=== PATIENT | female | born 1960 | race Caucasian/White ===

== ENCOUNTER 2017-03-06 12:40 | Emergency (ER) | payer MEDICAID, SELFPAY ==
[2017-03-06 12:40] VITALS: BP 160/103; PULSE 67; RESP 18; TEMP 36.5; O2SAT 98; BMI 20.7
--- NOTE | 2017-03-06 13:23 | RAD_ITS ---
STUDY: X-RAY CHEST REASON FOR EXAM: Female, 56 years old. Shortness of breath. Hypertension. Left arm tightness. TECHNIQUE: Single AP portable view of the chest. COMPARISON: Comparison is made with prior study dated November 07, 2012. FINDINGS: EKG electrodes are seen. Hyperinflation. Scattered calcified granulomas. The lungs are clear. There is no demonstrated pleural abnormality. Normal size heart. Normal mediastinum and katina. Normal visualized pulmonary arteries. Normal visualized aortic arch and descending thoracic aorta. There are degenerative changes of the visualized thoracic spine. Normal visualized ribs, clavicles, and shoulders. There is no demonstrated abnormality of the visualized soft tissue structures of the upper abdomen. RAD/Chest 1 View (Portable) IMPRESSION: Normal x-ray examination of the chest. Electronically Signed: Edis Esparza MD at 14:06 EST Tel [phone], Service support ,
--- NOTE | 2017-03-06 13:23 | EKG12_ITS ---
Test Reason : CP Blood Pressure : / mmHG Vent. Rate : 066 BPM Atrial Rate : 066 BPM P-R Int : 116 ms QRS Dur : 086 ms QT Int : 390 ms P-R-T Axes : 040 025 056 degrees QTc Int : 408 ms Normal sinus rhythm Normal ECG Confirmed by RANJITH RUSSELL ([id number]), publishing editor GELACIO RATLIFF ([id number]) on 03/09/2017 1:24:52 PM Referred By: OFELIA Confirmed By:RANJITH RUSSELL
[2017-03-06 13:25] VITALS: BP 135/77; PULSE 67; RESP 22; O2SAT 96
[2017-03-06] MEDS: Aspirin 81 MG TAB.CHEW 324 MG PO (13:32)
[2017-03-06 13:34] LABS: Absolute Lymphocyte Count 2.29 X10^3/ul (0.83-4.51); Absolute Neutrophil Count 5.4 X10^3/uL (2.0-7.7); Basophil# 0.02 X10^3/uL; Basophil% 0.2 % (0-1); Eosinophil# 0.21 X10^3/uL; Eosinophils% 2.5 % (0-5); Hematocrit 40.3 % (37-47); Hemoglobin 12.8 g/dl (12.0-15.0); Lymphocyte # 2.29 X10^3/ul (4.0); Lymphocyte % 27.3 % (19-41); Mean Corp Hgb Conc 31.8 g/gl (32-36); Mean Corpuscular Hgb 28.1 pg (27.0-32.0); Mean Corpuscular Volume 88.4 fL (81-99); Monocyte# 0.44 X10^3/uL; Monocyte% 5.3 % (0-10); Neutrophil % 64.5 % (47-70); POSITIVE COUNT NO; POSITIVE DIFFERENTIAL NO; POSITIVE MORPHOLOGY NO; Platelet Count 219 K/mm3 (150-450); RBC Distribution Width CV 14.3 % (11.6-14.6); RBC Distribution Width SD 45.7 fl (35.1-43.9); Red Blood Count 4.56 M/mm3 (4.2-5.4); White Blood Count 8.4 K/mm3 (4.4-11.0)
[2017-03-06 13:48] VITALS: O2SAT 97
[2017-03-06 13:50] LABS: Anion Gap 9 (5-15); BUN 11 mg/dL (7-18); BUN/Creat Ratio 11.5 RATIO (10-20); Calcium,Total 9.2 mg/dL (8.5-10.1); Chloride 105 mmol/L (98-107); Creatinine, Serum 0.96 mg/dL (0.55-1.02); D-Dimer Quantitative (DVT/PE) < 0.27 FEU/ug/m (0.27-0.49); EST Glomerular Filtration Rate 64 mL/min (>60); Est Glom Filt Rate - Afr Amer 77 mL/min (>60); Estimated Creatinine Clearance 57.17 ml/min; Glucose 139 mg/dL (70-110); Potassium 3.7 mmol/L (3.5-5.1); Sodium Level 143 mmol/L (136-145)
[2017-03-06] MEDS: 0.9% Normal Saline 1,000 ML 150 ML IV (13:52)
--- NOTE | 2017-03-06 14:24 | ED.DCSUM_ITS ---
- ER Visit Summary Date of Service: 03/06/17 Chief Complaint: Chest pain History of Present Illness: The patient is a [address] Mackey for breast cancer with metastases. She does not have a primary care physician. Reports that she has chest pain again approximately 3 weeks ago. She describes as a constant waxing and waning tightness that is 8 out of 10 at worst and 6 out of 10 currently. Is worsened by nothing including exertion. It is not pleuritic. It is relieved by nothing. Reports that she has had nausea, diaphoresis, and shortness of breath. However, she is related these to an estrogen wanda that she is on. Physical Examination: Vitals: Stable. Afebrile. General: Well-nourished and well-developed. Head: Normocephalic atraumatic. Neck: Supple, no lymphadenopathy. No JVD. Nontender. Cardiovascular: Regular rate and rhythm. No murmurs. Respiratory: No respiratory distress. Clear to auscultation bilaterally. Abdominal: Soft, nontender, nondistended, normal bowel sounds. No guarding, rebound, or peritoneal signs. Back: Nontender. Extremities: Nontender, no edema. Skin: Normal color, no rash. Neurologic: Alert and oriented ?3. Cranial nerves II through XII are intact. Normal strength and sensation. Psych: Normal affect. Test Results: EKG is sinus at 66 with no acute changes. Chest x-ray is normal. CBC is normal. Chem-7 is marked for glucose 139. Troponin is negative. D- dimer is negative. Emergency Department Course and Treatment: Patient was initially treated with aspirin p.o. She was given albuterol aerosol with no relief. Treatment Plan: Patient is resting comfortably would like to go home. She will be discharged instructions to follow-up with Dr. Myers in 3-5 days for another exam. Return to the emergency department for any worsening symptoms. Disposition: To home in improved and stable condition. Impression: 1. Atypical chest pain. This note was generated with [employer] dictation software. It may contain incorrect words, spelling, and punctuation that were not noted in review of the chart prior to signing ED Disposition - Plan for ED Patient: Disposition: Home or Assisted Living Chief Complaint: Hypertension Instructions: ED Chest Pain Atypical Unkn Cause Referrals: George Low MD [STAFF PHYSICIAN] - 5-7 Days
[2017-03-06] MEDS: Albuterol 2.5 MG/3 ML VIAL.NEB. INHALATION (14:43)
[2017-03-06 14:45] VITALS: PULSE 68; RESP 10
[2017-03-06 15:08] VITALS: BP 128/78; PULSE 69; RESP 20; O2SAT 96
== END 2017-03-06 15:10 | disposition home or self-care (01) ==
LOC: ED 14:13
PROVIDERS: Emergency Provider Emergency Medicine
DX: R07.89 Other chest pain (principal); C50.919 Malignant neoplasm of unspecified site of unspecified female breast; R11.0 Nausea; R61 Generalized hyperhidrosis; R06.00 Dyspnea, unspecified; I49.3 Ventricular premature depolarization; Z90.11 Acquired absence of right breast and nipple; Z90.710 Acquired absence of both cervix and uterus; Z72.89 Other problems related to lifestyle; F17.210 Nicotine dependence, cigarettes, uncomplicated; Z79.818 Long term (current) use of other agents affecting estrogen receptors and estrogen levels
CPT/HCPCS: 71045; 80048; 84484; 85025; 85379; 93005; 94640; 96360; 99285; J7050; A4216

== ENCOUNTER 2019-02-25 09:30 | Outpatient (RCR) | payer MEDICAID, SELFPAY ==
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
--- NOTE | 2019-04-19 14:00 | HP.PT.NRP ---
HP - Discharge Summary (1) - Patient Information CELINA FRANKLIN was seen in my office for initial evaluation on 01/15/19. The following Plan of Care was established for this patient: Initial Frequency: 2x /Week Initial Duration: 4-6 Weeks - Anticipated Interventions Patient/Client Instruction: Educate patient on: Condition, Plan of Care, Risk Factors, Benefits of Fitness Program For the Purpose of:: To improve self management Therapeutic Exercise to Include: Strength training, Body mechanics, Postural training, In an aquatic setting, Dynamic Lumbar Stabilization For the Purpose of:: To decrease pain, To decrease swelling/inflammation, To improve muscle performance and motor function, To improve ability of physical actions for home/community/work/leisure, To improve gait and locomotor functions This patient was last seen in our office 02/25/19. Pertinent comments regarding their Physical therapy will appear below: This patient has not returned to Physical Therapy and is appropriate to return to MD for further follow-up as needed. At this point I will be discontinuing this patient from physical therapy. I would be happy to see this patient again in the future if found appropriate by the physician. Thank you! Sarah Seaman, PT, Cert MDT
== END 2019-02-25 19:00 | disposition home or self-care (01) ==
LOC: PT 09:30
DX: S39.012D Strain of muscle, fascia and tendon of lower back, subsequent encounter (principal)
CPT/HCPCS: 97014; 97035; 97110; 97113; 97162; 97530; G0283

== ENCOUNTER → 2019-12-18 14:20 | Outpatient (CLI) | payer MEDICAID, SELFPAY ==
--- NOTE | 2019-12-18 15:59 | NEURO ---
NCS and/or EMG Patient Report Ordering Doctor: Jose Angel Cunningham DATE OF SERVICE: 12/18/19 Shakira Reagan presents for electrodiagnostic testing of the upper limbs. She reports numbness and tingling in both hands. She reports a history of carpal tunnel release. Electrodiagnostic findings: Median motor nerve demonstrates normal distal latency, amplitude and conduction velocity bilaterally. Ulnar motor response within normal limits bilaterally. Normal median ulnar F-wave. Sensory responses are within normal limits. Needle EMG testing was performed in the left upper limb and showed no evidence of denervation with normal motor unit action potentials. Patient refused testing in the right upper limb. Electrodiagnostic assessment: This is a normal electrodiagnostic study of the upper limbs. There is no electrodiagnostic evidence noted for peripheral neuropathy, including carpal tunnel syndrome. If there are any further questions, please do not hesitate to contact me.
== END ==
PROVIDERS: Referring Provider Orthopaedic Surgery; Visit Provider Orthopaedic Surgery
DX: G56.01 Carpal tunnel syndrome, right upper limb (principal)
CPT/HCPCS: 95886; 95913

== ENCOUNTER 2021-07-08 16:09 | Emergency (ER) | payer MEDICAID, SELFPAY ==
[2021-07-08 16:10] VITALS: BP 150/93; PULSE 71; RESP 18; TEMP 36.4; O2SAT 96; BMI 20.9
--- NOTE | 2021-07-08 16:29 | EDS_ITS ---
HPI HPI - GI History of Present Illness Chief Complaint: Nausea/Vomiting/Diarrhea Narrative Narrative: Patient presents with nausea, vomiting, and diarrhea that she has had for the last 2 days. She states it started out as loose stool that turned white, she states she also started passing small blood clots in her stool today. She does not take blood thinners. Today, she vomited twice because she felt sick to her stomach and nauseated. She denies any fevers or chills. No significant prior abdominal surgeries. She feels weak, and exhausted. She denies any recent antibiotic use. No problems with dysuria or hematuria. She complains of abdominal cramping. [facility] Medical History Breast CA Home Medications biotin 2 mg PO QWEEK 03/06/17 [History Last Taken Unknown] mv-min-vit C-Glu-Kym [id number] [Airborne Tablet Chewable] 1 ea PO PRN PRN 03/06/17 [History Last Taken Unknown] ciprofloxacin HCl [Cipro] 500 mg PO DAILY 5 Days #5 tab 07/08/21 [Rx Last Taken Unknown] famotidine [Pepcid] 20 mg PO DAILY 07/08/21 [History Last Taken Unknown] pantoprazole [Protonix] 40 mg PO BID 7 Days #14 tab 07/08/21 [Rx Last Taken Unknown] varenicline [Chantix] 0.5 mg PO BID 07/08/21 [History Last Taken Unknown] Allergy/AdvReac Type Severity Reaction Status Date / Time anastrozole [From Arimidex] Allergy Unknown Verified 07/08/21 16:12 exemestane [From Aromasin] Allergy Unknown Verified 07/08/21 16:12 letrozole Allergy Unknown Verified 07/08/21 16:12 tamoxifen Allergy Unknown Verified 07/08/21 16:12 Social History Smoking Status: Current every day smoker tobacco type: cigarettes ROS ROS ED ROS Narrative Constitutional: No fever, no chills. HEENT: No sore throat. No neck pain. No loss of vision. No rhinorrhea. Cardiovascular: No chest pain. No palpitations. No pedal edema. Respiratory: No cough, no shortness of breath. Abdominal: Diffuse, crampy abdominal pain. Positive nausea. 2 episodes of nonbloody vomiting. Multiple episodes of diarrhea/loose stool. Possibly passing small blood clots. Genitourinary: No dysuria. No hematuria. Musculoskeletal: No myalgias. No arthralgias. Neurologic: No headaches. No dizziness. No lightheadedness. Skin: No rash. No change in color. Psychiatric: No depression. No anxiety. EXAM Physical Exam Narrative Exam Narrative: Afebrile. Vital signs noted. HEENT: Normocephalic. Atraumatic. PERRL, EOMI. Neck soft and supple. No point tenderness or step off. Cardiovascular: Regular rate and rhythm. No murmurs, rubs, or gallops appreciated. Respiratory: No tachypnea. Lungs clear to auscultation bilaterally. Gastrointestinal: Abdomen soft, diffuse tenderness to palpation, with normoactive bowel sounds. No rebound or guarding. Neurological: Awake. Alert. Nonfocal, nonlateralizing. Skin: No rash. Normal color. No pallor. Musculoskeletal: No pedal edema. Full range of motion extremities. Const Vital Signs: 07/08/21 16:10 Temperature 97.5 F L Temperature Source Temporal Pulse Rate 71 Respiratory Rate 18 Blood Pressure 150/93 H Blood Pressure Mean 112 Pulse Ox 96 Oxygen Delivery Method Room Air MDM MDM MDM Narrative Medical decision making narrative: Comprehensive work-up was pursued. I will obtain a CBC, CMP, and lipase. I do feel CT imaging is indicated. She will be bolused normal saline 1 L intravenously and ondansetron for her nausea and vomiting. Patient has a normal white count of 6.8, hemoglobin normal at 12.5, platelet count normal at 230. Electrolyte panel shows chloride slightly elevated at 108 but normal sodium and potassium. Glucose normal at 96. Lipase normal at 171. Urinalysis shows no evidence of infection. I do not feel antibiotics are indicated. Her CT of the abdomen pelvis does show gastritis and colitis. I discussed patient with Dr. Hart. She will be placed on 5 days of Cipro once a day and also on Protonix twice a day for 7 days. She will follow- up with gastroenterology. She would like to go home. I feel she can be discharged safely home with follow-up. Return instructions to the emergency department were reviewed. Disposition is discharged home in stable condition. Lab Data Attestation: I reviewed the patient's lab results. Labs: Laboratory Results - last 24 hr 07/08/21 07/08/21 07/08/21 16:39 16:39 17:00 WBC 6.8 RBC 4.42 Hgb 12.5 Hct 39.1 MCV 88.5 MCH 28.3 MCHC 32.0 RDW Std Deviation 43.1 RDW Coeff of Rylee 13.2 Plt Count 230 MPV 8.9 Immature Gran % (Auto) 0.300 Neut % (Auto) 60.3 Lymph % (Auto) 27.8 Davidson % (Auto) 7.8 Eos % (Auto) 3.5 Baso % (Auto) 0.3 Absolute Neuts (auto) 4.1 Absolute Lymphs (auto) 1.88 Nucleated RBC % 0 Sodium 142 Potassium 3.7 Chloride 108 H Carbon Dioxide 28.0 Anion Gap 6 BUN 14 Creatinine 0.84 Estim Creat Clear Calc 64.64 Est GFR (MDRD) Af Amer 88 Est GFR (MDRD) Non-Af 72 BUN/Creatinine Ratio 16.6 Glucose 96 Calcium 9.2 Total Bilirubin 0.30 AST 44 H ALT 32 Alkaline Phosphatase 77 Total Protein 7.2 Albumin 3.9 Globulin 3.3 Albumin/Globulin Ratio 1.2 Lipase 171 Urine Color Yellow Urine Clarity Clear Urine pH 6.5 Ur Specific [place] 1.010 Urine Protein Negative Urine Glucose (UA) Normal Urine Ketones Negative Urine Occult Blood Negative Urine Nitrite Negative Urine Bilirubin Negative Urine Urobilinogen Normal Ur Leukocyte Esterase Negative Urine RBC 0 SEEN Urine WBC 0 SEEN Ur Squamous Epith Cells 0-5 SEEN Urine Bacteria RARE Urine Mucus 0 SEEN Radiography Diagnostic Testing: Clinical Impression(s) from Imaging Studies Abdomen/Pelvis CT 07/08/21 17:29 IMPRESSION: (NOT LISTED IN ORDER OF SIGNIFICANCE) Gastritis. Distal colitis. Other findings as above. Electronically Signed: Herbie Breaux MD at 18:00 EDT , Discharge Plan Triage Chief Complaint: Nausea/Vomiting/Diarrhea ED Provider: Tanner Sherman Dx/Rx/DC Orders Clinical Impression: Gastritis, Colitis, Nausea vomiting and diarrhea Instructions: ED Understanding Colitis, ED Gastritis (Adult) Prescriptions: New ciprofloxacin HCl [Cipro] 500 mg tablet 500 mg PO DAILY 5 Days Qty: 5 RF: 0 pantoprazole [Protonix] 40 mg tablet,delayed release (DR/EC) 40 mg PO BID 7 Days Qty: 14 RF: 0 No Action mv-min-vit C-Glu-Kym [id number] [Airborne (with lysine acetate)] 1 EACH tablet,chewable 1 ea PO PRN PRN (Reason: Not Specified) RF: 0 biotin 1 MG capsule 2 mg PO QWEEK RF: 0 famotidine [Pepcid] 20 mg Tablet 20 mg PO DAILY RF: 0 varenicline [Chantix] 0.5 mg Tablet 0.5 mg PO BID RF: 0 Primary Care Provider: Christiano Wooten Referrals: Curtis Hart DO [STAFF PHYSICIAN] - As soon as possible Christiano Wooten MD [Primary Care Provider] - Disposition Disposition: Home, Self Care Discharge Date/Time: 07/08/21 19:04
[2021-07-08 16:56] LABS: Absolute Lymphocyte Count 1.88 X10^3/uL (0.83-4.51); Absolute Neutrophil Count 4.1 X10^3/uL (2.0-7.7); Basophil# 0.02 X10^3/uL; Basophil% 0.3 % (0-1); Eosinophil# 0.24 X10^3/uL; Eosinophils% 3.5 % (0-5); Hematocrit 39.1 % (37-47); Hemoglobin 12.5 g/dL (12.0-15.0); Lymphocyte # 1.88 X10^3/ul (0.83-4.51); Lymphocyte % 27.8 % (19-41); Mean Corpuscular Hgb 28.3 pg (27.0-32.0); Mean Corpuscular Volume 88.5 fL (81-99); Mean Platelet Vol. 8.9 fl (6.2-12.0); Monocyte# 0.53 X10^3/uL; Monocyte% 7.8 % (0-10); NRBC Flagged by Analyzer 0 % (0-5); Neutrophil # 4.08 X10^3/uL (2.7-7.7); Neutrophil % 60.3 % (47-70); Platelet Count 230 K/mm3 (150-450); RBC Distribution Width CV 13.2 % (11.6-14.6); RBC Distribution Width SD 43.1 fl (35.1-43.9); Red Blood Count 4.42 M/mm3 (4.2-5.4); White Blood Count 6.8 K/mm3 (4.4-11.0)
[2021-07-08] MEDS: 0.9% Normal Saline 1,000 ML 1000 ML IV (16:57)
[2021-07-08] MEDS: Ondansetron 4 MG/2 ML Vial IV (16:58)
[2021-07-08 17:08] LABS: Mucous, Urine 0 SEEN /hpf (<or=2+); Red Blood Cells-Urine 0 SEEN /hpf (0-5)
[2021-07-08 17:13] LABS: ALB/GLOB Ratio 1.2 RATIO (0.9-2.4); AST(SGOT) 44 U/L (15-37); Alanine Aminotransfer ALT/SGPT 32 U/L (13-56); Albumin, Serum 3.9 g/dL (3.2-5.0); Alkaline Phosphatase 77 U/L (45-117); Anion Gap 6 (5-15); BUN 14 mg/dL (7-18); BUN/Creat Ratio 16.6 RATIO (10-20); Calcium,Total 9.2 mg/dL (8.5-10.1); Chloride 108 mmol/L (98-107); Creatinine, Serum 0.84 mg/dL (0.55-1.02); EST Glomerular Filtration Rate 72 mL/min (>60); Est Glom Filt Rate - Afr Amer 88 mL/min (>60); Estimated Creatinine Clearance 64.64 ml/min; Globulin 3.3 g/dL (2.2-4.2); Glucose 96 mg/dL (74-106); Lipase 171 U/L (73-393); Potassium 3.7 mmol/L (3.5-5.1); Protein, Total 7.2 g/dL (6.4-8.2); Sodium Level 142 mmol/L (136-145)
[2021-07-08 17:27] LABS: Color, Urine Yellow (Yellow); Glucose, Dipstick Normal (Normal); Ketone-Dipstick Negative (Negative); Leukocyte Esterase-Dipstick Negative /ul (Negative); Nitrite-Dipstick Negative (Negative); Occult Blood-Urine Negative /ul (Negative); Protein-Dipstick Negative (Negative); Urine Bilirubin Dipstick Negative (Negative); Urine Clarity Clear (Clear); Urine Urobilinogen Normal (Normal); Urine pH 6.5 (5.0 - 8.0)
--- NOTE | 2021-07-08 17:29 | CT_ITS ---
STUDY: CT Abdomen And Pelvis W/ Contrast Injection 07/08/2021 5:57 PM REASON FOR EXAM: Female, 60 years old. ABDOMINAL PAIN Pain TECHNIQUE: Transaxial images were obtained without oral contrast, and IV 100mL Isovue-300 intravenous contrast. Individualized dose optimization techniques were used for this CT. COMPARISON: None. FINDINGS: The visualized lung bases are unremarkable. The visualized portions of the heart are within normal limits. Unremarkable liver. Unremarkable gallbladder and extrahepatic biliary system. Unremarkable spleen. Unremarkable pancreas. Unremarkable bilateral adrenal glands. No acute findings of the right kidney. No acute findings of the left kidney. Focal wall thickening of the antrum of stomach. This can suggest a gastritis. Unremarkable small intestine. There is wall thickening of the distal colon. There is also questionable inflammation around the colon. This can suggest a colitis. This can also suggest incomplete distension of the colon. The appendix is visualized and appears unremarkable. There are calcifications of the abdominal aorta. This is consistent for atherosclerotic disease. There is no abdominal aortic aneurysm. Unremarkable inferior vena cava. Subcentimeter mesenteric lymph nodes. Unremarkable urinary bladder. There is absence of the uterus consistent with a prior hysterectomy. There is an umbilical hernia containing fat. Unremarkable osseous structures. CT/Abdomen/Pelvis W IV Cont ONLY IMPRESSION: (NOT LISTED IN ORDER OF SIGNIFICANCE) Gastritis. Distal colitis. Other findings as above. Electronically Signed: Herbie Breaux MD at 18:00 EDT ,
[2021-07-08 17:40] LABS: Bacteria RARE /hpf (None Seen); Squamous Epithelial Cells - UA 0-5 SEEN /hpf (5-10)
[2021-07-08] MEDS: Ciprofloxacin 500 MG Tablet PO (19:01)
[2021-07-08] MEDS: Pantoprazole Sodium 40 MG Tablet PO (19:02)
[2021-07-08 20:19] LABS: White Blood Cells 0 SEEN /hpf (0-5)
== END 2021-07-08 19:04 | disposition home or self-care (01) ==
PROVIDERS: Emergency Provider Emergency Medicine; PCP Internal Medicine; Visit Provider Emergency Medicine
DX: K52.9 Noninfective gastroenteritis and colitis, unspecified (principal); F17.210 Nicotine dependence, cigarettes, uncomplicated; K29.70 Gastritis, unspecified, without bleeding; Z85.3 Personal history of malignant neoplasm of breast
CPT/HCPCS: 74177; 80053; 81001; 83690; 85025; 96361; 96374; 99283; J7030; Q9967; A4216; J2405

== ENCOUNTER 2021-07-28 08:07 | Emergency (ER) | payer MEDICAID, SELFPAY ==
[2021-07-28 08:08] VITALS: BP 160/89; PULSE 68; RESP 24; TEMP 36.3; O2SAT 95; BMI 21.0
--- NOTE | 2021-07-28 08:41 | EDS_ITS ---
HPI History of Present Illness Chief Complaint: Shortness of Breath Informant: patient Onset/Context/Timing Onset: Weeks (2) Context: gradual Timing: Continuous and Waxes and wanes Quality: Positive for Dyspnea on exertion and Wheezing Current Severity: Moderate Maximum Severity: Moderate Worsened by: Exertion and Coughing Relieved by: Rest Associated Symptoms cough Chest Pain: Positive for Tightness Narrative Narrative: Patient has been sick for about 2 weeks, coughing, wheezing, now she is hoarse. No fevers or chills. Had a home COVID test that was negative a couple times. She is not getting better. She was diagnosed with COPD but is on no maintenance medications for it and does not have an inhaler and really has never had a major flareup like this before. She has some chest tightness and points to the top of her chest and states it feels like it is up here, not in my lungs. No leg edema orthopnea. [facility] Medical History (Updated 07/28/21 @ 11:[address] Jose Angel Becerra MD) Breast CA COPD (chronic obstructive pulmonary disease) GERD (gastroesophageal reflux disease) Home Medications biotin 1 mg capsule 2 mg PO QWEEK 03/06/17 [History Last Taken Unknown] mv-min-vit [id number] tammy-herb #124 250 mg-12.5 mg chewable tablet (Airborne (with lysine acetate)) 1 ea PO PRN PRN Not Specified 03/06/17 [History Last Taken Unknown] ciprofloxacin HCl 500 mg tablet (Cipro) 500 mg PO DAILY 5 days #5 tabs 07/08/21 [Rx Last Taken Unknown] famotidine 20 mg tablet (Pepcid) 20 mg PO DAILY 07/08/21 [History Last Taken Unknown] pantoprazole 40 mg tablet,delayed release (Protonix) 40 mg PO BID 7 days #14 tabs 07/08/21 [Rx Last Taken Unknown] varenicline 0.5 mg tablet 0.5 mg PO BID 07/08/21 [History Last Taken Unknown] albuterol sulfate 90 mcg/actuation aerosol inhaler (Ventolin HFA) 1 - 2 puff inhalation Q4H PRN PRN Wheezing ##1 07/28/21 [Rx Last Taken Unknown] levofloxacin 750 mg tablet 750 mg PO Q24H #5 tabs 07/28/21 [Rx Last Taken Unknown] prednisone 10 mg tablet 10 mg PO DAILY #34 TABLETS 07/28/21 [Rx Last Taken Unknown] Allergy/AdvReac Type Severity Reaction Status Date / Time anastrozole [From Arimidex] Allergy Unknown Verified 07/28/21 08:44 exemestane [From Aromasin] Allergy Unknown Verified 07/28/21 08:44 letrozole Allergy Unknown Verified 07/28/21 08:44 tamoxifen Allergy Unknown Verified 07/28/21 08:44 Social History Smoking Status: Current every day smoker tobacco type: cigarettes ROS ROS ED Constitutional Constitutional ED: Denies chills or fever(s) Eyes Eyes: Denies change in vision or diplopia ENT ENT ED: Reports hoarseness; Denies rhinorrhea or sore throat Cardiovascular Cardiovascular: Denies chest pain or palpitations Respiratory/Chest Respiratory/Chest: Reports cough, dyspnea, dyspnea on exertion and wheezing Gastrointestinal Gastrointestinal: Denies abdominal pain, diarrhea, nausea or vomiting Genitourinary Genitourinary ED: Denies dysuria or hematuria Musculoskeletal Musculoskeletal: Denies back pain or neck pain Integumentary Denies abscess or rash Neurologic Neurologic: Denies headache(s), paresthesias or weakness Psychiatric Psychiatric: Denies anxiety or suicidal thoughts EXAM Physical Exam Const Vital Signs: 07/28/21 08:08 07/28/21 08:44 07/28/21 08:55 Temperature 97.3 F L Temperature Source Temporal Pulse Rate 68 73 Respiratory Rate 24 H 20 H Respiratory Effort Normal Non-Labored Respiratory Depth Normal Respiratory Pattern Normal Tachypnea Blood Pressure 160/89 H Blood Pressure Mean 112 Pulse Ox 95 Oxygen Delivery Method Room Air Room Air Positive well nourished and well developed General Appearance ED: well developed and NAD HEENT Reports moist mucous membranes HEENT Narrative: Hoarse voice. No stridor. normocephalic and atraumatic Eyes PERRL and EOMs intact bilaterally Neck full ROM, supple, no meningeal signs and no JVD Resp normal respiratory effort Resp Narrative: Diffuse inspiratory and expiratory wheezes Cardio regular rate, regular rhythm and no murmurs Rate: Negative for tachycardic GI non-tender and non-distended Auscultation: normoactive bowel sounds Palpation: soft Back/Spine no CVA tenderness General Back: other FROM Extremity normal to inspection General Extremety ED: Negative for edema, pulses abnormal or tenderness General Extremity: Negative for edema or pulses abnormal Neuro oriented x3, CN's II-XII intact bilaterally and no sensory deficits noted Sensorium / Orientation: awake and alert Motor Exam: strength 5/5 throughout Skin no rashes or lesions noted and no wounds MDM MDM MDM Narrative Medical decision making narrative: Patient feeling better after nebulizer treatments. She was started on prednisone 60 mg here. 2 view chest x-ray on my interpretation shows left lower lobe pneumonia. Radiology in agreement. She is not hypoxic and breathing better. She is not septic. I think she can be treated as an outpatient, states she was diagnosed with COPD but on no maintenance treatments. I want to have her referred to pulmonology at [facility], we will place her on Levaquin, steroids, and prescribe her a rescue inhaler which she also does not have. We discussed reasons to return. She is comfortable with that plan. Radiography Diagnostic Testing: Clinical Impression(s) from Imaging Studies Chest X-Ray 07/28/21 09:20 IMPRESSION: Left lower lobe infiltrate. Hyperinflation. Electronically Signed: Edis Esparza MD at 9:34 EDT , Discharge Plan Triage Chief Complaint: Shortness of Breath ED Provider: Jose Angel Becerra Dx/Rx/DC Orders Clinical Impression: Pneumonia, Acute exacerbation of chronic obstructive pulmonary disease Instructions: COPD Meds, ED COPD Flare, ED Pneumonia (Adult) Prescriptions: New levofloxacin 750 mg tablet 750 mg PO Q24H Qty: 5 0RF albuterol sulfate [Ventolin HFA] 90 mcg/actuation HFA aerosol inhaler 1 - 2 puff inhalation Q4H PRN PRN (Reason: Wheezing) Qty: 1 0RF prednisone 10 mg tablet 10 mg PO DAILY Qty: 34 0RF Rx Instructions: 4 po qd x 4 days, 3 po qd x 3 days, 2 po qd x 3 days, 1 po qd x 3 days No Action mv-min-vit C-Glu-Kym [id number] [Airborne (with lysine acetate)] 1 EACH tablet,chewable 1 ea PO PRN PRN (Reason: Not Specified) biotin 1 MG capsule 2 mg PO QWEEK famotidine [Pepcid] 20 mg Tablet 20 mg PO DAILY varenicline [Chantix] 0.5 mg Tablet 0.5 mg PO BID ciprofloxacin HCl [Cipro] 500 mg tablet 500 mg PO DAILY 5 Days Qty: 5 0RF pantoprazole [Protonix] 40 mg tablet,delayed release (DR/EC) 40 mg PO BID 7 Days Qty: 14 0RF Primary Care Provider: Christiano Wooten Referrals: Khai Doherty MD [NON-STAFF] - (Call for appointment to be seen by any provider) Christiano Wooten MD [Primary Care Provider] - Disposition Disposition: Home, Self Care
[2021-07-28] MEDS: predniSONE 20 MG Tablet 60 MG PO (08:50)
[2021-07-28] MEDS: Ipratropium/Albuterol Sulfate 3 ML AMPUL.NEB INHALATION (08:51)
[2021-07-28] MEDS: Albuterol 2.5 MG/3 ML VIAL.NEB. INHALATION ×2 (08:51)
[2021-07-28 08:55] VITALS: PULSE 73; RESP 20
--- NOTE | 2021-07-28 09:20 | RAD_ITS ---
STUDY: X-RAY CHEST REASON FOR EXAM: Female, 60 years old. Cough sob TECHNIQUE: PA and lateral views of the chest. COMPARISON: Comparison is made with prior study 03/06/2017. FINDINGS: There is hyperinflation of the lungs consistent with chronic obstructive lung disease (COPD). Left lower lobe infiltrate. There is no demonstrated pleural abnormality. Normal size heart. Normal mediastinum and katina. Normal visualized pulmonary arteries. Normal visualized aortic arch and descending thoracic aorta. Normal visualized thoracic spine. Normal visualized ribs, clavicles, and shoulders. There is no demonstrated abnormality of the visualized soft tissue structures of the upper abdomen. RAD/Chest PA and Lateral IMPRESSION: Left lower lobe infiltrate. Hyperinflation. Electronically Signed: Edis Esparza MD at 9:34 EDT ,
[2021-07-28 11:24] VITALS: BP 138/78; PULSE 75; RESP 20; TEMP 37.2; O2SAT 94
== END 2021-07-28 11:26 | disposition home or self-care (01) ==
PROVIDERS: Emergency Provider Emergency Medicine; PCP Internal Medicine; Visit Provider Emergency Medicine
DX: J44.0 Chronic obstructive pulmonary disease with (acute) lower respiratory infection (principal); J44.1 Chronic obstructive pulmonary disease with (acute) exacerbation; J18.9 Pneumonia, unspecified organism; F17.210 Nicotine dependence, cigarettes, uncomplicated; K21.9 Gastro-esophageal reflux disease without esophagitis; Z85.3 Personal history of malignant neoplasm of breast
CPT/HCPCS: 71046; 94640; 99282

== ENCOUNTER 2022-05-30 08:21 | Emergency (ER) | payer OTHER, MEDICAID, SELFPAY ==
[2022-05-30 08:23] VITALS: BP 150/64; PULSE 67; RESP 14; TEMP 36.3; O2SAT 97; BMI 24.2
--- NOTE | 2022-05-30 08:34 | EKG12_ITS ---
Test Reason : CP Blood Pressure : / mmHG Vent. Rate : 063 BPM Atrial Rate : 063 BPM P-R Int : 102 ms QRS Dur : 076 ms QT Int : 404 ms P-R-T Axes : -23 025 065 degrees QTc Int : 413 ms Sinus rhythm with short AR Otherwise normal ECG Confirmed by FRANCINE MTZ ([id number]), video news editor SHANTE KNIGHT ([id number]) on 06/01/2022 1:15:14 PM Referred By: SAMUEL Confirmed By:FRANCINE MTZ
--- NOTE | 2022-05-30 08:35 | RAD_ITS ---
STUDY: X-RAY CHEST REASON FOR EXAM: Female, 61 years old. Chest discomfort and dyspnea TECHNIQUE: PA and lateral views of the chest. COMPARISON: Comparison is made with prior study dated July 28, 2021. FINDINGS: EKG electrodes are seen. Hyperinflation. No acute abnormality is seen. There is no demonstrated pleural abnormality. Normal size heart. Normal mediastinum and katina. Normal visualized pulmonary arteries. Normal visualized aortic arch and descending thoracic aorta. There are degenerative changes of the visualized thoracic spine. Normal visualized ribs, clavicles, and shoulders. There is no demonstrated abnormality of the visualized soft tissue structures of the upper abdomen. RAD/Chest PA and Lateral IMPRESSION: Hyperinflation. The lungs are clear. Electronically Signed: Edis Esparza MD at 9:37 EDT ,
--- NOTE | 2022-05-30 08:49 | EX.ED.DYSGE1 ---
HPI History of Present Illness Chief Complaint: Chest Pain Detail of Chief Complaint: Chest pain, dyspnea, urologic symptoms Informant: patient Onset/Context/Timing Onset: Today (The chest discomfort and shortness of breath started at 0430.) and Weeks (Patient not felt well for approximately 1 week and has noted bubbling of her urine for the past several days) Context: Sudden Onset Timing: Continuous Quality: Sense of unwellness, chest discomfort that is described as dull and pleurit Location: Central chest and generalized Current Severity: Mild Maximum Severity: Moderate Worsened by: Nothing specific Relieved by: Nothing Associated Symptoms Associated Symptoms: Nausea without vomiting or diarrhea Narrative Narrative: Patient is a 61-year-old woman diagnosed with breast cancer in 2012 in a research study. Patient scheduled follow-up with her specialist since there was a abnormality noted left breast. She states she was estrogen and HER2 positive. The chest discomfort started 0430 getting ready for work. Located in the center of her chest. Describes a dull discomfort. There is no radiation or associated symptoms. She does report shortness of breath. Nothing makes the shortness of breath worse. There is a pleuritic component as well to the chest pain. She denies fever, chills night sweats. She denies upper respiratory tract infectious symptoms. She denies dysuria but states that there is bubbling in her urine and its warm . She has not noted any blood. She does complain of some left lower back pain. There is no history of trauma. She denies headache, visual, ocular auditory symptoms. She denies history of renal ureterolithiasis. She denies history of PE or DVT. She does have history of breast cancer and states there is a new abnormality noted left breast which needs further investigation. Prior similar symptoms: No Recent Illness/Hospitalization: No [facility] Medical History Breast CA COPD (chronic obstructive pulmonary disease) GERD (gastroesophageal reflux disease) Home Medications biotin 1 mg capsule 2 mg PO QWEEK 03/06/17 [History Last Taken Unknown] mv-min-vit H-yhau-abquxs tammy-herb #124 250 mg-12.5 mg chewable tablet (Airborne (with lysine acetate)) 1 ea PO PRN PRN Not Specified 03/06/17 [History Last Taken Unknown] varenicline 0.5 mg tablet 0.5 mg PO BID 07/08/21 [History Last Taken Unknown] albuterol sulfate 90 mcg/actuation aerosol inhaler (Ventolin HFA) 1 - 2 puff inhalation Q4H PRN PRN Wheezing ##1 07/28/21 [Rx Last Taken Unknown] Allergy/AdvReac Type Severity Reaction Status Date / Time anastrozole [From Arimidex] Allergy Unknown Verified 05/30/22 08:24 exemestane [From Aromasin] Allergy Unknown Verified 05/30/22 08:24 letrozole Allergy Unknown Verified 05/30/22 08:24 tamoxifen Allergy Unknown Verified 05/30/22 08:24 Family History Sister Colon cancer Anemia Father Anemia Myocardial infarction Father Bowel disease Heart disease Surgical History H/O total hysterectomy Hx of mastectomy Social History (Updated 05/30/22 @ 08:[address] Shelton Hendrickson MD) Smoking Status: Former smoker quit date: 05/14/21 substance use type: does not use ROS ROS ED Constitutional Constitutional ED: Reports other Details: Patient states her normal weight is 117. She now weighs 150. ; Denies chills, fever(s), subjective, sweats or weight loss Eyes Eyes: Denies blurry vision, change in vision or diplopia ENT ENT ED: Denies ear pain, rhinorrhea or sore throat Cardiovascular Cardiovascular: Reports chest pain and palpitations; Denies orthopnea, paroxysmal nocturnal dyspnea or racing heartbeat Respiratory/Chest Respiratory/Chest: Reports dyspnea; Denies cough, dyspnea on exertion, orthopnea or paroxysmal nocturnal dyspnea Gastrointestinal Gastrointestinal: Reports nausea; Denies abdominal pain, diarrhea or vomiting Genitourinary Genitourinary ED: Denies dysuria, hematuria or urinary frequency Musculoskeletal Musculoskeletal: Reports back pain; Denies arthralgias, myalgias or neck pain Integumentary Denies abscess, Abrasions or rash Neurologic Neurologic: Denies headache(s), paresthesias or weakness Endocrine Endocrinology: Denies cold intolerance or heat intolerance Hematologic/Lymphatic Hematologic/Lymphatic: Reports systems reviewed and no addt'l complaints, except as documented EXAM Physical Exam Narrative Exam Narrative: Vital signs are markable for slightly elevated blood pressure. Const Vital Signs: 05/30/22 08:23 05/30/22 08:56 Temperature 97.3 F L Temperature Source Temporal Pulse Rate 67 Respiratory Rate 14 Respiratory Effort Normal Non-Labored Blood Pressure 150/64 H Blood Pressure Mean 92 Pulse Ox 97 Oxygen Delivery Method Room Air Positive well nourished and well developed General Appearance ED: well developed and NAD; Negative for cyanotic, diaphoretic or pallor HEENT Reports moist mucous membranes HEENT Narrative: Head is atraumatic normocephalic. Ears normal. Nares patent. Uvula midline. No abnormality the posterior pharynx. Eyes PERRL Neck no lymphadenopathy, supple and no JVD Chest Wall inspection of chest normal and palpation of chest normal Resp normal respiratory effort and clear to auscultation bilaterally Cardio regular rate, regular rhythm, S1 normal heart sound, S2 normal heart sound and no murmurs GI normal to inspection, nondistended, normoactive bowel sounds, non-tender, non-distended and no masses; Negative for hepatosplenomegaly Back/Spine no CVA tenderness Thoracic Spine / Upper Back: Negative for thoracic spinal tenderness Lumbar Spine / Lower Back: Negative for lumbar spinal tenderness Extremity normal to inspection Extremity Narrative: There is no asymmetry, swelling, discoloration, leg vein distention, palpable cords or tenderness along the distribution of the deep venous system. General Extremety ED: Negative for edema or tenderness General Extremity: Negative for edema Neuro oriented x3, CN's II-XII intact bilaterally and no sensory deficits noted Sensorium / Orientation: alert Psych mental status grossly normal Skin no rashes or lesions noted, no wounds and skin turgor normal General Skin Exam: Negative for jaundice or pallor MDM MDM MDM Narrative Medical decision making narrative: AndWith complaint of chest pain that has a pleuritic component and history of breast cancer with an apparent new left breast lesion shortness of breath we will obtain D-dimer to screen for possible PE as well as chest x-ray. EKG was obtained to assess for cardiac ischemia. Troponin was obtained to evaluate if pain is due to cardiac etiology. Since she complains of urologic symptoms UA was ordered. CBC to assess white count and differential as well as H&H. BMP to assess renal function. History & Record Review Additional record(s) reviewed:: Prior outpatient record (Outside records indicate patient has stage IIIb right breast cancer. Patient is in an experimental trial.) and Prior ED visit (Minimal ER records for minor complaints.) Lab Data Attestation: I reviewed the patient's lab results. Lab results narrative: CBC is unremarkable. UA macro is positive for leukoesterase only and slightly cloudy. Basic metabolic panel is unremarkable. Chloride is slightly evaded 108. D-dimer is less than 0.2's. Troponin is normal with 5 hours of pain. UA reveals pyuria without bacteria. Per recent department meeting and review of the literature blood culture was ordered and no antibiotics were started. Labs: Laboratory Results - last 24 hr 05/30/22 05/30/22 05/30/22 08:40 08:40 08:40 WBC 5.3 RBC 4.45 Hgb 12.4 Hct 39.2 MCV 88.1 MCH 27.9 MCHC 31.6 L RDW Std Deviation 41.1 RDW Coeff of Rylee 12.7 Plt Count 172 MPV 9.0 Immature Gran % (Auto) 0.400 Neut % (Auto) 64.2 Lymph % (Auto) 24.8 [place] % (Auto) 6.4 Eos % (Auto) 3.8 Baso % (Auto) 0.4 Absolute Neuts (auto) 3.4 Absolute Lymphs (auto) 1.31 Nucleated RBC % 0 D-Dimer Quant (PE/DVT) Sodium 139 Potassium 3.7 Chloride 108 H Carbon Dioxide 25.0 Anion Gap 6 BUN 13 Creatinine 0.99 Estim Creat Clear Calc 54.45 Est GFR (MDRD) Af Amer 73 Est GFR (MDRD) Non-Af 60 BUN/Creatinine Ratio 13.2 Glucose 103 Calcium 9.4 Troponin I High Sens 9 Urine Color Yellow Urine Clarity Sl. Cloudy Urine pH 7.0 Ur Specific [place] 1.010 Urine Protein Negative Urine Glucose (UA) Normal Urine Ketones Negative Urine Occult Blood Negative Urine Nitrite Negative Urine Bilirubin Negative Urine Urobilinogen Normal Ur Leukocyte Esterase 100 H Urine RBC 0 SEEN Urine WBC 10-25 SEEN Ur Squamous Epith Cells 0-5 SEEN Urine Bacteria 0 SEEN Urine Mucus 0 SEEN 05/30/22 08:40 WBC RBC Hgb Hct MCV MCH MCHC RDW Std Deviation RDW Coeff of Rylee Plt Count MPV Immature Gran % (Auto) Neut % (Auto) Lymph % (Auto) [place] % (Auto) Eos % (Auto) Baso % (Auto) Absolute Neuts (auto) Absolute Lymphs (auto) Nucleated RBC % D-Dimer Quant (PE/DVT) < 0.27 L Sodium Potassium Chloride Carbon Dioxide Anion Gap BUN Creatinine Estim Creat Clear Calc Est GFR (MDRD) Af Amer Est GFR (MDRD) Non-Af BUN/Creatinine Ratio Glucose Calcium Troponin I High Sens Urine Color Urine Clarity Urine pH Ur Specific [place] Urine Protein Urine Glucose (UA) Urine Ketones Urine Occult Blood Urine Nitrite Urine Bilirubin Urine Urobilinogen Ur Leukocyte Esterase Urine RBC Urine WBC Ur Squamous Epith Cells Urine Bacteria Urine Mucus Radiography Chest X-Ray - ED: 2 View and Read by ED Physician (Cardiac silhouette size unremarkable. Perihilar region unremarkable. Lung parenchyma shows minimal chronic changes consistent with COPD. Osseous structures unremarkable.) EKG Initial EKG: Attestation: I personally reviewed and interpreted this EKG as follows: Interpretation: Sinus Rhythm (There are no ischemic findings with discomfort. Rate is 63. There is a short HI interval. HI interval is under 2 ms. Cures duration 76 ms. QT duration 402 ms. [place] is normal.) Differential Diagnosis Chest pain/SOB: pulmonary embolism Reason(s) PE less likely: Positive for D-Dimer negative, not tachycardic and not hypoxic, ACS ACS: Positive for no evidence of ACS based on cardiac biomarkers, EKG without ischemia and history not suggestive of ischemia pain, pneumothorax Reason(s) pneumothorax less likely: Positive for bilateral breath sounds and PIE BOTTOMER withhout PTX, aortic dissection Reason(s) Aortic dissection less likely:: Positive for normal vascular exam, no history of HTN, normal neurological exam, no significant risk factors for dissection, no widened mediastinum on CXR, pain not sudden onset, no ripping/tearing pain, no pain to back and other (D-dimer normal) and CHF Reason(s) CHF less likely: Positive for no significant peripheral edema, no orthopnea and no evidence of fluid overload on CXR Treatment and Re-Evaluation :: Patient was informed of results and was discharged to home. Discharge Plan Triage Chief Complaint: Chest Pain Other Complaint: Complaint ED Provider: Shelton Hendrickson Dx/Rx/DC Orders Clinical Impression: Central chest pain, Acute dyspnea, History of cancer of right breast, Pyuria Instructions: ED Chest Pain, Noncardiac, ED Dyspnea Prescriptions: No Action mv-min-vit C-Glu-Kym [id number] [Airborne (with lysine acetate)] 1 EACH tablet,chewable 1 ea PO PRN PRN (Reason: Not Specified) biotin 1 MG capsule 2 mg PO QWEEK varenicline [Chantix] 0.5 mg Tablet 0.5 mg PO BID albuterol sulfate [Ventolin HFA] 90 mcg/actuation HFA aerosol inhaler 1 - 2 puff inhalation Q4H PRN PRN (Reason: Wheezing) Qty: 1 0RF Primary Care Provider: Christiano Wooten Referrals: Christiano Wooten MD [Primary Care Provider] - 3-5 Days if not improving Disposition Disposition: Home, Self Care
[2022-05-30 08:55] LABS: Bacteria 0 SEEN /hpf (None Seen); Mucous, Urine 0 SEEN /hpf (<or=2+); Red Blood Cells-Urine 0 SEEN /hpf (0-5)
[2022-05-30 09:03] LABS: Color, Urine Yellow (Yellow); Glucose, Dipstick Normal (Normal); Ketone-Dipstick Negative (Negative); Leukocyte Esterase-Dipstick 100 /ul (Negative); Nitrite-Dipstick Negative (Negative); Occult Blood-Urine Negative /ul (Negative); Protein-Dipstick Negative (Negative); Urine Bilirubin Dipstick Negative (Negative); Urine Clarity Sl. Cloudy (Clear); Urine Urobilinogen Normal (Normal)
[2022-05-30 09:08] LABS: Absolute Lymphocyte Count 1.31 X10^3/uL (0.83-4.51); Absolute Neutrophil Count 3.4 X10^3/uL (2.0-7.7); Basophil# 0.02 X10^3/uL; Basophil% 0.4 % (0-1); Eosinophils% 3.8 % (0-5); Hematocrit 39.2 % (37-47); Hemoglobin 12.4 g/dL (12.0-15.0); Lymphocyte # 1.31 X10^3/ul (0.83-4.51); Lymphocyte % 24.8 % (19-41); Mean Corp Hgb Conc 31.6 g/dL (32-36); Mean Corpuscular Hgb 27.9 pg (27.0-32.0); Mean Corpuscular Volume 88.1 fL (81-99); Monocyte# 0.34 X10^3/uL; Monocyte% 6.4 % (0-10); NRBC Flagged by Analyzer 0 % (0-5); Neutrophil # 3.39 X10^3/uL (2.7-7.7); Neutrophil % 64.2 % (47-70); Platelet Count 172 K/mm3 (150-450); RBC Distribution Width CV 12.7 % (11.6-14.6); RBC Distribution Width SD 41.1 fl (35.1-43.9); Red Blood Count 4.45 M/mm3 (4.2-5.4); White Blood Count 5.3 K/mm3 (4.4-11.0)
[2022-05-30 09:19] LABS: Anion Gap 6 (5-15); BUN 13 mg/dL (7-18); BUN/Creat Ratio 13.2 RATIO (10-20); Calcium,Total 9.4 mg/dL (8.5-10.1); Chloride 108 mmol/L (98-107); Creatinine, Serum 0.99 mg/dL (0.55-1.02); D-Dimer Quantitative (DVT/PE) < 0.27 FEU/ug/m (0.27-0.49); EST Glomerular Filtration Rate 60 mL/min (>60); Est Glom Filt Rate - Afr Amer 73 mL/min (>60); Estimated Creatinine Clearance 54.45 ml/min; Glucose 103 mg/dL (74-106); Potassium 3.7 mmol/L (3.5-5.1); Sodium Level 139 mmol/L (136-145); Troponin-I HS (w/2H Reflex) 9 pg/mL (3.0-54.0)
[2022-05-30 09:20] LABS: Squamous Epithelial Cells - UA 0-5 SEEN /hpf (5-10); White Blood Cells 10-25 SEEN /hpf (0-5)
[2022-05-30 10:53] LABS: Reflex Troponin-HS? (from REC) Y
== END 2022-05-30 09:58 | disposition home or self-care (01) ==
PROVIDERS: Emergency Provider Emergency Medicine; PCP Internal Medicine; Visit Provider Emergency Medicine
DX: R07.89 Other chest pain (principal); J44.9 Chronic obstructive pulmonary disease, unspecified; Z87.891 Personal history of nicotine dependence; R06.00 Dyspnea, unspecified; R82.81 Pyuria; Z85.3 Personal history of malignant neoplasm of breast; Z79.899 Other long term (current) drug therapy; Z90.710 Acquired absence of both cervix and uterus; Z90.11 Acquired absence of right breast and nipple
CPT/HCPCS: 71046; 80048; 81001; 84484; 85025; 85379; 87086; 93005; 99285; A4216

== ENCOUNTER 2024-01-02 17:46 | Observation (INO) | payer OTHER, SELFPAY ==
[2024-01-02 17:47] VITALS: BP 125/71; PULSE 65; RESP 20; TEMP 37.4; O2SAT 96; BMI 24.9
--- NOTE | 2024-01-02 18:41 | CT_ITS ---
We are attempting to reach an attending provider to discuss findings. An addendum with communication details will be sent when the communication is complete. EXAM: CT ABDOMEN AND PELVIS WITH INTRAVENOUS CONTRAST CLINICAL INDICATION: lower abd pain TECHNIQUE: Helically acquired images were obtained of the abdomen and pelvis with intravenous contrast. This CT exam was performed using one or more of the following dose reduction techniques: automated exposure control, adjustment of the mA and/or kV according to patient size, and/or use of iterative reconstruction technique. CONTRAST: IV 100mL [id number] COMPARISON: 07/08/2021 FINDINGS: LOWER THORAX: Coronary artery calcifications. Interstitial thickening in the basilar lungs and mild dependent airspace disease which may be atelectasis or pneumonia. No cardiomegaly. No significant pericardial effusion. ABDOMEN: LIVER: No significant abnormality. Homogeneous. No focal mass. GALLBLADDER AND BILE DUCTS: Variable density within the gallbladder lumen suggesting small stones and/or sludge. No secondary signs of acute cholecystitis. No intra- or extrahepatic biliary ductal dilation. PANCREAS: No significant abnormality. No focal cystic or solid mass. SPLEEN: No significant abnormality. Normal size without focal cystic or solid mass. ADRENALS: No significant abnormality. No nodules. KIDNEYS AND URETERS: No significant abnormality. Normal renal size and position. No hydronephrosis. STOMACH AND BOWEL: Diverticulosis of the colon without evidence of acute diverticulitis. No stomach or bowel distention. PELVIS: APPENDIX: There is typically appendix, there is a focal low-attenuation collection measuring approximately 1.5 cm which may be an early developing periappendiceal abscess. Abnormally distended fluid-filled appendix with possible small appendicoliths and associated periappendiceal inflammation. BLADDER: No significant abnormality. REPRODUCTIVE: Status post hysterectomy. ABDOMEN and PELVIS: INTRAPERITONEAL SPACE: No significant abnormality. No ascites or other fluid collection. No free air. BONES/JOINTS: Degenerative changes in the spine. No suspicious lytic or blastic abnormality. SOFT TISSUES: Bilateral mammoplasty implants are partially visualized. No discrete abdominal or pelvic wall hernia. VASCULATURE: Atherosclerosis of the aorta. No aneurysm.. LYMPH NODES: No significant abnormality. No enlarged lymph nodes. CT/Abdomen/Pelvis W IV Cont ONLY IMPRESSION: 1. Acute appendicitis. This is possibly complicated by a small periappendiceal abscess. No free air to indicate obvious perforation. 2. Interstitial thickening in the basilar lungs and mild dependent airspace disease which may be atelectasis or pneumonia. 3. Variable density within the gallbladder lumen suggesting small stones and/or sludge. No secondary signs of acute cholecystitis. 4. Diverticulosis of the colon without evidence of acute diverticulitis. Electronically Signed: Beto Montalvo DO at 20:16 EST ,
--- NOTE | 2024-01-02 18:46 | EDS_ITS ---
HPI HPI - GI History of Present Illness Chief Complaint: Abd Pain Informant: patient Abdominal Pain/Flank Pain Onset: Today and Hours Context: Gradual Onset Timing: Continuous Location: - (Bilateral lower quadrant abdominal pain primarily suprapubic and left lower quadrant.) Current Severity: Mild Maximum Severity: Moderate Worsened by: Nothing Relieved by: Nothing Nausea/Vomiting/Emesis GI Symptom: Positive for Nausea and Vomiting Onset: Today Severity: Mild Diarrhea/Melena/Hematochezia GI Symptom: Positive for Diarrhea Onset: Today Severity: Mild Associated Symptoms Associated Symptoms: Negative for Dysuria, Frequency, Hematuria or Urgency Narrative Narrative: 63-year-old female history of COPD and prior breast cancer. Prior hysterectomy with her ovaries still in place. Said around 3 AM this morning she developed lower quadrant abdominal pain primarily suprapubic. Associated nausea and vomiting. Loose stools and subjective fever. No dysuria. No trauma. Prior similar symptoms: No Recent Illness/Hospitalization: No PFSH PFSH Medical History GERD (gastroesophageal reflux disease) COPD (chronic obstructive pulmonary disease) Breast CA Home Medications ?Medication ?Instructions ?Recorded ?Last Taken ?Type biotin 1 mg capsule 2 mg PO QWEEK 03/06/17 Unknown History mv-min-vit [id number] tammy-herb 1 ea PO PRN PRN Not Specified 03/06/17 Unknown History #124 250 mg-12.5 mg chewable tablet (Airborne (with lysine acetate)) varenicline 0.5 mg tablet 0.5 mg PO BID 07/08/21 Unknown History albuterol sulfate 90 mcg/actuation 1 - 2 puff inhalation Q4H PRN PRN 07/28/21 Unknown Rx aerosol inhaler (Ventolin HFA) Wheezing ##1 Allergy/AdvReac Type Severity Reaction Status Date / Time anastrozole (From Arimidex) Allergy Unknown Verified 01/02/24 17:46 exemestane (From Aromasin) Allergy Unknown Verified 01/02/24 17:46 letrozole Allergy Unknown Verified 01/02/24 17:46 tamoxifen Allergy Unknown Verified 01/02/24 17:46 Family History Sister Colon cancer Anemia Father Anemia Myocardial infarction Father Bowel disease Heart disease Surgical History H/O total hysterectomy Hx of mastectomy Social History Smoking Status: Former smoker quit date: 05/14/21 substance use type: does not use ROS ROS ED ROS Narrative Lower abdominal pain. Subjective fever. Nausea and vomiting. Loose stools. Constitutional Constitutional ED: Reports fever(s) and subjective ENT ENT ED: Denies ear pain Cardiovascular Cardiovascular: Denies chest pain Respiratory/Chest Respiratory/Chest: Denies cough or dyspnea Gastrointestinal Gastrointestinal: Reports abdominal pain, diarrhea, nausea and vomiting Genitourinary Genitourinary ED: Denies dysuria or hematuria Musculoskeletal Musculoskeletal: Denies arthralgias Integumentary Denies abscess Neurologic Neurologic: Denies headache(s) Psychiatric Psychiatric: Denies anxiety Endocrine Endocrinology: Denies polydipsia or polyphagia Hematologic/Lymphatic Hematologic/Lymphatic: Denies easy bleeding Allergic/Immunologic Allergic/Immunologic ED: Denies mouth swelling or tongue swelling EXAM Physical Exam Narrative Exam Narrative: 63-year-old female vital signs are stable afebrile. H EENT exam unremarkable. Neck nontender. Lungs clear. Heart regular rate and rhythm rate about 65 no murmur. Abdomen soft, nondistended. Normal bowel sounds. Tender primarily suprapubic and left lower quadrant. Mild right lower quadrant. No hernia or mass. No obstruction. No pulsatile mass. Moving all 4 extremities. Nontender no edema. She is awake and alert. No focal motor deficits. Const Vital Signs: 01/02/24 17:47 01/02/24 18:51 01/02/24 19:15 Temperature 99.3 F H 99.3 F H Temperature Source Oral Oral Pulse Rate 65 Respiratory Rate 20 H Blood Pressure 125/71 H Blood Pressure Mean 89 Pulse Ox 96 88 96 Oxygen Delivery Method Room Air Room Air Nasal Cannula Oxygen Flow Rate (L/min) 2 Positive well nourished and well developed; Negative for cachectic, contractures or unkempt General Appearance ED: well developed and NAD; Negative for unkempt, cachectic, contractures or pallor Nutritional Appearance: Negative for cachectic HEENT Reports moist mucous membranes normocephalic and atraumatic Eyes PERRL and EOMs intact bilaterally Neck no lymphadenopathy, supple and no JVD Resp normal respiratory effort and clear to auscultation bilaterally Cardio regular rhythm, S1 normal heart sound, S2 normal heart sound and no murmurs GI non-distended and no masses; Negative for non-tender Auscultation: normoactive bowel sounds Palpation: soft and tender; Negative for guarding Back/Spine no CVA tenderness General Back: Negative for CVA tenderness Cervical Spine: Negative for cervical spine tenderness Thoracic Spine / Upper Back: Negative for thoracic spinal tenderness Lumbar Spine / Lower Back: Negative for lumbar spinal tenderness Coccyx: Negative for other Extremity full ROM General Extremety ED: Negative for edema or tenderness General Extremity: Negative for edema Neuro CN's II-XII intact bilaterally and moves all extremities Sensorium / Orientation: alert, oriented to person, oriented to place and oriented to time; Negative for orientation impaired, confused or lethargic Motor Exam: strength 5/5 throughout Psych mental status grossly normal and thought process normal Appearance: Negative for unkempt Attitude: No agitated Mood & Affect: Negative for depressed, anxious or tearful Skin no wounds General Skin Exam: Negative for jaundice or pallor Lesions: no lesions Rashes: no rashes Trauma: Negative for abrasion Nails: Negative for discolored MDM MDM MDM Narrative Medical decision making narrative: 63-year-old female with 14 hours of suprapubic and lower abdominal pain started today. Differential would include diverticulitis, UTI, appendicitis versus other. CAT scan labs pending. Morphine for pain and Zofran for nausea. Repeat exam at 8:22 PM patient was instructed on her lab results and CAT scan findings. General surgeons on page. Should be started on IV Zosyn antibiotic. History & Record Review Discussion w/independent historian: Patient Additional record(s) reviewed:: Prior inpatient record, Prior outpatient record and Prior ED visit Lab Data Attestation: I reviewed the patient's lab results. Lab results narrative: CBC shows elevated white count of 15.9. H&H 11.5 and 36. Platelets 243. Electrolytes show a gap of 7. Normal BUN and creatinine. Glucose 118. Liver enzymes normal. Lipase normal at 47. CAT scan shows acute appendicitis possibly very early small perforation. Labs: Laboratory Results - last 24 hr 01/02/24 18:00 WBC 15.9 H RBC 4.15 L Hgb 11.5 L Hct 36.3 L MCV 87.5 MCH 27.7 MCHC 31.7 L RDW Std Deviation 43.3 RDW Coeff of Rylee 13.4 Plt Count 243 MPV 9.6 Immature Gran % (Auto) 0.400 Neut % (Auto) 90.5 H Lymph % (Auto) 4.5 L [place] % (Auto) 4.5 Eos % (Auto) 0.0 Baso % (Auto) 0.1 Absolute Neuts (auto) 14.3 H Absolute Lymphs (auto) 0.72 L Nucleated RBC % 0 Sodium 140 Potassium 3.7 Chloride 108 H Carbon Dioxide 25.0 Anion Gap 7 BUN 16 Creatinine 0.80 Estim Creat Clear Calc 65.63 Est GFR (MDRD) Af Amer 93 Est GFR (MDRD) Non-Af 77 BUN/Creatinine Ratio 20.1 H Glucose 118 H Calcium 9.5 Total Bilirubin 0.70 AST 29 ALT 28 Alkaline Phosphatase 65 Total Protein 7.1 Albumin 4.0 Globulin 3.1 Albumin/Globulin Ratio 1.3 Lipase 47 Radiography Diagnostic Testing: Clinical Impression(s) from Imaging Studies Abdomen/Pelvis CT 01/02/24 18:41 IMPRESSION: 1. Acute appendicitis. This is possibly complicated by a small periappendiceal abscess. No free air to indicate obvious perforation. 2. Interstitial thickening in the basilar lungs and mild dependent airspace disease which may be atelectasis or pneumonia. 3. Variable density within the gallbladder lumen suggesting small stones and/or sludge. No secondary signs of acute cholecystitis. 4. Diverticulosis of the colon without evidence of acute diverticulitis. Electronically Signed: Beto Montalvo DO at 20:16 EST , Discharge Plan Triage Chief Complaint: Abd Pain ED Provider: Martell Zhang Dx/Rx/DC Orders Clinical Impression: Abdominal pain, Acute appendicitis, Leukocytosis Prescriptions: No Action mv-min-vit C-[id number] [Airborne (with lysine acetate)] 1 EACH tablet,chewable 1 ea PO PRN PRN (Reason: Not Specified) biotin 1 MG capsule 2 mg PO QWEEK varenicline [Chantix] 0.5 mg Tablet 0.5 mg PO BID albuterol sulfate [Ventolin HFA] 90 mcg/actuation HFA aerosol inhaler 1 - 2 puff inhalation Q4H PRN PRN (Reason: Wheezing) Qty: 1 0RF Primary Care Provider: Christiano Wooten Referrals: Christiano Wooten MD [Primary Care Provider] - Print Language: Tamazight Disposition Disposition: Acute Care Hospital [facility]
[2024-01-02] MEDS: Ondansetron 4 MG/2 ML Vial IV (18:47)
[2024-01-02] MEDS: Morphine 4 MG/ML Syringe IV ×2 (18:47→20:35)
[2024-01-02 18:51] VITALS: TEMP 37.4; O2SAT 88
[2024-01-02 18:51] LABS: Absolute Lymphocyte Count 0.72 X10^3/uL (0.83-4.51); Absolute Neutrophil Count 14.3 X10^3/uL (2.0-7.7); Basophil# 0.02 X10^3/uL; Basophil% 0.1 % (0-1); Hematocrit 36.3 % (37-47); Hemoglobin 11.5 g/dL (12.0-15.0); Lymphocyte # 0.72 X10^3/ul (0.83-4.51); Lymphocyte % 4.5 % (19-41); Mean Corp Hgb Conc 31.7 g/dL (32-36); Mean Corpuscular Hgb 27.7 pg (27.0-32.0); Mean Corpuscular Volume 87.5 fL (81-99); Mean Platelet Vol. 9.6 fl (6.2-12.0); Monocyte# 0.72 X10^3/uL; Monocyte% 4.5 % (0-10); NRBC Flagged by Analyzer 0 % (0-5); Neutrophil # 14.34 X10^3/uL (2.7-7.7); Neutrophil % 90.5 % (47-70); Platelet Count 243 K/mm3 (150-450); RBC Distribution Width CV 13.4 % (11.6-14.6); RBC Distribution Width SD 43.3 fl (35.1-43.9); Red Blood Count 4.15 M/mm3 (4.2-5.4); White Blood Count 15.9 K/mm3 (4.4-11.0)
[2024-01-02 19:10] LABS: ALB/GLOB Ratio 1.3 RATIO (0.9-2.4); AST(SGOT) 29 U/L (15-37); Alanine Aminotransfer ALT/SGPT 28 U/L (13-56); Alkaline Phosphatase 65 U/L (45-117); Anion Gap 7 (5-15); BUN 16 mg/dL (7-18); BUN/Creat Ratio 20.1 RATIO (10-20); Calcium,Total 9.5 mg/dL (8.5-10.1); Chloride 108 mmol/L (98-107); EST Glomerular Filtration Rate 77 mL/min (>60); Est Glom Filt Rate - Afr Amer 93 mL/min (>60); Estimated Creatinine Clearance 65.63 ml/min; Globulin 3.1 g/dL (2.2-4.2); Glucose 118 mg/dL (74-106); Lipase 47 U/L (13-75); Potassium 3.7 mmol/L (3.5-5.1); Protein, Total 7.1 g/dL (6.4-8.2); Sodium Level 140 mmol/L (136-145)
[2024-01-02 19:15] VITALS: O2SAT 96
[2024-01-02 21:01] VITALS: PULSE 68; RESP 18; TEMP 36.9; O2SAT 92; BMI 24.9
[2024-01-02 21:10] LABS: Color, Urine Yellow (Yellow); Glucose, Dipstick Normal (Normal); Leukocyte Esterase-Dipstick 25 /ul (Negative); Nitrite-Dipstick Negative (Negative); Occult Blood-Urine Negative /ul (Negative); Protein-Dipstick 30 mg/dl (Negative); Urine Bilirubin Dipstick Negative (Negative); Urine Clarity Clear (Clear); Urine Urobilinogen Normal (Normal)
[2024-01-02 21:30] LABS: Ketone-Dipstick 150 mg/dl (Negative)
[2024-01-02 21:36] LABS: Squamous Epithelial Cells - UA 10-25 SEEN /hpf (5-10)
[2024-01-02 21:38] LABS: Bacteria RARE /hpf (None Seen); Mucous, Urine 2+ /hpf (<or=2+)
[2024-01-02 21:39] LABS: Red Blood Cells-Urine 0-5 SEEN /hpf (0-5); White Blood Cells 0-5 SEEN /hpf (0-5)
[2024-01-02] MEDS: Piperacil/Tazobactam 4.5 GM in 0.9% Normal Saline (100mL MB+) 100 ML IV (21:40)
--- NOTE | 2024-01-02 21:50 | HP.PCM_ITS ---
HPI - General General Date of Admission: 01/02/24 Date of Service: 01/02/24 Chief Complaint: Progressive acute onset lower abdominal pain HPI Narrative CELINA FRANKLIN, is a 63 F who presents to [facility] with her daughter after acute onset right lower quadrant abdominal pain that woke her out of sleep approximately 3 AM this morning. Patient describes the pain as progressive and associated with nausea and vomiting. She also reports that she has had some normal bowel movements today. Given the nausea and vomiting as well as a general unwell feeling she has remained free of any p.o. intake. She denies any previous experience of similar pain. She does note that she has been dealing with some ongoing left knee and left groin pain but both the character and the laterality for her acute onset pain are distinct from these other issues. Patient's ER workup is notable for CBC with leukocytosis of 15.[address] imaging shows evidence of acute appendicitis and possible periappendiceal abscess. Patient has a past medical history of COPD with remote history of tobacco use but no requirement for home oxygen. Additionally there is a history of breast cancer requiring mastectomy and reconstruction. She had past surgical history of a transvaginal hysterectomy performed remotely for heavy menstrual bleeding. 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 [facility] Medical History GERD (gastroesophageal reflux disease) COPD (chronic obstructive pulmonary disease) Breast CA Home Medications ?Medication ?Instructions ?Recorded ?Last Taken ?Type naproxen 500 mg tablet 500 mg PO BID PRN PRN pain 01/02/24 Unknown History pregabalin 75 mg capsule 75 mg PO BID 01/02/24 Unknown History Allergy/AdvReac Type Severity Reaction Status Date / Time anastrozole (From Arimidex) Allergy Unknown Verified 01/02/24 17:46 exemestane (From Aromasin) Allergy Unknown Verified 01/02/24 17:46 letrozole Allergy Unknown Verified 01/02/24 17:46 tamoxifen Allergy Unknown Verified 01/02/24 17:46 Family History Sister Colon cancer Anemia Father Anemia Myocardial infarction Father Bowel disease Heart disease Surgical History H/O total hysterectomy Hx of mastectomy Social History Smoking Status: Former smoker quit date: 05/14/21 substance use type: does not use Vital Signs Vital Signs Vital Signs: 01/02/24 17:47 01/02/24 18:51 01/02/24 19:15 Temperature 99.3 F H 99.3 F H Temperature Source Oral Oral Pulse Rate 65 Respiratory Rate 20 H Blood Pressure 125/71 H Blood Pressure Mean 89 Pulse Ox 96 88 96 Oxygen Delivery Method Room Air Room Air Nasal Cannula Oxygen Flow Rate (L/min) 2 01/02/24 21:01 Temperature 98.5 F Temperature Source Oral Pulse Rate 68 Respiratory Rate 18 Blood Pressure Blood Pressure Mean Pulse Ox 92 Oxygen Delivery Method Room Air Oxygen Flow Rate (L/min) Weight Weight: 154 lb 5.177 oz Body Mass Index (BMI) 24.9 Physical Exam Const alert and oriented x3 Constitutional Narrative: Mild distress from both abdominal pain as well as a headache General Appearance: cooperative Resp normal respiratory effort GI GI Narrative: Nondistended, no visible scars, soft, tender to palpation over McBurney's point and slightly inferiorly. Negative negative Rovsing and obturator signs. Mildly positive psoas sign. Results Lab / Micro Data 01/02/24 18:00 01/02/24 18:00 Labs: Laboratory Results - last 24 hr 01/02/24 18:00: WBC 15.9 H, RBC 4.15 L, Hgb 11.5 L, Hct 36.3 L, MCV 87.5, MCH 27.7, MCHC 31.7 L, RDW Std Deviation 43.3, RDW Coeff of Rylee 13.4, Plt Count 243, MPV 9.6, Immature Gran % (Auto) 0.400, Neut % (Auto) 90.5 H, Lymph % (Auto) 4.5 L, [place] % (Auto) 4.5, Eos % (Auto) 0.0, Baso % (Auto) 0.1, Absolute Neuts (auto) 14.3 H, Absolute Lymphs (auto) 0.72 L, Nucleated RBC % 0, Sodium 140, Potassium 3.7, Chloride 108 H, Carbon Dioxide 25.0, Anion Gap 7, BUN 16, Creatinine 0.80, Estim Creat Clear Calc 65.63, Est GFR (MDRD) Af Amer 93, Est GFR (MDRD) Non-Af 77, BUN/Creatinine Ratio 20.1 H, Glucose 118 H, Calcium 9.5, Total Bilirubin 0.70, AST 29, ALT 28, Alkaline Phosphatase 65, Total Protein 7.1, Albumin 4.0, Globulin 3.1, Albumin/Globulin Ratio 1.3, Lipase 47 01/02/24 20:55: Urine Color Yellow, Urine Clarity Clear, Urine pH 5.0, Ur Specific [place] 1.020, Urine Protein 30 H, Urine Glucose (UA) Normal, Urine Ketones 150 A*, Urine Occult Blood Negative, Urine Nitrite Negative, Urine Bilirubin Negative, Urine Urobilinogen Normal, Ur Leukocyte Esterase 25 H, Urine RBC 0-5 SEEN, Urine WBC 0-5 SEEN, Ur Squamous Epith Cells 10-25 SEEN, Urine Bacteria RARE, Urine Mucus 2+ Imaging Radiology Impression Abdomen/Pelvis CT 01/02/24 18:41 IMPRESSION: 1. Acute appendicitis. This is possibly complicated by a small periappendiceal abscess. No free air to indicate obvious perforation. 2. Interstitial thickening in the basilar lungs and mild dependent airspace disease which may be atelectasis or pneumonia. 3. Variable density within the gallbladder lumen suggesting small stones and/or sludge. No secondary signs of acute cholecystitis. 4. Diverticulosis of the colon without evidence of acute diverticulitis. Electronically Signed: Beto Montalvo DO at 20:16 EST , ADDENDUM: 01/02/242025 IMPRESSION: 1. Acute appendicitis. This is possibly complicated by a small periappendiceal abscess. No free air to indicate obvious perforation. 2. Interstitial thickening in the basilar lungs and mild dependent airspace disease which may be atelectasis or pneumonia. 3. Variable density within the gallbladder lumen suggesting small stones and/or sludge. No secondary signs of acute cholecystitis. 4. Diverticulosis of the colon without evidence of acute diverticulitis. N.B. : The above Results were Read Back by Beto Montalvo DO to Martell Zhang MD, and understanding confirmed on 01/02/2024 20:19:26 (ET). Electronically Signed: Beto Montalvo DO at 20:16 EST , Assessment & Plan Assessment/Plan (1) Acute appendicitis: QUALIFIERS: Acute appendicitis type: with localized peritonitis PLAN: Patient is 63-year-old female presenting with signs and symptoms of acute appendicitis. Onset of symptoms was approximately 19 hours ago. With this relatively short time since onset of symptoms I would question the likelihood of her even having sufficient time to develop a periappendiceal abscess, however, that does remain on the official read for patient's CT imaging performed earlier during her ER workup. I discussed with patient and her daughters?were present at bedside?the natural history of appendicitis and its treatment options. Specifically, including discussion around antibiotics?only management of acute appendicitis but shared that those patients who present with evidence of an appendicolith do not have the same prognosis as those without. Based on this and the general consensus that surgical appendectomy remains the standard of care in this country I have offered surgical appendectomy to patient. I went on to describe details of a laparoscopic appendectomy including the relevant anatomy. Patient and her daughters had a number of questions related to both the duration of the procedure as well as postoperative recovery expectations. After answering these questions I then notified laborer hide house and anesthesia with our intent to proceed emergently for laparoscopic appendectomy. Empiric antibiotic therapy is pending per emergency medicine. Will plan to proceed to the operating room once operating room team arise for procedure as discussed. Postoperatively patient will be admitted to the hospital for an observational stay given the late hour and pending any operative findings. Ra Ballard MD General Surgery Endocrine Surgery Pager: [facility] [address] [place] [address] [address] [place] [address] Office: [phone]
--- NOTE | 2024-01-02 22:40 | PCM.PRE.AN2 ---
ASA Classification* ASA Classification ASA Classification: 3 and E Assessment & Plan Anesthesia* Anesthesia Assessment Anesthesia Assessment: Discussed sedation and/or anesthesia options, risks, benefits, and alternatives with patient/parents/legal guardian/POA. Questions invited. The patient/parents/legal guardian/POA seems to understand and agrees to proceed with anesthesia plan. Reviewed the physical assessment, medical history, allergy history and patient home medications list prior to surgery/procedure/anesthetic and documented any changes. Performed airway and anesthesia risk assessments. Anesthesia Type Anesthesia Type: General Anesthesia Focused Assessment* Temperature: 98.5 F Pulse Rate: 68 Blood Pressure: 125/71 Respiratory Rate: 18 Pulse Ox: 92 Airway Assessment Mouth opens: >3 cm Mallampati Score: II Focused Labs Anesthesia Preop lab: CBC WBC 15.9 K/mm3 (4.4-11.0) H 01/02/24 18:00 RBC 4.15 M/mm3 (4.2-5.4) L 01/02/24 18:00 Hgb 11.5 g/dL (12.0-15.0) L 01/02/24 18:00 Hct 36.3 % (37-47) L 01/02/24 18:00 Plt Count 243 K/mm3 (150-450) 01/02/24 18:00 CHEMISTRY Potassium 3.7 mmol/L (3.5-5.1) 01/02/24 18:00 Sodium 140 mmol/L (136-145) 01/02/24 18:00 BUN 16 mg/dL (7-18) 01/02/24 18:00 Creatinine 0.80 mg/dL (0.55-1.02) 01/02/24 18:00 Glucose 118 mg/dL (74-106) H 01/02/24 18:00 COAG Pre-Assessment Diagnosis/Proposed Procedure Planned Operative Procedure(s): Laproscopic Appendectomy Anesthesia History 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 When Was Last Pacemaker Check QUESTION #4 FULL TEXT: You/Your Family Experience fever (hyperthermia) with Anesthesia Last Oral Intake Last Oral intake: Last Oral Intake NPO since 00:00 01/02/24 21:01 Meds taken in AM with sips of water? Meds patient instructed to take am of surgery PONV PONV - big data software engineer: PONV - big data software engineer Female HX of Motion Sickness HX of N/V After Surgery Non-Smoker Duration of Surgery greater than 60 minutes Number of Risk Factors PONV Score Height & Weight Height & Weight: Anesthesia: Height & Weight Height 5 ft 6 in 01/02/24 21:01 Weight: 70 kg 01/02/24 21:01 Body Mass Index (BMI) 24.9 01/02/24 21:01 Respiratory Assessment Respiratory Assessment - big data software engineer: Respiratory Tract Infection Hx - big data software engineer Hx Respiratory Tract Infection No 01/02/24 21:01 STOP Sleep Apnea STOP Sleep Apnea - big data software engineer: STOP Sleep Apnea - big data software engineer Hx Hypertension No 01/02/24 21:01 Hx Sleep Apnea No 01/02/24 21:01 CPAP BIPAP Do you snore loudly (louder No 01/02/24 21:01 than talking or can be heard Do you often feel tired/ No 01/02/24 21:01 fatigued/ sleepy during daytime? Has anyone observed you stop No 01/02/24 21:01 breathing during sleep? STOP Results Negative 01/02/24 21:01 QUESTION #5 FULL TEXT : Do you snore loudly (louder than talking or can be heard through closed doors)? 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 Specify any problems Hx of Preganancy in last 3 Months Nurse Filling Out Transfusion & Questions: Date: Time: Patient unable to answer at this time (ie. confused, unrespo /Reproduction History /Reproductive History - big data software engineer: /Reproductive Hx- big data software engineer Hx Now No 01/02/24 21:01 Gestational Age (in weeks): EDC: Hx Hx Para Hx Section SAB No 01/02/24 21:01 [facility] Medical History GERD (gastroesophageal reflux disease) COPD (chronic obstructive pulmonary disease) Breast CA Home Medications ?Medication ?Instructions ?Recorded ?Last Taken ?Type naproxen 500 mg tablet 500 mg PO BID PRN PRN pain 01/02/24 Unknown History pregabalin 75 mg capsule 75 mg PO BID pain 01/02/24 Unknown History Allergy/AdvReac Type Severity Reaction Status Date / Time anastrozole (From Arimidex) Allergy Unknown Verified 01/02/24 17:46 exemestane (From Aromasin) Allergy Unknown Verified 01/02/24 17:46 letrozole Allergy Unknown Verified 01/02/24 17:46 tamoxifen Allergy Unknown Verified 01/02/24 17:46 Family History Sister Colon cancer Anemia Father Anemia Myocardial infarction Father Bowel disease Heart disease Surgical History H/O total hysterectomy Hx of mastectomy Social History Smoking Status: Former smoker quit date: 05/14/21 substance use type: does not use Review of Systems (Anesthesia) ROS Narrative System reviewed and no additional complaints, except as documented.
[2024-01-02] MEDS: Bupiv/Epi 0.25% 30 ML Vial (23:49)
[2024-01-02 23:50] VITALS: BP 125/71; PULSE 68; RESP 18; TEMP 36.9; O2SAT 92
--- NOTE | 2024-01-02 23:50 | APP_PTH ---
PATIENT: CELINA FRANKLIN LOC: [facility]3 U#:[id number] AGE/SX: 63/F ROOM: NJ315 RE01/03/[address]: Dr. Ra Ballard MD : 1960 BED: 1 DIS: 01/03/2024 SPEC #: [id number] RECD: 01/03/24 09:21 STATUS: ALFREDA STERLING #: [id number] PAOLA: 01/02/24 23:[address]: Ra Ballard DEPT: SURGICAL PATHOLOGY RECD BY: Rashad Solis ENTERED: 01/03/24 11:24 SP TYPE: APPENDIX OTHR DR: Dr. Christiano Wooten MD Tissues: Appendix, NOS Procedures: Surgery Specimen Level III HEADER OPERATION: Laparoscopic appendectomy PRE-OP DIAGNOSIS: Acute appendicitis TISSUE SUBMITTED: Appendix MICROSCOPIC DIAGNOSIS Appendix, appendectomy: Acute appendicitis and periappendicitis. 01/04/2024 MICROSCOPIC DESCRIPTION Slides are reviewed. GROSS DESCRIPTION Received in fixative is one container labeled with the patient's name and designated appendix. The specimen consists of letter L shaped appendix measuring 9.0 cm in length and up to 1.0 cm in diameter. The attached periappendiceal adipose tissue measures up to 1.5 cm in width. The serosa is congested. No obvious perforation is identified. The lumen contains hemorrhagic material mixed with fecal material. No fecalith is identified. [employer] sections are submitted in one cassette. / SJ:mr 01/03/2024 TC:2 CPT: 08728
--- NOTE | 2024-01-02 23:52 | PCM.OPRPT ---
Operative Report (Standard) Operative Information Surgery/Procedure Performed: Laparoscopic appendectomy Surgeon: Ra Ballard Date of Procedure: 01/02/24 Procedure Start Time: 23:07 Procedure Stop Time: 23:59 Pre-Operative Diagnosis: Acute appendicitis Post-Operative Diagnosis: Acute uncomplicated appendicitis Select all DRAINS/GRAFTS/IMPLANTS that apply: None Type of Anesthesia: General/Supplemental Estimated Blood Loss: 5 Specimen collected: Yes Description of specimen(s) removed: Appendix Description of surgery: After appropriate identification in the preoperative holding area, the patient was brought to the operating room and placed supine on the operating room table. Antibiotics had been preoperatively administered. Patient was then induced with general endotracheal anesthetic. The abdomen was prepped and draped in usual sterile fashion. Formal timeout was conducted to confirm both the patient and the procedure. A supraumbilical incision was made and carried down to the level of the fascia which was sharply opened. After opening the peritoneum in like fashion a finger sweep was made to confirm position, and a balloon trocar was placed and pneumoperitoneum was established to 15 mmHg. Patient was positioned in Trendelenburg with the left side down. Two additional 5 mm trocars were placed in the left lower quadrant and suprapubic positions. The peritoneum was inspected and there were no signs of inadvertent injury from this [place] entry. The appendix was visualized with a mild to moderate degree of acute inflammation and dilatation. There is some periappendiceal exudate towards the tip but no evidence of perforation. Using blunt laparoscopic dissection, a window was made in the mesoappendix adjacent to the appendiceal base. The mesoappendix was carefully divided with application of a laparoscopic harmonic as I worked to separate it from the adherent small bowel mesentery to the terminal ileum. During this division I kept any transection of tissue adjacent to the body of the appendix to try to minimize the risk of compromising the blood supply to the small bowel. Then the base of the appendix was sealed and amputated with the use of an Endo EL stapler. The appendix was placed in an Endo Catch bag. The staple line was inspected for hemostasis and largely felt to be intact and a Ray-Donis sponge was placed into the peritoneal cavity and manual pressure was applied to the staple line to confirm hemostasis. After hemostasis was confirmed the appendix was removed from the umbilical port site. Pneumoperitoneum was then evacuated and the supraumbilical port site fascia was closed with #1 Vicryl in a [id number] fashion. The port sites were infiltrated with 20 mL local anesthetic. The skin of each port site was closed with 4-0 Monocryl in a subcuticular fashion. Steri-Strips and OpSite dressings were applied. Patient tolerated procedure well without any apparent complications. They were awoken from general anesthetic without issue and transferred to post anesthesia care unit for ongoing recovery. Surgical Findings: ? Acutely inflamed and dilated appendix with some adjacent. Appendiceal exudate but no evidence of perforation or purulence. Appendix base was partially covered by both the sail of the appendix and the small bowel mesentery of the terminal ileum. Architectural Renderer accounting administrative assistant: Yes Concrete Mixing Truck Driver: Radha Elias Tasks completed by assisted sales representative: Opening & closing and Other (Operating laparoscopic camera) Complications Complications: No Admit VTE Documentation VTE Mechan Device Prophylaxis: SCD's Procedures Digestive 40xxx-49xxx: 38276 Laparoscopy appendectomy
[2024-01-03] VITALS (9 sets, daily range): BP systolic 101–145; BP diastolic 54–81; PULSE 53–86; RESP 14–18; TEMP 36.6–37.2; O2SAT 93–100; BMI 24.9
--- NOTE | 2024-01-03 00:19 | PCM.POST.ANE ---
Anesthesia: Postop Eval I Current Vital Signs Temperature: 98.4 F Pulse Rate: 84 Blood Pressure: 119/74 Respiratory Rate: 17 Pulse Ox: 100 Assessment Airway patent: Yes Spontaneous unlabored respirations: Yes nausea: No Vomiting: No Anesthesia Complication: No Fluid Hydration Crystalloid volume administer (ml): 400 Total IV fluid infused: 400 Progress Note Anesthesia document: Postop Eval 1 completed: Yes
--- NOTE | 2024-01-03 00:20 | POSTOPAN2_ITS ---
Anesthesia Postop Eval I Sum Postop Eval Completion status Anesthesia document: Postop Eval 1 completed: Yes Anesthesia Postop Eval I Summary Anesthesia Postop Eval I Summary: Anesthesia Postop Eval I: Assessment Summary Airway patent Yes 01/03/24 00:19 ENTERPRISE PROJECT [email or web address] Spontaneous unlabored Yes 01/03/24 00:19 ENTERPRISE PROJECT [email or web address] respirations Mental status nausea No 01/03/24 00:19 ENTERPRISE PROJECT MANAGER.[email or web address] Vomiting No 01/03/24 00:19 ENTERPRISE PROJECT [email or web address] Anesthesia Postop Eval I: Fluid Summary Crystalloid volume administer 400 01/03/24 00:19 ENTERPRISE PROJECT [email or web address] (ml) Colloids volume administered ( ml) Blood Product volume administered (ml) Total IV fluid infused 400 01/03/24 00:19 ENTERPRISE PROJECT MANAGER.[email or web address] Anesthesia Postop Eval I: Summary Notes Anesthesia Complication No 01/03/24 00:19 ENTERPRISE PROJECT [email or web address] Anesthesia Complication Comment: Post-operative progress note Anesthesia: Postop Eval II Evaluation Mental status: Awake Pain Level: 0 nausea: No Vomiting: No
--- NOTE | 2024-01-03 00:20 | PCM.POSTANE2 ---
Anesthesia Postop Eval I Sum Postop Eval Completion status Anesthesia document: Postop Eval 1 completed: Yes Anesthesia Postop Eval I Summary Anesthesia Postop Eval I Summary: Anesthesia Postop Eval I: Assessment Summary Airway patent Yes 01/03/24 00:19 MARKETING RESEARCH [email or web address] Spontaneous unlabored Yes 01/03/24 00:19 MARKETING RESEARCH [email or web address] respirations Mental status nausea No 01/03/24 00:19 MARKETING RESEARCH [email or web address] Vomiting No 01/03/24 00:19 MARKETING RESEARCH [email or web address] Anesthesia Postop Eval I: Fluid Summary Crystalloid volume administer 400 01/03/24 00:19 MARKETING RESEARCH [email or web address] (ml) Colloids volume administered ( ml) Blood Product volume administered (ml) Total IV fluid infused 400 01/03/24 00:19 MARKETING RESEARCH [email or web address].[email or web address] Anesthesia Postop Eval I: Summary Notes Anesthesia Complication No 01/03/24 00:19 MARKETING RESEARCH [email or web address] Anesthesia Complication Comment: Post-operative progress note Anesthesia: Postop Eval II Evaluation Mental status: Awake Pain Level: 0 nausea: No Vomiting: No
[2024-01-03] MEDS: Ibuprofen 400 MG Tablet PO ×3 (00:58→12:43)
[2024-01-03] MEDS: oxyCODONE 5 MG Tablet PO ×3 (01:14→15:48)
--- NOTE | 2024-01-03 08:01 | PCM.PN.SRG ---
Subjective Subjective Patient evaluated resting comfortably in bed. Patient noting a moderate amount of pain in the right lower quadrant. She denies any nausea, vomiting, fever. She is tolerating clear liquids. Objective Data Objective Data Vital Signs: Vital Signs Temp Pulse Resp BP Pulse Ox O2 Del Method O2 Flow Rate 98.5 F 57 L 14 110/65 98 Nasal Cannula 2 01/03/24 04:43 01/03/24 04:43 01/03/24 04:43 01/03/24 04:43 01/03/24 04:43 01/03/24 04:43 01/03/24 04:43 Oxygen Flow Rate (L/min) 2 Oxygen Delivery Method Nasal Cannula Weight: 154 lb 5.177 oz Body Mass Index (BMI) 24.9 Intake & Output: Intake and Output for Last 24 Hours 01/01/24 01/02/24 01/03/24 23:59 23:59 23:59 Intake Total 100 / 100 300 / 300 Balance 100 / 100 300 / 300 Lab / Micro Data 01/03/24 08:23 01/02/24 18:00 Labs: Laboratory Results - last 24 hr 01/02/24 18:00: WBC 15.9 H, RBC 4.15 L, Hgb 11.5 L, Hct 36.3 L, MCV 87.5, MCH 27.7, MCHC 31.7 L, RDW Std Deviation 43.3, RDW Coeff of Rylee 13.4, Plt Count 243, MPV 9.6, Immature Gran % (Auto) 0.400, Neut % (Auto) 90.5 H, Lymph % (Auto) 4.5 L, [place] % (Auto) 4.5, Eos % (Auto) 0.0, Baso % (Auto) 0.1, Absolute Neuts (auto) 14.3 H, Absolute Lymphs (auto) 0.72 L, Nucleated RBC % 0, Sodium 140, Potassium 3.7, Chloride 108 H, Carbon Dioxide 25.0, Anion Gap 7, BUN 16, Creatinine 0.80, Estim Creat Clear Calc 65.63, Est GFR (MDRD) Af Amer 93, Est GFR (MDRD) Non-Af 77, BUN/Creatinine Ratio 20.1 H, Glucose 118 H, Calcium 9.5, Total Bilirubin 0.70, AST 29, ALT 28, Alkaline Phosphatase 65, Total Protein 7.1, Albumin 4.0, Globulin 3.1, Albumin/Globulin Ratio 1.3, Lipase 47 01/02/24 20:55: Urine Color Yellow, Urine Clarity Clear, Urine pH 5.0, Ur Specific [place] 1.020, Urine Protein 30 H, Urine Glucose (UA) Normal, Urine Ketones 150 A*, Urine Occult Blood Negative, Urine Nitrite Negative, Urine Bilirubin Negative, Urine Urobilinogen Normal, Ur Leukocyte Esterase 25 H, Urine RBC 0-5 SEEN, Urine WBC 0-5 SEEN, Ur Squamous Epith Cells 10-25 SEEN, Urine Bacteria RARE, Urine Mucus 2+ Radiography Diagnostic Testing: Radiology Impression Abdomen/Pelvis CT 01/02/24 18:41 IMPRESSION: 1. Acute appendicitis. This is possibly complicated by a small periappendiceal abscess. No free air to indicate obvious perforation. 2. Interstitial thickening in the basilar lungs and mild dependent airspace disease which may be atelectasis or pneumonia. 3. Variable density within the gallbladder lumen suggesting small stones and/or sludge. No secondary signs of acute cholecystitis. 4. Diverticulosis of the colon without evidence of acute diverticulitis. Electronically Signed: Beto Montalvo DO at 20:16 EST , ADDENDUM: 01/02/242025 IMPRESSION: 1. Acute appendicitis. This is possibly complicated by a small periappendiceal abscess. No free air to indicate obvious perforation. 2. Interstitial thickening in the basilar lungs and mild dependent airspace disease which may be atelectasis or pneumonia. 3. Variable density within the gallbladder lumen suggesting small stones and/or sludge. No secondary signs of acute cholecystitis. 4. Diverticulosis of the colon without evidence of acute diverticulitis. N.B. : The above Results were Read Back by Beto Montalvo DO to Martell Zhang MD, and understanding confirmed on 01/02/2024 20:19:26 (ET). Electronically Signed: Beto Montalvo DO at 20:16 EST , Physical Exam GI GI Narrative: Abdomen- distended, moderate amount of tenderness throughout the abdomen. Hypoactive bowel sounds. Assessment & Plan Assessment/Plan (1) Acute appendicitis: QUALIFIERS: Acute appendicitis type: with localized peritonitis (2) Leukocytosis: PLAN: Plan I am following this patient in conjunction with Dr. Ballard. He has independently evaluated this patient. Labs obtained. CBC reviewed. Plan to increase diet pending chemistry panel Encourage ambulation and sitting in the chair We will continue to monitor this patient Charges/Coding Visit Charges Inpatient E&M: 16102 Subs Hosp L1 (post-op)
[2024-01-03] MEDS: Acetaminophen 500 MG Tablet PO ×2 (08:34→15:47)
[2024-01-03 08:39] LABS: Absolute Lymphocyte Count 1.35 X10^3/uL (0.83-4.51); Absolute Neutrophil Count 11.4 X10^3/uL (2.0-7.7); Basophil# 0.02 X10^3/uL; Basophil% 0.1 % (0-1); Eosinophil# 0.02 X10^3/uL; Eosinophils% 0.1 % (0-5); Hematocrit 32.2 % (37-47); Lymphocyte # 1.35 X10^3/ul (0.83-4.51); Mean Corp Hgb Conc 31.1 g/dL (32-36); Mean Corpuscular Hgb 27.9 pg (27.0-32.0); Mean Corpuscular Volume 89.9 fL (81-99); Mean Platelet Vol. 9.6 fl (6.2-12.0); Monocyte# 0.65 X10^3/uL; Monocyte% 4.8 % (0-10); NRBC Flagged by Analyzer 0 % (0-5); Neutrophil # 11.35 X10^3/uL (2.7-7.7); Neutrophil % 84.6 % (47-70); Platelet Count 168 K/mm3 (150-450); RBC Distribution Width CV 13.8 % (11.6-14.6); RBC Distribution Width SD 45.2 fl (35.1-43.9); Red Blood Count 3.58 M/mm3 (4.2-5.4); White Blood Count 13.5 K/mm3 (4.4-11.0)
[2024-01-03 09:55] LABS: Anion Gap 4 (5-15); BUN 15 mg/dL (7-18); Calcium,Total 8.5 mg/dL (8.5-10.1); Chloride 111 mmol/L (98-107); Creatinine, Serum 0.79 mg/dL (0.55-1.02); EST Glomerular Filtration Rate 78 mL/min (>60); Est Glom Filt Rate - Afr Amer 94 mL/min (>60); Estimated Creatinine Clearance 65.63 ml/min; Glucose 99 mg/dL (74-106); Potassium 3.6 mmol/L (3.5-5.1); Sodium Level 140 mmol/L (136-145)
--- NOTE | 2024-01-03 14:08 | DCINST_ITS ---
Discharge Instructions Diet Discharge Diet: Light diet - advance as tolerated Activity Discharge Activity: May Not Drive (3-5 days or while taking narcotic pain medications) Lifting Restrictions: 10 pounds for 2 weeks. No strenuous activity for 4 weeks Dressing / Incision Call your doctor if your incision/area has: Continuous Slow Oozing, Sudden Increased Bleeding, Increased Pain/ Swelling, Increased Redness, Foul Smelling Discharge and Swelling at the incision site Call your doctor if you observe: Fever of 101 or Higher Suture Line Care: Avoid Pulling/Pushing and Avoid Pinching/Bending Remove Dressing in: 3 days Cleanse incision/area with: Soap & Water Follow Up Care Please Follow Up With: Tash Marina PA-C When: Please call [phone], option #2 to schedule a 2 week follow-up Test Results: Test results from this visit will be discussed in further detail at your follow- up appointment, if applicable. Discharge Plan Admission Admit Date/Time: 01/03/24 00:00 Primary Reason for Your Visit: Acute appendicitis Attending Provider: Ra Ballard Primary Care Provider: Christiano Wooten Instructions Additional Instructions / Restrictions: Appendectomy Diet ? Start light with soups and soft bland foods. You may advance diet as tolerated. Activity ? You may drive in 3-5 days but not while taking narcotic pain medication. ? I encourage walking. You may go up steps, one at a time. ? Do not swim or use hot tubs for 2 weeks. ? For comfort, you may use warm compresses or ice as needed for 15-20 minutes at a time. Lifting ? You may lift up to 10 pounds for the 2 weeks. No strenuous activity for 4 weeks. Dressings/Incision ? You may shower OVER your plastic dressings ? Do NOT tub bathe for 1 week ? Leave plastic dressings on for 3 days. ? When plastic dressings are removed, you will find steri-strips. It is okay to continue showering with them in place, pat them dry. ? You may remove steri-strips after 1 week. We recommend getting them soaking wet for easier removal. Medications ? Anesthesia used during surgery and pain medications may cause constipation. I recommend initiating on the day of surgery a fiber supplement like, Metamucil, Citrucel, FiberCon, Benefiber, or a generic form of these medications. 1 heaping tablespoon in water daily. You may continue to utilize any bowel regimen or oral laxatives that you routinely take. ? As long as you are not intolerant to Tylenol, acetaminophen, ibuprofen, M otrin, Advil, Aleve, or similar medications, I would recommend transitioning to these aupk-yqm-haeygzk medicines as soon as possible instead of continued use of narcotic pain medication. Follow up ? You should call [facility] soon after surgery, at [phone] option 2 to make a follow up appointment for 14 days after your surgery. Discharge Orders/Prescriptions Prescriptions: New oxycodone 5 mg Tablet 5 mg PO Q6H PRN PRN (Reason: Pain Score 6-10) 3 Days Qty: 9 0RF Continued naproxen 500 mg tablet 500 mg PO BID PRN PRN (Reason: pain) pregabalin 75 mg capsule 75 mg PO BID Referrals / Follow Up: Christiano Wooten MD [Primary Care Provider] - Tash Marina PA-C [Med Staff - [facility]] - 01/17/24 (Please call for a 2 week appointment) Disposition Disposition (needs filled in before D/C Order can be placed): Home, Self Care
[2024-01-03] MEDS: Bisacodyl 5 MG Tablet 10 MG PO (15:11)
--- NOTE | 2024-01-03 15:31 | NURSING ---
Pt c/o hesitancy urinating, unsure if emptying bladder. Bladder scan showed 28mL residual. Pt tolerated well.
== END 2024-01-03 17:10 | disposition home or self-care (01) ==
LOC: ED 20:30 → SDC 20:37 → MS3 21:11 → SDC 01-03 04:52 → MS3 01-03 04:52
PROVIDERS: Admitting Provider Surgery; Emergency Provider Emergency Medicine; PCP Internal Medicine; Visit Provider Surgery
PROC: 0DTJ4ZZ Resection of Appendix, Percutaneous Endoscopic Approach (ICD-10-PCS; CPT 44970; principal; 2024-01-02 23:30)
DX: K35.80 Unspecified acute appendicitis (principal); J44.9 Chronic obstructive pulmonary disease, unspecified; K57.20 Diverticulitis of large intestine with perforation and abscess without bleeding; Z87.891 Personal history of nicotine dependence; K21.9 Gastro-esophageal reflux disease without esophagitis; Z79.899 Other long term (current) drug therapy; J98.4 Other disorders of lung
CPT/HCPCS: 44970; 00840; 36415; 74177; 80048; 80053; 81001; 83690; 85025; 87040; 88304; 96374; 96375; 96376; 99221; 99283; J7030; Q9967; A4216; G0378; J2405

== ENCOUNTER → 2024-08-12 | Outpatient (CLI) | payer OTHER, SELFPAY ==
[2024-08-12 15:11] LABS: Absolute Lymphocyte Count 0.94 X10^3/uL (0.83-4.51); Absolute Neutrophil Count 3.1 X10^3/uL (2.0-7.7); Basophil# 0.01 X10^3/uL; Basophil% 0.2 % (0-1); Eosinophil# 0.12 X10^3/uL; Eosinophils% 2.6 % (0-5); Hemoglobin 12.2 g/dL (12.0-15.0); Lymphocyte # 0.94 X10^3/ul (0.83-4.51); Lymphocyte % 20.3 % (19-41); Mean Corp Hgb Conc 32.1 g/dL (32-36); Mean Corpuscular Hgb 27.9 pg (27.0-32.0); Mean Platelet Vol. 8.9 fl (6.2-12.0); Monocyte# 0.44 X10^3/uL; Monocyte% 9.5 % (0-10); NRBC Flagged by Analyzer 0 % (0-5); Neutrophil # 3.09 X10^3/uL (2.7-7.7); Neutrophil % 66.8 % (47-70); Platelet Count 253 K/mm3 (150-450); RBC Distribution Width CV 13.1 % (11.6-14.6); RBC Distribution Width SD 41.2 fl (35.1-43.9); Red Blood Count 4.37 M/mm3 (4.2-5.4); White Blood Count 4.6 K/mm3 (4.4-11.0)
[2024-08-12 15:48] LABS: ALB/GLOB Ratio 1.6 RATIO (0.9-2.4); AST(SGOT) 36 U/L (<=31); Alanine Aminotransfer ALT/SGPT 23 U/L (<=34); Albumin, Serum 4.6 g/dL (3.4-4.8); Alkaline Phosphatase 83 U/L (35-104); Anion Gap 12 (5-15); BUN 14 mg/dL (4-19); CRP 3.95 mg/L (0.0-3.0); Calcium,Total 10.1 mg/dL (7.6-11.0); Carbon Dioxide 25.1 mmol/L (21.0-32.0); Chloride 104 mmol/L (98-108); Creatinine, Serum 0.93 mg/dL (0.70-1.20); EST Glomerular Filtration Rate 68 (>60); Globulin 2.9 g/dL (2.2-4.2); Glucose 84 mg/dL (70-99); Potassium 3.6 mmol/L (3.3-5.1); Protein, Total 7.5 g/dL (5.9-8.4); Sodium Level 142 mmol/L (133-145); Total Bilirubin 0.24 mg/dL (0.00-1.30)
[2024-08-14 10:08] LABS: ANTINUCLEAR ANTIBODIES DIRECT Negative (Negative)
== END | disposition home or self-care (01) ==
LOC: LAB 14:18
PROVIDERS: PCP Internal Medicine
DX: K21.9 Gastro-esophageal reflux disease without esophagitis (principal); R19.7 Diarrhea, unspecified
CPT/HCPCS: 36415; 80053; 82784; 82785; 83516; 85025; 86036; 86037; 86038; 86140; 86225; 86255; 86671

== ENCOUNTER → 2024-08-13 | Outpatient (CLI) | payer OTHER, SELFPAY ==
--- OUTSIDE RECORDS SUMMARY | 2024-08-13 07:06 | XMS RPT_ITS | CCD ---
Author Organization [facility] ion [facility] Care Team Providers Care Plating Stripper Name Role Phone TEA ARANDA Unavailable Unavailable [facility] Unavailable Unavailable Christiano Wooten MD Primary Care Provider MARIAM DO Attending Unavailable MARIAM DO Referring Unavailable KASSIDY, CHRISTIANO Primary Care Unavailable KASSIDY, CHRISTIANO Primary Care Unavailable LEMUEL CHÁVEZ Attending Unava ilable BROOKS, MIROSLAVA Primary Care Unavailable BROOKS, MIROSLAVA Referring Unavailable BROOKS, MIROSLAVA Attending Unavailable BROOKS, MIROSLAVA Primary Care Unavailable BROOKS, MIROSLAVA Primary Care Unavailable BROOKS, MIROSLAVA Primary Care Unavailable BROOKS, MIROSLAVA Attending Unavailable BROOKS, MIROSLAVA Primary Care Unavailable BROOKS, MIROSLAVA Referring Unavailable MARIAM DO Admitting Unavailable SAMMARIAM ROMERO Referring Unavailable CHRISTIANO WOOTEN Primary Care Unavailable Masci DO, Michael A Unavailable Christiano Wooten MD Primary Care Provider Masci DO, Michael A Unavailable Masci DO, Michael A Unavailable Christiano Wooten MD Primary Care Provider Masci DO, Michael A Unavailable Christiano Wooten MD Primary Care Provider Masci DO, Michael A Unavailable Christiano Wooten MD Primary Care Provider CHERYL FISHER Referring Unavailable CHRISTIANO WOOTEN Primary Care Unavailable Reddy ACID TREATER.Cheryl SHAW Unavailable Unavailable Primary Care Provider UnavailChristiano Arreguin Primary Care Provider Gloria Flowers MD, Radha Unavailable [phone] Betty FARMER, Eli Dominique Unavailable Unavailable [facility], Radha Unavailable Aime MENON, Liz Unavailable RADHA TERRY Attending Unavailable KASSIDY, CHRISTIANO Primary Care Unavailable [facility] RADHA Referring Unavailable [facility] Attending Unavailable WOOTEN, CHRISTIANO Primary Care Unavailable [facility], RADHA Referring Unavailable [facility], RADHA Referring Unavailable [facility] Attending Unavailable CHRISTIANO WOOTEN Primary Care Unavailable DIULUS III, JAYA Attending Unavailable CHRISTIANO WOOTEN Primary Care Unavailable [facility] Attending Unavailable GLORIA FLOWERS RADHA Attending Unavailable KASSIDY, CHRISTIANO Primary Care Unavailable ALEA LANGSTON Referring Unavailable DIULUS III, JAYA Admitting Unavailable DIULUS III, JAYA Attending Unavailable CHRISTIANO WOOTEN Referring Unavailable BERNY JOHNSON Attending Unavailable WOOTEN, CHRISTIANO Primary Care Unavailable [facility] Attending Unavailable KASSIDY, CHRISTIANO Primary Care Unavailable [facility] Referring Unavailable [facility] RADHA Attending Unavailable KASSIDY, CHRISTIANO Primary Care Unavailable GLORIA [facility], RADHA Referring Unavailable LIZ SALOMON Attending Unavailable KASSIDY, CHELSEA Primary Care Unavailable LIZ SALOMON Attending Unavailable WOOTEN, CHELSEA Primary Care Unavailable MICHAEL MACKEY Attending Unavailable KASSIDY, CHELSEA Primary Care Unavailable MAINOR AYALA Attending Unavailable MICHAEL MACKEY Referring Unavailable KASSIDY, CHELSEA Primary Care Unavailable JONAS AMBROSIO Attending Unavailable NALDO PEGUERO Referring Unavailable WOOTEN, CHELSEA Primary Care Unavailable JONAS AMBROSIO Attending Unavailable NALDO PEGUERO Referring Unavailable WOOTEN, CHELSEA Primary Care Unavailable NALDO PEGUERO Referring Unavailable WOOTEN, CHELSEA Primary Care Unavailable LIZ SALOMON Attending Unavailable KASSIDY, CHELSEA Primary Care Unavailable LIZ SALOMON Referring Unavailable WOOTEN, CHELSEA Primary Care Unavailable LIZ SALOMON Referring Unavailable WOOTEN, CHELSEA Primary Care Unavailable LIZ SALOMON Attending Unavailable LIZ SALOMON Referring Unavailable WOOTEN, CHELSEA Primary Care Unavailable AIME, DAESUNG Attending Unavailable AIME, DAESUNG Referring Unavailable WOOTEN, CHRISTIANO Dailey Primary Care Unavailable AIME, DAALIDAUNG Attending Unavailable WOOTEN, CHELSEA Primary Care Unavailable AIME, DAESUNG Referring Unavailable WOOTEN, CHELSEA Primary Care Unavailable AIME, DAESUNG Referring Unavailable WOOTEN, CHELSEA Primary Care Unavailable AIME, DAESUNG Referring Unavailable WOOTEN, CHRISTIANO Dailey Primary Care Unavailable AIME, DAESUNG Referring Unavailable WOOTEN, CHELSEA Primary Care Unavailable CHERYL FISHER Attending Unavailable WOOTEN, CHELSEA Primary Care Unavailable CHERYL FISHER Referring Unavailable WOOTEN, CHELSEA Primary Care Unavailable CHERYL FISHER Attending Unavailable KASSIDY, CHELSEA Primary Care Unavailable CHERYL FISHER Referring Unavailable WOOTEN, CHELSEA Primary Care Unavailable CHERYL FISHER Attending Unavailable ALEA LANGSTON Referring Unavailable WOOTEN, CHELSEA Primary Care Unavailable AIME, DAESUNG Referring Unavailable WOOTEN, CHELSEA Primary Care Unavailable AIME, DAESUNG Referring Unavailable WOOTEN, CHELSEA Primary Care Unavailable AIME, DAESUNG Referring Unavailable WOOTEN, CHRISTIANO Dailey Primary Care Unavailable AIME, DAESUNG Referring Unavailable WOOTEN, CHRISTIANO Dailey Primary Care Unavailable AIME, DAESUNG Referring Unavailable WOOTEN, CHELSEA Primary Care Unavailable AIME, DAALIDAUNG Attending Unavailable WOOTEN, CHRISTIANO Dailey Primary Care Unavailable MICHAEL MACKEY Attending Unavailable WOOTEN, CHRISTIANO Dailey Primary Care Unavailable AIME, DAESUNG Referring Unavailable WOOTEN, CHELSEA Primary Care Unavailable AIME, DAESUNG Referring Unavailable WOOTEN, CHELSEA Primary Care Unavailable AIME, DAESUNG Referring Unavailable WOOTEN, CHELSEA Primary Care Unavailable AIME, DAESUNG Referring Unavailable WOOTEN, CHELSEA Primary Care Unavailable NALDO PEGUERO Referring Unavailable WOOTEN, CHELSEA Primary Care Unavailable JONAS AMBROSIO Attending Unavailable NALDO PEGUERO Referring Unavailable WOOTEN, CHELSEA Primary Care Unavailable JONAS AMBROSIO Attending Unavailable NALDO PEGUERO Referring Unavailable WOOTEN, CHELSEA Primary Care Unavailable NALDO PEGUERO Referring Unavailable WOOTEN, CHELSEA Primary Care Unavailable JONAS AMBROSIO Attending Unavailable NALDO PEGUERO Referring Unavailable WOOTEN, CHELSEA Primary Care Unavailable WOOTEN, CHELSEA Primary Care Unavailable AIME, DAALIDAUNG Attending Unavailable KASSIDY, CHELSEA Primary Care Unavailable CHERYL FISHER Attending Unavailable KASSIDY, CHELSEA Primary Care Unavailable CHERYL FISHER Referring Unavailable WOOTEN, CHRISTIANO Dailey Primary Care Unavailable MAINOR AYALA Attending Unavailable CHERYL FISHER Referring Unavailable WOOTEN, CHELSEA Primary Care Unavailable CHERYL FISHER Attending Unavailable WOOTEN, CHELSEA Primary Care Unavailable MICHAEL MACKEY Attending Unavailable KASSIDY, CHRISTIANO Dailey Primary Care Unavailable ALEA LANGSTON Referring Unavailable WOOTEN, CHELSEA Primary Care Unavailable ALEA LANGSTON Referring Unavailable WOOTEN, CHELSEA Primary Care Unavailable AIME, DAESUNG Referring Unavailable WOOTEN, CHELSEA Primary Care Unavailable AIME, DAESUNG Referring Unavailable WOOTEN, CHRISTIAON Dailey Primary Care Unavailable AIME, DAESUNG Referring Unavailable WOOTEN, CHRISTIANO Dailey Primary Care Unavailable CHERYL FISHER Attending Unavailable AIME, DAESUNG Referring Unavailable WOOTEN, CHELSEA Primary Care Unavailable AIME, DAESUNG Referring Unavailable WOOTEN, CHELSEA Primary Care Unavailable WOOTEN, CHELSEA Primary Care Unavailable AIME, DAESUNG Referring Unavailable WOOTEN, CHELSEA Primary Care Unavailable AIME, DAESUNG Referring Unavailable WOOTEN, CHELSEA Primary Care Unavailable AIME, DAESUNG Attending Unavailable MICHAEL MACKEY Referring Unavailable WOOTEN, CHRISTIANO Dailey Primary Care Unavailable WOOTEN, CHELSEA Primary Care Unavailable WOOTEN, CHELSEA Primary Care Unavailable AIME, DAESUNG Referring Unavailable WOOTEN, CHELSEA Primary Care Unavailable AIME, DAESUNG Referring Unavailable WOOTEN, CHELSEA Primary Care Unavailable AIME, DAESUNG Attending Unavailable WOOTEN, CHELSEA Primary Care Unavailable AIME, DAESUNG Referring Unavailable WOOTEN, CHELSEA Primary Care Unavailable AIME, DAESUNG Referring Unavailable WOOTEN, CHELSEA Primary Care Unavailable AIME, DAESUNG Attending Unavailable WOOTEN, CHELSEA Primary Care Unavailable AIME, DAESUNG Referring Unavailable WOOTEN, CHELSEA Primary Care Unavailable AIME, DAESUNG Referring Unavailable WOOTEN, CHELSEA Primary Care Unavailable AIME, DAESUNG Referring Unavailable WOOTEN, CHELSEA Primary Care Unavailable AIME LUIS FERNANDOALIDARENÉE Referring Unavailable CHRISTIANO WOOTEN Primary Care Unavailable Dr. Christiano Wooten MD Primary Care Provider Dr. Christiano Wooten MD Referring Provider Brayan PADGETT-CPina Attending Provider Christiano Wooten Referring Unavailable Kassidy, Christiano Primary Care Unavailable Tash Ames Attending Unavailable Kassidy, Christiano Primary Care Unavailable Pina Schmidt Attending Unavailable Christiano Wooten Referring Unavailable Ra Ballard Consulting Unavailable Ra Ballard Attending Unavailable Kassidy, Christiano Primary Care Unavailable Ra Ballard Admitting Unavailable Ra Ballard Consulting Unavailable Tash Ames Attending Unavailable Kassidy, Christiano Primary Care Unavailable Ra Ballard Admitting Unavailable Ra Ballard Attending Unavailable Kassidy, Christiano Primary Care Unavailable Kassidy, Christiano Primary Care Unavailable Pina Schmidt Attending Unavailable Pina Schmidt Referring Unavailable Kassidy, Christiano Referring Unavailable Tash Ames Attending Unavailable Kassidy, Christiano Primary Care Unavailable Allergies Allergy Classification Reported Allergen(s) Allergy Type Date of Onset Reaction(s) Facility anastrozole (1 source) anastrozole Drug Allergy 6 Rash [facility] exemestane (1 source) exemestane Drug Allergy 4 Diarrhea [facility] letrozole (1 source) letrozole Drug Allergy 8 [facility] Work Phone: Tamoxifen (1 source) Tamoxifen Drug Allergy 6 Rash [facility] (20 sources) anastrozole; Translations: [ANASTROZOLE] Drug Allergy 6 Rash, Unknown [facility] Rep[facility] (20 sources) exemestane; Translations: [EXEMESTANE] Drug Allergy 4 Diarrhea, Unknown [facility] Repository (20 sources) tamoxifen; Translations: [TAMOXIFEN] Drug Allergy 6 Rash, [facility] (20 sources) letrozole; Translations: [LETROZOLE] Drug Allergy 8 [facility] Work Phone: (20 sources) letrozole Drug Allergy 8 Rash, Unknown [facility] (1 source) letrozole Drug Allergy [facility] Repository Medications Current Medications Medication Drug Class(es) Dates Sig (Normalized) Sig (Original) acetaminophen 325 mg / oxyCODONE hydrochloride 5 mg oral tablet (8 sources) Opioid Agonist Start: 04-02-2024 End: 04-07-2024 take 1 tablet by mouth every six hours as needed for pain oxyCODONE-acetamino phen (Percocet) 5-325 MG tablet Indications: 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 15 tablet 04/02/2024 12:15 PM EST 04/02/2024 04/07/2024 Active Start: 10-04-2023 End: 10-11-2023 take 1 tablet by mouth twice daily as needed for pain oxyCODONE-acetaminophen (PERCOCET) 5-325 mg tablet Indications: Acute left-sided low back pain with left-sided sciatica , Acute hip pain, left Take 1 tablet by mouth two times a day as needed for pain for up to 7 days. 14 tablet 10/04/2023 10/11/2023 Active Start: 09-12-2023 End: 10-04-2023 take 1 tablet by mouth every eight hours as needed for pain oxyCODONE-acetaminophen (PERCOCET) 5-325 mg tablet Indications: Acute left-sided low back pain with left-sided sciatica , Acute hip pain, left Take 1 tablet by mouth every 8 hours as needed for pain for up to 7 days. 21 tablet 09/12/2023 10/04/2023 Discontinued atropine sulfate 0.025 mg / diphenoxylate hydrochloride 2.5 mg oral tablet (20 sources) Anticholinergic, Cholinergic Muscarinic Antagonist, Antidiarrheal Start: 03-13-2024 take 1 tablet by mouth every six hours as needed diphenoxylate-atropine (Lomotil) 2.5-0.025 MG tablet Take 1 tablet by mouth every 6 hours as needed. 03/13/2024 Active Start: 03-13-2024 End: 04-16-2024 take 1 tablet by mouth four times daily as needed for diarrhea diphenoxylate-atropine (LOMOTIL) 2.5-0.025 mg per tablet Indications: Chronic diarrhea Take 1 tablet by mouth four times a day as needed for diarrhea for up to 7 days. 28 tablet 03/13/2024 04/16/2024 Discontinued (Course of therapy completed) biotin 5 mg oral capsule (20 sources) Start: 01-31-2024 take 1 capsule by mouth once daily Biotin 5 mg capsule Active 5 mg PO daily January 31, 2024 1:00am Start: 03-06-2017 take 1 capsule by mo uth twice daily biotin 1 mg cap Take 1 capsule by mouth two times a day. 03/06/2017 Active Start: 03-06-2017 take 1 capsule by mo uth once daily biotin 1 mg cap Take 1 capsule by mouth once daily. 03/06/2017 Active Start: 03-06-2017 End: 01-02-2024 take 2 capsules by mouth every week Biotin 1 MG capsule Discontinued 2 mg PO EVERY WEEK March 06, 2017 1:00am January 02, 2024 10:10pm Start: 03-06-2017 take 2 mg by mouth every week Biotin Active 2 MG PO EVERY WEEK March 06, 2017 2:53pm 24 hr budesonide 9 mg extended release oral tablet (13 sources) Corticosteroid Start: 05-08-2024 End: 06-25-2024 take 1 tablet by mouth once daily budesonide 9 mg TaDE Take 1 tablet by mouth once daily. 48 tablet 05/08/2024 06/25/2024 Active cholestyramine resin 4000 mg powder for oral suspension (20 sources) Bile Acid Sequestrant Start: 03-24-2024 End: 04-23-2024 take 4 g by mouth three times daily at mealtime cholestyramine (Questran) 4 g packet Take 4 g by mouth 3 times daily (with meals). 03/24/2024 Active colestipol hydrochloride 5000 mg granules for oral suspension (20 sources) Bile Acid Sequestrant Start: 08-12-2024 take 5 g by mouth once daily Colestipol 5 gram granules Active 5 g PO daily August 12, 2024 12:00am Start: 07-22-2024 take 2 tablets by mo uth once daily at bedtime colestipol (COLESTID) 1 gram tablet Take 2 tablets by mouth daily at bedtime. 60 tablet 5 07/22/2024 Active Start: 07-15-2024 take 5 g by mouth twice daily Colestipol HCl 5 gram granules Take 5 g by mouth two times a day. 180 packet 3 07/15/2024 Active Start: 04-16-2024 End: 06-26-2024 take 2 tablets by mouth once daily at bedtime colestipol (COLESTID) 1 gram tablet Indications: Chronic diarrhea Take 2 tablets by mouth daily at bedtime. 60 tablet 5 04/16/2024 06/26/2024 Discontinued cyclobenzaprine hydrochloride 10 mg oral tablet (20 sources) Muscle Relaxant Start: 10-25-2023 take 1 tablet by mouth every eight hours as needed cyclobenzaprine (Flexeril) 10 MG tablet Take 10 mg by mouth every 8 hours as needed. 10/25/2023 Active Start: 10-25-2023 End: 04-16-2024 take 1 tablet by mouth every eight hours as needed cyclobenzaprine (FLEXERIL) 10 mg tablet Take 1 tablet by mouth three times a day as needed for muscle spasm. 30 tablet 10/25/2023 04/16/2024 Discontinued (Course of therapy completed) Start: 09-01-2023 End: 10-04-2023 take 1 tablet by mouth three times daily as needed for muscle spasms cyclobenzaprine (FLEXERIL) 10 mg tablet Indications: Acute left-sided low back pain with left-sided sciatica Take 1 tablet by mouth three times a day as needed for muscle spasm. 21 tablet 09/08/2023 10/04/2023 Discontinued (Course of therapy completed) exemestane 25 mg oral tablet (6 sources) Aromatase Inhibitor Start: 06-26-2024 take 1 tablet by mouth once daily after mealtime exemestane (AROMASIN) 25 mg tablet Take 1 tablet by mouth once daily. TAKE AFTER A MEAL. 30 tablet 5 06/26/2024 Active fluocinonide 0.5 mg/ml topical cream (20 sources) Corticosteroid Start: 04-26-2023 fluocinonide (LIDEX) 0.05 % cream Apply to affected area two times a day as needed (for areas of rash, limit to not more than 2 weeks use at a time.). 30 g 04/26/2023 Active Start: 09-16-2020 End: 09-29-2022 fluocinonide (LIDEX) 0.05 % cream Apply to affected area twice daily as needed (for areas of rash, limit to not more than 2 weeks use at a time.). 30 g 1 09/16/2020 09/29/2022 Discontinued Comment on above: Apply to affected ar ea twice daily as needed (for areas of rash, limit to not more than 2 weeks use at a time.). Apply to affected ar ea two times a day as needed (for areas of rash, limit to not more than 2 weeks use at a time.). loperamide hydrochloride 2 mg oral capsule (1 source) Opioid Agonist Start: 08-13-19 take 1 capsule by mouth every six hours as needed Loperamide (Imodium A-D) 2 mg capsule Active 2 mg PO EVERY 6 HOURS as needed August 12, 2024 12:00am meloxicam 15 mg oral tablet (20 sources) Nonsteroidal Anti-inflammatory Drug Start: 01-19-20 24 take 1 tablet by mouth once daily Meloxicam 15 mg tablet Active 15 mg PO daily January 31, 2024 1:00am methocarbamol 500 mg oral tablet (20 sources) Muscle Relaxant Start: 08-13-19 Methocarbamol 500 mg tablet Active 750 mg PO THREE TIMES A DAY August 12, 2024 1:35pm Start: 03-31-2024 take 1 tablet by eliezer th every eight hours as needed methocarbamol (ROBAXIN) 750 mg tablet Take 750 mg by mouth three times a day as needed. 03/31/2024 Active Start: 01-31-2024 End: 08-12-2024 take 1 tablet by mouth three times daily as needed for muscle spasms methocarbamol (Robaxin) 500 MG tablet Take 500 mg by mouth 3 times daily as needed for muscle spasms. 02/23/2024 Active Start: 06-09-2020 take 1 tablet by eliezer th three times daily as needed for muscle spasms methocarbamoL (Robaxin) 500 MG tablet Take 1 (one) tablet (500 mg total) by mouth 3 (three) times a day as needed for muscle spasms . 30 tablet 0 06/09/2020 Active Multivitamin tablet (1 source) Start: 01-31-2024 Multivitamin t ablet Active 1 {tbl} PO EVERY MORNING January 31, 2024 1:00am Mv-Min-Vit C-Glu-Kym Ac-Hb12 4 (Airborne Tablet Chewable) 1 EACH tablet,chewable (3 sources) Start: 03-06-2017 Mv-Min-Vit C-G angelica-Kym Ac-Hb124 (Airborne Tablet Chewable) 1 EACH tablet,chewable Active 1 EACH PO NEEDED March 06, 2017 2:53pm Start: 03-06-2017 End: 01-02-2024 Mv-Min-Vit C-Glu-Kym Ac-Hb12 4 (Airborne Tablet Chewable) 1 EACH tablet,chewable Discontinued 1 NMA PO NEEDED as needed for Not Specified March 06, 2017 1:00am January 02, 2024 10:10pm Start: 03-06-2017 Mv-Min-Vit C-G angelica-Kym Ac-Hb124 (Airborne Tablet Chewable) 1 EACH tablet,chewable Active 1 EACH PO NEEDED March 06, 2017 1:00am ondansetron 4 mg oral tablet (20 sources) Serotonin-3 Receptor Antagonist Start: 04-02-2024 End: 04-02-2025 take 1 tablet by mouth every twenty-four hours as needed for nausea and vomiting ondansetron (Zofran) 4 MG tablet Take 1 tablet (4 mg) by mouth Daily as needed for nausea or vomiting. 20 tablet 04/02/2024 12:15 PM EST 04/02/2024 04/02/2025 Active Start: 04-02-2024 End: 04-02-2024 4 mg, IntraVENous, Once PRN, nausea, Starting on Mon04/02/24 at 1019, For 1 dose, Recovery (only), Initial antiemetic therapy. Start: 04-02-2024 End: 04-02-2024 IntraVENous, As needed, Star ting on Mon04/02/24 at 0928, Anesthesia Intraprocedure microencapsulated potassium chloride 20 meq extended release oral tablet (2 sources) Start: 03-13-2024 End: 03-16-2024 take 1 tablet by mouth once daily potassium chloride ER (KLOR-CON M20) 20 mEq tablet Take 1 tablet by mouth once daily for 3 days. 3 tablet 03/13/2024 03/16/2024 Active sulfamethoxazole 800 mg / trimethoprim 160 mg oral tablet (2 sources) Dihydrofolate Reductase Inhibitor Antibacterial, Sulfonamide Antimicrobial Start: 10-06-2023 End: 2023 take 1 tablet by mouth twice daily sulfamethoxazol e-trimethoprim (BACTRIM DS) 800-160 mg per tablet Take 1 tablet by mouth two times a day for 7 days. 14 tablet 10/06/2023 2023 Active Completed/Discontinued Medications Medication Drug Class(es) Dates Sig (Normalized) Sig (Original) acetaminophen 500 mg oral tablet (20 sources) End: 06-11-2024 take 2 tablets by mouth every eight hours as needed acetaminophen (TYLENOL EXTRA STRENGTH) 500 mg tablet Take 1,000 mg by mouth every 8 hours as needed. 06/11/2024 Discontinued (Course of therapy completed) take 2 tablets by mo ut every six hours as needed for pain acetaminophen (Tylenol) 500 MG tablet Ta ke 1,000 mg by mouth every 6 hours as needed for mild pain (1-3). Active [id number] 200 actuat albuterol 0.09 mg/actuat metered dose inhaler (20 sources) beta2-Adrenergic Agonist Start: 08-25-2021 End: 09-29-2022 take 2 puff(s) by inhalation every six hours as needed for wheezing albuterol HFA (PROVENTIL HFA, VENTOLIN HFA) 90 mcg/actuation inhaler Indications: Wheezing Inhale 2 Puffs as instructed every 6 hours as needed for wheezing/shortness of breath. 1 Inhaler 08/25/2021 09/29/2022 Discontinued Start: 07-28-2021 End: 01-02-2024 Albuterol Sulfate (Ventolin Hfa) 90 mcg/actuation HFA aerosol inhaler Discontinued 1 - 2 NMA INHALATION EVERY 4 HOURS NEEDED as needed for Wheezing 1 0 July 28, 2021 12:00am January 02, 2024 10:10pm Start: 07-28-2021 take 1 puff(s) by in halation every four hours as needed Albuterol Sulfate (Ventolin Hfa) 90 mcg/actuation HFA aerosol inhaler Active 1 - 2 PUFF INHALATION EVERY 4 HOURS NEEDED July 28, 2021 12:00am Comment on above: Inhale 2 Puffs as in structed every 6 hours as needed for wheezing/shortness of breath. ALPRAZolam 0.25 mg disintegrating oral tablet (2 sources) Benzodiazepine Start : 04-02 End: 04-02 take 0.25 mg by mouth once as needed for anxiety 0.25 mg, Oral, Once PRN, anxiety, Starting on Mon04/02/24 at 0542, For 1 dose, Preprocedure, Please do not administer prior to obtaining consent and/or history and physical. calcium chloride 0.0014 meq/ml / potassium chloride 0.004 meq/ml / sodium chloride 0.103 meq/ml / sodium lactate 0.028 meq/ml injectable solution (5 sources) Start : 04-02 End: 04-02 take 125 mL intravenously every hour 125 mL/hr, IntraVENous, Continuous, Starting on Mon04/02/24 at 1030, Recovery (only) ceFAZolin 2000 mg injection (1 source) Cephalosporin Antibacterial Start : 04-02 End: 04-02 2,000 mg, IntraVENous, Administer over 30 Minutes, Product Engineer to O.R., On Mon04/02/24 at 0545, For 1 dose, Preprocedure, Administer within 1 hour prior to incision. Recommend to repeat in 3-4 hours after initial dose if still intra-op. premix bag, Suspected Indication (Select all that apply): Surgical Prophylaxis ciprofloxacin 500 mg oral tablet (3 sources) Quinolone Antimicrobial Start : 07-08 End: 08-26 take 1 tablet by mouth once daily Ciprofloxacin Hcl (Cipro) 500 mg tablet Discontinued 500 mg PO DAILY 5 5 0 July 08, 2021 12:00am August 26, 2021 10:04am 1 ml dexamethasone phosphate 10 mg/ml injection (1 source) Corticosteroid Start : 04-02 End: 04-02 IntraVENous, As needed, Starting on Mon04/02/24 at 0736, Anesthesia Intraprocedure dexAMETHasone-bupiva jluis-epinephrine (TAP) syringe (1 source) Start : 04-02 End: 04-02 Injection, Once PRN Procedure, Starting on Mon04/02/24 at 0740, For 1 dose, Anesthesia Intraprocedure dexmedeTOMIDine HCl in NaCl (Precedex) injection (1 source) Start : 04-02 End: 04-02 IntraVENous, As needed, Starting on Mon04/02/24 at 0755, Anesthesia Intraprocedure 1 ml diphenhydrAMINE hydrochloride 50 mg/ml cartridge (2 sources) Histamine-1 Receptor Antagonist Start : 04-02 End: 04-02 12.5 mg, IntraVENous, Once PRN, itching, Starting on Mon04/02/24 at 1019, For 1 dose, Recovery (only) DULoxetine 30 mg delayed release oral capsule (20 sources) Serotonin and Norepinephrine Reuptake Inhibitor Start : 01-30 End: 08-12 take 1 capsule by mouth twice daily Duloxetine 30 mg capsule,delayed release(DR/EC) Discontinued 30 mg PO TWICE A DAY January 31, 2024 1:00am August 12, 2024 1:35pm Start: 01-19-2024 take 1 capsule by [facility] once daily DULoxetine (Cymbalta) [address] capsule TAKE 1 capsule by mouth once a day for 30 days take 30 mg for one week, the may increase to 60 mg a day 01/19/2024 Active 0.4 ml enoxaparin sodium 100 mg/ml prefilled syringe (2 sources) Low Molecular Weight Heparin Start: 04-02-2024 End: 04-02-2024 inject 40 mg by subcutaneous injection once 40 mg, SubCUTAneous, Once, On Mon04/02/24 at 0545, For 1 dose, Preprocedure, Indication of Use: Prophylaxis-DVT/PE 10 ml esmolol hydrochloride 10 mg/ml injection (1 source) beta-Adrenergic Wanda Start: 04-02-2024 End: 04-02-2024 IntraVENous, As needed, Starting on Mon04/02/24 at 0736, Anesthesia Intraprocedure famotidine 20 mg oral tablet (3 sources) Histamine-2 Receptor Antagonist Start: 07-08-2021 End: 08-26-2021 take 1 tablet by mouth once daily Famotidine (Pepcid) 20 mg Tablet Discontinued 20 mg PO DAILY July 08, 2021 12:00am August 26, 2021 10:05am 2 ml fentaNYL 0.05 mg/ml injection (4 sources) Opioid Agonist Start: 04-02-2024 End: 04-02-2024 50 mcg, IntraVENous, Every 5 min PRN, severe pain (7-10), Starting on Mon04/02/24 at 1019, For 3 doses, Recovery (only), Phase I and Phase II- Initial therapy for severe pain (7-10). Restricted to a 90 minute time frame starting when the patient can verbally state their pain score. If after 2 doses the pain score does not decrease by more than one point, then call the provider. If oral meds are utilized, do not return to initial therapy medications. Start: 04-02-2024 End: 04-02-2024 25 mcg, IntraVENous, Every 5 min PRN, moderate pain (4-6), Starting on Mon04/02/24 at 1019, For 3 doses, Recovery (only), Phase I and Phase II- Initial therapy for moderate pain (4-6). Restricted to a 90 minute time frame starting when the patient can verbally state their pain score. If after 2 doses the pain score does not decrease by more than one point, then call the provider. If oral meds are utilized, do not return to initial therapy medications. gabapentin 300 mg oral capsule (18 sources) Anti-epileptic Agent Start: 09-22-2023 End: 04-16-2024 take 1 capsule by mouth once daily gabapentin (NEURONTIN) 300 mg capsule Take 300 mg by mouth once daily. 09/22/2023 04/16/2024 Discontinued (Course of therapy completed) gadopiclenol (Vueway) injection 6.5 mL (2 sources) Start: 04-17-2024 End: 04-17-2024 take 6.5 mL intravenously once as needed 6.5 mL, IntraVENous, IMG once PRN, contrast, Starting on Mon04/17/24 at 0656, For 1 dose 1 ml HYDROmorphone hydrochloride 2 mg/ml cartridge (1 source) Opioid Agonist Start: 04-02-2024 End: 04-02-2024 IntraVENous, As needed, Starting on Mon04/02/24 at 0954, Anesthesia Intraprocedure ibuprofen 200 mg oral tablet (13 sources) Nonsteroidal Anti-inflammatory Drug End: 06-11-2024 take 2 tablets by mouth every eight hours as needed ibuprofen (MOTRIN) 200 mg tablet Take 400 mg by mouth every 8 hours as needed. 06/11/2024 Discontinued (Course of therapy completed) iopamidol (Isovue-370) 76 % injection 75 mL (2 sources) Start: 04-22-2024 End: 04-22-2024 take 75 mL intravenously once as needed 75 mL, IntraVENous, IMG once PRN, contrast, Starting on Mon04/22/24 at 1441, For 1 dose isopropyl alcohol 0.7 ml/ml medicated pad (2 sources) Start: 04-02-2024 End: 04-02-2024 2 Swab (1 Package), Topical, Once, On Mon04/02/24 at 0545, For 1 dose, Preprocedure, Flip ampule around in paper sleeve to expose swab tip. Shake well. With sleeve on ampule, crush at dot to pop. Squeeze to wet swab tip. Swab around nostril rims 8 times in each direction. Squeeze to rewet swab tip and repeat. Repeat for other nostril. Caution : Do not extend in nose beyond swab tip. Appy to skin only. Discard after use. ketamine 10 mg/ml injectable solution (1 source) General Anesthetic Start: 04-02-2024 End: 04-02-2024 IntraVENous, As needed, Starting on Mon04/02/24 at 0736, Anesthesia Intraprocedure 1 ml ketorolac tromethamine 30 mg/ml cartridge (1 source) Nonsteroidal Anti-inflammatory Drug, Cyclooxygenase Inhibitor Start: 04-02-2024 End: 04-02-2024 IntraVENous, As needed, Starting on Mon04/02/24 at 0957, Anesthesia Intraprocedure labetalol (Normodyne,Trandat e) injection 5 mg (2 sources) Start: 04-02-2024 End: 04-02-2024 labetalol (Normodyne,Trandat e) injection 5 mg levoFLOXacin 750 mg oral tablet (2 sources) Quinolone Antimicrobial Start: 07-28-2021 End: 08-26-2021 take 1 tablet by mouth every twenty-four hours Levofloxacin 750 mg tablet Discontinued 750 mg PO Q24H 5 0 July 28, 2021 12:00am August 26, 2021 10:05am 10 ml lidocaine hydrochloride 20 mg/ml injection (1 source) Antiarrhythmic, Amide Local Anesthetic Start: 04-02-2024 End: 04-02-2024 IntraVENous, As needed, Starting on Mon04/02/24 at 0736, Anesthesia Intraprocedure loratadine 10 mg oral tablet (1 source) Start: 05-21-2020 End: 09-16-2020 take 1 tablet by mouth once daily loratadine (CLARITIN) 10 mg tablet Indications: Rash and nonspecific skin eruption Take 1 tablet by mouth once daily. 30 tablet 2 05/21/2020 09/16/2020 Discontinued 50 ml magnesium sulfate 40 mg/ml injection (1 source) Start: 04-02-2024 End: 04-02-2024 IntraVENous, Administer over 2 Hours, As needed, Starting on Mon04/02/24 at 0800, Anesthesia Intraprocedure 2 ml midazolam 1 mg/ml injection (1 source) Benzodiazepine Start: 04-02-2024 End: 04-02-2024 IntraVENous, As needed, Starting on Mon04/02/24 at 0733, Anesthesia Intraprocedure multivit-min/vit C/herb no.124 (AIRBORNE GUMMY ORAL) (20 sources) End: 05-01-2024 multivit-min/vit C/herb no.124 (AIRBORNE GUMMY ORAL) Take by mouth. 05/01/2024 Discontinued multivit-min/vit C/herb no.124 (AIRBORNE GUMMY ORAL) Take by mouth. Active multivit-min/vit C/herb no.124 (AIRBORNE GUMMY ORAL) Take by mouth. 0 Active Comment on above: Take by mouth. naproxen 500 mg oral tablet (20 sources) Nonsteroidal Anti-inflammatory Drug Start: 4 End: 4 take 1 tablet by mouth twice daily as needed for pain Naproxen 500 mg tablet Discontinued 500 mg PO TWICE DAILY NEEDED as needed for pain January 02, 2024 1:00am January 31, 2024 9:16am Start: 10-25-2023 End: 04-16-2024 naproxen (Naprosyn) 500 MG t ablet Take 500 mg by mouth. 10/25/2023 Active omeprazole 20 mg delayed release oral capsule (19 sources) Proton Pump Inhibitor Start: 09-22-2021 End: 09-29-2022 take 1 capsule by mouth once daily before breakfast omeprazole (PRILOSEC) 20 mg capsule Indications: Laryngeal hyperfunction Take 1 capsule by mouth daily before breakfast. 30 capsule 2 09/22/2021 09/29/2022 Discontinued Start: 05-31-2021 End: 08-25-2021 take 2 capsules by mouth once daily omeprazole (PRILOSEC) 20 mg capsule Indications: Globus sensation Take 2 capsules by mouth once daily. 30 capsule 2 05/31/2021 08/25/2021 Discontinued Comment on above: Take 2 capsules by m outh once daily. Take 1 capsule by mo uth daily before breakfast. oxyCODONE hydrochloride 5 mg oral tablet (1 source) Opioid Agonist Start: 4 End: 4 take 1 tablet by mouth every six hours as needed for pain Oxycodone 5 mg Tablet Discontinued 5 mg PO EVERY 6 HOURS NEEDED as needed for Pain Score 6-10 9 3 0 January 03, 2024 January 17, 2024 10:11am Acute appendicitis Unspecified acute appendicitis pantoprazole 40 mg delayed release oral tablet (3 sources) Proton Pump Inhibitor Start: 2 End: 2 take 1 tablet by mouth twice daily Pantoprazole (Protonix) 40 mg tablet,delayed release (DR/EC) Discontinued 40 mg PO TWICE A DAY 14 7 0 July 08, 2021 12:00am August 26, 2021 10:05am perflutren lipid microspheres 1.3 mL in NaCl (PF) 0.9% 10 mL injection (DEFINITY) (4 sources) Start: 1 End: 2 perflutren lipid microspheres 1.3 mL in NaCl (PF) 0.9% 10 mL injection (DEFINITY) Start: 11-23-2020 End: 02-22-2022 perflutren lipid microsphere s 1.3 mL in NaCl (PF) 0.9% 10 mL injection (DEFINITY) Phenylephrine HCl (Pressors) 1 MG/10ML injection (1 source) Start: 04-02-2024 End: 04-02-2024 IntraVENous, Continuous PRN, Starting on Mon04/02/24 at 0825, Anesthesia Intraprocedure predniSONE 10 mg oral tablet (15 sources) Start: 09-08-2023 End: 09-14-2023 predniSONE (DELTASONE) 10 mg tablet Indications: Acute left-sided low back pain with left-sided sciatica Take by mouth 6 pills on day 1, 5 pills on day 2, 4 pills on day 3, 3 pills on day 4, 2 pills on day 5, 1 pill on day 6 21 tablet 09/08/2023 09/14/2023 Start: 09-01-2023 End: 10-04-2023 predniSONE (DELTASONE) 10 mg tablet Indications: Left sided sciatica Take 4 tabs daily for 3 days, then 2 tabs daily for 3 days, then 1 tab daily for 3 days with food. 21 tablet 09/01/2023 10/04/2023 Discontinued (Course of therapy completed) Start: 07-28-2021 End: 08-26-2021 take 4 tablets by mouth once daily, then take 3 tablets by mouth once daily, then take 2 tablets by mouth once daily, then take 1 tablet by mouth once daily Prednisone 10 mg tablet Discontinued 10 mg PO DAILY 34 0 July 28, 2021 12:00am August 26, 2021 10:05am 4 po qd x 4 days, 3 po qd x 3 days, 2 po qd x 3 days, 1 po qd x 3 days pregabalin 75 mg oral capsule (1 source) Start: 01-02-2024 End: 01-31-2024 take 1 capsule by mouth twice daily Pregabalin 75 mg capsule Discontinued 75 mg PO TWICE A DAY January 02, 2024 1:00am January 31, 2024 9:16am pain 100 ml propofol 10 mg/ml injection (2 sources) General Anesthetic Start: 04-02-2024 End: 04-02-2024 IntraVENous, Continuous PRN, Starting on Mon04/02/24 at 0751, Anesthesia Intraprocedure Start: 04-02-2024 End: 04-02-2024 IntraVENous, As needed, Star ting on Mon04/02/24 at 0736, Anesthesia Intraprocedure rocuronium bromide 10 mg/ml injectable solution (1 source) Nondepolarizing Neuromuscular Wanda Start: 04-02-2024 End: 04-02-2024 IntraVENous, As needed, Starting on Mon04/02/24 at 0736, Anesthesia Intraprocedure silver sulfADIAZINE 10 mg/ml topical cream (2 sources) Sulfonamide Antibacterial Start: 06-25-2024 End: 06-26-2024 silver sulfADIAZINE (SILVADENE) 1 % cream Apply 1 application to affected area two times a day. 50 g 06/25/2024 06/26/2024 Discontinued 5 ml sodium chloride 9 mg/ml injection (20 sources) Start: 04-02-2024 End: 04-02-2024 500 mL, IntraVENous, at 1,000 mL/hr, Administer over 0.5 Hours, PRN, Anti-nausea, Starting on Mon04/02/24 at 1019, Recovery (only), Indications: Anti-nausea Start: 04-02-2024 End: 04-02-2024 10 mL, IntraVENous, Every 12 hours scheduled (2 times per day), First dose on Mon04/02/24 at 1030, Recovery (only) Start: 04-02-2024 End: 04-02-2024 take 100 mL intravenously every hour as needed, then take 20 mL intravenously every hour as needed 5-250 mL/hr, IntraVENous, PRN, if patient receiving piggyback infusions and maintenance fluids are not ordered OR KVO fluids to protect IV site / prevent frequent line interruptions/ long duration, Starting on Mon04/02/24 at 1019, Recovery (only), For piggyback infusion, administer at same rate as piggyback for a total of 25 mL. Enter 25 mL into dose field and piggyback rate into rate field of order. If piggyback is infusing at a rate less than 100 mL/hr, enter 25 mL into dose field and 100 mL/hr into rate field of order. For KVO fluids, enter rate of 20 mL/hr or less into rate field of order. Start: 04-02-2024 End: 04-02-2024 take 10 mL intravenously once as needed 10 mL, IntraVENous, PRN, line care, Starting on Mon04/02/24 at 1019, Recovery (only), After every IV line use Start: 04-02-2024 End: 04-02-2024 take 5-40 mL intravenously every twelve hours 5-40 mL, IntraVENous, Every 12 hours, First dose on Mon04/02/24 at 0545, Preprocedure, For Line Patency: Peripheral IV = 5 mL; Midline or Central Line = 10 mL/lumen. If following IV push medication, administer flush at same rate as the IV push. Flush volume is determined by type of infusion therapy being given. For non-viscous solutions use: Peripheral IV = 5 mL Midline or Central Line = 10 mL/lumen For viscous solutions (i.e. blood components, parenteral nutrition, contrast media, or after obtaining blood sample) use: Peripheral IV = 10 mL Midline or Central Line = 20 mL/lumen Start: 11-23-2020 End: 02-22-2022 sodium chloride 0.9 % (flush ) 10 mL (BD POSIFLUSH) 2 ml sugammadex 100 mg/ml injection (1 source) Start: 04-02-2024 End: 04-02-2024 IntraVENous, As needed, Starting on Mon04/02/24 at 1002, Anesthesia Intraprocedure technetium Tc-99m medronate (Tc-MDP) radio-isotope injection 23 millicurie (2 sources) Start: 04-26-2024 End: 04-26-2024 23 millicurie, IntraVENous, Once, On Mon04/26/24 at 0915, For 1 dose varenicline 0.5 mg oral tablet (20 sources) Partial Cholinergic Nicotinic Agonist Start: 07-08-2021 End: 01-02-2024 take 1 tablet by mouth twice daily Varenicline Tartrate (Chantix) 0.5 mg Tablet Discontinued 0.5 mg PO TWICE A DAY July 08, 2021 12:00am January 02, 2024 10:10pm Start: 05-31-2021 End: 09-29-2022 take 1 tablet by mouth once daily varenicline (CHANTIX STARTING MONTH BOX) 0.5 mg (11)- 1 mg (42) tablet Indications: Tobacco use disorder Take 0.5 mg by mouth once daily on Days 1 through 3, THEN 0.5 mg twice daily on Days 4 through 7, THEN 1 mg twice daily on Day 8 and thereafter 53 tablet 05/31/2021 09/29/2022 Discontinued Start: 11-23-2020 End: 09-29-2022 take 1 tablet by mouth twice daily varenicline (CHANTIX CONTINUING MONTH BOX) 1 mg tablet Indications: Tobacco use disorder Take 1 tablet by mouth twice daily. 60 tablet 2 05/31/2021 09/29/2022 Discontinued Start: 05-21-2020 End: 06-22-2020 take 1 tablet by mouth once daily varenicline (CHANTIX STARTING MONTH BOX) 0.5 mg (11)- 1 mg (42) tablet Indications: Tobacco use disorder Take 0.5 mg by mouth once daily on Days 1 through 3, THEN 0.5 mg twice daily on Days 4 through 7, THEN 1 mg twice daily on Day 8 and thereafter 53 tablet 05/21/2020 06/22/2020 Discontinued take 1 tablet by eliezer th twice daily varenicline (CHANTIX) 0.5 MG tablet Take 0.5 mg by mouth 2 (two) times a day . 0 Active Comment on above: Take 0.5 mg by mouth once daily on Days 1 through 3, THEN 0.5 mg twice daily on Days 4 through 7, THEN 1 mg twice daily on Day 8 and thereafter Take 1 tablet by eliezer th twice daily. Vitamin B Complex (20 sources) End: 04-16-2024 take 1 tablet by mouth once daily vitamin B complex (VITAMIN B-100 COMPLEX ORAL) Take 1 tablet by mouth once daily. 04/16/2024 Discontinued (Discontinued by another Health Care Provider) take 1 tablet by mouth once lana y vitamin B complex (VITAMIN B-100 COMPLEX ORAL) Take 1 tablet by mouth once daily. Active take 1 tablet by mouth once lana y vitamin B complex (VITAMIN B-100 COMPLEX ORAL) Take 1 tablet by mouth once daily. 0 Active Problems Active Problems Problem Classification Problem Date Documented Da te Episodic/Chronic Anxiety disorders (2 sources) Anxiety; Translations: [Anxiety disorder, unspecified] Onset: 5 06-11-2024 Chronic Cancer of breast (20 sources) Malignant neoplasm of female breast; Translations: [Malignant neoplasm of unspecified site of right female breast] Onset: 3 Resolved: 1 03-06-2017 Chronic Cancer of breast (12 sources) History of malignant neoplasm of breast; Translations: [Personal history of malignant neoplasm of breast] Onset: 4 Episodic Cardiac dysrhythmias (20 sources) Supraventricular tachycardia; Translations: [Supraventricular tachycardia] Onset: 1 11-23-2020 Chronic Cataract (20 sources) Nuclear senile cataract; Translations: [Age-related nuclear cataract, unspecified eye] Onset: 5 11-19-2014 Chronic Chronic obstructive pulmonary disease and bronchiectasis (3 sources) Acute exacerbation of chronic obstructive airways disease; Translations: [Chronic obstructive pulmonary disease with (acute) exacerbation] 08-05-2021 Chronic Diseases of white blood cells (2 sources) Leukocytosis; Translations: [Elevated white blood cell count, unspecified] Onset: 4 01-17-2024 Chronic Esophageal disorders (4 sources) Gastroesophageal reflux disease; Translations: [Gastro-esophageal reflux disease without esophagitis] Onset: 5 01-17-2024 Chronic Gastritis and duodenitis (4 sources) Gastritis; Translations: [Gastritis, unspecified, without bleeding] Episodic Genitourinary symptoms and ill-defined conditions (20 sources) Pyuria; Translations: [Pyuria] Onset: 3 05-30-2022 Episodic Immunizations and screening for infectious disease (1 source) Vaccination needed; Translations: [Encounter for immunization] Episodic Lymphadenitis (10 sources) Cervical lymphadenopathy; Translations: [Localized enlarged lymph nodes] Onset: 5 04-10-2024 Episodic Nausea and vomiting (4 sources) Nausea, vomiting and diarrhea; Translations: [Nausea with vomiting, unspecified] Episodic Noninfectious gastroenteritis (4 sources) Lymphocytic colitis; Translations: [Other and unspecified noninfectious gastroenteritis and colitis] Onset: 5 05-01-2024 Chronic Noninfectious gastroenteritis (10 sources) Colitis; Translations: [Noninfective gastroenteritis and colitis, unspecified] Onset: 5 Episodic Nonspecific chest pain (2 sources) Central chest pain; Translations: [Chest pain, unspecified] 05-30-2022 Episodic Other and unspecified benign neoplasm (3 sources) 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; Translations: [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, unspecified] Onset: 5 04-02-2024 Episodic Other and unspecified benign neoplasm (1 source) 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, unspecified; Translations: [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, unspecified] Onset: 5 Episodic Other bone disease and musculoskeletal deformities (1 source) Clavicle pain; Translations: [Other specified disorders of bone, shoulder] Episodic Other circulatory disease (1 source) Feeling of lump in throat; Translations: [Other specified symptoms and signs involving the circulatory and respiratory systems] Episodic Other connective tissue disease (1 source) Cramp in lower limb; Translations: [Cramp and spasm] 04-26-2023 Episodic Other connective tissue disease (4 sources) Pain in axilla; Translations: [Pain in right upper arm] 04-27-2023 Episodic Other connective tissue disease (1 source) Pain in lower limb; Translations: [Pain in left leg] 09-12-2023 Episodic Other connective tissue disease (4 sources) Other symptoms and signs involving the musculoskeletal system; Translations: [Other musculoskeletal symptoms referable to limbs] Onset: 4 10-04-2023 Episodic Other connective tissue disease (2 sources) Pain in left lower limb; Translations: [Pain in left leg] 10-25-2023 Episodic Other gastrointestinal disorders (1 source) Irritable bowel syndrome without diarrhea; Translations: [Irritable bowel syndrome, unspecified] Onset: 5 Chronic Other gastrointestinal disorders (1 source) Diarrhea of presumed infectious origin; Translations: [Diarrhea, unspecified] Episodic Other gastrointestinal disorders (2 sources) History of gastritis; Translations: [Personal history of other diseases of the digestive system] 08-26-2021 Episodic Other gastrointestinal disorders (2 sources) H/O: colitis; Translations: [Personal history of other diseases of the digestive system] 08-26-2021 Episodic Other gastrointestinal disorders (20 sources) Diarrhea; Translations: [Diarrhea, unspecified] Resolved: 1 05-21-2020 Episodic Other gastrointestinal disorders (3 sources) Diarrhea, unspecified; Translations: [Diarrhea, unspecified type] Onset: 4 Episodic Other injuries and conditions due to external causes (2 sources) Choking; Translations: [Unspecified foreign body in larynx causing other injury, sequela] Episodic Other lower respiratory disease (4 sources) Wheezing; Translations: [Wheezing] Episodic Other lower respiratory disease (2 sources) Dyspnea; Translations: [Dyspnea, unspecified] 05-30-2022 Episodic Other nervous system disorders (4 sources) Paresthesia of lower extremity; Translations: [Anesthesia of skin] 10-04-2023 Episodic Other nervous system disorders (1 source) Anesthesia of skin; Translations: [Numbness and tingling of left lower extremity] Onset: 4 Episodic Other nervous system disorders (1 source) Paresthesia of skin; Translations: [Numbness and tingling of left lower extremity] Onset: 4 Episodic Other non-traumatic joint disorders (3 sources) Hip pain; Translations: [Pain in left hip] 09-12-2023 Episodic Other nutritional; endocrine; and metabolic disorders (1 source) Unintentional weight loss; Translations: [Abnormal weight loss] 03-12-2024 Episodic Other skin disorders (3 sources) Breast changes; Translations: [Changes in skin texture] 07-11-2023 Episodic Other upper respiratory disease (1 source) Pharyngeal dryness; Translations: [Other diseases of pharynx] Episodic Other upper respiratory disease (1 source) Disorder of the larynx; Translations: [Other diseases of larynx] Episodic Other upper respiratory disease (1 source) Edema of larynx; Translations: [Edema of larynx] Episodic Other upper respiratory disease (1 source) Hoarse; Translations: [Dysphonia] Episodic Other upper respiratory infections (1 source) Viral upper respiratory tract infection; Translations: [Acute upper respiratory infection, unspecified] Episodic Pneumonia (except that caused by tuberculosis or sexually transmitted disease) (4 sources) Infective pneumonia; Translations: [Pneumonia, unspecified organism] Episodic Residual codes; unclassified (1 source) History of right mastectomy; Translations: [Acquired absence of right breast and nipple] 05-03-2024 Episodic Residual codes; unclassified (1 source) Dependent edema; Translations: [Edema, unspecified] 06-11-2024 Episodic Residual codes; unclassified (1 source) Edema, unspecified; Translations: [Dependent edema] Onset: 5 Episodic Retinal detachments; defects; vascular occlusion; and retinopathy (1 source) Round hole of retina of right eye; Translations: [Round hole, right eye] Episodic Secondary malignancies (4 sources) Secondary malignant neoplasm of axillary lymph nodes; Translations: [Secondary and unspecified malignant neoplasm of axilla and upper limb lymph nodes] 05-02-2024 Chronic Secondary malignancies (1 source) Secondary and unspecified malignant neoplasm of axilla and upper limb lymph nodes; Translations: [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)] Onset: 5 Chronic Substance-related disorders (20 sources) Smoker; Translations: [Nicotine dependence, unspecified, uncomplicated] Onset: 1 Chronic Unclassified (1 source) Unknown / UNK(Unknown) Onset: 8 Unclassified (1 source) Lymphocytic colitis 05-01-2024 Unclassified (1 source) Radiotherapy On-treatment Visit Onset: 5 Past or Other Problems Problem Classification Problem Date Documented Da te Episodic/Chronic Abdominal pain (20 sources) Epigastric pain; Translations: [Epigastric pain] Onset: 12-26-2012 Resolved: 08-25-2021 12-26-2012 Episodic Appendicitis and other appendiceal conditions (2 sources) Acute appendicitis; Translations: [Unspecified acute appendicitis] Onset: 02-29-2024 01-17-2024 Episodic Blindness and vision defects (20 sources) Hypermetropia; Translations: [Hypermetropia, unspecified eye] Onset: 11-19-2014 Resolved: 08-25-2021 11-19-2014 Episodic Cardiac dysrhythmias (20 sources) Palpitations; Translations: [Palpitations] Onset: 05-21-2020 Resolved: 08-25-2021 05-21-2020 Episodic Nonmalignant breast conditions (20 sources) Breast lump; Translations: [Unspecified lump in unspecified breast] Onset: 06-04-2012 Resolved: 06-26-2015 06-26-2015 Episodic Other circulatory disease (20 sources) Elevated blood pressure; Translations: [Elevated blood-pressure reading, without diagnosis of hypertension] Onset: 09-29-2022 09-29-2022 Episodic Other circulatory disease (1 source) Elevated blood-pressure reading, without diagnosis of hypertension; Translations: [Elevated blood pressure reading] Onset: 09-29-2022 Episodic Other connective tissue disease (1 source) Pain in right upper arm; Translations: [Axillary pain, right] Onset: 08-02-2023 Episodic Other gastrointestinal disorders (20 sources) Pharyngeal dysphagia; Translations: [Dysphagia, pharyngeal phase] Onset: 05-21-2020 05-21-2020 Episodic Other lower respiratory disease (20 sources) Cough; Translations: [Cough] Onset: 05-21-2020 05-21-2020 Episodic Other non-traumatic joint disorders (1 source) Pain in left hip; Translations: [Acute hip pain, left] Onset: 09-12-2023 Episodic Other screening for suspected conditions (not mental disorders or infectious disease) (18 sources) Patient encounter status; Translations: [Encounter for screening for malignant neoplasm of colon] Onset: 03-21-2024 Episodic Other skin disorders (1 source) Rash and other nonspecific skin eruption Onset: 02-27-2017 Episodic Other skin disorders (20 sources) Eruption; Translations: [Rash and other nonspecific skin eruption] Onset: 05-21-2020 Resolved: 08-25-2021 05-21-2020 Episodic Other skin disorders (1 source) Changes in skin texture; Translations: [Breast skin changes] Onset: 08-02-2023 Episodic Spondylosis; intervertebral disc disorders; other back problems (20 sources) Disorder of left sciatic nerve; Translations: [Sciatica, left side] Onset: 09-12-2023 09-01-2023 Episodic Sprains and strains (20 sources) Lumbar sprain; Translations: [Sprain of ligaments of lumbar spine, initial encounter] Onset: 01-11-2019 Resolved: 05-21-2020 Episodic Unclassified (1 source) Patient encounter status 05-27-2024 Results Test Name Value Interpretation Reference Range Facility LOLA w/ Reflex Mult Confirmon 08-12-2024 LOLA-D See below TNP Normal [facility] Comment on above: Performed By: #### L 3100.5450, L501.6710, L100.0100, L500.4050 #### [facility] [address] [place], [place], [id number] CBC W/Diff, Automatedon 07-16 Absolute Lymph 0.94 X10 3/uL Normal 0.83-4.51 [facility] Comment on above: Performed By: #### L 3100.5450, L501.6710, L100.0100, L500.4050 #### [facility] [address] [place], [place], [id number] Absolute Neut 3.1 X10 3/uL Normal 2.0-7.7 [facility] Comment on above: Performed By: #### L 3100.5450, L501.6710, L100.0100, L500.4050 #### [facility] [address] [place], [address] Basophils/100 WBC (Bld) 0.2 % Normal 0-1 [facility] Comment on above: Performed By: #### L 3100.5450, L501.6710, L100.0100, L500.4050 #### [facility] [address] [place], [address] Eosinophils/100 WBC (Bld) 2.6 % Normal 0-5 [facility] Comment on above: Performed By: #### L 3100.5450, L501.6710, L100.0100, L500.4050 #### [facility] [address] [place], [address] Erythrocyte distribution width (RBC) [Ratio] 13.1 % Normal 11.6-14.6 [facility] Comment on above: Performed By: #### L 3100.5450, L501.6710, L100.0100, L500.4050 #### [facility] [address] [place], [address] Hematocrit (Bld) [Volume fraction] 38.0 % Normal 37-47 [facility] Comment on above: Performed By: #### L 3100.5450, L501.6710, L100.0100, L500.4050 #### [facility] [address] [place], [address] Hemoglobin (Bld) [Mass/Vol] 12.2 g/dL Normal 12.0-15.0 [facility] Comment on above: Performed By: #### L 3100.5450, L501.6710, L100.0100, L500.4050 #### [facility] [address] [place], [address] IG% 0.600 Normal 0.0-0.9 [facility] Comment on above: Result Comment: IG% - Immature Granulocytes (promyelocytes, myelocytes and metamyelocytes) > 1% indicates that a LEFT SHIFT is Present. Performed By: #### L 3100.5450, L501.6710, L100.0100, L500.4050 #### [facility] [address] [place], [address] Lymphocytes/100 WBC (Bld) 20.3 % Normal 19-41 [facility] Comment on above: Performed By: #### L 3100.5450, L501.6710, L100.0100, L500.4050 #### [facility] [address] [place], [address] MCH (RBC) [Entitic mass] 27.9 pg Normal 27.0-32.0 [facility] Comment on above: Performed By: #### L 3100.5450, L501.6710, L100.0100, L500.4050 #### [facility] [address] [place], [address] MCHC (RBC) [Mass/Vol] 32.1 g/dL Normal 32-36 [facility] Comment on above: Performed By: #### L 3100.5450, L501.6710, L100.0100, L500.4050 #### [facility] [address] [place], [address] MCV (RBC) [Entitic vol] 87.0 fL Normal 81-99 [facility] Comment on above: Performed By: #### L 3100.5450, L501.6710, L100.0100, L500.4050 #### [facility] [address] [place], [address] Monocytes/100 WBC (Bld) 9.5 % Normal 0-10 [facility] Comment on above: Performed By: #### L 3100.5450, L501.6710, L100.0100, L500.4050 #### [facility] [address] [place], [address] Neutrophils/100 WBC (Bld) 66.8 % Normal 47-70 [facility] Comment on above: Performed By: #### L 3100.5450, L501.6710, L100.0100, L500.4050 #### [facility] [address] [place], [address] Nucleated RBC (Bld) [#/Vol] 0 10*3/uL Normal 0-5 [facility] Comment on above: Performed By: #### L 3100.5450, L501.6710, L100.0100, L500.4050 #### [facility] [address] [place], [address] Platelet mean volume (Bld) [Entitic vol] 8.9 fL Normal 6.2-12.0 [facility] Comment on above: Performed By: #### L 3100.5450, L501.6710, L100.0100, L500.4050 #### [facility] [address] [place], [address] Platelets (Bld) [#/Vol] 253 10*3/uL Normal 150-450 [facility] Comment on above: Performed By: #### L 3100.5450, L501.6710, L100.0100, L500.4050 #### [facility] [address] [place], [address] RBC (Bld) [#/Vol] 4.37 10*6/uL Normal 4.2-5.[address] [facility] Comment on above: Performed By: #### L 3100.5450, L501.6710, L100.0100, L500.4050 #### [facility] [address] [place], [address] RDW SD 41.2 fl Normal 35.1-43.9 [facility] Comment on above: Performed By: #### L 3100.5450, L501.6710, L100.0100, L500.4050 #### [facility] [address] [place], [address] WBC (Bld) [#/Vol] 4.6 10*3/uL Normal 4.4-11.0 [facility] Comment on above: Performed By: #### L 3100.5450, L501.6710, L100.0100, L500.4050 #### [facility] [address] [place], [address] CRPon 08-12-2024 C-REACTIVE PROT 3.95 mg/L High 0.0-3.0 [facility] Comment on above: Performed By: #### L 500.2500, L100.0100 #### [facility] [address] [place], [address] Comprehensive Metabolic Prof ilon 08-12-2024 Albumin [Mass/Vol] 4.6 g/dL Normal 3.4-4.8 [facility] Comment on above: Performed By: #### L 3100.5450, L501.6710, L100.0100, L500.4050 #### [facility] [address] [place], [address] Albumin/Globulin [Mass ratio] 1.6 {ratio} Normal 0.9-2.4 [facility] Comment on above: Performed By: #### L 3100.5450, L501.6710, L100.0100, L500.4050 #### [facility] [address] [place], [address] ALK PHOS 83 U/L Normal 35-104 [facility] Comment on above: Performed By: #### L 3100.5450, L501.6710, L100.0100, L500.4050 #### [facility] [address] [place], [address] ALT [Catalytic activity/Vol] 23 U/L Normal <=34 [facility] Comment on above: Performed By: #### L 3100.5450, L501.6710, L100.0100, L500.4050 #### [facility] [address] [place], [address] AST [Catalytic activity/Vol] 36 U/L High <=31 [facility] Comment on above: Performed By: #### L 3100.5450, L501.6710, L100.0100, L500.4050 #### [facility] [address] [place], [address] Bilirubin [Mass/Vol] 0.24 mg/dL Normal 0.00-1.30 [facility] Comment on above: Performed By: #### L 3100.5450, L501.6710, L100.0100, L500.4050 #### [facility] [address] [place], [address] BUN/CRE 15.0 RATIO Normal 10-20 [facility] Comment on above: Performed By: #### L 3100.5450, L501.6710, L100.0100, L500.4050 #### [facility] [address] [place], [address] Calcium [Mass/Vol] 10.1 mg/dL Normal 7.6-11.0 [facility] Comment on above: Performed By: #### L 3100.5450, L501.6710, L100.0100, L500.4050 #### [facility] [address] [place], [address] Chloride [Moles/Vol] 104 mmol/L Normal 98-108 [facility] Comment on above: Performed By: #### L 3100.5450, L501.6710, L100.0100, L500.4050 #### [facility] [address] [place], [address] CO2 [Moles/Vol] 25.1 mmol/L Normal 21.0-32.0 [facility] Comment on above: Performed By: #### L 3100.5450, L501.6710, L100.0100, L500.4050 #### [facility] [address] [place], [address] Creatinine [Mass/Vol] 0.93 mg/dL Normal 0.70-1.20 [facility] Comment on above: Performed By: #### L 3100.5450, L501.6710, L100.0100, L500.4050 #### [facility] [address] [place], [address] GAP 12 Normal 5-15 [facility] Comment on above: Performed By: #### L 3100.5450, L501.6710, L100.0100, L500.4050 #### [facility] [address] [place], [address] GFR/1.73 sq M.predicted among non-blacks MDRD (S/P/Bld) [Vol rate/Area] 68 mL/min/{1.73_m2} Normal >60 [facility] Comment on above: Result Comment: mL/m in/1.73m2 CKD-EPI Creatinine Equation (2020) Performed By: #### L 3100.5450, L501.6710, L100.0100, L500.4050 #### [facility] [address] [place], [address] Globulin (S) [Mass/Vol] 2.9 g/dL Normal 2.2-4.2 [facility] Comment on above: Performed By: #### L 3100.5450, L501.6710, L100.0100, L500.4050 #### [facility] [address] [place], [address] Glucose [Mass/Vol] 84 mg/dL Normal 70-99 [facility] Comment on above: Performed By: #### L 3100.5450, L501.6710, L100.0100, L500.4050 #### [facility] [address] [place], [address] Potassium [Moles/Vol] 3.6 mmol/L Normal 3.3-5.1 [facility] Comment on above: Performed By: #### L 3100.5450, L501.6710, L100.0100, L500.4050 #### [facility] [address] [place], [address] Sodium [Moles/Vol] 142 mmol/L Normal 133-145 [facility] Comment on above: Performed By: #### L 3100.5450, L501.6710, L100.0100, L500.4050 #### [facility] [address] [place], [address] T PROT 7.5 g/dL Normal 5.9-8.4 [facility] Comment on above: Performed By: #### L 3100.5450, L501.6710, L100.0100, L500.4050 #### [facility] [address] [place], [address] Urea nitrogen [Mass/Vol] 14 mg/dL Normal 4-19 [facility] Comment on above: Performed By: #### L 3100.5450, L501.6710, L100.0100, L500.4050 #### [facility] [address] [place], [address] Gastroenterology Visit Repor ton 08-12-2024 Gastroenterology Visit Report [facility] [address] [place] [address] OFFICE VISIT Date of Service: 08/12/24 MR#: [id number] Acct: [id number] Name: SHAKIRA FRANKLIN Rep #: [id number] : 1960 Provider: RITA roblero Age/Sex: 63/F Location: [facility] [email or web address] Status: Signed Intake Vital Signs 01/03/24 00:37 Height 5 ft 6 in Intake Visit Reasons: CHRONIC DIARRHEA Allergies exemestane (From Aromasin) Allergy (Intermediate, Verified 08/12/24 13:33) Diarrhea anastrozole (From Arimidex) Allergy (Verified 08/12/24 13:33) Unknown letrozole Allergy (Verified 08/12/24 13:33) Unknown tamoxifen Allergy (Verified 08/12/24 13:33) Unknown Medications ???Medication ???Instructions ???Recorded ???Confirmed ???Type biotin 5 mg capsule 5 mg PO QDAY 01/31/24 08/12/24 His tory meloxicam 15 mg tablet 15 mg PO QDAY 01/31/24 08/12/24 Hi story multivitamin 1 tab PO QAM 01/31/24 08/12/24 His tory colestipol 5 gram oral granules 5 g PO QDAY 08/12/24 08/12/24 Hist ory loperamide 2 mg capsule (Imodium 2 mg PO Q6H PRN 08/12/24 08/12/24 History A-D) methocarbamol 500 mg tablet 750 mg PO TID 08/12/24 08/12/24 Hi story Have you fallen in the past year?: No Nurse's Note: Has had diarrhea and needed to wear diapers. PFSH Medical History Kidney stone Carpal tunnel syndrome Seasonal allergies Hx of gastritis Leukocytosis History of colitis Abdominal pain Acute appendicitis GERD (gastroesophageal reflux disease) COPD (chronic obstructive pulmonary disease) Breast CA Surgical History S/P appendectomy H/O total hysterectomy Hx of mastectomy Family History Sister Colon cancer Anemia Father Anemia Myocardial infarction Father Bowel disease Heart disease Social History Smoking Status: Former smoker quit date: 05/14/21 alcohol intake: current substance use type: does not use HPI HPI Details: SHAKIRA FRANKLIN, is a 63 F who presents to the office today for establishment with [facility] regarding concerns for diarrhea. She reports having recently restarted chemotherapy for breast cancer on 07.25.24 and she states that her watery diarrhea started pouring out of me 5 days later. Maybe it's the chemo, maybe it's something else. That's why sent me here. She reports associated fatigue and feelings of being washed out. Her last colonoscopy was about 12 years ago by , but she has had multiple negative Cologuard testings. She states that her diarrhea keeps her awake most nights and if she does fall asleep, it will wake her up with minimal warning. She has to wear a protective brief just in case. She has been taking colestipol 5gm daily prescribed by her PCP. She still has her gallbladder, but has found that colestipol really slowed her diarrhea down the first round of chemo so they're repeating that in addition to seeking out GI consult. She has well water to cook and shower with, but drinks bottled water. She denies eating unwashed fruit, being exposed to livestock, or known ill persons. She denies difficulty chewing and swallowing, cough, throat clearing, sinus drainage, heartburn, reflux, emesis, abdominal pain, bloating, constipation, hematochezia, and melena. She does admit to occasional episodes of nausea unrelated to eating. ROS Const Constitutional: Positive for fatigue; No chills, fever(s) or weight change Eyes Eyes: No change in vision ENT ENT: No abnormal hearing or difficulty swallowing Resp Respiratory: No cough Cardio Cardiology: No chest pain at rest, chest pain with exertion or leg pain with exertion Gastro GI: Positive for diarrhea; No abdominal pain, belching, bloating, change in bowel habits, change in stool character, coffee ground emesis, constipation, cramping, heartburn, difficulty swallowing, feeling full early, ex cessive flatus, incontinent of stools, Vomiting blood/hematemesis, Blood in stool, loose stools, Black,tarry stools, nausea/dyspepsia, pain with swallowing, vomiting or other Musc Musculoskeletal: No joint pain or leg pain with exertion Skin Skin: No yellowing of the eye or itchy eyes Neuro Neurology: No abnormal hearing Psych Psychiatric: No anxiety and No depression Endo Endocrine: Positive for fatigue; No weight change Aller/Imm Allergy/Immunologic: No itchy eyes Jonathan/Lymp Hematologic/Lymphatic: No easy bleeding or easy bruising Exam Const General: cooperative, healthy appearing, comfortable, no acute distress and well groomed Nutritional Appearance: average body habitus Orientation: alert and oriented x3 HENMT Head: normal to ins (more content not included)... Normal [facility] CNCNPATEDon 07-10-2024 CNCNPATED Normal [facility] CNOVon 07-10-2024 CNOV Normal [facility] CNPNon 07-10-2024 CNPN Normal [facility] CNCOon 07-03-2024 CNCO Letter Text Normal [facility] CNOVon 07-02-2024 CNOV Normal [facility] CNOVSPon 06-26-2024 CNOVSP Normal [facility] CNOVon 06-25-2024 CNOV Normal [facility] CNCOon 06-19-2024 CNCO Letter Text Normal [facility] CNOVon 06-18-2024 CNOV Normal [facility] CNOVon 06-11-2024 CNOV Normal [facility] CNOVon 06-04-2024 CNOV Normal [facility] CNOVon 05-28-2024 CNOV Normal [facility] CNPNon 05-27-2024 CNPN Normal [facility] CNNURSEon 05-20-2024 CNNURSE Normal [facility] CNPNon 05-09-2024 CNPN Normal [facility] CNOVon 05-08-2024 CNOV Normal [facility] Office Visiton 05-03-2024 Follow-up visit [id number] Chelsie Franklin 1960 F Date Provider Department Center 05/03/2024 [id number] [place] [facility] None Family History Problem Relation Age of Onset Colon cancer Father Skin cancer Father Lymphoma Sister Cancer Mother's Sister Throat cancer Mother's Brother Lung cancer Mother's Brother Cancer Father's Sister Leukemia Father's Brother Cancer Father's Brother Cancer Father's Brother Brain cancer Paternal Cousin Cancer Paternal Cousin Stomach cancer Paternal Cousin Family Status - Relation Status Age at Father Sister Mother's Sister Mother's Brother Mother's Brother Father's Sister Alive Father's Brother Father's Brother Father's Brother Paternal Cousin Paternal Cousin Paternal Cousin Alive Level of Service:56851 SC OFFICE/OUTPATIENT ESTABLISHED LOW MDM 20 MIN Reason for Visit and Comments: Follow-up [865650] - Treatment planning Progress Noteon 05-03-2024 Progress Note Chief Complaint Patient presents with Follow-up Treatment planning History of Present Illness: Shkaira Franklin is a 63 y.o. female here for discussion of results- recurrent RIGHT breast cancer ( axillary recurrence) Still has drain in place Results of all testing reviewed and given to patient Cancer Staging Recurrent breast cancer, right (HCC) Staging form: Breast, AJCC 8th Edition - Clinical stage from 04/10/2024: Stage IB (rcT0, cN1, cM0, G2, ER+, SC+, HER2-) - Signed by Radha Terry MD on 04/10/2024 She c/o 7 mos history of right axillary pain and numbness- had nerve studies- negative Pain to better with injection so felt to be neuroma right axilla Also she wanted symmetry procedure so taken to surgery by plastic service for symmetry ( new implant left) and excision neuroma right- Dr. Cazares 04/02/24 5 mos history of left hip pain Pathology from right axilla 04/04/24 with metastatic ductal carcinoma in 1/2 LN ( ITC and right axillary neuroma was invasive ductal carcinoma 1.2 cm and extends to all the margins ER+, SC+, HER2 negative History of right breast cancer in [address] Mackey in [place]- postmastectomy radiation and AI therapy recommended Metastatic workup including CT neck/chest/abdomen/pelvi s and bone scan negative for distant disease Genetic testing done 04/17/24: [facility] NEGATIVE History of Right breast invasive ductal carcinoma diagnosed on 05/30/2012 at [facility] Treatments include: Surgery- Right Skin Sparing Mastectomy with immediate implant replacement and SLNB on 07/26/2012- Dr. Whitaker (1/2 LN + 6 mm with focal extranodal extension ) Axillary LN Dissection- 07/31/2012-Dr. Whitakre (0/4 LN) Chemotherapy- no-Oncotype Recurrence score of 12 Radiation therapy- no Endocrine therapy- yes 1) Exemestane 10/2012-05/2013. Stopped due to diarrhea. 2) Letrozole 08/2013-08/2014. Stopped due to angioedema of the lips. 3) Tamoxifen. 09/2014-01/2015. Stopped due to recurrent angioedema. 4) Anastrozole. 5) Raloxifene started 06/2015. Stopped due to diarrhea. Last mammogram date 07/03/2023-LEFT SCREENING. BIRADS 2, 08/02/2023- RIGHT MAMMOGRAM AND ULTRASOUND-08/02/2023. BIRADS 1 Last DEXA 01/22/2024. Results: Normal. Genetics: negative 2024 Genetics: 04/28/2024-[employer] BRCA 1/2 Analyses with [employer]: NEGATIVE Pathology: Addendum 2 C. RIGHT AXILLARY NEUROMA: - INVASIVE DUCTAL CARCINOMA, GRADE 2 Comment: There is no surrounding lymph node tissue; however, the possibility that this could represent an entirely replaced lymph node cannot be excluded. The tumor is tracking along a nerve. Addendum electronically signed by Ty Garcia MD on 04/10/2024 at 1002 Addendum Additional ancillary study: LAI-3: Positive Addendum electronically signed by Ty Garcia MD on 04/05/2024 at 1026 Final Diagnosis A. LEFT BREAST TISSUE, EXCISION: - BENIGN BREAST TISSUE WITH FOCAL APOCRINE METAPLASIA AND UNREMARKABLE SKIN B. LYMPH NODES, RIGHT AXILLARY, EXCISION: - METASTATIC DUCTAL CARCINOMA (ISOLATED TUMOR CELLS) IN ONE OUT OF TWO LYMPH NODES (1/2) Ancillary studies: Pancytokeratin: Positive for ITCs C. 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 The patient's history of breast cancer is noted. The tumor measures 1.2 cm in greatest dimension and extends to all the peripheral cauterized aspects of the specimen. The clinician was notified of the above diagnosis on 04/04/2024. This part of this case was reviewed by Dr. Gonzalez who concurs with the above interpretation. Ancillary studies: Pancytokeratin: Positive E-cadherin: Positive SOX10: Negative Mart1: Negative D. LEFT BREAST IMPLANT, REMOVAL: - SEE GROSS DESCRIPTION BELOW (GROSS ONLY) at 1506 Synoptic Checklist Breast Biomarker Reporting Template Protocol posted: 3BREAST BIOMARKER REPORTING TEMPLATE - All Specimens Test(s) Performed Estrogen Receptor (ER) Status Positive (greater than 10% of cells demonstrate nuclear positivity) Percentage of Cells with Nuclear Positivity 91-100% Average Intensity of Staining Strong Test Type Food and Drug Administration (FDA) cleared (test / vendor): [employer] Primary Antibody SP1 Test(s) Performed Progesterone Receptor (PgR) Status Positive Percentage of Cells with Nuclear Positivity 71-80% Average Intensity of Staining Strong Test Type Food and Drug Administration (FDA) cleared (test / vendor): [employer] Primary Antibody 1E2 Test(s) Performed HER2 by Immunohistochemistry Negative (Score 1+) Test Type Food and Drug Administration (FDA) cleared (test / vendor): [employer] Primary Antibody 4B5 Cold Ischemia and Fixation Times Cannot be determined: Not fixation time recorded . Clinical Information Benign neoplasm of peripher (more content not included)... Normal [facility] CNOVon 05-01-2024 CNOV [facility] CNOVSPon 05-01-2024 CNOVSP [facility] 36on 04-29-2024 36 Called pt with Resul ts of genetics. Scanned into media and routed to [facility] providers. Normal [facility] 36 Spoke to patient regarding genetic testing results which were negative, meaning there were no mutations or VUS in the 36 genes analyzed. Reminded of follow up appointment on 05/03/2024 Patient agrees with the plan and verbalizes understanding. Copy of report mailed to patient. Sent results via [employer] as well. Scanned into media and routed to [facility] providers. 36on 04-26-2024 36 Called patient with results of bone scan. Per [employer] portal, estimated date results of BRCA panel will be back is 04/28/2024. Patient aware we will call with these results as soon as they are available. She sees Dr. Terry 05/03/2024. She verbalized understanding agrees with plan. Normal [facility] 36 Pt had other testing in the hospital today. She is anxiously awaiting results on her genetic test that she had done on 04/17/24. She stopped at my window to ask if we have received the results. I checked her media and did not find the results. Berny was in a room with another patient. I called Bonnie who looked up the pt on the [employer] website. Pt was notified (by the information that Bonnie found on [employer]) that the results are currently pending and that they expected by Monday. Pt was satisfied by this news but also a bit worried. She stated she sees the oncologist on Monday. Normal [facility] NM Whole body Bone Viewson 0 04-26-2024 Low likelihood ratio for metastatic disease to bone. Statistically benign findings only , fairly typical for degenerative changes with reasonable correlation to cross-sectional imaging. Report Dictated on Electronically Signed By: Jevon Win MD Electronically Signed Date/Time: 04/26/2024 2:17 PM EDT [facility] Patient Name: SHAKIRA FRANKLIN : 1960 Exam Date/Time: 04/26/2024 09:10 Procedure: NM BONE WHOLE BODY Ordering Provider: TERRY VICTORIA Reason For Exam: Breast cancer, invasive, stage IV, pre-therapy or re-staging HISTORY: Breast cancer staging Delayed whole body imaging was performed in multiple projections following the intravenous administration of 23 mCi of technetium-99m MDP. Comparisons available: CT 04/22/2024 FINDINGS: Planar whole body imaging was performed in multiple projections. Mild increased uptake in the spine and joints is visualized, fairly typical for degenerative change. Some degenerative changes are evident on comparison imaging. No suspicious foci of moderate or marked increased uptake identified. [facility] Jevon Win MD - 04/26/2024 Patient Name: SHAKIRA FRANKLIN : 1960 Exam Date/Time: 04/26/2024 09:10 Procedure: NM BONE WHOLE BODY Ordering Provider: TERRY VICTORIA Reason For Exam: Breast cancer, invasive, stage IV, pre-therapy or re-staging HISTORY: Breast cancer staging Delayed whole body imaging was performed in multiple projections following the intravenous administration of 23 mCi of technetium-99m MDP. Comparisons available: CT 04/22/2024 FINDINGS: Planar whole body imaging was performed in multiple projections. Mild increased uptake in the spine and joints is visualized, fairly typical for degenerative change. Some degenerative changes are evident on comparison imaging. No suspicious foci of moderate or marked increased uptake identified. IMPRESSION: Low likelihood ratio for metastatic disease to bone. Statistically benign findings only , fairly typical for degenerative changes with reasonable correlation to cross-sectional imaging. Report Dictated on Electronically Signed By: Jevon Win MD Electronically Signed Date/Time: 04/26/2024 2:17 PM EDT [facility] Radiology Study observation (narrative) [facility] [place] Whole body Bone ViewsOrde red By: Jevon Win on 04-26-2024 [facility] Work Phone: [phone] 04-23-2024 36 Called pt back to le t her know that [facility] will return her call once both test have been read. Pt was understanding and will wait. Normal [facility] 36 Pt left a message requesting the result from her imaging yesterday. The chest abdomen has been read but were waiting on the neck. Should I call pt to let her know that [facility] will call once both tests have been read ? Normal [facility] CT CHEST ABDOMEN PELVIS W CO NTRASTon 04-23-2024 CT CHEST ABDOMEN PELVIS W CONTRAST Patient Name: SHAKIRA FRANKLIN : 1960 Exam Date/Time: 04/22/2024 14:40 Procedure: CT CHEST ABDOMEN PELVIS W CONTRAST Ordering Provider: TERRY VICTORIA Reason For Exam: Breast cancer, invasive, stage IV, pre-therapy or re-staging EXAM: CT Chest, Abdomen and Pelvis With Intravenous Contrast CLINICAL INDICATION: Breast cancer, invasive, stage IV, pre-therapy or re-staging TECHNIQUE: Axial computed tomography images of the chest, abdomen and pelvis with intravenous contrast. This CT exam was performed using one or more of the following dose reduction techniques: automated exposure control, adjustment of the mA and/or kV according to patient size, and/or use of iterative reconstruction technique. COMPARISON: MRI from 04/17/2024. FINDINGS: CHEST: LUNGS: Moderate emphysematous changes in both lungs. Biapical scarring. No mass. No consolidation. PLEURAL SPACE: Unremarkable. No significant effusion. No pneumothorax. HEART: Coronary artery calcifications are present. No cardiomegaly. No significant pericardial effusion. ABDOMEN: LIVER: Mild extrahepatic biliary dilation with the upper common duct measuring up to 9 mm in diameter. No intrahepatic biliary dilation. GALLBLADDER AND BILE DUCTS: See above. PANCREAS: Unremarkable. No ductal dilation. No mass. SPLEEN: Unremarkable. No splenomegaly. ADRENALS: Unremarkable. No mass. KIDNEYS AND URETERS: Unremarkable. No hydronephrosis. No solid mass. STOMACH AND BOWEL: Diverticuli are noted throughout the hepatic flexure and sigmoid colon. No stenotic lesion, mucosal thickening or adjacent fat stranding is noted to suggest diverticulitis. No obstruction. PELVIS: APPENDIX: The appendix is not identified, however there is no pericecal fat stranding. BLADDER: Unremarkable. No mass. REPRODUCTIVE: Status post hysterectomy. CHEST, ABDOMEN and PELVIS: INTRAPERITONEAL SPACE: See below. BONES/JOINTS: Mild degenerative changes are present in the visualized spine. No acute fracture. SOFT TISSUES: Status post bilateral mastectomies and bilateral breast implants. Surgical clips are present in the right axilla. A surgical drain is present in the right axilla. The previously seen right axillary fluid collection has resolved. VASCULATURE: Ectatic ascending thoracic aorta measuring 3.9 cm. Atherosclerotic disease. LYMPH NODES: Unremarkable. No enlarged lymph nodes. IMPRESSION: 1. Postsurgical changes in the breasts and right axilla. Resolution of the previously seen right axillary fluid collection with a drainage catheter present. 2. No evidence of metastatic disease to the chest, abdomen or pelvis. 3. Mild extrahepatic biliary dilation with the upper common duct measuring up to 9 mm in diameter, indeterminate and may be due to senescent change but if there is any clinical evidence of biliary obstruction, MRCP or ERCP could be obtained. 4. Ectatic ascending thoracic aorta measuring 3.9 cm. 5. Colonic diverticulosis. Report Dictated on Electronically Signed By: Lemuel Cason MD Electronically Signed Date/Time: 04/23/2024 10:24 AM EDT Breast cancer, recent Rt sided breast reconstruction, neck mass lympadenopathy Normal [facility] CT SOFT TISSUE NECK W IV CON TRASTon 04-23-2024 CT SOFT TISSUE NECK W IV CONTRAST Patient Name: SHAKIRA FRANKLIN : 1960 [facility]#: [id number] Exam Date/Time: 04/22/2024 14:40 Procedure: CT SOFT TISSUE NECK W IV CONTRAST Ordering Provider: TERRY VICTORIA Reason For Exam: Neck mass, nonpulsatile EXAMINATION: CT SOFT TISSUE NECK W IV CONTRAST CLINICAL HISTORY: History of breast cancer. Neck mass and lymphadenopathy. COMPARISON: None TECHNIQUE: Thin axial images were obtained through the neck with intravenous contrast. 2D sagittal and coronal reconstructions were obtained from the axial data. Dose reduction was employed with automated exposure control. FINDINGS: Aerodigestive tract: The nasal cavities, naso-oropharynx, pharyngeal mucosal space, laryngeal structures and imaged infraglottic trachea are within normal limits. Lymph nodes: No pathologically enlarged, necrotic, or otherwise abnormal lymph nodes. Major salivary glands: Normal. Thyroid gland: Normal. Carotid space: Patent bilateral extracranial carotid and jugular systems. Paranasal sinuses, middle ears, mastoids: Left maxillary sinus opacification most likely due to chronic mucosal thickening. Otherwise clear. Brain and orbits: Probable chronic small vessel ischemic changes in the supratentorial white matter bilaterally. No visualized enhancing lesions. Bones: No fracture or aggressive osseous lesion. Lungs: Emphysematous changes bilaterally. Chest CT is separately reported. IMPRESSION: No neck mass or cervical lymphadenopathy. Report Dictated on Electronically Signed By: Khai Morales MD Electronically Signed Date/Time: 04/23/2024 2:01 PM EDT Breast cancer, recent Rt sided breast reconstruction, neck mass lympadenopathy Normal [facility] MR Breast - bilateral WO and W contrast IVOrdered By: Amparo Castro on 04-17-2024 Interpretation and review of laboratory results Abnormal [facility] Work Phone: [employer] Work Phone: MR Breast - bilateral WO and W contrast Josie 04-17-2024 Large rim-enhancing fluid collection in the right axillary tail most likely related to a postoperative seroma. Residual disease cannot be excluded. No definite lymphadenopathy is seen. Bilateral postsurgical changes. No MRI evidence of malignancy in left breast. ASSESSMENT: Category 6 Known biopsy proven malignancy RECOMMENDATION: Follow Surgical Treatment Plan Right COMMENTS: Report Dictated on Electronically Signed By: Amparo Castro MD Electronically Signed Date/Time: 04/17/2024 1:34 PM [facility] 1960 [id number] Exam Date/Time: 04/17/2024 06:52 Procedure: BI MR BREAST BILATERAL W AND WO CONTRAST W CAD Ordering Provider: TERRY VICTORIA Reason For Exam: recurrent breast cancer left axilla MRI TECHNIQUE: Clinical Indication: Breast MRI Diagnostic. Clinical Indication: Recurrent right breast cancer. Contrast: Vueway 6.5 mL IV. Bilateral breast MRI was performed with a dedicated breast coil. Fat saturated T2 weighted and T1 weighted axial images were obtained of both breasts. Dynamic pre-and post contrast axial image sets were obtained of both breasts after intravenous injection of gadolinium based contrast. Delayed post contrast sagittal images were also obtained. Subtraction images and MIP images were generated. Interpretation was made in conjunction with CAD. The patient's prior imaging was reviewed. FINDINGS: There is mild bilateral background enhancement. Right Breast: There has been a right mastectomy with implant reconstruction. A right breast implant is in place with a small amount scattered areas of yeison-implant fluid. The patient is status post excision of a right axillary mass on 04/04/2024 which was found to represent an invasive carcinoma. There are no obvious enhancing masses or nonmass enhancement in the subcutaneous soft tissue of the right breast. In the axillary tail of the right breast, there is a large fluid collection with rim enhancement measuring approximately 6.7 x 5.7 cm. Findings likely represent a large postoperative seroma. While rim enhancement is likely related to postoperative changes, residual disease cannot be excluded. Postoperative changes are noted within the skin and underlying soft tissue. There is increased signal within the soft tissues along the right lateral chest wall compatible with edema. Left Breast: There is a left breast implant with small amount of periimplant fluid mostly posteriorly and inferiorly. There are postsurgical changes present along the inferior lateral aspect of the left breast There is no suspicious mass or non-mass enhancement in the left breast. Other: No axillary or internal mammary lymphadenopathy is appreciated. [facility] Amparo Castro MD - 04/17/2024 Patient Name: SHAKIRA FRANKLIN : 1960 Exam Date/Time: 04/17/2024 06:52 Procedure: BI MR BREAST BILATERAL W AND WO CONTRAST W CAD Ordering Provider: TERRY VICTORIA Reason For Exam: recurrent breast cancer left axilla MRI TECHNIQUE: Clinical Indication: Breast MRI Diagnostic. Clinical Indication: Recurrent right breast cancer. Contrast: Vueway 6.5 mL IV. Bilateral breast MRI was performed with a dedicated breast coil. Fat saturated T2 weighted and T1 weighted axial images were obtained of both breasts. Dynamic pre-and post contrast axial image sets were obtained of both breasts after intravenous injection of gadolinium based contrast. Delayed post contrast sagittal images were also obtained. Subtraction images and MIP images were generated. Interpretation was made in conjunction with CAD. The patient's prior imaging was reviewed. FINDINGS: There is mild bilateral background enhancement. Right Breast: There has been a right mastectomy with implant reconstruction. A right breast implant is in place with a small amount scattered areas of yeison-implant fluid. The patient is status post excision of a right axillary mass on 04/04/2024 which was found to represent an invasive carcinoma. There are no obvious enhancing masses or nonmass enhancement in the subcutaneous soft tissue of the right breast. In the axillary tail of the right breast, there is a large fluid collection with rim enhancement measuring approximately 6.7 x 5.7 cm. Findings likely represent a large postoperative seroma. While rim enhancement is likely related to postoperative changes, residual disease cannot be excluded. Postoperative changes are noted within the skin and underlying soft tissue. There is increased signal within the soft tissues along the right lateral chest wall compatible with edema. Left Breast: There is a left breast implant with small amount of periimplant fluid mostly posteriorly and inferiorly. There are postsurgical changes present along the inferior lateral aspect of the left breast There is no suspicious mass or non-mass enhancement in the left breast. Other: No axillary or internal mammary lymphadenopathy is appreciated. IMPRESSION: Large rim-enhancing fluid collection in the right axillary tail most likely related to a postoperative seroma. Residual disease cannot be excluded. No definite lymphadenopathy is seen. Bilateral postsurgical changes. No MRI evidence of malignancy in left breast. ASSESSMENT: Category 6 Known biopsy proven malignancy RECOMMENDATION: Follow Surgical Treatment Plan Right COMMENTS: Report Dictated on Electronically Signed By: Amparo Castro MD Electronically Signed Date/Time: 04/17/2024 1:34 PM EST [facility] Radiology Study observation (narrative) [facility] Office Visiton 04-17-2024 Follow-up visit [id number] Chelsie Franklin 1960 F Date Provider Department Center 04/17/2024 [id number] None Family History Problem Relation Age of Onset Colon cancer Father Skin cancer Father Lymphoma Sister Cancer Mother's Sister Throat cancer Mother's Brother Lung cancer Mother's Brother Cancer Father's Sister Leukemia Father's Brother Cancer Father's Brother Cancer Father's Brother Brain cancer Paternal Cousin Cancer Paternal Cousin Stomach cancer Paternal Cousin Family Status - Relation Status Age at Father Sister Mother's Sister Mother's Brother Mother's Brother Father's Sister Alive Father's Brother Father's Brother Father's Brother Paternal Cousin Paternal Cousin Paternal Cousin Alive Level of Service:23256 SC OFFICE/OUTPATIENT ESTABLISHED MOD MDM 30 MIN Reason for Visit and Comments: Follow-up [525807] - Breast pain on both breast. Pain 07/23. Normal [facility] Progress Noteon 04-17-2024 Progress Note Berny Johnson ACID TREATER 04/17/2024 at 9:39 AM Breast Center [facility] [address] [facility] [address] [facility] [address] Dept: [phone] Dept Loc: [phone] Shakira Noemi is a 63 y.o. F here for genetic counseling. HPI Breast History: 1. Patient is here for genetic counseling. 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 Cazares. He investigated her right axillary pain further and removed a neuroma and found a + lymph node for cancer. She now has right breast cancer reoccurrence form 2012. Her daughter is present for her OV today. 2. Family history of breast cancer: Self age 54, age 63. Family history of ovarian, pancreatic, or prostate cancer: none Family history of Babin-syndrome related cancers: Father colon cancer and skin cancer age 86 Prior personal or family history of genetic testing:none She does meet NCCN criteria for genetic testing for hereditary cancer. Risk Factors: Menarche: age 13 Age of first : age 14, Menopause: age 29 with hysterectomy does have both ovaries Weight: BMI 24.69 kg/m2 Smoking: former o.5 ppd cigarette smoker x 20 years quit in 2019 ETOH: 1 drink per week Family History of Cancer and Cancer Risk Assessment : Self breast cancer age 52 and age 65 Father colon cancer age 86 Sister lymphoma Maternal aunt unknown cancer Maternal uncle lung cancer Maternal uncle throat cancer Paternal aunt unknown cancer Paternal uncle unknown cancer Paternal uncle unknown cancer Paternal uncle leukemia Paternal cousin (male) unknown cancer The patient's medical history, reproductive history, breast history and family history have been reviewed. Using [employer] software, the family genogram has been generated and reviewed. A complete risk assessment has been performed using validated statistical models. The estimated risk of a BRCA 1/2 mutation predicted by BRCAPRO is 2.42 %. The estimated risk of a mutation in an HNPCC related gene is 0.42 %. The patient does meet NCCN criteria for genetic testing for hereditary cancer. Medical History includes: has a past medical history of Breast cancer (HCC) (2012), Breast cancer (HCC) (03/2024), MVP (mitral valve prolapse), PVC's (premature ventricular contractions), and Rheumatic fever. Surgical History includes : Past Surgical History: Procedure Laterality Date APPENDECTOMY BREAST BIOPSY Right BREAST SURGERY Right LND BREAST SURGERY Right removal of implant, debridement, skin graft and fat transfer COLONOSCOPY EYE SURGERY Right excision benign tumor HYSTERECTOMY 1989 still have ovaries MASTECTOMY Right 07/2012 with sentinel lymph nose biopsy- Dr. Whitaker ORAL SURGERY, PROCEDURE (HISTORICAL) REVISION OF RECONSTRUCTED BREAST (HISTORICAL) N/A 04/02/2024 REVISION LEFT BREAST RECONSTRUCTION WITH IMPLANT EXCHANGE, ALLODERM, MASTOPEXY, EXPLORATION OF RIGHT AXILLA WITH EXCISION OF NEUROMA AND TARGETED MUSCLE REINNERVATION TONSILLECTOMY TUBAL LIGATION WISDOM TOOTH EXTRACTION Medications include: Current Outpatient Medications Medication Sig Dispense Refill acetaminophen (Tylenol) 500 MG tablet Take 1,000 mg by mouth every 6 hours as needed for mild pain (1-3). cholestyramine (Questran) 4 g packet Take 4 g by mouth 3 times daily (with meals). cyclobenzaprine (Flexeril) 10 MG tablet Take 10 mg by mouth every 8 hours as needed. diphenoxylate-atropine (Lomotil) 2.5-0.025 MG tablet Take 1 tablet by mouth every 6 hours as needed. DULoxetine (Cymbalta) [address] capsule TAKE 1 capsule by mouth once a day for 30 days take 30 mg for one week, the may increase to 60 mg a day meloxicam (Mobic) 15 MG tablet daily with supper. methocarbamol (Robaxin) 500 MG tablet Take 500 mg by mouth 3 times daily as needed for muscle spasms. naproxen (Naprosyn) 500 MG tablet Take 500 mg by mouth. ondansetron (Zofran) 4 MG tablet Take 1 tablet (4 mg) by mouth Daily as needed for nausea or vomiting. 20 tablet 0 No current facility-administered medications for this visit. Allergies include: Allergies as of 04/17/2024 - Reviewed 04/17/2024 Allergen Reaction Noted Anastrozole Rash and Unknown 02/18/2015 Exemestane Diarrhea and Unknown 07/10/2013 Tamoxifen Rash and Unknown 02/18/2015 Letrozole Rash and Unknown 03/06/2017 Review of Systems Constitutional: Negative. Negative for chills, diaphoresis and fever. Respiratory: Negative. Cardiovascular: Negative. Gastrointestinal: Negative. Negative for constipation, diarrhea, nausea and vomiting. Genitourinary: Negative. Musculoskeletal: Negative. Negative for arthralgias and joint swelling. (more content not included)... Normal [facility] Progress Note Genetics paperwork signes. left AC prepped with alcohol after tourniquet applied. #23F butterfly needle used to access vein on first attempt. 2 vials of blood were drawn. Tourniquet removed and needle retracted. Direct pressure applied to venipuncture site until bleeding stopped. Band aid applied to site. Patient tolerated procedure without problems. Normal [facility] Progress Note Pls call pt with res ults MRI showed seroma ( fluid collection right axilla)- needs FU with Dr. Cazares No obvious other masses Waiting for additional studies to return Normal [facility] CNOVon 04-16-2024 CNOV Normal [facility] CNOVSPon 04-16-2024 CNOVSP Normal [facility] Progress Noteon 04-12-2024 Progress Note BREAST TUMOR BOARD RECOMMENDATIONS Consensus Recommendation Summary Privileged Information TUMOR BOARD CLINICAL SUMMARY Basic Demographic Information Shakira Franklin 1960 63 y.o. [id number] Presentation Date and Presenting Physician Date of presentation (mm/dd/yyyy): 04/12/2024 Presenting physician: Dr. Terry Presentation Type [x] Prospective [] Other Brief Clinical Summary 63 y.o. female new here to breast center after excision of mass right axilla by plastic surgery showed recurrent breast cancer ( mass was felt to be a neuroma) She c/o 7 mos history of right axillary pain and numbness- had nerve studies- negative Pain to better with injection so felt to be neuroma right axilla Also she wanted symmetry procedure so taken to surgery by plastic service for symmetry ( new implant left) and excision neuroma right- Dr. Cazares 04/02/24 5 mos history of left hip pain Pathology from right axilla 04/04/24 with metastatic ductal carcinoma in 1/2 LN ( ITC and right axillary neuroma was invasive ductal carcinoma 1.2 cm and extends to all the margins ER+, SC+, HER2 negative History of right breast cancer in [address] Mackey in [place] Sent request to [facility] for prior films 04/09/24- RECEIVED FILMS 04/09/24 History of Right breast invasive ductal carcinoma diagnosed on 05/30/2012 at [facility] Treatments include: Surgery- Right Skin Sparing Mastectomy with immediate implant replacement and SLNB on 07/26/2012- Dr. Whitaker (1/2 LN + 6 mm with focal extranodal extension ) Axillary LN Dissection- 07/31/2012-Dr. Whitaker (0/4 LN) Chemotherapy- no-Oncotype Recurrence score of 12 Radiation therapy- no Endocrine therapy- yes 1) Exemestane 10/2012-05/2013. Stopped due to diarrhea. 2) Letrozole 08/2013-08/2014. Stopped due to angioedema of the lips. 3) Tamoxifen. 09/2014-01/2015. Stopped due to recurrent angioedema. 4) Anastrozole. 5) Raloxifene started 06/2015. Stopped due to diarrhea. Last mammogram date 07/03/2023-LEFT SCREENING. BIRADS 2, 08/02/2023- RIGHT MAMMOGRAM AND ULTRASOUND-08/02/2023. BIRADS 1 Last DEXA 01/22/2024. Results: Normal. Genetics: no PATHOLOGY FROM SURGERY 04/02/2024: Addendum 2 C. RIGHT AXILLARY NEUROMA: - INVASIVE DUCTAL CARCINOMA, GRADE 2 Comment: There is no surrounding lymph node tissue; however, the possibility that this could represent an entirely replaced lymph node cannot be excluded. The tumor is tracking along a nerve. Addendum electronically signed by Ty Garcia MD on 04/10/2024 at 1002 Addendum Additional ancillary study: LAI-3: Positive Addendum electronically signed by Ty Garcia MD on 04/05/2024 at 1026 Final Diagnosis A. LEFT BREAST TISSUE, EXCISION: - BENIGN BREAST TISSUE WITH FOCAL APOCRINE METAPLASIA AND UNREMARKABLE SKIN B. LYMPH NODES, RIGHT AXILLARY, EXCISION: - METASTATIC DUCTAL CARCINOMA (ISOLATED TUMOR CELLS) IN ONE OUT OF TWO LYMPH NODES (1/2) Ancillary studies: Pancytokeratin: Positive for ITCs C. 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 The patient's history of breast cancer is noted. The tumor measures 1.2 cm in greatest dimension and extends to all the peripheral cauterized aspects of the specimen. The clinician was notified of the above diagnosis on 04/04/2024. This part of this case was reviewed by Dr. Gonzalez who concurs with the above interpretation. Ancillary studies: Pancytokeratin: Positive E-cadherin: Positive SOX10: Negative Mart1: Negative D. LEFT BREAST IMPLANT, REMOVAL: - SEE GROSS DESCRIPTION BELOW (GROSS ONLY) at 1506 Synoptic Checklist Breast Biomarker Reporting Template Protocol posted: 01/25/2023REAST BIOMARKER REPORTING TEMPLATE - All Specimens Test(s) Performed Estrogen Receptor (ER) Status Positive (greater than 10% of cells demonstrate nuclear positivity) Percentage of Cells with Nuclear Positivity 91-100% Average Intensity of Staining Strong Test Type Food and Drug Administration (FDA) cleared (test / vendor): [employer] Primary Antibody SP1 Test(s) Performed Progesterone Receptor (PgR) Status Positive Percentage of Cells with Nuclear Positivity 71-80% Average Intensity of Staining Strong Test Type Food and Drug Administration (FDA) cleared (test / vendor): [employer] Primary Antibody 1E2 Test(s) Performed HER2 by Immunohistochemistry Negative (Score 1+) Stage Cancer Staged Staging form: Breast, AJCC 8th Edition, Clinical stage from 04/10/2024: Stage IB (rcT0, cN1, cM0, G2, ER+, SC+, HER2-) - Signed by Radha Terry MD on 04/10/2024 Specific Question or Problem to be Discussed Treatment Planning and Pathology Review TUMOR BOARD RECOMMENDATIONS Guidelines consulted for recommendations [x] NCCN Notes: [] Other Notes: Genetics [x (more content not included)... Normal [facility] XR Chest 2 Viewson Hyperinflation suggesting emphysema. No acute consolidation. Report Dictated on Electronically Signed By: Anthony Jovel DO Electronically Signed Date/Time: 04/11/2024 3:43 AM [facility] Name[facility] 1960 [id number] Exam Date/Time: 04/10/2024 11:19 Procedure: XR CHEST 2 VIEWS Ordering Provider: TERRY VICTORIA Reason For Exam: recurrent breast cancer EXAM: XR Chest, 2 Views CLINICAL INDICATION: recurrent breast cancer TECHNIQUE: Frontal and lateral views of the chest. COMPARISON: None. FINDINGS: LUNGS AND PLEURAL SPACES: Hyperinflation suggesting emphysema. No consolidation. No pneumothorax. HEART: Unremarkable. No cardiomegaly. MEDIASTINUM: Unremarkable. Normal mediastinal contour. BONES/JOINTS: Thoracic degenerative spondylosis. No acute fracture. SOFT TISSUES: Bilateral breast implants. Right axillary surgical clips. [facility] Anthony Jovel DO - 04/11/2024 Patient Name: [facility]AKIR[facility]LIN [facility] 1960 [id number] Exam Date/Time: 04/10/2024 11:19 Procedure: XR CHEST 2 VIEWS Ordering Provider: TERRY VICTORIA Reason For Exam: recurrent breast cancer EXAM: XR Chest, 2 Views CLINICAL INDICATION: recurrent breast cancer TECHNIQUE: Frontal and lateral views of the chest. COMPARISON: None. FINDINGS: LUNGS AND PLEURAL SPACES: Hyperinflation suggesting emphysema. No consolidation. No pneumothorax. HEART: Unremarkable. No cardiomegaly. MEDIASTINUM: Unremarkable. Normal mediastinal contour. BONES/JOINTS: Thoracic degenerative spondylosis. No acute fracture. SOFT TISSUES: Bilateral breast implants. Right axillary surgical clips. IMPRESSION: Hyperinflation suggesting emphysema. No acute consolidation. Report Dictated on Electronically Signed By: Anthony Jovel DO Electronically Signed Date/Time: 04/11/2024 3:43 AM EST [facility] XR Chest 2 ViewsOrdered By: Anthony Jovel on 04-11-2024 [facility] [employer] Work Phone: 29on 04-10-2024 29 Addended by: AMANDA ROJAS on: 04/10/2024 11:05 AM Modules accepted: Orders Normal [facility] CBC (HEMOGRAM)on 04-10-2024 Erythrocyte distribution width (RBC) [Ratio] 13.5 % Normal 11.5-15.0 [facility] Comment on above: Performed By: #### L [id number] #### Certified Medical Aide: MIROSLAVA OLIVAREZ ([id number]) [facility]) [address] [place] [address] Hematocrit (Bld) [Volume fraction] 39.8 % Normal 35.0-47.0 [facility] Comment on above: Performed By: #### L [id number] #### Certified Medical Aide: MIROSLAVA OLIVAREZ ([id number]) [facility] ([facility]) [address] [place] [address] Hemoglobin (Bld) [Mass/Vol] 12.7 g/dL Normal 11.7-16.0 [facility] Comment on above: Performed By: #### L [id number] #### Certified Medical Aide: MIROSLAVA OLIVAREZ ([id number]) [facility]) [address] [place] [address] MCH (RBC) [Entitic mass] 27.5 pg Normal 26.0-34.0 [facility] Comment on above: Performed By: #### L [id number] #### Certified Medical Aide: MIROSLAVA OLIVAREZ ([phone]) [facility]) [address] [place] [address] MCHC 31.9 % Normal 30.5-36.0 [facility] Comment on above: Performed By: #### L [id number] #### Certified Medical Aide: MIROSLAVA OLIVAREZ ([id number]) [facility]) [address] [place] [address] MCV (RBC) [Entitic vol] 86.1 fL Normal 77.0-99.0 [facility] Comment on above: Performed By: #### L [id number] #### Certified Medical Aide: MIROSLAVA OLIVAREZ ([id number]) [facility]) [address] [place] [address] Platelet mean volume (Bld) [Entitic vol] 9.1 fL Normal 9.0-12.7 [facility] Comment on above: Performed By: #### L [id number] #### Certified Medical Aide: MIROSLAVA OLIVAREZ ([id number]) [facility]) [address] [place] [address] Platelets (Bld) [#/Vol] 249 10*3/uL Normal 140-440 [facility] Comment on above: Performed By: #### L [id number] #### Certified Medical Aide: MIROSLAVA OLIVAREZ ([id number]) [facility]) [address] [place] [address] RBC (Bld) [#/Vol] 4.62 10*6/uL Normal 3.80-5.20 [facility] Comment on above: Performed By: #### L [id number] #### Certified Medical Aide: MIROSLAVA OLIVAREZ ([id number]) [facility] [address] [place] [address] WBC (Bld) [#/Vol] 6.9 10*3/uL Normal 3.6-10.7 [facility] Comment on above: Performed By: #### L [id number] #### Certified Medical Aide: MIROSLAVA OLIVAREZ ([id number]) [facility] ([facility]) [address] [place] [address] CBC panel Auto (Bld)on 04-10 Erythrocyte distribution width (RBC) [Ratio] 13.5 % 11.5 - 15.0 % [facility] Hematocrit (Bld) [Volume fraction] 39.8 % 35.0 - 47.0 % [facility] Hemoglobin (Bld) [Mass/Vol] 12.7 g/dL 11.7 - 16.0 g/dL [facility] Interpretation and review of laboratory results Normal [facility] MCH (RBC) [Entitic mass] 27.5 pg 26.0 - 34.0 pg [facility] MCHC (RBC) [Mass/Vol] 31.9 % 30.5 - 36.0 % [facility] MCV (RBC) [Entitic vol] 86.1 fL 77.0 - 99.0 fL [facility] Platelet mean volume (Bld) [Entitic vol] 9.1 fL 9.0 - 12.7 fL [facility] Platelets (Bld) [#/Vol] 249 10*3/uL 140 - 440 10*3/uL [facility] RBC (Bld) [#/Vol] 4.62 10*6/uL 3.80 - 5.2 0 10*6/uL [facility] WBC (Bld) [#/Vol] 6.9 10*3/uL 3.6 - 10.7 10*3/uL [facility] COMPREHENSIVE METABOLIC PANE Herbie 04-10-2024 Albumin [Mass/Vol] 4.1 g/dL Normal 3.4-4.8 [facility] Comment on above: Performed By: #### L [id number] ####Certified Medical Aide: MIROSLAVA OLIVAREZ ([phone])[facility] ([facility])[address] [place] [address] ALP [Catalytic activity/Vol] 71 U/L Normal 40-150 [facility] Comment on above: Performed By: #### L [id number] ####Certified Medical Aide: MIROSLAVA OLIVAREZ ([phone])[facility] ([facility])[address] [place] [address] [place] ALT [Catalytic activity/Vol] 16 U/L Normal <30 [facility] Comment on above: Performed By: #### L AB17 ####Certified Medical Aide: MIROSLAVA OLIVAREZ ([id number])[facility] ([facility])[address] [place] [address] Anion gap [Moles/Vol] 6 mmol/L Normal 3-13 [facility] Comment on above: Performed By: #### L AB17 ####Certified Medical Aide: MIROSLAVA OLIVAREZ ([phone])[facility] ([facility])[address] [place] [address] AST [Catalytic activity/Vol] 29 U/L Normal <34 [facility] Comment on above: Performed By: #### L [id number] ####Certified Medical Aide: MIROSLAVA OLIVAREZ ([phone])[facility] ([facility])[address] [place] [address] Bilirubin [Mass/Vol] 0.4 mg/dL Normal <1.2 [facility] Comment on above: Performed By: #### L AB17 ####Certified Medical Aide: MIROSLAVA OLIVAREZ ([phone])[facility])[address] [place] [address] Calcium [Mass/Vol] 9.6 mg/dL Normal 8.8-10.0 [facility] Comment on above: Performed By: #### L AB17 ####Certified Medical Aide: MIROSLAVA OLIVAREZ ([phone])[facility])[address] [place] [address] Chloride [Moles/Vol] 105 mmol/L Normal 98-107 [facility] Comment on above: Performed By: #### L AB17 ####Certified Medical Aide: MIROSLAVA OLIVAREZ ([phone])[facility])[address] [place] [address] CO2 [Moles/Vol] 28 mmol/L Normal 23-31 [facility] Comment on above: Performed By: #### L AB17 ####Certified Medical Aide: MIROSLAVA OLIVAREZ ([id number])[facility])[address] [place] [address] Creatinine [Mass/Vol] 0.86 mg/dL Normal 0.57-1.11 [facility] Comment on above: Performed By: #### L AB17 ####Certified Medical Aide: MIROSLAVA OLIVAREZ ([phone])[facility])[address] [place] [address] GLOMERULAR FILTRATION RATE ML/MIN/1.73 SQ M.PREDICTED 75.1 mL/min/1.73m*2 Normal >60.0 [facility] Comment on above: Result Comment: Calc ulation based on the Chronic Kidney Disease Epidemiology Collaboration (CKD-EPI) equation refit without adjustment for race Performed By: #### L AB17 ####Certified Medical Aide: MIROSLAVA OLIVAREZ ([phone])[facility])[address] [place] [address] Glucose [Mass/Vol] 90 mg/dL Normal 82-115 [facility] Comment on above: Performed By: #### L AB17 ####Certified Medical Aide: MIROSLAVA OLIVAREZ ([id number])[facility])[address] [place] [address] Potassium [Moles/Vol] 4.1 mmol/L Normal 3.5-5.1 [facility] Comment on above: Result Comment: [facility] potassium values may be up to 0.5 mmol/L lower than serum values. Performed By: #### L AB17 ####Certified Medical Aide: MIROSLAVA OLIVAREZ ([id number])[facility])[address] [place] [address] Protein [Mass/Vol] 7.0 g/dL Normal 6.4-8.3 [facility] Comment on above: Performed By: #### L AB17 ####Certified Medical Aide: MIROSLAVA OLIVAREZ ([phone])[facility])[address] [place] [address] Sodium [Moles/Vol] 139 mmol/L Normal 136-145 [facility] Comment on above: Performed By: #### L AB17 ####Certified Medical Aide: MIROSLAVA OLIVAREZ ([phone])[facility])[address] [place] [address] Urea nitrogen [Mass/Vol] 14 mg/dL Normal 9-23 [facility] Comment on above: Performed By: #### L AB17 ####Certified Medical Aide: MIROSLAVA OLIVAREZ ([id number])[facility])[address] [place] [address] Comprehensive metabolic 1998 panelon 04-10-2024 Albumin [Mass/Vol] 4.1 g/dL 3.4 - 4.8 g/dL [facility] ALP [Catalytic activity/Vol] 71 U/L 40 - 150 U/L [facility] ALT [Catalytic activity/Vol] 16 U/L NINF - 30 U/L [facility] Anion gap [Moles/Vol] 6 mmol/L 3 - 13 mmol/L [facility] AST [Catalytic activity/Vol] 29 U/L [facility] - 34 U/L [facility] Bilirubin [Mass/Vol] 0.4 mg/dL [facility] - 1.2 mg/dL [facility] Calcium [Mass/Vol] 9.6 mg/dL 8.8 - 10. 0 mg/dL [facility] Chloride [Moles/Vol] 105 mmol/L 98 - 10 7 mmol/L [facility] CO2 [Moles/Vol] 28 mmol/L 23 - 31 mmol/L [facility] Creatinine [Mass/Vol] 0.86 mg/dL 0.57 - 1.11 mg/dL [facility] GFR/1.73 sq M.predicted (S/P/Bld) [Vol rate/Area] 75.1 mL/min - PINF [facility] Comment on above: Calculation based on the Chronic Kidney Disease Epidemiology Collaboration (CKD-EPI) equation refit without adjustment for race Glucose [Mass/Vol] 90 mg/dL 82 - 115 mg/dL [facility] Interpretation and review of laboratory results Normal [facility] Potassium [Moles/Vol] 4.1 mmol/L 3.5 - 5.1 mmol/L [facility] Comment on above: Plasma potassium kwesi ues may be up to 0.5 mmol/L lower than serum values. Protein [Mass/Vol] 7 g/dL 6.4 - 8.3 g/dL [facility] Sodium [Moles/Vol] 139 mmol/L 136 - 145 mmol/L [facility] Urea nitrogen [Mass/Vol] 14 mg/dL 9 - 23 mg/dL [facility] Office Visiton 04-10-2024 Follow-up visit [id number] MaragagandeepJeffreyjeff libia 1960 F Date Provider Department Center 04/10/2024 [address]-YXORADHA TERRY [facility] None No family history on file Level of Service:82276 [place] OFFICE/OUTPATIENT NEW MODERATE MDM 45 MINUTES Reason for Visit and Comments: Cancer Treatment Planning [712] - Treatment planning Normal [facility] Progress Noteon 04-10-2024 Progress Note Met with patient and daughter Yumi, for discussion of new breast cancer diagnosis, 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 Introduced myself and role. Reviewed pathology and answered questions. Reviewed contents of breast cancer bag and binder and encouraged to review areas that are marked for specific breast cancer related resources. Provided surgical pillow, exercise ball and contact information. Discussed available supportive services including but not limited to financial navigator, social media content specialist, dietitian, psychologist, renewal nook, massage therapy and wig salon. Discussed support groups available through [facility] and at [facility]. Encouraged patient to explore [facility] website for available options including exercise classes. Education provided on importance of keeping physically active and benefits of activity throughout the journey. At this time patient is scheduled for genetic testing on 04/17 at 9am, breast MRI 04/17 at 7am, bone scan on 04/19 at 9am, CT chest/abd/pelvis 04/22 at 2:45p followed by CT soft tissue neck 04/22 at 3:15pm. She was provided with a print out of all her appointment dates/times and locations. Distress level reviewed at a 1 out of 10, anxiety/worries/fear 3 due to recurrence diagnosis and worries of radiation. States she has had several family members who have had radiation in the past who are no longer alive. She does live alone and expressed desire to perhaps meet with Dr. Hansen, social media content specialist and financial navigator in the future but would like to hold off for now. Encouraged them to reach out to me if they would like referrals or information on these supportive services. Discussed what to expect with surgery and location of same day surgery. Patient aware that prior to surgery they will be evaluated by an lion trainer with a functional assessment to determine if there are any mobility concerns to be aware of prior to surgery. Patient is also aware of pre-admission testing appointment and purpose for visit. Provided emotional support and encouraged to call with any questions or concerns. Patient verbalizes understanding and agrees with the plan. Normal [facility] Progress Note Please call patient: CXR and blood work look good Normal [facility] XR Chest 2 Viewson Radiology Study observation (narrative) [facility] Normal [facility] Airwayon 04-02-2024 JAVAN Holbrook 04/02/2024 7:55 AM Airway Date/Time: 04/02/2024 7:39 AM Urgency: scheduled Airway not difficult General Information and Staff Patient location during procedure: Procedural Resident/KLYSTROM TUBE TESTER: Yarelis Wise CRNA Performed: SRNA Indications and Patient Condition Indications for airway management: anesthesia Sedation level: Asleep Preoxygenated: yes Patient position: sniffing Mask difficulty assessment: 2 - vent by mask + OA or adjuvant +/- NMBA Final Airway Details Final airway type: endotracheal airway Successful airway: ETT Cuffed: yes (MOV) Successful intubation technique: direct laryngoscopy Facilitating devices/methods: intubating stylet Blade: Kaen Blade size: #3 ETT size (mm): 7.0 Cormack-Lehane Classification: grade IIa - partial view of glottis Placement verified by: chest auscultation and capnometry Measured from: lips ETT to lips (cm): 22 Number of attempts at approach: 1 Additional Comments atraumatic [facility] Nursing Noteon 04-02-2024 Nursing Note Patient more awake, drinking coffee. Feels more alert to go home. IV discontinued, catheter intact, site benign. Manual pressure held. Patient dressed, all belongings returned. Daughter with homegoing instructions and prescription medications. Normal [facility] Nursing Note Pt back to sleep, ve ry drowsy. Does not feel like she can go home at this time. Will continue to monitor Normal [facility] Nursing Note Patient up to bathro om with 2 assist Normal [facility] Nursing Note Discharge informatio n given to the patient. Patient and family verbalized understanding of information. Tolerating PO fluids and crackers. Vital signs are stable. Normal [facility] Nursing Note Patients daughter at bedside and udpated Normal [facility] Op Noteon 04-02-2024 Op Note Plastic & Reconstruc tive Surgery Operative Report Pre-operative Diagnosis: 1. Breast asymmetry after reconstruction 2. Right axillary neuroma symptomatic Post-operative Diagnosis: Same Procedure: 1. Revision of left breast reconstruction with removal and replacement of implant, capsulorrhaphy, and mastopexy. NAC pedicle was a superior pedicle. 2. Exploration of right axilla with excision of right axillary neuroma and targeted muscle reinnervation with sensory to motor epineurial anastomosis Surgeon: Jaya Cazares MD Water Control Supervisor(s): Marissa Cruz MD, Savita CUELLO Anesthesia: General Estimated blood loss: 15 cc Specimens: 1. Left breast tissue 2. Right axillary lymph nodes 3. Right axillary neuroma Implants: Implant removed was a 425 cc [place] implant and implant placed was a [place] memory gel smooth round high-profile 400 cc implant reference #[id number] with a base width of 12.2 cm Findings: See operative report Complications: None Condition: Stable Indications: Patient is a 63-year-old female with a history of right breast cancer who had a lumpectomy with implant and postoperative radiation. On her contralateral right side she had a previous periareolar mastopexy and implant placement. Over time she has developed ptosis and breast asymmetry between her cantwell and reconstructed in the breast. We discussed operative options and decided to proceed with a mastopexy and revision of her reconstruction on the left noncancer side. At the same time patient had chronic pain in the right axilla consistent with a neuroma. A preoperative block was placed in this area with resolution of her symptoms making me think surgical intervention would be beneficial for the patient. Description of Procedure: Patient was seen and evaluated in the preoperative area for her procedure. Preoperative markings were performed in the standard fashion. Patient localized the point of discomfort in her right axilla and this was marked on palpation a hard nodule was felt in this area. We also marked her breast for a superior pedicle mastopexy with a modified Esteves pattern. Risks/benefits were reviewed and informed consent was obtained. They were then taken to the OR and placed supine on the operating room table. Cardiopulmonary monitoring was initiated and EPC cuffs were placed on her bilateral lower extremities. General anesthesia was induced by the anesthesia team. Under ultrasound guidance the anesthesia service performed a left pec block. The patient was then prepped and draped in standard sterile fashion. A surgical time out was performed by all members of the surgical staff. We first started on the left breast. Our incisions were anesthetized with local anesthesia and we decreased the size of the NAC to 4 cm with a round template. We then made all of our skin incisions with a scalpel and de-epithelialized the superior pedicle for our NAC. Next using Bovie cauterization along the inferior aspect of our superior pedicle we dissected directly down to the breast capsule, elevated our medial lateral pillars, and then amputated the lower pole of our Esteves pattern. This breast tissue was sent for pathology. Patient had a visible capsule with some thin pectoralis major muscle along the superior edge that was visible. I then excised a large portion of the lower capsule and discarded this. We then examined her submuscular cavity which looked normal. We then opened the junction between her chest wall and the undersurface of the pectoralis major muscle at the superior aspect of the capsule and elevated the pocket cranially to allow for better implant placement. The implant that was removed was 425 cc. I then placed a 400 cc sizer in the pocket and I felt we had nice symmetry. The base width of this was 12.2 cm, I marked this off of the chest wall and plicated an ellipse of the lateral capsule to tighten the implant space. The edges of this capsule were cauterized for closure. This plication was performed with a 2-0 PDS suture. I then replaced the sizer into the pocket and advanced the superior capsule to the inferior capsule of opening in the area where we excised. I felt with partial inferior capsule removal this to help really lift the implant up into our new more superior pocket. With the excellent support from her capsule I felt placing a piece of AlloDerm was not needed. We then inset the NAC advancing our superior flap into the superior position with a few simple 2-0 silk sutures. The lateral aspect of the capsule was then closed with a running 2-0 PDS suture leaving an opening for implant placement. We then copiously irrigate out the operative pocket with antibiotic solution prepping the skin with our antibiotic solution as well. We then changed gloves and using a Gutierrez funnel and a no touch technique placed the new 400 cc implant into our pocket. We then finished closing the capsule to (more content not included)... Peripheral Blockon JAVAN Holbrook 04/02/2024 7:40 AM Peripheral Block Time Out: 04/02/2024 7:40 AM Patient location during procedure: Procedural Start time: 04/02/2024 7:40 AM End time: 04/02/2024 7:43 AM Reason for block: at surgeon's request and post-op pain management Staffing Performed: KLYSTROM TUBE TESTER Resident/KLYSTROM TUBE TESTER: CHAS Briseno CRNA Preanesthetic Checklist Completed: patient identified, IV checked, site marked, risks and benefits discussed, surgical consent, monitors and equipment checked, pre-op evaluation and timeout performed Region: [place] Primary: PEC1 (PEC 1) Secondary: PEC 2 Peripheral Block Patient position: supine Prep: ChloraPrep Patient monitoring: heart rate, information writer, continuous pulse ox and continuous capnometry O2: ETT/LMA Laterality: left Injection technique: single-shot Guidance: ultrasound guided -image retained in chart, tip of the needle identified by ultraound during injection. Needle Needle: 22G X 80 mm Additional Notes Bupivacaine 0.375%/ Epi 1:200,000/ Dex 0.1mg/mL 20ml pec2 Bupivacaine 0.375%/ Epi 1:200,000/ Dex 0.1mg/mL 10ml pec1 04/02/2024 7:40 AM Assessment Injection assessment: negative aspiration for heme and incremental injection Heart rate change: no Slow fractionated injection: yes Required Documentation: Relevant anatomy identified (Nerves, Vessels, Muscles), Negative for blood on aspiration, Local anesthetic injected incrementally with intermittent aspiration every 5 mL, Normal resistance with injection, Local anesthetic spread visualized around nerves or plane., No EKG changes noted, No symptoms of toxicity and Local anesthetic injected without difficultyMedications dexAMETHasone-bupivacain e-epinephrine (TAP) syringe - Injection 30 mL - 04/02/2024 7:40:00 AM [facility] ECG 12-LEADon 03-27-2024 ECG 12-LEAD IMPRESSION: Sinus rhythm Short SC interval Electronically Signed On 03-27-2024 13:28:24 EST by Geovanny [place] [id number] 03-26-2024 [id number] Medication List Accurate as of March 26, 2024 10:38 AM. Always use your most recent med list. cholestyramine 4 g packet Commonly known as: Questran Medication Adjustments for Surgery: Hold morning of surgery DULoxetine [address] capsule Commonly known as: Cymbalta Medication Adjustments for Surgery: Take morning of surgery meloxicam 15 MG tablet Commonly known as: Mobic Notes to patient: Hold 5 days prior to surgery. Take the last dose of meloxicam 03/27/2024. methocarbamol 500 MG tablet Commonly known as: Robaxin Notes to patient: May take the morning of surgery if needed. Additional Instructions: BOAT PILOT AND PARKING IN THE MAIN DECK ARE FREE DAY OF SURGERY. PARKING IN THE DECK-- AFTER PARKING TAKE THE ELEVATOR TO LEVEL ONE AND TAKE THE BRIDGE TO THE HOSPITAL. GO TO THE RIGHT AND GO AROUND THE CORNER TO THE SAME DAY SURGERY DESK AND CHECK IN THERE. IF GOING IN THE MAIN ENTRANCE-- TURN LEFT AND GO DOWN THE OVALLE TO THE H ELEVATORS AND TAKE THEM TO ONE, LEFT OFF THE ELEVATOR AND GO AROUND TO THE SAME DAY DESK AND CHECK IN. You may take your prescription pain medication. You may take Tylenol for pain. NO Motrin, ibuprofen or Advil for 24 hours prior to surgery or longer if instructed by your surgeon. NO Aleve or Naprosyn for 5 days prior to surgery or longer if instructed by your surgeon. IF YOU TAKE BLOOD THINNERS OR ASPIRIN: no aspirin for 5 days prior to surgery. Follow any instructions given to you by Dr. Cazares. Shower with an antibacterial soap such as Dial or Safeguard the morning of surgery before coming to the hospital. Do not shave underarms. No makeup, lotion, powder, deodorant or body spays. No hair products. Remove all jewelry and leave it at home. Wear loose comfortable clothing to go home in. You may brush your teeth morning of surgery. Do not wear contacts day of surgery. No marijuana (THC), smoking or alcohol for 24 hours prior to surgery. Please arrange for a responsible adult to drive you home after your surgery and that there is a responsible adult with you for 24 hours post discharge. If you have specific questions, please call your surgeon. You will receive a call the day before your surgery to verify your arrival time and date. You will be asked to arrive at least two hours prior to your scheduled surgery time. Please bring your [facility] Surgical folder and medication list with you day of surgery. We encourage you to write down any questions you may have for the surgeon, anesthesiologist, or other members of the surgical team and bring it with you the day of surgery. Please bring photo ID and insurance information. Normal [facility] Progress Noteon 03-26-2024 Progress Note [facility] [place] : 1960 Primary Care Physician: No primary care provider on file. The patient and/or family/surrogate voluntarily agreed to participate in ACP services. Patient?s cognitive capacity: Patient is Alert and Omar to person, place and time Code Status: [x] [FULL CODE - Continue all advanced life support: CPR,intubation,invasive procedures] [_] [DNR-CCA - DO NOT do CPR, intubation] [_] [DNR-ESTHETICIAN AND MANAGER MEDICAL SPA - Comfort care only] [_] DNR form [was/was not] signed Summary of discussion: The patient health care POA/ surrogate is the following: Son and daughter, pt advised to bring copy DOS. [Condition that instigated the ACP on this DOS, relevant PMH, functional status, goals of care, and whom this was discussed with including names and relationship to the patient, and any relevant advance care documentation discussion] I answered all the patient/family questions that I could within the range and scope of the current medical situation. We discussed the medical conditions, risks, benefits, outcomes, and goals of care at this time for the patient's medical issues at hand in the face of the patient's chronic issues and current presentation. Total time spent: 2 minutes were spent discussing the patient's resuscitation status, advance care planning, and end of life care, with patient and/or family/surrogate. Sarah Cook APRN - PHARMACEUTICAL OFFICER [employer] 03/26/2024, 11:45 AM Normal [facility] C. difficile toxin genes FELY +probe Ql (Stl)on 03-22-2024 Interpretation and review of laboratory results Normal [facility] CLOSTRIDIUM DIFFICILE TOXIN BY PCRon 03-22-2024 C. difficile toxin genes FELY+probe Ql (Stl) Negative Negative for C. difficile toxin by PCR [facility] CNTHERAPYon 03-22-2024 CNTHERAPY Normal [facility] Gastrointestinal pathogens i dentified FELY+probe Nom (Stl)Ordered By: Rosemarie Lima on 03-22-2024 Campylobacter sp DNA FELY+probe Nom (Unsp spec) Not detected Not Detected [facility] Interpretation and review of laboratory results Normal [facility] Salmonella sp DNA FELY+probe Ql (Unsp spec) Not detected Not Detected [facility] Shiga toxin stx gene FELY+probe Nom (Unsp spec) Not detected Not Detected [facility] Shigella sp DNA FELY+probe Ql (Unsp spec) Not detected Not Detected [facility] C diff Tox gens Stl Ql FELY+p robeon 03-21-2024 C. difficile toxin genes FELY+probe Ql (Stl) Negative Normal Negative for C. difficile toxin by PCR [facility] Comment on above: Order Comment: Speci men Type: STOOL SPECIMENOrdering Facility: [facility] Address: [address] [place] [address] Performed By: #### 5 4067-4 ####[facility] LABCLIA [id number] [place] [address] [place] CNOVon 03-21-2024 CNOV Normal [facility] Gastrointestinal pathogens i dentified FELY+probe Nom (Stl)on 03-21-2024 Campylobacter sp DNA FELY+probe Nom (Unsp spec) Not detected Normal Not Detected [facility] Comment on above: Order Comment: Speci men Type: STOOL SPECIMENOrdering Facility: [facility] Address: [address] [place] [address] Performed By: #### 7 9390-1 ####[facility] LABIA [id number] [place] [address] [place] Salmonella sp DNA FELY+probe Ql (Unsp spec) Not detected Normal Not Detected [facility] Comment on above: Order Comment: Speci men Type: STOOL SPECIMENOrdering Facility: [facility] Address: [address] [place] [address] Performed By: #### 7 9390-1 ####[facility] LABIA [id number] [place] [address] [place] Shiga toxin stx gene FELY+probe Nom (Unsp spec) Not detected Normal Not Detected [facility] Comment on above: Order Comment: Speci men Type: STOOL SPECIMENOrdering Facility: [facility] Address: [address] [place] [address] Performed By: #### 7 9390-1 ####[facility] [id number] [place] [address] [place] Shigella sp DNA FELY+probe Ql (Unsp spec) Not detected Normal Not Detected [facility] Comment on above: Order Comment: Speci men Type: STOOL SPECIMENOrdering Facility: [facility] Address: [address] [place] [address] Performed By: #### 7 9390-1 ####[facility] [id number] [place] [address] [place] CNTHERAPYon 03-15-2024 CNTHERAPY Normal [facility] C diff Tox gens Stl Ql FELY+p robeon 03-12-2024 C. difficile toxin genes FELY+probe Ql (Stl) Negative Normal Negative for C. difficile toxin by PCR [facility] Comment on above: Order Comment: Speci men Type: STOOL SPECIMENOrdering Facility: [facility] Address: [address] [place] [address] Performed By: #### 5 4067-4, 38646-8 ####[facility] LABCLIA [id number] [place] [id number] [place] CBC panel Auto (Bld)on 03-12 Erythrocyte distribution width (RBC) [Ratio] 13.1 % 11.5 - 15.0 % [facility] Hematocrit (Bld) [Volume fraction] 37.0 % 36.0 - 46.0 % [facility] Hemoglobin (Bld) [Mass/Vol] 11.9 g/dL 11.5 - 15.5 g/dL [facility] Interpretation and review of laboratory results Normal [facility] MCH (RBC) [Entitic mass] 27.3 pg 26.0 - 34.0 pg [facility] MCHC (RBC) [Mass/Vol] 32.2 g/dL 30.5 - 36.0 g/dL [facility] MCV (RBC) [Entitic vol] 84.9 fL 80.0 - 100.0 fL [facility] Nucleated RBC (Bld) [#/Vol] NINF [facility] Platelet mean volume (Bld) [Entitic vol] 9.2 fL 9.0 - 12.7 fL [facility] Platelets (Bld) [#/Vol] 203 10*3/uL [facility] RBC (Bld) [#/Vol] 4.36 10*6/uL 3.90 - 5.2 0 m/uL [facility] WBC (Bld) [#/Vol] 6.41 10*3/uL [facility] Erythrocyte distribution width (RBC) [Ratio] 13.1 % Normal 11.5-15.0 [facility] Comment on above: Order Comment: Speci men Type: BLOOD SPECIMENOrdering Facility: [facility] Address: [address] [place] [address] Performed By: #### 5 8410-2 ####[facility] JOSE [facility]IALRUBEN [id number] [place] [id number] [place] [address] [place] Hematocrit (Bld) [Volume fraction] 37.0 % Normal 36.0-46.0 [facility] Comment on above: Order Comment: Speci men Type: BLOOD SPECIMENOrdering Facility: [facility] Address: [address] [place] [address] Performed By: #### 5 8410-2 ####[facility] THOMASLIA [id number] [place] [address] [place] Hemoglobin (Bld) [Mass/Vol] 11.9 g/dL Normal 11.5-15.5 [facility] Comment on above: Order Comment: Speci men Type: BLOOD SPECIMENOrdering Facility: [facility] Address: [address] [place] [address] Performed By: #### 5 8410-2 ####[facility]ITALDEVANTELIA [id number] [place] [address] [place] MCH (RBC) [Entitic mass] 27.3 pg Normal 26.0-34.0 [facility] Comment on above: Order Comment: Speci men Type: BLOOD SPECIMENOrdering Facility: [facility] Address: [address] [place] [address] Performed By: #### 5 8410-2 ####[facility] CENTERLIA [id number] [place] [address] [place] MCHC (RBC) [Mass/Vol] 32.2 g/dL Normal 30.5-36.0 [facility] Comment on above: Order Comment: Speci men Type: BLOOD SPECIMENOrdering Facility: [facility] Address: [address] [place] [address] Performed By: #### 5 8410-2 ####[facility] TIANTULSADEVANTELIA [id number] [place] [address] [place] MCV (RBC) [Entitic vol] 84.9 fL Normal 80.0-100.0 C [facility] Comment on above: Order Comment: Speci men Type: BLOOD SPECIMENOrdering Facility: [facility] Address: [address] [place] [address] Performed By: #### 5 8410-2 ####[facility]ITALDEVANTEA [id number] [place] [address] [place] Nucleated RBC (Bld) [#/Vol] 10*3/uL Normal <0.01 [facility] Comment on above: Order Comment: Speci men Type: BLOOD SPECIMENOrdering Facility: [facility] Address: [address] [place] [address] Performed By: #### 5 8410-2 ####[facility] CENTERLIA [id number] [place] [address] [place] Platelet mean volume (Bld) [Entitic vol] 9.2 fL Normal 9.0-12.7 [facility] Comment on above: Order Comment: Speci men Type: BLOOD SPECIMENOrdering Facility: [facility] Address: [address] [place] [address] Performed By: #### 5 8410-2 ####[facility] HOS[facility]ITALWDCLIA [id number] [place] [address] [place] Platelets (Bld) [#/Vol] 203 10*3/uL Normal 150-400 [facility] Comment on above: Order Comment: Speci men Type: BLOOD SPECIMENOrdering Facility: [facility] Address: [address] [place] [address] Performed By: #### 5 8410-2 ####[facility] CENTERLIA [id number] [place] [address] [place] RBC (Bld) [#/Vol] 4.36 10*6/uL Normal 3.90-5.20 [facility] Comment on above: Order Comment: Speci men Type: BLOOD SPECIMENOrdering Facility: [facility] Address: [address] [place] [address] Performed By: #### 5 8410-2 ####[facility]ITALNCLIA [id number] [place] [address] [place] WBC (Bld) [#/Vol] 6.41 10*3/uL Normal 3.70-11.00 [facility] Comment on above: Order Comment: Anuj philip Type: BLOOD SPECIMENOrdering Facility: [facility] Address: [address] [place] [address] Performed By: #### 5 8410-2 ####[facility] [id number] [place] [id number] [facility] CELIAC SCREENon 03-12-2024 GLIAD DEAMIDATED IGA QUAL Negative Normal Negative, Test not Indicated [facility] Comment on above: Order Comment: Anuj philip Type: BLOOD SPECIMENOrdering Facility: [facility] Address: [address] [place] [address] Result Comment: This is used as an aid in diagnosis of celiac disease. Clinical correlation is required.The following results were obtained with an [employer] QUANTA Lite Gliadin IgA CARSON Gliadin. Gliadin IgA values obtained with different manufacturers' assay methods may not be used interchangeably. The magnitude of the reported IgA levels cannot be correlated to an endpoint titer. Performed By: #### L [id number] ####[facility] LABCLIA [id number] [place] [address] [place] Gliadin peptide IgA Qn (S) 3 Units Normal <20 [facility] Comment on above: Order Comment: Anuj philpi Type: BLOOD SPECIMENOrdering Facility: [facility] Address: [address] [place] [address] Performed By: #### L [id number] ####[facility] LABCLIA [id number] [place] [address] [place] INTERPRETATION No serological evide nce of celiac disease, however, if celiac disease is clinically suspected and patient is not on gluten-free diet, histological diagnosis may be considered. HLA testing may help with risk assessment. Normal [facility] Comment on above: Order Comment: Anuj philip Type: BLOOD SPECIMENOrdering Facility: [facility] Address: [address] [place] [address] Performed By: #### L [id number] ####[facility] LABCLIA [id number] [place] [address] [place] TRANSGLUTAMINASE IGA ABS INTERPRETATION Negative Normal Negative [facility] Comment on above: Order Comment: Speci men Type: BLOOD SPECIMENOrdering Facility: [facility] Address: [address] [place] [address] Result Comment: The following results were obtained with iMERA eduplanet KKe R h-tTG IgA CARSON.???R h-tTG IgA values obtained with different manufacturers' assay methods may not be used interchangeably. The magnitude of the reported IgA levels cannot be corelated to an endpoint???concentration.This is used as an aid in diagnosis of celiac disease. Clinical correlation is required. Performed By: #### L [id number] ####[facility] LABCLIA [id number] [place] [address] [place] tTG IgA Qn (S) <2 Normal <4 [facility] Comment on above: Order Comment: Speci men Type: BLOOD SPECIMENOrdering Facility: [facility] Address: [address] [place] [address] Performed By: #### L [id number] ####[facility] LABCLIA [id number] [place] [address] [place] CNOVon 03-12-2024 CNOV Normal [facility] Calprotectin (Stl) [Mass/Mas s]on 03-12-2024 CALPROTECTIN, FECAL QUANTITATIVE 72.6 ug/g High <50 [facility] Comment on above: Order Comment: Speci men Type: STOOL SPECIMENOrdering Facility: [facility] Address: [address] [place] [address] Performed By: #### 5 4067-4, 17830-5 ####[facility] LABCLIA [id number] [place] [address] [place] Comprehensive metabolic 2000 panelOrdered By: Elena Sapp on 03-12-2024 Albumin [Mass/Vol] 4.5 g/dL 3.9 - 4.9 g/dL [facility] ALP [Catalytic activity/Vol] 74 U/L 34 - 123 U/L [facility] ALT [Catalytic activity/Vol] 15 U/L 7 - 38 U/L [facility] Anion gap [Moles/Vol] 11 mmol/L 8 - 15 mmol/L [facility] AST [Catalytic activity/Vol] 24 U/L 13 - 35 U/L [facility] Bilirubin [Mass/Vol] 0.2 mg/dL 0.2 - 1 .3 mg/dL [facility] Calcium [Mass/Vol] 9.9 mg/dL 8.5 - 10. 2 mg/dL [facility] Chloride [Moles/Vol] 105 mmol/L 98 - 10 7 mmol/L [facility] CO2 [Moles/Vol] 27 mmol/L 22 - 30 mmol/L [facility] Creatinine [Mass/Vol] 0.71 mg/dL 0.58 - 0.96 mg/dL [facility] GFR/1.73 sq M.predicted among non-blacks MDRD (S/P/Bld) [Vol rate/Area] 94 mL/min/{1.73_m2} - PINF [facility] Comment on above: Estimated Glomerular Filtration Rate (eGFR) is calculated using the 2020 CKD-EPI creatinine equation. This equation utilizes serum creatinine, sex, and age as parameters. The creatinine assay has traceable calibration to isotope dilution-mass spectrometry. Refer to KDIGO guidelines for clinical interpretation. In patients with unstable renal function, e.g. those with acute kidney injury, the eGFR may not accurately reflect actual GFR. Glucose [Mass/Vol] 102 mg/dL High 74 - 99 mg/dL [facility] Comment on above: The [place] Diab[employer] [place] Association (ADA) provides guidance for cutoff values for fasting glucose and random glucose. The ADA defines fasting as no caloric intake for at least 8 hours. Fasting plasma glucose results between 100 to 125 mg/dL indicate increased risk for diabetes (prediabetes). Fasting plasma glucose results greater than or equal to 126 mg/dL meet the criteria for diagnosis of diabetes. In the absence of unequivocal hyperglycemia, results should be confirmed by repeat testing. In a patient with classic symptoms of hyperglycemia or hyperglycemic crisis, random plasma glucose results greater than or equal to 200 mg/dL meet the criteria for diagnosis of diabetes. Reference: Standards of Medical Care in Diabetes 2016, [place] [employer]. Diabetes Care. 2016.39(Suppl 1). Interpretation and review of laboratory results Abnormal [facility] Potassium [Moles/Vol] 3.3 mmol/L Low 3.7 - 5.1 mmol/L [facility] Protein [Mass/Vol] 7.2 g/dL 6.3 - 8.0 g/dL [facility] Sodium [Moles/Vol] 143 mmol/L 136 - 144 mmol/L [facility] Urea nitrogen [Mass/Vol] 14 mg/dL 7 - 21 mg/dL [facility] Comprehensive metabolic 2000 panelon 03-12-2024 Albumin [Mass/Vol] 4.5 g/dL Normal 3.9-4.9 [facility] Comment on above: Order Comment: Anuj philip Type: BLOOD SPECIMENOrdering Facility: [facility] Address: [address] [place] [address] Performed By: #### 2 4323-8 ####[facility] CENTERLIA [id number] [place] [address] [place] ALP [Catalytic activity/Vol] 74 U/L Normal 34-123 [facility] Comment on above: Order Comment: Anuj philip Type: BLOOD SPECIMENOrdering Facility: [facility] Address: [address] [place] [address] Performed By: #### 2 4323-8 ####[facility] CENTERLIA [id number] [place] [address] [place] ALT [Catalytic activity/Vol] 15 U/L Normal 7-38 [facility] Comment on above: Order Comment: Kari tamera Type: BLOOD SPECIMENOrdering Facility: [facility] Address: [address] [place] [address] Performed By: #### 2 4323-8 ####[facility]ITALNCLIA [id number] [place] [address] [place] Anion gap [Moles/Vol] 11 mmol/L Normal 8-15 [facility] Comment on above: Order Comment: Speci men Type: BLOOD SPECIMENOrdering Facility: [facility] Address: [address] [place] [address] Performed By: #### 2 4323-8 ####[facility]ITALNCLIA [id number] [place] [address] [place] AST [Catalytic activity/Vol] 24 U/L Normal 13-35 [facility] Comment on above: Order Comment: Speci men Type: BLOOD SPECIMENOrdering Facility: [facility] Address: [address] [place] [address] Performed By: #### 2 4323-8 ####[facility]OSPITALNCLibia [id number] [place] [address] [place] Bilirubin [Mass/Vol] 0.2 mg/dL Normal 0.2-1.3 [facility] Comment on above: Order Comment: Speci men Type: BLOOD SPECIMENOrdering Facility: [facility] Address: [address] [place] [address] Performed By: #### 2 4323-8 ####[facility]ITALNCLIA [id number] [place] [address] [place] Calcium [Mass/Vol] 9.9 mg/dL Normal 8.5-10.2 [facility] Comment on above: Order Comment: Speci men Type: BLOOD SPECIMENOrdering Facility: [facility] Address: [address] [place] [address] Performed By: #### 2 4323-8 ####[facility]ITALNCLIA [id number] [place] [address] [place] Chloride [Moles/Vol] 105 mmol/L Normal 98-107 [facility] Comment on above: Order Comment: Speci men Type: BLOOD SPECIMENOrdering Facility: [facility] Address: [address] [place] [address] Performed By: #### 2 4323-8 ####[facility]ITALNCLIA [id number] [place] [address] [place] CO2 [Moles/Vol] 27 mmol/L Normal 22-30 [facility] Comment on above: Order Comment: Speci men Type: BLOOD SPECIMENOrdering Facility: [facility] Address: [address] [place] [address] Performed By: #### 2 4323-8 ####[facility]ITALNCLIA [id number] [place] [address] [place] Creatinine [Mass/Vol] 0.71 mg/dL Normal 0.58-0.96 [facility] Comment on above: Order Comment: Speci men Type: BLOOD SPECIMENOrdering Facility: [facility] Address: [address] [place] [address] Performed By: #### 2 4323-8 ####[facility] [id number] [place] [address] [place] Creatinine and Glomerular filtration rate.predicted panel (S/P/Bld) 94 mL/min/1.73m??? Normal >=60 [facility] Comment on above: Order Comment: Speci men Type: BLOOD SPECIMENOrdering Facility: [facility] Address: [address] [place] [address] Result Comment: Nikia mated Glomerular Filtration Rate (eGFR) is calculated using the 2020 CKD-EPI creatinine equation. This equation utilizes serum creatinine, sex, and age as parameters. The creatinine assay has traceable calibration to isotope dilution-mass spectrometry. Refer to KDIGO guidelines for clinical interpretation. In patients with unstable renal function, e.g. those with acute kidney injury, the eGFR may not accurately reflect actual GFR. Performed By: #### 2 4323-8 ####[facility] HOS[facility]ITALWNCLIA [id number] [place] [address] [place] Glucose [Mass/Vol] 102 mg/dL High 74-99 [facility] Comment on above: Order Comment: Speci men Type: BLOOD SPECIMENOrdering Facility: [facility] [facility] Address: [address] [place] [address] Result Comment: The [place] [employer] (ADA) provides guidance for cutoff values for fasting glucose and random glucose. The ADA defines fasting as no caloric intake for at least 8 hours. Fasting plasma glucose results between 100 to 125 mg/dL indicate increased risk for diabetes (prediabetes).Fasting plasma glucose results greater than or equal to 126 mg/dL meet the criteria for diagnosis of diabetes. In the absence of unequivocal hyperglycemia, results should be confirmed by repeat testing. In a patient with classic symptoms of hyperglycemia or hyperglycemic crisis, random plasma glucose results greater than or equal to 200 mg/dL meet the criteria for diagnosis of diabetes.Reference: Standards of Medical Care in Diabetes 2016, [place] [employer]. Diabetes Care. 2016.39(Suppl 1). Performed By: #### 2 4323-8 ####[facility]ITALDEVANTELibia [id number] [place] [address] [place] Potassium [Moles/Vol] 3.3 mmol/L Low 3.7-5.1 [facility] Comment on above: Order Comment: Kari men Type: BLOOD SPECIMENOrdering Facility: [facility] Address: [address] [place] [address] Performed By: #### 2 4323-8 ####[facility]ITALRUBEN [id number] [place] [address] [place] Protein [Mass/Vol] 7.2 g/dL Normal 6.3-8.0 [facility] Comment on above: Order Comment: Speci men Type: BLOOD SPECIMENOrdering Facility: [facility] Address: [address] [place] [address] Performed By: #### 2 4323-8 ####[facility]ITALDEVANTELILibia [id number] [place] [address] [place] Sodium [Moles/Vol] 143 mmol/L Normal 136-144 [facility] Comment on above: Order Comment: Speci men Type: BLOOD SPECIMENOrdering Facility: [facility] Address: [address] [place] [address] Performed By: #### 2 4323-8 ####[facility] [id number] [place] [address] [place] Urea nitrogen [Mass/Vol] 14 mg/dL Normal 7-21 [facility] Comment on above: Order Comment: Speci men Type: BLOOD SPECIMENOrdering Facility: [facility] Address: [address] [place] [address] Performed By: #### 2 4323-8 ####[facility]ITALNCLI [id number] [place] [address] [place] G lamblia+Cryptosp Ag Stl Ql IAon 03-12-2024 G. lamblia+Cryptosporidium sp Ag IA Ql (Stl) CRYPTOSPORIDIUM ANTIGEN BY EIA: Negative for Cryptosporidium by EIA. GIARDIA ANTIGEN BY EIA: Negative for Giardia lamblia by EIA. Normal [facility] Comment on above: Performed By: #### 4 8059-0 ####[facility] LABCLIA [id number] [place] [address] [place] Hemoccult Stl Ql IAon 2024 Lower GI hemoglobin IA Ql (Stl) Negative Normal Negative [facility] Comment on above: Order Comment: Speci men Type: STOOL SPECIMENOrdering Facility: [facility] Address: [address] [place] [address] Performed By: #### 2 9771-3 ####[facility] LABCLIA [id number] [place] [address] [place] IgA SerPl-mCncon 03-12-2024 IgA [Mass/Vol] 193 mg/dL Normal 70-400 [facility] Comment on above: Order Comment: Speci men Type: BLOOD SPECIMENOrdering Facility: [facility] Address: [address] [place] [address] Performed By: #### 2 458-8 ####[facility] LABIA [id number] [place] [address] [place] T4 Free SerPl-mCncon 025 Free T4 [Mass/Vol] 1.2 ng/dL Normal 0.9-1.7 [facility] Comment on above: Order Comment: Speci men Type: BLOOD SPECIMENOrdering Facility: [facility] Address: [address] [place] [address] Performed By: #### 3 024-7, 3016-3 ####[facility] LABIA [id number] [place] [address] [place] TSH SerPl-aCncon 03-12-2024 TSH Qn 1.650 m[IU]/L Normal 0.270-4.200 [facility] Comment on above: Order Comment: Speci men Type: BLOOD SPECIMENOrdering Facility: [facility] Address: [address] [place] [address] Performed By: #### 3 024-7, 3016-3 ####[facility] [id number] [place] [address] [place] CNTHERAPYon 03-08-2024 CNTHERAPY Normal [facility] THERAPY NTon 03-08-2024 THERAPY NT Normal [facility] CNTHERAPYon 02-29-2024 CNTHERAPY Normal [facility] CNPNon 02-02-2024 CNPN Normal [facility] Surgery Visit Reporton 01-30 Surgery Visit Report [facility] [address] [place], [place] [address] OFFICE VISIT Date of Service: 01/31/24 MR#: [id number] Acct: [id number] Name: MARASHAKIRA CANTRELL ITALIA Rep #: [id number] : 1960 Provider: JELANI henry Age/Sex: 63/F Location: [facility] [address] Status: Signed Intake Vital Signs 01/03/24 00:37 Height 5 ft 6 in Intake Visit Reasons: APPENDICITIS DOS 01/01 Chief Complaint: f/u appey Quantitative Developer Required: No Is patient in pain?: No Allergies anastrozole (From Arimidex) Allergy (Verified 01/31/24 08:14) Unknown exemestane (From Aromasin) Allergy (Verified 01/31/24 08:14) Unknown letrozole Allergy (Verified 01/31/24 08:14) Unknown tamoxifen Allergy (Verified 01/31/24 08:14) Unknown Medications ???Medication ???Instructions ???Recorded ???Confirmed ???Type biotin 5 mg capsule 5 mg PO QDAY 01/31/24 01/31/24 History duloxetine 30 mg capsule,delayed 30 mg PO BID 01/31/24 01/31/24 History release meloxicam 15 mg tablet 15 mg PO QDAY 01/31/24 01/31/24 History methocarbamol 500 mg tablet 500 mg PO TID 01/31/24 01/31/24 History multivitamin 1 tab PO QAM 01/31/24 01/31/24 History Have you fallen in the past year?: No Subjective Details: Patient returns for a follow-up. She notes feeling much improved. She notes she still has intermittent nausea, however she is still able to eat. She notes her appetite has picked. She notes it's not back to complete normal, however improved since last visit. She notes intermittent constipation, however she recently changed medications for orthopedic/spasm issues, which may contribute to change in bowel habits. Objective Details: Abdomen- incisions c/d/i. No erythema or infection noted. Coding Level of Care Code Global Post Op Diagnoses S/P appendectomy Z90.49 [facility] Medical History Hx of gastritis Leukocytosis History of colitis Abdominal pain Acute appendicitis GERD (gastroesophageal reflux disease) COPD (chronic obstructive pulmonary disease) Breast CA Surgical History (Updated 01/17/24 @ 11:10 by Tash PATEL PA-C) S/P appendectomy H/O total hysterectomy Hx of mastectomy Family History Sister Colon cancer Anemia Father Anemia Myocardial infarction Father Bowel disease Heart disease Social History Smoking Status: Former smoker quit date: 05/14/21 substance use type: does not use Assessment and Plan (No Qualifiers) Assessment and Plan (1) S/P appendectomy: Status: Acute Plan: Patient seems to be progressing well Plan to RTW on 02/08/24 Follow-up as needed 01/31/24 1041 Date Tash Davenport Signature: Date (if applicable) CC: Dr. Christiano Wooten MD [facility] Surgery Visit Reporton 01-16 Surgery Visit Report [facility] [address] [place], [place] [address] OFFICE VISIT Date of Service: 01/17/24 MR#: [id number] Acct: [id number] Name: SHAKIRA FRANKLIN Rep #: [id number] : 1960 Provider: JELANI henry Age/Sex: 63/F Location: [facility] [address] Status: Signed Intake Vital Signs 01/03/24 00:37 Height 5 ft 6 in Intake Visit Reasons: APPENDICITIS DOS 01/01 Chief Complaint: f/u appey Quantitative Developer Required: No Is patient in pain?: No Allergies anastrozole (From Arimidex) Allergy (Verified 01/17/24 09:10) Unknown exemestane (From Aromasin) Allergy (Verified 01/17/24 09:10) Unknown letrozole Allergy (Verified 01/17/24 09:10) Unknown tamoxifen Allergy (Verified 01/17/24 09:10) Unknown Medications ???Medication ???Instructions ???Recorded ???Confirmed ???Type naproxen 500 mg tablet 500 mg PO BID PRN PRN pain 01/02/24 01/17/24 History pregabalin 75 mg capsule 75 mg PO BID pain 01/02/24 01/17/24 History Have you fallen in the past year?: No Subjective Details: Patient is a 63 y/o F I am following s/p laparoscopic appendectomy with Dr. Ballard on 01/02/24. Patient tolerated the procedure well. She notes intermittent abdominal spasms at night time which resolve within seconds. She notes nausea throughout the day. She notes only eating breakfast at this time. She notes her bowel habits have not returned to normal. She notes her stool color has been the color of the food items she is eating. She notes still feeling bloated. She notes energy level has not returned. Objective Details: Abdomen- soft, slightly distended, hypoactive bowel sounds. Incisions c/d/i. No erythema or infection noted. There is a very small pimple-like structure inferior to the umbilical incision completely separate from the incision. Bacitracin was applied to the area followed by a spot band- aid. Coding Level of Care Code Global Post Op Diagnoses S/P appendectomy Z90.49 [facility] Medical History Hx of gastritis Leukocytosis History of colitis Abdominal pain Acute appendicitis GERD (gastroesophageal reflux disease) COPD (chronic obstructive pulmonary disease) Breast CA Surgical History (Updated 01/17/24 @ 11:10 by Tash PATEL, PA-C) S/P appendectomy H/O total hysterectomy Hx of mastectomy Family History Sister Colon cancer Anemia Father Anemia Myocardial infarction Father Bowel disease Heart disease Social History Smoking Status: Former smoker quit date: 05/14/21 substance use type: does not use Assessment and Plan (No Qualifiers) Assessment and Plan (1) S/P appendectomy: Status: Acute Plan: Recommend no lifting greater than 20 pounds for 2 weeks Recommend no return to work for 3 weeks Will send updated [facility] paperwork Discussed adding in a high protein snack multiple times through the day Discussed this may be the cause of her nausea that she is not eating throughout the day. We discussed a better regimen. We discussed her bowel habits are likely due to her diet not being back to normal. I am also recommending applying Bacitracin to the very small pimple-like area and keep covered over the next 3 days changing the bandage daily. Patient will return to the office in 2 weeks to follow-up and be released potentially back to work Patient to contact our office sooner if any changes Patient's daughter was present with her today 01/17/24 1126 Date Tash Davenport Signature: Date (if applicable) CC: Dr. Ra Ballard MD; Dr. Christiano Wooten MD Normal [facility] Culture, Blood (WB)on 2023 CUB Blood cultures x2 fr om two different sites No growth in 5 days. Normal [facility] Comment on above: Performed By: #### L 100.0100, M200.1000, L501.2450, L500.4050 #### [facility] [address] [place], [address] Basic Metabolic Profile (BMP )on 01-03-2024 BUN/CRE 19.0 RATIO Normal 12-02 [facility] Comment on above: Performed By: #### L 500.2500, L100.0100 #### [facility] [address] [place], [address] CA,Total 8.5 mg/dL Normal 8.5-10.1 [facility] Comment on above: Performed By: #### L 500.2500, L100.0100 #### [facility] [address] [place], [address] Chloride [Moles/Vol] 111 mmol/L High 98-107 [facility] Comment on above: Performed By: #### L 500.2500, L100.0100 #### [facility] [address] [place], [address] CO2 [Moles/Vol] 25.0 mmol/L Normal 21.0-32.0 [facility] Comment on above: Performed By: #### L 500.2500, L100.0100 #### [facility] [address] [place], [address] Creatinine [Mass/Vol] 0.79 mg/dL Normal 0.55-1.02 [facility] Comment on above: Result Comment: The validity of the calculated GFR GFRAA in patients over 70 years has not been determined. Clinical correlation is essential. Performed By: #### L 500.2500, L100.0100 #### [facility] [address] [place], [address] ECRCL 65.63 ml/min Normal [facility] Comment on above: Performed By: #### L 500.2500, L100.0100 #### [facility] [address] [place], [address] EST GFR - AA 94 mL/min Normal >60 [facility] Comment on above: Result Comment: Afri can [place] GFR Calc Performed By: #### L 500.2500, L100.0100 #### [facility] [address] [place], [address] GAP 4 Low 5-15 [facility] Comment on above: Performed By: #### L 500.2500, L100.0100 #### [facility] [address] [place], [address] GFR/1.73 sq M.predicted among non-blacks MDRD (S/P/Bld) [Vol rate/Area] 78 mL/min/{1.73_m2} Normal >60 [facility] Comment on above: Result Comment: Non- GFR Calc Performed By: #### L 500.2500, L100.0100 #### [facility] [address] [place], [address] Glucose [Mass/Vol] 99 mg/dL Normal 74-106 [facility] Comment on above: Performed By: #### L 500.2500, L100.0100 #### [facility] [address] [place], [address] Potassium [Moles/Vol] 3.6 mmol/L Normal 3.5-5.1 [facility] Comment on above: Performed By: #### L 500.2500, L100.0100 #### [facility] [address] [place], [address] Sodium [Moles/Vol] 140 mmol/L Normal 136-145 [facility] Comment on above: Performed By: #### L 500.2500, L100.0100 #### [facility] [address] [place], [address] Urea nitrogen [Mass/Vol] 15 mg/dL Normal 7-18 [facility] Comment on above: Performed By: #### L 500.2500, L100.0100 #### [facility] [address] [place], [address] CBC W/Diff, Automatedon 11-2 0-4 Absolute Lymph 1.35 X10 3/uL Normal 0.83-4.51 [facility] Comment on above: Performed By: #### L 500.2500, L100.0100 #### [facility] [address] [place], [address] Absolute Neut 11.4 X10 3/uL High 2.0-7.7 [facility] Comment on above: Performed By: #### L 500.2500, L100.0100 #### [facility] [address] [place], [address] Basophils/100 WBC (Bld) 0.1 % Normal 0-1 [facility] Comment on above: Performed By: #### L 500.2500, L100.0100 #### [facility] [address] [place], [address] Eosinophils/100 WBC (Bld) 0.1 % Normal 0-5 [facility] Comment on above: Performed By: #### L 500.2500, L100.0100 #### [facility] [address] [place], [address] Erythrocyte distribution width (RBC) [Ratio] 13.8 % Normal 11.6-14.6 [facility] Comment on above: Performed By: #### L 500.2500, L100.0100 #### [facility] [address] [place], [address] Hematocrit (Bld) [Volume fraction] 32.2 % Low 37-47 [facility] Comment on above: Performed By: #### L 500.2500, L100.0100 #### [facility] [address] [place], [address] Hemoglobin (Bld) [Mass/Vol] 10.0 g/dL Low 12.0-15.0 [facility] Comment on above: Performed By: #### L 500.2500, L100.0100 #### [facility] [address] [place], [address] IG% 0.400 Normal 0.0-0.9 [facility] Comment on above: Result Comment: IG% - Immature Granulocytes (promyelocytes, myelocytes and metamyelocytes) > 1% indicates that a LEFT SHIFT is Present. Performed By: #### L 500.2500, L100.0100 #### [facility] [address] [place], [address] Lymphocytes/100 WBC (Bld) 10.0 % Low 19-41 [facility] Comment on above: Performed By: #### L 500.2500, L100.0100 #### [facility] [address] [place], [address] MCH (RBC) [Entitic mass] 27.9 pg Normal 27.0-32.0 [facility] Comment on above: Performed By: #### L 500.2500, L100.0100 #### [facility] [address] [place], [address] MCHC (RBC) [Mass/Vol] 31.1 g/dL Low 32-36 [facility] Comment on above: Performed By: #### L 500.2500, L100.0100 #### [facility] [address] [place], [address] MCV (RBC) [Entitic vol] 89.9 fL Normal 81-99 [facility] Comment on above: Performed By: #### L 500.2500, L100.0100 #### [facility] [address] [place], [address] Monocytes/100 WBC (Bld) 4.8 % Normal 0-10 [facility] Comment on above: Performed By: #### L 500.2500, L100.0100 #### [facility] [address] [place], [address] Neutrophils/100 WBC (Bld) 84.6 % High 47-70 [facility] Comment on above: Performed By: #### L 500.2500, L100.0100 #### [facility] [address] [place], [address] Nucleated RBC (Bld) [#/Vol] 0 10*3/uL Normal 0-5 [facility] Comment on above: Performed By: #### L 500.2500, L100.0100 #### [facility] [address] [place], [address] Platelet mean volume (Bld) [Entitic vol] 9.6 fL Normal 6.2-12.0 [facility] Comment on above: Performed By: #### L 500.2500, L100.0100 #### [facility] [address] [place], [address] Platelets (Bld) [#/Vol] 168 10*3/uL Normal 150-450 [facility] Comment on above: Performed By: #### L 500.2500, L100.0100 #### [facility] [address] [place], [address] RBC (Bld) [#/Vol] 3.58 10*6/uL Low 4.2-5.[address] [facility] Comment on above: Performed By: #### L 500.2500, L100.0100 #### [facility] [address] [place], [address] RDW SD 45.2 fl High 35.1-43.9 [facility] Comment on above: Performed By: #### L 500.2500, L100.0100 #### [facility] [address] [place], [address] WBC (Bld) [#/Vol] 13.5 10*3/uL High 4.4-11.[address] [facility] Comment on above: Performed By: #### L 500.2500, L100.0100 #### [facility] [address] [place], [address] Discharge Instructionon 12-15 Discharge Instruction [facility] Medical Records Department [address] [place] [address] Instructions for Home/Discharge Instructions 01/03/24 1408 MR#: [id number] Acct: [id number] Name: SHAKIRA FRANKLIN Rep #: [id number] : 1960 63 From: Tash PATEL PA-C PCP: Dr. Christiano Wooten MD Status:ADM BERNADINE Discharge Instructions Diet Discharge Diet: Light diet - advance as tolerated Activity Discharge Activity: May Not Drive (3-5 days or while taking narcotic pain medications) Lifting Restrictions: 10 pounds for 2 weeks. No strenuous activity for 4 weeks Dressing / Incision Call your doctor if your incision/area has: Continuous Slow Oozing, Sudden Increased Bleeding, Increased Pain/ Swelling, Increased Redness, Foul Smelling Discharge and Swelling at the incision site Call your doctor if you observe: Fever of 101 or Higher Suture Line Care: Avoid Pulling/Pushing and Avoid Pinching/Bending Remove Dressing in: 3 days Cleanse incision/area with: Soap Water Follow Up Care Please Follow Up With: Tash Marina PA-C When: Please call [phone], option #2 to schedule a 2 week follow-up Test Results: Test results from this visit will be discussed in further detail at your follow-up appointment, if applicable. Discharge Plan Admission Admit Date/Time: 01/03/24 00:00 Primary Reason for Your Visit: Acute appendicitis Attending Provider: Ra Ballard Primary Care Provider: Christiano Wooten Instructions Additional Instructions / Restrictions: Appendectomy Diet ??? Start light with soups and soft bland foods. You may advance diet as tolerated. Activity ??? You may drive in 3-5 days but not while taking narcotic pain medication. ??? I encourage walking. You may go up steps, one at a time. ??? Do not swim or use hot tubs for 2 weeks. ??? For comfort, you may use warm compresses or ice as needed for 15-20 minutes at a time. Lifting ??? You may lift up to 10 pounds for the 2 weeks. No strenuous activity for 4 weeks. Dressings/Incision ??? You may shower OVER your plastic dressings ??? Do NOT tub bathe for 1 week ??? Leave plastic dressings on for 3 days. ??? When plastic dressings are removed, you will find steri-strips. It is okay to continue showering with them in place, pat them dry. ??? You may remove steri-strips after 1 week. We recommend getting them soaking wet for easier removal. Medications ??? Anesthesia used during surgery and pain medications may cause constipation. I recommend initiating on the day of surgery a fiber supplement like, Metamucil, Citrucel, FiberCon, Benefiber, or a generic form of these medications. 1 heaping tablespoon in water daily. You may continue to utilize any bowel regimen or oral laxatives that you routinely take. ??? As long as you are not intolerant to Tylenol, acetaminophen, ibuprofen, Motrin, Advil, Aleve, or similar medications, I would recommend transitioning to these spwz-anx-bnxpgnm medicines as soon as possible instead of continued use of narcotic pain medication. Follow up ??? You should call [facility] soon after surgery, at [phone] option 2 to make a follow up appointment for 14 days after your surgery. Discharge Orders/Prescriptions Prescriptions: New oxycodone 5 mg Tablet 5 mg PO Q6H PRN PRN (Reason: Pain Score 6-10) 3 Days Qty: 9 0RF Continued naproxen 500 mg tablet 500 mg PO BID PRN PRN (Reason: pain) pregabalin 75 mg capsule 75 mg PO BID Referrals / Follow Up: Christiano Wooten MD [Primary Care Provider] - Tash Marina PA-C [Med Staff - [facility] Practice Prof] - 01/17/24 (Please call for a 2 week appointment) Disposition Disposition (needs filled in before D/C Order can be placed): Home, Self Care 01/03/24 1417 Tash PATEL PA-C CC: Dr. Christiano Wooten MD Signed [facility] MR/POSTOP.EAN 01-03-2024 MR/POSTOP.[facility] Medical Records Department [address] [place] [address] Anesthesia Postop Eval I 01/03/24 0019 MR#: [id number] Acct: [id number] Name: SHAKIRA FRANKLIN Rep #: [id number] : 1960 63 From: Bryson Sloan PCP: Dr. Christiano Wooten MD Status:REG SDC Y Race: C Location: [place] [address] Anesthesia: Postop Eval I Current Vital Signs Temperature: 98.4 F Pulse Rate: 84 Blood Pressure: 119/74 Respiratory Rate: 17 Pulse Ox: 100 Assessment Airway patent: Yes Spontaneous unlabored respirations: Yes nausea: No Vomiting: No Anesthesia Complication: No Fluid Hydration Crystalloid volume administer (ml): 400 Total IV fluid infused: 400 Progress Note Anesthesia document: Postop Eval 1 completed: Yes 01/03/24 002 Date Bryson Sloan Cosigner Signature: Date CC: Signed Normal [facility] MR/[id number] 01-03-2024 [facility] Medical Records Department [address] [place] [address] Anesthesia Postop Eval II 01/03/2419 MR#: [id number] Acct: [id number] Name: SHAKIRA FRANKLIN Rep #: [id number] : 1960 63 From: Bryson Sloan PCP: Dr. Christiano Wooten MD Status:REG [facility] Y Race: C Location: [place] [id number] Anesthesia Postop Eval I Sum Postop Eval Completion status Anesthesia document: Postop Eval 1 completed: Yes Anesthesia Postop Eval I Summary Anesthesia Postop Eval I Summary: Anesthesia Postop Eval I: Assessment Summary Airway patent Yes 01/03/24 00:19 KLYSTROM TUBE TESTER.JCOTE Spontaneous unlabored Yes 01/03/24 00:19 KLYSTROM TUBE TESTER.JCOTE respirations Mental status nausea No 01/03/24 00:19 KLYSTROM TUBE TESTER.JCOTE Vomiting No 01/03/24 00:19 KLYSTROM TUBE TESTER.JCOTE Anesthesia Postop Eval I: Fluid Summary Crystalloid volume administer 400 01/03/24 00:19 KLYSTROM TUBE TESTER.JCOTE (ml) Colloids volume administered ( ml) Blood Product volume administered (ml) Total IV fluid infused 400 01/03/24 00:19 KLYSTROM TUBE TESTER.JCOTE Anesthesia Postop Eval I: Summary Notes Anesthesia Complication No 01/03/24 00:19 KLYSTROM TUBE TESTER.JCOTE Anesthesia Complication Comment: Post-operative progress note Anesthesia: Postop Eval II Evaluation Mental status: Awake Pain Level: 0 nausea: No Vomiting: No 01/03/24 0020 Date Bryson Sloan Cosigner Signature: Date CC: Signed Normal [facility] Abdomen/Pelvis W IV Cont ONL Yon 01-02-2024 Abdomen/Pelvis W IV Cont ONLY [facility] Imaging Services [address] [place] [address] Abdomen/Pelvis W IV Cont ONLY MR#: [id number] Acct: [id number] Name: SHAKIRA FRANKLIN Rep #: [id number] : 1960 F 63 From: Beto alvarado DO PCP: Dr. Christiano Wooten MD Status: REG ER Study: Abdomen/Pelvis W IV Cont ONLY Date of Exam: Exam# [id number] Ordering Dr: Martell Zhang MD ADDENDUM by Dr. Beto Montalvo DO on 01/02/24 at 2016 [id number] EXAM: CT ABDOMEN AND PELVIS WITH INTRAVENOUS CONTRAST CLINICAL INDICATION: lower abd pain TECHNIQUE: Helically acquired images were obtained of the abdomen and pelvis with intravenous contrast. This CT exam was performed using one or more of the following dose reduction techniques: automated exposure control, adjustment of the mA and/or kV according to patient size, and/or use of iterative reconstruction technique. CONTRAST: IV 100mL Isovue-370 COMPARISON: 07/08/2021 FINDINGS: LOWER THORAX: Coronary artery calcifications. Interstitial thickening in the basilar lungs and mild dependent airspace disease which may be atelectasis or pneumonia. No cardiomegaly. No significant pericardial effusion. ABDOMEN: LIVER: No significant abnormality. Homogeneous. No focal mass. GALLBLADDER AND BILE DUCTS: Variable density within the gallbladder lumen suggesting small stones and/or sludge. No secondary signs of acute cholecystitis. No intra- or extrahepatic biliary ductal dilation. PANCREAS: No significant abnormality. No focal cystic or solid mass. SPLEEN: No significant abnormality. Normal size without focal cystic or solid mass. ADRENALS: No significant abnormality. No nodules. KIDNEYS AND URETERS: No significant abnormality. Normal renal size and position. No hydronephrosis. STOMACH AND BOWEL: Diverticulosis of the colon without evidence of acute diverticulitis. No stomach or bowel distention. PELVIS: APPENDIX: There is typically appendix, there is a focal low-attenuation collection measuring approximately 1.5 cm which may be an early developing periappendiceal abscess. Abnormally distended fluid-filled appendix with possible small appendicoliths and associated periappendiceal inflammation. BLADDER: No significant abnormality. REPRODUCTIVE: Status post hysterectomy. ABDOMEN and PELVIS: INTRAPERITONEAL SPACE: No significant abnormality. No ascites or other fluid collection. No free air. BONES/JOINTS: Degenerative changes in the spine. No suspicious lytic or blastic abnormality. SOFT TISSUES: Bilateral mammoplasty implants are partially visualized. No discrete abdominal or pelvic wall hernia. VASCULATURE: Atherosclerosis of the aorta. No aneurysm.. LYMPH NODES: No significant abnormality. No enlarged lymph nodes. 01/02/242015 Date cc: Dr. Martell Zhang MD; Dr. Christiano Wooten MD * Signed ADDENDUM by Dr. Beto Montalvo DO on 01/02/[address]/Abdomen/Pelvis W IV Cont ONLY IMPRESSION: 1. Acute appendicitis. This is possibly complicated by a small periappendiceal abscess. No free air to indicate obvious perforation. 2. Interstitial thickening in the basilar lungs and mild dependent airspace disease which may be atelectasis or pneumonia. 3. Variable density within the gallbladder lumen suggesting small stones and/or sludge. No secondary signs of acute cholecystitis. 4. Diverticulosis of the colon without evidence of acute diverticulitis. N.B. : The above Results were Read Back by Beto Montalvo DO to Martell Zhang MD, and understanding confirmed on 01/02/2024 20:19:26 (ET). Electronically Signed: Beto Montalvo DO at 20:16 EST , 01/02/242025 Date cc: Dr. Martell Zhang MD; Dr. Christiano Wooten MD * Signed We are attempting to reach an attending provider to discuss findings. An addendum with communication details will be sent when the communication is complete. [id number] EXAM: CT ABDOMEN AND PELVIS WITH INTRAVENOUS CONTRAST CLINICAL INDICATION: lower abd pain TECHNIQUE: Helically acquired images were obtained of the abdomen and pelvis with intravenous contrast. This CT exam was performed using one or more of the following dose reduction techniques: automated exposure control, adjustment of the mA and/or kV according to patient size, and/or use of iterative reconstruction technique. CONTRAST: IV 100mL Isovue-370 COMPARISON: 07/08/2021 FINDINGS: LOWER THORAX: Coronary artery calcifications. Interstitial thickening in the basilar lungs and mild dependent airspace disease which may be atelectasis or pneumonia. No c (more content not included)... Normal [facility] CBC W/Diff, Automatedon 12-14 Absolute Lymph 0.72 X10 3/uL Low 0.83-4.51 [facility] Comment on above: Performed By: #### L 100.0100, M200.1000, L501.2450, L500.4050 #### [facility] [address] [place], [address] Absolute Neut 14.3 X10 3/uL High 2.0-7.7 [facility] Comment on above: Performed By: #### L 100.0100, M200.1000, L501.2450, L500.4050 #### [facility] [address] [place], [address] Basophils/100 WBC (Bld) 0.1 % Normal 0-1 [facility] Comment on above: Performed By: #### L 100.0100, M200.1000, L501.2450, L500.4050 #### [facility] [address] [place], [address] Eosinophils/100 WBC (Bld) 0.0 % Normal 0-5 [facility] Comment on above: Performed By: #### L 100.0100, M200.1000, L501.2450, L500.4050 #### [facility] [address] [place], [address] Erythrocyte distribution width (RBC) [Ratio] 13.4 % Normal 11.6-14.6 [facility] Comment on above: Performed By: #### L 100.0100, M200.1000, L501.2450, L500.4050 #### [facility] [address] [place], [address] Hematocrit (Bld) [Volume fraction] 36.3 % Low 37-47 [facility] Comment on above: Performed By: #### L 100.0100, M200.1000, L501.2450, L500.4050 #### [facility] [address] [place], [address] Hemoglobin (Bld) [Mass/Vol] 11.5 g/dL Low 12.0-15.0 [facility] Comment on above: Performed By: #### L 100.0100, M200.1000, L501.2450, L500.4050 #### [facility] [address] [place], [address] IG% 0.400 Normal 0.0-0.9 [facility] Comment on above: Result Comment: IG% - Immature Granulocytes (promyelocytes, myelocytes and metamyelocytes) > 1% indicates that a LEFT SHIFT is Present. Performed By: #### L 100.0100, M200.1000, L501.2450, L500.4050 #### [facility] [address] [place], [address] Lymphocytes/100 WBC (Bld) 4.5 % Low 19-41 [facility] Comment on above: Performed By: #### L 100.0100, M200.1000, L501.2450, L500.4050 #### [facility] [address] [place], [address] MCH (RBC) [Entitic mass] 27.7 pg Normal 27.0-32.0 [facility] Comment on above: Performed By: #### L 100.0100, M200.1000, L501.2450, L500.4050 #### [facility] [address] [place], [address] MCHC (RBC) [Mass/Vol] 31.7 g/dL Low 32-36 [facility] Comment on above: Performed By: #### L 100.0100, M200.1000, L501.2450, L500.4050 #### [facility] [address] [place], [address] MCV (RBC) [Entitic vol] 87.5 fL Normal 81-99 [facility] Comment on above: Performed By: #### L 100.0100, M200.1000, L501.2450, L500.4050 #### [facility] [address] [place], [address] Monocytes/100 WBC (Bld) 4.5 % Normal 0-10 [facility] Comment on above: Performed By: #### L 100.0100, M200.1000, L501.2450, L500.4050 #### [facility] [address] [place], [address] Neutrophils/100 WBC (Bld) 90.5 % High 47-70 [facility] Comment on above: Performed By: #### L 100.0100, M200.1000, L501.2450, L500.4050 #### [facility] [address] [place], [address] Nucleated RBC (Bld) [#/Vol] 0 10*3/uL Normal 0-5 [facility] Comment on above: Performed By: #### L 100.0100, M200.1000, L501.2450, L500.4050 #### [facility] [address] [place], [address] Platelet mean volume (Bld) [Entitic vol] 9.6 fL Normal 6.2-12.0 [facility] Comment on above: Performed By: #### L 100.0100, M200.1000, L501.2450, L500.4050 #### [facility] [address] [place], [address] Platelets (Bld) [#/Vol] 243 10*3/uL Normal 150-450 [facility] Comment on above: Performed By: #### L 100.0100, M200.1000, L501.2450, L500.4050 #### [facility] [address] [place], [address] RBC (Bld) [#/Vol] 4.15 10*6/uL Low 4.2-5.[address] [facility] Comment on above: Performed By: #### L 100.0100, M200.1000, L501.2450, L500.4050 #### [facility] [address] [place], [address] RDW SD 43.3 fl Normal 35.1-43.9 [facility] Comment on above: Performed By: #### L 100.0100, M200.1000, L501.2450, L500.4050 #### [facility] [address] [place], [address] WBC (Bld) [#/Vol] 15.9 10*3/uL High 4.4-11.[address] [facility] Comment on above: Performed By: #### L 100.0100, M200.1000, L501.2450, L500.4050 #### [facility] [address] [place], [address] Comprehensive Metabolic Prof ilon 01-02-2024 Albumin [Mass/Vol] 4.0 g/dL Normal 3.2-5.0 [facility] Comment on above: Performed By: #### L 100.0100, M200.1000, L501.2450, L500.4050 #### [facility] [address] [place], [address] Albumin/Globulin [Mass ratio] 1.3 {ratio} Normal 0.9-2.4 [facility] Comment on above: Performed By: #### L 100.0100, M200.1000, L501.2450, L500.4050 #### [facility] [address] [place], [address] ALK P 65 U/L Normal 45-117 [facility] Comment on above: Performed By: #### L 100.0100, M200.1000, L501.2450, L500.4050 #### [facility] [address] [place], [address] ALT [Catalytic activity/Vol] 28 U/L Normal 13-56 [facility] Comment on above: Performed By: #### L 100.0100, M200.1000, L501.2450, L500.4050 #### [facility] [address] [place], [address] AST [Catalytic activity/Vol] 29 U/L Normal 15-37 [facility] Comment on above: Performed By: #### L 100.0100, M200.1000, L501.2450, L500.4050 #### [facility] [address] [place], [address] Bilirubin [Mass/Vol] 0.70 mg/dL Normal 0.20-1.00 [facility] Comment on above: Result Comment: For patients on eltrombopag therapy, use of Dimension [place] TBIL is not recommended. Performed By: #### L 100.0100, M200.1000, L501.2450, L500.4050 #### [facility] [address] [place], [address] BUN/CRE 20.1 RATIO High 10-20 [facility] Comment on above: Performed By: #### L 100.0100, M200.1000, L501.2450, L500.4050 #### [facility] [address] [place], [address] CA,Total 9.5 mg/dL Normal 8.5-10.1 [facility] Comment on above: Performed By: #### L 100.0100, M200.1000, L501.2450, L500.4050 #### [facility] [address] [place], [address] Chloride [Moles/Vol] 108 mmol/L High 98-107 [facility] Comment on above: Performed By: #### L 100.0100, M200.1000, L501.2450, L500.4050 #### [facility] [address] [place], [address] CO2 [Moles/Vol] 25.0 mmol/L Normal 21.0-32.0 [facility] Comment on above: Performed By: #### L 100.0100, M200.1000, L501.2450, L500.4050 #### [facility] [address] [place], [address] Creatinine [Mass/Vol] 0.80 mg/dL Normal 0.55-1.02 [facility] Comment on above: Result Comment: The validity of the calculated GFR GFRAA in patients over 70 years has not been determined. Clinical correlation is essential. Performed By: #### L 100.0100, M200.1000, L501.2450, L500.4050 #### [facility] [address] [place], [address] ECRCL 65.63 ml/min Normal [facility] Comment on above: Performed By: #### L 100.0100, M200.1000, L501.2450, L500.4050 #### [facility] [address] [place], [address] EST GFR - AA 93 mL/min Normal >60 [facility] Comment on above: Result Comment: Afri can [place] GFR Calc Performed By: #### L 100.0100, M200.1000, L501.2450, L500.4050 #### [facility] [address] [place], [address] GAP 7 Normal 5-15 [facility] Comment on above: Performed By: #### L 100.0100, M200.1000, L501.2450, L500.4050 #### [facility] [address] [place], [address] GFR/1.73 sq M.predicted among non-blacks MDRD (S/P/Bld) [Vol rate/Area] 77 mL/min/{1.73_m2} Normal >60 [facility] Comment on above: Result Comment: Non- GFR Calc Performed By: #### L 100.0100, M200.1000, L501.2450, L500.4050 #### [facility] [address] [place], [address] Globulin (S) [Mass/Vol] 3.1 g/dL Normal 2.2-4.2 [facility] Comment on above: Performed By: #### L 100.0100, M200.1000, L501.2450, L500.4050 #### [facility] [address] [place], [address] Glucose [Mass/Vol] 118 mg/dL High 74-106 [facility] Comment on above: Result Comment: Fast ing Glucose result from 100 to 125 mg/dL suggests IMPAIRED HOMEOSTASIS per A.D.A. criteria. Performed By: #### L 100.0100, M200.1000, L501.2450, L500.4050 #### [facility] [address] [place], [address] Potassium [Moles/Vol] 3.7 mmol/L Normal 3.5-5.1 [facility] Comment on above: Performed By: #### L 100.0100, M200.1000, L501.2450, L500.4050 #### [facility] [address] [place], [address] Sodium [Moles/Vol] 140 mmol/L Normal 136-145 [facility] Comment on above: Performed By: #### L 100.0100, M200.1000, L501.2450, L500.4050 #### [facility] [address] [place], [address] T PROT 7.1 g/dL Normal 6.4-8.2 [facility] Comment on above: Performed By: #### L 100.0100, M200.1000, L501.2450, L500.4050 #### [facility] [address] [place], [address] Urea nitrogen [Mass/Vol] 16 mg/dL Normal 7-18 [facility] Comment on above: Performed By: #### L 100.0100, M200.1000, L501.2450, L500.4050 #### [facility] [address] [place], [address] Emergency Department Summary on 01-02-2024 Emergency Department Summary [facility] Medical Records Department [address] [place] [address] Emergency Department Summary 01/02/24 MR#: [id number] Acct: [id number] Name: SHAKIRA FRANKLIN Rep #: [id number] : 1960 63 From: Martell Zhang MD PCP: Dr. Christiano Wooten MD Status:REG [facility] [place] [facility] [place]-9 HPI HPI - GI History of Present Illness Chief Complaint: Abd Pain Informant: patient Abdominal Pain/Flank Pain Onset: Today and Hours Context: Gradual Onset Timing: Continuous Location: - (Bilateral lower quadrant abdominal pain primarily suprapubic and left lower quadrant.) Current Severity: Mild Maximum Severity: Moderate Worsened by: Nothing Relieved by: Nothing Nausea/Vomiting/Emesis GI Symptom: Positive for Nausea and Vomiting Onset: Today Severity: Mild Diarrhea/Melena/Hematoch ezia GI Symptom: Positive for Diarrhea Onset: Today Severity: Mild Associated Symptoms Associated Symptoms: Negative for Dysuria, Frequency, Hematuria or Urgency Narrative Narrative: 63-year-old female history of COPD and prior breast cancer. Prior hysterectomy with her ovaries still in place. Said around 3 AM this morning she developed lower quadrant abdominal pain primarily suprapubic. Associated nausea and vomiting. Loose stools and subjective fever. No dysuria. No trauma. Prior similar symptoms: No Recent Illness/Hospitalization: No PFSH PFS Medical History GERD (gastroesophageal reflux disease) COPD (chronic obstructive pulmonary disease) Breast CA Home Medications ???Medication ???Instructions ???Recorded ???Last Taken ???Type biotin 1 mg capsule 2 mg PO QWEEK 03/06/17 Unknown History mv-min-vit F-mivc-uwvngr tammy-herb 1 ea PO PRN PRN Not Specified 03/06/17 Unknown History #124 250 mg-12.5 mg chewable tablet (Airborne (with lysine acetate)) varenicline 0.5 mg tablet 0.5 mg PO BID 07/08/21 Unknown History albuterol sulfate 90 mcg/actuation 1 - 2 puff inhalation Q4H PRN PRN 07/28/21 Unknown Rx aerosol inhaler (Ventolin HFA) Wheezing ##1 Allergy/AdvReac Type Severity Reaction Status Date / Time anastrozole (From Arimidex) Allergy Unknown Verified 01/02/24 17:46 exemestane (From Aromasin) Allergy Unknown Verified 01/02/24 17:46 letrozole Allergy Unknown Verified 01/02/24 17:46 tamoxifen Allergy Unknown Verified 01/02/24 17:46 Family History Sister Colon cancer Anemia Father Anemia Myocardial infarction Father Bowel disease Heart disease Surgical History H/O total hysterectomy Hx of mastectomy Social History Smoking Status: Former smoker quit date: 05/14/21 substance use type: does not use ROS ROS ED ROS Narrative Lower abdominal pain. Subjective fever. Nausea and vomiting. Loose stools. Constitutional Constitutional ED: Reports fever(s) and subjective ENT ENT ED: Denies ear pain Cardiovascular Cardiovascular: Denies chest pain Respiratory/Chest Respiratory/Chest: Denies cough or dyspnea Gastrointestinal Gastrointestinal: Reports abdominal pain, diarrhea, nausea and vomiting Genitourinary Genitourinary ED: Denies dysuria or hematuria Musculoskeletal Musculoskeletal: Denies arthralgias Integumentary Denies abscess Neurologic Neurologic: Denies headache(s) Psychiatric Psychiatric: Denies anxiety Endocrine Endocrinology: Denies polydipsia or polyphagia Hematologic/Lymphatic Hematologic/Lymphatic: Denies easy bleeding Allergic/Immunologic Allergic/Immunologic ED: Denies mouth swelling or tongue swelling EXAM Physical Exam Narrative Exam Narrative: 63-year-old female vital signs are stable afebrile. H EENT exam unremarkable. Neck nontender. Lungs clear. Heart regular rate and rhythm rate about 65 no murmur. Abdomen soft, nondistended. Normal bowel sounds. Tender primarily suprapubic and left lower quadrant. Mild right lower quadrant. No hernia or mass. No obstruction. No pulsatile mass. Moving all 4 extremities. Nontender no edema. She is awake and alert. No focal motor deficits. Const Vital Signs: 01/02/24 17:47 01/02/24 18:51 01/02/24 19:15 Temperature 99.3 F H 99.3 F H Temperature Source Oral Oral Pulse Rate 65 Respiratory Rate 20 H Blood Pressure 125/71 H Blood Pressure Mean 89 Pulse Ox 96 88 96 Oxygen Delivery Method Room Air Room Air Nasal Cannula Oxygen Flow Rate (L/min) 2 Positive well nourished and well developed; Negative for cachectic, contractures or unkempt General Appearance ED: well developed and NAD; Negative for unkempt, cachectic, contractures or pallor Nutritional Appearance: Negative for cachectic HEENT Repo (more content not included)... Normal [facility] Lipaseon 01-02-2024 Lipase [Catalytic activity/Vol] 47 U/L Normal 13-75 [facility] Comment on above: Result Comment: Medina mary note: LIPASE revised reference range effective 22. New Lipase methodology. Expected to produce lower values than the previous assay method. NEW Reference Range: 13 - 75 U/L Performed By: #### L 100.0100, M200.1000, L501.2450, L500.4050 #### [facility] [address] [facility], [address] Operative Reporton Operative Report [facility] Medical Records Department [address] [place] [address] Operative Report 01/02/24 2352 MR#: [id number] Acct: [id number] Name: SHAKIRA FRANKLIN Rep #: [id number] : 1960 63 From: Ra Ballard MD PCP: Dr. Christiano Wooten MD Status:[facility] Location: [place] [address] Operative Report (Standard) Operative Information Surgery/Procedure Performed: Laparoscopic appendectomy Surgeon: Ra Ballard Date of Procedure: 01/02/24 Procedure Start Time: 23:07 Procedure Stop Time: 23:59 Pre-Operative Diagnosis: Acute appendicitis Post-Operative Diagnosis: Acute uncomplicated appendicitis Select all DRAINS/GRAFTS/IMPLANTS that apply: None Type of Anesthesia: General/Supplemental Estimated Blood Loss: 5 Specimen collected: Yes Description of specimen(s) removed: Appendix Description of surgery: After appropriate identification in the preoperative holding area, the patient was brought to the operating room and placed supine on the operating room table. Antibiotics had been preoperatively administered. Patient was then induced with general endotracheal anesthetic. The abdomen was prepped and draped in usual sterile fashion. Formal timeout was conducted to confirm both the patient and the procedure. A supraumbilical incision was made and carried down to the level of the fascia which was sharply opened. After opening the peritoneum in like fashion a finger sweep was made to confirm position, and a balloon trocar was placed and pneumoperitoneum was established to 15 mmHg. Patient was positioned in Trendelenburg with the left side down. Two additional 5 mm trocars were placed in the left lower quadrant and suprapubic positions. The peritoneum was inspected and there were no signs of inadvertent injury from this [place] entry. The appendix was visualized with a mild to moderate degree of acute inflammation and dilatation. There is some periappendiceal exudate towards the tip but no evidence of perforation. Using blunt laparoscopic dissection, a window was made in the mesoappendix adjacent to the appendiceal base. The mesoappendix was carefully divided with application of a laparoscopic harmonic as I worked to separate it from the adherent small bowel mesentery to the terminal ileum. During this division I kept any transection of tissue adjacent to the body of the appendix to try to minimize the risk of compromising the blood supply to the small bowel. Then the base of the appendix was sealed and amputated with the use of an Endo EL stapler. The appendix was placed in an Endo Catch bag. The staple line was inspected for hemostasis and largely felt to be intact and a Ray-Donis sponge was placed into the peritoneal cavity and manual pressure was applied to the staple line to confirm hemostasis. After hemostasis was confirmed the appendix was removed from the umbilical port site. Pneumoperitoneum was then evacuated and the supraumbilical port site fascia was closed with #1 Vicryl in a ehlmzn-bi-ycmax fashion. The port sites were infiltrated with 20 mL local anesthetic. The skin of each port site was closed with 4-0 Monocryl in a subcuticular fashion. Steri-Strips and OpSite dressings were applied. Patient tolerated procedure well without any apparent complications. They were awoken from general anesthetic without issue and transferred to post anesthesia care unit for ongoing recovery. Surgical Findings: ??? Acutely inflamed and dilated appendix with some adjacent. Appendiceal exudate but no evidence of perforation or purulence. Appendix base was partially covered by both the sail of the appendix and the small bowel mesentery of the terminal ileum. 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 Ra Ballard MD; Dr. Christiano Wooten MD Signed Normal [facility] Surgery Specimen Level IIIon 01-02-2024 Surgery Specimen Level III Patient Age/Sex Location Account Attending Physician SHAKIRA FRANKLIN 63/F MS3 [id number] Dr. Ra Ballard MD Specimen: [id number] Received: 01/03/24 Status: ALFREDA Dickens Num: [id number] Spec Type: APPENDIX Subm Dr: Dr. Ra Ballard MD HEADER OPERATION: Laparoscopic appendectomy PRE-OP DIAGNOSIS: Acute appendicitis TISSUE SUBMITTED: Appendix MICROSCOPIC DIAGNOSIS Appendix, appendectomy: Acute appendicitis and periappendicitis. SJ. 01/04/2024 MICROSCOPIC DESCRIPTION Slides are reviewed. GROSS DESCRIPTION Received in fixative is one container labeled with the patient's name and designated appendix. The specimen consists of letter L shaped appendix measuring 9.0 cm in length and up to 1.0 cm in diameter. The attached periappendiceal adipose tissue measures up to 1.5 cm in width. The serosa is congested. No obvious perforation is identified. The lumen contains hemorrhagic material mixed with fecal material. No fecalith is identified. Assisted Living Manager sections are submitted in one cassette. / SJ:mr 01/03/2024 TC:2 CPT: 89676 Patient Age/Sex Location Account Attending Physician SHAKIRA FRANKLIN 63/F MS3 [id number] Dr. Ra Ballard MD Signed (signature on file) Dr. Tony Zuniga MD 01/04/24 1456 Normal [facility] Comment on above: Performed By: #### L 500.2500, L100.0100 #### [facility] [address] [place], [address] Urinalysis, Completeon 01-01 RBC 0-5 SEEN Normal 0-5 [facility] Comment on above: Order Comment: CLEAN CATCH Performed By: #### L 400.0001 #### [facility] [address] [place], [address] WBC 0-5 SEEN Normal 0-5 [facility] Comment on above: Order Comment: CLEAN CATCH Performed By: #### L 400.0001 #### [facility] [address] [place], [address] BACTERIA RARE Normal None Seen [facility] Comment on above: Order Comment: CLEAN CATCH Performed By: #### L 400.0001 #### [facility] [address] [place], [address] Mucus Ql (Urine sed) 2+ /hpf Normal [facility] Comment on above: Order Comment: CLEAN CATCH Performed By: #### L 400.0001 #### [facility] [address] [place], [address] EPI,SQUAMOUS 10-25 SEEN Normal 5-10 [facility] Comment on above: Order Comment: CLEAN CATCH Performed By: #### L 400.0001 #### [facility] [address] [place], [address] Bacteria Ur Culton 4 Bacteria identified Cx Nom (U) ORGANISM ID: 1 <10,000 CFU/ml Normal urogenital lance Normal [facility] Comment on above: Performed By: #### 6 30-4 ####[facility] LABCLIA [id number] [place] [address] [place] CNOVon 10-25-2023 CNOV Normal [facility] Urinalysis complete panel (U )on 10-25-2023 Bacteria LM.HPF (Urine sed) [#/Area] Negative Negative /HPF [facility] Bilirubin Ql (U) Negative Negative [facility] Clarity (Unsp spec) Clear Clear [facility] Color (U) Yellow Yellow [facility] Epithelial cells LM.HPF (Urine sed) [#/Area] Few /HPF [facility] Glucose Test strip (U) [Mass/Vol] Negative Negative [facility] Hemoglobin Ql (U) Negative Negative [facility] Hyaline casts (Urine sed) [#/Area] 0 /[LPF] 0 /LPF [facility] Interpretation and review of laboratory results Abnormal [facility] Ketones Ql (U) Negative Negative [facility] Leukocyte esterase Test strip Ql (U) Trace Abnormal Negative [facility] Nitrite Ql (U) Negative Negative [facility] pH (U) 6.5 [pH] NINF - 8.5 [facility] Protein (U) [Mass/Vol] Negative Negative Cl [facility] RBC LM.HPF (Urine sed) [#/Area] 0-2 /HPF 0-2 /HPF [facility] Specific gravity (U) [Rel density] 1.013 1.005 - 1.030 [facility] Urobilinogen Ql (U) 0.2 EU/dL 0.2-1.0 EU/dL [facility] WBC LM.HPF (Urine sed) [#/Area] 0-5 /HPF 0-5 /HPF [facility] This test was el[facility] and its performance characteristics determined by [facility]'s Guerrero [facility]ra [facility] Pathology and Laboratory Medicine [place] (RT-[facility]). It has not been cleared or approved by the FDA. [facility] is regulated under CLIA as qualified to perform high-complexity testing. This test is used for clinical purposes. It should not be regarded as investigational or for research. [facility] Bacteria LM.HPF (Urine sed) [#/Area] Negative Normal Negative [facility] Comment on above: Order Comment: Speci men Type: URINE SPECIMENOrdering Facility: [facility] Address: [address] [place] [address] Performed By: #### 2 4356-8 ####[facility] LABIA [id number] [place] [address] [place] Bilirubin Ql (U) Negative Normal Negative [facility] Comment on above: Order Comment: Speci men Type: URINE SPECIMENOrdering Facility: [facility] Address: [address] [place] [address] Performed By: #### 2 4356-8 ####[facility] LABIA [id number] [place] [address] [place] Clarity (Unsp spec) Clear Normal Clear [facility] Comment on above: Order Comment: Speci men Type: URINE SPECIMENOrdering Facility: [facility] Address: [address] [place] [address] Performed By: #### 2 4356-8 ####[facility] LABIA [id number] [place] [address] [place] Color (U) Yellow Normal Yellow [facility] Comment on above: Order Comment: Speci men Type: URINE SPECIMENOrdering Facility: [facility] Address: [address] [place] [address] Performed By: #### 2 4356-8 ####[facility] LABIA [id number] [place] [address] [place] Epithelial cells LM.HPF (Urine sed) [#/Area] Few Normal [facility] Comment on above: Order Comment: Speci men Type: URINE SPECIMENOrdering Facility: [facility] Address: [address] [place] [address] Performed By: #### 2 4356-8 ####[facility] LABCLIA [id number] [place] [address] [place] Glucose Test strip (U) [Mass/Vol] Negative Normal Negative [facility] Comment on above: Order Comment: Speci men Type: URINE SPECIMENOrdering Facility: [facility] Address: [address] [place] [address] Performed By: #### 2 4356-8 ####[facility] LABCLIA [id number] [place] [address] [place] Hemoglobin Ql (U) Negative Normal Negative [facility] Comment on above: Order Comment: Speci men Type: URINE SPECIMENOrdering Facility: [facility] Address: [address] [place] [address] Performed By: #### 2 4356-8 ####[facility] LABCLIA [id number] [place] [address] [place] Hyaline casts (Urine sed) [#/Area] 0 /[LPF] Normal 0 /LPF [facility] Comment on above: Order Comment: Speci men Type: URINE SPECIMENOrdering Facility: [facility] Address: [address] [place] [address] Performed By: #### 2 4356-8 ####[facility] LABCLIA [id number] [place] [address] [place] Ketones Ql (U) Negative Normal Negative [facility] Comment on above: Order Comment: Speci men Type: URINE SPECIMENOrdering Facility: [facility] Address: [address] [place] [address] Performed By: #### 2 4356-8 ####[facility] LABCLIA [id number] [address] [id number], [place] [address] [place] Leukocyte esterase Test strip Ql (U) Trace Abnormal Negative [facility] Comment on above: Order Comment: Speci men Type: URINE SPECIMENOrdering Facility: [facility] Address: [address] [place] [address] Performed By: #### 2 4356-8 ####[facility] LABCLIA [id number] [place] [address] [place] Nitrite Ql (U) Negative Normal Negative [facility] Comment on above: Order Comment: Speci men Type: URINE SPECIMENOrdering Facility: [facility] Address: [address] [place] [address] Performed By: #### 2 4356-8 ####[facility] LABCLIA [id number] [place] [address] [place] pH (U) 6.5 [pH] Normal <8.5 [facility] Comment on above: Order Comment: Speci men Type: URINE SPECIMENOrdering Facility: [facility] Address: [address] [place] [address] Performed By: #### 2 4356-8 ####[facility] LABCLIA [id number] [place] [address] [place] Protein (U) [Mass/Vol] Negative Normal Negative [facility] Comment on above: Order Comment: Speci men Type: URINE SPECIMENOrdering Facility: [facility] Address: [address] [place] [address] Performed By: #### 2 4356-8 ####[facility] LABCLIA [id number] [place] [address] [place] RBC LM.HPF (Urine sed) [#/Area] 0-2 /HPF Normal 0-2 /HPF [facility] Comment on above: Order Comment: Speci men Type: URINE SPECIMENOrdering Facility: [facility] Address: [address] [place] [address] Performed By: #### 2 4356-8 ####[facility] LABCLIA [id number] [place] [address] [place] Specific gravity (U) [Rel density] 1.013 Normal 1.005-1.030 [facility] Comment on above: Order Comment: Speci men Type: URINE SPECIMENOrdering Facility: [facility] Address: [address] [place] [address] Performed By: #### 2 4356-8 ####[facility] [id number] [place] [address] [place] Urobilinogen Ql (U) 0.2 EU/dL Normal 0.2-1.0 EU/dL [facility] Comment on above: Order Comment: Speci men Type: URINE SPECIMENOrdering Facility: [facility] Address: [address] [place] [address] Performed By: #### 2 4356-8 ####[facility] [id number] [place] [address] [place] WBC LM.HPF (Urine sed) [#/Area] 0-5 /HPF Normal 0-5 /HPF [facility] Comment on above: Order Comment: Speci men Type: URINE SPECIMENOrdering Facility: [facility] Address: [address] [place] [address] Performed By: #### 2 4356-8 ####[facility] [id number] [place] [address] [place] CNPNon 10-24-2023 CNPN Normal [facility] MRI LUMBAR SPINE WO IVCONon 10-19-2023 MRI LUMBAR SPINE WO IVCON * * *Final Report* * * DATE OF EXAM: Oct 19 2023 3:50PM LDM 0303 - MRI LUMBAR SPINE WO IVCON / PROCEDURE REASON: multiple diagnoses * * * * Physician Interpretation * * * * EXAMINATION: MRI LUMBAR SPINE WO IVCON CLINICAL HISTORY: Numbness and tingling of left lower extremity Numbness and tingling of left lower extremity Weakness of left lower extremity History of breast cancer TECHNIQUE: Routine lumbosacral spine MR protocol without gadolinium. MQ: [id number] COMPARISON: None. RESULT: Counting reference: Lumbosacral junction. For the purposes of this report, L4-5 is considered the level of the iliac crest and assume there are 5 lumbar-type vertebrae. Anatomic variant: None. Localizer images: No additional findings. Alignment: Alignment is anatomic. Bone marrow signal/fracture: No evidence of pathologic marrow infiltration. No evidence of prior fracture. Conus: The conus is within normal limits of signal intensity and morphology. Paraspinal soft tissues: Paraspinal soft tissues are within normal limits. Lower thoracic spine: Mild central disc protrusions at T8 11-12 and T12-L1 with minimal canal narrowing, no significant foraminal stenosis. L1-L2: Disc bulge with mild spinal canal and mild bilateral foraminal stenosis. L2-L3: Disc bulge with mild bilateral foraminal stenosis and mild spinal canal narrowing. L3-L4: Disc bulge and facet hypertrophy with mild spinal canal and mild lateral foraminal stenosis. L4-L5: Disc bulge with facet and ligamentous hypertrophy resulting in bjbh-nr-zkmzhzkv spinal canal and mild bilateral foraminal stenosis. L5-S1: Disc bulge with superimposed right paracentral/foraminal extrusion contributing to mild right foraminal stenosis. Left neural foramen and spinal canal are patent. Sacrum and iliac wings: The visualized sacrum and iliac wings are within normal limits. IMPRESSION: Mild degenerative changes of the lumbar and lower thoracic spine as discussed. No severe canal or severe foraminal stenosis. Anatomic Lumbar Variant: None. L4-5 is considered the level of the iliac crest and assume there are 5 lumbar-type vertebrae. Museum Director: PSCB Transcribe Date/Time: Oct 22 2023 3:08P Dictated by : FREDI ECHEVARRIA MD This examination was interpreted and the report reviewed and electronically signed by: FREDI ECHEVARRIA MD on Oct 22 2023 3:11PM EST [id number] [facility] CNPNon 10-09-2023 CNPN Normal [facility] CNTHERAPYon 10-09-2023 CNTHERAPY Normal [facility] CBC panel Auto (Bld)on 10-03 Erythrocyte distribution width (RBC) [Ratio] 13.6 % Normal 11.5-15.0 [facility] Comment on above: Order Comment: Speci men Type: BLOOD SPECIMENOrdering Facility: [facility] Address: [address] [place] [address] Performed By: #### 5 8410-2 ####[facility] LABIA [id number] [place] [address] [place] Hematocrit (Bld) [Volume fraction] 38.3 % Normal 36.0-46.0 [facility] Comment on above: Order Comment: Speci men Type: BLOOD SPECIMENOrdering Facility: [facility] Address: [address] [place] [address] Performed By: #### 5 8410-2 ####[facility] LABIA [id number] [place] [address] [place] Hemoglobin (Bld) [Mass/Vol] 12.2 g/dL Normal 11.5-15.5 [facility] Comment on above: Order Comment: Speci men Type: BLOOD SPECIMENOrdering Facility: [facility] Address: [address] [place] [address] Performed By: #### 5 8410-2 ####[facility] LABIA [id number] [place] [address] [place] MCH (RBC) [Entitic mass] 27.6 pg Normal 26.0-34.0 [facility] Comment on above: Order Comment: Speci men Type: BLOOD SPECIMENOrdering Facility: [facility] Address: [address] [place] [address] Performed By: #### 5 8410-2 ####[facility] LABIA [id number] [place] [address] [place] MCHC (RBC) [Mass/Vol] 31.9 g/dL Normal 30.5-36.0 [facility] Comment on above: Order Comment: Speci men Type: BLOOD SPECIMENOrdering Facility: [facility] Address: [address] [place] [address] Performed By: #### 5 8410-2 ####[facility] LABCLIA [id number] [place] [address] [place] MCV (RBC) [Entitic vol] 86.7 fL Normal 80.0-100.0 C [facility] Comment on above: Order Comment: Speci men Type: BLOOD SPECIMENOrdering Facility: [facility] Address: [address] [place] [address] Performed By: #### 5 8410-2 ####[facility] LABCLIA [id number] [place] [address] [place] Nucleated RBC (Bld) [#/Vol] 10*3/uL Normal <0.01 [facility] Comment on above: Order Comment: Speci men Type: BLOOD SPECIMENOrdering Facility: [facility] Address: [address] [place] [address] Performed By: #### 5 8410-2 ####[facility] LABIA [id number] [place] [address] [place] Platelet mean volume (Bld) [Entitic vol] 9.4 fL Normal 9.0-12.7 [facility] Comment on above: Order Comment: Speci men Type: BLOOD SPECIMENOrdering Facility: [facility] Address: [address] [place] [address] Performed By: #### 5 8410-2 ####[facility] LABCLIA [id number] [place] [address] [place] Platelets (Bld) [#/Vol] 278 10*3/uL Normal 150-400 [facility] Comment on above: Order Comment: Speci men Type: BLOOD SPECIMENOrdering Facility: [facility] Address: [address] [place] [address] Performed By: #### 5 8410-2 ####[facility] LABCLIA [id number] [place] [address] [place] RBC (Bld) [#/Vol] 4.42 10*6/uL Normal 3.90-5.20 [facility] Comment on above: Order Comment: Speci men Type: BLOOD SPECIMENOrdering Facility: [facility] Address: [address] [place] [address] Performed By: #### 5 8410-2 ####[facility] LABCLIA [id number] [place] [address] [place] WBC (Bld) [#/Vol] 5.36 10*3/uL Normal 3.70-11.00 [facility] Comment on above: Order Comment: Speci men Type: BLOOD SPECIMENOrdering Facility: [facility] Address: [address] [place] [address] Performed By: #### 5 8410-2 ####[facility] LABCLIA [id number] [place] [address] [place] CNOVon 10-04-2023 CNOV Normal [facility] CRP SerPl-mCncon 10-04-2023 CRP [Mass/Vol] 0.3 mg/dL Normal <0.9 [facility] Comment on above: Order Comment: Speci men Type: BLOOD SPECIMENOrdering Facility: [facility] Address: [address] [place] [address] Performed By: #### 1 988-5 ####[facility] LABCLIA [id number] [place] [id number] [place] Comprehensive metabolic 2000 panelon 10-04-2023 Albumin [Mass/Vol] 4.7 g/dL Normal 3.9-4.9 [facility] Comment on above: Order Comment: Speci men Type: BLOOD SPECIMENOrdering Facility: [facility] Address: [address] [place] [address] Performed By: #### 2 4323-8 ####[facility] LABCLIA [id number] [place] [address] [place] ALP [Catalytic activity/Vol] 69 U/L Normal 34-123 [facility] Comment on above: Order Comment: Speci men Type: BLOOD SPECIMENOrdering Facility: [facility] Address: [address] [place] [address] Performed By: #### 2 4323-8 ####[facility] LABCLIA [id number] [place] [address] [place] ALT [Catalytic activity/Vol] 23 U/L Normal 7-38 [facility] Comment on above: Order Comment: Speci men Type: BLOOD SPECIMENOrdering Facility: [facility] Address: [address] [place] [address] Performed By: #### 2 4323-8 ####[facility] LABCLIA [id number] [place] [address] [place] Anion gap [Moles/Vol] 11 mmol/L Normal 8-15 [facility] Comment on above: Order Comment: Speci men Type: BLOOD SPECIMENOrdering Facility: [facility] Address: [address] [place] [address] Performed By: #### 2 4323-8 ####[facility] LABCLIA [id number] [place] [address] [place] AST [Catalytic activity/Vol] 34 U/L Normal 13-35 [facility] Comment on above: Order Comment: Speci men Type: BLOOD SPECIMENOrdering Facility: [facility] Address: [address] [place] [address] Performed By: #### 2 4323-8 ####[facility] LABCLIA [id number] [place] [address] [place] Bilirubin [Mass/Vol] 0.2 mg/dL Normal 0.2-1.3 [facility] Comment on above: Order Comment: Speci men Type: BLOOD SPECIMENOrdering Facility: [facility] Address: [address] [place] [address] Performed By: #### 2 4323-8 ####[facility] LABCLIA [id number] [address] [address] [place] Calcium [Mass/Vol] 10.0 mg/dL Normal 8.5-10.2 [facility] Comment on above: Order Comment: Speci men Type: BLOOD SPECIMENOrdering Facility: [facility] Address: [address] [place], [place] [address] Performed By: #### 2 4323-8 ####[facility] LABCLIA [id number] [place] [address] [place] Chloride [Moles/Vol] 105 mmol/L Normal 98-107 [facility] Comment on above: Order Comment: Speci men Type: BLOOD SPECIMENOrdering Facility: [facility] Address: [address] [place], [place] [address] Performed By: #### 2 4323-8 ####[facility] LABCLIA [id number] [place] [address] [place] CO2 [Moles/Vol] 26 mmol/L Normal 22-30 [facility] Comment on above: Order Comment: Speci men Type: BLOOD SPECIMENOrdering Facility: [facility] Address: [address] [place], [place] [address] Performed By: #### 2 4323-8 ####[facility] LABCLIA [id number] [place] [id number] [place] Creatinine [Mass/Vol] 1.04 mg/dL High 0.58-0.96 [facility] Comment on above: Order Comment: Speci men Type: BLOOD SPECIMENOrdering Facility: [facility] Address: [address] [place] [address] Performed By: #### 2 4323-8 ####[facility] LABCLIA [id number] [place] [id number] [place] Creatinine and Glomerular filtration rate.predicted panel (S/P/Bld) 60 mL/min/1.73m??? Normal >=60 [facility] Comment on above: Order Comment: Anuj philip Type: BLOOD SPECIMENOrdering Facility: [facility] Address: [address] [place] [address] Result Comment: Nikia mated Glomerular Filtration Rate (eGFR) is calculated using the 2020 CKD-EPI creatinine equation. This equation utilizes serum creatinine, sex, and age as parameters. The creatinine assay has traceable calibration to isotope dilution-mass spectrometry. Refer to KDIGO guidelines for clinical interpretation. In patients with unstable renal function, e.g. those with acute kidney injury, the eGFR may not accurately reflect actual GFR. Performed By: #### 2 4323-8 ####[facility] LABCLIA [id number] [place] [address] [place] Glucose [Mass/Vol] 88 mg/dL Normal 74-99 [facility] Comment on above: Order Comment: Anuj philip Type: BLOOD SPECIMENOrdering Facility: [facility] Address: [address] [place] [address] Result Comment: The [place] [employer] (ADA) provides guidance for cutoff values for fasting glucose and random glucose. The ADA defines fasting as no caloric intake for at least 8 hours. Fasting plasma glucose results between 100 to 125 mg/dL indicate increased risk for diabetes (prediabetes).Fasting plasma glucose results greater than or equal to 126 mg/dL meet the criteria for diagnosis of diabetes. In the absence of unequivocal hyperglycemia, results should be confirmed by repeat testing. In a patient with classic symptoms of hyperglycemia or hyperglycemic crisis, random plasma glucose results greater than or equal to 200 mg/dL meet the criteria for diagnosis of diabetes.Reference: Standards of Medical Care in Diabetes 2016, [place] [employer]. Diabetes Care. 2016.39(Suppl 1). Performed By: #### 2 4323-8 ####[facility] LABCLIA [id number] [place] [address] [place] Potassium [Moles/Vol] 4.1 mmol/L Normal 3.7-5.1 [facility] Comment on above: Order Comment: Speci men Type: BLOOD SPECIMENOrdering Facility: [facility] Address: [address] [place] [address] Performed By: #### 2 4323-8 ####[facility] LABCLIA [id number] [place] [address] [place] Protein [Mass/Vol] 7.3 g/dL Normal 6.3-8.0 [facility] Comment on above: Order Comment: Speci men Type: BLOOD SPECIMENOrdering Facility: [facility] Address: [address] [place] [address] Performed By: #### 2 4323-8 ####[facility] LABCLIA [id number] [place] [address] [place] Sodium [Moles/Vol] 142 mmol/L Normal 136-144 [facility] Comment on above: Order Comment: Speci men Type: BLOOD SPECIMENOrdering Facility: [facility] Address: [address] [place] [address] Performed By: #### 2 4323-8 ####[facility] LABCLIA [id number] [place] [address] [place] Urea nitrogen [Mass/Vol] 16 mg/dL Normal 7-21 [facility] Comment on above: Order Comment: Speci men Type: BLOOD SPECIMENOrdering Facility: [facility] Address: [address] [place] [address] Performed By: #### 2 4323-8 ####[facility] LABCLIA [id number] [place] [address] [place] ESR Westergren method (Bld) [Velocity]on 10-04-2023 ESR (Bld) [Velocity] 10 mm/h Normal 0-20 [facility] Comment on above: Order Comment: Speci men Type: BLOOD SPECIMENOrdering Facility: [facility] Address: [address] [place] [address] Performed By: #### 4 537-7 ####[facility] LABCLIA [id number] [place] [address] [place] Urinalysis complete panel (U )on 10-04-2023 BACTERIA UL 4656.4 uL High Negative [facility] Comment on above: Order Comment: Speci men Type: URINE SPECIMENOrdering Facility: [facility] Address: [address] [place] [address] Performed By: #### 2 4356-8 ####[facility] LABCLIA [id number] [place] [address] [place] Bilirubin Ql (U) Negative Normal Negative [facility] Comment on above: Order Comment: Speci men Type: URINE SPECIMENOrdering Facility: [facility] Address: [address] [place] [address] Performed By: #### 2 4356-8 ####[facility] LABCLIA [id number] [place] [address] [place] CALCIUM OXALATE CRYSTALS (UA) Few Abnormal None Seen [facility] Comment on above: Order Comment: Speci men Type: URINE SPECIMENOrdering Facility: [facility] Address: [address] [place] [address] Performed By: #### 2 4356-8 ####[facility] LABCLIA [id number] [place] [address] [place] Clarity (Unsp spec) Cloudy Abnormal Clear [facility] Comment on above: Order Comment: Speci men Type: URINE SPECIMENOrdering Facility: [facility] Address: [address] [place] [address] Performed By: #### 2 4356-8 ####[facility] LABCLIA [id number] [place] [address] [place] Color (U) Yellow Normal Yellow [facility] Comment on above: Order Comment: Speci men Type: URINE SPECIMENOrdering Facility: [facility] Address: [address] [place] [address] Performed By: #### 2 4356-8 ####[facility] LABCLIA [id number] [address] Epithelial cells LM.HPF (Urine sed) [#/Area] Few Normal [facility] Comment on above: Order Comment: Speci men Type: URINE SPECIMENOrdering Facility: [facility] Address: [address] [place] [address] Performed By: #### 2 4356-8 ####[facility] LABCLIA [id number] [address] STATES OF [facility] Glucose Test strip (U) [Mass/Vol] Negative Normal Negative [facility] Comment on above: Order Comment: Speci men Type: URINE SPECIMENOrdering Facility: [facility] Address: [address] [place] [address] Performed By: #### 2 4356-8 ####[facility] LABCLIA [id number] [place] [address] [place] Hemoglobin Ql (U) Negative Normal Negative [facility] Comment on above: Order Comment: Speci men Type: URINE SPECIMENOrdering Facility: [facility] Address: [address] [place] [address] Performed By: #### 2 4356-8 ####[facility] LABCLIA [id number] [place] [address] [place] Hyaline casts (Urine sed) [#/Area] 0 /[LPF] Normal 0 /LPF [facility] Comment on above: Order Comment: Speci men Type: URINE SPECIMENOrdering Facility: [facility] Address: [address] [place] [address] Performed By: #### 2 4356-8 ####[facility] LABCLIA [id number] [id number], [place] [address] [place] Ketones Ql (U) Trace Abnormal Negative [facility] Comment on above: Order Comment: Speci men Type: URINE SPECIMENOrdering Facility: [facility] Address: [address] [place] [address] Performed By: #### 2 4356-8 ####[facility] LABCLIA [id number] [place] [address] [place] Leukocyte esterase Test strip Ql (U) Negative Normal Negative [facility] Comment on above: Order Comment: Speci men Type: URINE SPECIMENOrdering Facility: [facility] Address: [address] [place] [address] Performed By: #### 2 4356-8 ####[facility] LABCLIA [id number] [place] [address] [place] Nitrite Ql (U) Negative Normal Negative [facility] Comment on above: Order Comment: Speci men Type: URINE SPECIMENOrdering Facility: [facility] Address: [address] [place] [address] Performed By: #### 2 4356-8 ####[facility] LABCLIA [id number] [place] [address] [place] pH (U) 5.5 [pH] Normal <8.5 [facility] Comment on above: Order Comment: Speci men Type: URINE SPECIMENOrdering Facility: [facility] Address: [address] [place] [address] Performed By: #### 2 4356-8 ####[facility] LABCLIA [id number] [place] [address] [place] Protein (U) [Mass/Vol] 1+ Abnormal Negative Cl [facility] Comment on above: Order Comment: Speci men Type: URINE SPECIMENOrdering Facility: [facility] Address: [address] [place] [address] Performed By: #### 2 4356-8 ####[facility] LABCLIA [id number] [place] [address] [place] RBC LM.HPF (Urine sed) [#/Area] 3-5 /HPF Abnormal 0-2 /HPF [facility] Comment on above: Order Comment: Speci men Type: URINE SPECIMENOrdering Facility: [facility] Address: [address] [place] [address] Performed By: #### 2 4356-8 ####[facility] LABIA [id number] [place] [address] [place] Specific gravity (U) [Rel density] 1.042 High 1.005-1.030 [facility] Comment on above: Order Comment: Speci men Type: URINE SPECIMENOrdering Facility: [facility] Address: [address] [place] [address] Performed By: #### 2 4356-8 ####[facility] LABIA [id number] [place] [address] [place] Urobilinogen Ql (U) 1.0 EU/dL Normal 0.2-1.0 EU/dL [facility] Comment on above: Order Comment: Speci men Type: URINE SPECIMENOrdering Facility: [facility] Address: [address] [place] [address] Performed By: #### 2 4356-8 ####[facility] LABIA [id number] [place] [address] [place] WBC LM.HPF (Urine sed) [#/Area] 0-5 /HPF Normal 0-5 /HPF [facility] Comment on above: Order Comment: Speci men Type: URINE SPECIMENOrdering Facility: [facility] Address: [address] [place] [address] Performed By: #### 2 4356-8 ####[facility] LABIA [id number] [place] [address] [place] CNPNon 10-03-2023 CNPN Normal [facility] CNTHERAPYon 10-03-2023 CNTHERAPY Normal [facility] CNTHERAPYon 09-29-2023 CNTHERAPY Normal [facility] CNOVon 09-12-2023 CNOV Normal [facility] CNTHERAPYon 09-12-2023 CNTHERAPY Normal [facility] No Panel InformationOrdered By: Ccf Provider on 09-12-2023 [facility] No Panel Informationon 09-11 Radiology Study observation (narrative) [facility] XR HIP 3V PELV+ AP/LAT LTon 09-12-2023 XR HIP 3V PELV+ AP/LAT LT Normal [facility] XR LUMBAR 3V AP/LAT/L5-S1on 09-12-2023 XR LUMBAR 3V AP/LAT/L5-S1 Normal [facility] XR Lumbar spine 3 Viewson IMPRESSION: No acute fracture. Degenerative disease of the lumbar spine. Museum Director: JOHN Transcribe Date/Time: Sep 12 2023 3:32P Dictated by : PINA PEARCE MD This examination was interpreted and the report reviewed and electronically signed by: PINA PEARCE MD on Sep 12 2023 3:33PM [facility] DIVISION OF RADIOLOGY * * *Final Report* * * DATE OF EXAM: Sep 12 2023 3:10PM WOX 5228 - XR LUMBAR 3V AP/LAT/L5-S1 / PROCEDURE REASON: Acute left-sided low back pain with left-sided sciatica * * * * Physician Interpretation * * * * X-ray lumbosacral spine, AP, lateral and L5-S1 views Indication: Low back pain Comparison: X-ray lumbar spine 12/13/2018 Counting reference: Lumbosacral junction. For the purposes of this report, L5S1 is considered the last lumbar type disc space and L4-5 is considered the level of the iliac crest. There is normal architecture and mineralization of the bones. No fracture is visualized. There is good alignment of the vertebrae. There is mild degenerative disc disease at multiple levels of the lumbar spine with endplate sclerosis, intervertebral disc space narrowing and osteophyte formation. There is facet joint degenerative disease from L3 through S1. Sacroiliac joints appear normal. Vascular calcifications are noted. DIVISION OF RADIOLOGY Provider, Edwin calvin Oakley - 09/12/2023 * * *Final Report* * * DATE OF EXAM: Sep 12 2023 3:10PM WOX 5228 - XR LUMBAR 3V AP/LAT/L5-S1 / PROCEDURE REASON: Acute left-sided low back pain with left-sided sciatica * * * * Physician Interpretation * * * * X-ray lumbosacral spine, AP, lateral and L5-S1 views Indication: Low back pain Comparison: X-ray lumbar spine 12/13/2018 Counting reference: Lumbosacral junction. For the purposes of this report, L5S1 is considered the last lumbar type disc space and L4-5 is considered the level of the iliac crest. There is normal architecture and mineralization of the bones. No fracture is visualized. There is good alignment of the vertebrae. There is mild degenerative disc disease at multiple levels of the lumbar spine with endplate sclerosis, intervertebral disc space narrowing and osteophyte formation. There is facet joint degenerative disease from L3 through S1. Sacroiliac joints appear normal. Vascular calcifications are noted. IMPRESSION IMPRESSION: No acute fracture. Degenerative disease of the lumbar spine. Museum [facility] Transcribe Date/Time: Sep 12 2023 3:32P Dictated by : PINA PEARCE MD This examination was interpreted and the report reviewed and electronically signed by: PINA PEARCE MD on Sep 12 2023 3:33PM [facility] XR Pelvis and Hip - left AP and Lateral frogon 09-12-2023 IMPRESSION: No acute osseous abnormality Museum Director: [facility] Transcribe Date/Time: Sep 12 2023 3:34P Dictated by : PINA PEARCE MD This examination was interpreted and the report reviewed and electronically signed by: PINA PEARCE MD on Sep 12 2023 3:34PM [facility] DIVISION OF RADIOLOGY * * *Final Report* * * DATE OF EXAM: Sep 12 2023 3:10PM WOX 5351 - XR HIP 3V PELV+ AP/LAT LT / PROCEDURE REASON: Acute hip pain, left * * * * Physician Interpretation * * * * EXAMINATION: XR HIP 3V PELV+ AP/LAT LT CLINICAL HISTORY: Left hip pain Technique: XR HIP 3V PELV+ AP/LAT LT -- LEFT with 3 views on 3 images Comparison: None RESULT: No acute fracture or dislocation. Joint spaces are maintained. DIVISION OF RADIOLOGY Provider, [facility] Tonja Oakley - 09/12/2023 * * *Final Report* * * DATE OF EXAM: Sep 12 2023 3:10PM WOX 5351 - XR HIP 3V PELV+ AP/LAT LT / PROCEDURE REASON: Acute hip pain, left * * * * Physician Interpretation * * * * EXAMINATION: XR HIP 3V PELV+ AP/LAT LT CLINICAL HISTORY: Left hip pain Technique: XR HIP 3V PELV+ AP/LAT LT -- LEFT with 3 views on 3 images Comparison: None RESULT: No acute fracture or dislocation. Joint spaces are maintained. IMPRESSION IMPRESSION: No acute osseous abnormality Museum Director: JOHN Transcribe Date/Time: Sep 12 2023 3:34P Dictated by : PINA PEARCE MD This examination was interpreted and the report reviewed and electronically signed by: PINA PEARCE MD on Sep 12 2023 3:34PM EST [facility] CNOVon 09-08-2023 CNOV Normal [facility] CNOVon 09-01-2023 CNOV Normal [facility] CNPNon 08-03-2023 CNPN Normal [facility] JANE DIAGNOSTIC RTon 08-02-19 JANE DIAGNOSTIC RT Normal [facility] JANE US BREAST LTD RTon 08-01 JANE US BREAST LTD RT Normal [facility] MG Breast - right Diagnostic for implanton 08-02-2023 * * *Final Report* * * DATE OF EXAM: Aug 02 2023 2:53PM W 0626 - [facility] DIAGNOSTIC RT / PROCEDURE REASON: multiple diagnoses * * * * Physician Interpretation * * * * RESULT: #[id number] - [facility] DIAGNOSTIC RT UNILATERAL RIGHT DIGITAL DIAGNOSTIC MAMMOGRAM WITH CAD: 08/02/2023 HISTORY: Multiple Diagnoses/ rt axillary pain x 5 months /priors available for comparison. RESULT: TECHNIQUE: The study was acquired using full field digital technology and interpreted from soft copy. Current study was also evaluated with a Computer Aided Detection (CAD). Comparison is made to exams dated: 07/03/2023 mammogram, 06/28/2022 mammogram, 12/29/2021 mammogram, 11/19/2021 mammogram, and 12/11/2020 mammogram - [facility]. The right breast is heterogeneously dense, which may obscure small masses. Right breast implant is intact. The patient is status post mastectomy right breast. No significant masses or calcifications are seen in the breast. DIVISION OF RADIOLOGY Provider, [facility] Tonja [facility] - 08/02/2023 * * *Final Report* * * DATE OF EXAM: Aug 02 2023 2:53PM [facility] 0626 - [facility] DIAGNOSTIC RT / PROCEDURE REASON: multiple diagnoses * * * * Physician Interpretation * * * * RESULT: #[id number] - [facility] DIAGNOSTIC RT UNILATERAL RIGHT DIGITAL DIAGNOSTIC MAMMOGRAM WITH CAD: 08/02/2023 HISTORY: Multiple Diagnoses/ rt axillary pain x 5 months /priors available for comparison. RESULT: TECHNIQUE: The study was acquired using full field digital technology and interpreted from soft copy. Current study was also evaluated with a Computer Aided Detection (CAD). Comparison is made to exams dated: 07/03/2023 mammogram, 06/28/2022 mammogram, 12/29/2021 mammogram, 11/19/2021 mammogram, and 12/11/2020 mammogram - [facility]. The right breast is heterogeneously dense, which may obscure small masses. Right breast implant is intact. The patient is status post mastectomy right breast. No significant masses or calcifications are seen in the breast. IMPRESSION IMPRESSION: INCOMPLETE: NEEDS ADDITIONAL IMAGING EVALUATION There is no mammographic abnormality seen in the right breast to correspond with the pain and the skin retraction; however, further workup with ultrasound is recommended. Ranjith martinez/abdulkadir:08/02/2023 15:12:32 Director Of Graduate Medical Education(s): Tyson Paez RT(R)(M), [facility] Mammogram BI-RADS: 0 Incomplete: needs additional imaging evaluation Multiple national specialty organizations have released breast cancer screening guidelines for women at average risk for developing breast cancer - guidelines that are based on both evidence and opinion, yet differ on when to start and how often to screen for breast cancer. With representation from Breast Imaging, Internal Medicine, Women's Health, Family Medicine, and Medical/Surgical Oncology, the [facility] has carefully reviewed the data and reached the following consensus: 1) All women should engage in shared decision-making with their providers to decide when to start and how often to screen; 2) All women should have the opportunity to start screening mammography at age 40; 3) For women ages 45-55, we recommend annual screening mammograms; 4) For women ages 55 and over, we support both the transition from an annual to a biennial interval if this aligns more with patient's values and preferences, or continuation with annual screening; 5) All women should discuss with their providers when to stop screening mammograms. Museum Director: Abdulkadir Transcribe Date/Time: Aug 02 2023 2:24P Dictated by: RANJITH HANNA MD This examination was interpreted and the report reviewed and electronically signed by: RANJITH HANNA MD on Aug 02 2023 3:12PM EST [facility] MG Breast - right Diagnostic for implantOrdered By: Edwin Provider on 08-02-2023 [facility] No Panel Informationon 08-01 Radiology Study observation (narrative) [facility] US Breast - right limitedon 08-02-2023 IMPRESSION: NEGATIVE There is no sonographic evidence of malignancy. There is no abnormality seen in the right breast and axilla to correspond with the pain and skin retraction, however, clinical followup is recommended. Ranjith Hanna M.D. djg/:08/02/2023 15:34:46 Director Of Graduate Medical Education(s): Rut Rowan [facility] Ultrasound BI-RADS: 1 Negative Multiple national specialty organizations have released breast cancer screening guidelines for women at average risk for developing breast cancer - guidelines that are based on both evidence and opinion, yet differ on when to start and how often to screen for breast cancer. With representation from Breast Imaging, Internal Medicine, Women's Health, Family Medicine, and Medical/Surgical Oncology, the [facility] has carefully reviewed the data and reached the following consensus: 1) All women should engage in shared decision-making with their providers to decide when to start and how often to screen; 2) All women should have the opportunity to start screening mammography at age 40; 3) For women ages 45-55, we recommend annual screening mammograms; 4) For women ages 55 and over, we support both the transition from an annual to a biennial interval if this aligns more with patient's values and preferences, or continuation with annual screening; 5) All women should discuss with their providers when to stop screening mammograms. Museum Director: Abdulkadir Transcribe Date/Time: Aug 02 2023 2:55P Dictated by : RANJITH HANNA MD This examination was interpreted and the report reviewed and electronically signed by: RANJITH HANNA MD on Aug 02 2023 3:34PM [facility] DIVISION OF RADIOLOGY * * *Final Report* * * DATE OF EXAM: Aug 02 2023 3:07PM [facility] 0594 - JANE US BREAST LTD RT / PROCEDURE REASON: multiple diagnoses * * * * Physician Interpretation * * * * #[id number] - [facility] US BREAST LTD RT LIMITED ULTRASOUND OF RIGHT BREAST AND AXILLA: 08/02/2023 HISTORY: Multiple Diagnoses. RESULT: Comparison is made to exam dated: 08/02/2023 mammogram - [facility]. Color flow and real-time ultrasound of the right breast 9 o'clock, and axilla regions were performed. Alfred scale images of the real-time examination were reviewed. DIVISION OF RADIOLOGY Provider, [facility] - 08/02/2023 * * *Final Report* * * DATE OF EXAM: Aug 02 2023 3:07PM [facility] [place] 0594 - JANE US BREAST LTD RT / PROCEDURE REASON: multiple diagnoses * * * * Physician Interpretation * * * * #[id number] - [facility] US BREAST LTD RT LIMITED ULTRASOUND OF RIGHT BREAST AND AXILLA: 08/02/2023 HISTORY: Multiple Diagnoses. RESULT: Comparison is made to exam dated: 08/02/2023 mammogram - [facility]. Color flow and real-time ultrasound of the right breast 9 o'clock, and axilla regions were performed. Alfred scale images of the real-time examination were reviewed. IMPRESSION IMPRESSION: NEGATIVE There is no sonographic evidence of malignancy. There is no abnormality seen in the right breast and axilla to correspond with the pain and skin retraction, however, clinical followup is recommended. Ranjith snyderg/:08/02/2023 15:34:46 Director Of Graduate Medical Education(s): Rut Rowan, [facility] Ultrasound BI-RADS: 1 Negative Multiple national specialty organizations have released breast cancer screening guidelines for women at average risk for developing breast cancer - guidelines that are based on both evidence and opinion, yet differ on when to start and how often to screen for breast cancer. With representation from Breast Imaging, Internal Medicine, Women's Health, Family Medicine, and Medical/Surgical Oncology, the [facility] has carefully reviewed the data and reached the following consensus: 1) All women should engage in shared decision-making with their providers to decide when to start and how often to screen; 2) All women should have the opportunity to start screening mammography at age 40; 3) For women ages 45-55, we recommend annual screening mammograms; 4) For women ages 55 and over, we support both the transition from an annual to a biennial interval if this aligns more with patient's values and preferences, or continuation with annual screening; 5) All women should discuss with their providers when to stop screening mammograms. Museum Director: Abdulkadir Transcribe Date/Time: Aug 02 2023 2:55P Dictated by : RANJITH HANNA MD This examination was interpreted and the report reviewed and electronically signed by: RANJITH HANNA MD on Aug 02 2023 3:34PM [facility] US Breast - right limitedOrd ered By: Ccf Provider on 08-02-2023 [facility] Comprehensive metabolic 2000 panelon 04-27-2023 Albumin [Mass/Vol] 4.7 g/dL 3.9 - 4.9 g/dL [facility] ALP [Catalytic activity/Vol] 79 U/L 34 - 123 U/L [facility] ALT [Catalytic activity/Vol] 23 U/L 7 - 38 U/L [facility] Anion gap [Moles/Vol] 11 mmol/L 9 - 18 mmol/L [facility] AST [Catalytic activity/Vol] 35 U/L 13 - 35 U/L [facility] Bilirubin [Mass/Vol] 0.2 mg/dL 0.2 - 1 .3 mg/dL [facility] Calcium [Mass/Vol] 9.9 mg/dL 8.5 - 10. 2 mg/dL [facility] Chloride [Moles/Vol] 105 mmol/L 97 - 10 5 mmol/L [facility] CO2 [Moles/Vol] 27 mmol/L 22 - 30 mmol/L [facility] Creatinine [Mass/Vol] 0.96 mg/dL 0.58 - 0.96 mg/dL [facility] Estimated Glomerular Filtration Rate 66 mL/min/1.73m >=60 mL/min/1.73 m [facility] Glucose [Mass/Vol] 92 mg/dL 74 - 99 mg/dL [facility] Potassium [Moles/Vol] 4.0 mmol/L 3.7 - 5.1 mmol/L [facility] Protein [Mass/Vol] 7.1 g/dL 6.3 - 8.0 g/dL [facility] Sodium [Moles/Vol] 143 mmol/L 136 - 144 mmol/L [facility] Urea nitrogen [Mass/Vol] 16 mg/dL 7 - 21 mg/dL [facility] MAGNESIUM BLDon 04-27-2023 Magnesium [Mass/Vol] 2.1 mg/dL 1.7 - 2 .3 mg/dL [facility] CBC panel Auto (Bld)on 04-25 Erythrocyte distribution width (RBC) [Ratio] 13.5 % 11.5 - 15.0 % [facility] Hematocrit (Bld) [Volume fraction] 39.0 % 36.0 - 46.0 % [facility] Hemoglobin (Bld) [Mass/Vol] 12.4 g/dL 11.5 - 15.5 g/dL [facility] MCH (RBC) [Entitic mass] 27.8 pg 26.0 - 34.0 pg [facility] MCHC (RBC) [Mass/Vol] 31.8 g/dL 30.5 - 36.0 g/dL [facility] MCV (RBC) [Entitic vol] 87.4 fL 80.0 - 100.0 fL [facility] Nucleated RBC (Bld) [#/Vol] <0.01 k/uL [facility] Platelet mean volume (Bld) [Entitic vol] 9.5 fL 9.0 - 12.7 fL [facility] Platelets (Bld) [#/Vol] 231 10*3/uL 150 - 400 k/uL [facility] RBC (Bld) [#/Vol] 4.46 10*6/uL 3.90 - 5.2 0 m/uL [facility] WBC (Bld) [#/Vol] 6.14 10*3/uL 3.70 - 11.00 k/uL [facility] No Panel Informationon 10-03 [facility] Urinalysis complete panel (U )on 09-30-2022 Bilirubin Ql (U) Negative Negative [facility] Clarity (Unsp spec) Clear Clear [facility] Color (U) Light Yellow Yellow [facility] Epithelial cells LM.HPF (Urine sed) [#/Area] Few [facility] Glucose Test strip (U) [Mass/Vol] Negative Trace, Negative [facility] Hemoglobin Ql (U) Negative Negative, Trace [facility] Ketones Ql (U) Negative Trace, Negative [facility] Leukocyte esterase Test strip Ql (U) Negative Negative, 25 Davon/uL [facility] Nitrite Ql (U) Negative Negative [facility] pH (U) 7.0 [pH] 5.0 - 8.0 [facility] Protein (U) [Mass/Vol] Trace Trace , Negative [facility] RBC LM.HPF (Urine sed) [#/Area] 0-3 /HPF 0-3 /HPF [facility] Specific gravity (U) [Rel density] 1.018 1.005 - 1.030 [facility] Urobilinogen Ql (U) Negative Negative [facility] WBC LM.HPF (Urine sed) [#/Area] 0-5 /HPF 0-5 /HPF [facility] CBC panel Auto (Bld)on 09-29 Erythrocyte distribution width (RBC) [Ratio] 12.9 % 11.5 - 15.0 % [facility] Hematocrit (Bld) [Volume fraction] 42.7 % 36.0 - 46.0 % [facility] Hemoglobin (Bld) [Mass/Vol] 13.4 g/dL 11.5 - 15.5 g/dL [facility] MCH (RBC) [Entitic mass] 27.7 pg 26.0 - 34.0 pg [facility] MCHC (RBC) [Mass/Vol] 31.4 g/dL 30.5 - 36.0 g/dL [facility] MCV (RBC) [Entitic vol] 88.4 fL 80.0 - 100.0 fL [facility] Nucleated RBC (Bld) [#/Vol] <0.01 k/uL [facility] Platelet mean volume (Bld) [Entitic vol] 9.6 fL 9.0 - 12.7 fL [facility] Platelets (Bld) [#/Vol] 222 10*3/uL 150 - 400 k/uL [facility] RBC (Bld) [#/Vol] 4.83 10*6/uL 3.90 - 5.2 0 m/uL [facility] WBC (Bld) [#/Vol] 6.80 10*3/uL 3.70 - 11.00 k/uL [facility] UA DIP, URINE (POC)on 2022 BILIRUBIN UA (POCT) Negative Negative [facility] CLARITY UA (POCT) Clear [facility] COLOR UA (POCT) Light yellow [facility] GLUCOSE UA (POCT) Negative Negative mg/dL [facility] Hemoglobin Ql (U) Negative Negative [facility] KETONE UA (POCT) Negative Negative mg/dL [facility] LEUKOCYTES UA (POCT) Small Abnormal Negative [facility] NITRITE UA (POCT) Negative [facility] PH UA (POCT) 7.5 4.5 - 8.0 [facility] Protein Ql (U) Negative Negative mg/dL [facility] SPECIFIC GRAVITY UA (POCT) 1.015 1.005 - 1.030 [facility] UROBILINOGEN UA (POCT) 0.2 E.U./dL Jelly l E.U./dL [facility] JANE DIAG W QUINTON LEFTon 06-28 [facility] US BREAST LTD LTon 3 [facility] Absolute lymphocyte countOrd ered By: Dr. Hendrickson on 05-30-2022 Lymphocytes Auto (Unsp spec) [#/Vol] 1.31 10*3/uL 0.83-4.51 [facility] Basophil percentageOrdered B y: Dr. Hendrickson on 05-30-2022 Basophil percentage 10-25 SEEN /hpf 0-5 [facility] Basophils/100 WBC (Bld) 0.4 % 0-1 [facility] Chloride [Moles/Vol] 108 mmol/L 98-107 [facility] Eosinophils/100 WBC (Bld) 3.8 % 0-5 [facility] Glucose [Mass/Vol] 103 mg/dL 74-106 [facility] Comment on above: Fasting Glucose resu lt from 100 to 125 mg/dL suggests IMPAIRED HOMEOSTASIS per A.D.A. criteria. Neutrophils (Bld) [#/Vol] 3.4 10*3/uL 2.0-7.7 [facility] Neutrophils/100 WBC (Bld) 64.2 % 47-70 [facility] Potassium [Moles/Vol] 3.7 mmol/L 3.5-5.1 [facility] Sodium [Moles/Vol] 139 mmol/L 136-145 [facility] WBC (Bld) [#/Vol] 5.3 10*3/uL 4.4-11.0 [facility] Bilirubin Test strip Ql (U)O rdered By: Dr. Hendrickson on 05-30-2022 Bilirubin Ql (U) Negative Negative [facility] Blood erythrocytes count (nu mber/volume)Ordered By: Dr. Hendrickson on 05-30-2022 RBC (Bld) [#/Vol] 4.45 10*6/uL 4.2-5.[address] [facility] Blood hemoglobin measurement (mass/volume)Ordered By: Dr. Hendrickson on 05-30-2022 Hemoglobin (Bld) [Mass/Vol] 12.4 g/dL 12.0-15.0 [facility] Blood lymphocytes/100 leukoc ytesOrdered By: Dr. Hendrickson on 05-30-2022 Lymphocytes/100 WBC (Bld) 24.8 % 19-41 [facility] Blood monocytes/100 leukocyt esOrdered By: Dr. Hendrickson on 05-30-2022 Monocytes/100 WBC (Bld) 6.4 % 0-10 [facility] Blood platelet mean volumeOr dered By: Dr. Hendrickson on 05-30-2022 Platelet mean volume (Bld) [Entitic vol] 9.0 fL 6.2-12.0 [facility] Determination of erythrocyte mean corpuscular volume (MCV)Ordered By: Dr. Hendrickson on 05-30-2022 MCV (RBC) [Entitic vol] 88.1 fL 81-99 [facility] Hematocrit Auto (Bld) [Volum e fraction]Ordered By: Dr. Hendrickson on 05-30-2022 Hematocrit (Bld) [Volume fraction] 39.2 % 37-47 [facility] Ketones Test strip Ql (U)Ord ered By: Dr. Hendrickson on 05-30-2022 Ketones Ql (U) Negative Negative [facility] Laboratory - Chemistry and C hemistry - challengeOrdered By: Dr. Hendrickson on 05-30-2022 CO2 [Moles/Vol] 25.0 mmol/L 21.0-32.0 [facility] Urea nitrogen/Creatinine [Mass ratio] 13.2 mg/mg 10-20 [facility] Laboratory - Hematology and Cell countsOrdered By: Dr. Hendrickson on 05-30-2022 Erythrocyte distribution width (RBC) [Entitic vol] 41.1 fL 35.1-43.9 [facility] Erythrocyte distribution width (RBC) [Ratio] 12.7 % 11.6-14.6 [facility] Immature granulocytes/100 WBC (Bld) 0.400 % 0.0-0.9 [facility] Comment on above: IG% - Immature Granu locytes (promyelocytes, myelocytes and metamyelocytes) > 1% indicates that a LEFT SHIFT is Present. MCH (RBC) [Entitic mass] 27.9 pg 27.0-32.0 [facility] Nucleated RBC/100 WBC (Bld) [Ratio] 0 % 0-5 [facility] MCHC Auto (RBC) [Mass/Vol]Or dered By: Dr. Hendrickson on 05-30-2022 MCHC (RBC) [Mass/Vol] 31.6 g/dL 32-36 [facility] Mucus LM Ql (Urine sed)Order ed By: Dr. Hendrickson on 05-30-2022 Mucus Ql (Urine sed) 0 SEEN /hpf [facility] Nitrite Test strip Ql (U)Ord ered By: Dr. Hendrickson on 05-30-2022 Nitrite Ql (U) Negative Negative [facility] No Panel InformationOrdered By: Dr. Hendrickson on 05-30-2022 D-Dimer Quantitative (PE/DVT) < 0.27 FEU/ug/m 0.27-0.49 [facility] Comment on above: NORMAL D-Dimer level (<0.50) indicates no DVT or PE. Estimated Creatinine Clearance Calc 54.45 ml/min [facility] Estimated GFR (MDRD) Amer 73 mL/min >60 [facility] Comment on above: GFR Calc Estimated GFR (MDRD) Non-Af Amer 60 mL/min >60 [facility] Comment on above: Non- GFR Calc Troponin I High Sensitivity 9 pg/mL 3.0-54.0 [facility] Comment on above: Please Note: New Christina t Units and Gender Specific Reference Ranges. For more information see Policy Stat Procedure [place] High Sensitivity Troponin (TNIH) and attachments. Platelets bldOrdered By: Dr. Hendrickson on 05-30-2022 Platelets (Bld) [#/Vol] 172 10*3/uL 150-450 [facility] Protein Test strip Ql (U)Ord ered By: Dr. Hendrickson on 05-30-2022 Protein Ql (U) Negative Negative [facility] Serum or plasma calcium anita urement (mass/volume)Ordered By: Dr. Hendrickson on 05-30-2022 Calcium [Mass/Vol] 9.4 mg/dL 8.5-10.1 [facility] Serum or plasma creatinine m easurement (mass/volume)Ordered By: Dr. Hendrickson on 05-30-2022 Creatinine [Mass/Vol] 0.99 mg/dL 0.55-1.02 [facility] Comment on above: The validity of the calculated GFR & GFRAA in patients over 70 years has not been determined. Clinical correlation is essential. Serum or plasma urea nitroge n measurement (mass/volume)Ordered By: Dr. Hendrickson on 05-30-2022 Urea nitrogen [Mass/Vol] 13 mg/dL 7-18 [facility] Squamous epithelial cells de tection in urine sediment by light microscopyOrdered By: Dr. Hendrickson on 05-30-2022 Epithelial cells.squamous LM Ql (Urine sed) 0-5 SEEN /hpf 5-10 [facility] Thin prep Papanicolaou smear with manual screeningOrdered By: Dr. Hendrickson on 05-30-2022 Thin prep Papanicolaou smear with manual screening 6 5-15 [facility] Urine blood detectionOrdered By: Dr. Hendrickson on 05-30-2022 RBC Ql (U) Negative Negative [facility] RBC Ql (U) 0 SEEN /hpf 0-5 [facility] Urine clarityOrdered By: Dr. Hendrickson on 05-30-2022 Clarity (U) Sl. Cloudy Clear [facility] Urine color determinationOrd ered By: Dr. Hendrickson on 05-30-2022 Color (U) Yellow Yellow [facility] Urine glucose detectionOrder ed By: Dr. Hendrickson on 05-30-2022 Glucose Ql (U) Normal mg/dl Normal [facility] Urine leukocyte esterase det ection by dipstickOrdered By: Dr. Hendrickson on 05-30-2022 Leukocyte esterase Test strip Ql (U) 100 /ul Negative [facility] Urine pHOrdered By: Dr. Alia espino on 05-30-2022 pH (U) 7.0 [pH] 5.0 - 8.0 [facility] Urine sediment bacteria coun t by microscopy (number/high power field)Ordered By: Dr. Hendrickson on 05-30-2022 Bacteria LM.HPF (Urine sed) [#/Area] 0 /[HPF] None Seen [facility] Urine specific gravity measu rementOrdered By: Dr. Hendrickson on 05-30-2022 Specific gravity (U) [Rel density] 1.010 1.002-1.030 [facility] Urobilinogen Auto test strip Ql (U)Ordered By: Dr. Hendrickson on 05-30-2022 Urobilinogen Ql (U) Normal mg/dl Normal [facility] JANE DIAG W QUINTON LTon 022 [facility] US BREAST LTD LTon 2 [facility] CNTHERAPYon 10-07-2021 CNTHERAPY OT/PT/Speech Visit ([facility]) -------- SHAKIRA FRANKLIN ([id number]) 1960 F Date Time Provider Department 10/07/21 1:00 PM KINDRA GANDHI [facility] Date Time Provider Department Center 10/07/2021 1:00 PM [id number] [facility] Reason for Visit: Speech Instrumental Swallow Eval [3660] Speech Discharge [8368] Primary Visit Diagnosis:Choking on, sequela [T17.308S] Allergies As of Date: 10/07/2021 Noted Allergy Reaction ARIMIDEX (ANASTROZOLE) 02/18/2015 2 - Rash AROMASIN (EXEMESTANE) 07/10/2013 6 - Diarrhea TAMOXIFEN 02/18/2015 2 - Rash LETROZOLE 03/06/2017 2 - Rash Date Reviewed: 09/22/2021 Reviewed by: Kena Kitchen PA-C - Fully Assessed Prescriptions as of 10/07/2021 - omeprazole (PRILOSEC) 20 mg capsule Take 1 capsule by mouth daily before breakfast. - albuterol HFA (PROVENTIL HFA, VENTOLIN HFA) 90 mcg/actuation inhaler Inhale 2 Puffs as instructed every 6 hours as needed for wheezing/shortness of breath. - varenicline (CHANTIX STARTING MONTH BOX) 0.5 mg (11)- 1 mg (42) tablet Take 0.5 mg by mouth once daily on Days 1 through 3, THEN 0.5 mg twice daily on Days 4 through 7, THEN 1 mg twice daily on Day 8 and thereafter - varenicline (CHANTIX CONTINUING MONTH BOX) 1 mg tablet Take 1 tablet by mouth twice daily. - multivit-min/vit C/herb no.124 (AIRBORNE GUMMY ORAL) Take by mouth. - fluocinonide (LIDEX) 0.05 % cream Apply to affected area twice daily as needed (for areas of rash, limit to not more than 2 weeks use at a time.). -------- Letter Text [facility] XR MOD BARIUM SWALLOW W SPEE Diandra 10-07-2021 XR MOD BARIUM SWALLOW W SPEECH * * *Final Report* * * DATE OF EXAM: Oct 07 2021 1:40PM MDX 5377 - XR MOD BARIUM SWALLOW W SPEECH / PROCEDURE REASON: T17.308S-Choking, sequela * * * * Physician Interpretation * * * * MODIFIED ESOPHAGRAM WITH VIDEO BY SPEECH PATHOLOGY Fluoroscopy was provided for an oropharyngeal phase swallowing examination performed by Speech Pathology. Please refer to the Speech Pathologist's report, available in EPIC. Fluoroscopic Radiation Summary: Plane A, Air Kerma: 22.1 mGy Dose Area Product (DAP): Fluoro time: 1:54 min:sec RESULT: See speech pathology notes. IMPRESSION: See speech pathology notes. Museum Director: JOHN Transcribe Date/Time: Oct 07 2021 5:02P Dictated by : JESSICA BROWNE DO This examination was interpreted and the report reviewed and electronically signed by: JESSICA BROWNE DO on Oct 07 2021 5:03PM EST [id number] [facility] XR CHEST 2V FRONTAL/LATon [facility] XR Chest PA and Lateralon IMPRESSION: No acute radiographic abnormality. Museum Director: JOHN Transcribe Date/Time: Aug 25 2021 2:56P Dictated by : RENETTA MAYBERRY MD This examination was interpreted and the report reviewed and electronically signed by: RENETTA MAYBERRY MD on Aug 25 2021 2:56PM EST [id number]_U SE_DIVISION OF RADIOLOGY * * *Final Report* * * DATE OF EXAM: Aug 25 2021 2:45PM WOX 5291 - XR CHEST 2V FRONTAL/LAT / PROCEDURE REASON: multiple diagnoses * * * * Physician Interpretation * * * * EXAMINATION: CHEST RADIOGRAPH (2 VIEW FRONTAL & LATERAL) CLINICAL HISTORY: Pneumonia of left lower lobe due to infectious organism Wheezing MQ: XC2_6 EXAM DATE/TIME: 08/25/2021 2:45 PM COMPARISON: Chest x-ray on 05/31/2021 RESULT: Lines, tubes, and devices: None. Lungs and pleura: No consolidation. No lung mass. No pleural effusion. No pneumothorax. Cardiomediastinal silhouette: Normal cardiomediastinal silhouette. Bones and soft tissues: There are degenerative changes in the spine. [id number] SE_DIVISION OF RADIOLOGY Provider, [facility] - 08/25/2021 * * *Final Report* * * DATE OF EXAM: Aug 25 2021 2:45PM WOX 5291 - XR CHEST 2V FRONTAL/LAT / PROCEDURE REASON: multiple diagnoses * * * * Physician Interpretation * * * * EXAMINATION: CHEST RADIOGRAPH (2 VIEW FRONTAL & LATERAL) CLINICAL HISTORY: Pneumonia of left lower lobe due to infectious organism Wheezing MQ: XC2_6 EXAM DATE/TIME: 08/25/2021 2:45 PM COMPARISON: Chest x-ray on 05/31/2021 RESULT: Lines, tubes, and devices: None. Lungs and pleura: No consolidation. No lung mass. No pleural effusion. No pneumothorax. Cardiomediastinal silhouette: Normal cardiomediastinal silhouette. Bones and soft tissues: There are degenerative changes in the spine. IMPRESSION IMPRESSION: No acute radiographic abnormality. Museum Director: PSCB Transcribe Date/Time: Aug 25 2021 2:56P Dictated by : RENETTA MAYBERRY MD This examination was interpreted and the report reviewed and electronically signed by: RENETTA MAYBERRY MD on Aug 25 2021 2:56PM EST [facility] Radiology Study observation (narrative) [facility] XR Chest PA and LateralOrder ed By: [facility] Provider on 08-25-2021 [facility] Absolute lymphocyte counton 07-08-2021 Lymphocytes Auto (Unsp spec) [#/Vol] 1.88 10*3/uL 0.83-4.51 [facility] Work Phone: Basophil percentageon 2021 Basophils/100 WBC (Bld) 0.3 % 0-1 [facility] Work Phone: Bilirubin [Mass/Vol] 0.30 mg/dL 0.20-1.00 [facility] Work Phone: Comment on above: For patients on eltr ombopag therapy, use of Dimension [place] TBIL is not recommended. Chloride [Moles/Vol] 108 mmol/L 98-107 [facility] Work Phone: Eosinophils/100 WBC (Bld) 3.5 % 0-5 [facility] Work Phone: Glucose [Mass/Vol] 96 mg/dL 74-106 [facility] Work Phone: Neutrophils (Bld) [#/Vol] 4.1 10*3/uL 2.0-7.7 [facility] Work Phone: Neutrophils/100 WBC (Bld) 60.3 % 47-70 [facility] Work Phone: Potassium [Moles/Vol] 3.7 mmol/L 3.5-5.1 [facility] Work Phone: Protein [Mass/Vol] 7.2 g/dL 6.4-8.2 [facility] Work Phone: Sodium [Moles/Vol] 142 mmol/L 136-145 [facility] Work Phone: WBC (Bld) [#/Vol] 6.8 10*3/uL 4.4-11.0 [facility] Work Phone: Bilirubin Test strip Ql (U)o n 07-08-2021 Bilirubin Ql (U) Negative Negative [facility] Work Phone: Blood erythrocytes count (nu mber/volume)on 07-08-2021 RBC (Bld) [#/Vol] 4.42 10*6/uL 4.2-5.[address] [facility] Work Phone: Blood hemoglobin measurement (mass/volume)on 07-08-2021 Hemoglobin (Bld) [Mass/Vol] 12.5 g/dL 12.0-15.0 [facility] Work Phone: Blood lymphocytes/100 leukoc yteson 07-08-2021 Lymphocytes/100 WBC (Bld) 27.8 % 19-41 [facility] Work Phone: Blood monocytes/100 leukocyt eson 07-08-2021 Monocytes/100 WBC (Bld) 7.8 % 0-10 [facility] Work Phone: Blood platelet mean volumeon 07-08-2021 Platelet mean volume (Bld) [Entitic vol] 8.9 fL 6.2-12.0 [facility] Work Phone: Determination of erythrocyte mean corpuscular volume (MCV)on 07-08-2021 MCV (RBC) [Entitic vol] 88.5 fL 81-99 [facility] Work Phone: [phone] Hematocrit Auto (Bld) [Volum e fraction]on 07-08-2021 Hematocrit (Bld) [Volume fraction] 39.1 % 37-47 [facility] Work Phone: [phone] Ketones Test strip Ql (U)on 07-08-2021 Ketones Ql (U) Negative Negative [facility] Work Phone: [phone] Laboratory - Chemistry and C hemistry - challengeon 07-08-2021 ALP [Catalytic activity/Vol] 77 U/L 45-117 [facility] Work Phone: [phone] ALT [Catalytic activity/Vol] 32 U/L 13-56 [facility] Work Phone: [phone] CO2 [Moles/Vol] 28.0 mmol/L 21.0-32.0 [facility] Work Phone: [phone] Globulin (S) [Mass/Vol] 3.3 g/dL 2.2-4.2 [facility] Work Phone: [phone] Lipase [Catalytic activity/Vol] 171 U/L 73-393 [facility] Work Phone: [phone] Urea nitrogen/Creatinine [Mass ratio] 16.6 mg/mg 10-20 [facility] Work Phone: [phone] Laboratory - Hematology and Cell countson 07-08-2021 Erythrocyte distribution width (RBC) [Entitic vol] 43.1 fL 35.1-43.9 [facility] Work Phone: [phone] Erythrocyte distribution width (RBC) [Ratio] 13.2 % 11.6-14.6 [facility] Work Phone: [phone] Immature granulocytes/100 WBC (Bld) 0.300 % 0.0-0.9 [facility] Work Phone: [phone] Comment on above: IG% - Immature Granu locytes (promyelocytes, myelocytes and metamyelocytes) > 1% indicates that a LEFT SHIFT is Present. MCH (RBC) [Entitic mass] 28.3 pg 27.0-32.0 [facility] Work Phone: Nucleated RBC/100 WBC (Bld) [Ratio] 0 % 0-5 [facility] Work Phone: MCHC Auto (RBC) [Mass/Vol]on 07-08-2021 MCHC (RBC) [Mass/Vol] 32.0 g/dL 32-36 [facility] Work Phone: Mucus LM Ql (Urine sed)on Mucus Ql (Urine sed) 0 SEEN /hpf [facility] Work Phone: Nitrite Test strip Ql (U)on 07-08-2021 Nitrite Ql (U) Negative Negative [facility] Work Phone: No Panel Informationon 07-08 Estimated Creatinine Clearance Calc 64.64 ml/min [facility] Work Phone: Estimated GFR (MDRD) Amer 88 mL/min >60 [facility] Work Phone: Comment on above: GFR Calc Estimated GFR (MDRD) Non-Af Amer 72 mL/min >60 [facility] Work Phone: Comment on above: Non- GFR Calc Platelets bldon 07-08-2021 Platelets (Bld) [#/Vol] 230 10*3/uL 150-450 [facility] Work Phone: Protein Test strip Ql (U)on 07-08-2021 Protein Ql (U) Negative Negative [facility] Work Phone: [phone] Serum or plasma albumin anita urement (mass/volume)on 07-08-2021 Albumin [Mass/Vol] 3.9 g/dL 3.2-5.0 [facility] Work Phone: [phone] Serum or plasma albumin/glob ulin mass ratioon 07-08-2021 Albumin/Globulin [Mass ratio] 1.2 {ratio} 0.9-2.4 [facility] Work Phone: [phone] Serum or plasma calcium anita urement (mass/volume)on 07-08-2021 Calcium [Mass/Vol] 9.2 mg/dL 8.5-10.1 [facility] Work Phone: Serum or plasma creatinine m easurement (mass/volume)on 07-08-2021 Creatinine [Mass/Vol] 0.84 mg/dL 0.55-1.02 [facility] Work Phone: Comment on above: The validity of the calculated GFR & GFRAA in patients over 70 years has not been determined. Clinical correlation is essential. Serum or plasma urea nitroge n measurement (mass/volume)on 07-08-2021 Urea nitrogen [Mass/Vol] 14 mg/dL 7-18 [facility] Work Phone: Squamous epithelial cells de tection in urine sediment by light microscopyon 07-08-2021 Epithelial cells.squamous LM Ql (Urine sed) 0-5 SEEN /hpf [facility] Work Phone: Thin prep Papanicolaou smear with manual screeningon 07-08-2021 Thin prep Papanicolaou smear with manual screening 44 U/L 15-37 [facility] Work Phone: Thin prep Papanicolaou smear with manual screening 6 5-15 [facility] Work Phone: Urine blood detectionon - RBC Ql (U) Negative Negative [facility] Work Phone: RBC Ql (U) 0 SEEN /hpf [facility] Work Phone: Urine clarityon 07-08-2021 Clarity (U) Clear Clear [facility] Work Phone: Urine color determinationon 07-08-2021 Color (U) Yellow Yellow [facility] Work Phone: Urine glucose detectionon Glucose Ql (U) Normal mg/dl Normal [facility] Work Phone: Urine leukocyte esterase det ection by dipstickon 07-08-2021 Leukocyte esterase Test strip Ql (U) Negative Negative [facility] Work Phone: Urine pHon 07-08-2021 pH (U) 6.5 [pH] [facility] Work Phone: [phone] Urine sediment bacteria coun t by microscopy (number/high power field)on 07-08-2021 Bacteria LM.HPF (Urine sed) [#/Area] RARE /hpf None Seen [facility] Work Phone: [phone] Urine specific gravity measu rementon 07-08-2021 Specific gravity (U) [Rel density] 1.010 [facility] Work Phone: [phone] Urobilinogen Auto test strip Ql (U)on 07-08-2021 Urobilinogen Ql (U) Normal mg/dl Normal [facility] Work Phone: [phone] XR CHEST 2V FRONTAL/LATon [facility] XR Chest PA and Lateralon IMPRESSION: 1. No acute cardiopulmonary abnormalities. 2. Relative hyperaeration, consistent with COPD, similar appearance to the prior study. Museum Director: [facility] Transcribe Date/Time: May 31 2021 3:41P Dictated by : BRY HOLMAN MD This examination was interpreted and the report reviewed and electronically signed by: BRY HOLMAN MD on May 31 2021 3:48PM EST [id number]_U _DIVISION OF RADIOLOGY * * *Final Report* * * DATE OF EXAM: May 31 2021 3:32PM WOX [id number] - XR CHEST 2V FRONTAL/LAT / PROCEDURE REASON: Smoking * * * * Physician Interpretation * * * * EXAMINATION: CHEST RADIOGRAPH (2 VIEW FRONTAL & LATERAL), 05/31/2021 CLINICAL HISTORY: Smoking . Previous stated history of right breast malignancy. MQ: XC2_6 EXAM DATE/TIME: 05/31/2021 3:32 PM COMPARISON: PA and lateral chest 05/22/2020. CT chest 04/20/2016. RESULT: Lines, tubes, and devices: None. Lungs and pleura: Relative hyperaeration, similar appearance to the prior study. The lungs are clear. No pleural effusion. No pneumothorax. Cardiomediastinal silhouette: Normal cardiomediastinal silhouette. Bones and soft tissues: Bilateral breast implants. Minimal degenerative changes in the thoracic spine. [id number] SE_DIVISION OF RADIOLOGY Provider, [facility] - 05/31/2021 * * *Final Report* * * DATE OF EXAM: May 31 2021 3:32PM WOX 5291 - XR CHEST 2V FRONTAL/LAT / PROCEDURE REASON: Smoking * * * * Physician Interpretation * * * * EXAMINATION: CHEST RADIOGRAPH (2 VIEW FRONTAL & LATERAL), 05/31/2021 CLINICAL HISTORY: Smoking . Previous stated history of right breast malignancy. MQ: XC2_6 EXAM DATE/TIME: 05/31/2021 3:32 PM COMPARISON: PA and lateral chest 05/22/2020. CT chest 04/20/2016. RESULT: Lines, tubes, and devices: None. Lungs and pleura: Relative hyperaeration, similar appearance to the prior study. The lungs are clear. No pleural effusion. No pneumothorax. Cardiomediastinal silhouette: Normal cardiomediastinal silhouette. Bones and soft tissues: Bilateral breast implants. Minimal degenerative changes in the thoracic spine. IMPRESSION IMPRESSION: 1. No acute cardiopulmonary abnormalities. 2. Relative hyperaeration, consistent with COPD, similar appearance to the prior study. Museum Director: [facility] Transcribe Date/Time: May 31 2021 3:41P Dictated by : BRY HOLMAN MD This examination was interpreted and the report reviewed and electronically signed by: BRY HOLMAN MD on May 31 2021 3:48PM EST [facility] Radiology Study observation (narrative) [facility] XR Chest PA and LateralOrder ed By: [facility]cf Provider on 05-31-2021 [facility] XR LUMBAR SPINE 2-3 VIEWS (S TANDARD)on 04-07-2021 XR LUMBAR SPINE 2-3 VIEWS (STANDARD) EXAMINATION: XR LUMBAR SPINE 2-3 VIEWS (STANDARD) 04/07/2021 11:42 am HISTORY: ORDERING SYSTEM PROVIDED HISTORY: injury, TECHNOLOGIST PROVIDED HISTORY: Injury/Trauma Reason for exam: pain Cancer History: u Surgery, RadiationHistory: u Encounter Type: Initial Mechanism of injury: fell x 2 weeks ago ORDERING SYSTEM PROVIDED DIAGNOSIS CODES: T14.90XA Injury COMPARISON: CT lumbar spine 06/09/2020 FINDINGS: BONES: Normal height and alignment of the vertebral bodies; no fracture, spondylolisthesis, or bone lesion. Mild degenerative facet arthropathy L3-4 through L5-S1. DISC SPACES: Slight narrowing L5-S1. PARASPINOUS:Moderate atherosclerotic disease of distal aorta. OTHER: Negative. IMPRESSION: 1. No acute bone abnormality. 2. Mild degenerative changes of the lower lumbar spine. Workstation ID: [id number] Dictated by: MALINI BURDEN on MonApr 09, 2021 7:28:15 AM EST Transcribed by: MALINI BURDEN on MonApr 09, 2021 7:28:15 AM EST Finalized by: MALINI BURDEN on MonApr 09, 2021 7:28:15 AM EST Normal [facility] Comment on above: Order Comment: WH Injury/Trauma or Illness?:Injury/Trauma How long have you had these symptoms (acute/chronic)?:Acute Reason for exam?:pain History of cancer?:u Surgeries, chemotherapy, or radiation?:u Type of Exam?:Initial Mechanism of injury?:fell x 2 weeks ago MAMMO DIAGNOSTIC WITH [facility] 12-23-2020 MAMMO DIAGNOSTIC WITH QUINTON LEFT EXAM: MAMMO DIAGNOSTIC LEFT WITH TOMOSYNTHESIS, 12/23/2020 14:01 PM CLINICAL INDICATIONS: 60-year-old patient status post right mastectomy in 2002 scanning for further evaluation of possible asymmetry within the left breast. COMPARISON: December 11, 2020, November 14, 2019, October 23, 2018. TECHNIQUE: Digital ML and spot CC views of the left breast were obtained. 3-D digital tomosynthesis ML and spot CC views were also obtained. Computer aided detection was utilized. FINDINGS: The breast is heterogeneously dense, which may obscure small masses. Benign appearing calcifications are noted. . Circumscribed ovoid mass within the inner left breast at posterior depth appears stable since October 2018. There are no new suspicious masses, calcifications, or architectural distortions. IMPRESSION: Benign findings. Negative for malignancy. Continued screening recommended. BI-RADS: 2: Benign Recommendation: Routine mammography. Recommendation Laterality: Left I personally viewed and interpreted these images and I have reviewed and approved this report. Normal [facility] MR LUMBAR SPINE WITHOUT CONT [facility] 06-26-2020 MR LUMBAR SPINE WITHOUT CONTRAST EXAMINATION: MR LUMBAR SPINE WITHOUT CONTRAST HISTORY: Sprain of lumbar region Dx: S33.5XXA (Sprain of lumbar region) Injury/Trauma or Illness?:Injury/Trauma How long have you had these symptoms (acute/chronic)?:Acute TECHNIQUE: Sagittal T1, T2, STIR, axial T1 and T2-weighted images without contrast performed through the lumbar spine. COMPARISON: None. FINDINGS: The vertebral bodies and disc spaces are normal in height and alignment. The marrow signal is normal. Conus lies at T12 and is normal in appearance. The neural foramina are patent. L5-S1: Small annular rent, small disc protrusion more prominent to the right without stenosis. L4-5: Disc bulge slightly more prominent to the left and ligamentum flavum hypertrophy and mild facet arthropathy resulting in mild effacement of the thecal sac. L3-4: Facet hypertrophy without stenosis. L2-3: Normal. L1-2: Normal. T12-L1: Extruded ascending disc fragment with minimal effacement thecal sac. This is best seen axial image 1 and sagittal image 7. The vertebral bodies and disc spaces are otherwise normal in appearance. Paraspinal soft tissues are normal. IMPRESSION: 1. Small extruded ascending disc fragment T12-L1 with minimal effacement thecal sac. 2. Disc bulge with ligamentum flavum hypertrophy and mild effacement thecal sac L4-5. 3. Small right paracentral disc protrusion L5-S1 without stenosis. [facility] Workstation ID: [id number] Dictated by: Shani VIZCARRA on MonJune 29, 2020 7:39:14 AM EDT Transcribed by: JUDY SUNG on MonJune 29, 2020 7:42:38 AM EDT Finalized by: Shani VIZCARRA on MonJune 29, 2020 10:04:01 AM EDT Normal [facility] Comment on above: Order Comment: Injur y/Trauma or Illness?:Injury/Trauma How long have you had these symptoms (acute/chronic)?:Acute Reason for exam?:lbp with leg pain; lifting injury Type of Exam?:Initial Mechanism of injury?:none [facility] CONTRAST EXAMINATION: CT LUMBAR SPINE WITHOUT CONTRAST 06/09/2020 CLINICAL HISTORY: Patient is a 59-year-old female with a past medical history of breast cancer who presents today for lower back pain. Patient states she was at work shortly prior to arrival when she was picking up a heavy box and twisted and developed mid lower back. TECHNIQUE: Axial CT scans of the lumbar spine were obtained without contrast administration. Sagittal and coronal reconstruction images were obtained. Dose reduction techniques were achieved by using: automated exposure control and/or adjustment of mA and/or kV according to patient size and/or use of iterative reconstruction technique. COMPARISON: None. FINDINGS: No acute fracture or posttraumatic malalignment. At L4-5, mild posterior disc bulge and iynd-hb-[id number] bilateral facet hypertrophy. At L5-S1, mild posterior disc bulge and slms-fq-nfsiopyl left facet hypertrophy. 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 SI joints are intact. The visualized lower lungs show no acute process. The visualized retroperitoneum shows no adenopathy or hemorrhage. The calyceal system of the inferior pole of the left kidney is filled with soft tissue density. IMPRESSION: No acute fracture or posttraumatic malalignment. No central spinal stenosis or neural foraminal stenosis. 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 The calyceal system of the inferior pole of the left kidney is filled with soft tissue density. Dedicated CT urogram is recommended to further evaluate. [facility] Workstation ID: [id number] Dictated by: CRYSTAL VILLALPANDO on MonJun 09, 2020 9:00:23 PM EDT Transcribed by: SANFORD GARRETT on MonJun 09, 2020 9:04:17 PM EDT Finalized by: CRYSTAL VILLALPANDO on MonJun 09, 2020 11:52:58 PM EDT [facility] Comment on above: Order Comment: Injur y/Trauma or Illness?:Injury/Trauma How long have you had these symptoms (acute/chronic)?:Acute Reason for exam?:pain at waist line due to lifting/turning injury at work hx right breast ca -mastectomy Type of Exam?:Initial , last chemo Mechanism of injury?:Pt was at work, picking up a heavy box, and twisted wrong and now with lower back pain. Denies history of back issues. Pt tearful, states pain was immediate. Able to move toes without difficulty. Denies radiation of pain XR Chest PA and Lateralon IMPRESSION: Findings compatible with underlying COPD. Museum Director: JOHN Transcribe Date/Time: May 22 2020 11:12A Dictated by : MASON SUNSHINE MD This examination was interpreted and the report reviewed and electronically signed by: MASON SUNSHINE MD on May 22 2020 11:13AM [facility] DIVISION OF RADIOLOGY * * *Final Report* * * DATE OF EXAM: May 22 2020 11:04AM WOX [id number] - XR CHEST 2V FRONTAL/LAT / PROCEDURE REASON: multiple diagnoses * * * * Physician Interpretation * * * * EXAMINATION: CHEST RADIOGRAPH (2 VIEW FRONTAL & LATERAL) CLINICAL HISTORY: Routine medical exam Palpitations MQ: XC2_6 EXAM DATE/TIME: 05/22/2020 11:04 AM COMPARISON: Correlation made to CT chest dated April 29, 2017. Comparison made to chest x-ray dated July 06, 2012. RESULT: Lines, tubes, and devices: None. Lungs and pleura: Stable biapical pleural thickening. Hyperinflated lungs compatible with underlying COPD. No consolidation. No lung mass. No pleural effusion. No pneumothorax. Cardiomediastinal silhouette: Heart normal in size. Aorta tortuous. Bones and soft tissues: Degenerative changes in the spine. Mild pectus excavatum deformity. DIVISION OF RADIOLOGY [facility] * * *Final Report* * * DATE OF EXAM: May 22 2020 11:04AM WOX [id number] - XR CHEST 2V FRONTAL/LAT / PROCEDURE REASON: multiple diagnoses * * * * Physician Interpretation * * * * EXAMINATION: CHEST RADIOGRAPH (2 VIEW FRONTAL & LATERAL) CLINICAL HISTORY: Routine medical exam Palpitations MQ: XC2_6 EXAM DATE/TIME: 05/22/2020 11:04 AM COMPARISON: Correlation made to CT chest dated April 29, 2017. Comparison made to chest x-ray dated July 06, 2012. RESULT: Lines, tubes, and devices: None. Lungs and pleura: Stable biapical pleural thickening. Hyperinflated lungs compatible with underlying COPD. No consolidation. No lung mass. No pleural effusion. No pneumothorax. Cardiomediastinal silhouette: Heart normal in size. Aorta tortuous. Bones and soft tissues: Degenerative changes in the spine. Mild pectus excavatum deformity. IMPRESSION IMPRESSION: Findings compatible with underlying COPD. Museum Director: [facility]SC[facility] Transcribe Date/Time: May 22 2020 11:12A Dictated by : MASON SUNSHINE MD This examination was interpreted and the report reviewed and electronically signed by: MASON SUNSHINE MD on May 22 2020 11:13AM EST [facility] Radiology Study observation (narrative) Rodney francisco [facility] XR Chest PA and LateralOrder ed By: Ccf Provider on 05-22-2020 [facility] Vital Signs Date Time Vital Sign Value Performing Clinician Faci lity 07-10-2024 15:26-0400 Body temperature 97.5 [degF] Liz Salomon MD Work Phone: [facility] 07-10-2024 15:26-0400 Diastolic blood pressure 83 mm[Hg] Liz Salomon MD Work Phone: [facility] 07-10-2024 15:26-0400 Heart rate 69 /min Liz Salomon MD Work Phone: [facility] 07-10-2024 15:26-0400 Respiratory rate 16 /min Liz Salomon MD Work Phone: [facility] 07-10-2024 15:26-0400 SaO2% (BldA) [Mass fraction] 95 % Liz Salomon MD Work Phone: [facility] 07-10-2024 15:26-0400 Systolic blood pressure 130 mm[Hg] Liz Salomon MD Work Phone: [facility] 06-26-2024 08:22-0400 Body mass index (BMI) [Ratio] 26.07 kg/m2 Michael Mackey DO Work Phone: [facility] 06-26-2024 08:22-0400 Body temperature 97.11 [degF] Michael Mackey DO Work Phone: [facility] 06-26-2024 08:22-0400 Body weight 73.26 kg Michael Mackey DO Work Phone: [facility] 06-26-2024 08:22-0400 Diastolic blood pressure 92 mm[Hg] Michael Valentieni DO Work Phone: [facility] 06-26-2024 08:22-0400 Heart rate 55 /min Michael Valentinei DO Work Phone: [facility] 06-26-2024 08:22-0400 SaO2% (BldA) [Mass fraction] 96 % Michael Mackey DO Work Phone: [facility] 06-26-2024 08:22-0400 Systolic blood pressure 162 mm[Hg] Michael Mackey DO Work Phone: [facility] 06-25-2024 15:16-0400 Diastolic blood pressure 94 mm[Hg] Liz Salomon MD Work Phone: [facility] 06-25-2024 15:16-0400 Systolic blood pressure 152 mm[Hg] Liz Salomon MD Work Phone: [facility] 06-25-2024 15:10-0400 Body temperature 98.01 [degF] Liz Salomon MD Work Phone: [facility] 06-25-2024 15:10-0400 Heart rate 67 /min Liz Salomon MD Work Phone: [facility] 06-25-2024 15:10-0400 SaO2% (BldA) [Mass fraction] 94 % Liz Salomon MD Work Phone: [facility] 06-18-2024 15:31-0400 Body temperature 97.5 [degF] Liz Salomon MD Work Phone: [facility] 06-18-2024 15:31-0400 Diastolic blood pressure 98 mm[Hg] Liz Salomon MD Work Phone: [facility] 06-18-2024 15:31-0400 Heart rate 65 /min Liz Salomon MD Work Phone: [facility] 06-18-2024 15:31-0400 SaO2% (BldA) [Mass fraction] 96 % Liz Salomon MD Work Phone: [facility] 06-18-2024 15:31-0400 Systolic blood pressure 154 mm[Hg] Liz Salomon MD Work Phone: [facility] 06-11-2024 15:19-0400 Body temperature 98.01 [degF] Liz Salomon MD Work Phone: [facility] 06-11-2024 15:19-0400 Diastolic blood pressure 87 mm[Hg] Liz Salomon MD Work Phone: [facility] 06-11-2024 15:19-0400 Heart rate 68 /min Liz Salomon MD Work Phone: [facility] 06-11-2024 15:19-0400 SaO2% (BldA) [Mass fraction] 97 % Liz Salomon MD Work Phone: [facility] 06-11-2024 15:19-0400 Systolic blood pressure 136 mm[Hg] Liz Salomon MD Work Phone: [facility] 06-11-2024 12:58-0400 Body mass index (BMI) [Ratio] 25.73 kg/m2 Cheryl FuReddy ACID TREATER.PHARMACEUTICAL OFFICER Work Phone: [facility] 06-11-2024 12:58-0400 Body weight 72.3 kg Cheryl Fisher ACID TREATER.PHARMACEUTICAL OFFICER Work Phone: [facility] 06-11-2024 12:58-0400 Diastolic blood pressure 74 mm[Hg] Cheryl FuReddy ACID TREATER.PHARMACEUTICAL OFFICER Work Phone: [facility] 06-11-2024 12:58-0400 Heart rate 74 /min Cheryl FuReddy ACID TREATER.PHARMACEUTICAL OFFICER Work Phone: [facility] 06-11-2024 12:58-0400 Respiratory rate 14 /min Cheryl Fisher ACID TREATER.PHARMACEUTICAL OFFICER Work Phone: [facility] 06-11-2024 12:58-0400 SaO2% (BldA) [Mass fraction] 97 % Cheryl Fisher ACID TREATER.PHARMACEUTICAL OFFICER Work Phone: [facility] 06-11-2024 12:58-0400 Systolic blood pressure 115 mm[Hg] Cheryl Fisher APRN.CNP Work Phone: [facility] 06-04-2024 15:17-0400 Body temperature 97.2 [degF] Liz Salomon MD Work Phone: [facility] 06-04-2024 15:17-0400 Diastolic blood pressure 94 mm[Hg] Liz Salomon MD Work Phone: [facility] 06-04-2024 15:17-0400 Heart rate 72 /min Liz Salomon MD Work Phone: [facility] 06-04-2024 15:17-0400 SaO2% (BldA) [Mass fraction] 95 % Liz Salomon MD Work Phone: [facility] 06-04-2024 15:17-0400 Systolic blood pressure 148 mm[Hg] Liz Salomon MD Work Phone: [facility] 05-28-2024 15:24-0400 Body temperature 97.39 [degF] Liz Salomon MD Work Phone: [facility] 05-28-2024 15:24-0400 Diastolic blood pressure 96 mm[Hg] Liz Salomon MD Work Phone: [facility] 05-28-2024 15:24-0400 Heart rate 64 /min Liz Salomon MD Work Phone: [facility] 05-28-2024 15:24-0400 SaO2% (BldA) [Mass fraction] 97 % Liz Salomon MD Work Phone: [facility] 05-28-2024 15:24-0400 Systolic blood pressure 153 mm[Hg] Liz Salomon MD Work Phone: [facility] 05-08-2024 14:36-0400 Body mass index (BMI) [Ratio] 24.69 kg/m2 Mainor Ayala MD Work Phone: [facility] 05-08-2024 14:36-0400 Body weight 69.4 kg Mainor Ayala MD Work Phone: [facility] 05-08-2024 14:36-0400 Diastolic blood pressure 81 mm[Hg] Mainor Ayala MD Work Phone: [facility] 05-08-2024 14:36-0400 Heart rate 70 /min Mainor Ayala MD Work Phone: [facility] 05-08-2024 14:36-0400 SaO2% (BldA) [Mass fraction] 96 % Mainor Ayala MD Work Phone: [facility] 05-08-2024 14:36-0400 Systolic blood pressure 124 mm[Hg] Mainor Ayala MD Work Phone: [facility] 05-03-2024 09:06-0400 Body height 167.6 cm Radha Terry MD Work Phone: [facility] 05-03-2024 09:06-0400 Body mass index (BMI) [Ratio] 24.21 kg/m2 Radha Terry MD Work Phone: [facility] 05-03-2024 09:06-0400 Body temperature 97.11 [degF] Radha Terry MD Work Phone: [facility] 05-03-2024 09:06-0400 Body weight 68.04 kg Radha Terry MD Work Phone: [facility] 05-03-2024 09:06-0400 Diastolic blood pressure 89 mm[Hg] Radha Terry MD Work Phone: [facility] 05-03-2024 09:06-0400 Heart rate 63 /min Radha Terry MD Work Phone: [facility] 05-03-2024 09:06-0400 Respiratory rate 12 /min Radha Terry MD Work Phone: [facility] 05-03-2024 09:06-0400 Systolic blood pressure 139 mm[Hg] Radha Terry MD Work Phone: [facility] 05-01-2024 14:42-0400 Body mass index (BMI) [Ratio] 24.69 kg/m2 Michael Sergei DO Work Phone: [facility] 05-01-2024 14:42-0400 Body temperature 97.7 [degF] Michael Masci DO Work Phone: [facility] 05-01-2024 14:42-0400 Body weight 69.4 kg Michael Masci DO Work Phone: [facility] 05-01-2024 14:42-0400 Diastolic blood pressure 100 mm[Hg] Michael Masci DO Work Phone: [facility] 05-01-2024 14:42-0400 Heart rate 65 /min Michael Sergei DO Work Phone: [facility] 05-01-2024 14:42-0400 SaO2% (BldA) [Mass fraction] 100 % Michael Sergei DO Work Phone: [facility] 05-01-2024 14:42-0400 Systolic blood pressure 142 mm[Hg] Michael Masci DO Work Phone: [facility] 05-01-2024 13:43-0400 Body temperature 97.7 [degF] Liz Salomon MD Work Phone: [facility] 05-01-2024 13:43-0400 Diastolic blood pressure 100 mm[Hg] Liz Salomon MD Work Phone: [facility] 05-01-2024 13:43-0400 Heart rate 65 /min Liz Salomon MD Work Phone: [facility] 05-01-2024 13:43-0400 SaO2% (BldA) [Mass fraction] 100 % Liz Salomon MD Work Phone: [facility] 05-01-2024 13:43-0400 Systolic blood pressure 142 mm[Hg] Liz Salomon MD Work Phone: [facility] 04-17-2024 08:18-0500 Body height 167.6 cm Berny Pollard CNP Work Phone: [facility] 04-17-2024 08:18-0500 Body mass index (BMI) [Ratio] 24.86 kg/m2 Berny Johnson APRN - [facility] Work Phone: [facility] 04-17-2024 08:18-0500 Body temperature 97.81 [degF] Berny Johnson APRN - PHARMACEUTICAL OFFICER Work Phone: [facility] 04-17-2024 08:18-0500 Body weight 69.85 kg Berny Johnson APRN - [place] Work Phone: [facility] 04-17-2024 08:18-0500 Diastolic blood pressure 82 mm[Hg] Berny Johnson APRN - [place] Work Phone: [facility] 04-17-2024 08:18-0500 Heart rate 100 /min Berny Johnson APRN - [place] Work Phone: [facility] 04-17-2024 08:18-0500 Systolic blood pressure 148 mm[Hg] Berny Johnson APRN - [place] Work Phone: [facility] 04-16-2024 15:55-0500 Body height 167.6 cm Michael Valentinei DO Work Phone: [facility] 04-16-2024 15:55-0500 Body mass index (BMI) [Ratio] 25.26 kg/m2 Michael Sergei DO Work Phone: [facility] 04-16-2024 15:55-0500 Body temperature 97.11 [degF] Michael Masci DO Work Phone: [facility] 04-16-2024 15:55-0500 Body weight 70.99 kg Michael Masci DO Work Phone: [facility] 04-16-2024 15:55-0500 Diastolic blood pressure 88 mm[Hg] Michael Masci DO Work Phone: [facility] 04-16-2024 15:55-0500 Heart rate 67 /min Michael Masci DO Work Phone: [facility] 04-16-2024 15:55-0500 SaO2% (BldA) [Mass fraction] 98 % Michael Mackey DO Work Phone: [facility] 04-16-2024 15:55-0500 Systolic blood pressure 154 mm[Hg] Michael Mackey DO Work Phone: [facility] 04-16-2024 14:36-0500 Body mass index (BMI) [Ratio] 25.58 kg/m2 Cheryl Reddy ACID TREATER.PHARMACEUTICAL OFFICER Work Phone: [facility] 04-16-2024 14:36-0500 Body weight 70.5 kg Cheryl Reddy ACID TREATER.PHARMACEUTICAL OFFICER Work Phone: [facility] 04-16-2024 14:36-0500 Diastolic blood pressure 68 mm[Hg] Cheryl Reddy ACID TREATER.PHARMACEUTICAL OFFICER Work Phone: [facility] 04-16-2024 14:36-0500 Heart rate 75 /min Cheryl Reddy ACID TREATER.PHARMACEUTICAL OFFICER Work Phone: [facility] 04-16-2024 14:36-0500 Respiratory rate 12 /min Cheryl Reddy ACID TREATER.PHARMACEUTICAL OFFICER Work Phone: [facility] 04-16-2024 14:36-0500 SaO2% (BldA) [Mass fraction] 96 % Cheryl Reddy ACID TREATER.PHARMACEUTICAL OFFICER Work Phone: [facility] 04-16-2024 14:36-0500 Systolic blood pressure 120 mm[Hg] Cheryl Reddy ACID TREATER.PHARMACEUTICAL OFFICER Work Phone: [facility] 04-10-2024 09:09-0500 Body height 167.6 cm Radha Terry MD Work Phone: [facility] 04-10-2024 09:09-0500 Body mass index (BMI) [Ratio] 24.69 kg/m2 Radha Terry MD Work Phone: [facility] 04-10-2024 09:09-0500 Body temperature 97.59 [degF] Radha Terry MD Work Phone: [facility] 04-10-2024 09:09-0500 Body weight 69.4 kg Radha Terry MD Work Phone: [facility] 04-10-2024 09:09-0500 Diastolic blood pressure 89 mm[Hg] Radha Terry MD Work Phone: [facility] 04-10-2024 09:09-0500 Systolic blood pressure 144 mm[Hg] Radha Terry MD Work Phone: [facility] 04-02-2024 13:45-0500 Heart rate 54 /min Jaya Cazares III, MD Work Phone: [facility] 04-02-2024 13:20-0500 SaO2% (BldA) [Mass fraction] 98 % Jaya Cazares III, MD Work Phone: [facility] 04-02-2024 12:30-0500 Diastolic blood pressure 69 mm[Hg] Jaya Cazares III, MD Work Phone: [facility] 04-02-2024 12:30-0500 Respiratory rate 16 /min Jaya Cazares III, MD Work Phone: [facility] 04-02-2024 12:30-0500 Systolic blood pressure 125 mm[Hg] Jaya Cazares III, MD Work Phone: [facility] 04-02-2024 10:15-0500 Body temperature 97.2 [degF] Jaya Cazares III, MD Work Phone: [facility] 03-21-2024 15:53-0500 Body mass index (BMI) [Ratio] 25.61 kg/m2 Mainor Ayala MD Work Phone: [facility] 03-21-2024 15:53-0500 Body temperature 97.2 [degF] Mainor Ayala MD Work Phone: [facility] 03-21-2024 15:53-0500 Body weight 70.58 kg Mainor Ayala MD Work Phone: [facility] 03-21-2024 15:53-0500 Heart rate 72 /min Mainor Ayala MD Work Phone: [facility] 03-21-2024 15:53-0500 SaO2% (BldA) [Mass fraction] 94 % Mainor Ayala MD Work Phone: [facility] 03-12-2024 11:32-0500 Body mass index (BMI) [Ratio] 24.93 kg/m2 Cheryl Reddy ACID TREATER.PHARMACEUTICAL OFFICER Work Phone: [facility] 03-12-2024 11:32-0500 Body temperature 97.2 [degF] Cheryl Reddy ACID TREATER.PHARMACEUTICAL OFFICER Work Phone: [facility] 03-12-2024 11:32-0500 Body weight 68.7 kg Cheryl Reddy ACID TREATER.PHARMACEUTICAL OFFICER Work Phone: [facility] 03-12-2024 11:32-0500 Diastolic blood pressure 68 mm[Hg] Cheryl Reddy ACID TREATER.PHARMACEUTICAL OFFICER Work Phone: [facility] 03-12-2024 11:32-0500 Heart rate 63 /min Cheryl Reddy ACID TREATER.PHARMACEUTICAL OFFICER Work Phone: [facility] 03-12-2024 11:32-0500 Respiratory rate 16 /min Cheryl Reddy ACID TREATER.PHARMACEUTICAL OFFICER Work Phone: [facility] 03-12-2024 11:32-0500 SaO2% (BldA) [Mass fraction] 96 % Cheryl Reddy ACID TREATER.PHARMACEUTICAL OFFICER Work Phone: [facility] 03-12-2024 11:32-0500 Systolic blood pressure 118 mm[Hg] Cheryl Reddy ACID TREATER.PHARMACEUTICAL OFFICER Work Phone: [facility] 10-25-2023 11:36-0400 Body mass index (BMI) [Ratio] 25.98 kg/m2 Cherly Reddy ACID TREATER.PHARMACEUTICAL OFFICER Work Phone: [facility] 10-25-2023 11:36-0400 Body weight 71.6 kg Cheryl Reddy ACID TREATER.PHARMACEUTICAL OFFICER Work Phone: [facility] 10-25-2023 11:36-0400 Diastolic blood pressure 86 mm[Hg] Cheryl Reddy ACID TREATER.PHARMACEUTICAL OFFICER Work Phone: [facility] 10-25-2023 11:36-0400 Heart rate 61 /min Cheryl Reddy ACID TREATER.PHARMACEUTICAL OFFICER Work Phone: [facility] 10-25-2023 11:36-0400 Respiratory rate 18 /min Cheryl Reddy ACID TREATER.PHARMACEUTICAL OFFICER Work Phone: [facility] 10-25-2023 11:36-0400 SaO2% (BldA) [Mass fraction] 94 % Cheryl Reddy ACID TREATER.PHARMACEUTICAL OFFICER Work Phone: [facility] 10-25-2023 11:36-0400 Systolic blood pressure 124 mm[Hg] Cheryl Reddy ACID TREATER.PHARMACEUTICAL OFFICER Work Phone: [facility] 10-04-2023 15:10-0400 Body mass index (BMI) [Ratio] 25.73 kg/m2 Cheryl Reddy ACID TREATER.PHARMACEUTICAL OFFICER Work Phone: [facility] 10-04-2023 15:10-0400 Body weight 70.9 kg Cheryl Reddy ACID TREATER.PHARMACEUTICAL OFFICER Work Phone: [facility] 10-04-2023 15:10-0400 Diastolic blood pressure 84 mm[Hg] Cheryl Reddy ACID TREATER.PHARMACEUTICAL OFFICER Work Phone: [facility] 10-04-2023 15:10-0400 Heart rate 72 /min Cheryl Reddy ACID TREATER.PHARMACEUTICAL OFFICER Work Phone: [facility] 10-04-2023 15:10-0400 Respiratory rate 18 /min Cheryl Reddy ACID TREATER.PHARMACEUTICAL OFFICER Work Phone: [facility] 10-04-2023 15:10-0400 Systolic blood pressure 122 mm[Hg] Cheryl Reddy ACID TREATER.PHARMACEUTICAL OFFICER Work Phone: [facility] 09-12-2023 14:13-0400 Body mass index (BMI) [Ratio] 26.17 kg/m2 Cheryl Reddy ACID TREATER.PHARMACEUTICAL OFFICER Work Phone: [facility] 09-12-2023 14:13-0400 Body weight 72.12 kg Cheryl Reddy ACID TREATER.PHARMACEUTICAL OFFICER Work Phone: [facility] 09-12-2023 14:13-0400 Diastolic blood pressure 84 mm[Hg] Cheryl Reddy ACID TREATER.PHARMACEUTICAL OFFICER Work Phone: [facility] 09-12-2023 14:13-0400 Heart rate 73 /min Cheryl Reddy ACID TREATER.PHARMACEUTICAL OFFICER Work Phone: [facility] 09-12-2023 14:13-0400 Respiratory rate 16 /min Cheryl Reddy ACID TREATER.PHARMACEUTICAL OFFICER Work Phone: [facility] 09-12-2023 14:13-0400 SaO2% (BldA) [Mass fraction] 96 % Cheryl Reddy ACID TREATER.PHARMACEUTICAL OFFICER Work Phone: [facility] 09-12-2023 14:13-0400 Systolic blood pressure 126 mm[Hg] Cheryl Reddy ACID TREATER.PHARMACEUTICAL OFFICER Work Phone: [facility] 09-08-2023 10:33-0400 Body mass index (BMI) [Ratio] 26.02 kg/m2 Naldo Peguero MD Work Phone: [facility] 09-08-2023 10:33-0400 Body temperature 97 [degF] Naldo Peguero MD Work Phone: [facility] 09-08-2023 10:33-0400 Body weight 71.7 kg Naldo Peguero MD Work Phone: [facility] 09-08-2023 10:33-0400 Diastolic blood pressure 76 mm[Hg] Naldo Peguero MD Work Phone: [facility] 09-08-2023 10:33-0400 Heart rate 78 /min Naldo Peguero MD Work Phone: [facility] 09-08-2023 10:33-0400 Respiratory rate 18 /min Naldo Peguero MD Work Phone: [facility] 09-08-2023 10:33-0400 SaO2% (BldA) [Mass fraction] 98 % Naldo Peguero MD Work Phone: [facility] 09-08-2023 10:33-0400 Systolic blood pressure 128 mm[Hg] Naldo Peguero MD Work Phone: [facility] 09-01-2023 14:36-0400 Body mass index (BMI) [Ratio] 26.53 kg/m2 Rut Aceves ACID TREATER.PHARMACEUTICAL OFFICER Work Phone: [facility] 09-01-2023 14:36-0400 Body temperature 97.7 [degF] Rut Aceves ACID TREATER.PHARMACEUTICAL OFFICER Work Phone: [facility] 09-01-2023 14:36-0400 Body weight 73.1 kg Rut Aceves ACID TREATER.PHARMACEUTICAL OFFICER Work Phone: [facility] 09-01-2023 14:36-0400 Diastolic blood pressure 64 mm[Hg] Rut Aceves ACID TREATER.PHARMACEUTICAL OFFICER Work Phone: [facility] 09-01-2023 14:36-0400 Heart rate 76 /min Rut Aceves ACID TREATER.PHARMACEUTICAL OFFICER Work Phone: [facility] 09-01-2023 14:36-0400 Respiratory rate 16 /min Rut Aceves ACID TREATER.PHARMACEUTICAL OFFICER Work Phone: [facility] 09-01-2023 14:36-0400 SaO2% (BldA) [Mass fraction] 97 % Rut Aceves ACID TREATER.PHARMACEUTICAL OFFICER Work Phone: [facility] 09-01-2023 14:36-0400 Systolic blood pressure 106 mm[Hg] Rut Aceves ACID TREATER.PHARMACEUTICAL OFFICER Work Phone: [facility] 07-11-2023 09:31-0400 Body mass index (BMI) [Ratio] 25.94 kg/m2 Alea Langston ACID TREATER.PHARMACEUTICAL OFFICER Work Phone: [facility] 07-11-2023 09:31-0400 Body temperature 97.9 [degF] Alea Langston ACID TREATER.PHARMACEUTICAL OFFICER Work Phone: [facility] 07-11-2023 09:31-0400 Body weight 71.49 kg Alea Langston ACID TREATER.PHARMACEUTICAL OFFICER Work Phone: [facility] 07-11-2023 09:31-0400 Diastolic blood pressure 74 mm[Hg] Alea Langston ACID TREATER.PHARMACEUTICAL OFFICER Work Phone: [facility] 07-11-2023 09:31-0400 Heart rate 71 /min Alea Langston ACID TREATER.PHARMACEUTICAL OFFICER Work Phone: [facility] 07-11-2023 09:31-0400 SaO2% (BldA) [Mass fraction] 96 % Alea Langston ACID TREATER.PHARMACEUTICAL OFFICER Work Phone: [facility] 07-11-2023 09:31-0400 Systolic blood pressure 108 mm[Hg] Alea Langston ACID TREATER.PHARMACEUTICAL OFFICER Work Phone: [facility] 04-26-2023 16:42-0400 Diastolic blood pressure 88 mm[Hg] Cheryl Reddy ACID TREATER.PHARMACEUTICAL OFFICER Work Phone: [facility] 04-26-2023 16:42-0400 Systolic blood pressure 124 mm[Hg] Cheryl Reddy ACID TREATER.PHARMACEUTICAL OFFICER Work Phone: [facility] 04-26-2023 16:21-0400 Body weight 71.4 kg Cheryl Reddy ACID TREATER.PHARMACEUTICAL OFFICER Work Phone: [facility] 04-26-2023 16:21-0400 Heart rate 65 /min Cheryl Reddy ACID TREATER.PHARMACEUTICAL OFFICER Work Phone: [facility] 04-26-2023 16:21-0400 Respiratory rate 16 /min Cheryl Reddy ACID TREATER.PHARMACEUTICAL OFFICER Work Phone: [facility] 04-26-2023 16:21-0400 SaO2% (BldA) [Mass fraction] 97 % Cheryl Fisher ACID TREATER.PHARMACEUTICAL OFFICER Work Phone: [facility] 03-23-2023 11:33-0500 Body height 166 cm Alea Langston ACID TREATER.PHARMACEUTICAL OFFICER Work Phone: [facility] 03-23-2023 11:33-0500 Body temperature 98.2 [degF] Cassandra Langston ACID TREATER.PHARMACEUTICAL OFFICER Work Phone: [facility] 03-23-2023 11:33-0500 Body weight 70.76 kg Cassandra Langston ACID TREATER.PHARMACEUTICAL OFFICER Work Phone: [facility] 03-23-2023 11:33-0500 Diastolic blood pressure 86 mm[Hg] Cassandra Langston ACID TREATER.PHARMACEUTICAL OFFICER Work Phone: [facility] 03-23-2023 11:33-0500 Heart rate 71 /min Cassandra Langston ACID TREATER.PHARMACEUTICAL OFFICER Work Phone: [facility] 03-23-2023 11:33-0500 Respiratory rate 12 /min Cassandra Langston ACID TREATER.PHARMACEUTICAL OFFICER Work Phone: [facility] 03-23-2023 11:33-0500 SaO2% (BldA) [Mass fraction] 96 % Cassandra Langston ACID TREATER.PHARMACEUTICAL OFFICER Work Phone: [facility] 03-23-2023 11:33-0500 Systolic blood pressure 127 mm[Hg] Alea Langston ACID TREATER.PHARMACEUTICAL OFFICER Work Phone: [facility] 09-29-2022 16:04-0400 Diastolic blood pressure 84 mm[Hg] Christiano Wooten MD Work Phone: [facility] 09-29-2022 16:04-0400 Heart rate 63 /min Christiano Wooten MD Work Phone: [facility] 09-29-2022 16:04-0400 Systolic blood pressure 143 mm[Hg] Christiano Wooten MD Work Phone: [facility] 09-29-2022 15:52-0400 Body weight 71.22 kg Christiano Wooten MD Work Phone: [facility] 09-29-2022 15:52-0400 Respiratory rate 16 /min Christiano Wooten MD Work Phone: [facility] 05-30-2022 08:23-0400 Body height 167.64 cm [facility] 05-30-2022 08:23-0400 Body mass index (BMI) [Ratio] 24.2 kg/m2 [facility] 05-30-2022 08:23-0400 Body temperature 97.3 [degF] [facility] 05-30-2022 08:23-0400 Body weight 68.03 kg [facility] 05-30-2022 08:23-0400 Diastolic blood pressure 64 mm[Hg] [facility] 05-30-2022 08:23-0400 Heart rate 67 /min [facility] 05-30-2022 08:23-0400 Respiratory rate 14 /min [facility] 05-30-2022 08:23-0400 SaO2% (BldA) [Mass fraction] 97 % [facility] 05-30-2022 08:23-0400 Systolic blood pressure 150 mm[Hg] [facility] 01-13-2022 11:19-0500 Body height 168.5 cm Alea Langston ACID TREATER.PHARMACEUTICAL OFFICER Work Phone: [facility] 01-13-2022 11:19-0500 Body temperature 96.49 [degF] Alea Langston ACID TREATER.PHARMACEUTICAL OFFICER Work Phone: [facility] 01-13-2022 11:19-0500 Body weight 63.28 kg Alea Langston ACID TREATER.PHARMACEUTICAL OFFICER Work Phone: [facility] 01-13-2022 11:19-0500 Diastolic blood pressure 88 mm[Hg] Alea Langston ACID TREATER.PHARMACEUTICAL OFFICER Work Phone: [facility] 01-13-2022 11:19-0500 Heart rate 63 /min Alea Langston ACID TREATER.PHARMACEUTICAL OFFICER Work Phone: [facility] 01-13-2022 11:19-0500 SaO2% (BldA) [Mass fraction] 99 % Alea Langston ACID TREATER.PHARMACEUTICAL OFFICER Work Phone: [facility] 01-13-2022 11:19-0500 Systolic blood pressure 142 mm[Hg] Alea Langston ACID TREATER.PHARMACEUTICAL OFFICER Work Phone: [facility] 09-07-2021 15:16-0400 Body height 166.4 cm [facility] Work Phone: [facility] 09-07-2021 15:16-0400 Body weight 59.42 kg [facility] Work Phone: [facility] 09-07-2021 15:16-0400 Heart rate 70 /min [facility] Work Phone: [facility] 09-07-2021 15:16-0400 Respiratory rate 14 /min [facility]str Work Phone: [facility] 09-07-2021 15:16-0400 SaO2% (BldA) [Mass fraction] 95 % [facility] Work Phone: [facility] 09-02-2021 13:33-0400 Body weight 58.97 kg Sarah Pack ACID TREATER.PHARMACEUTICAL OFFICER Work Phone: [facility] 09-02-2021 13:33-0400 Diastolic blood pressure 64 mm[Hg] Sarah Pack ACID TREATER.PHARMACEUTICAL OFFICER Work Phone: [facility] 09-02-2021 13:33-0400 Heart rate 76 /min Sarah Pack ACID TREATER.PHARMACEUTICAL OFFICER Work Phone: [facility] 09-02-2021 13:33-0400 Systolic blood pressure 98 mm[Hg] Sarah Pack ACID TREATER.PHARMACEUTICAL OFFICER Work Phone: [facility] 08-25-2021 10:46-0400 Body temperature 97.7 [degF] Christiano Wooten MD Work Phone: [facility] 08-25-2021 10:46-0400 Body weight 58.97 kg Christiano Wooten MD Work Phone: [facility] 08-25-2021 10:46-0400 Diastolic blood pressure 66 mm[Hg] Christiano Wooten MD Work Phone: [facility] 08-25-2021 10:46-0400 Heart rate 72 /min Christiano Wooten MD Work Phone: [facility] 08-25-2021 10:46-0400 Respiratory rate 16 /min Christiano Wooten MD Work Phone: [facility] 08-25-2021 10:46-0400 Systolic blood pressure 108 mm[Hg] Christiano Wooten MD Work Phone: [facility] 07-20-2021 11:22-0400 Body weight 58.97 kg Cheryl Older ACID TREATER.PHARMACEUTICAL OFFICER Work Phone: [facility] 07-20-2021 11:22-0400 Diastolic blood pressure 86 mm[Hg] Cheryl Older ACID TREATER.PHARMACEUTICAL OFFICER Work Phone: [facility] 07-20-2021 11:22-0400 Heart rate 60 /min Cheryl Older ACID TREATER.PHARMACEUTICAL OFFICER Work Phone: [facility] 07-20-2021 11:22-0400 Respiratory rate 14 /min Cheryl Older ACID TREATER.PHARMACEUTICAL OFFICER Work Phone: [facility] 07-20-2021 11:22-0400 Systolic blood pressure 122 mm[Hg] Cheryl Older ACID TREATER.PHARMACEUTICAL OFFICER Work Phone: [facility] 07-08-2021 16:10-0400 Body height 167.64 cm [facility] Work Phone: 07-08-2021 16:10-0400 Body mass index (BMI) [Ratio] 20.9 kg/m2 [facility] Work Phone: 07-08-2021 16:10-0400 Body temperature 97.5 [degF] [facility] Work Phone: 07-08-2021 16:10-0400 Body weight 58.96 kg [facility] Work Phone: 07-08-2021 16:10-0400 Diastolic blood pressure 93 mm[Hg] [facility] Work Phone: 07-08-2021 16:10-0400 Heart rate 71 /min [facility] Work Phone: 07-08-2021 16:10-0400 Respiratory rate 18 /min [facility] Work Phone: 07-08-2021 16:10-0400 SaO2% (BldA) [Mass fraction] 96 % [facility] Work Phone: 07-08-2021 16:10-0400 Systolic blood pressure 150 mm[Hg] [facility] Work Phone: 05-31-2021 14:25-0400 Body weight 58.51 kg Lorena Claros ACID TREATER.HOSTEL MANAGER Work Phone: [facility] 05-31-2021 14:25-0400 Diastolic blood pressure 78 mm[Hg] Lorena Claros ACID TREATER.HOSTEL MANAGER Work Phone: [facility] 05-31-2021 14:25-0400 Heart rate 68 /min Lorena Claros ACID TREATER.HOSTEL MANAGER Work Phone: [facility] 05-31-2021 14:25-0400 SaO2% (BldA) [Mass fraction] 98 % Lorena Claros ACID TREATER.HOSTEL MANAGER Work Phone: [facility] 05-31-2021 14:25-0400 Systolic blood pressure 110 mm[Hg] Lorena Claros ACID TREATER.HOSTEL MANAGER Work Phone: [facility] Encounters Encounter Date Encounter Type Care Provider Facility Start: 08-12-2024 End: 08-12-2024 Patient encounter procedure Pina SALINAS -[facility] Work Phone: Start: 08-12-2024 End: 08-12-[address] 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) Start: 07-10-2024 End: 07-23-2024 Radiation Oncology Note Liz Salomon MD Work Phone: Radiation Oncology Comment on above: Completion Note Start: 07-10-2024 End: 07-16-2024 Telephone encounter Michael Mackey DO Work Phone: Hematology/Oncology Comment on above: Patient Question Start: 07-09-2024 End: 07-09-2024 ambulatory DAUNG AIME Facility:[facility] Start: 07-04-2024 ambulatory DAUNG AIME Facility:[facility] Start: 07-03-2024 End: 07-03-2024 ambulatory [facility] Facility:[facility] Start: 07-02-2024 End: 07-02-2024 ambulatory [facility] Facility:[facility] Start: 07-01-2024 End: 07-01-2024 ambulatory [facility] Facility:[facility] Start: 06-28-2024 End: 06-28-2024 ambulatory [facility] Start: 06-27-2024 End: 06-27-2024 ambulatory [facility] Start: 06-26-2024 End: 06-26-2024 ambulatory [facility] Facility:[facility] Start: 06-26-2024 End: 06-26-2024 Office outpatient visit 25 minutes Michael Mackey DO Work Phone: Hematology/Oncology Comment on above: 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) (Primary Dx); Lymphocytic colitis Start: 06-26-2024 End: 06-26-2024 ambulatory MICHAEL MACKEY Facility:[facility] Start: 06-25-2024 End: 06-25-2024 Patient encounter procedure Liz Slaomon MD Work Phone: Radiation Oncology Comment on above: 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) (Primary Dx) Start: 06-25-2024 End: 06-25-2024 ambulatory LIZ SALOMON Facility:[facility] Start: 06-24-2024 End: 06-24-2024 ambulatory LIZ SALOMON Facility:[facility] Start: 06-21-2024 End: 06-21-2024 ambulatory [facility] Facility:[facility] Start: 06-20-2024 End: 06-20-2024 [facility] Facility:[facility] Start: 06-19-2024 End: 06-19-2024 ambulatory [facility] Facility:[facility] Start: 06-18-2024 End: 06-18-2024 Patient encounter procedure Liz Salomon MD Work Phone: Radiation Oncology Comment on above: 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) (Primary Dx) Start: 06-18-2024 End: 06-18-2024 ambulatory LIZ SALOMON Facility:[facility] Start: 06-17-2024 End: 06-17-2024 ambulatory LIZ SALOMON Facility:[facility] Start: 06-14-2024 End: 06-14-2024 ambulatory [facility] Facility:[facility] Start: 06-13-2024 End: 06-13-2024 ambulatory LIZ SALOMON Facility:[facility] Start: 06-12-2024 End: 06-12-2024 ambulatory [facility] Facility:[facility] Start: 06-11-2024 End: 06-11-2024 Patient encounter procedure Liz Salomon MD Work Phone: Radiation Oncology Comment on above: 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) (Primary Dx) Start: 06-11-2024 End: 06-11-2024 ambulatory [facility] Facility:[facility] Start: 06-11-2024 End: 06-11-2024 Office outpatient visit 15 minutes Cheryl Fisher APRN.CNP Work Phone: Internal Medicine [place] Comment on above: Elevated blood press ure reading (Primary Dx); Anxiety; Dependent edema Start: 06-11-2024 End: 06-11-2024 ambulatory CHERYL FISHER Facility:[facility] Start: 06-10-2024 End: 06-10-2024 ambulatory [facility] Facility:[facility] Start: 06-07-2024 End: 06-07-2024 ambulatory [facility] Facility[facility] Start: 06-06-2024 End: 06-06-2024 ambulatory [facility] Facility:[facility] Start: 06-05-2024 End: 06-05-2024 ambulatory [facility] Facility:[facility] Start: 06-04-2024 End: 06-04-2024 Patient encounter procedure Liz Salomon MD Work Phone: Radiation Oncology Comment on above: 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) (Primary Dx) Start: 06-04-2024 End: 06-04-2024 ambulatory [facility] Facility:[facility] Start: 06-03-2024 End: 06-03-2024 ambulatory [facility] Facility:[facility] Start: 05-31-2024 End: 05-31-2024 ambulatory [facility] Start: 05-30-2024 End: 05-30-2024 ambulatory [facility] Facility:[facility] Start: 05-29-2024 End: 05-29-2024 [facility]ulatory [facility] Start: 05-28-2024 End: 05-28-2024 Patient encounter procedure Liz Salomon MD Work Phone: Radiation Oncology Comment on above: 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) (Primary Dx) Start: 05-28-2024 End: 05-28-2024 ambulatory LIZ SALOMON Facility:[facility] Start: 05-27-2024 End: 05-27-2024 Telephone encounter Alea Langston APRN.CNP Work Phone: Hematology/Oncology Comment on above: Patient Question; Ap pointment Start: 05-27-2024 End: 05-27-2024 ambulatory LIZ SALOMON Facility:[facility] Start: 05-20-2024 End: 05-23-2024 Patient encounter procedure Liz Salomon MD Work Phone: Radiation Oncology Start: 05-20-2024 End: 05-23-2024 Radiation Oncology Note Liz Salomon MD Work Phone: Radiation Oncology Comment on above: Simulation Note Treatment Planning Start: 05-20-2024 End: 05-20-2024 ambulatory CHRISTIANO WOOTEN Facility:[facility] Start: 05-20-2024 End: 05-20-2024 Nursing evaluation of patient and report Nurse Leighann [facility] Work Phone: Radiation Oncology Comment on above: 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) (Primary Dx) Start: 05-16-2024 End: 05-16-2024 Orders Only Liz Salomon MD Work Phone: Radiation Oncology Comment on above: 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) Start: 05-09-2024 End: 06-03-2024 Telephone encounter Mainor Ayala MD Work Phone: General Surgery Comment on above: Medication Problem; Medication Question Start: 05-08-2024 End: 05-08-2024 ambulatory MAINOR AYALA Facility:[facility] Start: 05-08-2024 End: 05-08-2024 Patient encounter procedure Mainor Ayala MD Work Phone: General Surgery Comment on above: Chronic diarrhea (Pr imary Dx); Lymphocytic colitis Start: 05-03-2024 End: 05-03-2024 Office outpatient visit 15 minutes Radha Terry MD Work Phone: [facility] Comment on above: Recurrent breast can cer, right (HCC) (Primary Dx); H/O right mastectomy Start: 05-03-2024 End: 05-03-2024 ambulatory [facility] Start: 05-01-2024 End: 05-01-2024 ambulatory Michael Mackey DO Work Phone: Hematology/Oncology Comment on above: 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) (Primary Dx); Lymphocytic colitis Start: 05-01-2024 End: 05-01-2024 Patient encounter procedure Michael Mackey DO Work Phone: Hematology/Oncology Comment on above: 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) Start: 04-29-2024 End: 04-29-2024 Telephone encounter Bonnie Geiger [facility] Comment on above: Results (Genetics) Start: 04-26-2024 End: 04-26-2024 Telephone encounter Hannah Zhong APRN - PHARMACEUTICAL OFFICER Work Phone: [facility] Comment on above: Results Start: 04-26-2024 End: 04-26-2024 Subsequent hospital visit by physician Radha Terry MD Work Phone: [facility] Nuclear Medicine Comment on above: Recurrent breast can cer, right (HCC) Start: 04-26-2024 End: 04-26-2024 ambulatory RADHA [facility] Start: 04-22-2024 End: 04-22-2024 Subsequent hospital visit by physician Radha Terry MD Work Phone: [facility] Comment on above: Recurrent breast can cer, right (HCC) Recurrent breast can cer, right (HCC); LAD (lymphadenopathy) of left cervical region Start: 04-22-2024 End: 04-22-2024 [facility] Start: 04-17-2024 End: 04-17-2024 Office outpatient visit 25 minutes Berny Johnson APRN - PHARMACEUTICAL OFFICER Work Phone: [facility] Comment on above: Genetic testing (Jing renetta Dx); Recurrent breast cancer, right (HCC) Start: 04-17-2024 End: 04-17-2024 ambulatory [facility] Start: 04-17-2024 End: 04-17-2024 Subsequent hospital visit by physician Radha Terry MD Work Phone: [facility] Comment on above: Recurrent breast can cer, right (HCC) Start: 04-17-2024 End: 04-17-2024 ambulatory RADHA CASTRO [facility] Start: 04-16-2024 End: 04-16-2024 ambulatory Michael Mackey DO Work Phone: Hematology/Oncology Comment on above: Malignant neoplasm o f upper-outer quadrant of right breast in female, estrogen receptor positive (HCC) (Primary Dx); Breast cancer metastasized to axillary lymph node, right (HCC) Start: 04-16-2024 End: 04-16-2024 Patient encounter procedure Michael Mackey DO Work Phone: Hematology/Oncology Comment on above: Chronic diarrhea (Pr imary Dx); Recurrent malignant neoplasm of right breast (HCC) Start: 04-10-2024 End: 04-10-2024 Subsequent hospital visit by physician Radha Terry MD Work Phone: [facility] [address] [facility] Comment on above: Recurrent breast can cer, right (HCC) Start: 04-10-2024 End: 04-10-2024 ambulatory RADHA TERRY [facility] Start: 04-10-2024 End: 04-10-2024 ambulatory [facility]IANO [facility] Start: 04-10-2024 End: 04-10-2024 Office outpatient new 45 minutes Radha Terry MD Work Phone: [facility] Comment on above: Recurrent breast can cer, right (HCC) (Primary Dx); LAD (lymphadenopathy) of left cervical region Start: 04-05-2024 End: 04-05-2024 Telephone encounter Michael Mackey DO Work Phone: Hematology/Oncology Start: 04-02-2024 End: 04-02-2024 Anesthesia consultation Edvin Zhang MD Work Phone: [facility] Start: 04-02-2024 End: 04-02-2024 ambulatory [facility] Start: 04-02-2024 End: 04-02-2024 Subsequent hospital visit by physician Jaya Cazares MD Work Phone: [facility] Comment on above: 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, unspecified; Disproportion of reconstructed breast Start: 03-26-2024 End: 03-26-2024 ambulatory [facility] Start: 03-26-2024 End: 03-26-2024 Encounter for other preprocedural examination [facility] Start: 03-22-2024 End: 03-22-2024 ambulatory Jonas Ambrosio PT Work Phone: [facility] Comment on above: Spinal stenosis, lum bar region, without neurogenic claudication (Primary Dx) Start: 03-21-2024 End: 03-21-2024 Patient encounter procedure Mainor Ayala MD Work Phone: General Surgery Comment on above: Chronic diarrhea; Colon cancer screening Start: 03-21-2024 End: 03-21-2024 ambulatory MAINOR AYALA Facility:[facility] Start: 03-15-2024 End: 03-15-2024 ambulatory Evelyn Pastor CREW DIRECTOR Work Phone: [facility] Comment on above: Spinal stenosis, lum bar region, without neurogenic claudication (Primary Dx) Start: 03-13-2024 End: 03-15-2024 ambulatory Cheryl Fisher APRN.PHARMACEUTICAL OFFICER Work Phone: Internal Medicine [place] Comment on above: lab results Start: 03-13-2024 End: 03-15-2024 E-mail encounter from caregiver Cheryl Fisher APRN.PHARMACEUTICAL OFFICER Work Phone: Internal Medicine [place] Start: 03-12-2024 End: 03-12-2024 ambulatory CHERYL FISHER Facility:[facility] Start: 03-12-2024 End: 03-12-2024 Patient encounter procedure Cheryl Fisher ACID TREATER.PHARMACEUTICAL OFFICER Work Phone: Internal Medicine [place] Comment on above: Chronic diarrhea (Pr imary Dx); Unintentional weight loss; Colon cancer screening Start: 03-08-2024 End: 03-08-2024 ambulatory Evelyn Pastor CREW DIRECTOR Work Phone: [facility] Comment on above: Spinal stenosis, lum bar region, without neurogenic claudication (Primary Dx) Start: 02-29-2024 End: 02-29-2024 ambulatory Jonas Ambrosio PT Work Phone: [facility] Comment on above: Spinal stenosis, lum bar region, without neurogenic claudication (Primary Dx) Start: 02-02-2024 End: 02-09-2024 Telephone encounter Francie Melissa RN Hematology/Oncology Start: 01-31-2024 End: 01-31-2024 ambulatory Christiano Wooten Facility[facility] Start: 01-17-2024 End: 01-17-2024 ambulatory Christiano Wooten Facility:[facility] Start: 01-02-2024 End: 01-03-2024 ambulatory Ra Ballard Facility:[facility] Start: 10-26-2023 End: 10-26-2023 Patient encounter procedure Lavonne Fraire ACID TREATER.PHARMACEUTICAL OFFICER Work Phone: [facility] Start: 10-25-2023 End: 10-25-2023 ambulatory CHERYL FISHER Facility:[facility] Start: 10-25-2023 End: 10-25-2023 Patient encounter procedure Cheryl Fisher ACID TREATER.PHARMACEUTICAL OFFICER Work Phone: Internal Medicine [place] Comment on above: Left low back pain, unspecified chronicity, unspecified whether sciatica present (Primary Dx); Left leg pain; Numbness and tingling of left lower extremity Start: 10-24-2023 End: 10-24-2023 ambulatory Cheryl Fisher APRN.PHARMACEUTICAL OFFICER Work Phone: Internal Medicine [place] Comment on above: MRI results Start: 10-24-2023 End: 10-24-2023 E-mail encounter from caregiver Cheryl M Reddy ROJAS Work Phone: Internal Medicine [place] Start: 10-24-2023 End: 11-06-2023 Telephone encounter Cheryl Fisher APRN.PHARMACEUTICAL OFFICER Work Phone: Internal Medicine [place] Start: 10-19-2023 ambulatory CHERYL FISHER Facil ity:[facility] Start: 10-19-2023 End: 10-19-2023 Subsequent hospital visit by physician Mri [facility] (1.5t[facility] Comment on above: Numbness and tinglin g of left lower extremity [R20.0, R20.2] Start: 10-09-2023 End: 10-09-2023 ambulatory Jonas Ambrosio PT Work Phone: [facility] Comment on above: Acute left-sided low back pain with left-sided sciatica (Primary Dx) Start: 10-09-2023 End: 10-09-2023 Telephone encounter Cheryl Fisher APRN.PHARMACEUTICAL OFFICER Work Phone: Internal Medicine [place] Comment on above: Patient Question Start: 10-04-2023 End: 10-04-2023 ambulatory CHERYL FISHER Facility:[facility] Start: 10-04-2023 End: 10-04-2023 Patient encounter procedure Cheryl Fisher APRN.PHARMACEUTICAL OFFICER Work Phone: Internal Medicine [place] Comment on above: Acute left-sided low back pain with left-sided sciatica (Primary Dx); Diarrhea, unspecified type; Numbness and tingling of left lower extremity; Weakness of left lower extremity; Radiculopathy of lumbar region; Acute hip pain, left; Left groin pain; History of breast cancer Start: 10-03-2023 End: 10-03-2023 ambulatory Jonas Ambrosio PT Work Phone: [facility] Comment on above: Acute left-sided low back pain with left-sided sciatica (Primary Dx) Start: 10-03-2023 End: 10-03-2023 Telephone encounter Cheryl Fisher APRN.PHARMACEUTICAL OFFICER Work Phone: Internal Medicine [place] Start: 09-29-2023 End: 09-29-2023 ambulatory Evelyn Pastor CREW DIRECTOR Work Phone: [facility] Comment on above: Acute left-sided low back pain with left-sided sciatica (Primary Dx) Start: 09-12-2023 End: 09-12-2023 ambulatory Jonas Ambrosio PT Work Phone: [facility] Comment on above: Acute left-sided low back pain with left-sided sciatica Start: 09-12-2023 End: 09-12-2023 Subsequent hospital visit by physician [facility] Work Phone: Radiology Comment on above: Acute hip pain, left [M25.552] Start: 09-12-2023 End: 09-12-2023 ambulatory CHERYL FISHER Facility:[facility] Start: 09-12-2023 End: 09-12-2023 Patient encounter procedure Cheryl Fisher ACID TREATER.PHARMACEUTICAL OFFICER Work Phone: Internal Medicine [place] Comment on above: Acute left-sided low back pain with left-sided sciatica (Primary Dx); Acute hip pain, left; Acute pain of left lower extremity Start: 09-08-2023 End: 09-08-2023 ambulatory CHRISTIANO WOOETN Facility:[facility] Start: 09-08-2023 End: 09-08-2023 Patient encounter procedure Naldo Peguero MD Work Phone: [place] [facility] Comment on above: Acute left-sided low back pain with left-sided sciatica (Primary Dx) Start: 09-01-2023 End: 09-01-2023 ambulatory CHELSEA KASSIDY Facility:[facility] Start: 09-01-2023 End: 09-01-2023 Patient encounter procedure Rut Aceves ACID TREATER.PHARMACEUTICAL OFFICER Work Phone: [place] [facility] Comment on above: Left sided sciatica (Primary Dx) Start: 08-03-2023 Telephone encounter Alea jesus ACID TREATER.PHARMACEUTICAL OFFICER Work Phone: Hematology/Oncology Start: 08-02-2023 End: 08-02-2023 ambulatory ALEA LANGSTON Facility:[facility] Start: 08-02-2023 End: 08-02-2023 Subsequent hospital visit by physician Us [facility] Work Phone: Radiology Comment on above: Personal history of breast cancer [Z85.3] Start: 07-11-2023 End: 07-11-2023 ambulatory Alea Langston ACID TREATER.PHARMACEUTICAL OFFICER Work Phone: Hematology/Oncology Comment on above: Personal history of breast cancer (Primary Dx); Axillary pain, right; Breast skin changes Start: 07-11-2023 End: 07-11-2023 Patient encounter procedure Alea Langston ACID TREATER.PHARMACEUTICAL OFFICER Work Phone: Hematology/Oncology Start: 07-04-2023 Documentation procedure Mammography Coordinator [facility] Start: 07-04-2023 Letter encounter Mammography Coordinator [facility] Start: 07-03-2023 End: 07-03-2023 Subsequent hospital visit by physician Screen Mammo [facility] Comment on above: Encounter for screen ing mammogram for malignant neoplasm of breast [Z12.31] Start: 07-03-2023 Telephone encounter Alea jesus APRN.PHARMACEUTICAL OFFICER Work Phone: Hematology/Oncology Comment on above: Symptoms Start: 04-26-2023 End: 04-26-2023 Patient encounter procedure Cheryl Fisher ACID TREATER.PHARMACEUTICAL OFFICER Work Phone: Internal Medicine [place] Comment on above: Axillary pain, right (Primary Dx); Leg cramps; Elevated blood pressure reading; Colon cancer screening Start: 03-23-2023 Telephone encounter Alea jesus APRN.PHARMACEUTICAL OFFICER Work Phone: Hematology/Oncology Start: 03-23-2023 End: 03-23-2023 Patient encounter procedure Alea Langston ACID TREATER.PHARMACEUTICAL OFFICER Work Phone: Hematology/Oncology Comment on above: Personal history of breast cancer (Primary Dx); Examination of participant in clinical trial Start: 10-03-2022 Telephone encounter Christiano hernandez MD Work Phone: Internal Medicine [place] Comment on above: Orders Start: 10-03-2022 End: 10-03-2022 Subsequent hospital visit by physician [facility] Work Phone: Radiology Comment on above: Urinary hesitancy [R 39.11] Start: 09-29-2022 End: 09-29-2022 Patient encounter procedure Christiano Wooten MD Work Phone: Internal Medicine [place] Comment on above: Urinary hesitancy (P rimary Dx); Pelvic pain in female; Screening for lipid disorders; Encounter for screening mammogram for malignant neoplasm of breast; Elevated blood pressure reading Start: 06-28-2022 End: 06-28-2022 Subsequent [facility] Comment on above: Abnormal mammogram [ R92.8] Start: 05-30-2022 ambulatory Christiano vega MD Work Phone: Internal Medicine [place] Comment on above: Chest Pain Start: 05-30-2022 End: 05-30-2022 [facility] Start: 01-13-2022 Nursing evaluation o f patient and report Francie Melissa RN Hematology/Oncology Comment on above: Examination of parti cipant in clinical trial (Primary Dx) Start: 01-13-2022 End: 01-13-2022 Patient encounter procedure Francie Melissa RN Hematology/Oncology Comment on above: Personal history of breast cancer (Primary Dx); Pain of left clavicle; Examination of participant in clinical trial Start: 01-05-2022 Telephone encounter Francie Melissa RN Hematology/Oncology Comment on above: Future Appointment Appointment Start: 12-29-2021 Documentation procedure Mammography Coordinator [facility] Start: 12-29-2021 Letter encounter Mammography Coordinator [facility] Start: 12-29-2021 End: 12-29-2021 Subsequent hospital visit by physician Diagnostic Mammo [facility] M[facility]ogram Comment on above: Abnormal mammogram [ R92.8] Start: 11-23-2021 End: 11-23-2021 Patient encounter procedure Ryan Avalos OD Work Phone: Optometry Comment on above: Hyperopia, bilateral (Primary Dx); Presbyopia Start: 11-22-2021 Documentation procedure Mammography Coordinator [facility] Start: 11-22-2021 Letter encounter Mammography Coordinator [facility] Start: 11-19-2021 End: 11-19-2021 Subsequent hospital visit by physician Screen Mammo [facility]ogram Comment on above: Malignant neoplasm o f right breast in female, estrogen receptor positive, unspecified site of breast (HCC) [C50.911, Z17.0] Start: 11-09-2021 End: 11-09-2021 Patient encounter procedure Ryan Avalos OD Work Phone: Optometry Comment on above: Hyperopia, bilateral (Primary Dx); Presbyopia Start: 11-05-2021 End: 11-05-2021 Patient encounter procedure Gila Cruz OD Work Phone: Ophthalmology Comment on above: Hyperopia, bilateral (Primary Dx); Presbyopia Start: 11-02-2021 End: 11-02-2021 Patient encounter procedure Ryan Avalos OD Work Phone: Optometry Comment on above: 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); Retinal hole, right; Hyperopia, bilateral; Presbyopia Start: 10-07-2021 End: 10-07-2021 ambulatory Kindra Romero CCC-PRIMARY CARE PEDIATRICIAN Work Phone: [facility] Comment on above: Choking on, sequela (Primary Dx) Start: 10-04-2021 Telephone encounter Francie Melissa RN Hematology/Oncology Comment on above: Appointment Start: 09-22-2021 End: 09-22-2021 Patient encounter procedure Kena Kitchen PA-C Work Phone: Otolaryngology Comment on above: Laryngeal hyperfunct ion (Primary Dx); Vocal cord edema; Hoarseness of voice Start: 09-07-2021 End: 09-07-2021 ambulatory Respiratory Therapist [facility] Work Phone: Pulmonary Medicine Comment on above: Spirometry Start: 09-07-2021 End: 09-07-2021 Patient encounter procedure Respiratory Therapist [facility] Work Phone: [facility] Start: 09-02-2021 End: 09-02-2021 Patient encounter procedure Sarah Jefferson APRN.PHARMACEUTICAL OFFICER Work Phone: Gastroenterology Comment on above: Choking, sequela (Pr imary Dx); Throat dryness; Cough, unspecified type Start: 08-25-2021 End: 08-25-2021 Subsequent hospital visit by physician Xr [facility] [place] Work Phone: Radiology Comment on above: Pneumonia of left lo wer lobe due to infectious organism [J18.9] Start: 08-25-2021 End: 08-25-2021 Patient encounter procedure Christiano Wooten MD Work Phone: Internal Medicine [place] Comment on above: Pneumonia of left lo wer lobe due to infectious organism (Primary Dx); Wheezing; Tobacco use disorder; Need for vaccination Start: 07-20-2021 End: 07-20-2021 Patient encounter procedure Cheryl Denton ACID TREATER.PHARMACEUTICAL OFFICER Work Phone: Internal Medicine [place] Comment on above: Colitis presumed to be due to infection (Primary Dx); Acute gastritis, presence of bleeding unspecified, unspecified gastritis type; Viral URI; Diarrhea of presumed infectious origin; Vomiting, unspecified vomiting type, unspecified whether nausea present Start: 07-08-2021 End: 07-08-2021 [facility] Start: 07-08-2021 Telephone encounter Christiano hernandez MD Work Phone: Internal Medicine [place] Comment on above: Patient Update Start: 05-31-2021 End: 05-31-2021 Subsequent hospital visit by physician Xr [facility] [place] Work Phone: Radiology Comment on above: Smoking [F17.200] Start: 05-31-2021 End: 05-31-2021 Patient encounter procedure Lorena Claros APRN.HOSTEL MANAGER Work Phone: Internal Medicine [place] Comment on above: Globus sensation (Pr imary Dx); Colon cancer screening; Smoking; Tobacco use disorder Start: 04-07-2021 End: 04-11-2021 ambulatory MARIAM DO [facility] Start: 12-23-2020 ambulatory MIROSLAVA BROOKS Facility:[facility] Start: 12-17-2020 ambulatory MIROSLAVA BROOKS Facility:[facility] Start: 12-16-2020 ambulatory MIROSLAVA BROOKS Facility:[facility] Start: 12-15-2020 ambulatory MIROSLAVA BROOKS Facility:[facility] Start: 06-26-2020 End: 06-27-2020 ambulatory MARIAM GILBERT SAM [facility] Start: 06-26-2020 End: 06-26-2020 Subsequent hospital visit by physician Mariam Do DO Work Phone: [facility] Comment on above: Arrived Start: 06-09-2020 End: 06-10-2020 Emergency department patient visit CHRISTIANO WOOTEN [facility] Start: 05-22-2020 End: 05-22-2020 Patient encounter status Xr [place] Work Phone: [facility] Start: 05-22-2020 End: 05-22-2020 Subsequent hospital visit by physician Jayson [facility] [place] Work Phone: Radiology Comment on above: Routine medical exam [Z00.00] Start: 02-27-2017 End: 02-27-2017 Emergency department patient visit TEA ARANDA Facility:[facility] Start: 11-12-2013 Patient encounter procedure Lorena Claros CHAS.HOSTEL MANAGER Work Phone: [facility] Work Phone: Procedures Date Procedure Procedure Detail Performing Clinician Start: 05-03-2024 Follow-up visit Follow-up SERA TERRY Start: 04-26-2024 Bone &/joint imaging whole body Radha Terry MD Work Phone: Start: 04-17-2024 Mri breast without&w ith contrast w/cad bilateral Radha Terry MD Work Phone: Start: 04-10-2024 Radiologic exam ches t 2 views Radha Terry MD Work Phone: Start: 04-10-2024 Adult depression scr eening assessment Radha Terry MD Work Phone: Start: 04-02-2024 Peripheral block anesthesia Yarelis Witherow KLYSTROM TUBE TESTER Work Phone: Start: 04-02-2024 SC AN ELECTIVE ENDOT [employer] Yarelis Witherow KLYSTROM TUBE TESTER Work Phone: Start: 03-21-2024 Inf agent det nuclei c acid clostridium amp probe Mainor Ayala MD Work Phone: Start: 03-21-2024 Nfct agent dna/rna gastrointestinal pathogen Mainor Ayala MD Work Phone: Start: 10-25-2023 Urnls dip stick/tabl et reagent auto microscopy Cheryl Fisher ACID TREATER.PHARMACEUTICAL OFFICER Work Phone: Start: 09-12-2023 Radex hip unilateral with pelvis 2-3 views Cheryl Fisher ACID TREATER.PHARMACEUTICAL OFFICER Work Phone: Start: 08-02-2023 Us breast uni real t spring with image limited Alea Langston ACID TREATER.PHARMACEUTICAL OFFICER Work Phone: Start: 08-02-2023 End: 08-02-2023 Diagnostic mammography computer-aided detcj uni Alea Langston ACID TREATER.PHARMACEUTICAL OFFICER Work Phone: Start: 07-03-2023 Mammography Sarah calvin ACID TREATER - PHARMACEUTICAL OFFICER Work Phone: Start: 10-03-2022 Us pelvic nonobstetr ic image dcmtn limited/f/u Christiano Wooten MD Work Phone: Start: 09-29-2022 Urnls dip stick/tabl et reagent auto microscopy Christiano Wooten MD Work Phone: Start: 09-29-2022 Urnls dip stick/tabl et rgnt auto w/o microscopy Christiano Wooten MD Work Phone: Start: 09-29-2022 Lipid 1996 panel - S lorrie or Plasma Us 1 Work Phone: Start: 06-28-2022 Us breast uni real t spring with image limited Miroslava Brooks ACID TREATER.PHARMACEUTICAL OFFICER Work Phone: Start: 06-28-2022 Digital breast tomos ynthesis unilateral Miroslava Brooks ACID TREATER.PHARMACEUTICAL OFFICER Work Phone: Start: 05-30-2022 Plain chest X-ray Start: 12-29-2021 Us breast uni real t spring with image limited Miroslava Brooks ACID TREATER.PHARMACEUTICAL OFFICER Work Phone: Start: 12-29-2021 JANE DIAG W QUINTON LEFT Da rby Langston ACID TREATER.PHARMACEUTICAL OFFICER Work Phone: Start: 11-19-2021 Mammography Ryan Eagle rider II, OD Work Phone: Start: 09-07-2021 Brncdilat rspse spmt ry pre&post-brncdilat admn Christiano Wooten MD Work Phone: Start: 08-25-2021 Radiologic exam ches t 2 views Christiano Wooten MD Work Phone: Start: 07-08-2021 Computed tomography of abdomen and pelvis with intravenous contrast Start: 05-31-2021 Radiologic exam ches t 2 views Lorena Claros ACID TREATER.HOSTEL MANAGER Work Phone: Start: 12-11-2020 Mammography Lorena crespo ACID TREATER.HOSTEL MANAGER Work Phone: Start: 11-07-2020 Adult depression scr eening assessment Lorena Claros ACID TREATER.HOSTEL MANAGER Work Phone: Start: 05-22-2020 Radiologic exam ches t 2 views Christiano Wooten MD Work Phone: Start: 08-28-2017 Mammography Mariam Iori o DO Work Phone: Start: 05-08-2013 Colonoscopy Mariam Iori o DO Work Phone: History of appendectomy S/P appendectomy Dr. Christiano Wooten MD Work Phone: Plan of Treatment Date Care Activity Detail Author Start: 06-22-2030 DTaP/Tdap/Td Vaccine s (2 - Td or Tdap) DTaP/Tdap/Td Vaccines (2 - Td or Tdap) [facility] Start: 06-22-2030 Tetanus vaccination Tetanus: Every 1 0yrs [facility] Start: 06-22-2030 Urine microalbumin profile [facility] Start: 09-30-2027 Lipid 1996 panel - S lorrie or Plasma Lipid Screening [facility] Start: 09-30-2027 Lipid panel Lipid Screening [facility] Start: 09-30-2027 LIPID SCREEN LIPID SCREEN [facility] Start: 04-10-2027 Diabetes Screening Diabetes Screenin g [facility] Start: 03-12-2027 Diabetes Screening Diabetes Screenin [facility] Start: 10-03-2026 [facility] Start: 04-30-2026 Screening for malign ant neoplasm of colon [facility] Start: 04-25-2026 Diabetes Screening Diabetes Screenin [facility] Start: 09-29-2025 DIABETES SCREEN DIABETES SCREEN [facility] Start: 09-29-2025 Diabetes Screening [facility] Start: 04-10-2025 Depression Screening Depression Scre ening [facility] Start: 03-12-2025 Screening for malign ant neoplasm of colon [facility] Start: 10-09-2024 End: 10-09-2024 ambulatory 10/09/2024 2:00 PM EDT Visit (SP) Office Hematology/Oncology [address] [place] [id number] Alea Langston APRN.PHARMACEUTICAL OFFICER [address] [place] [address] OV/MAMM 10/02* Hematology/Oncology Comment on above: OV/MAMM 10/02* Start: 10-02-2024 End: 10-02-2024 Patient encounter procedure 10/02/2024 2:40 PM EDT Appointment Mammogram [address] [place] [id number] Encounter for screening mammogram for high-risk patient [Z12.31] Mammogram Comment on above: Encounter for screen ing mammogram for high-risk patient [Z12.31] Start: 08-29-2024 End: 08-29-2024 ambulatory 08/29/2024 12:10 PM EDT Visit (SP) Office Hematology/Oncology [address] [place] [address] Michael Mackey DO [address] [place] [address] 2WK OV* Hematology/Oncology Comment on above: 2WK OV* Start: 08-07-2024 End: 08-07-2024 Follow-up encounter 08/07/2024 1:00 PM EDT [facility]iation Oncology [address] [place] [address] Liz Salomon MD [address] [place] [address] 4 week follow up Radiation Oncology Comment on above: 4 week follow up Start: 08-01-2024 Screening for malign ant neoplasm of breast Mammogram [facility] Start: 07-09-2024 End: 07-09-2024 ambulatory Hematology/Oncology Comment on above: MAMMO OV/MAMM 07/03* Start: 07-05-2024 End: 07-05-2024 Patient encounter procedure 07/05/2024 3:00 PM EDT Appointment Radiation Oncology [address] [place], [place] [phone] Location: [facility] Radiation Oncology Comment on above: Location: [facility] Start: 07-04-2024 End: 07-04-2024 Patient encounter procedure 07/04/2024 3:00 PM EDT Appointment Radiation Oncology [address] [place], [place] [id number] Location: [facility] Comment on above: Location: [facility] Start: 07-03-2024 End: 07-03-2024 Patient encounter procedure Mammogram Comment on above: Encounter for screen ing mammogram for high-risk patient [Z12.31]; Personal history of malignant neoplasm of breast [Z85.3] Location: [facility] Start: 07-02-2024 End: 07-02-2024 Patient encounter procedure Radiation Oncology Comment on above: Location: [facility] Location: [facility] M[facility] VIS[facility] Start: 07-02-2024 Screening for malign ant neoplasm of breast [facility] Start: 07-01-2024 End: 07-01-2024 Patient encounter procedure Radiation Oncology Comment on above: Boost starts today. verify e Boost starts today.1 5x Start: 06-28-2024 End: 06-28-2024 Patient encounter procedure 06/28/2024 3:00 PM EDT Appointment Radiation Oncology [address] [place] [address] Location: [facility] Comment on above: Location: [facility] Start: 06-27-2024 End: 06-27-2024 Patient encounter procedure 06/27/2024 3:00 PM EDT Appointment Radiation Oncology [address] [place], [place] [address] Location: [facility] Comment on above: Location: [facility] Start: 06-26-2024 End: 06-26-2024 Patient encounter procedure 06/26/2024 3:00 PM EDT Appointment Radiation Oncology [address] [place] [address] Location: [facility] Comment on above: Location: [facility] Start: 06-26-2024 End: 06-26-2024 ambulatory 06/26/2024 8:30 AM EDT Visit (SP) Office Hematology/Oncology [address] [place], [place] [address] Michael Mackey, DO [address] [place] [address] 2WK OV* Hematology/Oncology Comment on above: 2WK OV* Start: 06-25-2024 End: 06-25-2024 Patient encounter procedure Radiation Oncology Comment on above: Location: [facility] Location: [facility] MENT VISIT Start: 06-24-2024 End: 06-24-2024 Patient encounter procedure 06/24/2024 3:00 PM EDT Appointment Radiation Oncology [address] [place] [address] Location: [facility] Comment on above: Location: [facility] Start: 06-21-2024 End: 06-21-2024 Patient encounter procedure Radiation Oncology Comment on above: Location: [facility] Set up Boost? Start: 06-20-2024 End: 06-20-2024 Patient encounter procedure 06/20/2024 3:00 PM EDT Appointment Radiation Oncology [address] [place], [place] [id number] Location: [facility] On[facility] Comment on above: Location: [facility] Start: 06-19-2024 End: 06-19-2024 Patient encounter procedure Radiation Oncology Comment on above: Location: [facility] Start: 06-18-2024 End: 06-18-2024 Patient encounter procedure Radiation Oncology Comment on above: Location: [facility] Location: [facility]ON TREAT MENT VISIT 1145 tomorrow Start: 06-17-2024 End: 06-17-2024 Patient encounter procedure 06/17/2024 3:00 PM EDT Appointment Radiation Oncology [address] [place], [place] [id number] Location: [email or web address] Comment on above: Location: [facility] Start: 06-14-2024 End: 06-14-2024 Patient encounter procedure 06/14/2024 3:00 PM EDT Appointment Radiation Oncology [address] [place], [place] [address] Location: [email or web address] Comment on above: Location: [facility] Start: 06-13-2024 End: 06-13-2024 Patient encounter procedure 06/13/2024 3:00 PM EDT Appointment Radiation Oncology [address] [place], [place] [address] Location: [facility] Comment on above: Location: [facility] Start: 06-12-2024 End: 06-12-2024 Patient encounter procedure 06/12/2024 3:00 PM EDT Appointment Radiation Oncology [address] [place] [address] Location: [facility] Comment on above: Location: [facility] Start: 06-11-2024 End: 06-11-2024 Patient encounter procedure Radiation Oncology Comment on above: Location: [facility] Location: [facility] TREAT MENT VISIT Start: 06-10-2024 End: 06-10-2024 Patient encounter procedure 06/10/2024 3:00 PM EDT Appointment Radiation Oncology [address] [place] [address] Location: [email or web address] Comment on above: Location: [facility] Start: 06-07-2024 End: 06-07-2024 Patient encounter procedure 06/07/2024 3:00 PM EDT Appointment Radiation Oncology [address] [place] [address] Location: [facility] Comment on above: Location: [facility] Start: 06-06-2024 End: 06-06-2024 Patient encounter procedure 06/06/2024 3:00 PM EDT Appointment Radiation Oncology [address] [place] [address] Location: [facility] Comment on above: Location: [facility] Start: 06-05-2024 End: 06-05-2024 Patient encounter procedure 06/05/2024 3:00 PM EDT Appointment Radiation Oncology [address] [place] [address] Location: [facility] Comment on above: Location: [facility] Start: 06-04-2024 End: 06-04-2024 Patient encounter procedure Radiation Oncology Comment on above: Location: [facility] Location: W[facility]ON TREAT MENT VISIT Start: 06-03-2024 End: 06-03-2024 Patient encounter procedure 06/03/2024 3:00 PM EDT Appointment Radiation Oncology [address] [place] [address] Location: [email or web address] Comment on above: Location: [facility] Start: 06-02-2024 Covid-19 Vaccine ( season) Covid-19 Vaccine ( season) [facility] Start: 05-31-2024 End: 05-31-2024 Patient encounter procedure 05/31/2024 3:00 PM EDT Appointment Radiation Oncology [address] [place] [address] Location: [facility] Comment on above: Location: [facility] Start: 05-30-2024 End: 05-30-2024 Patient encounter procedure 05/30/2024 3:00 PM EDT Appointment Radiation Oncology [address] [place] [address] Location: [facility] Comment on above: Location: [facility] Start: 05-29-2024 End: 05-29-2024 Patient encounter procedure 05/29/2024 3:00 PM EDT Appointment Radiation Oncology [address] [place] [id number] Location: [facility] On[facility] Comment on above: Location: [facility] Start: 05-28-2024 End: 05-28-2024 Patient encounter procedure Radiation Oncology Comment on above: Location: [facility] Location: W[facility]ON TREAT MENT VISIT Start: 05-27-2024 End: 05-27-2024 Patient encounter procedure Radiation Oncology Comment on above: Location: [facility] 15x Start: 05-20-2024 End: 05-20-2024 Patient encounter procedure 05/20/2024 11:30 AM EDT Office Visit Radiation Oncology [address] [place], [place] [phone] Liz Salomon MD [address] [place] [address] Rt Chest Wall /SC Radiation Oncology Comment on above: Rt Chest Wall /SC Start: 05-20-2024 End: 05-20-2024 Nursing evaluation of patient and report 05/20/2024 11:00 AM EDT Nurse Visit Radiation Oncology [address] [place], [place] [phone] Wstr, Nurse Radt [facility] [address] [place] [address] Location: [facility] Radiation Oncology Comment on above: Location: [facility] Start: 05-08-2024 End: 05-08-2024 Patient encounter procedure 05/08/2024 2:45 PM EDT Office Visit General Surgery [address] [place], [place] [phone] Mainor Ayala MD [address] [place] [address] Lymphocytic colitis [K52.832] General Surgery Comment on above: Lymphocytic colitis [K52.832] Start: 05-03-2024 End: 05-03-2024 Patient encounter procedure 05/03/2024 9:15 AM EDT Office Visit [facility] [address] [place] [phone] Radha Terry MD [address] [place] [address] [facility] Start: 05-01-2024 End: 05-01-2024 ambulatory Hematology/Oncology Comment on above: 05/01 at 3 pm. Block the entire hour slot for established complex. 2WK OV* Start: 05-01-2024 End: 05-01-2024 Patient encounter procedure 05/01/2024 1:30 PM EDT Office Visit Radiation Oncology [address] [place], [place] [address] Liz Salomon MD [address] [place] [phone] Dr. Salomon same day if able for opinion on radiation to right axilla for right breast cancer recurrence Radiation Oncology Comment on above: Dr. Salomon same day if able for opinion on radiation to right axilla for right breast cancer recurrence Start: 04-26-2024 End: 04-26-2024 Patient encounter procedure 04/26/2024 9:00 AM EDT Appointment [facility] [address] [place] [phone] Radha Terry MD [address] [place], [place] [phone] [facility] Start: 04-24-2024 End: 04-24-2024 Patient encounter procedure 04/24/2024 8:30 AM EDT Appointment [facility] [address] [place] [phone] Radha Terry MD [address] [place], [place] [phone] [facility] Start: 04-22-2024 End: 04-22-2024 Patient encounter procedure [facility] Start: 04-22-2024 Subsequent hospital visit by physician 04/22/2024 2:45 PM EDT Hospital Encounter [facility] [address] [place] [address] Radha Terry MD [address] [place], [place] [id number] [facility] Start: 04-19-2024 End: 04-19-2024 Patient encounter procedure 04/19/2024 9:00 AM EST Appointment [facility] [address] [place] [phone] Radha Terry MD [address] [id number] [facility] Start: 04-17-2024 End: 04-17-2024 Patient encounter procedure [facility] Start: 04-16-2024 End: 04-16-2024 ambulatory 04/16/2024 4:00 PM EST Visit (SP) Office Hematology/Oncology [address] [place] [phone] Michael Mackey DO [address] [place] [phone] OV/PER TE 04/05* Hematology/Oncology Comment on above: OV/PER TE 04/05* Start: 04-10-2024 End: 04-10-2025 CT Abdomen and Pelvis WO and W contrast IV CT chest abdomen pelvis with contrast Imaging Routine Recurrent breast cancer, right (HCC) Expected: 04/10/2024 (Approximate), Expires: 04/10/2025 [facility] Work Phone: Comment on above: Expected: 04/10/2024 (Approximate), Expires: 04/10/2025 Start: 04-10-2024 End: 04-10-2025 CT Neck W contrast IV CT soft tissue neck w IV contrast Imaging Routine Recurrent breast cancer, right (HCC) LAD (lymphadenopathy) of left cervical region Expected: 04/10/2024 (Approximate), Expires: 04/10/2025 [employer] [facility] Comment on above: Expected: 04/10/2024 (Approximate), Expires: 04/10/2025 Start: 04-10-2024 End: 06-08-2025 MR Breast - bilateral WO and W contrast IV Bilateral breast MR with and without contrast Imaging Routine Recurrent breast cancer, right (HCC) Expected: 04/10/2024 (Approximate), Expires: 06/08/2025 [facility] Comment on above: Expected: 04/10/2024 (Approximate), Expires: 06/08/2025 Start: 04-10-2024 End: 04-10-2025 NM Whole body Bone Views NM bone whole body Imaging Routine Recurrent breast cancer, right (HCC) Expected: 04/10/2024 (Approximate), Expires: 04/10/2025 [facility] Comment on above: Expected: 04/10/2024 (Approximate), Expires: 04/10/2025 Start: 04-10-2024 End: 04-10-2025 XR Chest 2 Views [facility] Comment on above: Expected: 04/10/2024 (Approximate), Expires: 04/10/2025 Start: 04-02-2024 End: 04-02-2024 OT/PT/Speech Visit 04/02/2024 2:15 PM EST OT/PT/Speech Visit [facility] [address] [place] [address] Jonas Ambrosio, PT [address] [facility] [address] cervical disc disorder with radiculpathy (M50.10) Spinal stenosis lumbar (M48.061) [facility] Comment on above: cervical disc disord er with radiculpathy (M50.10) Spinal stenosis lumbar (M48.061) Start: 03-22-2024 End: 03-22-2024 OT/PT/Speech Visit 03/22/2024 2:15 PM EST OT/PT/Speech Visit [facility] [address] [place], [place] [address] Jonas Ambrosio, PT [address] [place] [address] cervical disc disorder with radiculpathy (M50.10) Spinal stenosis lumbar (M48.061) [facility] Comment on above: cervical disc disord er with radiculpathy (M50.10) Spinal stenosis lumbar (M48.061) Start: 03-21-2024 End: 03-21-2024 Patient encounter procedure 03/21/2024 3:30 PM EST Office Visit General Surgery [address] [place] [address] Mainor Ayala MD [address] [place] [address] Chronic diarrhea [K52.9] General Surgery Comment on above: Chronic diarrhea [K5 2.9] Start: 03-15-2024 End: 03-15-2024 OT/PT/Speech Visit 03/15/2024 2:00 PM EST OT/PT/Speech Visit [facility] [address] [place] [address] Evelyn Pastor, JUSTUS [address] [place] [address] cervical disc disorder with radiculpathy (M50.10) Spinal stenosis lumbar (M48.061) [facility] Comment on above: cervical disc disord er with radiculpathy (M50.10) Spinal stenosis lumbar (M48.061) Start: 03-12-2024 End: 06-11-2024 Calprotectin [Mass/mass] in Stool CALPROTECTIN,FECAL Lab Routine Chronic diarrhea Expected: 03/12/2024 (Approximate), Expires: 06/11/2024 [facility] Comment on above: Expected: 03/12/2024 (Approximate), Expires: 06/11/2024 Start: 03-12-2024 End: 06-11-2024 CELIAC SCREEN WITH REFLEX [facility] Comment on above: Expected: 03/12/2024 , Expires: 06/11/2024 Start: 03-12-2024 End: 06-11-2024 Clostridioides difficile toxin genes [Presence] in Stool by FELY with probe detection CLOSTRIDIUM DIFFICILE TOXIN BY PCR Lab Routine Chronic diarrhea Expected: 03/12/2024 (Approximate), Expires: 06/11/2024 [facility] Work Phone: Comment on above: Expected: 03/12/2024 (Approximate), Expires: 06/11/2024 Start: 03-12-2024 End: 06-11-2024 Giardia lamblia+Cryptosporidium sp Ag [Presence] in Stool by Immunoassay CRYPTOSPORIDIUM AND GIARDIA ANTIGENS BY EIA Microbiology Routine Chronic diarrhea Expected: 03/12/2024 (Approximate), Expires: 06/11/2024 [facility] Comment on above: Expected: 03/12/2024 (Approximate), Expires: 06/11/2024 Start: 03-12-2024 End: 06-11-2024 Hemoglobin.gastrointesti nal.lower [Presence] in Stool by Immunoassay IMMUNOCHEMICAL FECAL OCCULT BLOOD TEST Lab Routine Chronic diarrhea Expected: 03/12/2024 (Approximate), Expires: 06/11/2024 [facility] Comment on above: Expected: 03/12/2024 (Approximate), Expires: 06/11/2024 Start: 03-12-2024 End: 06-11-2024 Thyrotropin [Units/volume] in Serum or Plasma [facility] Comment on above: Expected: 03/12/2024 , Expires: 06/11/2024 Start: 03-12-2024 End: 06-11-2024 Thyroxine (T4) free [Mass/volume] in Serum or Plasma [facility] Comment on above: Expected: 03/12/2024 , Expires: 06/11/2024 Start: 03-08-2024 End: 03-08-2024 OT/PT/Speech Visit 03/08/2024 2:00 PM EST OT/PT/Speech Visit [facility] [address] [place] [address] Evelyn Pastor, CREW DIRECTOR [address] [place] [address] cervical disc disorder with radiculpathy (M50.10) Spinal stenosis lumbar (M48.061) [facility] Comment on above: cervical disc disord er with radiculpathy (M50.10) Spinal stenosis lumbar (M48.061) Start: 02-29-2024 End: 02-29-2024 OT/PT/Speech Visit 02/29/2024 2:00 PM EST OT/PT/Speech Visit [facility] [address] [place] [address] Jonas Ambrosio, PT [address] [place], [place] [id number] Cervical Disc Disorder with Radiculopathy Spine stenosis lumbar (M48.061) [facility] Comment on above: Cervical Disc Disord er with Radiculopathy Spine stenosis lumbar (M48.061) Start: 02-14-2024 Advance Directive Discussion Advance Directive Discussion [facility] Start: 02-13-2024 Behavioral Health Screening Behavioral Health Screening [facility] Comment on above: Postponed from 02/13 (Declined at this time) Start: 02-13-2024 Depression Assessment Depression Ass essment [facility] Comment on above: Postponed from 02/13 (Declined at this time) Start: 10-25-2023 End: 10-25-2023 Patient encounter procedure 10/25/2023 11:40 AM EDT Office Visit Internal Medicine [facility] [address] [place] [address] Cheryl Fisher, ACID TREATER.PHARMACEUTICAL OFFICER [address] [place] [address] Follow up Internal Medicine [facility] Comment on above: Follow up Start: 10-19-2023 End: 10-19-2023 Patient encounter procedure 10/19/2023 3:45 PM EDT Appointment [facility] [address] [place] [address] Numbness and tingling of left lower extremity [R20.0, R20.2] [facility] Comment on above: Numbness and tinglin g of left lower extremity [R20.0, R20.2] Start: 10-15-2023 Covid-19 Vaccine ( season) Covid-19 Vaccine ( season) [facility] Start: 10-15-2023 Covid-19 Vaccine ( season) Covid-19 Vaccine () [facility] Start: 10-15-2023 Influenza vaccination Influenza Vacc ine (#1) [facility] Start: 10-14-2023 Advance Directive Discussion Advance Directive Discussion [facility] Start: 10-09-2023 End: 10-09-2023 ambulatory 10/09/2023 2:45 PM EDT OT/PT/Speech Visit [facility] [address] [place] [address] Jonas Ambrosio, PT [address] [place] [address] Acute left-sided low back pain with left-sided sciatica [facility] Comment on above: Acute left-sided low back pain with left-sided sciatica Start: 10-04-2023 End: 10-04-2023 Patient encounter procedure 10/04/2023 3:20 PM EDT Office Visit Internal Medicine [facility] [address] [place] [address] Cheryl Fisher, ACID TREATER.PHARMACEUTICAL OFFICER [address] [place] [address] FU left leg & hip pain Internal [facility] [place] Comment on above: FU left leg & hip pa in Start: 10-04-2023 End: 01-03-2024 C reactive protein [Mass/volume] in Serum or Plasma [facility] Comment on above: Expected: 10/04/2023 , Expires: 01/03/2024 Start: 10-04-2023 End: 01-03-2024 CBC panel - Blood by Automated count [facility] Work Phone: Comment on above: Expected: 10/04/2023 , Expires: 01/03/2024 Start: 10-04-2023 End: 01-03-2024 Comprehensive metabolic 2000 panel - Serum or Plasma [facility] Comment on above: Expected: 10/04/2023 , Expires: 01/03/2024 Start: 10-04-2023 End: 01-03-2024 Erythrocyte sedimentation rate [facility] Comment on above: Expected: 10/04/2023 , Expires: 01/03/2024 Start: 10-04-2023 End: 01-03-2024 Hemoglobin.gastrointesti nal.lower [Presence] in Stool by Immunoassay IMMUNOCHEMICAL FECAL OCCULT BLOOD TEST Lab Routine Diarrhea, unspecified type Expected: 10/04/2023 (Approximate), Expires: 01/03/2024 [facility] Comment on above: Expected: 10/04/2023 (Approximate), Expires: 01/03/2024 Start: 10-04-2023 End: 01-03-2024 Urinalysis complete panel - Urine [facility] Comment on above: Expected: 10/04/2023 , Expires: 01/03/2024 Start: 10-03-2023 End: 10-03-2023 ambulatory 10/03/2023 2:45 PM EDT OT/PT/Speech Visit [facility] [address] [place], [place] [id number] Evelyn Pastor, CREW DIRECTOR [address] [place] [address] Acute left-sided low back pain with left-sided sciatica [facility] Comment on above: Acute left-sided low back pain with left-sided sciatica Start: 09-29-2023 End: 09-29-2023 ambulatory 09/29/2023 9:30 AM EDT OT/PT/Speech Visit [facility] [address] [place] [address] Evelny Pastor, CREW DIRECTOR [address] [place] [address] Acute left-sided low back pain with left-sided sciatica [facility] Comment on above: Acute left-sided low back pain with left-sided sciatica Start: 09-22-2023 End: 09-22-2023 ambulatory 09/22/2023 8:45 AM EDT OT/PT/Speech Visit [facility] [address] [place] [address] Jonas Ambrosio, PT [address] [place] [address] Acute left-sided low back pain with left-sided sciatica [facility] Comment on above: Acute left-sided low back pain with left-sided sciatica Start: 09-12-2023 End: 09-12-2023 Follow-up encounter 09/12/2023 4:30 PM EDT OT/PT/Speech Visit [facility] [address] [place] [address] Jonas Ambrosio, PT [address] [place] [address] UC follow up [facility] Comment on above: UC follow up Start: 08-02-2023 End: 08-02-2023 Patient encounter procedure Mammogram Comment on above: Personal history of breast cancer [Z85.3]; Axillary pain, right [M79.621]; Breast skin changes [R23.4] Start: 07-11-2023 End: 07-11-2023 ambulatory 07/11/2023 9:30 AM EDT Visit (SP) Office Hematology/Oncology [address] [place] [address] Alea Langston APRN.PHARMACEUTICAL OFFICER [address] [place] [address] OV/pain in her armpit, Feels like theres worms in there, can't lay on that side now, numbness and tingling-see phone note 07/05/23* Hematology/Oncology Comment on above: OV/pain in her armpi t, Feels like theres worms in there, can't lay on that side now, numbness and tingling-see phone note 07/05/23* Start: 05-29-2023 DIABETES SCREEN DIABETES SCREEN [facility] Start: 05-09-2023 Screening for malign ant neoplasm of colon [facility] Start: 02-13-2023 Depression Assessment Depression Ass [facility] Start: 11-19-2022 Mammography [facility] Start: 11-19-2022 Screening for malign ant neoplasm of breast Mammogram Screening [facility] Start: 10-14-2022 Covid-19 Vaccine ( season) Covid-19 Vaccine () [facility] Start: 10-14-[address] [facility] Start: 09-29-2022 End: 11-29-2022 Comprehensive metabolic 2000 panel - Serum or Plasma [facility] Work Phone: Comment on above: Expected: 09/29/2022 , Expires: 11/29/2022 Start: 09-29-2022 End: 11-29-2022 LIPID PANEL, NONFASTING [facility] Work Phone: Comment on above: Expected: 09/29/2022 , Expires: 11/29/2022 Start: 05-30-2022 Blood chemistry [facility] Start: 05-30-2022 [facility] Start: 02-13-2022 DEPRESSION ASSESSMENT DEPRESSION ASS ESSMENT [facility] Start: 12-11-2021 Mammography MAMMOGRAM [facility] Start: 11-07-2021 Adult depression screening assessment DEPRESSION SCREENING [facility] Start: 10-14-2021 Influenza vaccination INFLUENZA (#1) [facility] Start: 08-20-2021 COVID-19 VACCINE (5 - Booster for Moderna series) COVID-19 VACCINE (5 - Booster for Moderna series) [facility] Start: 06-22-2021 ONE PNEUMOVAX PRIOR TO AGE 65 ONE PNEUMOVAX PRIOR TO AGE 63 [facility] Comment on above: Postponed from 10/13 (Declined at this time) Start: 05-22-2021 COLORECTAL CANCER SCREENING COLORECTAL CANCER SCREENING [facility] Start: 05-22-2021 FECAL OCCULT BLOOD FECAL OCCULT BLOO D [facility] Start: 05-22-2021 Screening for malign ant neoplasm of colon [facility] Start: 04-28-2021 COVID-19 VACCINE (4 - Booster for Moderna series) COVID-19 VACCINE (4 - Booster for Moderna series) [facility] Start: 02-13-2021 DEPRESSION ASSESSMENT DEPRESSION ASS ESSMENT [facility] Start: 12-21-2020 SHINGRIX VACCINE (2 of 2) SHINGRIX VACCINE (2 of 2) [facility] Start: 11-07-2019 PAP TESTING PAP TESTING [facility] Start: 10-24-2019 PNEUMOCOCCAL (2 - PP SV23 or PCV20) PNEUMOCOCCAL (2 - PPSV23 or PCV20) [facility] Start: 2018 RSV Vaccine (1 - 1-d ose 60+ series) RSV Vaccine (1 - 1-dose 60+ series) [facility] Start: 08-28-2018 Screening mammography Mammogram [facility] Start: 05-08-2014 Colonoscopy COLONOSCOPY [facility] Start: 05-08-2014 Screening for malign ant neoplasm of colon Colonoscopy [facility] Start: 2008 Administration of he rpes zoster vaccine Zoster Vaccines (1 of 2) [facility] Start: 2008 Screening for malign ant neoplasm of colon [facility] Start: 10-14-2003 COLOGUARD (FIT-DNA) COLOGUARD (FIT-D NA) [facility] Start: 10-14-[address] COLONOGRAPHY [facility] Start: 10-14-2003 LIPID SCREEN LIPID SCREEN [facility] Start: 10-14-2003 Screening for malign ant neoplasm of colon [facility] Start: 10-14-2003 SIGMOIDOSCOPY SIGMOIDOSCOPY [facility] Start: 1988 HPV TESTING HPV TESTING [facility] Start: 1976 Anxiety Screening Anxiety Screening [facility] Start: 1976 Depression Screening Depression Scre asad [facility] Start: 1976 Hepatitis C screening Hepatitis C Sc keri [facility] Start: 1973 HIV screening HIV Screening [facility] Start: 1970 Depression screening using PHQ-9 (Patient Health Questionnaire 9) score [facility] Start: 1961 History and physical examination, annual for health maintenance Wellness Visit [facility] Start: 10-14-1959 MMR Vaccines (1 of 1 - Standard series) MMR Vaccines (1 of 1 - Standard series) [facility] Start: 1958 Annual wellness visit Medicare Initial Physical (IPPE) [facility] Start: 1958 Screening for malign ant neoplasm of cervix Pap Smear [facility] Start: 1958 Screening for malign ant neoplasm of colon [facility] Bacteria identified in Urine by Culture Urine Culture [facility] Bacteria identified in Urine by Culture URINE CULTURE Microbiology Routine Left low back pain, unspecified chronicity, unspecified whether sciatica present 10/25/2023 12:20 PM EDT [facility] C reactive protein [Mass/volume] in Serum or Plasma [facility] CBC W Auto Different ial panel - Blood [facility] Celiac disease screen [facility] Clostridioides diffi cile DNA [Presence] in Unspecified specimen by FELY with probe detection [facility] COLOGUARD COLOGUARD Lab [facility] Colon cancer screening Ordered: 04/26/2023 [facility] Work Phone: Comment on above: Ordered: 04/26/2023 Comprehensive metabo lic 2000 panel - Serum or Plasma [facility] End: 04-22-2024 CT Abdomen and Pelvis WO and W contrast IV [facility] Work Phone: Comment on above: Once for 1 Occurrenc es starting 04/22/2024 until 04/22/2024 CT Guidance for radiation treatment of Unspecified body region CT SIM PLANNING RADIATION ONCOLOGY Radiology Routine 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) Ordered: 05/16/2024 [facility] Work Phone: Comment on above: Ordered: 05/16/2024 End: 04-22-2024 CT Neck W contrast IV [facility] [employer] Work Phone: Comment on above: Once for 1 Occurrenc es starting 04/22/2024 until 04/22/2024 Cytoplasmic ANCA Screen [facility] DBT Breast - bilater al screening JANE SCREENING W [facility] Radiology Routine Encounter for screening mammogram for malignant neoplasm of breast 07/03/2023 2:36 PM EDT [facility] Work Phone: End: 06-26-2025 DBT Breast - bilateral screening JANE SCREENING [facility] Radiology Routine Encounter for screening mammogram for high-risk patient 1 Occurrences starting 05/27/2024 until 06/26/2025 [facility] Work Phone: Comment on above: 1 Occurrences starti ng 05/27/2024 until 06/26/2025 Elastase.pancreatic [Presence] in Stool [facility] End: 10-24-2024 EMG(NEURO/NI) EMG(NEURO/NI) EMG Routine Left low back pain, unspecified chronicity, unspecified whether sciatica present Left leg pain Numbness and tingling of left lower extremity 1 Occurrences starting 10/25/2023 until 10/24/2024 [facility] Work Phone: Comment on above: 1 Occurrences starti ng 10/25/2023 until 10/24/2024 EXTRA ECOFIX CONTAIN ER PERFORMABLE EXTRA ECOFIX CONTAINER PERFORMABLE Lab Routine Chronic diarrhea 03/21/2024 6:15 PM EST [facility] Giardia lamblia Ag [Presence] in Stool by Immunoassay [facility] Hemoglobin.gastroint nikia nal.lower [Presence] in Stool by Immunoassay FECAL OCCULT BLOOD TEST Lab Routine Colon cancer screening Ordered: 05/31/2021 [facility] Work Phone: Comment on above: Ordered: 05/31/2021 Immunoglobulin measurement [facility] LAB EXTRA TUBES LAB EXTRA TUBES Lab Routine Chronic diarrhea 03/21/2024 6:15 PM EST [facility] Work Phone: End: 09-24-2022 LUNG VOLUMES LUNG VOLUMES PFT Routine Wheezing 1 Occurrences starting 08/25/2021 until 09/24/2022 [facility] Work Phone: Comment on above: 1 Occurrences starti ng 08/25/2021 until 09/24/2022 End: 11-19-2021 JANE SCREENING W QU[facility] Work Phone: Comment on above: 1 Occurrences starti ng 11/19/2021 until 11/19/2021 End: 10-29-2023 JANE SCREENING W [facility] JANE SCREENING [facility] Radiology Routine Encounter for screening mammogram for malignant neoplasm of breast 1 Occurrences starting 09/29/2022 until 10/29/2023 [facility] Work Phone: Comment on above: 1 Occurrences starti ng 09/29/2022 until 10/29/2023 End: 08-09-2024 MG Breast - right Diagnostic for implant JANE DIAGNOSTIC RIGHT Radiology Routine Personal history of breast cancer Axillary pain, right Breast skin changes 1 Occurrences starting 07/11/2023 until 08/09/2024 [facility] Work Phone: Comment on above: 1 Occurrences starti ng 07/11/2023 until 08/09/2024 End: 11-02-2024 MR Lumbar spine WO contrast MRI LUMBAR SPINE WO IVCON Radiology Routine Numbness and tingling of left lower extremity Weakness of left lower extremity History of breast cancer Radiculopathy of lumbar region 1 Occurrences starting 10/04/2023 until 11/02/2024 [facility] Comment on above: 1 Occurrences starti ng 10/04/2023 until 11/02/2024 MR Lumbar spine WO contrast MRI LUMBAR SPINE WO IVCON Radiology Routine Numbness and tingling of left lower extremity Weakness of left lower extremity History of breast cancer Radiculopathy of lumbar region 10/19/2023 3:50 PM EDT [facility] Work Phone: End: 06-26-2020 MRI of lumbar spine without contrast MR Lumbar Spine Without Contrast Imaging Routine Sprain of lumbar region Once for 1 Occurrences starting 06/26/2020 until 06/26/2020 [facility] Comment on above: Once for 1 Occurrenc es starting 06/26/2020 until 06/26/2020 MRI of lumbar spine without contrast MR Lumbar Spine Without Contrast Imaging Routine Sprain of lumbar region 06/26/2020 2:22 PM EDT [facility] Nucleic acid assay [facility] Work Phone: Patient referral [facility] Work Phone: Protein measurement [facility] End: 10-03-2022 Radiologic exam swallow function contrast study XR MODIFIED BARIUM SWALLOW W SPEECH THERAPY Radiology Routine Choking, sequela 1 Occurrences starting 09/02/2021 until 10/03/2022 [facility] Work Phone: Comment on above: 1 Occurrences starti ng 09/02/2021 until 10/03/2022 End: 09-24-2022 SPIROMETRY - BASELINE AND POST DILATOR SPIROMETRY - BASELINE AND POST DILATOR PFT Routine Wheezing 1 Occurrences starting 08/25/2021 until 09/24/2022 [facility] Work Phone: Comment on above: 1 Occurrences starti ng 08/25/2021 until 09/24/2022 SPIROMETRY - BASELIN E AND POST DILATOR SPIROMETRY - BASELINE AND POST DILATOR PFT Routine Wheezing 09/07/2021 2:36 PM EDT [facility] Work Phone: Tissue exam [employer] Work Phone: Comment on above: Release Upon Orderin g for 1 Occurrences starting 04/02/2024, 1 completed End: 08-09-2024 US Breast - right limited US BREAST LTD RIGHT Radiology Routine Personal history of breast cancer Axillary pain, right Breast skin changes 1 Occurrences starting 07/11/2023 until 08/09/2024 [facility] Comment on above: 1 Occurrences starti ng 07/11/2023 until 08/09/2024 End: 10-29-2023 Us pelvic nonobstetric image dcmtn limited/f/u US FEMALE PELVIS TRANSABD LTD Radiology Routine Urinary hesitancy Pelvic pain in female 1 Occurrences starting 09/29/2022 until 10/29/2023 [facility] Work Phone: Comment on above: 1 Occurrences starti ng 09/29/2022 until 10/29/2023 End: 11-02-2023 Us transvaginal US FEMALE PELVIS TRANSVAG Radiology Routine Urinary hesitancy Pelvic pain in female 1 Occurrences starting 10/03/2022 until 11/02/2023 [facility] Work Phone: Comment on above: 1 Occurrences starti ng 10/03/2022 until 11/02/2023 Us transvaginal US FEMALE PELVIS TRANSVAG Radiology Routine Urinary hesitancy Pelvic pain in female 10/03/2022 1:31 PM EDT [facility] Work Phone: End: 02-12-2023 XR CLAVICLE 2V LEFT XR CLAVICLE 2V LEFT Radiology Routine Personal history of breast cancer Pain of left clavicle 1 Occurrences starting 01/13/2022 until 02/12/2023 [facility] Work Phone: Comment on above: 1 Occurrences starti ng 01/13/2022 until 02/12/2023 [facility] Immunizations Immunization Date Immunization Notes Care Provider [facility] 12-27-2022 respiratory syncytia l virus (RSV) vaccine, adjuvanted (AREXVY) Cheryl Reddy ACID TREATER.PHARMACEUTICAL OFFICER Work Phone: [facility] 12-03-2022 influenza, injectabl e, quadrivalent, preservative free Cheryl Reddy ACID TREATER.PHARMACEUTICAL OFFICER Work Phone: [facility] 12-03-2022 influenza virus vaccine, unspecified formulation uRt Aceves ACID TREATER.PHARMACEUTICAL OFFICER Work Phone: [facility] 11-16-2021 influenza, injectabl e, quadrivalent, preservative free Cheryl Reddy ACID TREATER.PHARMACEUTICAL OFFICER Work Phone: [facility] 11-16-2021 influenza virus vaccine, unspecified formulation 1 Work Phone: [facility] 10-23-2021 influenza virus vaccine, unspecified formulation Cheryl Reddy ACID TREATER.PHARMACEUTICAL OFFICER Work Phone: [facility] 08-25-2021 pneumococcal (PCV20) vaccine, 20 valent (PREVNAR 20) Christiano Wooten MD Work Phone: [facility] Work Phone: 08-25-2021 pneumococcal Conjugate, unspecified formulation Christiano Wooten MD Work Phone: [facility] Work Phone: 01-05-2021 zoster vaccine recombinant Christiano Wooten MD Work Phone: [facility] Work Phone: 11-23-2020 influenza, injectabl e, quadrivalent, contains preservative Lorena Claros ACID TREATER.HOSTEL MANAGER Work Phone: [facility] Work Phone: 10-26-2020 zoster vaccine recombinant Lorena Claros ACID TREATER.HOSTEL MANAGER Work Phone: [facility] Work Phone: 06-22-2020 tetanus toxoid, reduced diphtheria toxoid, and acellular pertussis vaccine, adsorbed Lorena Claros ACID TREATER.HOSTEL MANAGER Work Phone: [facility] 05-21-2020 COVID-19 vaccine, fu ll dose (MODERNA) Lorena Claros ACID TREATER.HOSTEL MANAGER Work Phone: [facility] Work Phone: 04-24-2020 COVID-19 vaccine, fu ll dose (MODERNA) Lorena Claros ACID TREATER.HOSTEL MANAGER Work Phone: [facility] Work Phone: 10-28-2019 influenza, injectabl e, quadrivalent, preservative free Lorena Claros ACID TREATER.HOSTEL MANAGER Work Phone: [facility] Work Phone: 12-13-2018 influenza, injectabl e, quadrivalent, preservative free Lorena Claros ACID TREATER.HOSTEL MANAGER Work Phone: [facility] Work Phone: 10-23-2018 pneumococcal conjuga te vaccine, 13 valent Lorena Claros ACID TREATER.HOSTEL MANAGER Work Phone: [facility] Work Phone: 11-28-2017 influenza, injectabl e, quadrivalent, preservative free Lorena Claros ACID TREATER.HOSTEL MANAGER Work Phone: [facility] Work Phone: 11-17-2017 influenza virus vaccine, unspecified formulation Lorena Claros ACID TREATER.HOSTEL MANAGER Work Phone: [facility] Work Phone: 02-03-2014 influenza, injectabl e, quadrivalent, preservative free Lorena Claros ACID TREATER.HOSTEL MANAGER Work Phone: [facility] Payers Date Payer Category Payer Self-pay [id number] 2023 Commercial Managed [facility]ly [facility] [employer]REST [id number] 2023 Private Health Insurance [id number] 2023 Unknown [id number] 2022 Unknown MMO MMO SUPERMED PPO [id number] 2022-Present [phone] [address] [place] [address] PPO [id number] 2020 Worker's Compensation [employer] COMP MANAGEMENT [id number] 2020-Present [id number] 2020 Worker's Compensation [id number] Worker's Compensation [id number] 2018 Medicaid [id number] 2018 Medicaid [id number] 2018 Unknown [id number] 1958 Unknown [id number] 1958 Unknown [id number] .902 1958 Unknown [id number] [id number] .594 1958 Unknown [id number] .594 1958 Unknown [id number] [id number] .594 1958 Unknown [id number] .594 1958 Unknown [id number] .594 1958 Unknown [id number] .594 1958 Unknown [id number] .903 Medicaid [id number] Unknown [facility] [id number] Unknown [id number] Unknown [id number] Unknown [id number] .462 Unknown [id number] .462 Unknown [id number] .462 Unknown [id number] .462 Unknown [id number] Social History Date Type Detail Facility Start: 06-09-2020 End: 12-07-2020 Tobacco smoking status NHIS Current some day smoker [facility] Work Phone: Start: 06-09-2020 End: 03-12-2024 Tobacco use and exposure Never used [facility] Start: 06-09-2020 Alcohol intake Lifetime non-drinker (finding) [facility] Start: 06-09-2020 End: 05-31-2021 History SDOH Alcohol Frequency 1 [facility] Start: 1960 Sex Assigned At Not on file [facility] Start: 04-21-2020 End: 11-23-2021 Exposure to SARS-CoV-2 (event) Not sure [facility] Start: 02-13-1999 End: 08-31-2021 History of tobacco use Cigarette Smoker [facility] Work Phone: Start: 12-07-2020 End: 02-29-2024 Cigarettes smoked current (pack per day) - Reported 0.5 [facility] Start: 12-07-2020 End: 04-16-2024 Alcohol intake Ex-drinker (finding) [facility] Start: 05-31-2021 History SDOH Alcohol Frequency 2 [facility] Start: 05-31-2021 History SDOH Alcohol Std Drinks 98 [facility] Start: 05-21-2020 History SDOH Alcohol Comment once a month, 1 drink [facility] Start: 05-31-2021 History SDOH Social Connections Phone 5 [facility] Start: 05-31-2021 History SDOH Social Connections Get Together 4 [facility] Start: 11-23-2020 End: 11-02-2021 Tobacco Comment relapsed 10/2020 [facility] Start: 1960 Sex Assigned At Female [facility] Start: 07-08-2021 End: 05-30-2022 Tobacco smoking status NHIS Unknown if ever smoked [facility] Start: 11-02-2021 End: 08-12-2024 Tobacco smoking status NHIS Ex-smoker [facility] Start: 02-13-1999 End: 08-31-2021 History of tobacco use Current smoker [facility] Start: 05-31-2021 End: 02-29-2024 Social connection and isolation panel [facility] Do you belong to any clubs or organizations such as taoist groups, unions, fraternal or athletic groups, or school groups? No [facility] Are you now , , , , never or living with a partner? [facility] How often to you hav e a drink containing alcohol? Monthly or less [facility] How many standard dr inks containing alcohol do you have on a typical day? Patient refused [facility] How often do you hav e 6 or more drinks on 1 occasion? Never [facility] Do you feel stress - tense, restless, nervous, or anxious, or unable to sleep at night because your mind is troubled all the time - these days [OSQ] Only a little [facility] (I/We) worried wheth er (my/our) food would run out before (I/we) got money to buy more. DK or Refused [facility] Start: 05-14-2020 Gender identity Identifies as female gender (finding) [facility] Start: 05-14-2020 Sexual orientation Heterosexual (finding) [facility] Are you now , , , , never or living with a partner? Refused [facility] Start: 05-21-2020 Tobacco smoking status NHIS Smokes tobacco daily [facility] How many standard dr inks containing alcohol do you have on a typical day? 1 or 2 [facility] How hard is it for y ou to pay for the very basics like food, housing, medical care, and heating Somewhat hard [facility] Do you feel stress - tense, restless, nervous, or anxious, or unable to sleep at night because your mind is troubled all the time - these days [OSQ] To some extent [facility] Start: 05-21-2020 Tobacco Comment 3-4 cigs per day. Resumed 1 year ago. [facility] Start: 04-02-2024 End: 06-26-2024 Alcoholic beverage intake Current drinker of alcohol (finding) [facility] Start: 03-14-2024 Sex Female (finding) [facility] Medical Equipment Procedure Code Equipment Code Equipment Original Text Equipment Identifier Dates Appendectomy, laparoscopic Surgical staple loading unit, non-cutting [id number] [facility] Start: 01-02-2024 High Ticket Item - [id number]_[facility] Start: 10-12-2015 Imp Brst 375ml Styl 20 [facility] - [id number]_[facility] Start: 07-19-2012 Imp Brst 350ml Gel Rnd [facility] - [id number]_[facility] Start: 12-09-2013 Comment on above: Description: [place] smooth round moderate plus profile gel filled breast implant Implant Memoryge l 12.5cm P5cm High Profile Round Narrow Base Silicone - [id number]_[facility] Start: 10-12-2015 [place] Memorygel Breast Implant- Smooth Round High Profile Gel-Filled Breast Implant 400 Cc [id number]_[facility] Start: 04-02-2024 Functional Status Date Assessment Result Facility 09-18-2014 Are you deaf, or do you have serious difficulty hearing No 09/18/2014 10:46 AM Connie Cleary LPN No [facility] 09-18-2014 Are you blind, or do you have serious difficulty seeing, even when wearing glasses No 09/18/2014 10:46 AM Connie Cleary LPN No [facility] 09-18-2014 Do you have serious difficulty walking or climbing stairs No 09/18/2014 10:46 AM Connie Cleary LPN No [facility] 09-18-2014 Do you have difficul ty dressing or bathing No 09/18/2014 10:46 AM Connie Cleary LPN [facility] 09-18-2014 Because of a physica l, mental, or emotional condition, do you have difficulty doing errands alone such as visiting a physician's office or shopping No 09/18/2014 10:46 AM EDT Connie Alonso LPN No [facility] Mental Status Date Assessment Result Facility 05-30-2022 Cognitive function Awake;Alert;A ppropriate; Follows Commands [facility] Work Phone: 09-18-2014 Because of a physica l, mental, or emotional condition, do you have serious difficulty concentrating, remembering, or making decisions No 09/18/2014 10:46 AM EDT Connie Alonso LPN No [facility] Clinical Notes 01-11-2019 to 07-22-2024 Telephone Encounter - Tamiko Wilkinson LPN - 07/22/2024 2:25 PM EDTTelephone Encounter - Tamiko Wilkinson LPN - 07/22/2024 2:25 PM EDTTelephone Encounter - Michael Mackey DO - 07/15/2024 5:15 PM EDT Note Date & Type Note Facility 07-22-2024 Telephone encounter Note Patient stopped in today stating the wrong colestipol was ordered 07/15/2024. She brought in the original bottle and I verified all information. This is what works for her and she'd like this sent in. Tamiko Wilkinson LPN [facility] 07-22-2024 Miscellaneous Notes Patient stopped in today stating the wrong colestipol was ordered 07/15/2024. She brought in the original bottle and I verified all information. This is what works for her and she'd like this sent in. Tamiko Wilkinson LPN documented in this encounter [facility] 07-15-2024 Telephone encounter Note The following approved medication requests have been transmitted electronically. Requested Prescriptions Signed Prescriptions Disp Refills Colestipol HCl 5 gram granules 180 packet 3 Sig: Take 5 g by mouth two times a day. Authorizing Provider: MICHAEL MACKEY DO [facility] 07-15-2024 Miscellaneous Notes The following approved medication requests have been transmitted electronically. Requested Prescriptions Signed Prescriptions Disp Refills Colestipol HCl 5 gram granules 180 packet 3 Sig: Take 5 g by mouth two times a day. Authorizing Provider: MICHAEL MACKEY DO She does not want to restart the Questran, she was not getting relief. wants to restart the colestipol worked with no issues and does not have to take as much. Connie Alonso LPN Left detailed message on identified voicemail , Dr. Mackey agrees with starting the Questran before starting the Aromasin. Not sure if she has any on hand . Contact office if she needs rx. Diane Garza LPN Yes, I think that is worth trying. Michael Mackey DO Pt having c/o diarrhea starting on 06/29/24 and it hasn't stopped. She states she hasn't tried any imodium because of her heart issue.She concerned about starting exemestane as she has had diarrhea in the past causing incontinence. She is wondering if she should go back on cholestryamine before starting the exemestane as she had positive results utilizing the cholestryamine. Please advise documented in this encounter [facility] 07-12-2024 Telephone encounter Note She does not want to restart the Questran, she was not getting relief. wants to restart the colestipol worked with no issues and does not have to take as much. Connie Alonso LPN [facility] 07-11-2024 Telephone encounter Note Left detailed message on identified voicemail , Dr. Mackey agrees with starting the Questran before starting the Aromasin. Not sure if she has any on hand . Contact office if she needs rx. Diane Garza LPN [facility] 07-11-2024 Telephone encounter Note Yes, I think that is worth trying. Michael Mackey DO [facility] 07-10-2024 Note [facility] 07-10-2024 History of Present illness Narrative Written discharge instructions given and reviewed with patient. Patient verbalizes understanding. Encouraged to call with any questions or concerns. Instruction for follow up appointment given by Dr. Salomon. documented in this encounter [facility] 07-10-2024 Note [facility] 07-10-2024 History of Present illness Narrative Radiation Oncology - On Treatment Review (OTR) Note PATIENT NAME: Shakira Franklin PATIENT DIAGNOSIS: Regional recurrence of right breast cancer s/p right axillary excision on 04/02/24. It was ER positive (91-100%, strong), SC positive (71-80%, strong) and Her2 negative. 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 1/6 node positive with extranodal extension. COURSE: adjuvant AREA TREATED: Right chest wall/IM/SC/axilla CURRENT DOSE: 6000 cGy in 30 fx PLANNED DOSE: 6000 cGy in 30 fx Status: Post-menopausal SUBJECTIVE: She has moderate pain in the right axilla. EXAM: KPS: 90 General Appearance: Alert and oriented. No acute distress. Radiation dermatitis: Moderate. Small area of desquamation in the right axilla. IMAGING/LAB RESULTS: None Treatment chart checked: Yes Patient treatment site reviewed and verified:Yes Port films reviewed and current:Yes Medications started: Silvadene cream. Ibuprofen as needed. ASSESSMENT/PLAN: Clinically stable. Toxicity within expected parameters. She finished radiation treatment as planned today. Four week follow-up with me. Liz Salomon MD Radiation Therapy - Nursing Note (OTV) PATIENT NAME: Shakira Franklin PATIENT July 10, 2024 [facility] FACILITY/LOCATION: [place] NURSING NOTE TYPE: BREAST Subjective Data I started having diarrhea on 06/29/24 and it hasn't stopped. I don't know if I should start my chemo pills. I haven't tried any imodium because of my heart issue. Should I go back on the cholestryamine? That does help. Additional Data Do you want to see a Sole Stainer? No Status: Post-menopausal. Stress Scale: On a scale of 0 to 10, what number best describes how much distress you have experienced in the past week?(0 being no distress and 10 being extreme distress) 6 Social work notified: Pt denied need to see social media content specialist at this time. Nursing Assessment Fatigue: moderate; causing difficulty performing some activities Appetite: good Nutritional Intake: Regular oral intake. Weight Gain/Loss: Not applicable Ambulatory weight history: Last 6 Encounter Wt Readings: Date: Wt: 06/26/2024 73.3 kg (161 lb 8 oz) 06/11/2024 72.3 kg (159 lb 6.3 oz) 05/08/2024 69.4 kg (153 lb) 05/01/2024 69.4 kg (153 lb) 04/16/2024 70.5 kg (155 lb 6.8 oz) 04/16/2024 71 kg (156 lb 8 oz) Nausea:None Vomiting: None Bowel Function: diarrhea 4 - 9 or more soft or liquid bowel movements per day Erythema/Hyperpigmentation:mild Desquamation:dry desquamation Rash:none Skin Care: Aquaphor Skin Sensation: mild itching Focused Assessment BREAST: Not applicable. SIGNED by: Samantha Jacinto RN documented in this encounter [facility] 07-10-2024 Telephone encounter Note Pt having c/o diarrhea starting on 06/29/24 and it hasn't stopped. She states she hasn't tried any imodium because of her heart issue.She concerned about starting exemestane as she has had diarrhea in the past causing incontinence. She is wondering if she should go back on cholestryamine before starting the exemestane as she had positive results utilizing the cholestryamine. Please advise [facility] 07-10-2024 Note [facility] 07-10-2024 History of Present illness Narrative SHAKIRA FRANKLIN [id number] : 1960 07/10/2024 [facility] Department of Radiation Oncology RADIATION ONCOLOGY - COMPLETION NOTE DATE OF SIMULATION: 05/20/24 DATES OF TREATMENT: 05/27/24 - 07/10/24 UNIT: W_[facility] AREA TREATED: Right chest wall/IM/SC/axilla DISEASE: Regional recurrence of right breast cancer s/p right axillary excision on 04/02/24. It was ER positive (91-100%, strong), SC positive (71-80%, strong) and Her2 negative. 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 1/6 node positive with extranodal extension DELIVERED DOSE: 6000 cGy in 30 fractions. (5000 cGy in 25 fractions treating to the 100% isodose line with 15,10 MV and 4 segmented funk followed by 1000 cGy in 5 fractions boost to the tumor bed in the right axilla treating to the 100% isodose line with 15 MV and 2 funk.) ELAPSED TIME: 44 days. TOLERANCE/ RESPONSE: She has moderate pain in the right axilla controlled with ibuprofen as needed. She has small area of desquamation in the right axilla and uses Silvadene cream. REMARKS: She tolerated radiation treatment well overall. Four week follow-up with me. Staff Physician LIZ SALOMON M.D. / 51:39 PM Electronically Signed cc: Christiano Wooten [address] [place] [address] Michael Mackey [address] [facility] [id number] documented in this encounter [facility] 07-10-2024 Note [facility] 07-02-2024 Note [facility] 07-02-2024 Note [facility] 06-26-2024 History of Present illness Narrative Diagnosis: 1) Breast cancer. HPI: The patient is a 63 yo female who appreciated a mass in her right breast in 11/2011. She thought it may have been a cyst as she had one in the past. Her mother had been on hospice at the time for end stage CHF/Alzheimer's disease. She sought care when thought it was enlarging in April 2012. Was seen by a senior sales manager who ordered a mammogram with ultrasound. The studies completed May 22, 2012 demonstrated a 1 x 1 x 1.3 cm hypoechoic irregular mass at the 11:00 position of the right breast in the retroareolar region on ultrasound which corresponded to an abnormality on bilateral diagnostic mammogram. Was referred to Dr. Ayala who performed a US guided biopsy 05/30/12. Pathology significant for an invasive ductal carcinoma, nuclear grade 2, with micropapillary features (see comment). - Lymphovascular invasion is identified. ER/SC both >95% and HER2(ERBB2) gene amplification is absent by FISH. Because patient had previous breast augmentation, was referred to Dr. Whitaker and Shauna. Underwent right skin-sparing mastectomy and sentinel node biopsy and immediate replacement of implant 07/19/12. Pathology: 1. Right sentinel lymph node #1, biopsy (A) - Metastatic carcinoma involving one lymph node (1/); metastasis measures 0.6 cm in greatest dimension; with focal extranodal extension identified. 2. Right sentinel lymph node #2, biopsy (B) - One lymph node, negative for malignancy (0/1). 3. Right breast, skin-sparing mastectomy (C) - Invasive ductal carcinoma, Bartlett-Damico grade III (see comment). - Ductal carcinoma in situ, high nuclear grade, solid type with comedo necrosis and microcalcifications. - Atypical ductal hyperplasia. - Fibrocystic change including stromal fibrosis. - Biopsy site reparative changes and biopsy clips x3. 4. Right breast, implant, removal (D) -Breast implant (gross examination only). Tumor Size: (Size of Largest Invasive Carcinoma) Greatest dimension of largest focus of invasion over 0.1 cm: 1.8 cm Tumor Focality: Single focus of invasive carcinoma Extent of Tumor: Skin: Negative for neoplasm. Nipple: Negative for neoplasm Chest wall: No skeletal muscle is present in the specimen Margins: Invasive carcinoma: Negative Closest margin: Invasive carcinoma is present 0.9 cm from the deep margin of resection DCIS: Negative Closest margin: Ductal carcinoma in situ is present 1 cm from the deep margin of resection Histologic Type of Invasive Carcinoma: Ductal Histologic Grade: Glandular (Acinar)/Tubular Differentiation: 3 Nuclear Grade: 3 Mitotic Rate: 2 Overall Bartlett Damico Grade: III Lymph-Vascular Invasion: Present Ductal Carcinoma In Situ (DCIS): DCIS is present Type: Solid Nuclear Grade: 3 Necrosis: Comedo type Lymph Nodes: (required only if lymph nodes are present in the specimen) Number of sentinel lymph nodes examined: 2 Total number of lymph nodes examined (sentinel and nonsentinel): 2 Number of lymph nodes with macrometastases (>0.2 cm): 1 Number of lymph nodes with micrometastases (>0.2 mm to 0.2 cm and/or >200cells): 0 Number of lymph nodes with isolated tumor cells (less than or equal to 0.2 mm and less than or equal to 200 cells): 0 Number of lymph nodes without tumor cells identified: 1 Size of largest metastatic deposit (if present): 0.6 cm Extranodal Invasion: Present Amount: 0.8 mm Apparently initial specimens were negative for lara involvement (specimen improperly collected in OR), but final path showed tumor presence. Underwent subsequent ALND 07/31/12--Right axillary contents, axillary dissection (A) - Four lymph nodes, negative for metastatic carcinoma (0/4); AJCC stage pN0 Enrolled in S1007. Recurrence sore of 12 (8% average rate of distant recurrence). Randomized to AI therapy. Started exemestane 10/23/12. Couldn't get financial assistance for anastrozole. Underwent evaluation for diarrhea that started soon after beginning exemestane. Repeat colonoscopy with histologic evidence lymphocytic colitis. Patient however continued exemestane as it wasn't clear that it caused the lymphocytic colitis. Self d/c'ed exemestane in May 2013. Diarrhea significantly slowed and she had a two week period of formed stool with BM daily in am. Started Aromasin again and diarrhea started again. Stopped Aromasin after 9 days. Previous therapy: 1) Exemestane 10/2012-05/2013. Stopped due to diarrhea. 2) Letrozole 08/2013-08/2014. Stopped due to angioedema of the lips. 3) Tamoxifen. 09/2014-01/2015. Stopped due to recurrent angioedema. 4) Anastrozole. 5) Raloxifene started 06/2015. Stopped due to diarrhea. Saw plastic surgeon to get reconstruction adjusted. 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 Pathology: A. LEFT BREAST TISSUE, EXCISION: - BENIGN BREAST TISSUE WITH FOCAL APOCRINE METAPLASIA AND UNREMARKABLE SKIN B. LYMPH NODES, RIGHT AXILLARY, EXCISION: - METASTATIC DUCTAL CARCINOMA (ISOLATED TUMOR CELLS) IN ONE OUT OF TWO LYMPH NODES (1/2) Ancillary studies: Pancytokeratin: Positive for ITCs C. 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 The patient's history of breast cancer is noted. The tumor measures 1.2 cm in greatest dimension and extends to all the peripheral cauterized aspects of the specimen. The clinician was notified of the above diagnosis on 04/04/2024. This part of this case was reviewed by Dr. Gonzalez who concurs with the above interpretation. Ancillary studies: Pancytokeratin: Positive E-cadherin: Positive SOX10: Negative Mart1: Negative D. LEFT BREAST IMPLANT, REMOVAL: - SEE GROSS DESCRIPTION BELOW (GROSS ONLY) Synoptic Checklist Breast Biomarker Reporting Template BREAST BIOMARKER REPORTING TEMPLATE - All Specimens Protocol posted: 01/25/2023 Test(s) Performed: Estrogen Receptor (ER) Status: Positive (greater than 10% of cells demonstrate nuclear positivity) Percentage of Cells with Nuclear Positivity: 91-100% Average Intensity of Staining: Strong Test Type: Food and Drug Administration (FDA) cleared (test / vendor): [employer] Primary Antibody: SP1 Test(s) Performed: Progesterone Receptor (PgR) Status: Positive Percentage of Cells with Nuclear Positivity: 71-80% Average Intensity of Staining: Strong Test Type: Food and Drug Administration (FDA) cleared (test / vendor): [employer] Primary Antibody: 1E2 Test(s) Performed: HER2 by Immunohistochemistry: Negative (Score 1+) Emergent appendectomy 12/2023. Was having diarrhea since then. Colestipol worked to control it. Without it, 3-4 urgent episodes watery diarrhea a day. Presents for ongoing oncologic management. Interim history: She is completing a course of budesonide. Discontinue colestipol. Diarrhea has resolved. PAST MEDICAL HISTORY Diagnosis Date Abnormal uterine bleeding (AUB) 2001 Hysterectomy Breast cancer (HCC) 03/06/2017 Lump or mass in breast left breast Malignant neoplasm of right breast in female, estrogen receptor positive (HCC) 03/06/2017 Mitral valve prolapse PVC (premature ventricular contraction) Smoker Supraventricular tachycardia (HCC) 11/23/2020 PAST SURGICAL HISTORY Procedure Laterality Date AXILLARY LYMPHADENECTOMY 07/31/2012 right axilla BREAST AUGMENTATION W/PROSTHETIC IMPLANT 1999 BREAST BIOPSY CORE 05/30/2012 right breast BREAST BIOPSY CORE 06/06/2012 right breast BREAST RECONSTRUCTION 07/19/2012 right breast single step implant CARPAL TUNNEL Bilateral wrists COLONOSCOPY FLX DX W/COLLJ SPEC WHEN PFRMD 01/01/2013 Normal colonoscopy-5 year followup - family history COLONOSCOPY FLX DX W/COLLJ SPEC WHEN PFRMD 05/08/2013 Colonoscopy EGD TRANSORAL BIOPSY SINGLE/MULTIPLE 01/01/2013 gastritis FNA UNDER GUIDANCE 06/06/2012 right breast by ultrasound INCISE FINGER TENDON SHEATH Right 09/18/2019 Right trigger thumb release LIG/TRNSXJ FLP TUBE ABDL/VAG APPR UNI/BI 1984 MASTECTOMY, SIMPLE, COMPLETE 07/19/2012 right breast with SLND PAST SURGICAL HISTORY OF oral surgery PAST SURGICAL HISTORY OF removal of pingula left eye TONSILLECTOMY HX VAGINAL HYSTERECTOMY UTERUS 250 GM/< 2002 AUB, possible abnormal pap prior to hysterectomy ALLERGIES Allergen Reactions Arimidex [Anastrozo* Rash Aromasin [Exemestan* Diarrhea Tamoxifen Rash Letrozole Rash Current Outpatient Medications Medication Sig silver sulfADIAZINE (SILVADENE) 1 % cream Apply 1 application to affected area two times a day. methocarbamol (ROBAXIN) 750 mg tablet Take 750 mg by mouth three times a day as needed. colestipol (COLESTID) 1 gram tablet Take 2 tablets by mouth daily at bedtime. (Patient not taking: Reported on 06/11/2024) biotin 1 mg cap Take 1 capsule by mouth once daily. fluocinonide (LIDEX) 0.05 % cream Apply to affected area two times a day as needed (for areas of rash, limit to not more than 2 weeks use at a time.). No current facility-administered medications for this visit. Family History Problem Relation Age of Onset Anesthesia Father Macular Degen Father other (Other) Father Colon Cancer Father 60 Skin Cancer Father Allergies Mother Heart Mother Hypertension Mother Stroke Mother Hypertension Sister Blindness Sister Lymphoma Sister Allergies Sister other (non-hodgkins lymphoma) Sister other (Jim-Echo Syndrome) Sister Heart Attack Brother 57 other (Leukemia) Paternal Aunt Colon Cancer Paternal Uncle dx 70's other (Leukemia) Paternal Uncle Breast Cancer Other maternal aunt, in her 60's Prostate Cancer Other paternal cousin Cancer Other paternal first cousin dx lacrimal sac tumor d. 25 Cancer Other /paternal first cousin dx tumor size of cabbage on chest wall ROS: Constitutional: Denies episodes of fever. Neuro: Denies CORONADO, vertigo, dizziness and imbalance. Denies symptoms of neuropathy. HEENT: No recent change in voice, vision or hearing. Resp: Denies cough, wheeze and hemoptysis. Denies shortness of breath at rest. CVS: Denies exertional chest pain, PND, orthopnea and LE edema. GI: Denies dysgeusia. Denies symptoms of stomatitis. Denies dysphagia and odynophagia. : See above. Endo: Denies hot flashes. Denies polyuria and polydipsia. Denies heat and cold intolerance. Musculoskeletal: See above. Derm: Denies rash. Denies jaundice and diffuse pruritis. Heme: Denies unusual bleeding and unexplained bruising. Psych: Normal mood. PHYSICAL EXAM: Vitals: Blood pressure 162/92, pulse (!) 55, temperature 36.2 C (97.1 F), temperature source Temporal, weight 73.3 kg (161 lb 8 oz), SpO2 96%. Well-appearing and in no acute distress. EYES: Sclerae are anicteric bilaterally. ABD: Abdomen is nondistended. Extremities: No edema. Genetic testing: Per record at [facility] 04/29/2024 no mutations or variants of undetermined significance and 36 genes analyzed. 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 -Originally declined radiation. -Resected axillary recurrence. Reviewed pathology review from [facility]. Morphologically similar to previous breast cancer. -Recommended exemestane. We discussed this previously. Pending her tolerance we could also consider CD4/6 inhibitor added to the exemestane, but that may not be clearly indicated since no metastatic disease. Literature search suggests no association of exemestane lymphocytic colitis. If diarrhea returns, then GI referral. Plan: -Rx exemestane with instructions to start 2 weeks post radiation. - Office visit in about 8 weeks to assess. Portions of this documentation were copied and pasted from my previous office visit note dated 05/01/2024 in order to provide a cohesive continuity of the history. The note has been reviewed and edited and updated as necessary. Michael Mackey DO documented in this encounter [facility] 06-26-2024 Note [facility] 06-25-2024 Note [facility] 06-25-2024 History of Present illness Narrative Radiation Therapy - Nursing Note (OTV) PATIENT NAME: Shakira Franklin PATIENT June 25, 2024 [facility] FACILITY/LOCATION: [place] NURSING NOTE TYPE: BREAST Subjective Data see pain assessment, very emotional today as uncle is on hospice and will pass soon pain in throat also with discomfort with swallowing Additional Data Do you want to see a Sole Stainer? No Status: Post-menopausal. Stress Scale: On a scale of 0 to 10, what number best describes how much distress you have experienced in the past week?(0 being no distress and 10 being extreme distress) 9 Social work notified: Pt denied need to see social media content specialist at this time. Nursing Assessment Fatigue: severe; loss of ability to perfrom some activities Appetite: good Nutritional Intake: Regular oral intake. Weight Gain/Loss: Not applicable Ambulatory weight history: Last 6 Encounter Wt Readings: Date: Wt: 06/11/2024 72.3 kg (159 lb 6.3 oz) 05/08/2024 69.4 kg (153 lb) 05/01/2024 69.4 kg (153 lb) 04/16/2024 70.5 kg (155 lb 6.8 oz) 04/16/2024 71 kg (156 lb 8 oz) 03/21/2024 70.6 kg (155 lb 9.6 oz) Nausea:None Vomiting: None Bowel Function: normal bowel movements Erythema/Hyperpigmentation: mild to sever(in axilla Desquamation:moist desquamation Rash:mild Skin Care: Aquaphor Skin Sensation: mild itching and mild burning Focused Assessment BREAST: Lymphedema Assessment: Is the patient noting any swelling? No. SIGNED by: Jania Barnes RN Radiation Oncology - On Treatment Review (OTR) Note PATIENT NAME: Shakira Franklin PATIENT DIAGNOSIS: Regional recurrence of right breast cancer s/p right axillary excision on 04/02/24. It was ER positive (91-100%, strong), SC positive (71-80%, strong) and Her2 negative. 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 1/6 node positive with extranodal extension. COURSE: adjuvant AREA TREATED: Right chest wall/IM/SC/axilla CURRENT DOSE: 4400 cGy in 22 fx PLANNED DOSE: 6000 cGy in 30 fx Status: Post-menopausal SUBJECTIVE: She has some fatigue. EXAM: KPS: 90 General Appearance: Alert and oriented. No acute distress. Radiation dermatitis: Moderate. Small area of dry desquamation in the right axilla. IMAGING/LAB RESULTS: None Treatment chart checked: Yes Patient treatment site reviewed and verified:Yes Port films reviewed and current:Yes Medications started: Silvadene cream. ASSESSMENT/PLAN: Clinically stable. Toxicity within expected parameters. Continue radiation treatment as planned. Liz Salomon MD documented in this encounter [facility] 06-25-2024 Note [facility] 06-18-2024 Note [facility] 06-18-2024 History of Present illness Narrative Radiation Therapy - Nursing Note (OTV) PATIENT NAME: Shakira Franklin PATIENT June 18, 2024 [facility] FACILITY/LOCATION: [place] NURSING NOTE TYPE: BREAST Subjective Data See pain assessment tenderness under right arm Additional Data Do you want to see a Sole Stainer? No Status: Post-menopausal. Stress Scale: On a scale of 0 to 10, what number best describes how much distress you have experienced in the past week?(0 being no distress and 10 being extreme distress) 3 Social work notified: Pt denied need to see social media content specialist at this time. Nursing Assessment Fatigue: varies but can be severe Appetite: good Nutritional Intake: Regular oral intake. Weight Gain/Loss: Not applicable Ambulatory weight history: Last 6 Encounter Wt Readings: Date: Wt: 06/11/2024 72.3 kg (159 lb 6.3 oz) 05/08/2024 69.4 kg (153 lb) 05/01/2024 69.4 kg (153 lb) 04/16/2024 70.5 kg (155 lb 6.8 oz) 04/16/2024 71 kg (156 lb 8 oz) 03/21/2024 70.6 kg (155 lb 9.6 oz) Nausea:None Vomiting: None Bowel Function: normal bowel movements Erythema/Hyperpigmentation:moderate Desquamation:none Rash:none Skin Care: Aquaphor Skin Sensation: Within Normal Limits Focused Assessment BREAST: Lymphedema Assessment: Is the patient noting any swelling? No. SIGNED by: Jania Barnes RN Radiation Oncology - On Treatment Review (OTR) Note PATIENT NAME: Shakira Franklin PATIENT DIAGNOSIS: Regional recurrence of right breast cancer s/p right axillary excision on 04/02/24. It was ER positive (91-100%, strong), SC positive (71-80%, strong) and Her2 negative. 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 1/6 node positive with extranodal extension. COURSE: adjuvant AREA TREATED: Right chest wall/IM/SC/axilla CURRENT DOSE: 3400 cGy in 17 fx PLANNED DOSE: 6000 cGy in 30 fx Status: Post-menopausal SUBJECTIVE: She has some fatigue. EXAM: KPS: 90 General Appearance: Alert and oriented. No acute distress. Radiation dermatitis: Minimal IMAGING/LAB RESULTS: None Treatment chart checked: Yes Patient treatment site reviewed and verified:Yes Port films reviewed and current:Yes Medications started: None ASSESSMENT/PLAN: Clinically stable. Toxicity within expected parameters. Continue radiation treatment as planned. Liz Salomon MD documented in this encounter [facility] 06-18-2024 Note [facility] 06-11-2024 Note [facility] 06-11-2024 History of Present illness Narrative Radiation Therapy - Nursing Note (OTV) PATIENT NAME: Shakira Franklin PATIENT June 11, 2024 [facility] FACILITY/LOCATION: [facility] NOTE TYPE: BREAST Subjective Data I'm tender under arm Additional Data Do you want to see a Sole Stainer? No Status: Post-menopausal. Stress Scale: On a scale of 0 to 10, what number best describes how much distress you have experienced in the past week?(0 being no distress and 10 being extreme distress) 3 Social work notified: Pt denied need to see social media content specialist at this time. Nursing Assessment Fatigue: increased fatigue over baseline but not altering normal activities Appetite: good Nutritional Intake: Regular oral intake. Weight Gain/Loss: Not applicable Ambulatory weight history: Last 6 Encounter Wt Readings: Date: Wt: 06/11/2024 72.3 kg (159 lb 6.3 oz) 05/08/2024 69.4 kg (153 lb) 05/01/2024 69.4 kg (153 lb) 04/16/2024 70.5 kg (155 lb 6.8 oz) 04/16/2024 71 kg (156 lb 8 oz) 03/21/2024 70.6 kg (155 lb 9.6 oz) Nausea:None Vomiting: None Bowel Function: normal bowel movements Erythema/Hyperpigmentation:mild Desquamation:none Rash:none Skin Care: Aquaphor Skin Sensation: Within Normal Limits Focused Assessment BREAST: Lymphedema Assessment: Is the patient noting any swelling? No. SIGNED by: Jania Barnes RN Radiation Oncology - On Treatment Review (OTR) Note PATIENT NAME: Shakira Franklin PATIENT DIAGNOSIS: Regional recurrence of right breast cancer s/p right axillary excision on 04/02/24. It was ER positive (91-100%, strong), SC positive (71-80%, strong) and Her2 negative. 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 1/6 node positive with extranodal extension. COURSE: adjuvant AREA TREATED: Right chest wall/IM/SC/axilla CURRENT DOSE: 2400 cGy in 12 fx PLANNED DOSE: 6000 cGy in 30 fx Status: Post-menopausal SUBJECTIVE: She has some fatigue. EXAM: KPS: 90 General Appearance: Alert and oriented. No acute distress. Radiation dermatitis: Minimal IMAGING/LAB RESULTS: None Treatment chart checked: Yes Patient treatment site reviewed and verified:Yes Port films reviewed and current:Yes Medications started: None ASSESSMENT/PLAN: Clinically stable. Toxicity within expected parameters. Continue radiation treatment as planned. Liz Salomon MD documented in this encounter [facility] 06-11-2024 Note [facility] 06-11-2024 Note [facility] 06-11-2024 History of Present illness Narrative CC: Patient presents with: Recheck: Blood pressure HPI Recording using [email or web address] software for draft documentation of the visit was discussed with the patient/authorized outbound sales representative; all questions welcomed and answered. Patient/authorized outbound sales representative agreed to proceed DONNA is a 63-year-old female presenting with concerns about elevated blood pressure readings. DONNA reports elevated blood pressure readings over the past few months, particularly during radiation therapy sessions, which she attributes to anxiety. She does not have a history of hypertension and notes that her blood pressure is typically on the lower side. Today's reading is 115/74 mmHg. She has been monitoring her blood pressure at home using a cuff provided by her insurance company, but admits to not checking it daily as recommended. She also reports experiencing headaches, which she believes may be related to the elevated blood pressure readings. She denies chest pain, any new or worsening palpitations, which she describes as normal for her, and denies any new dyspnea. She does report mild swelling in her ankles and feet, which she attributes to her increased fluid intake of at least 64 ounces per day as recommended. She manages the swelling by wearing compression socks, which she states helps keep it under control. She notes that the swelling is not normal for her. She denies any episodes of blurred vision, diaphoresis, flushing, dizziness, or lightheadedness associated with the elevated blood pressure readings. Review of Systems See HPI PAST MEDICAL HISTORY Diagnosis Date Abnormal uterine bleeding (AUB) 2001 Hysterectomy Breast cancer (HCC) 03/06/2017 Lump or mass in breast left breast Malignant neoplasm of right breast in female, estrogen receptor positive (HCC) 03/06/2017 Mitral valve prolapse PVC (premature ventricular contraction) Smoker Supraventricular tachycardia (HCC) 11/23/2020 PAST SURGICAL HISTORY Procedure Laterality Date AXILLARY LYMPHADENECTOMY 07/31/2012 right axilla BREAST AUGMENTATION W/PROSTHETIC IMPLANT 1999 BREAST BIOPSY CORE 05/30/2012 right breast BREAST BIOPSY CORE 06/06/2012 right breast BREAST RECONSTRUCTION 07/19/2012 right breast single step implant CARPAL TUNNEL Bilateral wrists COLONOSCOPY FLX DX W/COLLJ SPEC WHEN PFRMD 01/01/2013 Normal colonoscopy-5 year followup - family history COLONOSCOPY FLX DX W/COLLJ SPEC WHEN PFRMD 05/08/2013 Colonoscopy EGD TRANSORAL BIOPSY SINGLE/MULTIPLE 01/01/2013 gastritis FNA UNDER GUIDANCE 06/06/2012 right breast by ultrasound INCISE FINGER TENDON SHEATH Right 09/18/2019 Right trigger thumb release LIG/TRNSXJ FLP TUBE ABDL/VAG APPR UNI/BI 1984 MASTECTOMY, SIMPLE, COMPLETE 07/19/2012 right breast with SLND PAST SURGICAL HISTORY OF oral surgery PAST SURGICAL HISTORY OF removal of pingula left eye TONSILLECTOMY HX VAGINAL HYSTERECTOMY UTERUS 250 GM/< 2001 AUB, possible abnormal pap prior to hysterectomy ALLERGIES Arimidex [Anastrozole], Aromasin [Exemestane], Tamoxifen, and Letrozole MEDICATIONS budesonide 9 mg TaDE Take 1 tablet by mouth once daily. methocarbamol (ROBAXIN) 750 mg tablet Take 750 mg by mouth three times a day as needed. colestipol (COLESTID) 1 gram tablet Take 2 tablets by mouth daily at bedtime. biotin 1 mg cap Take 1 capsule by mouth once daily. fluocinonide (LIDEX) 0.05 % cream Apply to affected area two times a day as needed (for areas of rash, limit to not more than 2 weeks use at a time.). FAMILY HISTORY Problem Relation Age of Onset Anesthesia Father Macular Degen Father other (Other) Father Colon Cancer Father 60 Skin Cancer Father Allergies Mother Heart Mother Hypertension Mother Stroke Mother Hypertension Sister Blindness Sister Lymphoma Sister Allergies Sister other (non-hodgkins lymphoma) Sister other (Jim-Rochester Syndrome) Sister Heart Attack Brother 57 other (Leukemia) Paternal Aunt Colon Cancer Paternal Uncle dx 70's other (Leukemia) Paternal Uncle Breast Cancer Other maternal aunt, in her 60's Prostate Cancer Other paternal cousin Cancer Other paternal first cousin dx lacrimal sac tumor d. 25 Cancer Other /paternal first cousin dx tumor size of cabbage on chest wall Social History Tobacco Use Smoking status: Former Current packs/day: 0.00 Average packs/day: 0.5 packs/day for 12.0 years (6.0 ttl pk-yrs) Types: Cigarettes Start date: 08/31/2009 Quit date: 08/31/2021 Years since quittin.7 Smokeless tobacco: Never Tobacco comments: relapsed 10/2020 Vaping Use Vaping status: Never Used Substance Use Topics Alcohol use: Yes Comment: once a month, 1 drink Drug use: Not Currently Comment: History of remote cocaine use(as young adult) BP 115/74 Pulse 74 Resp 14 Wt 72.3 kg (159 lb 6.3 oz) SpO2 97% BMI 25.73 kg/m Physical Exam Vitals reviewed. Constitutional: General: She is not in acute distress. Appearance: Normal appearance. She is not ill-appearing or toxic-appearing. Cardiovascular: Rate and Rhythm: Normal rate and regular rhythm. Heart sounds: Normal heart sounds. No murmur heard. Pulmonary: Effort: Pulmonary effort is normal. Breath sounds: Normal breath sounds. No wheezing, rhonchi or rales. Musculoskeletal: Right lower leg: No edema. Left lower leg: No edema. Neurological: Mental Status: She is alert. Psychiatric: Mood and Affect: Affect normal. Mood is anxious. DATA REVIEWED: Most recent labs Labs: - Kidney function: Normal - Blood counts: Normal Assessment/Plan 1. Elevated blood pressure reading (R03.0) BP readings in the office have been within normal limits: 115/74 today, 120/68 in April, 118/68 in February, and 124/86 last year. No history of chronic hypertension; typically has low blood pressure. Recent elevated readings likely due to anxiety during radiation therapy sessions. - Advised against initiating antihypertensive medication due to risk of hypotension. - Recommended monitoring BP at home once or twice a week to avoid anxiety-induced elevations. 2. Anxiety (F41.9) Likely contributing to transient elevated BP readings during radiation therapy sessions. No new or worsening symptoms of palpitations or shortness of breath. - Continue current management. 3. Dependent edema (R60.9) Edema in ankles and feet. No signs of renal dysfunction; recent labs show normal kidney function and blood counts. - Continue wearing compression socks to manage edema. - follow-up as needed if persists or worsens I spent a total of 20 minutes on the date of the service which included preparing to see the patient, [id number] patient care, completing clinical documentation, performing a medically appropriate examination, and counseling and educating the patient/family/caregiver. Prescription instructions reviewed with patient as applicable. Potential red flag symptoms discussed with the patient. Reviewed appropriate action plan to take if red flag symptoms occur. Patient agreeable to treatment plan. Cheryl Fisher APRN.PHARMACEUTICAL OFFICER documented in this encounter [facility] 06-04-2024 Note [facility] 06-04-2024 History of Present illness Narrative Radiation Therapy - Nursing Note (OTV) PATIENT NAME: Shakira Franklin PATIENT June 04, 2024 [facility] FACILITY/LOCATION: [facility] NOTE TYPE: BREAST Subjective Data no new complaints Additional Data Do you want to see a Sole Stainer? No Status: Post-menopausal. Stress Scale: On a scale of 0 to 10, what number best describes how much distress you have experienced in the past week?(0 being no distress and 10 being extreme distress) 3 Social work notified: Pt denied need to see social media content specialist at this time. Nursing Assessment Fatigue: tired but didn't sleep, first day back to work Appetite: good Nutritional Intake: Regular oral intake. Weight Gain/Loss: Not applicable Ambulatory weight history: Last 6 Encounter Wt Readings: Date: Wt: 05/08/2024 69.4 kg (153 lb) 05/01/2024 69.4 kg (153 lb) 04/16/2024 70.5 kg (155 lb 6.8 oz) 04/16/2024 71 kg (156 lb 8 oz) 03/21/2024 70.6 kg (155 lb 9.6 oz) 03/12/2024 68.7 kg (151 lb 7.3 oz) Nausea:None Vomiting: None Bowel Function: normal bowel movements Erythema/Hyperpigmentation:none Desquamation:none Rash:none Skin Care: Aquaphor Skin Sensation: Within Normal Limits Focused Assessment BREAST: Lymphedema Assessment: Is the patient noting any swelling? No. SIGNED by: Janai Barnes RN Radiation Oncology - On Treatment Review (OTR) Note PATIENT NAME: Shakira Franklin PATIENT DIAGNOSIS: Regional recurrence of right breast cancer s/p right axillary excision on 04/02/24. It was ER positive (91-100%, strong), SC positive (71-80%, strong) and Her2 negative. 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 1/6 node positive with extranodal extension. COURSE: adjuvant AREA TREATED: Right chest wall/IM/SC/axilla CURRENT DOSE: 1400 cGy in 7 fx PLANNED DOSE: 6000 cGy in 30 fx Status: Post-menopausal SUBJECTIVE: She is doing well without any specific new complaints. EXAM: KPS: 90 General Appearance: Alert and oriented. No acute distress. Radiation dermatitis: No IMAGING/LAB RESULTS: None Treatment chart checked: Yes Patient treatment site reviewed and verified:Yes Port films reviewed and current:Yes Medications started: None ASSESSMENT/PLAN: Clinically stable. Toxicity within expected parameters. Continue radiation treatment as planned. Liz Salomon MD documented in this encounter [facility] 06-04-2024 Note [facility] 05-28-2024 Note [facility] 05-28-2024 History of Present illness Narrative Radiation Oncology - On Treatment Review (OTR) Note PATIENT NAME: Shakira Franklin PATIENT DIAGNOSIS: Regional recurrence of right breast cancer s/p right axillary excision on 04/02/24. It was ER positive (91-100%, strong), SC positive (71-80%, strong) and Her2 negative. h/o pathological stage IB, pT1c pN1, grade 3 invasive ductal carcinoma of the right breast in 2013 treated with modified radical mastectomy and right axillary node dissection and then hormonal therapy. 1/6 node positive with extranodal extension. COURSE: adjuvant AREA TREATED: Right chest wall/IM/SC/axilla CURRENT DOSE: 400 cGy in 2 fx PLANNED DOSE: 6000 cGy in 30 fx Status: Post-menopausal SUBJECTIVE: She felt some burning sensation in the upper right back. No skin changes there. EXAM: KPS: 90 General Appearance: Alert and oriented. No acute distress. Radiation dermatitis: No IMAGING/LAB RESULTS: None Treatment chart checked: Yes Patient treatment site reviewed and verified:Yes Port films reviewed and current:Yes Medications started: None ASSESSMENT/PLAN: Clinically stable. Toxicity within expected parameters. Continue radiation treatment as planned. Liz Salomon MD Radiation Therapy - Nursing Note (OTV) PATIENT NAME: Shakira Franklin PATIENT May 28, 2024 [facility] FACILITY/LOCATION: [place] NURSING NOTE TYPE: BREAST Subjective Data some burning type sensation right upper back Additional Data Do you want to see a Sole Stainer? No Status: Post-menopausal. Stress Scale: On a scale of 0 to 10, what number best describes how much distress you have experienced in the past week?(0 being no distress and 10 being extreme distress) 2 Social work notified: Pt denied need to see social media content specialist at this time. Nursing Assessment Fatigue: none Appetite: good Nutritional Intake: Regular oral intake. Weight Gain/Loss: Not applicable Ambulatory weight history: Last 6 Encounter Wt Readings: Date: Wt: 05/08/2024 69.4 kg (153 lb) 05/01/2024 69.4 kg (153 lb) 04/16/2024 70.5 kg (155 lb 6.8 oz) 04/16/2024 71 kg (156 lb 8 oz) 03/21/2024 70.6 kg (155 lb 9.6 oz) 03/12/2024 68.7 kg (151 lb 7.3 oz) Nausea:None Vomiting: None Bowel Function: normal bowel movements Erythema/Hyperpigmentation:none Desquamation:none Rash:none Skin Care: Aquaphor Skin Sensation: moderate burning just started today after treatment, had yesterday but had gone away Focused Assessment BREAST: Not applicable. SIGNED by: Jania Barnes RN documented in this encounter [facility] 05-28-2024 Note [facility] 05-27-2024 Telephone encounter Note Spoke w pt and this has been scheduled. Shoshana Cortes [facility] 05-27-2024 Miscellaneous Notes Spoke w pt and this has been scheduled. Shoshana Cortes Pt. Notified order has been placed , she can call to get mamm scheduled at her convenience. Diane Garza LPN Order in. Alea Langston APRN.VALERIA Patient stopped and asked to reschedule her mammogram to September. Patient states since she had surgery she is suppose to wait till Sep. Order expires September 02. Please advise Sneha De Leon documented in this encounter [facility] 05-27-2024 Telephone encounter Note Pt. Notified order has been placed , she can call to get mamm scheduled at her convenience. Diane Garza LPN [facility] 05-27-2024 Telephone encounter Note Order in. Alea Langston APRN.VALERIA [facility] 05-27-2024 Telephone encounter Note Patient stopped and asked to reschedule her mammogram to September. Patient states since she had surgery she is suppose to wait till Sep. Order expires September 02. Please advise Sneha De Leon [facility] 05-20-2024 Note [facility] 05-20-2024 History of Present illness Narrative Radiation Therapy - Patient Education Note PATIENT NAME: Shakira Franklin PATIENT May 20, 2024 [facility] FACILITY/LOCATION: [place] READINESS TO LEARN Cognitive Ability: Alert and oriented Motivation to learn: Interested Family Support: High - Very involved in pt care Instruction provide to: Patient and Caregiver Patient learns best by: Multiple Methods Factors effecting learning: Emotional Factors: Anxious Fearful Physical limitations effecting learning: None LEARNING RESPONSE Diagnosis: Pt simulated today for radiation therapy to right breast. Education Topic/Teaching Points: Radiation therapy, Side effects, and OTV: Method of instruction: Teach Back skin care Individual instruction Written instruction/Handouts Verbal instruction Patient /Family response: Patient and family verbalized understanding of radiation treatments, side effects, OTV, and transportation. Follow-up plan: Patient instructed to call with any further issues Contact information given. Supplemental material: Informational handouts on Department phone list, Fatigue, and [place] instructions, XRT sheet and Aquaphor handout. Referral (recommendation): None, Pt denied need for social work, van service, and diesel engine tester. Patient has an Onbody or Implanted device: No Signed by: Pamela Muñoz RN documented in this encounter [facility] 05-20-2024 History of Present illness Narrative SHAKIRA FRANKLIN [id number] 05/20/2024 [facility] Department of Radiation Oncology [facility] RADIATION ONCOLOGY SIMULATION NOTE DATE OF SIMULATION: 05/20/2024 MACHINE: Siemens Definition CT Simulator Diagnosis: Regional recurrence of right breast cancer s/p right axillary excision on 04/02/24. It was ER positive (91-100%, strong), SC positive (71-80%, strong) and Her2 negative. 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 1/6 node positive with extranodal extension AREA:Right chest wall/axilla/SC/IM PATIENT POSITION: Supine. CONTRAST: None PROTOCOL: None BLOCKING: Custom blocking to be determined at treatment planning. FIXATION DEVICE: In order to achieve accurate and reproducible treatments, the patient is to be immobilized with PROCEDURE: A time-out was conducted and recorded by the therapist. Patient was simulated on the CT scanner for external beam radiation therapy. Treatment site was marked by the simulation therapist. ASSESSMENT/PLAN: Patient tolerated simulation procedure well. Treatments will be initiated after treatment planning. The patient is scheduled for a verification simulation on the treatment machine to ensure proper set-up and field arrangement is correct prior to the first treatment of primary and boost funk if applicable. Electronically Signed Liz Salomon M.D./mady 0:08 AM documented in this encounter [facility] 05-20-2024 History of Present illness Narrative SHAKIRA FRANKLIN Kia [id number] 05/20/2024 [facility] Department of Radiation Oncology Treatment Planning Note For reasons stated in the consult note, Shakira Franklin is a candidate for radiation therapy. Based on review and interpretation of the relevant diagnostic studies together with the exam findings, Shakira Franklin was simulated on 05/20/2024 at which time the target volume and/or requisite funk were delineated, as indicated in the simulation note, to be treated according to the prescription. The treatment target and organs at risk were contoured on the simulation scan. Special consideration to these and other structures was given in light of the potential for increased toxicities due to presence of a prosthesis (tissue dog breeder or implant) in the treatment field. After reviewing multiple treatment plans with dosimetry, the best plan was approved to deliver the prescribed course of radiation to the target area using 3D planning to allow for the best isodose distribution, treating to the 100% isodose line with 15,10 MV and 4 segmented funk. Custom MLC asym jaws were the treatment device(s) used to shape/modify the beams. Limiting dose to normal tissue was confirmed upon review of the calculated dose volume histogram. A completed summary of this plan dated 05/22/2024 incorporated herein by reference includes dose, beam arrangements, energy, blocking, isodose distribution, and/or ports and DVH. Electronically Signed Liz Salomon M.D. 0:08 AM documented in this encounter [facility] 05-20-2024 Note [facility] 05-20-2024 Note [facility] 05-17-2024 Telephone encounter Note Spoke with patient and she did cook pickled meat the Budesonide at her pharmacy. Encounter closed. [facility] 05-17-2024 Miscellaneous Notes Spoke with patient and she did cook pickled meat the Budesonide at her pharmacy. Encounter closed. Spoke with patient and she is waiting for [facility] to call her back about status of the Budesonide ER prescription. Shakira will call back if she has problems with the RX. Pt called back asking if Budesonide can be sent to [facility] pharmacy instead. Patient called into requesting to know if office has received prior authorization for budesonide. Please call patient to inform her if we received PA. documented in this encounter [facility] 05-14-2024 Telephone encounter Note Spoke with patient and she is waiting for [facility] to call her back about status of the Budesonide ER prescription. Shakira will call back if she has problems with the RX. [facility] 05-10-2024 Telephone encounter Note Pt called back asking if Budesonide can be sent to [facility] pharmacy instead. [facility] 05-09-2024 Telephone encounter Note Patient called into requesting to know if office has received prior authorization for budesonide. Please call patient to inform her if we received PA. [facility] Work Phone: 05-08-2024 Note [facility] 05-08-2024 History of Present illness Narrative FOLLOW UP VISIT NAME: Shakira Adam gagandeep [facility] NO.: [id number] DATE OF SERVICE: 05/08/2024 : 1960 REFERRING PHYSICIAN: Christiano Wooten MD Shakira is a patient I am following for diarrhea. The patient is a 63 year old female with a complaint of diarrhea/loose stools which have been relatively chronic since she was treated for acute appendicitis. The patient underwent a laparoscopic appendectomy in December 2023. She has noted looser stools since that time. Initially she was experiencing 1-2 loose stools per day but that it increased to 6-7 loose stools per day. She describes the diarrhea as watery. She denies blood in her stools. She has noted approximately a 10 pound weight loss and some poor appetite. She had tried [id number] Imodium that was not improving her symptoms. She denies true steatorrhea She saw Cheryl Fisher on March 12, 2024. She obtained C. difficile toxin, ova and parasites, calprotectin and laboratory studies. C. difficile toxin and ova and parasites were negative, calprotectin was somewhat elevated. Celiac panel was negative. She was prescribed Lomotil which had improved her diarrhea to when I saw her to 1-2 bowel movements per day but still has a somewhat decreased appetite. The patient has recently completed treatment for breast cancer and is scheduled for breast reconstruction surgery on April 02. She relayed to me that she underwent colonoscopy in 2013 and this was unremarkable. She noted 3 months of loose stools following the bowel prep for colonoscopy. She had a Cologuard test in April 2023 which was negative. I recommended a trial of cholestyramine and probiotics. She noted the cholestyramine was relatively bad tasting in the packet but she had in the past tried colestipol which she started taking and notes that she is getting some form with her stools. I reviewed her old endoscopy studies I performed upper and lower endoscopy for screening colonoscopy and epigastric pain back in 2012. The patient was then noting loose stools in 2013. She had a colonoscopy that appeared unremarkable but biopsies returned as consistent with: FINAL DIAGNOSIS Colon, random, biopsies - Multiple fragments of colonic mucosa with lymphocytic colitis-type pattern. - See comment COMMENT Multiple pieces of colonic mucosa are available for evaluation and demonstrate a lymphocytic colitis pattern of injury. The subepithelial collagen layer appears normal in thickness without evidence of collagenous colitis. Given the patient's history, a drug induced lymphocytic colitis should be clinically excluded. VITALS: Blood pressure 124/81, pulse 70, weight 69.4 kg (153 lb), SpO2 96%. Assessment IMPRESSION: Chronic diarrhea, distant prior biopsy history of lymphocytic colitis PLAN: If the patient notes any problems or signs of blood or worrisome symptoms in her stool, the patient should contact me immediately. The patient is reluctant to have another colonoscopy because she believes the bowel prep may have been responsible for starting her episodes of diarrhea which on further discussion of been progressive for some time. Given these concerns and a negative Cologuard test, I will give her a trial of budesonide for her lymphocytic colitis and see if this improves her symptoms. Diagnoses: (K52.832) Lymphocytic colitis Return to Clinic: The patient is instructed to follow-up with me as needed. Mainor Ayala MD documented in this encounter [facility] 05-03-2024 History of Present illness Narrative Images from the original note were not included. Chief Complaint Patient presents with Follow-up Treatment planning History of Present Illness: Shakira Franklin is a 63 y.o. female here for discussion of results- recurrent RIGHT breast cancer ( axillary recurrence) Still has drain in place Results of all testing reviewed and given to patient Cancer Staging Recurrent breast cancer, right (HCC) Staging form: Breast, AJCC 8th Edition - Clinical stage from 04/10/2024: Stage IB (rcT0, cN1, cM0, G2, ER+, SC+, HER2-) - Signed by Radha Terry MD on 04/10/2024 She c/o 7 mos history of right axillary pain and numbness- had nerve studies- negative Pain to better with injection so felt to be neuroma right axilla Also she wanted symmetry procedure so taken to surgery by plastic service for symmetry ( new implant left) and excision neuroma right- Dr. Cazares 04/02/24 5 mos history of left hip pain Pathology from right axilla 04/04/24 with metastatic ductal carcinoma in 1/2 LN ( ITC and right axillary neuroma was invasive ductal carcinoma 1.2 cm and extends to all the margins ER+, SC+, HER2 negative History of right breast cancer in [address] Mackey in [place]- postmastectomy radiation and AI therapy recommended Metastatic workup including CT neck/chest/abdomen/pelvis and bone scan negative for distant disease Genetic testing done 04/17/24: [facility] NEGATIVE History of Right breast invasive ductal carcinoma diagnosed on 05/30/2012 at [facility] Treatments include: Surgery- Right Skin Sparing Mastectomy with immediate implant replacement and SLNB on 07/26/2012- Dr. Whitaker (1/2 LN + 6 mm with focal extranodal extension ) Axillary LN Dissection- 07/31/2012-Dr. Whitaker (0/4 LN) Chemotherapy- no-Oncotype Recurrence score of 12 Radiation therapy- no Endocrine therapy- yes 1) Exemestane 10/2012-05/2013. Stopped due to diarrhea. 2) Letrozole 08/2013-08/2014. Stopped due to angioedema of the lips. 3) Tamoxifen. 09/2014-01/2015. Stopped due to recurrent angioedema. 4) Anastrozole. 5) Raloxifene started 06/2015. Stopped due to diarrhea. Last mammogram date 07/03/2023-LEFT SCREENING. BIRADS 2, 08/02/2023- RIGHT MAMMOGRAM AND ULTRASOUND-08/02/2023. BIRADS 1 Last DEXA 01/22/2024. Results: Normal. Genetics: negative 2024 Genetics: 04/28/2024-[facility] BRCA 1/2 Analyses with [employer]: NEGATIVE Pathology: Addendum 2 C. RIGHT AXILLARY NEUROMA: - INVASIVE DUCTAL CARCINOMA, GRADE 2 Comment: There is no surrounding lymph node tissue; however, the possibility that this could represent an entirely replaced lymph node cannot be excluded. The tumor is tracking along a nerve. Addendum electronically signed by Ty Garcia MD on 04/10/2024 at 1002 Addendum Additional ancillary study: LAI-3: Positive Addendum electronically signed by Ty Garcia MD on 04/05/2024 at 1026 Final Diagnosis A. LEFT BREAST TISSUE, EXCISION: - BENIGN BREAST TISSUE WITH FOCAL APOCRINE METAPLASIA AND UNREMARKABLE SKIN B. LYMPH NODES, RIGHT AXILLARY, EXCISION: - METASTATIC DUCTAL CARCINOMA (ISOLATED TUMOR CELLS) IN ONE OUT OF TWO LYMPH NODES (1/2) Ancillary studies: Pancytokeratin: Positive for ITCs C. 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 The patient's history of breast cancer is noted. The tumor measures 1.2 cm in greatest dimension and extends to all the peripheral cauterized aspects of the specimen. The clinician was notified of the above diagnosis on 04/04/2024. This part of this case was reviewed by Dr. Gonzalez who concurs with the above interpretation. Ancillary studies: Pancytokeratin: Positive E-cadherin: Positive SOX10: Negative Mart1: Negative D. LEFT BREAST IMPLANT, REMOVAL: - SEE GROSS DESCRIPTION BELOW (GROSS ONLY) at 1506 Synoptic Checklist Breast Biomarker Reporting Template Protocol posted: 01/25/2023REAST BIOMARKER REPORTING TEMPLATE - All Specimens Test(s) Performed Estrogen Receptor (ER) Status Positive (greater than 10% of cells demonstrate nuclear positivity) Percentage of Cells with Nuclear Positivity 91-100% Average Intensity of Staining Strong Test Type Food and Drug Administration (FDA) cleared (test / vendor): [employer] Primary Antibody SP1 Test(s) Performed Progesterone Receptor (PgR) Status Positive Percentage of Cells with Nuclear Positivity 71-80% Average Intensity of Staining Strong Test Type Food and Drug Administration (FDA) cleared (test / vendor): [employer] Primary Antibody 1E2 Test(s) Performed HER2 by Immunohistochemistry Negative (Score 1+) Test Type Food and Drug Administration (FDA) cleared (test / vendor): [employer] Primary Antibody 4B5 Cold Ischemia and Fixation Times Cannot be determined: Not fixation time recorded . 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 Clinical Indication: Recurrent right breast cancer. Contrast: Vueway 6.5 mL IV. Bilateral breast MRI was performed with a dedicated breast coil. Fat saturated T2 weighted and T1 weighted axial images were obtained of both breasts. Dynamic pre-and post contrast axial image sets were obtained of both breasts after intravenous injection of gadolinium based contrast. Delayed post contrast sagittal images were also obtained. Subtraction images and MIP images were generated. Interpretation was made in conjunction with CAD. The patient's prior imaging was reviewed. FINDINGS: There is mild bilateral background enhancement. Right Breast: There has been a right mastectomy with implant reconstruction. A right breast implant is in place with a small amount scattered areas of yeison-implant fluid. The patient is status post excision of a right axillary mass on 04/04/2024 which was found to represent an invasive carcinoma. There are no obvious enhancing masses or nonmass enhancement in the subcutaneous soft tissue of the right breast. In the axillary tail of the right breast, there is a large fluid collection with rim enhancement measuring approximately 6.7 x 5.7 cm. Findings likely represent a large postoperative seroma. While rim enhancement is likely related to postoperative changes, residual disease cannot be excluded. Postoperative changes are noted within the skin and underlying soft tissue. There is increased signal within the soft tissues along the right lateral chest wall compatible with edema. Left Breast: There is a left breast implant with small amount of periimplant fluid mostly posteriorly and inferiorly. There are postsurgical changes present along the inferior lateral aspect of the left breast There is no suspicious mass or non-mass enhancement in the left breast. Other: No axillary or internal mammary lymphadenopathy is appreciated. IMPRESSION: Large rim-enhancing fluid collection in the right axillary tail most likely related to a postoperative seroma. Residual disease cannot be excluded. No definite lymphadenopathy is seen. Bilateral postsurgical changes. No MRI evidence of malignancy in left breast. ASSESSMENT: Category 6 Known biopsy proven malignancy RECOMMENDATION: Follow Surgical Treatment Plan Right COMMENTS: Report Dictated on Electronically Signed By: Amparo Castro MD Electronically Signed Date/Time: 04/17/2024 1:34 PM EST Exam Date/Time: 04/22/2024 14:40 Procedure: CT CHEST ABDOMEN PELVIS W CONTRAST Ordering Provider: TERRY VICTORIA Reason For Exam: Breast cancer, invasive, stage IV, pre-therapy or re-staging EXAM: CT Chest, Abdomen and Pelvis With Intravenous Contrast CLINICAL INDICATION: Breast cancer, invasive, stage IV, pre-therapy or re-staging TECHNIQUE: Axial computed tomography images of the chest, abdomen and pelvis with intravenous contrast. This CT exam was performed using one or more of the following dose reduction techniques: automated exposure control, adjustment of the mA and/or kV according to patient size, and/or use of iterative reconstruction technique. COMPARISON: MRI from 04/17/2024. FINDINGS: CHEST: LUNGS: Moderate emphysematous changes in both lungs. Biapical scarring. No mass. No consolidation. PLEURAL SPACE: Unremarkable. No significant effusion. No pneumothorax. HEART: Coronary artery calcifications are present. No cardiomegaly. No significant pericardial effusion. ABDOMEN: LIVER: Mild extrahepatic biliary dilation with the upper common duct measuring up to 9 mm in diameter. No intrahepatic biliary dilation. GALLBLADDER AND BILE DUCTS: See above. PANCREAS: Unremarkable. No ductal dilation. No mass. SPLEEN: Unremarkable. No splenomegaly. ADRENALS: Unremarkable. No mass. KIDNEYS AND URETERS: Unremarkable. No hydronephrosis. No solid mass. STOMACH AND BOWEL: Diverticuli are noted throughout the hepatic flexure and sigmoid colon. No stenotic lesion, mucosal thickening or adjacent fat stranding is noted to suggest diverticulitis. No obstruction. PELVIS: APPENDIX: The appendix is not identified, however there is no pericecal fat stranding. BLADDER: Unremarkable. No mass. REPRODUCTIVE: Status post hysterectomy. CHEST, ABDOMEN and PELVIS: INTRAPERITONEAL SPACE: See below. BONES/JOINTS: Mild degenerative changes are present in the visualized spine. No acute fracture. SOFT TISSUES: Status post bilateral mastectomies and bilateral breast implants. Surgical clips are present in the right axilla. A surgical drain is present in the right axilla. The previously seen right axillary fluid collection has resolved. VASCULATURE: Ectatic ascending thoracic aorta measuring 3.9 cm. Atherosclerotic disease. LYMPH NODES: Unremarkable. No enlarged lymph nodes. IMPRESSION: 1. Postsurgical changes in the breasts and right axilla. Resolution of the previously seen right axillary fluid collection with a drainage catheter present. 2. No evidence of metastatic disease to the chest, abdomen or pelvis. 3. Mild extrahepatic biliary dilation with the upper common duct measuring up to 9 mm in diameter, indeterminate and may be due to senescent change but if there is any clinical evidence of biliary obstruction, MRCP or ERCP could be obtained. 4. Ectatic ascending thoracic aorta measuring 3.9 cm. 5. Colonic diverticulosis. Report Dictated on Electronically Signed By: Lemuel Cason MD Electronically Signed Date/Time: 04/23/2024 10:24 AM EDT Exam Date/Time: 04/22/2024 14:40 Procedure: CT SOFT TISSUE NECK W IV CONTRAST Ordering Provider: TERRY VICTORIA Reason For Exam: Neck mass, nonpulsatile EXAMINATION: CT SOFT TISSUE NECK W IV CONTRAST CLINICAL HISTORY: History of breast cancer. Neck mass and lymphadenopathy. COMPARISON: None TECHNIQUE: Thin axial images were obtained through the neck with intravenous contrast. 2D sagittal and coronal reconstructions were obtained from the axial data. Dose reduction was employed with automated exposure control. FINDINGS: Aerodigestive tract: The nasal cavities, naso-oropharynx, pharyngeal mucosal space, laryngeal structures and imaged infraglottic trachea are within normal limits. Lymph nodes: No pathologically enlarged, necrotic, or otherwise abnormal lymph nodes. Major salivary glands: Normal. Thyroid gland: Normal. Carotid space: Patent bilateral extracranial carotid and jugular systems. Paranasal sinuses, middle ears, mastoids: Left maxillary sinus opacification most likely due to chronic mucosal thickening. Otherwise clear. Brain and orbits: Probable chronic small vessel ischemic changes in the supratentorial white matter bilaterally. No visualized enhancing lesions. Bones: No fracture or aggressive osseous lesion. Lungs: Emphysematous changes bilaterally. Chest CT is separately reported. IMPRESSION: No neck mass or cervical lymphadenopathy. Report Dictated on Electronically Signed By: Khai Morales MD Electronically Signed Date/Time: 04/23/2024 2:01 PM EDT Exam Date/Time: 04/26/2024 09:10 Procedure: NM BONE WHOLE BODY Ordering Provider: TERRY VICTORIA Reason For Exam: Breast cancer, invasive, stage IV, pre-therapy or re-staging HISTORY: Breast cancer staging Delayed whole body imaging was performed in multiple projections following the intravenous administration of 23 mCi of technetium-99m MDP. Comparisons available: CT 04/22/2024 FINDINGS: Planar whole body imaging was performed in multiple projections. Mild increased uptake in the spine and joints is visualized, fairly typical for degenerative change. Some degenerative changes are evident on comparison imaging. No suspicious foci of moderate or marked increased uptake identified. IMPRESSION: Low likelihood ratio for metastatic disease to bone. Statistically benign findings only , fairly typical for degenerative changes with reasonable correlation to cross-sectional imaging. Report Dictated on Electronically Signed By: Jevon Win MD Electronically Signed Date/Time: 04/26/2024 2:17 PM EDT Review of Systems: Review of Systems Constitutional: Negative for appetite change, diaphoresis, fatigue, fever and unexpected weight change. HENT: Negative for trouble swallowing and voice change. Eyes: Negative for visual disturbance. Respiratory: Negative for apnea, cough, choking, shortness of breath and stridor. Cardiovascular: Negative for chest pain. Gastrointestinal: Positive for abdominal pain (intermittent RUQ pain). Endocrine: Negative for cold intolerance and heat intolerance. Musculoskeletal: Negative for arthralgias, joint swelling, myalgias and neck pain. Skin: Negative for color change and rash. Allergic/Immunologic: Negative for immunocompromised state. Neurological: Negative for dizziness, tremors, weakness, numbness and headaches. Hematological: Negative for adenopathy. Psychiatric/Behavioral: Negative for decreased concentration and dysphoric mood. The patient is not nervous/anxious. Past Medical History: Diagnosis Date Breast cancer (HCC) 2013 right breast approx 2014 Breast cancer (HCC) 03/2024 MVP (mitral valve prolapse) PVC's (premature ventricular contractions) Rheumatic fever Past Surgical History: Procedure Laterality Date APPENDECTOMY BREAST BIOPSY Right BREAST SURGERY Right LND BREAST SURGERY Right removal of implant, debridement, skin graft and fat transfer COLONOSCOPY EYE SURGERY Right excision benign tumor HYSTERECTOMY 1989 still have ovaries MASTECTOMY Right 07/2012 with sentinel lymph nose biopsy- Dr. Whitaker ORAL SURGERY, PROCEDURE (HISTORICAL) REVISION OF RECONSTRUCTED BREAST (HISTORICAL) N/A 04/02/2024 REVISION LEFT BREAST RECONSTRUCTION WITH IMPLANT EXCHANGE, ALLODERM, MASTOPEXY, EXPLORATION OF RIGHT AXILLA WITH EXCISION OF NEUROMA AND TARGETED MUSCLE REINNERVATION TONSILLECTOMY TUBAL LIGATION WISDOM TOOTH EXTRACTION Allergies Allergen Reactions Anastrozole Rash and Unknown Exemestane Diarrhea and Unknown Tamoxifen Rash and Unknown Letrozole Rash and Unknown BP 139/89 (BP Location: Left arm, Patient Position: Sitting) Pulse 63 Temp 36.2 C (97.1 F) Resp 12 Ht 5' 6 (1.676 m) Wt 150 lb (68 kg) BMI 24.21 kg/m Current Outpatient Medications on File Prior to Visit Medication Sig Dispense Refill acetaminophen (Tylenol) 500 MG tablet Take 1,000 mg by mouth every 6 hours as needed for mild pain (1-3). cyclobenzaprine (Flexeril) 10 MG tablet Take 10 mg by mouth every 8 hours as needed. diphenoxylate-atropine (Lomotil) 2.5-0.025 MG tablet Take 1 tablet by mouth every 6 hours as needed. DULoxetine (Cymbalta) [address] capsule TAKE 1 capsule by mouth once a day for 30 days take 30 mg for one week, the may increase to 60 mg a day meloxicam (Mobic) 15 MG tablet daily with supper. methocarbamol (Robaxin) 500 MG tablet Take 500 mg by mouth 3 times daily as needed for muscle spasms. naproxen (Naprosyn) 500 MG tablet Take 500 mg by mouth. cholestyramine (Questran) 4 g packet Take 4 g by mouth 3 times daily (with meals). ondansetron (Zofran) 4 MG tablet Take 1 tablet (4 mg) by mouth Daily as needed for nausea or vomiting. 20 tablet 0 No current facility-administered medications on file prior to visit. Physical Exam: Physical Exam Constitutional: Appearance: Normal appearance. She is normal weight. HENT: Head: Normocephalic and atraumatic. Eyes: Extraocular Movements: Extraocular movements intact. Conjunctiva/sclera: Conjunctivae normal. Pupils: Pupils are equal, round, and reactive to light. Cardiovascular: Rate and Rhythm: Normal rate and regular rhythm. Pulses: Normal pulses. Pulmonary: Effort: Pulmonary effort is normal. Breath sounds: Normal breath sounds. No stridor. Chest: Chest wall: No deformity, tenderness or edema. Breasts: Breasts are symmetrical. Right: Absent. No swelling, mass, skin change or tenderness. Left: No swelling, inverted nipple, mass, nipple discharge, skin change or tenderness. Musculoskeletal: General: No swelling, tenderness or deformity. Normal range of motion. Cervical back: Normal range of motion and neck supple. No rigidity or tenderness. Right lower leg: No edema. Left lower leg: No edema. Lymphadenopathy: Cervical: No cervical adenopathy. Right cervical: No superficial, deep or posterior cervical adenopathy. Left cervical: No superficial, deep or posterior cervical adenopathy. Upper Body: Right upper body: No supraclavicular, axillary or pectoral adenopathy. Left upper body: No supraclavicular, axillary or pectoral adenopathy. Skin: General: Skin is warm and dry. Coloration: Skin is not jaundiced or pale. Findings: No erythema, lesion or rash. Neurological: General: No focal deficit present. Mental Status: She is alert and oriented to person, place, and time. Motor: No weakness. Gait: Gait normal. Psychiatric: Mood and Affect: Mood normal. Behavior: Behavior normal. Thought Content: Thought content normal. Assessment: 1. Recurrent breast cancer, right (HCC) 2. H/O right mastectomy NCCN guidelines were discussed. Plan: Recommend radiation oncology for postmastectomy and regional LN radiation ( has seen Dr. Salomon locally) AI therapy per Dr. Mackey She can continue her oncologic FU [place] Can see us here prn Breast Cancer Surveillance: History and physical exam 1-4 times per year for 5 years, then annually Mammography every 12 months (routine imaging of reconstructed breast is not indicated) For women on tamoxifen: annual gynecologic assessment every 12 mo if uterus present For women on aromatase inhibitor: Monitoring of bone density at baseline and periodically thereafter Encouraged physical activity, healthy diet, limiting alcohol intake, and achieving and maintaining a healthy body weight Culturally appropriate shared decision making was used to determine optimal course of workup and treatment for this patient. Patient demonstrates understanding of and agreement with the above plan of care. All questions have been answered to her satisfaction. Radha Terry MD 05/03/2024 Please disregard any typographical errors. This note was dictated using voice recognition software. documented in this encounter [facility] 05-01-2024 History of Present illness Narrative Diagnosis: 1) Breast cancer. HPI: The patient is a 63 yo female who appreciated a mass in her right breast in 11/2011. She thought it may have been a cyst as she had one in the past. Her mother had been on hospice at the time for end stage CHF/Alzheimer's disease. She sought care when thought it was enlarging in April 2012. Was seen by a senior sales manager who ordered a mammogram with ultrasound. The studies completed May 22, 2012 demonstrated a 1 x 1 x 1.3 cm hypoechoic irregular mass at the 11:00 position of the right breast in the retroareolar region on ultrasound which corresponded to an abnormality on bilateral diagnostic mammogram. Was referred to Dr. Ayala who performed a US guided biopsy 05/30/12. Pathology significant for an invasive ductal carcinoma, nuclear grade 2, with micropapillary features (see comment). - Lymphovascular invasion is identified. ER/SC both >95% and HER2(ERBB2) gene amplification is absent by FISH. Because patient had previous breast augmentation, was referred to Dr. Whitaker and Shauna. Underwent right skin-sparing mastectomy and sentinel node biopsy and immediate replacement of implant 07/19/12. Pathology: 1. Right sentinel lymph node #1, biopsy (A) - Metastatic carcinoma involving one lymph node (02/13); metastasis measures 0.6 cm in greatest dimension; with focal extranodal extension identified. 2. Right sentinel lymph node #2, biopsy (B) - One lymph node, negative for malignancy (0/1). 3. Right breast, skin-sparing mastectomy (C) - Invasive ductal carcinoma, Bartlett-Damico grade III (see comment). - Ductal carcinoma in situ, high nuclear grade, solid type with comedo necrosis and microcalcifications. - Atypical ductal hyperplasia. - Fibrocystic change including stromal fibrosis. - Biopsy site reparative changes and biopsy clips x3. 4. Right breast, implant, removal (D) -Breast implant (gross examination only). Tumor Size: (Size of Largest Invasive Carcinoma) Greatest dimension of largest focus of invasion over 0.1 cm: 1.8 cm Tumor Focality: Single focus of invasive carcinoma Extent of Tumor: Skin: Negative for neoplasm. Nipple: Negative for neoplasm Chest wall: No skeletal muscle is present in the specimen Margins: Invasive carcinoma: Negative Closest margin: Invasive carcinoma is present 0.9 cm from the deep margin of resection DCIS: Negative Closest margin: Ductal carcinoma in situ is present 1 cm from the deep margin of resection Histologic Type of Invasive Carcinoma: Ductal Histologic Grade: Glandular (Acinar)/Tubular Differentiation: 3 Nuclear Grade: 3 Mitotic Rate: 2 Overall Bartlett Damico Grade: III Lymph-Vascular Invasion: Present Ductal Carcinoma In Situ (DCIS): DCIS is present Type: Solid Nuclear Grade: 3 Necrosis: Comedo type Lymph Nodes: (required only if lymph nodes are present in the specimen) Number of sentinel lymph nodes examined: 2 Total number of lymph nodes examined (sentinel and nonsentinel): 2 Number of lymph nodes with macrometastases (>0.2 cm): 1 Number of lymph nodes with micrometastases (>0.2 mm to 0.2 cm and/or >200cells): 0 Number of lymph nodes with isolated tumor cells (less than or equal to 0.2 mm and less than or equal to 200 cells): 0 Number of lymph nodes without tumor cells identified: 1 Size of largest metastatic deposit (if present): 0.6 cm Extranodal Invasion: Present Amount: 0.8 mm Apparently initial specimens were negative for lara involvement (specimen improperly collected in OR), but final path showed tumor presence. Underwent subsequent ALND 07/31/12--Right axillary contents, axillary dissection (A) - Four lymph nodes, negative for metastatic carcinoma (0/4); AJCC stage pN0 Enrolled in [place]. Recurrence sore of 12 (8% average rate of distant recurrence). Randomized to AI therapy. Started exemestane 10/23/12. Couldn't get financial assistance for anastrozole. Underwent evaluation for diarrhea that started soon after beginning exemestane. Repeat colonoscopy with histologic evidence lymphocytic colitis. Patient however continued exemestane as it wasn't clear that it caused the lymphocytic colitis. Self d/c'ed exemestane in May 2013. Diarrhea significantly slowed and she had a two week period of formed stool with BM daily in am. Started Aromasin again and diarrhea started again. Stopped Aromasin after 9 days. Previous therapy: 1) Exemestane 10/2012-05/2013. Stopped due to diarrhea. 2) Letrozole 08/2013-08/2014. Stopped due to angioedema of the lips. 3) Tamoxifen. 09/2014-01/2015. Stopped due to recurrent angioedema. 4) Anastrozole. 5) Raloxifene started 06/2015. Stopped due to diarrhea. Current therapy: 1) None. Saw plastic surgeon to get reconstruction adjusted. 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 Pathology: A. LEFT BREAST TISSUE, EXCISION: - BENIGN BREAST TISSUE WITH FOCAL APOCRINE METAPLASIA AND UNREMARKABLE SKIN B. LYMPH NODES, RIGHT AXILLARY, EXCISION: - METASTATIC DUCTAL CARCINOMA (ISOLATED TUMOR CELLS) IN ONE OUT OF TWO LYMPH NODES (1/2) Ancillary studies: Pancytokeratin: Positive for ITCs C. 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 The patient's history of breast cancer is noted. The tumor measures 1.2 cm in greatest dimension and extends to all the peripheral cauterized aspects of the specimen. The clinician was notified of the above diagnosis on 04/04/2024. This part of this case was reviewed by Dr. Gonzalez who concurs with the above interpretation. Ancillary studies: Pancytokeratin: Positive E-cadherin: Positive SOX10: Negative Mart1: Negative D. LEFT BREAST IMPLANT, REMOVAL: - SEE GROSS DESCRIPTION BELOW (GROSS ONLY) Synoptic Checklist Breast Biomarker Reporting Template BREAST BIOMARKER REPORTING TEMPLATE - All Specimens Protocol posted: 01/25/2023 Test(s) Performed: Estrogen Receptor (ER) Status: Positive (greater than 10% of cells demonstrate nuclear positivity) Percentage of Cells with Nuclear Positivity: 91-100% Average Intensity of Staining: Strong Test Type: Food and Drug Administration (FDA) cleared (test / vendor): [employer] Primary Antibody: SP1 Test(s) Performed: Progesterone Receptor (PgR) Status: Positive Percentage of Cells with Nuclear Positivity: 71-80% Average Intensity of Staining: Strong Test Type: Food and Drug Administration (FDA) cleared (test / vendor): [employer] Primary Antibody: 1E2 Test(s) Performed: HER2 by Immunohistochemistry: Negative (Score 1+) Emergent appendectomy 12/2023. Diarrhea since then. Colestipol works to control it. Without it, 3-4 urgent episodes watery diarrhea a day. PAST MEDICAL HISTORY Diagnosis Date Abnormal uterine bleeding (AUB) 2001 Hysterectomy Breast cancer (HCC) 03/06/2017 Lump or mass in breast left breast Malignant neoplasm of right breast in female, estrogen receptor positive (HCC) 03/06/2017 Mitral valve prolapse PVC (premature ventricular contraction) Smoker Supraventricular tachycardia (HCC) 11/23/2020 PAST SURGICAL HISTORY Procedure Laterality Date AXILLARY LYMPHADENECTOMY 07/31/2012 right axilla BREAST AUGMENTATION W/PROSTHETIC IMPLANT 1999 BREAST BIOPSY CORE 05/30/2012 right breast BREAST BIOPSY CORE 06/06/2012 right breast BREAST RECONSTRUCTION 07/19/2012 right breast single step implant CARPAL TUNNEL Bilateral wrists COLONOSCOPY FLX DX W/COLLJ SPEC WHEN PFRMD 01/01/2013 Normal colonoscopy-5 year followup - family history COLONOSCOPY FLX DX W/COLLJ SPEC WHEN PFRMD 05/08/2013 Colonoscopy EGD TRANSORAL BIOPSY SINGLE/MULTIPLE 01/01/2013 gastritis FNA UNDER GUIDANCE 06/06/2012 right breast by ultrasound INCISE FINGER TENDON SHEATH Right 09/18/2019 Right trigger thumb release LIG/TRNSXJ FLP TUBE ABDL/VAG APPR UNI/BI 1984 MASTECTOMY, SIMPLE, COMPLETE 07/19/2012 right breast with SLND PAST SURGICAL HISTORY OF oral surgery PAST SURGICAL HISTORY OF removal of pingula left eye TONSILLECTOMY HX VAGINAL HYSTERECTOMY UTERUS 250 GM/< 2002 AUB, possible abnormal pap prior to hysterectomy ALLERGIES Allergen Reactions Arimidex [Anastrozo* Rash Aromasin [Exemestan* Diarrhea Tamoxifen Rash Letrozole Rash Current Outpatient Medications Medication Sig methocarbamol (ROBAXIN) 750 mg tablet Take 750 mg by mouth three times a day as needed. colestipol (COLESTID) 1 gram tablet Take 2 tablets by mouth daily at bedtime. acetaminophen (TYLENOL EXTRA STRENGTH) 500 mg tablet Take 1,000 mg by mouth every 8 hours as needed. ibuprofen (MOTRIN) 200 mg tablet Take 400 mg by mouth every 8 hours as needed. biotin 1 mg cap Take 1 capsule by mouth once daily. fluocinonide (LIDEX) 0.05 % cream Apply to affected area two times a day as needed (for areas of rash, limit to not more than 2 weeks use at a time.). multivit-min/vit C/herb no.124 (AIRBORNE GUMMY ORAL) Take by mouth. (Patient not taking: Reported on 04/17/2024) No current facility-administered medications for this visit. Family History Problem Relation Age of Onset Anesthesia Father Macular Degen Father other (Other) Father Colon Cancer Father 60 Skin Cancer Father Allergies Mother Heart Mother Hypertension Mother Stroke Mother Hypertension Sister Blindness Sister Lymphoma Sister Allergies Sister other (non-hodgkins lymphoma) Sister other (Jim-Rochester Syndrome) Sister Heart Attack Brother 57 other (Leukemia) Paternal Aunt Colon Cancer Paternal Uncle dx 70's other (Leukemia) Paternal Uncle Breast Cancer Other maternal aunt, in her 60's Prostate Cancer Other paternal cousin Cancer Other paternal first cousin dx lacrimal sac tumor d. 25 Cancer Other /paternal first cousin dx tumor size of cabbage on chest wall ROS: Constitutional: Denies episodes of fever. Neuro: Denies CORONADO, vertigo, dizziness and imbalance. Denies symptoms of neuropathy. HEENT: No recent change in voice, vision or hearing. Resp: Denies cough, wheeze and hemoptysis. Denies shortness of breath at rest. CVS: Denies exertional chest pain, PND, orthopnea and LE edema. GI: Denies dysgeusia. Denies symptoms of stomatitis. Denies dysphagia and odynophagia. : See above. Endo: Denies hot flashes. Denies polyuria and polydipsia. Denies heat and cold intolerance. Musculoskeletal: See above. Derm: Denies rash. Denies jaundice and diffuse pruritis. Heme: Denies unusual bleeding and unexplained bruising. Psych: Normal mood. PHYSICAL EXAM: Vitals: Blood pressure 142/100, pulse 65, temperature 36.5 C (97.7 F), temperature source Temporal, weight 69.4 kg (153 lb), SpO2 100%. Well-appearing and in no acute distress. EYES: Sclerae are anicteric bilaterally. ABD: Abdomen is nondistended. Extremities: Free of edema. SKIN: No rash. Genetic testing: Per record at [facility] 04/29/2024 no mutations or variants of undetermined significance and 36 genes analyzed. 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 -Originally declined radiation. -Resected axillary recurrence. -Reviewed CT and bone scan findings. NEHA. -Discussed rationale for radiation and endocrine therapy. She had angioedema previously with both letrozole and tamoxifen. Exemestane caused diarrhea. However colonoscopy in 2013 demonstrated normal colonic mucosa but biopsy showed lymphocytic infiltration without evidence of collagenous colitis. She continues to have chronic diarrhea somewhat controlled with the use of colestipol. I discussed and recommended repeat colonoscopy with random biopsies when she completes radiation. If evidence of true lymphocytic colitis then would treat with budesonide and reinitiate exemestane. Plan: -Send slides of original breast cancer surgical specimen to [facility]. -Referral to Dr. Ayala for colonoscopy (after RT). -OV in about 8 weeks. Portions of this documentation were copied and pasted from my previous office visit note dated 04/16/2024 in order to provide a cohesive continuity of the history. The note has been reviewed and edited and updated as necessary. I spent a total of 40 minutes on the date of the service which included preparing to see the patient, [id number] patient care, completing clinical documentation, obtaining and/or reviewing separately obtained history, counseling and educating the patient/family/caregiver, ordering medications, tests, or procedures, communicating with other HCPs (not separately reported), and communicating results to the patient/family/caregiver. Michael Mackey DO documented in this encounter [facility] 05-01-2024 Note [facility] 05-01-2024 Note [facility] 05-01-2024 History of Present illness Narrative Radiation Oncology - New Patient/Consult Note PATIENT NAME: Shakira Franklin PATIENT REQUESTING PROVIDER: Michael Mackey DIAGNOSIS: Regional recurrence of right breast cancer s/p right axillary excision on 04/02/24. It was ER positive (91-100%, strong), SC positive (71-80%, strong) and Her2 negative. 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 1/6 node positive with extranodal extension HPI: 63 year old female who presents with above diagnosis, for an opinion regarding the role of radiation therapy in the management of the patient's disease. Final recommendations will be communicated back to the requesting physician by way of the shared medical record, or letter to requesting physician via US mail. 63 year old woman initially diagnosed with pathological stage IB, pT1c pN1, grade 3 invasive ductal carcinoma of the right breast in 2012 treated with modified radical mastectomy and right axillary node dissection. She had 1/6 node positive with extranodal extension. She was then treated with hormonal therapy. She was found to have right axillary node recurrence incidentally when her plastic surgeon adjusted her reconstruction this year. There was a nodule in the right axilla which was thought to be neuroma. She underwent right axillary excision on 04/02/24. Pathology showed invasive mammary carcinoma measuring 1.2 cm extending to all the peripheral cauterized aspects. 1/2 right axillary node had isolated tumor cells. It was ER positive (91-100%, strong), SC positive (71-80%, strong) and Her2 negative. Of note, left breast tissue excision at the time of implant replacement showed benign findings. MRI breasts on 04/17/24 showed large rim-enhancing fluid collection in the right axillary tail most likely related to a postoperative seroma. Residual disease cannot be excluded. No definite lymphadenopathy is seen. No MRI evidence of malignancy in left breast. CT C/A/P on 04/22/24 showed no evidence of metastatic disease to the chest, abdomen or pelvis. CT neck on 04/22/24 showed no neck mass or cervical lymphadenopathy. Bone scan on 04/26/24 showed Low likelihood ratio for metastatic disease to bone. ALLERGIES Allergen Reactions Arimidex [Anastrozo* Rash Aromasin [Exemestan* Diarrhea Tamoxifen Rash Letrozole Rash Current Outpatient Medications on File Prior to Visit Medication Sig methocarbamol (ROBAXIN) 750 mg tablet Take 750 mg by mouth three times a day as needed. colestipol (COLESTID) 1 gram tablet Take 2 tablets by mouth daily at bedtime. acetaminophen (TYLENOL EXTRA STRENGTH) 500 mg tablet Take 1,000 mg by mouth every 8 hours as needed. ibuprofen (MOTRIN) 200 mg tablet Take 400 mg by mouth every 8 hours as needed. biotin 1 mg cap Take 1 capsule by mouth once daily. fluocinonide (LIDEX) 0.05 % cream Apply to affected area two times a day as needed (for areas of rash, limit to not more than 2 weeks use at a time.). multivit-min/vit C/herb no.124 (AIRBORNE GUMMY ORAL) Take by mouth. (Patient not taking: Reported on 04/17/2024) No current facility-administered medications on file prior to visit. PAST MEDICAL HISTORY Diagnosis Date Abnormal uterine bleeding (AUB) 2002 Hysterectomy Breast cancer (HCC) 03/06/2017 Lump or mass in breast left breast Malignant neoplasm of right breast in female, estrogen receptor positive (HCC) 03/06/2017 Mitral valve prolapse PVC (premature ventricular contraction) Smoker Supraventricular tachycardia (HCC) 11/23/2020 Prior radiation therapy, collagen vascular disease, or inflammatory bowel disease: No Any implanted or external electric devices? No status: Post-menopausal. PAST SURGICAL HISTORY Procedure Laterality Date AXILLARY LYMPHADENECTOMY 07/31/2012 right axilla BREAST AUGMENTATION W/PROSTHETIC IMPLANT 1999 BREAST BIOPSY CORE 05/30/2012 right breast BREAST BIOPSY CORE 06/06/2012 right breast BREAST RECONSTRUCTION 07/19/2012 right breast single step implant CARPAL TUNNEL Bilateral wrists COLONOSCOPY FLX DX W/COLLJ SPEC WHEN PFRMD 01/01/2013 Normal colonoscopy-5 year followup - family history COLONOSCOPY FLX DX W/COLLJ SPEC WHEN PFRMD 05/08/2013 Colonoscopy EGD TRANSORAL BIOPSY SINGLE/MULTIPLE 01/01/2013 gastritis FNA UNDER GUIDANCE 06/06/2012 right breast by ultrasound INCISE FINGER TENDON SHEATH Right 09/18/2019 Right trigger thumb release LIG/TRNSXJ FLP TUBE ABDL/VAG APPR UNI/BI 1984 MASTECTOMY, SIMPLE, COMPLETE 07/19/2012 right breast with SLND PAST SURGICAL HISTORY OF oral surgery PAST SURGICAL HISTORY OF removal of pingula left eye TONSILLECTOMY HX VAGINAL HYSTERECTOMY UTERUS 250 GM/< 2002 AUB, possible abnormal pap prior to hysterectomy FAMILY HISTORY Problem Relation Age of Onset Anesthesia Father Macular Degen Father other (Other) Father Colon Cancer Father 60 Skin Cancer Father Allergies Mother Heart Mother Hypertension Mother Stroke Mother Hypertension Sister Blindness Sister Lymphoma Sister Allergies Sister other (non-hodgkins lymphoma) Sister other (Jim-Echo Syndrome) Sister Heart Attack Brother 57 other (Leukemia) Paternal Aunt Colon Cancer Paternal Uncle dx 70's other (Leukemia) Paternal Uncle Breast Cancer Other maternal aunt, in her 60's Prostate Cancer Other paternal cousin Cancer Other paternal first cousin dx lacrimal sac tumor d. 25 Cancer Other /paternal first cousin dx tumor size of cabbage on chest wall Social History Tobacco Use Smoking status: Former Current packs/day: 0.00 Average packs/day: 0.5 packs/day for 12.0 years (6.0 ttl pk-yrs) Types: Cigarettes Start date: 08/31/2009 Quit date: 08/31/2021 Years since quittin.6 Smokeless tobacco: Never Tobacco comments: relapsed 10/2020 Vaping Use Vaping status: Never Used Substance Use Topics Alcohol use: Yes Comment: once a month, 1 drink Drug use: Not Currently Comment: History of remote cocaine use(as young adult) COMPLETE REVIEW OF SYSTEMS: GENERAL: feeling well without fatigue, no recent change in weight HEENT: denies CORONADO, change in hearing or vision, no other ENT complaints NECK: denies pain in neck RESPIRATORY: no cough, no wheezing or shortness of breath CARDIOVASCULAR: no chest pain, no palpitations GI: chronic diarrhea : urination is normal MUSCULOSKELETAL: denies any painful or swollen joints, no muscle aches SKIN: no rash HEMATOLOGY/LYMPHOLOGY: negative for prolonged bleeding, no swollen lymph nodes NEURO: no numbness or paresthesias and no weakness of the extremities PHYSICAL EXAM: VS: BP 142/100 Pulse 65 Temp 36.5 C (97.7 F) (Temporal) SpO2 100% KPS: 90 General Appearance: Alert and oriented. No acute distress. HEENT: NCAT. Sclera anicteric. EOMI. Neck: Normal ROM. Chest: No respiratory distress. Breasts: s/p bilateral mastectomy and implant reconstruction. Drainage placed in the right axilla. Musculoskeletal: No edema. Normal ROM in extremities. Neuro: Speech fluent. Gait normal. No focal deficits. Skin: No rashes noted Hematologic: No signs of active bleeding. RADIOLOGY/LABORATORY DATA: see HPI ASSESSMENT AND PLAN: 63 year old woman with regional recurrence of right breast cancer s/p right axillary excision on 04/02/24. It was ER positive (91-100%, strong), SC positive (71-80%, strong) and Her2 negative. 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 1/6 node positive with extranodal extension. Staging scan showed no evidence of distant metastasis. I recommend radiation treatment to the right chest wall/axilla/supraclavicular region and internal mammary region to improve local/regional control. I explained the rationale, benefits, alternative management options and potential complications of radiation treatment to the patient and she understands and agrees to proceed. It was explained and understood that other personnel such as radiation therapists, monkey keeper, and physicists will participate in planning and delivery of radiation treatment. Permanent tattoo phillips will be placed to aid with positioning for daily treatment and the patient consented. Patient will have a simulation procedure after she heals from surgery. Thank you very much for allowing us to participate in her care. Signed by: Liz Salomon MD cc: Christiano Wooten [address] [place] [address] Michael Mackey [address] [facility] [id number] Radiation Therapy - Nursing Note (Consult) PATIENT NAME: Shakira Franklin PATIENT May 01, 2024 [facility] FACILITY/LOCATION: [place] Chief Complaint: recurrent right breast cancer Reason for visit: Consult. Referring physician: Internal provider Dr Mackey Subjective Data: still some post op pain related to drain still in Additional Data Do you want to see a Sole Stainer? No Are you interested in information about fertility? No Status: Post-menopausal Stress Scale: On a scale of 0 to 10, what number best describes how much distress you have experienced in the past week?(0 being no distress and 10 being extreme distress) 7 Social work notified: Pt denied need to see social media content specialist at this time. SIGNED by: Jania Barnes RN documented in this encounter [facility] 05-01-2024 Note [facility] 04-29-2024 Telephone encounter Note Called pt with Results of genetics. Scanned into media and routed to [facility] providers. [facility] 04-29-2024 Miscellaneous Notes Called pt with Results of genetics. Scanned into media and routed to [facility] providers. Called patient with results of bone scan. Per [employer] portal, estimated date results of BRCA panel will be back is 04/28/2024. Patient aware we will call with these results as soon as they are available. She sees Dr. Terry 05/03/2024. She verbalized understanding agrees with plan. documented in this encounter [facility] 04-29-2024 Telephone encounter Note Spoke to patient regarding genetic testing results which were negative, meaning there were no mutations or VUS in the 36 genes analyzed. Reminded of follow up appointment on 05/03/2024 Patient agrees with the plan and verbalizes understanding. Copy of report mailed to patient. Sent results via [employer] as well. Scanned into media and routed to [facility] providers. [facility] 04-29-2024 Miscellaneous Notes Spoke to patient regarding genetic testing results which were negative, meaning there were no mutations or VUS in the 36 genes analyzed. Reminded of follow up appointment on 05/03/2024 Patient agrees with the plan and verbalizes understanding. Copy of report mailed to patient. Sent results via [employer] as well. Scanned into media and routed to [facility] providers. documented in this encounter [facility] 04-26-2024 Telephone encounter Note Called patient with results of bone scan. Per [employer], estimated date results of BRCA panel will be back is 04/28/2024. Patient aware we will call with these results as soon as they are available. She sees Dr. Terry 05/03/2024. She verbalized understanding agrees with plan. [facility] [employer] Work Phone: 04-26-2024 Miscellaneous Notes Called patient with results of bone scan. Per [employer], estimated date results of BRCA panel will be back is 04/28/2024. Patient aware we will call with these results as soon as they are available. She sees Dr. Terry 05/03/2024. She verbalized understanding agrees with plan. documented in this encounter [facility] 04-17-2024 History of Present illness Narrative Images from the original note were not included. Berny Johnson ACID TREATER 04/17/2024 at 9:39 AM Breast Center [facility] [address] [facility] [address] [facility] [address] Dept: [phone] Dept Loc: [phone] Shakira Franklin is a 63 y.o. F here for genetic counseling. HPI Breast History: 1. Patient is here for genetic counseling. 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 Cazares. He investigated her right axillary pain further and removed a neuroma and found a + lymph node for cancer. She now has right breast cancer reoccurrence form 2012. Her daughter is present for her OV today. 2. Family history of breast cancer: Self age 54, age 65. Family history of ovarian, pancreatic, or prostate cancer: none Family history of Babin-syndrome related cancers: Father colon cancer and skin cancer age 86 Prior personal or family history of genetic testing:none She does meet NCCN criteria for genetic testing for hereditary cancer. Risk Factors: Menarche: age 13 Age of first : age 14, Menopause: age 29 with hysterectomy does have both ovaries Weight: BMI 24.69 kg/m2 Smoking: former o.5 ppd cigarette smoker x 20 years quit in 2019 ETOH: 1 drink per week Family History of Cancer and Cancer Risk Assessment : Self breast cancer age 52 and age 65 Father colon cancer age 86 Sister lymphoma Maternal aunt unknown cancer Maternal uncle lung cancer Maternal uncle throat cancer Paternal aunt unknown cancer Paternal uncle unknown cancer Paternal uncle unknown cancer Paternal uncle leukemia Paternal cousin (male) unknown cancer The patient's medical history, reproductive history, breast history and family history have been reviewed. Using [employer] software, the family genogram has been generated and reviewed. A complete risk assessment has been performed using validated statistical models. The estimated risk of a BRCA 1/2 mutation predicted by BRCAPRO is 2.42 %. The estimated risk of a mutation in an HNPCC related gene is 0.42 %. The patient does meet NCCN criteria for genetic testing for hereditary cancer. Medical History includes: has a past medical history of Breast cancer (HCC) (2012), Breast cancer (HCC) (03/2024), MVP (mitral valve prolapse), PVC's (premature ventricular contractions), and Rheumatic fever. Surgical History includes : Past Surgical History: Procedure Laterality Date APPENDECTOMY BREAST BIOPSY Right BREAST SURGERY Right LND BREAST SURGERY Right removal of implant, debridement, skin graft and fat transfer COLONOSCOPY EYE SURGERY Right excision benign tumor HYSTERECTOMY 1989 still have ovaries MASTECTOMY Right 07/2012 with sentinel lymph nose biopsy- Dr. Whitaker ORAL SURGERY, PROCEDURE (HISTORICAL) REVISION OF RECONSTRUCTED BREAST (HISTORICAL) N/A 04/02/2024 REVISION LEFT BREAST RECONSTRUCTION WITH IMPLANT EXCHANGE, ALLODERM, MASTOPEXY, EXPLORATION OF RIGHT AXILLA WITH EXCISION OF NEUROMA AND TARGETED MUSCLE REINNERVATION TONSILLECTOMY TUBAL LIGATION WISDOM TOOTH EXTRACTION Medications include: Current Outpatient Medications Medication Sig Dispense Refill acetaminophen (Tylenol) 500 MG tablet Take 1,000 mg by mouth every 6 hours as needed for mild pain (1-3). cholestyramine (Questran) 4 g packet Take 4 g by mouth 3 times daily (with meals). cyclobenzaprine (Flexeril) 10 MG tablet Take 10 mg by mouth every 8 hours as needed. diphenoxylate-atropine (Lomotil) 2.5-0.025 MG tablet Take 1 tablet by mouth every 6 hours as needed. DULoxetine (Cymbalta) [address] capsule TAKE 1 capsule by mouth once a day for 30 days take 30 mg for one week, the may increase to 60 mg a day meloxicam (Mobic) 15 MG tablet daily with supper. methocarbamol (Robaxin) 500 MG tablet Take 500 mg by mouth 3 times daily as needed for muscle spasms. naproxen (Naprosyn) 500 MG tablet Take 500 mg by mouth. ondansetron (Zofran) 4 MG tablet Take 1 tablet (4 mg) by mouth Daily as needed for nausea or vomiting. 20 tablet 0 No current facility-administered medications for this visit. Allergies include: Allergies as of 04/17/2024 - Reviewed 04/17/2024 Allergen Reaction Noted Anastrozole Rash and Unknown 02/18/2015 Exemestane Diarrhea and Unknown 07/10/2013 Tamoxifen Rash and Unknown 02/18/2015 Letrozole Rash and Unknown 03/06/2017 Review of Systems Constitutional: Negative. Negative for chills, diaphoresis and fever. Respiratory: Negative. Cardiovascular: Negative. Gastrointestinal: Negative. Negative for constipation, diarrhea, nausea and vomiting. Genitourinary: Negative. Musculoskeletal: Negative. Negative for arthralgias and joint swelling. Skin: Negative. Negative for rash. Neurological: Negative. Negative for dizziness. Psychiatric/Behavioral: Negative. BP (!) 148/82 (BP Location: Left arm, Patient Position: Sitting, BP Cuff Size: Adult) Pulse 100 Temp 36.6 C (97.8 F) (Temporal) Ht 5' 6 (1.676 m) Wt 154 lb (69.9 kg) BMI 24.86 kg/m Physical Exam Constitutional: Appearance: Normal appearance. HENT: Head: Normocephalic and atraumatic. Pulmonary: Effort: Pulmonary effort is normal. Chest: Breasts: Breasts are symmetrical. Right: No swelling, bleeding, inverted nipple, mass, nipple discharge or skin change. Left: No swelling, bleeding, inverted nipple, mass, nipple discharge or skin change. Musculoskeletal: General: No deformity. Cervical back: Normal range of motion and neck supple. Right lower leg: No edema. Left lower leg: No edema. Lymphadenopathy: Cervical: No cervical adenopathy. Upper Body: Right upper body: No supraclavicular, axillary or pectoral adenopathy. Left upper body: No supraclavicular, axillary or pectoral adenopathy. Skin: General: Skin is warm and dry. Neurological: Mental Status: She is alert and oriented to person, place, and time. Mental status is at baseline. Psychiatric: Mood and Affect: Mood normal. Behavior: Behavior normal. Assessment/Plan: Diagnoses and all orders for this visit: Genetic testing This is a 63 y.o. woman who meets HBOC criteria based on her family history of self with reoccurrence of breast cancer. - An extended visit was carried out for analysis of family history, pedigree construction, discussion of genetic principles and familial cancer patterns. The patient received counseling about the risks, benefits, and limitations of genetic analysis. We reviewed options for management of increased cancer risk including high risk surveillance, surgical intervention, and chemo prevention options. - We discussed the process of testing, which genes are tested, possible results and their implications for management, [place] law, notifying relatives if a pathogenic mutation is found, cascade testing for blood relatives, and post counseling if a pathogenic mutation was found. - The patient expressed understanding of the information provided and decided to proceed with genetic testing. She signed consent for genetic testing. - I have reviewed this chart and this patient does meet NCCN criteria for genetic testing. The patient has been given the opportunity to ask questions. - We did discuss that [facility] will prior Auth the blood draw for genetics. Generally it is covered at $0-$100. If it goes over $100 the maximum [id number] would be $250 and if this occurs [facility] will call her and let her know before they proceed with the testing and she can choose to cancel at that time. If she does not answer the call and does not call them back they will run the test and charged the full $250. - Genetics-Call with results With patient's new diagnosis discussed that we would be running the BRCA plus analysis along with the full genetics. The BRCA plus analysis covers the 8 highest risk for breast cancer genes. This testing will return in 7 to 10 days and this will help guide treatment planning. To the rest the panel will return at 2 to 4 weeks. We will call patient once we get the results. - Call with any questions or breast concerns - Encourage self breast awareness and SBE's Recurrent breast cancer, right (HCC) - original breast cancer diagnosed at age 52 in 2013. She was treated at the [facility]. I spent 30 minutes total on the day of the visit obtaining history, reviewing imaging and laboratory results, performing a physical exam and providing patient education and counseling and documenting. Culturally appropriate shared decision making was used to determine optimal course of workup and treatment for this patient. CHAS Roach CNP 04/17/24 Please disregard any typographical errors. This note was dictated using voice recognition software. Genetics paperwork signes. left AC prepped with alcohol after tourniquet applied. #23F butterfly needle used to access vein on first attempt. 2 vials of blood were drawn. Tourniquet removed and needle retracted. Direct pressure applied to venipuncture site until bleeding stopped. Band aid applied to site. Patient tolerated procedure without problems. documented in this encounter [facility] 04-17-2024 Miscellaneous Notes Pls call pt with results MRI showed seroma ( fluid collection right axilla)- needs FU with Dr. Cazares No obvious other masses Waiting for additional studies to return documented in this encounter [facility] 04-17-2024 Progress note Formatting of t his note might be different from the original. Pls call pt with results MRI showed seroma ( fluid collection right axilla)- needs FU with Dr. Cazares No obvious other masses Waiting for additional studies to return [facility] 04-16-2024 History of Present illness Narrative Diagnosis: 1) Breast cancer. HPI: The patient is a 63 yo female who appreciated a mass in her right breast in 11/2011. She thought it may have been a cyst as she had one in the past. Her mother had been on hospice at the time for end stage CHF/Alzheimer's disease. She sought care when thought it was enlarging in April 2012. Was seen by a senior sales manager who ordered a mammogram with ultrasound. The studies completed May 22, 2012 demonstrated a 1 x 1 x 1.3 cm hypoechoic irregular mass at the 11:00 position of the right breast in the retroareolar region on ultrasound which corresponded to an abnormality on bilateral diagnostic mammogram. Was referred to Dr. Ayala who performed a US guided biopsy 05/30/12. Pathology significant for an invasive ductal carcinoma, nuclear grade 2, with micropapillary features (see comment). - Lymphovascular invasion is identified. ER/SC both >95% and HER2(ERBB2) gene amplification is absent by FISH. Because patient had previous breast augmentation, was referred to Dr. Whitaker and Isakov. Underwent right skin-sparing mastectomy and sentinel node biopsy and immediate replacement of implant 07/19/12. Pathology: 1. Right sentinel lymph node #1, biopsy (A) - Metastatic carcinoma involving one lymph node (02/13); metastasis measures 0.6 cm in greatest dimension; with focal extranodal extension identified. 2. Right sentinel lymph node #2, biopsy (B) - One lymph node, negative for malignancy (0/). 3. Right breast, skin-sparing mastectomy (C) - Invasive ductal carcinoma, Bartlett-Damico grade III (see comment). - Ductal carcinoma in situ, high nuclear grade, solid type with comedo necrosis and microcalcifications. - Atypical ductal hyperplasia. - Fibrocystic change including stromal fibrosis. - Biopsy site reparative changes and biopsy clips x3. 4. Right breast, implant, removal (D) -Breast implant (gross examination only). Tumor Size: (Size of Largest Invasive Carcinoma) Greatest dimension of largest focus of invasion over 0.1 cm: 1.8 cm Tumor Focality: Single focus of invasive carcinoma Extent of Tumor: Skin: Negative for neoplasm. Nipple: Negative for neoplasm Chest wall: No skeletal muscle is present in the specimen Margins: Invasive carcinoma: Negative Closest margin: Invasive carcinoma is present 0.9 cm from the deep margin of resection DCIS: Negative Closest margin: Ductal carcinoma in situ is present 1 cm from the deep margin of resection Histologic Type of Invasive Carcinoma: Ductal Histologic Grade: Glandular (Acinar)/Tubular Differentiation: 3 Nuclear Grade: 3 Mitotic Rate: 2 Overall Bartlett Damico Grade: III Lymph-Vascular Invasion: Present Ductal Carcinoma In Situ (DCIS): DCIS is present Type: Solid Nuclear Grade: 3 Necrosis: Comedo type Lymph Nodes: (required only if lymph nodes are present in the specimen) Number of sentinel lymph nodes examined: 2 Total number of lymph nodes examined (sentinel and nonsentinel): 2 Number of lymph nodes with macrometastases (>0.2 cm): 1 Number of lymph nodes with micrometastases (>0.2 mm to 0.2 cm and/or >200cells): 0 Number of lymph nodes with isolated tumor cells (less than or equal to 0.2 mm and less than or equal to 200 cells): 0 Number of lymph nodes without tumor cells identified: 1 Size of largest metastatic deposit (if present): 0.6 cm Extranodal Invasion: Present Amount: 0.8 mm Apparently initial specimens were negative for lara involvement (specimen improperly collected in OR), but final path showed tumor presence. Underwent subsequent ALND 07/31/12--Right axillary contents, axillary dissection (A) - Four lymph nodes, negative for metastatic carcinoma (0/4); AJCC stage pN0 Enrolled in [employer]. Recurrence sore of 12 (8% average rate of distant recurrence). Randomized to AI therapy. Started exemestane 10/23/12. Couldn't get financial assistance for anastrozole. Underwent evaluation for diarrhea that started soon after beginning exemestane. Repeat colonoscopy with histologic evidence lymphocytic colitis. Patient however continued exemestane as it wasn't clear that it caused the lymphocytic colitis. Self d/c'ed exemestane in May 2013. Diarrhea significantly slowed and she had a two week period of formed stool with BM daily in am. Started Aromasin again and diarrhea started again. Stopped Aromasin after 9 days. Previous therapy: 1) Exemestane 10/2012-05/2013. Stopped due to diarrhea. 2) Letrozole 08/2013-08/2014. Stopped due to angioedema of the lips. 3) Tamoxifen. 09/2014-01/2015. Stopped due to recurrent angioedema. 4) Anastrozole. 5) Raloxifene started 06/2015. Stopped due to diarrhea. Current therapy: 1) None. Interim history: Saw plastic surgeon to get reconstruction adjusted. 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 Pathology: A. LEFT BREAST TISSUE, EXCISION: - BENIGN BREAST TISSUE WITH FOCAL APOCRINE METAPLASIA AND UNREMARKABLE SKIN B. LYMPH NODES, RIGHT AXILLARY, EXCISION: - METASTATIC DUCTAL CARCINOMA (ISOLATED TUMOR CELLS) IN ONE OUT OF TWO LYMPH NODES (1/2) Ancillary studies: Pancytokeratin: Positive for ITCs C. 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 The patient's history of breast cancer is noted. The tumor measures 1.2 cm in greatest dimension and extends to all the peripheral cauterized aspects of the specimen. The clinician was notified of the above diagnosis on 04/04/2024. This part of this case was reviewed by Dr. Gonzalez who concurs with the above interpretation. Ancillary studies: Pancytokeratin: Positive E-cadherin: Positive SOX10: Negative Mart1: Negative D. LEFT BREAST IMPLANT, REMOVAL: - SEE GROSS DESCRIPTION BELOW (GROSS ONLY) Synoptic Checklist Breast Biomarker Reporting Template BREAST BIOMARKER REPORTING TEMPLATE - All Specimens Protocol posted: 01/25/2023 Test(s) Performed: Estrogen Receptor (ER) Status: Positive (greater than 10% of cells demonstrate nuclear positivity) Percentage of Cells with Nuclear Positivity: 91-100% Average Intensity of Staining: Strong Test Type: Food and Drug Administration (FDA) cleared (test / vendor): [employer] Primary Antibody: SP1 Test(s) Performed: Progesterone Receptor (PgR) Status: Positive Percentage of Cells with Nuclear Positivity: 71-80% Average Intensity of Staining: Strong Test Type: Food and Drug Administration (FDA) cleared (test / vendor): [employer] Primary Antibody: 1E2 Test(s) Performed: HER2 by Immunohistochemistry: Negative (Score 1+) Emergent appendectomy 12/2023. Diarrhea since then. Colestipol works to control it. Without it, 3-4 urgent episodes watery diarrhea a day. PAST MEDICAL HISTORY Diagnosis Date Abnormal uterine bleeding (AUB) 2001 Hysterectomy Breast cancer (HCC) 03/06/2017 Lump or mass in breast left breast Malignant neoplasm of right breast in female, estrogen receptor positive (HCC) 03/06/2017 Mitral valve prolapse PVC (premature ventricular contraction) Smoker Supraventricular tachycardia (HCC) 11/23/2020 PAST SURGICAL HISTORY Procedure Laterality Date AXILLARY LYMPHADENECTOMY 07/31/2012 right axilla BREAST AUGMENTATION W/PROSTHETIC IMPLANT 1999 BREAST BIOPSY CORE 05/30/2012 right breast BREAST BIOPSY CORE 06/06/2012 right breast BREAST RECONSTRUCTION 07/19/2012 right breast single step implant CARPAL TUNNEL Bilateral wrists COLONOSCOPY FLX DX W/COLLJ SPEC WHEN PFRMD 01/01/2013 Normal colonoscopy-5 year followup - family history COLONOSCOPY FLX DX W/COLLJ SPEC WHEN PFRMD 05/08/2013 Colonoscopy EGD TRANSORAL BIOPSY SINGLE/MULTIPLE 01/01/2013 gastritis FNA UNDER GUIDANCE 06/06/2012 right breast by ultrasound INCISE FINGER TENDON SHEATH Right 09/18/2019 Right trigger thumb release LIG/TRNSXJ FLP TUBE ABDL/VAG APPR UNI/BI 1984 MASTECTOMY, SIMPLE, COMPLETE 07/19/2012 right breast with SLND PAST SURGICAL HISTORY OF oral surgery PAST SURGICAL HISTORY OF removal of pingula left eye TONSILLECTOMY HX VAGINAL HYSTERECTOMY UTERUS 250 GM/< 2002 AUB, possible abnormal pap prior to hysterectomy ALLERGIES Allergen Reactions Arimidex [Anastrozo* Rash Aromasin [Exemestan* Diarrhea Tamoxifen Rash Letrozole Rash Current Outpatient Medications Medication Sig methocarbamol (ROBAXIN) 750 mg tablet Take 750 mg by mouth three times a day as needed. colestipol (COLESTID) 1 gram tablet Take 2 tablets by mouth daily at bedtime. acetaminophen (TYLENOL EXTRA STRENGTH) 500 mg tablet Take 1,000 mg by mouth every 8 hours as needed. ibuprofen (MOTRIN) 200 mg tablet Take 400 mg by mouth every 8 hours as needed. biotin 1 mg cap Take 1 capsule by mouth once daily. fluocinonide (LIDEX) 0.05 % cream Apply to affected area two times a day as needed (for areas of rash, limit to not more than 2 weeks use at a time.). multivit-min/vit C/herb no.124 (AIRBORNE GUMMY ORAL) Take by mouth. No current facility-administered medications for this visit. Family History Problem Relation Age of Onset Anesthesia Father Macular Degen Father other (Other) Father Colon Cancer Father 60 Skin Cancer Father Allergies Mother Heart Mother Hypertension Mother Stroke Mother Hypertension Sister Blindness Sister Lymphoma Sister Allergies Sister other (non-hodgkins lymphoma) Sister other ([place]-Echo Syndrome) Sister Heart Attack Brother 57 other (Leukemia) Paternal Aunt Colon Cancer Paternal Uncle dx 70's other (Leukemia) Paternal Uncle Breast Cancer Other maternal aunt, in her 60's Prostate Cancer Other paternal cousin Cancer Other paternal first cousin dx lacrimal sac tumor d. 25 Cancer Other /paternal first cousin dx tumor size of cabbage on chest wall ROS: Constitutional: Denies episodes of fever. Neuro: Denies CORONADO, vertigo, dizziness and imbalance. Denies symptoms of neuropathy. HEENT: No recent change in voice, vision or hearing. Resp: Denies cough, wheeze and hemoptysis. Denies shortness of breath at rest. CVS: Denies exertional chest pain, PND, orthopnea and LE edema. GI: Denies dysgeusia. Denies symptoms of stomatitis. Denies dysphagia and odynophagia. : See above. Endo: Denies hot flashes. Denies polyuria and polydipsia. Denies heat and cold intolerance. Musculoskeletal: See above. Derm: Denies rash. Denies jaundice and diffuse pruritis. Heme: Denies unusual bleeding and unexplained bruising. Psych: Normal mood. Participation of a fellow, resident, medical student, or advanced practice provider student in performing the sensitive examination was discussed with the patient or authorized outbound sales representative. The patient or authorized outbound sales representative has agreed to proceed with the sensitive examination. (Sensitive examination includes inspection and/or palpation of the breasts, pelvis, prostate and anorectal regions) Neisha Navarro LPN chaperonemaryam. PHYSICAL EXAM: Vitals: Blood pressure 154/88, pulse 67, temperature 36.2 C (97.1 F), temperature source Temporal, height 167.6 cm (5' 6), weight 71 kg (156 lb 8 oz), SpO2 98%. Well-appearing and in no acute distress. EYES: Sclerae are anicteric bilaterally. LYMPHATIC: Possible small mid left cervical mobile lymph node deep to the SCM. CARDIOVASCULAR: Rhythm is regular. BREAST: Left breast implant. Mild bruising around the areolar incision. Right breast implant with no suspicious dermal lesions or subcutaneous nodules. Mild induration in the right axilla. ABD: Abdomen is nondistended. Extremities: Free of edema. SKIN: No rash. ASSESSMENT/PLAN: (C50.911) Malignant neoplasm of right female breast, unspecified site of breast (HCC) (primary encounter diagnosis) Assessment: -pT1c (1.8 cm; grade III; positive AL invasion) pN1a (1 of 6 LNs positive with extracapsular extension) M0 ER/SC positive (both >95%) HER2 non-amplified (FISH). -Originally declined radiation -Axillary recurrence. -Discussed plan with her and her son for upcoming staging imaging. Further plan for surgical/radiation based on those results. She will require systemic endocrine therapy and we will have to retry anastrozole +/- CD4/6 inhibitor. Plan: -Already scheduled to see genetic counseling on 04/17. -Scheduled for CT scans and bone scan next week and early the week after. -Office visit on 05/01 to review results and come up with a plan of care. Portions of this documentation were copied and pasted from my previous office visit note dated 10/12/2018 in order to provide a cohesive continuity of the history. The note has been reviewed and edited and updated as necessary. I spent a total of 40 minutes on the date of the service which included preparing to see the patient, [id number] patient care, completing clinical documentation, obtaining and/or reviewing separately obtained history, performing a medically appropriate examination, counseling and educating the patient/family/caregiver, ordering medications, tests, or procedures, communicating with other HCPs (not separately reported), and communicating results to the patient/family/caregiver. Michael Mackey DO documented in this encounter [facility] 04-16-2024 Note [facility] 04-16-2024 Note [facility] 04-16-2024 History of Present illness Narrative CC: Patient presents with: Discussion: Breast cancer- RT lymph nodes HPI Shaikra Franklin is a 63 year old female who presents today for above. She was recently diagnosed with reoccurrence of breast cancer of the right breast and is scheduled with oncologist Dr. Mackey today. She was seen on 03/12 for chronic diarrhea. Stool studies negative except for borderline abnormal fecal calprotectin and she was referred to general surgery. She preferred to not have a colonoscopy at that time as she had a bad experience previously and recent Cologuard was negative. She was prescribed Questran which does help with the diarrhea however she prefers to take a tablet instead of powder form. Review of Systems See HPI PAST MEDICAL HISTORY Diagnosis Date Abnormal uterine bleeding (AUB) 2001 Hysterectomy Breast cancer ([facility]) 03/06/2017 Lump or mass in breast left breast Malignant neoplasm of right breast in female, estrogen receptor positive ([facility]) 03/06/2017 Mitral valve prolapse PVC (premature ventricular contraction) Smoker Supraventricular tachycardia ([facility]) 11/23/2020 PAST SURGICAL HISTORY Procedure Laterality Date AXILLARY LYMPHADENECTOMY 07/31/2012 right axilla BREAST AUGMENTATION W/PROSTHETIC IMPLANT 1999 BREAST BIOPSY CORE 05/30/2012 right breast BREAST BIOPSY CORE 06/06/2012 right breast BREAST RECONSTRUCTION 07/19/2012 right breast single step implant CARPAL TUNNEL Bilateral wrists COLONOSCOPY FLX DX W/COLLJ SPEC WHEN PFRMD 01/01/2013 Normal colonoscopy-5 year followup - family history COLONOSCOPY FLX DX W/COLLJ SPEC WHEN PFRMD 05/08/2013 Colonoscopy EGD TRANSORAL BIOPSY SINGLE/MULTIPLE 01/01/2013 gastritis FNA UNDER GUIDANCE 06/06/2012 right breast by ultrasound INCISE FINGER TENDON SHEATH Right 09/18/2019 Right trigger thumb release LIG/TRNSXJ FLP TUBE ABDL/VAG APPR UNI/BI 1984 MASTECTOMY, SIMPLE, COMPLETE 07/19/2012 right breast with SLND PAST SURGICAL HISTORY OF oral surgery PAST SURGICAL HISTORY OF removal of pingula left eye TONSILLECTOMY HX VAGINAL HYSTERECTOMY UTERUS 250 GM/< 2002 AUB, possible abnormal pap prior to hysterectomy ALLERGIES Arimidex [Anastrozole], Aromasin [Exemestane], Tamoxifen, and Letrozole MEDICATIONS methocarbamol (ROBAXIN) 750 mg tablet Take 750 mg by mouth three times a day as needed. cholestyramine (QUESTRAN) 4 gram packet Take 1 Packet by mouth three times a day with meals. biotin 1 mg cap Take by mouth. fluocinonide (LIDEX) 0.05 % cream Apply to affected area two times a day as needed (for areas of rash, limit to not more than 2 weeks use at a time.). multivit-min/vit C/herb no.124 (AIRBORNE GUMMY ORAL) Take by mouth. FAMILY HISTORY Problem Relation Age of Onset Anesthesia Father Macular Degen Father other (Other) Father Colon Cancer Father 60 Skin Cancer Father Allergies Mother Heart Mother Hypertension Mother Stroke Mother Hypertension Sister Blindness Sister Lymphoma Sister Allergies Sister other (non-hodgkins lymphoma) Sister other ([place] Syndrome) Sister Heart Attack Brother 57 other (Leukemia) Paternal Aunt Colon Cancer Paternal Uncle dx 70's other (Leukemia) Paternal Uncle Breast Cancer Other maternal aunt, in her 60's Prostate Cancer Other paternal cousin Cancer Other paternal first cousin dx lacrimal sac tumor d. 25 Cancer Other /paternal first cousin dx tumor size of cabbage on chest wall Social History Tobacco Use Smoking status: Former Current packs/day: 0.00 Average packs/day: 0.5 packs/day for 12.0 years (6.0 ttl pk-yrs) Types: Cigarettes Start date: 08/31/2009 Quit date: 08/31/2021 Years since quittin.6 Smokeless tobacco: Never Tobacco comments: relapsed 10/2020 Vaping Use Vaping status: Never Used Substance Use Topics Alcohol use: Not Currently Comment: once a month, 1 drink Drug use: Not Currently Comment: History of remote cocaine use(as young adult) BP 120/68 Pulse 75 Resp 12 Wt 70.5 kg (155 lb 6.8 oz) SpO2 96% BMI 25.58 kg/m Physical Exam Vitals reviewed. Constitutional: Appearance: Normal appearance. Neurological: Mental Status: She is alert. Psychiatric: Mood and Affect: Mood normal. DATA REVIEWED: Most recent labs ASSESSMENT/PLAN: 1. Chronic diarrhea - ICD9: 787.91, ICD10: K52.9 (primary diagnosis) Controlled with Questran. Patient prefers tablet form which had taken previously years ago and was effective. - stop Questran and start COLESTIPOL 1 GRAM TABLET - follow-up as needed for any persistent or worsening symptoms 2. Recurrent malignant neoplasm of right breast (HCC) - ICD9: 174.9, ICD10: C50.911 Follow-up with oncology today as scheduled Prescription instructions reviewed with patient as applicable. Potential red flag symptoms discussed with the patient. Reviewed appropriate action plan to take if red flag symptoms occur. Patient agreeable to treatment plan. Cheryl Fisher APRN.[place] Medical Decision Making: Problems: Low: Stable chronic illness Data: Unique test result(s) reviewed: 1 Risk: Low: Low risk from testing/treatment Moderate: Drug management Medical Decision Making Level: 3 - Low documented in this encounter [facility] 04-10-2024 Miscellaneous Notes Please call patient: CXR and blood work look good documented in this encounter [facility] 04-10-2024 Progress note Formatting of t his note might be different from the original. Please call patient: CXR and blood work look good [facility] 04-10-2024 History of Present illness Narrative Images from the original note were not included. Chief Complaint Patient presents with Cancer Treatment Planning Treatment planning History of Present Illness: Shakira Franklin is a 63 y.o. female new here to breast center after excision of mass right axilla by plastic surgery showed recurrent breast cancer ( mass was felt to be a neuroma) She c/o 7 mos history of right axillary pain and numbness- had nerve studies- negative Pain to better with injection so felt to be neuroma right axilla Also she wanted symmetry procedure so taken to surgery by plastic service for symmetry ( new implant left) and excision neuroma right- Dr. Cazares 04/02/24 5 mos history of left hip pain Pathology from right axilla 04/04/24 with metastatic ductal carcinoma in 1/2 LN ( ITC and right axillary neuroma was invasive ductal carcinoma 1.2 cm and extends to all the margins ER+, SC+, HER2 negative History of right breast cancer in [address] Mackey in [place] Sent request to [facility] for prior films 04/09/24- RECEIVED FILMS 04/09/24 History of Right breast invasive ductal carcinoma diagnosed on 05/30/2012 at [facility] Treatments include: Surgery- Right Skin Sparing Mastectomy with immediate implant replacement and SLNB on 07/26/2012- Dr. Whitaker (1/2 LN + 6 mm with focal extranodal extension ) Axillary LN Dissection- 07/31/2012-Dr. Whitaker (0/4 LN) Chemotherapy- no-Oncotype Recurrence score of 12 Radiation therapy- no Endocrine therapy- yes 1) Exemestane 10/2012-05/2013. Stopped due to diarrhea. 2) Letrozole 08/2013-08/2014. Stopped due to angioedema of the lips. 3) Tamoxifen. 09/2014-01/2015. Stopped due to recurrent angioedema. 4) Anastrozole. 5) Raloxifene started 06/2015. Stopped due to diarrhea. Last mammogram date 07/03/2023-LEFT SCREENING. BIRADS 2, 08/02/2023- RIGHT MAMMOGRAM AND ULTRASOUND-08/02/2023. BIRADS 1 Last DEXA 01/22/2024. Results: Normal. Genetics: no Pathology: Addendum Additional ancillary study: LAI-3: Positive Addendum electronically signed by Ty Garcia MD on 04/05/2024 at 1026 Final Diagnosis A. LEFT BREAST TISSUE, EXCISION: - BENIGN BREAST TISSUE WITH FOCAL APOCRINE METAPLASIA AND UNREMARKABLE SKIN B. LYMPH NODES, RIGHT AXILLARY, EXCISION: - METASTATIC DUCTAL CARCINOMA (ISOLATED TUMOR CELLS) IN ONE OUT OF TWO LYMPH NODES (1/2) Ancillary studies: Pancytokeratin: Positive for ITCs C. 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 The patient's history of breast cancer is noted. The tumor measures 1.2 cm in greatest dimension and extends to all the peripheral cauterized aspects of the specimen. The clinician was notified of the above diagnosis on 04/04/2024. This part of this case was reviewed by Dr. Gonzalez who concurs with the above interpretation. Ancillary studies: Pancytokeratin: Positive E-cadherin: Positive SOX10: Negative Mart1: Negative D. LEFT BREAST IMPLANT, REMOVAL: - SEE GROSS DESCRIPTION BELOW (GROSS ONLY) at 1506 Synoptic Checklist Breast Biomarker Reporting Template Protocol posted: 3BREAST BIOMARKER REPORTING TEMPLATE - All Specimens Test(s) Performed Estrogen Receptor (ER) Status Positive (greater than 10% of cells demonstrate nuclear positivity) Percentage of Cells with Nuclear Positivity 91-100% Average Intensity of Staining Strong Test Type Food and Drug Administration (FDA) cleared (test / vendor): [employer] Primary Antibody SP1 Test(s) Performed Progesterone Receptor (PgR) Status Positive Percentage of Cells with Nuclear Positivity 71-80% Average Intensity of Staining Strong Test Type Food and Drug Administration (FDA) cleared (test / vendor): [employer] Primary Antibody 1E2 Test(s) Performed HER2 by Immunohistochemistry Negative (Score 1+) Test Type Food and Drug Administration (FDA) cleared (test / vendor): [employer] Primary Antibody 4B5 Cold Ischemia and Fixation Times Cannot be determined: Not fixation time recorded . 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 We discussed that this typically includes a combination of surgery, radiation, chemotherapy, and estrogen blockade when applicable. Imaging: DATE OF EXAM: Aug 02 2023 2:53PM [facility] 0626 - [facility] DIAGNOSTIC RT / PROCEDURE REASON: multiple diagnoses * * * * Physician Interpretation * * * * RESULT: #[id number] - [facility] DIAGNOSTIC RT UNILATERAL RIGHT DIGITAL DIAGNOSTIC MAMMOGRAM WITH CAD: 08/02/2023 HISTORY: Multiple Diagnoses/ rt axillary pain x 5 months /priors available for comparison. RESULT: TECHNIQUE: The study was acquired using full field digital technology and interpreted from soft copy. Current study was also evaluated with a Computer Aided Detection (CAD). Comparison is made to exams dated: 07/03/2023 mammogram, 06/28/2022 mammogram, 12/29/2021 mammogram, 11/19/2021 mammogram, and 12/11/2020 mammogram - [facility]. The right breast is heterogeneously dense, which may obscure small masses. Right breast implant is intact. The patient is status post mastectomy right breast. No significant masses or calcifications are seen in the breast. IMPRESSION IMPRESSION: INCOMPLETE: NEEDS ADDITIONAL IMAGING EVALUATION There is no mammographic abnormality seen in the right breast to correspond with the pain and the skin retraction; however, further workup with ultrasound is recommended. Ranjith martinez/abdulkadir:08/02/2023 15:12:32 Director Of Graduate Medical Education(s): Tyson Paez RT(R)(M), [facility] Mammogram BI-RADS: 0 Incomplete: needs additional imaging evaluation Multiple national specialty organizations have released breast cancer screening guidelines for women at average risk for developing breast cancer - guidelines that are based on both evidence and opinion, yet differ on when to start and how often to screen for breast cancer. With representation from Breast Imaging, Internal Medicine, Women's Health, Family Medicine, and Medical/Surgical Oncology, the [facility] has carefully reviewed the data and reached the following consensus: 1) All women should engage in shared decision-making with their providers to decide when to start and how often to screen; 2) All women should have the opportunity to start screening mammography at age 40; 3) For women ages 45-55, we recommend annual screening mammograms; 4) For women ages 55 and over, we support both the transition from an annual to a biennial interval if this aligns more with patient's values and preferences, or continuation with annual screening; 5) All women should discuss with their providers when to stop screening mammograms. Museum Director: Abdulkadir Transcribe Date/Time: Aug 02 2023 2:24P Dictated by: RANJITH HANNA MD DATE OF EXAM: Aug 02 2023 3:07PM [facility] [place] 0594 - [facility] US BREAST [facility] RT / PROCEDURE REASON: multiple diagnoses * * * * Physician Interpretation * * * * #[id number] - [facility] US BREAST LTD RT LIMITED ULTRASOUND OF RIGHT BREAST AND AXILLA: 08/02/2023 HISTORY: Multiple Diagnoses. RESULT: Comparison is made to exam dated: 08/02/2023 mammogram - [facility]. Color flow and real-time ultrasound of the right breast 9 o'clock, and axilla regions were performed. Alfred scale images of the real-time examination were reviewed. IMPRESSION IMPRESSION: NEGATIVE There is no sonographic evidence of malignancy. There is no abnormality seen in the right breast and axilla to correspond with the pain and skin retraction, however, clinical followup is recommended. Ranjith Hanna M.D. djg/:08/02/2023 15:34:46 Director Of Graduate Medical Education(s): Rut Rowan, [facility] Ultrasound BI-RADS: 1 Negative Multiple national specialty organizations have released breast cancer screening guidelines for women at average risk for developing breast cancer - guidelines that are based on both evidence and opinion, yet differ on when to start and how often to screen for breast cancer. With representation from Breast Imaging, Internal Medicine, Women's Health, Family Medicine, and Medical/Surgical Oncology, the [facility] has carefully reviewed the data and reached the following consensus: 1) All women should engage in shared decision-making with their providers to decide when to start and how often to screen; 2) All women should have the opportunity to start screening mammography at age 40; 3) For women ages 45-55, we recommend annual screening mammograms; 4) For women ages 55 and over, we support both the transition from an annual to a biennial interval if this aligns more with patient's values and preferences, or continuation with annual screening; 5) All women should discuss with their providers when to stop screening mammograms. Museum Director: Abdulkadir Transcribe Date/Time: Aug 02 2023 2:55P Dictated by : RANJITH HANNA MD DATE OF EXAM: Jul 03 2023 2:36PM [facility] 0582 - [facility] SCREENING W [place] / PROCEDURE REASON: Encounter for screening mammogram for malignant neoplasm of breast * * * * Physician Interpretation * * * * RESULT: #[id number] - [facility] SCREENING W [place] UNILATERAL LEFT DIGITAL SCREENING MAMMOGRAM TOMOSYNTHESIS WITH CAD: 07/03/2023 HISTORY: Encounter For Screening Mammogram For Malignant Neoplasm Of Breast. RESULT: TECHNIQUE: The study was acquired using full field digital technology and interpreted from soft copy. Digital Breast Tomosynthesis (DBT) images were obtained and used to assist in the interpretation of this examination. Current study was also evaluated with a Computer Aided Detection (CAD). Comparison is made to exams dated: 06/28/2022 mammogram, 12/29/2021 mammogram, 11/19/2021 mammogram, and 12/11/2020 mammogram - [facility]. The left breast is heterogeneously dense, which may obscure small masses. The patient is post right mastectomy. Left retropectoral silicone gel implant is stable. Implant may obscure breast parenchyma, making mammographic interpretation difficult. There is a stable benign mass in the left breast in the upper inner quadrant. No significant masses, calcifications, or other findings are seen in the breast. There has been no significant interval change. IMPRESSION IMPRESSION: BENIGN FINDING There is no mammographic evidence of malignancy. A 1 year screening left mammogram is recommended. Alma Parra M.D. rs/abdulkadir:07/04/2023 11:32:04 Director Of Graduate Medical Education(s): RT Ben(R)(M), [facility] letter sent: Normal over 40 Mammogram BI-RADS: 2 Benign finding Multiple national specialty organizations have released breast cancer screening guidelines for women at average risk for developing breast cancer - guidelines that are based on both evidence and opinion, yet differ on when to start and how often to screen for breast cancer. With representation from Breast Imaging, Internal Medicine, Women's Health, Family Medicine, and Medical/Surgical Oncology, the [facility] has carefully reviewed the data and reached the following consensus: 1) All women should engage in shared decision-making with their providers to decide when to start and how often to screen; 2) All women should have the opportunity to start screening mammography at age 40; 3) For women ages 45-55, we recommend annual screening mammograms; 4) For women ages 55 and over, we support both the transition from an annual to a biennial interval if this aligns more with patient's values and preferences, or continuation with annual screening; 5) All women should discuss with their providers when to stop screening mammograms. Museum Director: Abdulkadir Transcribe Date/Time: Jul 03 2023 2:17P Dictated by: ALMA PARRA MD This examination was interpreted and the report reviewed and electronically signed by: ALMA PARRA MD on Jul 04 2023 11:32AM EST Review of Systems: Review of Systems Constitutional: Negative for appetite change, diaphoresis, fatigue, fever and unexpected weight change. HENT: Negative for trouble swallowing and voice change. Eyes: Negative for visual disturbance. Respiratory: Negative for apnea, cough, choking, shortness of breath and stridor. Cardiovascular: Negative for chest pain. Endocrine: Negative for cold intolerance and heat intolerance. Musculoskeletal: Positive for arthralgias (left hip pain- has MRI). Negative for joint swelling, myalgias and neck pain. Skin: Negative for color change and rash. Allergic/Immunologic: Negative for immunocompromised state. Neurological: Positive for numbness (and pain right axilla). Negative for dizziness, tremors, weakness and headaches. Hematological: Positive for adenopathy (bilateral cervical). Psychiatric/Behavioral: Positive for decreased concentration. Negative for dysphoric mood. The patient is nervous/anxious. Past Medical History: Diagnosis Date Breast cancer (HCC) 2012 right breast approx 2014 MVP (mitral valve prolapse) PVC's (premature ventricular contractions) Rheumatic fever Past Surgical History: Procedure Laterality Date APPENDECTOMY BREAST BIOPSY Right BREAST SURGERY Right LND BREAST SURGERY Right removal of implant, debridement, skin graft and fat transfer COLONOSCOPY EYE SURGERY Right excision benign tumor HYSTERECTOMY MASTECTOMY Right 07/2012 with sentinel lymph nose biopsy- Dr. Whitaker ORAL SURGERY, PROCEDURE (HISTORICAL) REVISION OF RECONSTRUCTED BREAST (HISTORICAL) N/A 04/02/2024 REVISION LEFT BREAST RECONSTRUCTION WITH IMPLANT EXCHANGE, ALLODERM, MASTOPEXY, EXPLORATION OF RIGHT AXILLA WITH EXCISION OF NEUROMA AND TARGETED MUSCLE REINNERVATION TONSILLECTOMY TUBAL LIGATION WISDOM TOOTH EXTRACTION Allergies Allergen Reactions Anastrozole Rash and Unknown Exemestane Diarrhea and Unknown Tamoxifen Rash and Unknown Letrozole Rash and Unknown BP (!) 144/89 (BP Location: Left arm, Patient Position: Sitting, BP Cuff Size: Small adult) Temp 36.4 C (97.6 F) Ht 5' 6 (1.676 m) Wt 153 lb (69.4 kg) BMI 24.69 kg/m Current Outpatient Medications on File Prior to Visit Medication Sig Dispense Refill acetaminophen (Tylenol) 500 MG tablet Take 1,000 mg by mouth every 6 hours as needed for mild pain (1-3). cholestyramine (Questran) 4 g packet Take 4 g by mouth 3 times daily (with meals). cyclobenzaprine (Flexeril) 10 MG tablet Take 10 mg by mouth every 8 hours as needed. diphenoxylate-atropine (Lomotil) 2.5-0.025 MG tablet Take 1 tablet by mouth every 6 hours as needed. DULoxetine (Cymbalta) [address] capsule TAKE 1 capsule by mouth once a day for 30 days take 30 mg for one week, the may increase to 60 mg a day meloxicam (Mobic) 15 MG tablet daily with supper. methocarbamol (Robaxin) 500 MG tablet Take 500 mg by mouth 3 times daily as needed for muscle spasms. naproxen (Naprosyn) 500 MG tablet Take 500 mg by mouth. ondansetron (Zofran) 4 MG tablet Take 1 tablet (4 mg) by mouth Daily as needed for nausea or vomiting. 20 tablet 0 [] oxyCODONE-acetaminophen (Percocet) 5-325 MG tablet Take 1 tablet by mouth every 6 hours as needed for severe pain (7-10) for up to 5 days. 15 tablet 0 No current facility-administered medications on file prior to visit. Physical Exam: Physical Exam Constitutional: Appearance: Normal appearance. She is normal weight. HENT: Head: Normocephalic and atraumatic. Eyes: Extraocular Movements: Extraocular movements intact. Conjunctiva/sclera: Conjunctivae normal. Pupils: Pupils are equal, round, and reactive to light. Neck: Comments: Bilateral tender lymph nodes Largest left side upper neck Cardiovascular: Rate and Rhythm: Normal rate and regular rhythm. Pulses: Normal pulses. Pulmonary: Effort: Pulmonary effort is normal. Breath sounds: Normal breath sounds. No stridor. Chest: Chest wall: No deformity, tenderness or edema. Breasts: Breasts are symmetrical. Right: Absent. No swelling, mass, skin change or tenderness. Left: Skin change (bruising) and tenderness present. No swelling, inverted nipple, mass or nipple discharge. Comments: Right mastectomy with implant reconstruction Recent new implant left breast Musculoskeletal: General: No swelling, tenderness or deformity. Normal range of motion. Cervical back: Normal range of motion and neck supple. No rigidity or tenderness. Right lower leg: No edema. Left lower leg: No edema. Lymphadenopathy: Cervical: Cervical adenopathy present. Right cervical: Superficial cervical adenopathy present. No posterior cervical adenopathy. Left cervical: Superficial cervical adenopathy present. No posterior cervical adenopathy. Upper Body: Right upper body: No supraclavicular, axillary or pectoral adenopathy. Left upper body: No supraclavicular, axillary or pectoral adenopathy. Skin: General: Skin is warm and dry. Coloration: Skin is not jaundiced or pale. Findings: No erythema, lesion or rash. Neurological: General: No focal deficit present. Mental Status: She is alert and oriented to person, place, and time. Motor: No weakness. Gait: Gait normal. Psychiatric: Mood and Affect: Mood normal. Behavior: Behavior normal. Thought Content: Thought content normal. Assessment: 1. Recurrent breast cancer, right (HCC) 2. LAD (lymphadenopathy) of left cervical region NCCN guidelines were discussed. Plan: First Treatment: Metastatic workup FU with medical oncology Will need radiation oncology referral Functional Assessment: Yes Plastic Surgery Referral: Yes- has seen Dr. Cazares Genetic Testing: Yes Orders Placed This Encounter Procedures CT chest abdomen pelvis with contrast NM bone whole body XR chest [address] soft tissue neck w IV contrast Bilateral breast MR with and without contrast Comprehensive metabolic panel CBC Fu with medical oncology next week Culturally appropriate shared decision making was used to determine optimal course of workup and treatment for this patient. Patient demonstrates understanding of and agreement with the above plan of care. All questions have been answered to her satisfaction. Radha Terry MD 04/10/2024 Please disregard any typographical errors. This note was dictated using voice recognition software. documented in this encounter [facility] 04-10-2024 Miscellaneous Notes Addended by: AMANDA RIVERA on: 04/10/2024 11:05 AM Modules accepted: Orders documented in this encounter [facility] 04-10-2024 Note Addended by: AMANDA ROJAS on: 04/10/2024 11:05 AM Modules accepted: Orders [facility] 04-10-2024 Note Addended by: AMANDA ROJAS on: 04/10/2024 11:05 AM Modules accepted: Orders [facility] 04-10-2024 Note Chief Complaint Patient presents with Cancer Treatment Planning Treatment planning History of Present Illness: Shakira Franklin is a 63 y.o. female new here to breast center after excision of mass right axilla by plastic surgery showed recurrent breast cancer ( mass was felt to be a neuroma) She c/o 7 mos history of right axillary pain and numbness- had nerve studies- negative Pain to better with injection so felt to be neuroma right axilla Also she wanted symmetry procedure so taken to surgery by plastic service for symmetry ( new implant left) and excision neuroma right- Dr. Cazares 04/02/24 5 mos history of left hip pain Pathology from right axilla 04/04/24 with metastatic ductal carcinoma in 1/2 LN ( ITC and right axillary neuroma was invasive ductal carcinoma 1.2 cm and extends to all the margins ER+, SC+, HER2 negative History of right breast cancer in [address] Mackey in [place] Sent request to [facility] for prior films 04/09/24- RECEIVED FILMS 04/09/24 History of Right breast invasive ductal carcinoma diagnosed on 05/30/2012 at [facility] Treatments include: Surgery- Right Skin Sparing Mastectomy with immediate implant replacement and SLNB on 07/26/2012- Dr. Whitaker (1/2 LN + 6 mm with focal extranodal extension ) Axillary LN Dissection- 07/31/2012-Dr. Whitaker (0/4 LN) Chemotherapy- no-Oncotype Recurrence score of 12 Radiation therapy- no Endocrine therapy- yes 1) Exemestane 10/2012-05/2013. Stopped due to diarrhea. 2) Letrozole 08/2013-08/2014. Stopped due to angioedema of the lips. 3) Tamoxifen. 09/2014-01/2015. Stopped due to recurrent angioedema. 4) Anastrozole. 5) Raloxifene started 06/2015. Stopped due to diarrhea. Last mammogram date 07/03/2023-LEFT SCREENING. BIRADS 2, 08/02/2023- RIGHT MAMMOGRAM AND ULTRASOUND-08/02/2023. BIRADS 1 Last DEXA 01/22/2024. Results: Normal. Genetics: no Pathology: Addendum Additional ancillary study: LAI-3: Positive Addendum electronically signed by Ty Garcia MD on 04/05/2024 at 1026 Final Diagnosis A. LEFT BREAST TISSUE, EXCISION: - BENIGN BREAST TISSUE WITH FOCAL APOCRINE METAPLASIA AND UNREMARKABLE SKIN B. LYMPH NODES, RIGHT AXILLARY, EXCISION: - METASTATIC DUCTAL CARCINOMA (ISOLATED TUMOR CELLS) IN ONE OUT OF TWO LYMPH NODES (1/2) Ancillary studies: Pancytokeratin: Positive for ITCs C. 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 The patient's history of breast cancer is noted. The tumor measures 1.2 cm in greatest dimension and extends to all the peripheral cauterized aspects of the specimen. The clinician was notified of the above diagnosis on 04/04/2024. This part of this case was reviewed by Dr. Gonzalez who concurs with the above interpretation. Ancillary studies: Pancytokeratin: Positive E-cadherin: Positive SOX10: Negative Mart1: Negative D. LEFT BREAST IMPLANT, REMOVAL: - SEE GROSS DESCRIPTION BELOW (GROSS ONLY) at 1506 Synoptic Checklist Breast Biomarker Reporting Template Protocol posted: 01/25/2023REAST BIOMARKER REPORTING TEMPLATE - All Specimens Test(s) Performed Estrogen Receptor (ER) Status Positive (greater than 10% of cells demonstrate nuclear positivity) Percentage of Cells with Nuclear Positivity 91-100% Average Intensity of Staining Strong Test Type Food and Drug Administration (FDA) cleared (test / vendor): Refugio Primary Antibody SP1 Test(s) Performed Progesterone Receptor (PgR) Status Positive Percentage of Cells with Nuclear Positivity 71-80% Average Intensity of Staining Strong Test Type Food and Drug Administration (FDA) cleared (test / vendor): [employer]ugio Primary Antibody 1E2 Test(s) Performed HER2 by Immunohistochemistry Negative (Score 1+) Test Type Food and Drug Administration (FDA) cleared (test / vendor): Refugio Primary Antibody 4B5 Cold Ischemia and Fixation Times Cannot be determined: Not fixation time recorded . 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 We discussed that this typically includes a combination of surgery, radiation, chemotherapy, and estrogen blockade when applicable. Imaging: DATE OF EXAM: Aug 02 2023 2:53PM [facility] 0626 - [facility] RT / PROCEDURE REASON: multiple diagnoses * * * * Physician Interpretation * * * * RESULT: #[id number] - [facility] RT UNILATERAL RIGHT DIGITAL DIAGNOSTIC MAMMOGRAM WITH CAD: 08/02/2023 HISTORY: Multiple Diagnoses/ rt axillary pain x 5 months /priors available fo (more content not included)... [facility] 04-05-2024 Telephone encounter Note Spoke with patient and scheduled as directed Snhea De Leon [facility] 04-05-2024 Miscellaneous Notes Spoke with patient and scheduled as directed Sneha De Leon 3/4 at 4 pm. Michael Mackey DO Pathology in care everywhere, when would you like her scheduled? Diane Garza LPN Patient had breast reconstruction surgery on Monday and was advised that she has breast cancer. Patient states she had completed at [facility]. She is having pathology report faxed to [phone]. Patient currently sees Cassandra for follow ups. Please review and advise for scheduling. documented in this encounter [facility] 04-05-2024 Telephone encounter Note 3 at 4 pm. Michael Mackey DO [facility] 04-05-2024 Telephone encounter Note Pathology in care everywhere, when would you like her scheduled? Diane Garza LPN [facility] 04-05-2024 Telephone encounter Note Patient had breast reconstruction surgery on Monday and was advised that she has breast cancer. Patient states she had completed at [facility]. She is having pathology report faxed to [phone]. Patient currently sees Cassandra for follow ups. Please review and advise for scheduling. [facility] Work Phone: 04-02-2024 Note Formatting of this n ote might be different from the original. Patient more awake, drinking coffee. Feels more alert to go home. IV discontinued, catheter intact, site benign. Manual pressure held. Patient dressed, all belongings returned. Daughter with homegoing instructions and prescription medications. [facility] 04-02-2024 Note Formatting of this n ote might be different from the original. Patient more awake, drinking coffee. Feels more alert to go home. IV discontinued, catheter intact, site benign. Manual pressure held. Patient dressed, all belongings returned. Daughter with homegoing instructions and prescription medications. [facility] 04-02-2024 Miscellaneous Notes Patient more awake, drinking coffee. Feels more alert to go home. IV discontinued, catheter intact, site benign. Manual pressure held. Patient dressed, all belongings returned. Daughter with homegoing instructions and prescription medications. Pt back to sleep, very drowsy. Does not feel like she can go home at this time. Will continue to monitor Patient up to bathroom with 2 assist Discharge information given to the patient. Patient and family verbalized understanding of information. Tolerating PO fluids and crackers. Vital signs are stable. Patients daughter at bedside and udpated Plastic & Reconstructive Surgery Operative Report Pre-operative Diagnosis: 1. Breast asymmetry after reconstruction 2. Right axillary neuroma symptomatic Post-operative Diagnosis: Same Procedure: 1. Revision of left breast reconstruction with removal and replacement of implant, capsulorrhaphy, and mastopexy. NAC pedicle was a superior pedicle. 2. Exploration of right axilla with excision of right axillary neuroma and targeted muscle reinnervation with sensory to motor epineurial anastomosis Surgeon: Jaya Cazares MD Water Control Supervisor(s): Marissa Cruz MD, Savita CUELLO Anesthesia: General Estimated blood loss: 15 cc Specimens: 1. Left breast tissue 2. Right axillary lymph nodes 3. Right axillary neuroma Implants: Implant removed was a 425 cc [place] implant and implant placed was a [place] memory gel smooth round high-profile 400 cc implant reference #[id number] with a base width of 12.2 cm Findings: See operative report Complications: None Condition: Stable Indications: Patient is a 63-year-old female with a history of right breast cancer who had a lumpectomy with implant and postoperative radiation. On her contralateral right side she had a previous periareolar mastopexy and implant placement. Over time she has developed ptosis and breast asymmetry between her cantwell and reconstructed in the breast. We discussed operative options and decided to proceed with a mastopexy and revision of her reconstruction on the left noncancer side. At the same time patient had chronic pain in the right axilla consistent with a neuroma. A preoperative block was placed in this area with resolution of her symptoms making me think surgical intervention would be beneficial for the patient. Description of Procedure: Patient was seen and evaluated in the preoperative area for her procedure. Preoperative markings were performed in the standard fashion. Patient localized the point of discomfort in her right axilla and this was marked on palpation a hard nodule was felt in this area. We also marked her breast for a superior pedicle mastopexy with a modified Esteves pattern. Risks/benefits were reviewed and informed consent was obtained. They were then taken to the OR and placed supine on the operating room table. Cardiopulmonary monitoring was initiated and EPC cuffs were placed on her bilateral lower extremities. General anesthesia was induced by the anesthesia team. Under ultrasound guidance the anesthesia service performed a left pec block. The patient was then prepped and draped in standard sterile fashion. A surgical time out was performed by all members of the surgical staff. We first started on the left breast. Our incisions were anesthetized with local anesthesia and we decreased the size of the NAC to 4 cm with a round template. We then made all of our skin incisions with a scalpel and de-epithelialized the superior pedicle for our NAC. Next using Bovie cauterization along the inferior aspect of our superior pedicle we dissected directly down to the breast capsule, elevated our medial lateral pillars, and then amputated the lower pole of our Esteves pattern. This breast tissue was sent for pathology. Patient had a visible capsule with some thin pectoralis major muscle along the superior edge that was visible. I then excised a large portion of the lower capsule and discarded this. We then examined her submuscular cavity which looked normal. We then opened the junction between her chest wall and the undersurface of the pectoralis major muscle at the superior aspect of the capsule and elevated the pocket cranially to allow for better implant placement. The implant that was removed was 425 cc. I then placed a 400 cc sizer in the pocket and I felt we had nice symmetry. The base width of this was 12.2 cm, I marked this off of the chest wall and plicated an ellipse of the lateral capsule to tighten the implant space. The edges of this capsule were cauterized for closure. This plication was performed with a 2-0 PDS suture. I then replaced the sizer into the pocket and advanced the superior capsule to the inferior capsule of opening in the area where we excised. I felt with partial inferior capsule removal this to help really lift the implant up into our new more superior pocket. With the excellent support from her capsule I felt placing a piece of AlloDerm was not needed. We then inset the NAC advancing our superior flap into the superior position with a few simple 2-0 silk sutures. The lateral aspect of the capsule was then closed with a running 2-0 PDS suture leaving an opening for implant placement. We then copiously irrigate out the operative pocket with antibiotic solution prepping the skin with our antibiotic solution as well. We then changed gloves and using a Gutierrez funnel and a no touch technique placed the new 400 cc implant into our pocket. We then finished closing the capsule to itself with the 2-0 PDS suture. We then brought our medial and lateral pillars together with a few interrupted 2-0 PDS sutures and then closed the breast parenchyma of the Esteves pattern to the inframammary fold with a number of interrupted 2-0 PDS sutures. We then closed the Esteves pattern and inset the NAC with multiple interrupted 3-0 Monocryl deep dermal sutures followed by a 3-0 Monocryl subcuticular stitch along the inframammary fold and a 4-0 Monocryl subcuticular stitch along the vertical and areolar incision. Next we went to the right axilla I used the patient's previous sentinel lymph node incision and anesthetized it with local anesthesia. Using a 15 blade scalpel a skin incision was made and we dissected through the skin and subcutaneous tissues with Bovie cauterization we then followed this path of scar tissue all the way down to the large scar tissue none that are palpated preoperatively. With careful dissection this area of scar was dissected out away from the surrounding axillary structures. The axillary vein was identified and a anterior branch of the artery and vein were going directly into the scar tissue. This is on the posterior aspect. Along the anterior aspect we dissected a few small vessels going into our scar and found a large intercostal likely, T2 branch going directly into this neuroma scar. On the posterior inferior aspect about 3 lymph nodes were identified with our scar tissue there were dissected away and sent for pathology. I then continued freeing up the scar tissue away from the surrounding vessels. The large branches off the axillary were controlled with auto clips and we have completely freed up this scar neuroma leaving is just attached to the intercostal branch. I then identified a small neurovascular bundle with a motor branch going into the inferior lateral aspect of the pectoralis major muscle. Identified this with the checkpoint nerve stimulator. I felt this was a posterior branch to perform targeted muscle reinnervation. We freed up the artery and vein off of the motor branch and controlled them with small clips and divided this branch. The neuroma was then cut away from the intercostal branch and sent for pathology. We then performed a sensory to motor epineurial anastomosis with a few interrupted 8-0 nylon sutures. We then irrigated out the operative field confirm hemostasis, and sprayed about 4 cc of RTC into the pocket. We then closed the capsule palpebral fascia with a few figure of 8 , 2-0 Vicryl sutures. We then closed our incision with multiple interrupted 3-0 Monocryl deep dermal sutures followed by 4-0 Monocryl subcuticular stitch. We then placed paper tape over both our breast and axillary incisions and the patient was placed in a surgical bra with multiple fluffs and ABDs. The patient tolerated the procedure without any immediate complications, was extubated and taken to the PACU in stable condition. At the end of the case all instrument, needle, and sponge counts were correct. Jaya Cazares MD Plastic and Reconstructive Surgery documented in this encounter [facility] 04-02-2024 Note Formatting of this n ote might be different from the original. Pt back to sleep, very drowsy. Does not feel like she can go home at this time. Will continue to monitor [facility] 04-02-2024 Note Formatting of this n ote might be different from the original. Pt back to sleep, very drowsy. Does not feel like she can go home at this time. Will continue to monitor [facility] 04-02-2024 Note Formatting of this n ote might be different from the original. Patient up to bathroom with 2 assist [facility] 04-02-2024 Note Formatting of this n ote might be different from the original. Patient up to bathroom with 2 assist [facility] 04-02-2024 Note Formatting of this n ote might be different from the original. Discharge information given to the patient. Patient and family verbalized understanding of information. Tolerating PO fluids and crackers. Vital signs are stable. [facility] 04-02-2024 Note Formatting of this n ote might be different from the original. Discharge information given to the patient. Patient and family verbalized understanding of information. Tolerating PO fluids and crackers. Vital signs are stable. [facility] 04-02-2024 Note Formatting of this n ote might be different from the original. Patients daughter at bedside and udpated [facility] 04-02-2024 Note Formatting of this n ote might be different from the original. Patients daughter at bedside and udpated [facility] 04-02-2024 Note Formatting of this n ote is different from the original. 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 Anesthesia Post Evaluation Patient location during evaluation: PACU Patient participation: complete - patient participated Level of consciousness: sleepy but conscious Pain management: satisfactory to patient Airway patency: patent Dental Injury: no Cardiovascular status: acceptable, blood pressure returned to baseline and hemodynamically stable Respiratory status: acceptable, spontaneous ventilation and face mask Hydration status: euvolemic Nausea/Vomiting: controlled There were no known notable events for this encounter. Patient can be discharged once all PACU criteria has been met. 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 Anesthesia Post Evaluation Patient location during evaluation: PACU Patient participation: complete - patient participated Level of consciousness: sleepy but conscious Pain management: satisfactory to patient Airway patency: patent Dental Injury: no Cardiovascular status: acceptable, blood pressure returned to baseline and hemodynamically stable Respiratory status: acceptable, spontaneous ventilation and face mask Hydration status: euvolemic Nausea/Vomiting: controlled There were no known notable events for this encounter. Patient can be discharged once all PACU criteria has been met. 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 Anesthesia Post Evaluation Patient location during evaluation: PACU Patient participation: complete - patient participated Level of consciousness: sleepy but conscious Pain management: satisfactory to patient Airway patency: patent Dental Injury: no Cardiovascular status: acceptable, blood pressure returned to baseline and hemodynamically stable Respiratory status: acceptable, spontaneous ventilation and face mask Hydration status: euvolemic Nausea/Vomiting: controlled There were no known notable events for this encounter. Patient can be discharged once all PACU criteria has been met. documented in this encounter [facility] 04-02-2024 Anesthesiology Postoperative evaluation and management note Patient: Shakira Franklin Procedure Summary Date: 04/02/24 Room / Location: [address] Operating Room Anesthesia Start: 0732 Anesthesia Stop: 1010 Procedures: REVISION LEFT BREAST RECONSTRUCTION WITH IMPLANT EXCHANGE, ALLODERM, MASTOPEXY, EXPLORATION OF RIGHT AXILLA WITH EXCISION OF NEUROMA AND TARGETED MUSCLE REINNERVATION IMPLANTATION BIOLOGICAL IMPLANT(ACELLULAR DERMAL MATRIX)SOFT TISSUE REINFORCEMENT(E.G.BREAST,TRUNK)ADD- ON TRANSFER, NERVE PEDICLE, STAGE 1 EXCISION, NEUROMA, CUTANEOUS NERVE 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 Anesthesia Post Evaluation Patient location during evaluation: PACU Patient participation: complete - patient participated Level of consciousness: sleepy but conscious Pain management: satisfactory to patient Multimodal analgesia pain management approach Airway patency: patent Two or more strategies used to mitigate risk of obstructive sleep apnea Cardiovascular status: acceptable and hemodynamically stable Respiratory status: acceptable, spontaneous ventilation and face mask Hydration status: acceptable There were no known notable events for this encounter. MIPS #430 PONV Patient received an inhalational anesthetic (4554F) Patient exhibits three or more risk factors for PONV (4556F) Patient received at [facility] 2 prophylactic Rx PONV anti-emtic agents of different classes preop and/or intraop (G9775) MIPS # 424 Perioperative Temperature Management Anesthesia time was 60 minutes or longer (4255F) Anesthesai administered was General (inhalational or TIVA) or Neuraxial block (X0424) At least one body temperature greater than 95.8F/35.5C achieved within the 30 mins immediately prior to or the 15 minutes immediately following anesthesia end time (G9771) MIPS #477 Multimodal Pain Management Not emergent case Patient was administered multimodal pain management (two or more drugs and/or interventions excluding systemic opioids) in the periopeartive period occurring at some time between 6 hours prior to anesthesia start time until discharged from PACU (G2148) MIPS #404 Anesthesiology Smoking Abstinence The patient is not a current smoker (e.g. cigarette, cigar, pipe, e-cigarette/vaping/marijuana) If no stop here (XX404) I completed my handoff to the receiving clinician during which we: 1. Identified the patient 2. Identified the responsible provider 3. Reviewed the pertinent medical history 4. Discussed the surgical course 5. Reviewed intra-op anesthesia management and issues during anesthesia 6. Set expectations for post-procedure period 7. Allowed opportunity for questions and acknowledgement of understanding. 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 Anesthesia Post Evaluation Patient location during evaluation: PACU Patient participation: complete - patient participated Level of consciousness: sleepy but conscious Pain management: satisfactory to patient Multimodal analgesia pain management approach Airway patency: patent Two or more strategies used to mitigate risk of obstructive sleep apnea Cardiovascular status: acceptable and hemodynamically stable Respiratory status: acceptable, spontaneous ventilation and face mask Hydration status: acceptable There were no known notable events for this encounter. MIPS #430 PONV Patient received an inhalational anesthetic (4554F) Patient exhibits three or more risk factors for PONV (4556F) [facility] PONV anti-emtic agents of different classes preop and/or intraop (G9775) MIPS # 424 Perioperative Temperature Management Anesthesia time was 60 minutes or longer (4255F) Anesthesai administered was General (inhalational or TIVA) or Neuraxial block (X0424) At least one body temperature greater than 95.8F/35.5C achieved within the 30 mins immediately prior to or the 15 minutes immediately following anesthesia end time (G9771) MIPS #477 Multimodal Pain Management Not emergent case Patient was administered multimodal pain management (two or more drugs and/or interventions excluding systemic opioids) in the periopeartive period occurring at some time between 6 hours prior to anesthesia start time until discharged from PACU (G2148) MIPS #404 Anesthesiology Smoking Abstinence The patient is not a current smoker (e.g. cigarette, cigar, pipe, e-cigarette/vaping/marijuana) If no stop here (XX404) I completed my handoff to the receiving clinician during which we: 1. Identified the patient 2. Identified the responsible provider 3. Reviewed the pertinent medical history 4. Discussed the surgical course 5. Reviewed intra-op anesthesia management and issues during anesthesia 6. Set expectations for post-procedure period 7. Allowed opportunity for questions and acknowledgement of understanding. [facility] 04-02-2024 Hospital Discharge instructions Jaya Cazares III, MD - 04/02/2024 10:18 AM EST Surgi-Bra on at all times. Keep paper tape in place remove pad dressings tomorrow. No heavy lifting greater then 15 lbs x 6 weeks documented in this encounter [facility] 04-02-2024 Surgical operation note Patient: Shakira Franklin Procedure Summary Date: 04/02/24 Room / Location: [address] Operating Room Anesthesia Start: 32 Anesthesia Stop: 1009 Procedures: REVISION LEFT BREAST RECONSTRUCTION WITH IMPLANT EXCHANGE, ALLODERM, MASTOPEXY, EXPLORATION OF RIGHT AXILLA WITH EXCISION OF NEUROMA AND TARGETED MUSCLE REINNERVATION IMPLANTATION BIOLOGICAL IMPLANT(ACELLULAR DERMAL MATRIX)SOFT TISSUE REINFORCEMENT(E.G.BREAST,TRUNK)ADD- ON TRANSFER, NERVE PEDICLE, STAGE 1 EXCISION, NEUROMA, CUTANEOUS NERVE 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 Anesthesia Post Evaluation Patient location during evaluation: PACU Patient participation: complete - patient participated Level of consciousness: sleepy but conscious Pain management: satisfactory to patient Multimodal analgesia pain management approach Airway patency: patent Two or more strategies used to mitigate risk of obstructive sleep apnea Cardiovascular status: acceptable and hemodynamically stable Respiratory status: acceptable, spontaneous ventilation and face mask Hydration status: acceptable There were no known notable events for this encounter. MIPS #430 PONV Patient received an inhalational anesthetic (4554F) Patient exhibits three or more risk factors for PONV (4556F) Patient received at [facility] 2 prophylactic Rx PONV anti-emtic agents of different classes preop and/or intraop (G9775) MIPS # 424 Perioperative Temperature Management Anesthesia time was 60 minutes or longer (4255F) Anesthesai administered was General (inhalational or TIVA) or Neuraxial block (X0424) At least one body temperature greater than 95.8F/35.5C achieved within the 30 mins immediately prior to or the 15 minutes immediately following anesthesia end time (G9771) MIPS #477 Multimodal Pain Management Not emergent case Patient was administered multimodal pain management (two or more drugs and/or interventions excluding systemic opioids) in the periopeartive period occurring at some time between 6 hours prior to anesthesia start time until discharged from PACU (G2148) MIPS #404 Anesthesiology Smoking Abstinence The patient is not a current smoker (e.g. cigarette, cigar, pipe, e-cigarette/vaping/marijuana) If no stop here (XX404) I completed my handoff to the receiving clinician during which we: 1. Identified the patient 2. Identified the responsible provider 3. Reviewed the pertinent medical history 4. Discussed the surgical course 5. Reviewed intra-op anesthesia management and issues during anesthesia 6. Set expectations for post-procedure period 7. Allowed opportunity for questions and acknowledgement of understanding. Associated Order(s): Airway Airway Date/Time: 04/02/2024 7:39 AM Urgency: scheduled Airway not difficult General Information and Staff Patient location during procedure: Procedural Resident/KLYSTROM TUBE TESTER: Yarelis Wise CRNA Performed: SRNA Indications and Patient Condition Indications for airway management: anesthesia Sedation level: Asleep Preoxygenated: yes Patient position: sniffing Mask difficulty assessment: 2 - vent by mask + OA or adjuvant +/- NMBA Final Airway Details Final airway type: endotracheal airway Successful airway: ETT Cuffed: yes (MOV) Successful intubation technique: direct laryngoscopy Facilitating devices/methods: intubating stylet Blade: Kane Blade size: #3 ETT size (mm): 7.0 Cormack-Lehane Classification: grade IIa - partial view of glottis Placement verified by: chest auscultation and capnometry Measured from: lips ETT to lips (cm): 22 Number of attempts at approach: 1 Additional Comments atraumatic Associated Order(s): Peripheral Block Peripheral Block Time Out: 04/02/2024 7:40 AM Patient location during procedure: Procedural Start time: 04/02/2024 7:40 AM End time: 04/02/2024 7:43 AM Reason for block: at surgeon's request and post-op pain management Staffing Performed: KLYSTROM TUBE TESTER Resident/KLYSTROM TUBE TESTER: CHAS Briseno CRNA Preanesthetic Checklist Completed: patient identified, IV checked, site marked, risks and benefits discussed, surgical consent, monitors and equipment checked, pre-op evaluation and timeout performed Region: [place] Primary: PEC1 (PEC 1) Secondary: PEC 2 Peripheral Block Patient position: supine Prep: ChloraPrep Patient monitoring: heart rate, information writer, continuous pulse ox and continuous capnometry O2: ETT/LMA Laterality: left Injection technique: single-shot Guidance: ultrasound guided -image retained in chart, tip of the needle identified by ultraound during injection. Needle Needle: 22G X 80 mm Additional Notes Bupivacaine 0.375%/ Epi 1:200,000/ Dex 0.1mg/mL 20ml pec2 Bupivacaine 0.375%/ Epi 1:200,000/ Dex 0.1mg/mL 10ml pec1 04/02/2024 7:40 AM Assessment Injection assessment: negative aspiration for heme and incremental injection Heart rate change: no Slow fractionated injection: yes Required Documentation: Relevant anatomy identified (Nerves, Vessels, Muscles), Negative for blood on aspiration, Local anesthetic injected incrementally with intermittent aspiration every 5 mL, Normal resistance with injection, Local anesthetic spread visualized around nerves or plane., No EKG changes noted, No symptoms of toxicity and Local anesthetic injected without difficultyMedications pprDXHHMjahlm-zsruloeppws-adyypcjrh ne (TAP) syringe - Injection 30 mL - 04/02/2024 7:40:00 AM Patient: Shakira Franklin Procedure Information Date/Time: 04/02/24 3030 Procedures: REVISION LEFT BREAST RECONSTRUCTION WITH IMPLANT EXCHANGE, ALLODERM, MASTOPEXY, EXPLORATION OF RIGHT AXILLA WITH EXCISION OF NEUROMA AND TARGETED MUSCLE REINNERVATION IMPLANTATION BIOLOGICAL IMPLANT(ACELLULAR DERMAL MATRIX)SOFT TISSUE REINFORCEMENT(E.G.BREAST,TRUNK)ADD- ON TRANSFER, NERVE PEDICLE, STAGE 1 Location: [facility] OR [address] [place] [address] Operating Room Surgeons: Jaya Cazares III, MD Relevant Problems Anesthesia (within normal limits) Past Medical History: Past Medical History: No date: Cancer (CMS/HCC) (HCC) Comment: right breast approx 2013 No date: MVP (mitral valve prolapse) No date: PVC's (premature ventricular contractions) No date: Rheumatic fever Past Surgical History: Past Surgical History: No date: APPENDECTOMY No date: BREAST BIOPSY; Right No date: BREAST SURGERY; Right Comment: LND No date: BREAST SURGERY; Right Comment: removal of implant, debridement, skin graft and fat transfer No date: COLONOSCOPY No date: EYE SURGERY; Right Comment: excision benign tumor No date: HYSTERECTOMY 2013: MASTECTOMY; Right Comment: with sentinel lymph nose biopsy with implanat No date: ORAL SURGERY, PROCEDURE (HISTORICAL) No date: TONSILLECTOMY No date: TUBAL LIGATION No date: WISDOM TOOTH EXTRACTION Social History: TOBACCO: reports that she has quit smoking. Her smoking use included cigarettes. She started smoking about 25 years ago. She has a 10 pack-year smoking history. She has never used smokeless tobacco. ETOH: reports current alcohol use of about 1.0 standard drink of alcohol per week. Social History Substance and Sexual Activity Drug Use Never Family History: No family history on file. Screening: Hysterectomy Clinical information reviewed: Tobacco Allergies Meds Surg Hx OB Status Physical Exam Airway Mallampati: II TM distance: >3 FB Neck ROM: full Mouth Open: normalendotracheal tube not in place Cardiovascular Dental (+) Upper Dentures Pulmonary Abdominal Anesthesia Plan patient is NPO appropriate Any family history or previous problems with anesthesia no ASA 2 general and regional Any family history or previous problems with anesthesia no The patient is not a current smoker. Anesthetic plan and risks discussed with patient. MELI Screening Labs: No results found for: WBC, HGB, HCT, MCV, PLT No results found for: SODIUM, NA, POTASSIUM, K, CHLORIDE, CL, CO2, BUN, CREATININE, GLUCOSE, CALCIUM, PROT, BILIRUBINFL, ALKPHOS, AST, ALT, EGFR, GLOB Pain Score: 4 No echocardiogram results found for the past 14 days No results found for this or any previous visit. Equipment Requests: Additional Equipment Requests Block Team documented in this encounter [facility] 04-02-2024 Procedure anesthe matilda Narrative Procedure Name Responsible Anesthesiologist Anesthesia Start Time Anesthesia Stop Time REVISION LEFT BREAST RECONSTRUCTION WITH IMPLANT EXCHANGE, ALLODERM, MASTOPEXY, EXPLORATION OF RIGHT AXILLA WITH EXCISION OF NEUROMA AND TARGETED MUSCLE REINNERVATION Edvin Zhang MD 04/02/24 0732 04/02/24 1010 Events Date Time Event Comment 04/02/2024 0648 AN Preop Started 0703 0730 In Room 0732 An Start 0732 An Start Data 0736 An Induction The patient was reevaluated immediately before moderate or deep sedation use and before anesthesia induction. 0739 An Intubation 0740 Anesthesia Ready 0755 Proc Start 0812 An Surgeon on Cuff 1002 Proc Fin 1004 An Extubation - Spontaneous ventilation - Patient suctioned - Airway removed without difficulty - Spontaneous ventilation maintained 1007 an stop data 1010 An Stop 1011 Out of Room Meds Name Total midazolam (Versed) injection 2 mg/2 mL 2 mg lidocaine PF (Xylocaine-MPF) local injec tion 2 % 100 mg propofol (Diprivan) injection 10 mg/mL 1 00 mg rocuronium (ZeMuron) 50 mg/5 mL injectio n 40 mg dexAMETHasone (Decadron) PF injection 10 mg/mL 10 mg esmolol (Brevibloc) 50 mg dexmedetomidine (Precedex) 40 mcg in sod ium chloride 0.9 % 10 mL injection 24 mcg ondansetron (Zofran) 2 mg/mL injection 4 mg phenylephrine syringe 1 mg/ 10 mL syring e (IV Push for HYPOTENSION) 360 mcg ketamine injection 10 mg/mL (50 mg/5 mL) prefilled syringe 40 mg ketorolac (Toradol) injection 30 mg 15 m g sugammadex (Bridion) 200 mg/2 mL injecti on 100 mg lrcQJTCLjedyf-mxjnaqdofmr-wgemexhkwcy (T AP) syringe 30 mL ceFAZolin in dextrose 4% (Ancef) IVPB 2, 000 mg 2,000 mg propofol (Diprivan) infusion 10 mg/mL 63 3.63 mg magnesium sulfate 2000mg in 50 mL IVPB p remix 2 g HYDROmorphone (Dilaudid) injection 2 mg/ mL 0.5 mg lactated Ringer's (LR) infusion 700 mL * Agents Name O2 N2O Air Isoflurane * Blood No blood administrations on file. Lines, Drains, and Airways Type Details Placement Removal Wound/Incision 04/02/24; N; Incisio n; Breast; Left, Lower 04/02/24 0000 by Shi Dailey RN Wound/Incision 04/02/24; N; Incisio n; Axilla; Right; neuroma excision 04/02/24 0000 by Shi Dailey RN Peripheral IV Placement Date: 04/02/24; Placement Time: 0630; Catheter Size: 20 G; Orientation: Left, Posterior; Location: Hand; Inserted by: Aliza Jara RN; Insertion Attempts: 1; Removal Date: 04/02/24; Removal Time: 1355 04/02/24 0630 by Savannah Jara RN 04/02/24 1355 by Carley Sheldon RN ETT Placement Date: 04/02/24; Placement Time: 0739 (created via procedure documentation); Type: ETT - single; Single Lumen Tube Size: 7 mm; Cuffed: Yes (MOV); Placement Verification: Auscultation, Capnometry; Airway Comments: atraumatic; Removal Date: 04/02/24; Removal Time: 1004 04/02/24 0739 by Yarelis Wise CRNA 04/02/24 1004 by Yarelis Wise CRNA [id number]iology procedure note* Anesthesia Procedure Notes - Yarelis Wise CRNA - 04/02/2024 7:54 AM ESTAssociated Order(s): Airway Airway Date/Time: 04/02/2024 7:39 AM Urgency: scheduled Airway not difficult General Information and Staff Patient location during procedure: Procedural Resident/KLYSTROM TUBE TESTER: Yarelis Wise CRNA Performed: SRNA Indications and Patient Condition Indications for airway management: anesthesia Sedation level: Asleep Preoxygenated: yes Patient position: sniffing Mask difficulty assessment: 2 - vent by mask + OA or adjuvant +/- NMBA Final Airway Details Final airway type: endotracheal airway Successful airway: ETT Cuffed: yes (MOV) Successful intubation technique: direct laryngoscopy Facilitating devices/methods: intubating stylet Blade: Kane Blade size: #3 ETT size (mm): 7.0 Cormack-Lehane Classification: grade IIa - partial view of glottis Placement verified by: chest auscultation and capnometry Measured from: lips ETT to lips (cm): 22 Number of attempts at approach: 1 Additional Comments atraumatic [facility]02-18-2025 NoteAirway Date/Time: 04/02/2024 7:39 AM Urgency: scheduled Airway not difficult General Information and Staff Patient location during procedure: Procedural Resident/KLYSTROM TUBE TESTER: Yarelis Wise CRNA Performed: SRNA Indications and Patient Condition Indications for airway management: anesthesia Sedation level: Asleep Preoxygenated: yes Patient position: sniffing Mask difficulty assessment: 2 - vent by mask + OA or adjuvant +/- NMBA Final Airway Details Final airway type: endotracheal airway Successful airway: ETT Cuffed: yes (MOV) Successful intubation technique: direct laryngoscopy Facilitating devices/methods: intubating stylet Blade: Kane Blade size: #3 ETT size (mm): 7.0 Cormack-Lehane Classification: grade IIa - partial view of glottis Placement verified by: chest auscultation and capnometry Measured from: lips ETT to lips (cm): 22 Number of attempts at approach: [address] [facility]02-18-2025 Anesthesiology procedure note* Anesthesia Procedure Notes - Yarelis Wise CRNA - 04/02/2024 7:39 AM EST Associated Order(s): Peripheral Block Peripheral Block Time Out: 04/02/2024 7:40 AM Patient location during procedure: Procedural Start time: 04/02/2024 7:40 AM End time: 04/02/2024 7:43 AM Reason for block: at surgeon's request and post-op pain management Staffing Performed: MABEL Resident/KLYSTROM TUBE TESTER: CHAS Briseno CRNA Preanesthetic Checklist Completed: patient identified, IV checked, site marked, risks and benefits discussed, surgical consent, monitors and equipment checked, pre-op evaluation and timeout performed Region: [place] Primary: PEC1 (PEC 1) Secondary: PEC 2 Peripheral Block Patient position: supine Prep: ChloraPrep Patient monitoring: heart rate, information writer, continuous pulse ox and continuous capnometry O2: ETT/LMA Laterality: left Injection technique: single-shot Guidance: ultrasound guided -image retained in chart, tip of the needle identified by ultraound during injection. Needle Needle: 22G X 80 mm Additional Notes Bupivacaine 0.375%/ Epi 1:200,000/ Dex 0.1mg/mL 20ml pec2 Bupivacaine 0.375%/ Epi 1:200,000/ Dex 0.1mg/mL 10ml pec1 04/02/2024 7:40 AM Assessment Injection assessment: negative aspiration for heme and incremental injection Heart rate change: no Slow fractionated injection: yes Required Documentation: Relevant anatomy identified (Nerves, Vessels, Muscles), Negative for blood on aspiration, Local anesthetic injected incrementally with intermittent aspiration every 5 mL, Normal resistance with injection, Local anesthetic spread visualized around nerves or plane., No EKG changes noted, No symptoms of toxicity and Local anesthetic injected without difficultyMedications izlMXSVUjjnsl-sidrjlyqdnz-ofmfbrjydkj (TAP) syringe - Injection 30 mL - 04/02/2024 7:40:00 AM [facility]02-18-2025 NotePeripheral Block Time Out: 04/02/2024 7:40 AM Patient location during procedure: Procedural Start time: 04/02/2024 7:40 AM End time: 04/02/2024 7:43 AM Reason for block: at surgeon's request and post-op pain management Staffing Performed: MABEL Resident/KLYSTROM TUBE TESTER: CHAS Briseno CRNA Preanesthetic Checklist Completed: patient identified, IV checked, site marked, risks and benefits discussed, surgical consent, monitors and equipment checked, pre-op evaluation and timeout performed Region: [place] Primary: PEC1 (PEC 1) Secondary: PEC 2 Peripheral Block Patient position: supine Prep: ChloraPrep Patient monitoring: heart rate, information writer, continuous pulse ox and continuous capnometry O2: ETT/LMA Laterality: left Injection technique: single-shot Guidance: ultrasound guided -image retained in chart, tip of the needle identified by ultraound during injection. Needle Needle: 22G X 80 mm Additional Notes Bupivacaine 0.375%/ Epi 1:200,000/ Dex 0.1mg/mL 20ml pec2 Bupivacaine 0.375%/ Epi 1:200,000/ Dex 0.1mg/mL 10ml pec1 04/02/2024 7:40 AM Assessment Injection assessment: negative aspiration for heme and incremental injection Heart rate change: no Slow fractionated injection: yes Required Documentation: Relevant anatomy identified (Nerves, Vessels, Muscles), Negative for blood on aspiration, Local anesthetic injected incrementally with intermittent aspiration every 5 mL, Normal resistance with injection, Local anesthetic spread visualized around nerves or plane., No EKG changes noted, No symptoms of toxicity and Local anesthetic injected without qtttgxlqnyPsdttfpbnlfcprENDEQkhxio-nkefqoagqrk-dqdhjhtfhww (TAP) syringe - Injection 30 mL - 04/02/2024 7:40:00 [id number] Note* Op Note - Jaya Cazares III, MD - 04/02/2024 7:30 AM EST Plastic & Reconstructive Surgery Operative Report Pre-operative Diagnosis: 1. Breast asymmetry after reconstruction 2. Right axillary neuroma symptomatic Post-operative Diagnosis: Same Procedure: 1. Revision of left breast reconstruction with removal and replacement of implant, capsulorrhaphy, and mastopexy. NAC pedicle was a superior pedicle. 2. Exploration of right axilla with excision of right axillary neuroma and targeted muscle reinnervation with sensory to motor epineurial anastomosis Surgeon: Jaya Cazares MD Water Control Supervisor(s): Marissa Cruz MD, Savita CUELLO Anesthesia: General Estimated blood loss: 15 cc Specimens: 1. Left breast tissue 2. Right axillary lymph nodes 3. Right axillary neuroma Implants: Implant removed was a 425 cc [place] implant and implant placed was a [place] memory gel smooth round high-profile 400 cc implant reference #[id number] with a base width of 12.2 cm Findings: See operative report Complications: None Condition: Stable Indications: Patient is a 63-year-old female with a history of right breast cancer who had a lumpectomy with implant and postoperative radiation. On her contralateral right side she had a previous periareolar mastopexy and implant placement. Over time she has developed ptosis and breast asymmetry between her cantwell and reconstructed in the breast. We discussed operative options and decided to proceed with a mastopexy and revision of her reconstruction on the left noncancer side. At the same time patient had chronic pain in the right axilla consistent with a neuroma. A preoperative block was placed in this area with resolution of her symptoms making me think surgical intervention would be beneficial for the patient. Description of Procedure: Patient was seen and evaluated in the preoperative area for her procedure. Preoperative markings were performed in the standard fashion. Patient localized the point of discomfort in her right axilla and this was marked on palpation a hard nodule was felt in this area. We also marked her breast for a superior pedicle mastopexy with a modified Esteves pattern. Risks/benefits were reviewed and informedconsent was obtained. They were then taken to the OR and placed supine on the operating room table.Cardiopulmonary monitoring was initiated and EPC cuffs were placed on her bilateral lower extremities. General anesthesia was induced by the anesthesia team. Under ultrasound guidance the anesthesia service performed a left pec block. The patient was then prepped and draped in standard sterile fashion. A surgical time out was performed by all members of the surgical staff. We first started on the left breast. Our incisions were anesthetized with local anesthesia and we decreased the size of the NAC to 4 cm with a round template. We then made all of our skin incisions with a scalpel and de-epithelialized the superior pedicle for our NAC. Next using Bovie cauterizationalong the inferior aspect of our superior pedicle we dissected directly down to the breast capsule, elevated our medial lateral pillars, and then amputated the lower pole of our Esteves pattern. This breast tissue was sent for pathology. Patient had a visible capsule with some thin pectoralis major muscle along the superior edge that was visible. I then excised a large portion of the lower capsule and discarded this. We then examined her submuscular cavity which looked normal. We then opened the junction between her chest wall and the undersurface of the pectoralis major muscle at the superior aspect of the capsule and elevated the pocket cranially to allow for better implant placement. The implant that was removed was 425 cc. I then placed a 400 cc sizer in the pocket and I felt we had nicesymmetry. The base width of this was 12.2 cm, I marked this off of the chest wall and plicated an ellipse of the lateral capsule to tighten the implant space. The edges of this capsule were cauterized for closure. This plication was performed with a 2- 0 PDS suture. I then replaced the sizer into the pocket and advanced the superior capsule to the inferior capsule of opening in the area where we ex cised. I felt with partial inferior capsule removal this to help really lift the implant up into our new more superior pocket. With the excellent support from her capsule I felt placing a piece of AlloDerm was not needed. We then inset the NAC advancing our superior flap into the superior position with a few simple 2- 0 silk sutures. The lateral aspect of the capsule was then closed with a running 2-0 PDS suture leaving an opening for implant placement. We then copiously irrigate out the operative pocket with antibiotic solution prepping the skin with our antibiotic solution as well. We then changed gloves and using a Gutierrez funnel and a no touch technique placed the new 400 cc implant into our pocket. We then finished closing the capsule to itself with the 2-0 PDS suture. We then brought our medial and lateral pillars together with a few interrupted 2-0 PDS sutures and then closed the breast parenchyma of the Esteves pattern to the inframammary fold with a number of interrupted 2-0 PDS sutures. We then closed the Esteves pattern and inset the NAC with multiple interrupted 3-0 Monocryl deep dermal sutures followed by a 3-0 Monocryl subcuticular stitch along the inframammary fold and a 4-0 Monocryl subcuticular stitch along the vertical and areolar incision. Next we went to the right axilla I used the patient's previous sentinel lymph node incision and anesthetized it with local anesthesia. Using a 15 blade scalpel a skin incision was made and we dissected through the skin and subcutaneous tissues with Bovie cauterization we then followed this path of scar tissue all the way down to the large scar tissue none that are palpated preoperatively. With careful dissection this area of scar was dissected out away from the surrounding axillary structures. The axillary vein was identified and a anterior branch of the artery and vein were going directly into the scar tissue. This is on the posterior aspect. Along the anterior aspect we dissected a few small vessels going into our scar and found a large intercostal likely, T2 branch going directly into this neuroma scar. On the posterior inferior aspect about 3 lymph nodes were identified with our scar tissue there were dissected away and sent for pathology. I then continued freeing up the scar tissue away from the surrounding vessels. The large branches off the axillary were controlled with auto clips and we have completely freed up this scar neuroma leaving is just attached to the intercostal branch. I then identified a small neurovascular bundle with a motor branch going into the inferior lateral aspect of the pectoralis major muscle. Identified this with the checkpoint nerve stimulator. I felt this was a posterior branch to perform targeted muscle reinnervation. We freed up the artery and vein off of the motor branch and controlled them with small clips and divided this branch. The neuroma was then cut away from the intercostal branch and sent for pathology. We then performed a sensory to motor epineurial anastomosis with a few interrupted 8-0 nylon sutures. We then irrigated outthe operative field confirm hemostasis, and sprayed about 4 cc of RTC into the pocket. We then closed the capsule palpebral fascia with a few figure of 8 , 2-0 Vicryl sutures. We then closed our incision with multiple interrupted 3-0 Monocryl deep dermal sutures followed by 4-0 Monocryl subcuticular stitch. We then placed paper tape over both our breast and axillary incisions and the patient was placed danyelle surgical bra with multiple fluffs and ABDs. The patient tolerated the procedure without any immediate complications, was extubated and taken tothe PACU in stable condition. At the end of the case all instrument, needle, and sponge counts werecorrect. Jaya Cazares MD [id number] Note* Op Note - Jaya Cazares III, MD - 04/02/2024 7:30 AM EST Plastic & Reconstructive Surgery Operative Report Pre-operative Diagnosis: 1. Breast asymmetry after reconstruction 2. Right axillary neuroma symptomatic Post-operative Diagnosis: Same Procedure: 1. Revision of left breast reconstruction with removal and replacement of implant, capsulorrhaphy, and mastopexy. NAC pedicle was a superior pedicle. 2. Exploration of right axilla with excision of right axillary neuroma and targeted muscle reinnervation with sensory to motor epineurial anastomosis Surgeon: Jaya Cazares MD Water Control Supervisor(s): Marissa Cruz MD, Savita CUELLO Anesthesia: General Estimated blood loss: 15 cc Specimens: 1. Left breast tissue 2. Right axillary lymph nodes 3. Right axillary neuroma Implants: Implant removed was a 425 cc [place] implant and implant placed was a [place] memory gel smooth round high-profile 400 cc implant reference #[id number] with a base width of 12.2 cm Findings: See operative report Complications: None Condition: Stable Indications: Patient is a 63-year-old female with a history of right breast cancer who had a lumpectomy with implant and postoperative radiation. On her contralateral right side she had a previous periareolar mastopexy and implant placement. Over time she has developed ptosis and breast asymmetry between her cantwell and reconstructed in the breast. We discussed operative options and decided to proceed with a mastopexy and revision of her reconstruction on the left noncancer side. At the same time patient had chronic pain in the right axilla consistent with a neuroma. A preoperative block was placed in this area with resolution of her symptoms making me think surgical intervention would be beneficial for the patient. Description of Procedure: Patient was seen and evaluated in the preoperative area for her procedure. Preoperative markings were performed in the standard fashion. Patient localized the point of discomfort in her right axilla and this was marked on palpation a hard nodule was felt in this area. We also marked her breast for a superior pedicle mastopexy with a modified Esteves pattern. Risks/benefits were reviewed and informedconsent was obtained. They were then taken to the OR and placed supine on the operating room table.Cardiopulmonary monitoring was initiated and EPC cuffs were placed on her bilateral lower extremities. General anesthesia was induced by the anesthesia team. Under ultrasound guidance the anesthesia service performed a left pec block. The patient was then prepped and draped in standard sterile fashion. A surgical time out was performed by all members of the surgical staff. We first started on the left breast. Our incisions were anesthetized with local anesthesia and we decreased the size of the NAC to 4 cm with a round template. We then made all of our skin incisions with a scalpel and de-epithelialized the superior pedicle for our NAC. Next using Bovie cauterizationalong the inferior aspect of our superior pedicle we dissected directly down to the breast capsule, elevated our medial lateral pillars, and then amputated the lower pole of our Esteves pattern. This breast tissue was sent for pathology. Patient had a visible capsule with some thin pectoralis major muscle along the superior edge that was visible. I then excised a large portion of the lower capsule and discarded this. We then examined her submuscular cavity which looked normal. We then opened the junction between her chest wall and the undersurface of the pectoralis major muscle at the superior aspect of the capsule and elevated the pocket cranially to allow for better implant placement. The implant that was removed was 425 cc. I then placed a 400 cc sizer in the pocket and I felt we had nicesymmetry. The base width of this was 12.2 cm, I marked this off of the chest wall and plicated an ellipse of the lateral capsule to tighten the implant space. The edges of this capsule were cauterized for closure. This plication was performed with a 2- 0 PDS suture. I then replaced the sizer into the pocket and advanced the superior capsule to the inferior capsule of opening in the area where we ex cised. I felt with partial inferior capsule removal this to help really lift the implant up into our new more superior pocket. With the excellent support from her capsule I felt placing a piece of AlloDerm was not needed. We then inset the NAC advancing our superior flap into the superior position with a few simple 2- 0 silk sutures. The lateral aspect of the capsule was then closed with a running 2-0 PDS suture leaving an opening for implant placement. We then copiously irrigate out the operative pocket with antibiotic solution prepping the skin with our antibiotic solution as well. We then changed gloves and using a Gutierrez funnel and a no touch technique placed the new 400 cc implant into our pocket. We then finished closing the capsule to itself with the 2-0 PDS suture. We then brought our medial and lateral pillars together with a few interrupted 2-0 PDS sutures and then closed the breast parenchyma of the Esteves pattern to the inframammary fold with a number of interrupted 2-0 PDS sutures. We then closed the Esteves pattern and inset the NAC with multiple interrupted 3-0 Monocryl deep dermal sutures followed by a 3-0 Monocryl subcuticular stitch along the inframammary fold and a 4-0 Monocryl subcuticular stitch along the vertical and areolar incision. Next we went to the right axilla I used the patient's previous sentinel lymph node incision and anesthetized it with local anesthesia. Using a 15 blade scalpel a skin incision was made and we dissected through the skin and subcutaneous tissues with Bovie cauterization we then followed this path of scar tissue all the way down to the large scar tissue none that are palpated preoperatively. With careful dissection this area of scar was dissected out away from the surrounding axillary structures. The axillary vein was identified and a anterior branch of the artery and vein were going directly into the scar tissue. This is on the posterior aspect. Along the anterior aspect we dissected a few small vessels going into our scar and found a large intercostal likely, T2 branch going directly into this neuroma scar. On the posterior inferior aspect about 3 lymph nodes were identified with our scar tissue there were dissected away and sent for pathology. I then continued freeing up the scar tissue away from the surrounding vessels. The large branches off the axillary were controlled with auto clips and we have completely freed up this scar neuroma leaving is just attached to the intercostal branch. I then identified a small neurovascular bundle with a motor branch going into the inferior lateral aspect of the pectoralis major muscle. Identified this with the checkpoint nerve stimulator. I felt this was a posterior branch to perform targeted muscle reinnervation. We freed up the artery and vein off of the motor branch and controlled them with small clips and divided this branch. The neuroma was then cut away from the intercostal branch and sent for pathology. We then performed a sensory to motor epineurial anastomosis with a few interrupted 8-0 nylon sutures. We then irrigated outthe operative field confirm hemostasis, and sprayed about 4 cc of RTC into the pocket. We then closed the capsule palpebral fascia with a few figure of 8 , 2-0 Vicryl sutures. We then closed our incision with multiple interrupted 3-0 Monocryl deep dermal sutures followed by 4-0 Monocryl subcuticular stitch. We then placed paper tape over both our breast and axillary incisions and the patient was placed danyelle surgical bra with multiple fluffs and ABDs. The patient tolerated the procedure without any immediate complications, was extubated and taken tothe PACU in stable condition. At the end of the case all instrument, needle, and sponge counts werecorrect. Jaya Cazares MD Plastic and Reconstructive Surgery [id number] Attending History and physical note* Jaya Cazares III, MD - 04/02/2024 7:17 AM EST H&P reviewed. The patient was examined and there are no changes to the H&P. Jaya Cazares MD Source Note - Sarah CookCHAS - PHARMACEUTICAL OFFICER - 03/26/2024 10:00 AM EST Images from the original note were not included. Comprehensive Pre Surgical History and Physical ? 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 Based on the above evaluation, the benefits of the planned procedure likely exceed the risks. The patient is medically optimized to proceed with the planned procedure without any further cardiopulmonary testing. 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] - Managed per surgery - Orders per PAT Protocol: EKG; 03/12/24 CBC, CMP reviewed, see below - METS >4, No further evaluation is required 2) MVP, PVC's - occasional palpitations, no CP or SOB - not followed by cardiology 3) Chronic Pain - MEDS: duloxetine, meloxicam, methocarbamol - Followed by Pain Management at [facility] 4) Hx Breast Cancer - dx 2013 - Followed annually by oncology at [facility] 5) Former Smoker - quit 9 yrs ago 6) Post-cholecystectomy diarrhea - MEDS: cholestyramine Visit Type: Pre-Admission Testing Visit Labs Ordered: NO - COMPLETE PRIOR TO PAT VISIT Sleep Referral Ordered: NO - NEGATIVE SCREEN PER SLEEP REFERRAL PROTOCOL Total time spent (which include face to face and non face to face encounters) : 30 minutes Toxic drug monitoring/narrow therapeutic index drug monitoring : # Drug name : NA # Route administered : NA # Method of monitoring : NA PAT Protocol referenced includes: 1. Anesthesia Lab Protocol Orders 2. Perioperative Cardiovascular Risk Assessment 3. Anesthesia Assessment 4. Pain Assessment and Acute Pain Service Consult (if appropriate) 5. Medical Clearance/Consult from Internal Medicine ([facility]) 6. Shower/Wash Order (for designated surgeries) 7. MELI Screen and Sleep Clinic Referral (if appropriate) History Of Present Illness: 63 y.o. female who we are asked to see/evaluate by Dr. Cazares for pre-operative evaluation prior to ? 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 Pt has hx breast cancer, dx in 2013 per her report. She does not have any new complaints. No recent illnesses. Denies CP, RICHARDSON, edema, orthopnea, PND, syncope or near syncope. Denies CAD, CO, stents, CHF, asthma, COPD, TIA/CVA, DVT/PE, seizures. She has hx MVP and PVCs, occasionally has palpitations, not followed by cardiology. Past Medical History: Past Medical History: No date: Cancer (CMS/HCC) (HCC) Comment: right breast approx 2013 No date: MVP (mitral valve prolapse) No date: PVC's (premature ventricular contractions) No date: Rheumatic fever Past Surgical History: Past Surgical History: No date: APPENDECTOMY No date: BREAST BIOPSY; Right No date: BREAST SURGERY; Right Comment: LND No date: BREAST SURGERY; Right Comment: removal of implant, debridement, skin graft and fat transfer No date: COLONOSCOPY No date: EYE SURGERY; Right Comment: excision benign tumor No date: HYSTERECTOMY 2013: MASTECTOMY; Right Comment: with sentinel lymph nose biopsy with implanat No date: ORAL SURGERY, PROCEDURE (HISTORICAL) No date: TONSILLECTOMY No date: TUBAL LIGATION No date: WISDOM TOOTH EXTRACTION Medications Prior to Admission: Current Outpatient Medications on File Prior to Visit Medication Sig Dispense Refill cholestyramine (Questran) 4 g packet Take 4 g by mouth 3 times daily (with meals). DULoxetine (Cymbalta) [address] capsule TAKE 1 capsule by mouth once a day for 30 days take 30 mg for one week, the may increase to 60 mg a day meloxicam (Mobic) 15 MG tablet daily with supper. methocarbamol (Robaxin) 500 MG tablet Take 500 mg by mouth 3 times daily as needed for muscle spasms. No current facility-administered medications on file prior to visit. CHRONIC NARCOTIC USE: No Do you have a history of chronic opioid use? Yes Allergies: Anastrozole, Exemestane, Tamoxifen, and Letrozole If patient has opioid allergy, is it okay to take Acetaminophen: Yes Social History: TOBACCO: reports that she has quit smoking. Her smoking use included cigarettes. She started smoking about 25 years ago. She has a 10 pack-year smoking history. She has never used smokeless tobacco. ETOH: reports current alcohol use of about 1.0 standard drink of alcohol per week. Social History Substance and Sexual Activity Drug Use Never Family History: No family history on file. REVIEW OF SYSTEMS: Review of Systems Constitutional: Negative for chills and fever. HENT: Negative for congestion and sore throat. Eyes: Negative for visual disturbance. Respiratory: Negative for cough and shortness of breath. Cardiovascular: Negative for chest pain, palpitations and leg swelling. Gastrointestinal: Positive for diarrhea. Negative for abdominal pain, nausea and vomiting. Genitourinary: Negative for difficulty urinating, dysuria and hematuria. Musculoskeletal: Positive for arthralgias and back pain. Negative for gait problem and neck stiffness. Skin: Negative for rash and wound. Allergic/Immunologic: Negative for immunocompromised state. Neurological: Negative for dizziness, seizures, syncope and numbness. Hematological: Does not bruise/bleed easily. Psychiatric/Behavioral: Negative for behavioral problems and confusion. Physical Exam: Physical Exam Constitutional: General: She is not in acute distress. Appearance: Normal appearance. She is normal weight. HENT: Head: Normocephalic and atraumatic. Mouth/Throat: Mouth: Mucous membranes are moist. Pharynx: Oropharynx is clear. No oropharyngeal exudate. Eyes: Pupils: Pupils are equal, round, and reactive to light. Cardiovascular: Rate and Rhythm: Normal rate and regular rhythm. Heart sounds: No murmur heard. No friction rub. No gallop. Pulmonary: Effort: Pulmonary effort is normal. Breath sounds: Normal breath sounds. No wheezing, rhonchi or rales. Abdominal: Palpations: Abdomen is soft. Tenderness: There is no abdominal tenderness. Musculoskeletal: Cervical back: Normal range of motion and neck supple. Comments: Moves all extremities Skin: General: Skin is warm and dry. Coloration: Skin is not jaundiced. Neurological: General: No focal deficit present. Mental Status: She is alert and oriented to person, place, and time. Psychiatric: Mood and Affect: Mood normal. Behavior: Behavior normal. Vitals: Vitals Value Taken Time BP 159/88 03/26/24 1010 Temp 36.7 C (98 F) 03/26/24 1010 Pulse 68 03/26/24 1010 Resp 16 03/26/24 1010 SpO2 97 % 03/26/24 1010 Labs: Aime's Simple Cardiac Risk Index: AIME'S SIMPLE CARDIAC RISK SCORE: 0 Interpretation: 0 Points Class I 0.5% 1 Point Class II 1.3% 2 Points Class III 3.6% 3+ Points Class IV 9.1% PAT Pain Score: Pain Score: 4 Postop Pain Management Plan (Pain consult ordered?): Chronic pain diagnosis - Pain consult recommended, will defer consult to surgical team. ? EKG: Encounter Date: 03/26/24 ECG 12 lead Result Value Heart Rate 62 QRSD Interval 85 QT Interval 417 QTC Interval 425 P [place] -34 QRS [place] -13 T Wave [place] 49 SC Interval 104 Impression Sinus rhythm Short SC interval Consider left ventricular hypertrophy ECHO and EF:None on file METS: >4, No further evaluation is required Electronically signed by: CHAS Hernandez CNP Date: 03/26/2024 at 11:44 AM Cosigned by Ty Neff DO at 03/26/2024 10:39 PM EST [employer] Phone: 1([phone] 390-119002-18-2025 NoteH&P reviewed. The patient was examined and there are no changes to the H&P. Jaya Cazares [facility]02-18-2025 History and physical note* Jaya Cazares III, MD - 04/02/2024 7:17 AM EST H&P reviewed. The patient was examined and there are no changes to the H&P. Jaya Cazares MD Source Note - CHAS Hernandez CNP - 03/26/2024 10:00 AM EST Images from the original note were not included. Comprehensive Pre Surgical History and Physical ? Name: Shakira Franklin : 1960 (Age-63 y.o.) Date of Service: Pt seen/examined on 03/26/2024 Procedure Information Date/Time: 04/02/24 0730 Procedures: REVISION LEFT BREAST RECONSTRUCTION WITH IMPLANT EXCHANGE, ALLODERM, MASTOPEXY, EXPLORATION OF RIGHT AXILLA WITH EXCISION OF NEUROMA AND TARGETED MUSCLE REINNERVATION IMPLANTATION BIOLOGICAL IMPLANT(ACELLULAR DERMAL MATRIX)SOFT TISSUE REINFORCEMENT(E.G.BREAST,TRUNK)ADD-ON TRANSFER, NERVE PEDICLE, STAGE 1 Location: [facility] OR [address] [place] [address] Operating Room Surgeons: Jaya Cazares III, MD Chief Complaint: 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 Based on the above evaluation, the benefits of the planned procedure likely exceed the risks. The patient is medically optimized to proceed with the planned procedure without any further cardiopulmonary testing. 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] - Managed per surgery - Orders per PAT Protocol: EKG; 03/12/24 CBC, CMP reviewed, see below - METS >4, No further evaluation is required 2) MVP, PVC's - occasional palpitations, no CP or SOB - not followed by cardiology 3) Chronic Pain - MEDS: duloxetine, meloxicam, methocarbamol - Followed by Pain Management at [facility] 4) Hx Breast Cancer - dx 2012 - Followed annually by oncology at [facility] 5) Former Smoker - quit 9 yrs ago 6) Post-cholecystectomy diarrhea - MEDS: cholestyramine Visit Type: Pre-Admission Testing Visit Labs Ordered: NO - COMPLETE PRIOR TO PAT VISIT Sleep Referral Ordered: NO - NEGATIVE SCREEN PER SLEEP REFERRAL PROTOCOL Total time spent (which include face to face and non face to face encounters) : 30 minutes Toxic drug monitoring/narrow therapeutic index drug monitoring : # Drug name : NA # Route administered : NA # Method of monitoring : NA PAT Protocol referenced includes: 1. Anesthesia Lab Protocol Orders 2. Perioperative Cardiovascular Risk Assessment 3. Anesthesia Assessment 4. Pain Assessment and Acute Pain Service Consult (if appropriate) 5. Medical Clearance/Consult from Internal Medicine (IMS) 6. Shower/Wash Order (for designated surgeries) 7. MELI Screen and Sleep Clinic Referral (if appropriate) History Of Present Illness: 63 y.o. female who we are asked to see/evaluate by Dr. Cazares for pre-operative evaluation prior to ? 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 Pt has hx breast cancer, dx in 2012 per her report. She does not have any new complaints. No recent illnesses. Denies CP, RICHARDSON, edema, orthopnea, PND, syncope or near syncope. Denies CAD, CO, stents, CHF, asthma, COPD, TIA/CVA, DVT/PE, seizures. She has hx MVP and PVCs, occasionally has palpitations, not followed by cardiology. Past Medical History: Past Medical History: No date: Cancer (CMS/HCC) (HCC) Comment: right breast approx 2013 No date: MVP (mitral valve prolapse) No date: PVC's (premature ventricular contractions) No date: Rheumatic fever Past Surgical History: Past Surgical History: No date: APPENDECTOMY No date: BREAST BIOPSY; Right No date: BREAST SURGERY; Right Comment: LND No date: BREAST SURGERY; Right Comment: removal of implant, debridement, skin graft and fat transfer No date: COLONOSCOPY No date: EYE SURGERY; Right Comment: excision benign tumor No date: HYSTERECTOMY 2013: MASTECTOMY; Right Comment: with sentinel lymph nose biopsy with implanat No date: ORAL SURGERY, PROCEDURE (HISTORICAL) No date: TONSILLECTOMY No date: TUBAL LIGATION No date: WISDOM TOOTH EXTRACTION Medications Prior to Admission: Current Outpatient Medications on File Prior to Visit Medication Sig Dispense Refill cholestyramine (Questran) 4 g packet Take 4 g by mouth 3 times daily (with meals). DULoxetine (Cymbalta) [address] capsule TAKE 1 capsule by mouth once a day for 30 days take 30 mg for one week, the may increase to 60 mg a day meloxicam (Mobic) 15 MG tablet daily with supper. methocarbamol (Robaxin) 500 MG tablet Take 500 mg by mouth 3 times daily as needed for muscle spasms. No current facility-administered medications on file prior to visit. CHRONIC NARCOTIC USE: No Do you have a history of chronic opioid use? Yes Allergies: Anastrozole, Exemestane, Tamoxifen, and Letrozole If patient has opioid allergy, is it okay to take Acetaminophen: Yes Social History: TOBACCO: reports that she has quit smoking. Her smoking use included cigarettes. She started smoking about 25 years ago. She has a 10 pack-year smoking history. She has never used smokeless tobacco. ETOH: reports current alcohol use of about 1.0 standard drink of alcohol per week. Social History Substance and Sexual Activity Drug Use Never Family History: No family history on file. REVIEW OF SYSTEMS: Review of Systems Constitutional: Negative for chills and fever. HENT: Negative for congestion and sore throat. Eyes: Negative for visual disturbance. Respiratory: Negative for cough and shortness of breath. Cardiovascular: Negative for chest pain, palpitations and leg swelling. Gastrointestinal: Positive for diarrhea. Negative for abdominal pain, nausea and vomiting. Genitourinary: Negative for difficulty urinating, dysuria and hematuria. Musculoskeletal: Positive for arthralgias and back pain. Negative for gait problem and neck stiffness. Skin: Negative for rash and wound. Allergic/Immunologic: Negative for immunocompromised state. Neurological: Negative for dizziness, seizures, syncope and numbness. Hematological: Does not bruise/bleed easily. Psychiatric/Behavioral: Negative for behavioral problems and confusion. Physical Exam: Physical Exam Constitutional: General: She is not in acute distress. Appearance: Normal appearance. She is normal weight. HENT: Head: Normocephalic and atraumatic. Mouth/Throat: Mouth: Mucous membranes are moist. Pharynx: Oropharynx is clear. No oropharyngeal exudate. Eyes: Pupils: Pupils are equal, round, and reactive to light. Cardiovascular: Rate and Rhythm: Normal rate and regular rhythm. Heart sounds: No murmur heard. No friction rub. No gallop. Pulmonary: Effort: Pulmonary effort is normal. Breath sounds: Normal breath sounds. No wheezing, rhonchi or rales. Abdominal: Palpations: Abdomen is soft. Tenderness: There is no abdominal tenderness. Musculoskeletal: Cervical back: Normal range of motion and neck supple. Comments: Moves all extremities Skin: General: Skin is warm and dry. Coloration: Skin is not jaundiced. Neurological: General: No focal deficit present. Mental Status: She is alert and oriented to person, place, and time. Psychiatric: Mood and Affect: Mood normal. Behavior: Behavior normal. Vitals: Vitals Value Taken Time BP 159/88 03/26/24 1010 Temp 36.7 C (98 F) 03/26/24 1010 Pulse 68 03/26/24 1010 Resp 16 03/26/24 1010 SpO2 97 % 03/26/24 1010 Labs: Aime's Simple Cardiac Risk Index: AIME'S SIMPLE CARDIAC RISK SCORE: 0 Interpretation: 0 Points Class I 0.5% 1 Point Class II 1.3% 2 Points Class III 3.6% 3+ Points Class IV 9.1% PAT Pain Score: Pain Score: 4 Postop Pain Management Plan (Pain consult ordered?): Chronic pain diagnosis - Pain consult recommended, will defer consult to surgical team. ? EKG: Encounter Date: 03/26/24 ECG 12 lead Result Value Heart Rate 62 QRSD Interval 85 QT Interval 417 QTC Interval 425 P [place] -34 QRS [place] -13 T Wave [place] 49 SC Interval 104 Impression Sinus rhythm Short SC interval Consider left ventricular hypertrophy ECHO and EF:None on file METS: >4, No further evaluation is required Electronically signed by: CHAS Hernandez CNP Date: 03/26/2024 at 11:44 AM Cosigned by Ty Neff DO at 03/26/2024 10:39 PM EST documented in this [facility]02-11-2025 Anesthesiology Preoperative evaluation and management note* Anesthesia Preprocedure Evaluation - Mikayla Mays, CHAS - KLYSTROM TUBE TESTER - 03/26/2024 10:36 AM EST Patient: Shakira Franklin Procedure Information Date/Time: 04/02/24 5412 Procedures: REVISION LEFT BREAST RECONSTRUCTION WITH IMPLANT EXCHANGE, ALLODERM, MASTOPEXY, EXPLORATION OF RIGHT AXILLA WITH EXCISION OF NEUROMA AND TARGETED MUSCLE REINNERVATION IMPLANTATION BIOLOGICAL IMPLANT(ACELLULAR DERMAL MATRIX)SOFT TISSUE REINFORCEMENT(E.G.BREAST,TRUNK)ADD-ON TRANSFER, NERVE PEDICLE, STAGE 1 Location: [address] Operating Room Surgeons: Jaya Cazares III, MD Relevant Problems Anesthesia (within normal limits) Past Medical History: Past Medical History: No date: Cancer (CMS/HCC) (HCC) Comment: right breast approx 2013 No date: MVP (mitral valve prolapse) No date: PVC's (premature ventricular contractions) No date: Rheumatic fever Past Surgical History: Past Surgical History: No date: APPENDECTOMY No date: BREAST BIOPSY; Right No date: BREAST SURGERY; Right Comment: LND No date: BREAST SURGERY; Right Comment: removal of implant, debridement, skin graft and fat transfer No date: COLONOSCOPY No date: EYE SURGERY; Right Comment: excision benign tumor No date: HYSTERECTOMY 2013: MASTECTOMY; Right Comment: with sentinel lymph nose biopsy with implanat No date: ORAL SURGERY, PROCEDURE (HISTORICAL) No date: TONSILLECTOMY No date: TUBAL LIGATION No date: WISDOM TOOTH EXTRACTION Social History: TOBACCO: reports that she has quit smoking. Her smoking use included cigarettes. She started smoking about 25 years ago. She has a 10 pack-year smoking history. She has never used smokeless tobacco. ETOH: reports current alcohol use of about 1.0 standard drink of alcohol per week. Social History Substance and Sexual Activity Drug Use Never Family History: No family history on file. Screening: Hysterectomy Clinical information reviewed: Tobacco Allergies Meds Surg Hx OB Status Physical Exam Airway Mallampati: II TM distance: >3 FB Neck ROM: full Mouth Open: normalendotracheal tube not in place Cardiovascular Dental (+) Upper Dentures Pulmonary Abdominal Anesthesia Plan patient is NPO appropriate Any family history or previous problems with anesthesia no ASA 2 general and regional Any family history or previous problems with anesthesia no The patient is not a current smoker. Anesthetic plan and risks discussed with patient. MELI Screening Labs: No results found for: WBC, HGB, HCT, MCV, PLT No results found for: SODIUM, NA, POTASSIUM, K, CHLORIDE, CL, CO2, BUN, CREATININE, GLUCOSE, CALCIUM, PROT, BILIRUBINFL, ALKPHOS, AST, ALT, EGFR, GLOB Pain Score: 4 No echocardiogram results found for the past 14 days No results found for this or any previous visit. Equipment Requests: Additional Equipment Requests [employer] Phone: [phone] NotePatient: Shakira Franklin Procedure Information Date/Time: 04/02/24729 Procedures: REVISION LEFT BREAST RECONSTRUCTION WITH IMPLANT EXCHANGE, ALLODERM, MASTOPEXY, EXPLORATION OF RIGHT AXILLA WITH EXCISION OF NEUROMA AND TARGETED MUSCLE REINNERVATION IMPLANTATION BIOLOGICAL IMPLANT(ACELLULAR DERMAL MATRIX)SOFT TISSUE REINFORCEMENT(E.G.BREAST,TRUNK)ADD-ON TRANSFER, NERVE PEDICLE, STAGE 1 Location: [facility] OR [address] [place] [address] Operating Room Surgeons: Jaya Cazares III, MD Relevant Problems Anesthesia (within normal limits) Past Medical History: Past Medical History: No date: Cancer (CMS/HCC) (HCC) Comment: right breast approx 2013 No date: MVP (mitral valve prolapse) No date: PVC's (premature ventricular contractions) No date: Rheumatic fever Past Surgical History: Past Surgical History: No date: APPENDECTOMY No date: BREAST BIOPSY; Right No date: BREAST SURGERY; Right Comment: LND No date: BREAST SURGERY; Right Comment: removal of implant, debridement, skin graft and fat transfer No date: COLONOSCOPY No date: EYE SURGERY; Right Comment: excision benign tumor No date: HYSTERECTOMY 2013: MASTECTOMY; Right Comment: with sentinel lymph nose biopsy with implanat No date: ORAL SURGERY, PROCEDURE (HISTORICAL) No date: TONSILLECTOMY No date: TUBAL LIGATION No date: WISDOM TOOTH EXTRACTION Social History: TOBACCO: reports that she has quit smoking. Her smoking use included cigarettes. She started smoking about 25 years ago. She has a 10 pack-year smoking history. She has never used smokeless tobacco. ETOH: reports current alcohol use of about 1.0 standard drink of alcohol per week. Social History Substance and Sexual Activity Drug Use Never Family History: No family history on file. Screening: Hysterectomy Clinical information reviewed: Tobacco Allergies Meds Surg Hx OB Status Physical Exam Airway Mallampati: II TM distance: >3 FB Neck ROM: full Mouth Open: normalendotracheal tube not in place Cardiovascular Dental (+) Upper Dentures Pulmonary Abdominal Anesthesia Plan patient is NPO appropriate Any family history or previous problems with anesthesia no ASA 2 general and regional Any family history or previous problems with anesthesia no The patient is not a current smoker. Anesthetic plan and risks discussed with patient. MELI Screening Labs: No results found for: WBC, HGB, HCT, MCV, PLT No results found for: SODIUM, NA, POTASSIUM, K, CHLORIDE, CL, CO2, BUN, CREATININE, GLUCOSE, CALCIUM, PROT, BILIRUBINFL, ALKPHOS, AST, ALT, EGFR, GLOB Pain Score: 4 No echocardiogram results found for the past 14 days No results found for this or any previous visit. Equipment Requests: Additional Equipment Requests [facility]02-11-2025 NoteComprehensive Pre Surgical History and Physical ? 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 Based on the above evaluation, the benefits of the planned procedure likely exceed the risks. The patient is medically optimized to proceed with the planned procedure without any further cardiopulmonary testing. 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] - Managed per surgery - Orders per PAT Protocol: EKG; 03/12/24 CBC, CMP reviewed, see below - METS >4, No further evaluation is required 2) MVP, PVC's - occasional palpitations, no CP or SOB - not followed by cardiology 3) Chronic Pain - MEDS: duloxetine, meloxicam, methocarbamol - Followed by Pain Management at [facility] 4) Hx Breast Cancer - dx 2012 - Followed annually by oncology at [facility] 5) Former Smoker - quit 9 yrs ago 6) Post-cholecystectomy diarrhea - MEDS: cholestyramine Visit Type: Pre-Admission Testing Visit Labs Ordered: NO - COMPLETE PRIOR TO PAT VISIT Sleep Referral Ordered: NO - NEGATIVE SCREEN PER SLEEP REFERRAL PROTOCOL Total time spent (which include face to face and non face to face encounters) : 30 minutes Toxic drug monitoring/narrow therapeutic index drug monitoring : # Drug name : NA # Route administered : NA # Method of monitoring : NA PAT Protocol referenced includes: 1. Anesthesia Lab Protocol Orders 2. Perioperative Cardiovascular Risk Assessment 3. Anesthesia Assessment 4. Pain Assessment and Acute Pain Service Consult (if appropriate) 5. Medical Clearance/Consult from Internal Medicine (IMS) 6. Shower/Wash Order (for designated surgeries) 7. MELI Screen and Sleep Clinic Referral (if appropriate) History Of Present Illness: 63 y.o. female who we are asked to see/evaluate by Dr. Cazares for pre-operative evaluation prior to ? 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 Pt has hx breast cancer, dx in 2013 per her report. She does not have any new complaints. No recent illnesses. Denies CP, RICHARDSON, edema, orthopnea, PND, syncope or near syncope. Denies CAD, CO, stents, CHF, asthma, COPD, TIA/CVA, DVT/PE, seizures. She has hx MVP and PVCs, occasionally has palpitations, not followed by cardiology. Past Medical History: Past Medical History: No date: Cancer (CMS/HCC) (HCC) Comment: right breast approx 2013 No date: MVP (mitral valve prolapse) No date: PVC's (premature ventricular contractions) No date: Rheumatic fever Past Surgical History: Past Surgical History: No date: APPENDECTOMY No date: BREAST BIOPSY; Right No date: BREAST SURGERY; Right Comment: LND No date: BREAST SURGERY; Right Comment: removal of implant, debridement, skin graft and fat transfer No date: COLONOSCOPY No date: EYE SURGERY; Right Comment: excision benign tumor No date: HYSTERECTOMY 2013: MASTECTOMY; Right Comment: with sentinel lymph nose biopsy with implanat No date: ORAL SURGERY, PROCEDURE (HISTORICAL) No date: TONSILLECTOMY No date: TUBAL LIGATION No date: WISDOM TOOTH EXTRACTION Medications Prior to Admission: Current Outpatient Medications on File Prior to Visit Medication Sig Dispense Refill cholestyramine (Questran) 4 g packet Take 4 g by mouth 3 times daily (with meals). DULoxetine (Cymbalta) (more content not included)...[facility] 03-26-2024 NoteComprehensive Pre Surgical History and Physical ? 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 Based on the above evaluation, the benefits of the planned procedure likely exceed the risks. The patient is medically optimized to proceed with the planned procedure without any further cardiopulmonary testing. 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] - Managed per surgery - Orders per PAT Protocol: EKG; 03/12/24 CBC, CMP reviewed, see below - METS >4, No further evaluation is required 2) MVP, PVC's - occasional palpitations, no CP or SOB - not followed by cardiology 3) Chronic Pain - MEDS: duloxetine, meloxicam, methocarbamol - Followed by Pain Management at [facility] 4) Hx Breast Cancer - dx 2012 - Followed annually by oncology at [facility] 5) Former Smoker - quit 9 yrs ago 6) Post-cholecystectomy diarrhea - MEDS: cholestyramine Visit Type: Pre-Admission Testing Visit Labs Ordered: NO - COMPLETE PRIOR TO PAT VISIT Sleep Referral Ordered: NO - NEGATIVE SCREEN PER SLEEP REFERRAL PROTOCOL Total time spent (which include face to face and non face to face encounters) : 30 minutes Toxic drug monitoring/narrow therapeutic index drug monitoring : # Drug name : NA # Route administered : NA # Method of monitoring : NA PAT Protocol referenced includes: 1. Anesthesia Lab Protocol Orders 2. Perioperative Cardiovascular Risk Assessment 3. Anesthesia Assessment 4. Pain Assessment and Acute Pain Service Consult (if appropriate) 5. Medical Clearance/Consult from Internal Medicine (IMS) 6. Shower/Wash Order (for designated surgeries) 7. MELI Screen and Sleep Clinic Referral (if appropriate) History Of Present Illness: 63 y.o. female who we are asked to see/evaluate by Dr. Cazares for pre-operative evaluation prior to ? 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 Pt has hx breast cancer, dx in 2012 per her report. She does not have any new complaints. No recent illnesses. Denies CP, RICHARDSON, edema, orthopnea, PND, syncope or near syncope. Denies CAD, CO, stents, CHF, asthma, COPD, TIA/CVA, DVT/PE, seizures. She has hx MVP and PVCs, occasionally has palpitations, not followed by cardiology. Past Medical History: Past Medical History: No date: Cancer (CMS/HCC) (HCC) Comment: right breast approx 2013 No date: MVP (mitral valve prolapse) No date: PVC's (premature ventricular contractions) No date: Rheumatic fever Past Surgical History: Past Surgical History: No date: APPENDECTOMY No date: BREAST BIOPSY; Right No date: BREAST SURGERY; Right Comment: LND No date: BREAST SURGERY; Right Comment: removal of implant, debridement, skin graft and fat transfer No date: COLONOSCOPY No date: EYE SURGERY; Right Comment: excision benign tumor No date: HYSTERECTOMY 2013: MASTECTOMY; Right Comment: with sentinel lymph nose biopsy with implanat No date: ORAL SURGERY, PROCEDURE (HISTORICAL) No date: TONSILLECTOMY No date: TUBAL LIGATION No date: WISDOM TOOTH EXTRACTION Medications Prior to Admission: Current Outpatient Medications on File Prior to Visit Medication Sig Dispense Refill cholestyramine (Questran) 4 g packet Take 4 g by mouth 3 times daily (with meals). DULoxetine (Cymbalta) (more content not included)...[facility] 03-24-2024 [facility]02-[facility] History of Present illness Narrative* Mainor Ayala MD - 03/24/2024 10:07 AM EST HISTORY AND PHYSICAL Shakira Franklin 1960 REFERRING PHYSICIAN: Cheryl Fisher, APR* CHIEF COMPLAINT: Consult (COLONOSCOPY) HPI: The patient is a 63 year old female with a complaint of diarrhea/loose stools which have been relatively chronic since she was treated for acute appendicitis. The patient underwent a laparoscopic appendectomy in December 2023. She has noted looser stools since that time. Initially she was experiencing 1-2 loose stools per day but that it increased to 6-7 loose stools per day. She describes the diarrhea as watery. She denies blood in her stools. She has noted approximately a 10 pound weight loss and some poor appetite. She had tried [id number] Imodium that was not improving her symptoms. She denies true steatorrhea She saw Cheyrl Fisher on March 12, 2024. She obtained C. difficile toxin, ova and parasites, calprotectin and laboratory studies. C. difficile toxin and ova and parasites were negative, calprotectin was somewhat elevated. Celiac panel was negative. She was prescribed Lomotil which had improved her diarrhea to when I saw her to 1-2 bowel movements per day but still has a somewhat decreased appetite. The patient has recently completed treatment for breast cancer and is scheduled for breast reconstruction surgery on April 02. She underwent colonoscopy in 2013. This was unremarkable. She noted 3 months of loose stools following the bowel prep for colonoscopy. She had a Cologuard test in April 2023 which was negative The patient is being seen by me today at the request of Cheryl Fisher, APR* my opinion and advice regarding diarrhea following appendectomy. PAST MEDICAL HISTORY Diagnosis Date Abnormal uterine bleeding (AUB) 2001 Hysterectomy Breast cancer (HCC) 03/06/2017 Lump or mass in breast left breast Malignant neoplasm of right breast in female, estrogen receptor positive (HCC) 03/06/2017 Mitral valve prolapse PVC (premature ventricular contraction) Smoker Supraventricular tachycardia (HCC) 11/23/2020 PAST SURGICAL HISTORY Procedure Laterality Date AXILLARY LYMPHADENECTOMY 07/31/2012 right axilla BREAST AUGMENTATION W/PROSTHETIC IMPLANT 1999 BREAST BIOPSY CORE 05/30/2012 right breast BREAST BIOPSY CORE 06/06/2012 right breast BREAST RECONSTRUCTION 07/19/2012 right breast single step implant CARPAL TUNNEL Bilateral wrists COLONOSCOPY FLX DX W/COLLJ SPEC WHEN PFRMD 01/01/2013 Normal colonoscopy-5 year followup - family history COLONOSCOPY FLX DX W/COLLJ SPEC WHEN PFRMD 05/08/2013 Colonoscopy EGD TRANSORAL BIOPSY SINGLE/MULTIPLE 01/01/2013 gastritis FNA UNDER GUIDANCE 06/06/2012 right breast by ultrasound INCISE FINGER TENDON SHEATH Right 09/18/2019 Right trigger thumb release LIG/TRNSXJ FLP TUBE ABDL/VAG APPR UNI/BI 1984 MASTECTOMY, SIMPLE, COMPLETE 07/19/2012 right breast with SLND PAST SURGICAL HISTORY OF oral surgery PAST SURGICAL HISTORY OF removal of pingula left eye TONSILLECTOMY HX VAGINAL HYSTERECTOMY UTERUS 250 GM/< 2001 AUB, possible abnormal pap prior to hysterectomy Current Outpatient Medications Medication Sig diphenoxylate-atropine (LOMOTIL) 2.5-0.025 mg per tablet Take 1 tablet by mouth four times a day asneeded for diarrhea for up to 7 days. naproxen (NAPROSYN) 500 mg tablet Take 1 tablet by mouth three times a day with meals. Take with food. cyclobenzaprine (FLEXERIL) 10 mg tablet Take 1 tablet by mouth three times a day as needed for muscle spasm. gabapentin (NEURONTIN) 300 mg capsule Take 300 mg by mouth once daily. biotin 1 mg cap Take by mouth. vitamin B complex (VITAMIN B-100 COMPLEX ORAL) Take 1 tablet by mouth once daily. fluocinonide (LIDEX) 0.05 % cream Apply to affected area two times a day as needed (for areas of rash, limit to not more than 2 weeks use at a time.). multivit-min/vit C/herb no.124 (AIRBORNE GUMMY ORAL) Take by mouth. cholestyramine (QUESTRAN) 4 gram packet Take 1 Packet by mouth three times a day with meals. No current facility-administered medications for this visit. ALLERGIES: Arimidex [Anastrozole], Aromasin [Exemestane], Tamoxifen, and Letrozole PERSONAL HISTORY: Social History Tobacco Use Smoking status: Former Current packs/day: 0.00 Average packs/day: 0.5 packs/day for 12.0 years (6.0 ttl pk-yrs) Types: Cigarettes Start date: 08/31/2009 Quit date: 08/31/2021 Years since quittin.5 Smokeless tobacco: Never Tobacco comments: relapsed 10/2020 Vaping Use Vaping status: Never Used Substance Use Topics Alcohol use: Not Currently Comment: once a month, 1 drink Drug use: Not Currently Comment: History of remote cocaine use(as young adult) FAMILY HISTORY: FAMILY HISTORY Problem Relation Age of Onset Anesthesia Father Macular Degen Father other (Other) Father Colon Cancer Father 60 Skin Cancer Father Allergies Mother Heart Mother Hypertension Mother Stroke Mother Hypertension Sister Blindness Sister Lymphoma Sister Allergies Sister other (non-hodgkins lymphoma) Sister other ([place] Syndrome) Sister Heart Attack Brother 57 other (Leukemia) Paternal Aunt Colon Cancer Paternal Uncle dx 70's other (Leukemia) Paternal Uncle Breast Cancer Other maternal aunt, in her 60's Prostate Cancer Other paternal cousin Cancer Other paternal first cousin dx lacrimal sac tumor d. 25 Cancer Other /paternal first cousin dx tumor size of cabbage on chest wall REVIEW OF SYMPTOMS: The review of systems data was entered by the nurse and reviewed by me There are no exam notes on file for this visit. PHYSICAL EXAMINATION: General: The patient is 63 year old female, well nourished, well hydrated in no acute distress. Thepatient is oriented to time, place, and person. VITALS: Pulse 72, temperature 36.2 C (97.2 F), weight 70.6 kg (155 lb 9.6 oz), SpO2 94%. HEENT: Normal cephalic, ataumatic, pupils are equally round, sclera are anicteric, mucous membranesare moist, oropharynx is clear. Neck has no masses, asymmetry or lymphadenopathy. Thyroid is unremarkable. Respiratory: Clear to auscultation and percussion. Normal respiratory excursion and pattern. Cardiac: Examination is regular rate and rhythm. Abdominal exam: Soft, nontender, with no palpable masses. No hepatosplenomegaly. No palpable hernias. Rectal exam: exam deferred Extremities: no clubbing, cyanosis or edema. No adenopathy. Other: LABORATORY VALUES: As Noted RADIOLOGIC STUDIES: As Noted Assessment IMPRESSION: Diarrhea following appendectomy, antibiotic use PLAN: I ordered enteric pathogens and C. difficile by PCR both of which returned as negative. I contacted the patient Monday morning and left a message on her phone indicating that since there is no return of positive enterics that I feel is appropriate for her to continue antidiarrheal medications. I have also ordered cholestyramine and recommended probiotics to see if we can repopulate her microbiome to get her back to baseline normal stools. Diagnoses: (K52.9) Chronic diarrhea (Z12.11) Colon cancer screening My findings have been communicated to Cheryl Fisher via shared medical record. This note will be forwarded to Christiano Wooten MD. Return to Clinic: The patient is instructed to follow-up with me as needed. Mainor Ayala MD * Corazon Valenzuela RN - 03/21/2024 3:52 PM EST REVIEW OF SYSTEMS: General: The patient denies fatigue, denies weight loss, denies weight gain, denies feeling hot, and denies feelings of cold. Eyes: The patient denies glaucoma, denies eye injury/surgery, wears glasses or contacts. Ear/Nose/Throat: The patient denies allergies, denies hayfever, denies ear infections, and denies bloody noses. Cardiovascular: The patient denies chest pain, NOTES heart disease, denies high blood pressure,denies cardiac stent, denies prior heart attack, denies irregular heart beat, denies high cholesterol, denies poor circulation, denies heart failure, other cardiac issues, denies claudication, denies coldfeet, denies peripheral arterial stent. Respiratory: The patient denies tuberculosis, denies pneumonia, denies frequent cough, denies pulmonary embolism, denies shortness of breath, and denies coughing up blood. Gastrointestinal: The patient denies difficulty swallowing, denies acid reflux, denies ulcers, denies vomiting, denies jaundice/hepatitis, denies gallbladder problems, denies black or tarry stools, denies hemorrhoids, denies bleeding from rectum, denies diverticulitis, denies constipation, denies diarrhea, denies loss of stool control, and denies hernias. Kidney/Bladder: The patient denies kidney stones, denies urine infections, and denies bloody urine. Skin: The patient denies a history of skin cancer, denies bleeding/changing moles, and denies a history of skin rash. Neurologic: The patient denies a history of epilepsy/convulsions, denies headaches, denies head/spinal injuries, and denies stroke/TIA. Psychiatric: The patient denies psychiatric medications, denies depression, and denies voices, denies substance abuse. Endocrine: The patient denies thyroid disorders, denies diabetes, and denies hormonal problems. Hematologic: The patient denies a history of bruising, denies bleeding, and denies anemia, denies blood clots. Infections: The patient denies a history of measles and mumps, denies rheumatic fever, and denies sexually transmitted diseases. Musculoskeletal: The patient denies back pain/injury, denies back problems, denies sciatica, deniesknee/foot trouble, denies arthritis, or denies gout. When was patient's last Mammogram screening? N/A Last Colonoscopy: 05/08/2013 Corazon Valenzuela RN documented in this [facility]Bl[facility] Note[facility]02-07-2025 History of Present illness Narrative* Jonas Ambrosio, PT - 03/22/2024 2:18 PM EST Images from the original note were not included. Episode Visit Count: 4 Therapist That Will Accept/Oversee The Plan Of Care: Jonas Ambrosio PT Start of Care Date: 02/29/24 Onset Date: 08/22/23 Plan of Care Certification Date: 01/11/19 Next Certification Due Date: 03/08/19 Patient Identified by Name and Date of : Yes REHABILITATION AND SPORTS THERAPY PHYSICAL THERAPY DISCONTINUANCE OF CARE PLAN OF CARE UPDATE: Assessment: Shakira Franklin is discontinued from Physical Therapy services due to maximal benefit.. Patient was seen for 4 visits from Start of Care Date: 02/29/24 to 03/22/2024 and treatment included: Therapeutic exercise. Goals for Episode of Care: established 02/29/24 [place] in home exercise program. Patient will decrease pain rating by 2 points to meet minimal clinical important difference for numeric pain rating scale. Perform sleeping without pain. Increased strength of L hip to 5/5 for improved L hip stability with ADL's and decreased pain Normal gait. Patient Goals: Reduce the pain SUBJECTIVE: The exercises have not helped. Hoping to find out why she is feeling her symptoms. Going to have another appointment soon for her symptoms.. Patient Goals: Reduce the pain Functional Limitations: walking Prior Level of Function: Independent without limitations Intake Information: Prescription present Previous Treatment: Steroids , Muscle relaxer Pain: Pain Pain Level: 4 Pain Location: Knee - Left, Hip - Left PROMIS Scales 10/08/2023 09/27/2023 09/11/2023 Higher is Better Phys Func - T Score Incomplete 39 (moderate dysfunction) Phys Func - Percentile 14 Self-Eff Symptom - T Score Incomplete 09/11/2023 Lower is Better Pain Interference - T Score 64 (moderate) Pain Interference - Percentile 8 T-scores: mean of general population = 50. 5 points is clinically meaningfully difference Percentiles provide an indication of how the patient's score ranks in relation to the general population. Higher percentile rankings indicate better function/quality of life. 50th percentile is the average of the general population and indicates half of respondents had a worse score. OBJECTIVE MEASURES WITH LEVEL OF FUNCTION: Posture / Alignment Posture: Fair Lumbar Spine AROM Lumbar Flexion: Normal Lumbar Extension: Normal Lumbar R Side-Bend: Normal, Increased pain Lumbar L Side-Bend: Increased pain, Normal LE AROM L Hip Flexion: 100 Degrees (Increased pain with repetition) LE Strength L Hip Flexion (L2): 4-/5 L Knee Extension (L3): 4+/5 L Knee Flexion: 4/5 L Ankle Dorsiflexion (L4): 4+/5 Gait Gait Observation: WNL TREATMENT: Therapeutic Exercise: 1: All objective measures taken this session Skilled Intervention: Patient was educated in proper exercise technique and purpose for exercises. Correct performance of therapeutic exercises was facilitated with verbal cuing. Billing Therapeutic Exercise Treatment Minutes: 25 Skilled Treatment Time Minutes (timed and untimed codes): 25 Total Session Time (minutes): 25 Session Start Time : 1418 Session Stop Time : 1443 Jonas Ambrosio PT documented in this encounterBlanchard [facility]02-06-[facility] NoteCh[facility]01-31-2025 NoteCh[facility]01-31-2025 History of Present illness Narrative* Jonas Ambrosio PT - 03/15/2024 2:18 PM EST Episode Visit Count: 3 Therapist That Will Accept/Oversee The Plan Of Care: Jonas Ambrosio PT Start of Care Date: 02/29/24 Onset Date: 08/22/23 Plan of Care Certification Date: 01/11/19 Next Certification Due Date: 03/08/19 Patient Identified by Name and Date of : Yes REHABILITATION AND SPORTS THERAPY PHYSICAL THERAPY TREATMENT NOTE ASSESSMENT: Shakira Franklin tolerated the session with fatigue and expected muscle soreness. She demonstrated difficulty with endurance with exercise. The patient will continue to benefit from ongoingskilled physical therapy to progress toward set goals. PLAN FOR NEXT VISIT: L gluteal and hip flexor strengthening SUBJECTIVE: Pt reports that her surgery is moving it up to 04/02. Pt states that she had to stop allof her medications due to being really sick and so she is extra painful. Pain: Pain Pain Level: 4 Pain Location: Knee - Left, Hip - Left OBJECTIVE MEASURES WITH LEVEL OF FUNCTION: Quad lag with SLR TREATMENT: Therapeutic Exercise: 1: Supine SLR 3x5 LLE 2: Bridges 3x5 3: Sidleying clamshells 3x5 LLE 4: Sidelying hip abduction 2x5 LLE 5: Seated marching 2x10 LLE 6: LAQ 2x10 LLE Skilled Intervention: Patient was educated in proper exercise technique and purpose for exercises. Skilled judgment was used in selection of appropriate interventions. Correct performance of therapeutic exercises was facilitated with verbal and visual cuing. Billing Therapeutic Exercise Treatment Minutes: 23 Skilled Treatment Time Minutes (timed and untimed codes): 23 Total Session Time (minutes): 23 Session Start Time : 1418 Session Stop Time : 1441 Shortened session time due to pt late arrival JUSTUS Morrison, PT documented in this encounterBlanchard Valley [facility]01-28-2025 NoteBorderline elevated. Re-evaluation in 4-6 weeks is recommended if clinically indicated.Chillicothe HospitalComment on above:Order Comment: Specimen Type: STOOL SPECIMENOrdering Facility: [facility] Address:[address] [place], [place] [address]Result Comment: Interpretation:<50.0 ug/g: Scwjxt29.0 ug/g - 120.0 ug/g: Borderline elevated. Re-evaluation in 4-6 weeks is recommended if clinically indicated.>120.0 ug/g: ElevatedPerformed By: #### [id number], [id number] ####[facility] LABCLIA [id number] [facility] [place]NOTE 2]DESK [address]01-28-2025 NoteChillicothe Hospital01-28-2025 History of Present illness Narrative* Cheryl Fisher, ACID TREATER.PHARMACEUTICAL OFFICER - 03/12/2024 11:35 AM EST CC: Patient presents with: Diarrhea: X 1 month HPI Shakira Franklin is a 63 year old female who presents today for above. Patient reports she has been experiencing diarrhea since December, started after appendectomy. Over the past month the diarrhea has significantly worsened. She was having 2-3 loose stools a day and now 6-7 times a day or more. Diarrhea is described as profuse watery and urgency. Associated with weight loss of 10 lbs and poor appetite Denies: nausea, vomiting, abdominal pain, bloating, black/bloody stools, constipation, recent foreign travel, recent antibiotic usage or new medications Treatments: Imodium without any relief She stopped robaxin and meloxicam that she was taking daily about 6 days ago. She has not had a BM since midnight which feels is an improvement PMH: Non-contributory Last colonoscopy: 2013, Cologuard in 2023 negative Review of Systems Constitutional: Positive for fatigue. Negative for chills, diaphoresis and fever. Respiratory: Negative for shortness of breath. Cardiovascular: Negative for chest pain, palpitations and leg swelling. Genitourinary: Negative for decreased urine volume and difficulty urinating. Skin: Negative for color change, pallor and rash. Neurological: Positive for weakness. Negative for dizziness, syncope, light- headedness and headaches. PAST MEDICAL HISTORY Diagnosis Date Abnormal uterine bleeding (AUB) 2001 Hysterectomy Breast cancer (HCC) 03/06/2017 Lump or mass in breast left breast Malignant neoplasm of right breast in female, estrogen receptor positive (HCC) 03/06/2017 Mitral valve prolapse PVC (premature ventricular contraction) Smoker Supraventricular tachycardia ([facility]) 11/23/2020 PAST SURGICAL HISTORY Procedure Laterality Date AXILLARY LYMPHADENECTOMY 07/31/2012 right axilla BREAST AUGMENTATION W/PROSTHETIC IMPLANT 1999 BREAST BIOPSY CORE 05/30/2012 right breast BREAST BIOPSY CORE 06/06/2012 right breast BREAST RECONSTRUCTION 07/19/2012 right breast single step implant CARPAL TUNNEL Bilateral wrists COLONOSCOPY FLX DX W/COLLJ SPEC WHEN PFRMD 01/01/2013 Normal colonoscopy-5 year followup - family history COLONOSCOPY FLX DX W/COLLJ SPEC WHEN PFRMD 05/08/2013 Colonoscopy EGD TRANSORAL BIOPSY SINGLE/MULTIPLE 01/01/2013 gastritis FNA UNDER GUIDANCE 06/06/2012 right breast by ultrasound INCISE FINGER TENDON SHEATH Right 09/18/2019 Right trigger thumb release LIG/TRNSXJ FLP TUBE ABDL/VAG APPR UNI/BI 1984 MASTECTOMY, SIMPLE, COMPLETE 07/19/2012 right breast with SLND PAST SURGICAL HISTORY OF oral surgery PAST SURGICAL HISTORY OF removal of pingula left eye TONSILLECTOMY HX VAGINAL HYSTERECTOMY UTERUS 250 GM/< 2001 AUB, possible abnormal pap prior to hysterectomy ALLERGIES Arimidex [Anastrozole], Aromasin [Exemestane], Tamoxifen, and Letrozole MEDICATIONS naproxen (NAPROSYN) 500 mg tablet Take 1 tablet by mouth three times a day with meals. Take with food. cyclobenzaprine (FLEXERIL) 10 mg tablet Take 1 tablet by mouth three times a day as needed for muscle spasm. gabapentin (NEURONTIN) 300 mg capsule Take 300 mg by mouth once daily. biotin 1 mg cap Take by mouth. vitamin B complex (VITAMIN B-100 COMPLEX ORAL) Take 1 tablet by mouth once daily. fluocinonide (LIDEX) 0.05 % cream Apply to affected area two times a day as needed (for areas of rash, limit to not more than 2 weeks use at a time.). multivit-min/vit C/herb no.124 (AIRBORNE GUMMY ORAL) Take by mouth. FAMILY HISTORY Problem Relation Age of Onset Anesthesia Father Macular Degen Father other (Other) Father Colon Cancer Father 60 Skin Cancer Father Allergies Mother Heart Mother Hypertension Mother Stroke Mother Hypertension Sister Blindness Sister Lymphoma Sister Allergies Sister other (non-hodgkins lymphoma) Sister other ([place] Syndrome) Sister Heart Attack Brother 57 other (Leukemia) Paternal Aunt Colon Cancer Paternal Uncle dx 70's other (Leukemia) Paternal Uncle Breast Cancer Other maternal aunt, in her 60's Prostate Cancer Other paternal cousin Cancer Other paternal first cousin dx lacrimal sac tumor d. 25 Cancer Other /paternal first cousin dx tumor size of cabbage on chest wall Social History Tobacco Use Smoking status: Former Current packs/day: 0.00 Average packs/day: 0.5 packs/day for 12.0 years (6.0 ttl pk-yrs) Types: Cigarettes Start date: 08/31/2009 Quit date: 08/31/2021 Years since quittin.5 Smokeless tobacco: Never Tobacco comments: relapsed 10/2020 Vaping Use Vaping status: Never Used Substance Use Topics Alcohol use: Not Currently Comment: once a month, 1 drink Drug use: Not Currently Comment: History of remote cocaine use(as young adult) BP 118/68 Pulse 63 Temp 36.2 C (97.2 F) (Temporal) Resp 16 Wt 68.7 kg (151 lb 7.3 oz) SpO2 96% BMI 24.93 kg/m Physical Exam Vitals reviewed. Constitutional: General: She is not in acute distress. Appearance: She is ill-appearing. She is not toxic-appearing. HENT: Mouth/Throat: Mouth: Mucous membranes are moist. Eyes: Conjunctiva/sclera: Conjunctivae normal. Cardiovascular: Rate and Rhythm: Normal rate and regular rhythm. Heart sounds: Normal heart sounds. No murmur heard. Pulmonary: Effort: Pulmonary effort is normal. Breath sounds: Normal breath sounds. No wheezing, rhonchi or rales. Abdominal: General: Bowel sounds are normal. There is no distension. Palpations: Abdomen is soft. There is no hepatomegaly, splenomegaly or mass. Tenderness: There is abdominal tenderness (generalized, mild). There is no guarding or rebound. Skin: General: Skin is warm and dry. Coloration: Skin is not jaundiced or pale. Findings: No rash. Neurological: Mental Status: She is alert. DATA REVIEWED: Most recent labs ASSESSMENT/PLAN: 1. Chronic diarrhea - ICD9: 787.91, ICD10: K52.9 (primary diagnosis) Etiology unclear. Differentials include infection, malabsorption, hyperthyroidism Further evaluation with: - COMPLETE BLOOD COUNT - COMPREHENSIVE METABOLIC PANEL - CLOSTRIDIUM DIFFICILE TOXIN BY PCR - IMMUNOCHEMICAL FECAL OCCULT BLOOD TEST - CALPROTECTIN,FECAL - THYROID STIMULATING HORMONE - CRYPTOSPORIDIUM AND GIARDIA ANTIGENS BY EIA - T4 FREE/FREE THYROXINE - CELIAC SCREEN WITH REFLEX CONSULT TO GENERAL SURGERY, patient may need colonoscopy and is overdue for colon cancer screening Follow-up and further recommendations pending results of above 2. Unintentional weight loss - ICD9: 783.21, ICD10: R63.4 As above 3. Colon cancer screening - ICD9: V76.51, ICD10: Z12.11 As above - CONSULT TO GENERAL SURGERY Prescription instructions reviewed with patient as applicable. Potential red flag symptoms discussed with the patient. Reviewed appropriate action plan to take if red flag symptoms occur. Patient agreeable to treatment plan. Cheryl Fisher APRN.PHARMACEUTICAL OFFICER documented in this encounterBl[facility] of Present illness Narrative* Evelyn Pastor PTA - 03/08/2024 2:11 PM EST Program_ID:[id number] Access Code: [email or web address] URL: [email or web address] Date: 03-08-2024 Prepared By: Evelyn Pastor Program Notes Exercises - Active Straight Leg Raise with Quad Set - 1 x daily - 7 x weekly - 2 sets - 10 reps - Supine Bridge - 1 x daily - 7 x weekly - 2 sets - 10 reps - Sidelying Hip Abduction - 1 x daily - 7 x weekly - 2 sets - 10 reps - Clamshell - 1 x daily - 7 x weekly - 2 sets - 10 reps * Jonas Ambrosio PT - 03/08/2024 2:00 PM EST Episode Visit Count: 2 Therapist That Will Accept/Oversee The Plan Of Care: Jonas Ambrosio PT Start of Care Date: 02/29/24 Onset Date: 08/22/23 Plan of Care Certification Date: 01/11/19 Next Certification Due Date: 03/08/19 Patient Identified by Name and Date of : Yes REHABILITATION AND SPORTS THERAPY PHYSICAL THERAPY TREATMENT NOTE ASSESSMENT: Shakira Franklin tolerated the session with decreased activity tolerance due to not feeling well, decreased endurance, fatigue, and expected muscle soreness. She demonstrated difficulty with tolerance to exercise. The patient will continue to benefit from ongoing skilled physical therapy to progress toward set goals. PLAN FOR NEXT VISIT: L gluteal and hip flexor strengthening SUBJECTIVE: Pt reports that she feels after last session that it set her back, especially when she was on her stomach and therapist was assesing her back. Pt states that she does not feel well today,but does not have a fever. Pain: Pain Pain Level: 5 Pain Location: Knee - Left, Hip - Left OBJECTIVE MEASURES WITH LEVEL OF FUNCTION: Challenged with SLR. TREATMENT: Therapeutic Exercise: 1: Supine SLR 2x5 LLE 2: Sidelying hip abduction 2x5 LLE 3: Sidleying clamshells 2x5 LLE 4: Bridges 2x5 Skilled Intervention: Patient was educated in proper exercise technique and purpose for exercises. Reviewed and educated patient on additions/changes for home exercise program as above (*). Skilled judgment was used in selection of appropriate interventions. Provided written instruction for home exercise program to facilitate proper performance and compliance. Correct performance of therapeutic exercises was facilitated with verbal and visual cuing. Billing Therapeutic Exercise Treatment Minutes: 13 Skilled Treatment Time Minutes (timed and untimed codes): 13 Total Session Time (minutes): 13 Session Start Time : 1400 Session Stop Time : 1413 JUSTUS Morrison PT documented in this encounterCleveland [id number] NoteCh[facility]ic[facility]01-16-2025 NoteChillicothe Hospital01-16-2025 History of Present illness Narrative* Jonas Ambrosio, PT - 02/29/2024 2:08 PM EST Images from the original note were not included. Episode Visit Count: 1 Therapist That Will Accept/Oversee The Plan Of Care: Jonas Ambrosio PT Start of Care Date: 02/29/24 Onset Date: 08/22/23 Plan of Care Certification Date: 01/11/19 Next Certification Due Date: 03/08/19 Patient Identified by Name and Date of : Yes REHABILITATION AND SPORTS THERAPY PHYSICAL THERAPY EVALUATION PLAN OF CARE: Assessment: Shakira Franklin presents with chief complaint of L hip pain that interferes with walking. The patient presents with impairments in independence in exercise, overall function, range of motion, and strength. Patient did not complete the PROMIS (Patient Reported Outcome Measures Information System). Prognosis for therapy is Good due to: current objective clinical presentation . Positive FADDIR on the L. The patient will benefit from skilled therapy services to meet the goals established for this plan of care as noted below. Classification Pain Mechanism Classification: Nociceptive Low Back Pain Classification: Movement Control Goals for Episode of Care: established 02/29/24 Tensas in home exercise program. Patient will decrease pain rating by 2 points to meet minimal clinical important difference for numeric pain rating scale. Perform sleeping without pain. Increased strength of L hip to 5/5 for improved L hip stability with ADL's and decreased pain Normal gait. Patient Goals: Reduce the pain Time Frame for Goals and Treatment : 04/11/24 Planned Interventions, Frequency, and Duration: Current Frequency: 1x/week Duration: 4 weeks Total Number of Visits Planned: 4 Planned Treatment Interventions: Therapeutic exercise (73790), Neuromuscular re- education (68246), Manual therapy (39376), Therapeutic activities (98229), Self- chcf management (62438), Gait Training (69147), Patient/Family/Caregiver Education PLAN FOR NEXT VISIT: L gluteal and hip flexor strengthening Patient demonstrates good understanding of plan of care and treatment. The above goals and plan of care were discussed and agreed upon by patient/family. SUBJECTIVE: Does a lot of walking and can pay for that. Wants to see if PT can help. going to [facility]. They want to get an MRI of her hip. Having reconstructive surgery, but does not have a date. Pain in the buttock and groin. Hard to get up off the floor. Hard to get up off the floor due to both legs being weak. Patient Goals: Reduce the pain Functional Limitations: walking Prior Level of Function: Independent without limitations Intake Information: Prescription present Previous Treatment: Steroids , Muscle relaxer Falls Interview: No positive findings with falls interview Pain: Pain Pain Location: Hip - Left PROMIS Scales 10/08/2023 09/27/2023 09/11/2023 Higher is Better Phys Func - T Score Incomplete 39 (moderate dysfunction) Phys Func - Percentile 14 Self-Eff Symptom - T Score Incomplete 09/11/2023 Lower is Better Pain Interference - T Score 64 (moderate) Pain Interference - Percentile 8 T-scores: mean of general population = 50. 5 points is clinically meaningfully difference Percentiles provide an indication of how the patient's score ranks in relation to the general population. Higher percentile rankings indicate better function/quality of life. 50th percentile is the average of the general population and indicates half of respondents had a worse score. OBJECTIVE MEASURES WITH LEVEL OF FUNCTION: Lumbar Spine AROM Lumbar Flexion: Normal Lumbar Extension: Normal Lumbar R Side-Bend: Normal, Increased pain (R hip) Lumbar R Rotation: Normal Lumbar L Rotation: Normal LE PROM L Hip Flexion: 110 Degrees (end range pain) L Hip Internal Rotation: (end range pain) L Hip External Rotation: 50 Degrees (end range pain) LE Strength L Hip Flexion (L2): 3+/5 L Hip ABduction: 3-/5 L Hip External Rotation: 3/5 Gait Gait Observation: Slight antalgic gait LLE Catching in the L hip when lowing the leg in Supine SLR position around 30 degrees of flexion Full L knee flexion/ext without pain Education: Education Learning Preferences: Demonstration, Explanation, Performance, Printed Materials Barriers: None Learning/educational needs: Home exercise program, Plan of Care, Changes in Plan of Care Education Provided: Yes, see treatment interventions for education provided Education Provided To: Patient Education Mode/Type: Demonstration, Explanation/Discussion, Literature/Printed Materials, Performance Response to Education/Teach Back: States/Identifies, Return Demonstration TREATMENT: PT Treatment Interventions: Therapeutic Exercise Evaluation Therapeutic Exercise: 1: Discussed exam findings, purpose of the HEP and the HEP handout was provided to the pt. HEP discussed in detail with how to safely and properly perform each therapeutic exercise. 2: Sidelying hip abd iso on wall x 5 Skilled Intervention: Patient was educated in proper exercise technique and purpose for exercises. Provided written instruction for home exercise program to facilitate proper performance and compliance. Correct performance of therapeutic exercises was facilitated with verbal and visual cuing. Billing * Evaluation Low Complexity: 1 Unit Therapeutic Exercise Treatment Minutes: 10 Skilled Treatment Time Minutes (timed and untimed codes): 52 Total Session Time (minutes): 52 Session Start Time : 1408 Session Stop Time : 1500 Jonas Ambrosio PT documented in this encounterBlanchard [facility]12-[facility] Telephone encounter Note * Telephone Encounter - Mago Lozada - 02/05/2024 2:34 PM EST Patient came in office to scheduled [facility]12-23-2024 Miscellaneous Notes* Telephone Encounter - Mago Lozada - 02/05/2024 2:34 PM EST Patient came in office to scheduled * Telephone Encounter - Denia Lares - 02/02/2024 3:40 PM EST Spoke with the patient who was unable to schedule at the time of the call (driving). When she calls, please schedule an OV w/ Cassandra about a week after her Mammogram in June and note on study in the appointment note. documented in this encounterBlanchard Valley [facility] System [facility]12-20-2024 Telephone encounter Note * Telephone Encounter - Denia Lares - 02/02/2024 3:40 PM EST Spoke with the patient who was unable to schedule at the time of the call (driving). When she calls, please schedule an OV w/ Cassandra about a week after her Mammogram in June and note on study in the appointment note. [facility]11-19-2024 [facility] Medical Records Department [address] [place] [address] History Physical Exam 01/02/24 2150 MR#: [id number] Acct: [id number] Name: SHAKIRA FRANKLIN Rep #: [id number] : 1960 63 From: Ra Ballard MD PCP: Dr. Christiano Wooten MD Status:[facility] [place] [facility] [place] HPI - General General Date of Admission: 01/02/24 Date of Service: 01/02/24 Chief Complaint: Progressive acute onset lower abdominal pain HPI Narrative SHAKIRA FRANKLIN, is a 63 F who presents to [facility] with her daughter after acute onset right lower quadrant abdominal pain that woke her out of sleep approximately 3 AM this morning. Patient describes the pain as progressive and associated with nausea and vomiting. She also reports that she has had some normal bowel movements today. Given the nausea and vomiting as well as a general unwell feeling she has remained free of any p.o. intake. She denies any previous experience of similar pain. She does note that she has been dealing with some ongoing left knee and left groin pain but both the character and the laterality for her acute onset pain are distinct from these other issues. Patient's ER workup is notable for CBC with leukocytosis of 15.[address] imaging shows evidence of acute appendicitis and possible periappendiceal abscess. Patient has a past medical history of COPD with remote history of tobacco use but no requirement for home oxygen. Additionally there is a history of breast cancer requiring mastectomy and reconstruction. She had past surgical history of a transvaginal hysterectomy performed remotely for heavy menstrual bleeding. 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 [facility] Medical History GERD (gastroesophageal reflux disease) COPD (chronic obstructive pulmonary disease) Breast CA Home Medications ???Medication ???Instructions ???Recorded ???Last Taken ???Type naproxen 500 mg tablet 500 mg PO BID PRN PRN pain 01/02/24 Unknown History pregabalin 75 mg capsule 75 mg PO BID 01/02/24 Unknown History Allergy/AdvReac Type Severity Reaction Status Date / Time anastrozole (From Arimidex) Allergy Unknown Verified 01/02/24 17:46 exemestane (From Aromasin) Allergy Unknown Verified 01/02/24 17:46 letrozole Allergy Unknown Verified 01/02/24 17:46 tamoxifen Allergy Unknown Verified 01/02/24 17:46 Family History Sister Colon cancer Anemia Father Anemia Myocardial infarction Father Bowel disease Heart disease Surgical History H/O total hysterectomy Hx of mastectomy Social History Smoking Status: Former smoker quit date: 05/14/21 substance use type: does not use Vital Signs Vital Signs Vital Signs: 01/02/24 17:47 01/02/24 18:51 01/02/24 19:15 Temperature 99.3 F H 99.3 F H Temperature Source Oral Oral Pulse Rate 65 Respiratory Rate 20 H Blood Pressure 125/71 H Blood Pressure Mean 89 Pulse Ox 96 88 96 Oxygen Delivery Method Room Air Room Air Nasal Cannula Oxygen Flow Rate (L/min) 2 01/02/24 21:01 Temperature 98.5 F Temperature Source Oral Pulse Rate 68 Respiratory Rate 18 Blood Pressure Blood Pressure Mean Pulse Ox 92 Oxygen Delivery Method Room Air Oxygen Flow Rate (L/min) Weight Weight: 154 lb 5.177 oz Body Mass Index (BMI) 24.9 Physical Exam Const alert and oriented x3 Constitutional Narrative: Mild distress from both abdominal pain as well as a headache General Appearance: cooperative Resp normal respiratory effort GI GI Narrative: Nondistended, no visible scars, soft, tender to palpation over McBurney's point and slightly inferiorly. Negative negative Rovsing and obturator signs. Mildly positive psoas sign. Results Lab / Micro Data 01/02/24 18:00 01/02/24 18:00 Labs: Laboratory Results - last 24 hr 01/02/24 18:00: WBC 15.9 H, RBC 4.15 L, Hgb 11.5 L, Hct 36.3 L, MCV 87.5, MCH 27.7, MCHC 31.7 L, RDW Std Deviation 43.3, RDW Coeff of Rylee 13.4, Plt Count 243, MPV 9.6, Immature Gran % (Auto) 0.400, N eut % (Auto) 90.5 H, Lymph % (Auto) 4.5 L, Logan % (Auto) 4.5, Eos % (Auto) 0.0, Baso % (Auto) 0.1, A bsolute Neuts (auto) 14.3 H, Absolute Lymphs (auto) 0.72 L, Nucleated RBC % 0, Sodium 140, Potassium 3.7, Chloride 108 H, Carbon Dioxide 25.0, Anion Gap 7, BUN 16, Creatinine 0.80, Estim Creat Clear Calc 65.63, Est GFR (MDRD) Af Amer 93, Est GFR (MDRD) Non-Af 77, BUN/Creatinine Ratio 20.1 H, G lucose 118 H, Calcium 9.5, Total Bilirubin 0.70, AST 29, ALT 28, Alkaline Phosphatase 65, Total Protein 7.1, Albumin 4.0, Globulin (more content not included)...[facility]11-19-2024 NoteChillicothe Hospital09-12-2024 NoteHNO ID: [id number] Author: LAVONNE FRAIRE APRN.VALERIA Service: ? Author Type: Nurse Practitioner Type: Progress Notes Filed: 10/26/2023 09:04 Note Text: E-Consult Response In response to your [facility]Consult request to [facility] for Shakira Franklin regarding: Left leg pain. History of present illness provided through requesting provider documentation and current treatment plan was reviewed. Based on the patient history provided, my impression is as follows: Patient should be seen for in person evaluation. Due to lack of notable findings on lumbar MRI, patient will need to have physical exam done to determine source of pain. A non-urgent, next available appointment should be scheduled Lavonne Fraire APRN.PHARMACEUTICAL OFFICER October 26, 2023 I spent a total of 3 minutes on the date of the service which included completing clinical documentation and independently interpreting results (not separately reported).[facility] [id number] History of Present illness Narrative* Lavonne Fraire APRN.VALERIA - 10/26/2023 9:02 AM EDT E-Consult Response In response to your eConsult request to [facility] for Shakira Franklin regarding: Left leg pain. History of present illness provided through requesting provider documentation and current treatmentplan was reviewed. Based on the patient history provided, my impression is as follows: Patient should be seen for in person evaluation. Due to lack of notable findings on lumbar MRI, patient will need to have physical exam done to determine source of pain. A non-urgent, next available appointment should be scheduled Lavonne Fraire APRN.VALERIA October 26, 2023 I spent a total of 3 minutes on the date of the service which included completing clinical documentation and independently interpreting results (not separately reported). documented in this encounterBlanchard Valley Health System [facility]09-[facility]-20[facility] History of Present illness Narrative* Cheryl Fisher APRN.VALERIA - 10/25/2023 11:40 AM EDT CC: Patient presents with: Follow Up HPI Shakira Franklin is a 63 year old female who presents today for above. Patient has been experiencing left low back, hip and leg pain that started suddenly about 2.5 months ago. Pain has progressively worsened since then and developed new onset numbness/tingling a few weeks ago. She is unable to find a comfortable position, interfering with work, sleep and ADL's. Work-up thus far has included labs, urine testing, x-ray lumbar spine and most recently MRI of the lumbar spine. Labs and x-ray were unremarkable. MRI of the lumbar spine did not show any significant findings that would indicate the cause/severity of her symptoms. She has been treated with prednisone taper x 2, Flexeril, NSAID's, Gabapentin (unable to tolerate higher doses). She also had two PT sessions but made pain worse so therapist discontinued. Of note urinalysis results were consistent with UTI, no culture done. She was treated with Bactrim and repeat urine testing ordered. Today patient reports noimprovement in pain. Denies any new or worsening symptoms. She continues to have numbness/tingling in the left lower leg. Review of Systems Constitutional: Negative for chills, diaphoresis, fever and unexpected weight change. Eyes: Negative for pain, redness and visual disturbance. Respiratory: Negative for cough, shortness of breath and wheezing. Cardiovascular: Negative for chest pain, palpitations and leg swelling. Gastrointestinal: Negative for abdominal distention, abdominal pain, blood in stool, constipation, diarrhea, nausea, rectal pain and vomiting. Genitourinary: Negative for decreased urine volume, difficulty urinating, dysuria, flank pain, frequency, hematuria and pelvic pain. Neurological: Negative for dizziness, tremors, syncope, speech difficulty, weakness, light-headedness and headaches. PAST MEDICAL HISTORY 2001: Abnormal uterine bleeding (AUB) Comment: Hysterectomy 03/06/2017: Breast cancer (HCC) No date: Lump or mass in breast Comment: left breast 03/06/2017: Malignant neoplasm of right breast in female, estrogen receptor positive (HCC) No date: Mitral valve prolapse No date: PVC (premature ventricular contraction) No date: Smoker 11/23/2020: Supraventricular tachycardia (HCC) PAST SURGICAL HISTORY 07/31/2012: AXILLARY LYMPHADENECTOMY Comment: right axilla 1998: BREAST AUGMENTATION W/PROSTHETIC IMPLANT 05/30/2012: BREAST BIOPSY CORE Comment: right breast 06/06/2012: BREAST BIOPSY CORE Comment: right breast 07/19/2012: BREAST RECONSTRUCTION Comment: right breast single step implant No date: CARPAL TUNNEL Comment: Bilateral wrists 01/01/2013: COLONOSCOPY FLX DX W/COLLJ SPEC WHEN PFRMD Comment: Normal colonoscopy-5 year followup - family history 05/08/2013: COLONOSCOPY FLX DX W/COLLJ SPEC WHEN PFRMD Comment: Colonoscopy 01/01/2013: EGD TRANSORAL BIOPSY SINGLE/MULTIPLE Comment: gastritis 06/06/2012: FNA UNDER GUIDANCE Comment: right breast by ultrasound 09/18/2019: INCISE FINGER TENDON SHEATH; Right Comment: Right trigger thumb release 1984: LIG/TRNSXJ FLP TUBE ABDL/VAG APPR UNI/BI 07/19/2012: MASTECTOMY, SIMPLE, COMPLETE Comment: right breast with SLND No date: PAST SURGICAL HISTORY OF Comment: oral surgery No date: PAST SURGICAL HISTORY OF Comment: removal of pingula left eye No date: TONSILLECTOMY HX 2001: VAGINAL HYSTERECTOMY UTERUS 250 GM/< Comment: AUB, possible abnormal pap prior to hysterectomy ALLERGIES Arimidex [Anastrozole], Aromasin [Exemestane], Tamoxifen, and Letrozole MEDICATIONS gabapentin (NEURONTIN) 300 mg capsule Take 300 mg by mouth once daily. biotin 1 mg cap Take by mouth. vitamin B complex (VITAMIN B-100 COMPLEX ORAL) Take 1 tablet by mouth once daily. fluocinonide (LIDEX) 0.05 % cream Apply to affected area two times a day as needed (for areas of rash, limit to not more than 2 weeks use at a time.). multivit-min/vit C/herb no.124 (AIRBORNE GUMMY ORAL) Take by mouth. FAMILY HISTORY Problem Relation Age of Onset Anesthesia Father Macular Degen Father other (Other) Father Colon Cancer Father 60 Skin Cancer Father Allergies Mother Heart Mother Hypertension Mother Stroke Mother Hypertension Sister Blindness Sister Lymphoma Sister Allergies Sister other (non-hodgkins lymphoma) Sister other ([place] Syndrome) Sister Heart Attack Brother 57 other (Leukemia) Paternal Aunt Colon Cancer Paternal Uncle dx 70's other (Leukemia) Paternal Uncle Breast Cancer Other maternal aunt, in her 60's Prostate Cancer Other paternal cousin Cancer Other paternal first cousin dx lacrimal sac tumor d. 25 Cancer Other /paternal first cousin dx tumor size of cabbage on chest wall Social History Tobacco Use Smoking status: Former Current packs/day: 0.00 Average packs/day: 0.5 packs/day for 12.0 years (6.0 ttl pk-yrs) Types: Cigarettes Start date: 08/31/2009 Quit date: 08/31/2021 Years since quittin.1 Smokeless tobacco: Never Tobacco comments: relapsed 10/2020 Vaping Use Vaping status: Never Used Substance Use Topics Alcohol use: Not Currently Comment: once a month, 1 drink Drug use: Not Currently Comment: History of remote cocaine use(as young adult) BP 124/86 Pulse 61 Resp 18 Wt 71.6 kg (157 lb 13.6 oz) SpO2 94% BMI 25.98 kg/m Physical Exam Vitals reviewed. Constitutional: Appearance: Normal appearance. HENT: Mouth/Throat: Mouth: Mucous membranes are moist. Pharynx: Oropharynx is clear. Eyes: Extraocular Movements: Extraocular movements intact. Conjunctiva/sclera: Conjunctivae normal. Pupils: Pupils are equal, round, and reactive to light. Cardiovascular: Rate and Rhythm: Normal rate and regular rhythm. Heart sounds: Normal heart sounds. No murmur heard. Pulmonary: Effort: Pulmonary effort is normal. Breath sounds: Normal breath sounds. No wheezing, rhonchi or rales. Abdominal: General: There is no distension. Palpations: There is no mass. Tenderness: There is no abdominal tenderness. There is no right CVA tenderness, left CVA tenderness, guarding or rebound. Skin: General: Skin is warm and dry. Neurological: General: No focal deficit present. Mental Status: She is alert and oriented to person, place, and time. Cranial Nerves: Cranial nerves 2-12 are intact. Sensory: Sensation is intact. Motor: No weakness, tremor or atrophy. Coordination: Romberg sign negative. Coordination normal. Ptolxg-Hlvn-Hmkbwg Test normal. Rapid alternating movements normal. Gait: Gait abnormal (antalgic on the left). Tandem walk normal. Deep Tendon Reflexes: Reflexes are normal and symmetric. Comments: No pain with walking on heels or toes DATA REVIEWED: Most recent labs and imaging results. ASSESSMENT/PLAN: 1. Left low back pain, unspecified chronicity, unspecified whether sciatica present - ICD9: 724.2, ICD10: M54.50 (primary diagnosis) Etiology remains unclear. No concerning findings on neuro exam today or most recent testing. Recommend the following: - CONSULT TO PAIN MGT, patient already established with the [facility] for right upper extremity pain and will schedule with them - EMG(NEURO/NI) - start Naproxen, take three times a day with food - start Flexeril as needed Repeat urine testing: - URINALYSIS, WITH MICROSCOPIC - URINE CULTURE 2. Left leg pain - ICD9: 729.5, ICD10: M79.605 As above - CONSULT TO PAIN MGT - EMG(NEURO/NI) 3. Numbness and tingling of left lower extremity - ICD9: 782.0, ICD10: R20.0, R20.2 As above - CONSULT TO PAIN MGT - EMG(NEURO/NI) Prescription instructions reviewed with patient as applicable. Potential red flag symptoms discussed with the patient. Reviewed appropriate action plan to take if red flag symptoms occur. Patient agreeable to treatment plan. Cheryl Fisher APRN.PHARMACEUTICAL OFFICER documented in this encounterBlanchard Valley Health System [facility]09-11-2024 NoteChillicothe [facility] Telephone encounter Note* Telephone Encounter - Yasmany Dunbar MA - 10/24/2023 12:23 PM EDT Scheduled. [facility]09[facility] Miscellaneous Notes* Telephone Encounter - Yasmany Dunbar MA - 10/24/2023 12:23 PM EDT Scheduled. * Telephone Encounter - Cheryl Fisher APRN.CNP - 10/24/2023 12:19 PM EDT Please put patient on my schedule for 10/24 at 11:40 Cheryl Fisher APRN.CNP documented in this encounterBl[facility] Tele[facility] encounter Note * Telephone Encounter - Cheryl Fisher APRN.CNP - 10/24/2023 12:19 PM EDT Please put patient on my schedule for 10/24 at 11:40 Cheryl Fisher APRN.CNP [facility]09-05-2024 History of Present illness Narrative* Anu Ballard RT(R) - 10/19/2023 3:45 PM EDT Radiology Service Progress Note PATIENT NAME: Shakira Franklin DATE OF SERVICE: October 19, 2023 TIME: 3:31 PM PATIENT IDENTITY VERIFICATION COMPLETED USING TWO (2) IDENTIFIERS: Name and Date of confirmedby patient verbally. FALL SCREENING: Has the patient had 2 falls in the last year or 1 fall with injury or currently using an Ambulatory Assistive Device (Walker, Cane, Wheelchair, Crutches, etc.)? No PATIENT GENDER DATA: Female. status: : No status: NO. PATIENT RELEVANT IMPLANT DATA REVIEWED: Yes PATIENT PRESENTS WITH AN IMPLANTABLE OR ATTACHED WARE CLEANER: No RADIOLOGY DEPARTMENT: MR; Exam(s) Completed: Spine: Lumbar spine PERIPHERAL IV DATA: Not applicable SIGNED BY: Anu Ballard RDMS, RVT- Sheila ([employer] [facility]) October 19, 2023 3:31 PM documented in this encounterBlanch[facility] NoteHNO ID: [id number] Author: ANU BALLARD RT(R) Service: ? Author Type: Technologist Type: Progress Notes Filed: 10/19/2023 15:31 Note Text: Radiology Service Progress Note PATIENT NAME: Shakira Franklin DATE OF SERVICE: October 19, 2023 TIME: 3:31 PM PATIENT IDENTITY VERIFICATION COMPLETED USING TWO (2) IDENTIFIERS: Name and Date of confirmed by patient verbally. FALL SCREENING: Has the patient had 2 falls in the last year or 1 fall with injury or currently using an Ambulatory Assistive Device (Walker, Cane, Wheelchair, Crutches, etc.)? No PATIENT GENDER DATA: Female. status: : No status: NO. PATIENT RELEVANT IMPLANT DATA REVIEWED: Yes PATIENT PRESENTS WITH AN IMPLANTABLE OR ATTACHED WARE CLEANER: No RADIOLOGY DEPARTMENT: MR; Exam(s) Completed: Spine: Lumbar spine PERIPHERAL IV DATA: Not applicable SIGNED BY: Anu Ballard RDMS, RVT- Sheila ([employer]) October 19, 2023 3:31 [facility]08-26-2024 Note* Addendum Note - Jonas Ambrosio PT - 10/09/2023 3:27 PM EDTAddended by: JONAS AMBROSIO on: 10/09/2023 03:27 PM Modules accepted: Orders [facility]08-26-2024 Miscellaneous Notes* Addendum Note - Jonas Ambrosio, PT - 10/09/2023 3:27 PM EDTAddended by: JONAS AMBROSIO on: 10/09/2023 03:27 PM Modules accepted: Orders documented in this encounterBlanchard [facility]08[facility]26[facility]24 [facility] History of Present illness Narrative* Jonas Ambrosio, PT - 10/09/2023 2:45 PM EDT Images from the original note were not included. Episode Visit Count: 4 Therapist That Will Accept/Oversee The Plan Of Care: Jonas Ambrosio PT Start of Care Date: 09/12/23 Onset Date: 08/22/23 Plan of Care Certification Date: 01/11/19 Next Certification Due Date: 03/08/19 [facility]AB[facility]ATION [facility] SPORTS THERAPY PHYSICAL THERAPY PROGRESS REPORT PLAN OF CARE UPDATE: Assessment: Shakira Franklin demonstrates difficulty with continued pain with sitting and rising from a chair. She has has not progressed towards goals. Patient continues to present with impairments in independence in exercise, overall function, and range of motion that interfere with sitting . Current prognosisis . Pt's PT will be placed on hold until further evaluation by her referring provider. No specialty comments available. Patient Goals: Reduce the pain Planned Interventions, Frequency, and Duration: , Patient to be seen for PLAN FOR NEXT VISIT: PT on hold for now SUBJECTIVE: Not feeling any better. Still feeling the same. The pain is still in the leg and is a little better when standing vs sitting. Pt states that the lumbar traction last time may have provided some intrmittent relief to her pain so she would like to try this again. Pt mentions today that during a previous MRI with another medical hospital, they found 2 spots on her spine and told her to monitor this. So she is not sure if that is something that could be the cause for her symptoms. Patient Goals: Reduce the pain Functional Limitations: sitting Prior Level of Function: Independent without limitations Intake Information: Prescription present Previous Treatment: Steroids , Muscle relaxer Pain: Pain Pain Level: (Not rated) Pain Location: Leg - Right PROMIS Scales 10/08/2023 09/27/2023 09/11/2023 Higher is Better Phys Func - Score Incomplete 39 (moderate dysfunction) Phys Func - Percentile 14 Self-Eff Symptom - Score Incomplete T-scores: mean of general population = 50. 5 points is clinically meaningfully difference Percentiles provide an indication of how the patient's score ranks in relation to the general population. Higher percentile rankings indicate better function/quality of life. 50th percentile is the average of the general population and indicates half of respondents had a worse score. OBJECTIVE MEASURES WITH LEVEL OF FUNCTION: Lumbar Spine AROM Lumbar Flexion: Normal, Peripheralizing Lumbar Extension: Normal Lumbar R Side-Bend: Normal Lumbar L Side-Bend: Increased pain, Normal Lumbar R Rotation: Increased pain, Normal Lumbar L Rotation: Normal TREATMENT: Manual Therapy: 1: All objective measures taken this session 2: Supine lumbar traction with stool and strap x 15 min, oscillating force Skilled Intervention: Manual skills to improve joint mobility, ROM, and decrease pain. Utilized anatomy knowledge of the therapist, and assessment of patient's response to intervention. Billing Manual TherapyTreatment Minutes: 30 Skilled Treatment Time Minutes (timed and untimed codes): 30 Total Session Time (minutes): 30 Session Start Time : 1245 Session Stop Time : 1315 Jonas Ambrosio PT documented in this encounterBlanchard [facility]08[facility]26[facility] Telephone encounter Note * Telephone Encounter - Yasmany Dunbar MA - 10/09/2023 2:27 PM EDT Patient notified, verbalized understanding. [facility]08-26-2024 Miscellaneous Notes* Telephone Encounter - Yasmany Dunbar MA - 10/09/2023 2:27 PM EDT Patient notified, verbalized understanding. * Telephone Encounter - Cheryl Fisher APRN.PHARMACEUTICAL OFFICER - 10/09/2023 2:18 PM EDT Yes, start antibiotic and then have urine rechecked once she has completed it Cheryl Fisher APRN.PHARMACEUTICAL OFFICER * Telephone Encounter - Yasmany Dunbar MA - 10/09/2023 1:38 PM EDT Patient notified, verbalized understanding. Asking if you would like her to start the antibiotic. She was unaware this was sent. Patient states that her only sx is an odor. * Telephone Encounter - Cheryl Fisher APRN.CNP - 10/09/2023 1:30 PM EDT I ordered a repeat urinalysis and urine culture, sent a My Chart message to patient on 10/05 but shehas not read it yet. Please call patient and notify her Cheryl Fisher APRN.PHARMACEUTICAL OFFICER * Telephone Encounter - Millicent Mcallister RN - 10/09/2023 1:25 PM EDT Ray @ [facility] [employer] [facility] returning call. He states the Urine culture only reflexes if the WBC >10 in the UA. He says may order urine culture specifically if needed. Millicent Mcallister RN * Telephone Encounter - Yasmany Dunbar MA - 10/09/2023 1:11 PM EDT Spoke with lab client services @ [phone]. They are checking with specimen investigation and will contact the office back. * Telephone Encounter - Yasmany Dunbar MA - 10/09/2023 1:11 PM EDT ----- Message from Cheryl Fisher APRN.VALERIA sent at 10/06/2023 7:35 AM EDT ----- Please call lab and find out why the reflex culture was not done since the urinalysis was abnormal Cheryl Fisher APRN.CNP documented in this encounterBlanchard Valley [facility]08[facility] Telephone encounter Note * Telephone Encounter - Cheryl Fisher APRN.CNP - 10/09/2023 2:18 PM EDT Yes, start antibiotic and then have urine rechecked once she has completed it Cheryl Fisher APRN.VALERIA [facility]08-26-2024 Telephone encounter Note* Telephone Encounter - Yasmany Dunbar MA - 10/09/2023 1:38 PM EDT Patient notified, verbalized understanding. Asking if you would like her to start the antibiotic. She was unaware this was sent. Patient states that her only sx is an odor. [facility]08-26-2024 Telephone encounter Note* Telephone Encounter - Cheryl Fisher APRN.CNP - 10/09/2023 1:30 PM EDT I ordered a repeat urinalysis and urine culture, sent a My Chart message to patient on 10/05 but shehas not read it yet. Please call patient and notify her Cheryl Fisher APRN.PHARMACEUTICAL OFFICER [facility]08-26-2024 Telephone encounter Note* Telephone Encounter - Millicent Mcallister RN - 10/09/2023 1:25 PM EDT Naseem @ [facility] returning call. He states the Urine culture only reflexes if the WBC >10 in the UA. He says may order urine culture specifically if needed. Millicent Mcallister, RN [facility]08-26-2024 Telephone encounter Note* Telephone Encounter - Yasmany Dunbar MA - 10/09/2023 1:11 PM EDT Spoke with lab client services @ [phone]. They are checking with specimen investigation and will contact the office back. [facility]08-26-2024 Telephone encounter Note* Telephone Encounter - Yasmany Dunbar MA - 10/09/2023 1:11 PM EDT ----- Message from Cheryl Fisher APRN.PHARMACEUTICAL OFFICER sent at 10/06/2023 7:35 AM EDT ----- Please call lab and find out why the reflex culture was not done since the urinalysis was abnormal Cheryl Fisher APRN.PHARMACEUTICAL OFFICER [facility]08-21-2024 Instructions* Patient Instructions* Cheryl Fisher APRN.CNP - 10/04/2023 3:41 PM EDT YOU SHOULD SEEK MEDICAL ATTENTION IMMEDIATELY, EITHER HERE OR AT THE NEAREST EMERGENCY DEPARTMENT, IF ANY OF THE FOLLOWING OCCURS: You think the pain is coming from somewhere other than your back. This can include chest pain. Thisis sometimes from angina (heart pains) or other dangerous causes. You have shortness of breath, sweating, chest pain (or pressure, heaviness, indigestion, etc). You have abdominal (belly) pain that goes through to your back. Your arms and legs tingle or get numb (lose feeling). Your arms or legs are weak. You lose control of your bladder or bowels. If this were to happen, it may cause you to wet or soilyourself. You have problems urinating (peeing). You have fever (temperature higher than 100.4 F / 38 C). Your pain gets worse. documented in this encounterBlanchard Valley Health System [facility]08[facility] History of Present illness Narrative* Cheryl Fisher APRN.CNP - 10/04/2023 3:20 PM EDT CC: Patient presents with: Follow Up: Left leg and hip pain HPI Shakira Franklin is a 62 year old female who presents today for above. She developed sudden onset of pain in the left buttock radiating down to her left knee about 10 weeks ago. She was seen in [facility] x 2 and primary care on 09/11 for this. X-ray of the back and hip were unremarkable. Treatmentsincluded Flexeril, prednisone taper x 2 and Percocet. She was referred to PT and has completed three sessions. Today patient reports no improvement in pain. New symptom of numbness/tingling in the left lower leg along with weakness which is affecting her gait. Pain is worse first thing in the morning and withinactivity, wakes up her frequently at night and having trouble falling asleep. Improves somewhat with standing and walking. Pain seems to be getting worse on the left side of her low back. Still having pain in the left buttock, groin and entire leg. Denies fever, chills, bowel/bladder incontinence, saddle anesthesia. Of note she is seeing orthopedics for issues with her RUE and was recently prescribed Gabapentin 100 mg about three weeks ago. She was supposed to gradually increase it to three times a day but is only taking at bedtime due to side effects of drowsiness. There has been no improvement in back or leg pain since starting Gabapentin. She also continues to have diarrhea that started shortly after she began taking prednisone. Loose stools occurring twice a day on average. Described as watery. She has no history of bowel issues. Shehas not had any normal BM's since diarrhea began. Denies fecal urgency, incontinence, black/bloody stools, constipation. No recent foreign travel or antibiotics. Review of Systems Constitutional: Negative for activity change, appetite change, diaphoresis and unexpected weight change. Respiratory: Negative for cough, shortness of breath and wheezing. Cardiovascular: Negative for chest pain, palpitations and leg swelling. Gastrointestinal: Negative for abdominal distention, anal bleeding and rectal pain. Genitourinary: Negative for decreased urine volume, difficulty urinating, dysuria, frequency, urgency, vaginal bleeding and vaginal discharge. Musculoskeletal: Negative for arthralgias and joint swelling. Skin: Negative for rash. Allergic/Immunologic: Negative for immunocompromised state. Neurological: Negative for dizziness, syncope and light-headedness. Hematological: Negative for adenopathy. Does not bruise/bleed easily. PAST MEDICAL HISTORY 2001: Abnormal uterine bleeding (AUB) Comment: Hysterectomy 03/06/2017: Breast cancer (HCC) No date: Lump or mass in breast Comment: left breast 03/06/2017: Malignant neoplasm of right breast in female, estrogen receptor positive (HCC) No date: Mitral valve prolapse No date: PVC (premature ventricular contraction) No date: Smoker 11/23/2020: Supraventricular tachycardia (HCC) PAST SURGICAL HISTORY 07/31/2012: AXILLARY LYMPHADENECTOMY Comment: right axilla 1998: BREAST AUGMENTATION W/PROSTHETIC IMPLANT 05/30/2012: BREAST BIOPSY CORE Comment: right breast 06/06/2012: BREAST BIOPSY CORE Comment: right breast 07/19/2012: BREAST RECONSTRUCTION Comment: right breast single step implant No date: CARPAL TUNNEL Comment: Bilateral wrists 01/01/2013: COLONOSCOPY FLX DX W/COLLJ SPEC WHEN PFRMD Comment: Normal colonoscopy-5 year followup - family history 05/08/2013: COLONOSCOPY FLX DX W/COLLJ SPEC WHEN PFRMD Comment: Colonoscopy 01/01/2013: EGD TRANSORAL BIOPSY SINGLE/MULTIPLE Comment: gastritis 06/06/2012: FNA UNDER GUIDANCE Comment: right breast by ultrasound 09/18/2019: INCISE FINGER TENDON SHEATH; Right Comment: Right trigger thumb release 1984: LIG/TRNSXJ FLP TUBE ABDL/VAG APPR UNI/BI 07/19/2012: MASTECTOMY, SIMPLE, COMPLETE Comment: right breast with SLND No date: PAST SURGICAL HISTORY OF Comment: oral surgery No date: PAST SURGICAL HISTORY OF Comment: removal of pingula left eye No date: TONSILLECTOMY HX 2001: VAGINAL HYSTERECTOMY UTERUS 250 GM/< Comment: AUB, possible abnormal pap prior to hysterectomy ALLERGIES Arimidex [Anastrozole], Aromasin [Exemestane], Tamoxifen, and Letrozole MEDICATIONS cyclobenzaprine (FLEXERIL) 10 mg tablet Take 1 tablet by mouth three times a day as needed for muscle spasm. predniSONE (DELTASONE) 10 mg tablet Take 4 tabs daily for 3 days, then 2 tabs daily for 3 days, then 1 tab daily for 3 days with food. biotin 1 mg cap Take by mouth. vitamin B complex (VITAMIN B-100 COMPLEX ORAL) Take 1 tablet by mouth once daily. fluocinonide (LIDEX) 0.05 % cream Apply to affected area two times a day as needed (for areas of rash, limit to not more than 2 weeks use at a time.). multivit-min/vit C/herb no.124 (AIRBORNE GUMMY ORAL) Take by mouth. FAMILY HISTORY Problem Relation Age of Onset Anesthesia Father Macular Degen Father other (Other) Father Colon Cancer Father 60 Skin Cancer Father Allergies Mother Heart Mother Hypertension Mother Stroke Mother Hypertension Sister Blindness Sister Lymphoma Sister Allergies Sister other (non-hodgkins lymphoma) Sister other (Jim-Rochester Syndrome) Sister Heart Attack Brother 57 other (Leukemia) Paternal Aunt Colon Cancer Paternal Uncle dx 70's other (Leukemia) Paternal Uncle Breast Cancer Other maternal aunt, in her 60's Prostate Cancer Other paternal cousin Cancer Other paternal first cousin dx lacrimal sac tumor d. 25 Cancer Other /paternal first cousin dx tumor size of cabbage on chest wall Social History Tobacco Use Smoking status: Former Current packs/day: 0.00 Average packs/day: 0.5 packs/day for 12.0 years (6.0 ttl pk-yrs) Types: Cigarettes Start date: 08/31/2009 Quit date: 08/31/2021 Years since quittin.0 Smokeless tobacco: Never Tobacco comments: relapsed 10/2020 Vaping Use Vaping status: Never Used Substance Use Topics Alcohol use: Not Currently Comment: once a month, 1 drink Drug use: Not Currently Comment: History of remote cocaine use(as young adult) BP 122/84 Pulse 72 Resp 18 Wt 70.9 kg (156 lb 4.9 oz) BMI 25.73 kg/m Physical Exam Vitals reviewed. Constitutional: General: She is not in acute distress. Appearance: She is not ill-appearing or toxic-appearing. Cardiovascular: Rate and Rhythm: Normal rate and regular rhythm. Pulses: Normal pulses. Heart sounds: Normal heart sounds. No murmur heard. Pulmonary: Effort: Pulmonary effort is normal. Breath sounds: Normal breath sounds. No wheezing, rhonchi or rales. Abdominal: General: Bowel sounds are normal. There is no distension. Palpations: Abdomen is soft. There is no hepatomegaly, splenomegaly or mass. Tenderness: There is abdominal tenderness (lower abdomen, mild). There is no right CVA tenderness, left CVA tenderness, guarding or rebound. Negative signs include Bennett's sign. Hernia: No hernia is present. Musculoskeletal: Lumbar back: Bony tenderness present. No swelling or deformity. Decreased range of motion (secondary to pain). Negative right straight leg raise test and negative left straight leg raise test. Left hip: No deformity, tenderness or crepitus. Normal range of motion. Normal strength. Left foot: Normal capillary refill. Normal pulse. Comments: BLE-muscle strength 4/5 LLE and 5/5 RLE. Reflexes 2+ and symmetric Skin: General: Skin is warm and dry. Findings: No rash. Neurological: Mental Status: She is alert. Psychiatric: Mood and Affect: Mood is anxious. Affect is tearful. DATA REVIEWED: Most recent imaging ASSESSMENT/PLAN: 1. Acute left-sided low back pain with left-sided sciatica - ICD9: 724.2, 724.3, ICD10: M54.42 (primary diagnosis) Sudden onset of acute low back pain, worsening despite initial conservative treatment with Tylenol,NSAID's, Flexeril, prednisone taper x 2, Gabapentin and PT. Red flags: history of malignancy, inability to find a comfortable position, severe pain at night, gait or balance disturbance, and progressive weakness. Advanced imaging with MRI LUMBAR SPINE WO IVCON indicated Will also evaluate further with: - COMPLETE BLOOD COUNT - COMPREHENSIVE METABOLIC PANEL - SEDIMENTATION RATE, WESTERGREN - C-REACTIVE PROTEIN - URINALYSIS WITH MICROSCOPIC, REFLEX CULTURE OXYCODONE-ACETAMINOPHEN 5 MG-325 MG TABLET twice a day as needed for severe pain 2. Diarrhea, unspecified type - ICD9: 787.91, ICD10: R19.7 Etiology unclear. Possibly medication side effect or stress from pain and lack of sleep Check: - COMPLETE BLOOD COUNT - COMPREHENSIVE METABOLIC PANEL - IMMUNOCHEMICAL FECAL OCCULT BLOOD TEST Further recommendations pending results 3. Numbness and tingling of left lower extremity - ICD9: 782.0, ICD10: R20.0, R20.2 See #1 - MRI LUMBAR SPINE WO IVCON 4. Weakness of left lower extremity - ICD9: 729.89, ICD10: R29.898 See #1 - MRI LUMBAR SPINE WO IVCON 5. Radiculopathy of lumbar region - ICD9: 724.4, ICD10: M54.16 See #1 - MRI LUMBAR SPINE WO IVCON 6. Acute hip pain, left - ICD9: 719.45, ICD10: M25.552 As above - OXYCODONE-ACETAMINOPHEN 5 MG-325 MG TABLET 7. Left groin pain - ICD9: 789.04, ICD10: R10.32 As above - COMPLETE BLOOD COUNT - COMPREHENSIVE METABOLIC PANEL 8. History of breast cancer - ICD9: V10.3, ICD10: Z85.3 As above - SEDIMENTATION RATE, WESTERGREN - C-REACTIVE PROTEIN - MRI LUMBAR SPINE WO IVCON Prescription instructions reviewed with patient as applicable. Potential red flag symptoms discussed with the patient. Reviewed appropriate action plan to take if red flag symptoms occur. Patient agreeable to treatment plan. Cheryl Fisher APRN.PHARMACEUTICAL OFFICER documented in this encounterBlanchard Valley [facility]08[facility]Ch[facility]08-20-2024 Telephone encounter Note* Telephone Encounter - Kayleen Starr LPN - 10/03/2023 3:29 PM EDT Pt states she is getting PT but it is not helping. Pt has had PT 1X wk X 3 wks so far. Pt states PTmentioned she may need an MRI. Pt is taking Tylenol but states it does not help. Pt requested an appt today with Jose. No appt avail with Cheryl but appt was given for 10/04/23 with Cheryl. Kayleen Starr LPN [facility]08-20-2024 Miscellaneous Notes* Telephone Encounter - Kayleen Starr LPN - 10/03/2023 3:29 PM EDT Pt states she is getting PT but it is not helping. Pt has had PT 1X wk X 3 wks so far. Pt states PTmentioned she may need an MRI. Pt is taking Tylenol but states it does not help. Pt requested an appt today with Alinar. No appt avail with Cheryl but appt was given for 10/04/23 with Cheryl. Kayleen Starr LPN documented in this encounterBlanchard Valley Health System [facility]08-20[facility]2024 NoteChillic[facility]08-20-2024 History of Present illness Narrative* Jonas Ambrosio, PT - 10/03/2023 2:20 PM EDT Episode Visit Count: 3 Therapist That Will Accept/Oversee The Plan Of Care: Jonas Ambrosio PT Start of Care Date: 09/12/23 Onset Date: 08/22/23 Plan of Care Certification Date: 01/11/19 Next Certification Due Date: 03/08/19 Patient Identified by Name and Date of : Yes REHABILITATION AND SPORTS THERAPY PHYSICAL THERAPY TREATMENT NOTE ASSESSMENT: Shakira Franklin tolerated the session with expected muscle soreness. She demonstrated noimprovement in symptoms with any manual techniques. The patient will continue to benefit from ongoing skilled physical therapy to progress toward set goals. PLAN FOR NEXT VISIT: PN SUBJECTIVE: Pt state she is in a lot of pain. The pain is not any better. Pain: Pain Pain Location: Leg - Right OBJECTIVE MEASURES WITH LEVEL OF FUNCTION: Pain with IR of the L anterior hip pt calls a catching Standing lumbar ext does not change symptoms No change in symptoms with hip ER on the R Lumbar flexion worsens pain in the LLE Pt sitting with trunk leaning to the L TREATMENT: Manual Therapy: 1: Manual SKTC 4 x 30 sec 2: Supine lumbar traction with stool and strap Skilled Intervention: Manual skills to improve joint mobility, ROM, and decrease pain. Utilized anatomy knowledge of the therapist, and assessment of patient's response to intervention. Billing Therapeutic Exercise Treatment Minutes: 43 Skilled Treatment Time Minutes (timed and untimed codes): 43 Total Session Time (minutes): 43 Session Start Time : 1415 Session Stop Time : 1458 Jonas Ambrosio PT documented in this encounterBlanchard Valley [facility]08-[facility]24 NoteCh[facility]ic[facility]08-16-2024 History of Present illness Narrative* Herbie Murillo, PT - 09/29/2023 9:31 AM EDT Episode Visit Count: 2 Therapist That Will Accept/Oversee The Plan Of Care: Jonas Ambrosio PT Start of Care Date: 09/12/23 Onset Date: 08/22/23 Plan of Care Certification Date: 01/11/19 Next Certification Due Date: 03/08/19 Patient Identified by Name and Date of : Yes REHABILITATION AND SPORTS THERAPY PHYSICAL THERAPY TREATMENT NOTE ASSESSMENT: Shakira Franklin tolerated the session with decreased activity tolerance due to severity of low back pain, fatigue, and expected muscle soreness. She demonstrated improvements in tingling of LLE with piriformis stretching. The patient will continue to benefit from ongoing skilled physical therapy to progress toward set goals. PLAN FOR NEXT VISIT: Asses response to seated piriformis stretch. continue with stretching as tolerated for pain relief and symptom management.Patient should be checked for any signs of central vs peripheral compression of neuro structures SUBJECTIVE: Pt reports that her knee is constantly painful. Depending on how she moves, the groin hurts. Pt states that her hip is hurting as well. Pain: Pain Pain Level: 6 Pain Location: Leg - Right Post Treatment Pain Post Treatment Pain Location: Leg - Left Post Treatment Symptoms: At end of session, pt stated that she did not have any tingling, just numbness into L big toe. OBJECTIVE MEASURES WITH LEVEL OF FUNCTION: Lumbar extension did not make symptoms worse TREATMENT: Therapeutic Exercise: 1: *Seated piriformis stretch on LLE 3x30 seconds (decreased tingling in LLE) 2: Supine hip flexor stretch off edge of table with therapist supporting LLE 3x30 seconds (minimal stretch felt in L hip flexors, irritated LE with bringing LE back up onto table.) 3: Standing lumbar extension 2x5, no change in symptoms 4: Considered prone lying, but pt refused to try position. Skilled Intervention: Patient was educated in proper exercise technique and purpose for exercises. Reviewed and educated patient on additions/changes for home exercise program as above (*). Skilled judgment was used in selection of appropriate interventions. Correct performance of therapeutic exercises was facilitated with verbal and visual cuing. Manual Therapy: 1: Attempted to stretch out L hip flexors with pt in R sidelying, no change in symptoms, made tinglingin big toe worse. Skilled Intervention: Manual skills to improve joint mobility, ROM, and decrease pain. Utilized anatomy knowledge of the therapist, and assessment of patient's response to intervention. Billing Therapeutic Exercise Treatment Minutes: 40 Manual TherapyTreatment Minutes: 5 Skilled Treatment Time Minutes (timed and untimed codes): 45 Total Session Time (minutes): 45 Session Start Time : 929 Session Stop Time : 5 JUSTUS Morrison PT documented [facility]Bl[facility] History of Present illness Narrative* Jonas Ambrosio PT - 09/12/2023 4:24 PM EDT Images from the original note were not included. Episode Visit Count: Visit count could not be calculated. Make sure you are using a visit which is associated with an episode. Therapist That Will Accept/Oversee The Plan Of Care: Jonas Ambrosio PT Start of Care Date: 09/12/23 Onset Date: 08/22/23 Plan of Care Certification Date: 01/11/19 Next Certification Due Date: 03/08/19 Patient Identified by Name and Date of : Yes REHABILITATION AND SPORTS THERAPY PHYSICAL THERAPY EVALUATION PLAN OF CARE: Assessment: Shakira Franklin presents with chief complaint of LLE pain that interferes with sitting .She presents with impairments in ADL's, independence in exercise, and overall function. PROMIS (Patient-Reported Outcomes Measurement Information System) scores were reviewed and identified as a rehabilitation concern. Prognosis for therapy is Good due to: current objective clinical presentation . Pt has increased pain in the RLE with multiple directions of movement which may improve with a core stability program. Difficult to fully assess pt due to pain levels and pain with turning over on theplinth. She will benefit from skilled therapy services to meet the goals established for this plan of care as noted below. Classification Pain Mechanism Classification: Neuropathic Low Back Pain Classification: Symptom Modulation Goals for Episode of Care: created on 09/12/23 through 11/07/23 Independent in home exercises. Restore pain-free lumbar ROM to WNL to allow for ease of work duties Sit 1 hours without pain/symptoms to allow for ease of driving and sitting at work Pt will be able to turn over in bed without pain for ease of sleeping Patient Goals: Reduce the pain Planned Interventions, Frequency, and Duration: Current Frequency: 1x/week Duration: 8 weeks Total Number of Visits Planned: 8 Planned Treatment Interventions: Therapeutic exercise (28280), Neuromuscular re- education (97328), Manual therapy (16267), Therapeutic activities (29555), Self- chcf management (53717), Patient/Family/Caregiver Education PLAN FOR NEXT VISIT: Standing exercises to strengthening the core (neutral spine) as sitting and lying down is too painful for patient Patient demonstrates good understanding of plan of care and treatment. The above goals and plan of care were discussed and agreed upon by patient/family. SUBJECTIVE: Pain in the groin, knee, leg, and down to the foot. Tingling in the leg. Pain in the butt. Tinglingis below the knee with slight numbness. There is tingling in the back. Bending down stops her. Putting shoes on is painful. Few years ago had a injury when lifting (bending and twisting) which causeda buldging disc when she had an MRI. Patient Goals: Reduce the pain Functional Limitations: sitting Prior Level of Function: Independent without limitations Intake Information: Prescription present Previous Treatment: Steroids , Muscle relaxer Pain: Pain Pain Level: 8 Pain Location: Leg - Right PROMIS Scales 09/11/2023 Higher is Better Phys Func - Score 39 (moderate dysfunction) Phys Func - Percentile 14 T-scores: mean of general population = 50. 5 points is clinically meaningfully difference Percentiles provide an indication of how the patient's score ranks in relation to the general population. Higher percentile rankings indicate better function/quality of life. 50th percentile is the average of the general population and indicates half of respondents had a worse score. OBJECTIVE MEASURES WITH LEVEL OF FUNCTION: Posture / Alignment Posture: (Sitting with R trunk lean. Visibly uncomfortable while sitting. Pt is fidgeting.) Lumbar Spine AROM Lumbar Flexion: Normal, Peripheralizing Lumbar Extension: Normal Lumbar R Side-Bend: Normal Lumbar L Side-Bend: Increased pain, Normal Lumbar R Rotation: Increased pain, Normal Spine Joint Mobility Spine Joint Mobility : Lumbar/Thoracic Joint Mobility - L1: WNL Joint Mobility - L2: WNL Joint Mobility - L3: WNL Joint Mobility - L4: WNL (Pressure pain in the back) Joint Mobility - L5: WNL (Pressure pain in the back) Lumbar traction does not appear to decrease pain in the LLE Education: Education Learning Preferences: Demonstration, Explanation, Performance, Printed Materials Barriers: None Learning/educational needs: Home exercise program, Plan of Care, Changes in Plan of Care Education Provided: Yes, see treatment interventions for education provided Education Provided To: Patient Education Mode/Type: Demonstration, Explanation/Discussion, Literature/Printed Materials, Performance Response to Education/Teach Back: States/Identifies, Return Demonstration TREATMENT: PT Treatment Interventions: Therapeutic Exercise Evaluation Therapeutic Exercise: 2: Hooklying TA 2 x 5 (pain created into the LLE so stopped) 3: Standing [id number] TB 2 x 10 each side Skilled Intervention: Patient was educated in proper exercise technique and purpose for exercises. Correct performance of therapeutic exercises was facilitated with verbal and visual cuing. Billing * Evaluation Low Complexity: 1 Unit Therapeutic Exercise Treatment Minutes: 15 Skilled Treatment Time Minutes (timed and untimed codes): 55 Total Session Time (minutes): 55 Session Start Time : 1624 Session Stop Time : 1719 Jonas Ambrosio PT documented in this encounterBl[facility]07[facility] History of Present illness Narrative* Radha Diaz RT(R) - 09/12/2023 2:40 PM EDT Radiology Service Progress Note PATIENT NAME: Shakira Franklin DATE OF SERVICE: September 12, 2023 TIME: 2:50 PM PATIENT IDENTITY VERIFICATION COMPLETED USING TWO (2) IDENTIFIERS: Name and Date of confirmedby patient verbally. FALL SCREENING: Has the patient had 2 falls in the last year or 1 fall with injury or currently using an Ambulatory Assistive Device (Walker, Cane, Wheelchair, Crutches, etc.)? No PATIENT GENDER DATA: Female. status: : No status: NO. PATIENT RELEVANT IMPLANT DATA REVIEWED: Yes PATIENT PRESENTS WITH AN IMPLANTABLE OR ATTACHED WARE CLEANER: No RADIOLOGY DEPARTMENT: General X-ray: Exam(s) Completed: Spine X-Ray(s): Lumbar AP / LAT / L5-S1 Pelvis X-Ray: Pelvis with Hip Left PERIPHERAL IV DATA: Not applicable SIGNED BY: RT Sil(R) September 12, 2023 2:50 PM documented in this encounterBlanchard [facility]07-30-2024 Note[facility]07-30-2024 NoteCh[facility]07-30-2024 History of Present illness Narrative* Cheryl Fisher, ACID TREATER.PHARMACEUTICAL OFFICER - 09/12/2023 2:23 PM EDT CC: Patient presents with: Follow Up: Left sciatica HPI Shakira Franklin is a 62 year old female who presents today for above. 08/31 Evaluated in the [facility] care for two week history of left buttock pain radiating down to knee. There was no injury that patient could recall, just woke up one morning with the pain. Treated with prednisone and Flexeril 09/06 Returned to the [facility] care for persistent pain in the left hip and groin. Treated with another prednisone taper and Flexeril refilled. Referred to PT. Today patient reports no improvement in pain. Still in the left low back, buttock and groin with radiation down the leg however she is now experiencing constant pain in the left knee down to the footalong with numbness and tingling. Pain is aggravated by sitting and better when laying down once she is in a comfortable position. It does not wake her up at night. She has been taking prednisone, flexeril and Tylenol without any relief. She has a history of back pain but this is different. Denies severe pain at night, bowel incontinence, bladder incontinence, saddle anesthesia, gait or balance disturbance, progressive weakness, IV drug abuse, and chronic steroid use. She is scheduled today with PT. She reports loose watery stools for the past few days. Unsure if it is a medication side effect. Denies fever, chills, abdominal pain, nausea, vomiting, black/bloody stools. Has not taken anything for the diarrhea. Review of Systems See HPI PAST MEDICAL HISTORY Diagnosis Date Abnormal uterine bleeding (AUB) 2001 Hysterectomy Breast cancer (HCC) 03/06/2017 Lump or mass in breast left breast Malignant neoplasm of right breast in female, estrogen receptor positive (HCC) 03/06/2017 Mitral valve prolapse PVC (premature ventricular contraction) Smoker Supraventricular tachycardia (HCC) 11/23/2020 PAST SURGICAL HISTORY Procedure Laterality Date AXILLARY LYMPHADENECTOMY 07/31/2012 right axilla BREAST AUGMENTATION W/PROSTHETIC IMPLANT 1999 BREAST BIOPSY CORE 05/30/2012 right breast BREAST BIOPSY CORE 06/06/2012 right breast BREAST RECONSTRUCTION 07/19/2012 right breast single step implant CARPAL TUNNEL Bilateral wrists COLONOSCOPY FLX DX W/COLLJ SPEC WHEN PFRMD 01/01/2013 Normal colonoscopy-5 year followup - family history COLONOSCOPY FLX DX W/COLLJ SPEC WHEN PFRMD 05/08/2013 Colonoscopy EGD TRANSORAL BIOPSY SINGLE/MULTIPLE 01/01/2013 gastritis FNA UNDER GUIDANCE 06/06/2012 right breast by ultrasound INCISE FINGER TENDON SHEATH Right 09/18/2019 Right trigger thumb release LIG/TRNSXJ FLP TUBE ABDL/VAG APPR UNI/BI 1984 MASTECTOMY, SIMPLE, COMPLETE 07/19/2012 right breast with SLND PAST SURGICAL HISTORY OF oral surgery PAST SURGICAL HISTORY OF removal of pingula left eye TONSILLECTOMY HX VAGINAL HYSTERECTOMY UTERUS 250 GM/< 2001 AUB, possible abnormal pap prior to hysterectomy ALLERGIES Arimidex [Anastrozole], Aromasin [Exemestane], Tamoxifen, and Letrozole MEDICATIONS cyclobenzaprine (FLEXERIL) 10 mg tablet Take 1 tablet by mouth three times a day as needed for muscle spasm. predniSONE (DELTASONE) 10 mg tablet Take 4 tabs daily for 3 days, then 2 tabs daily for 3 days, then 1 tab daily for 3 days with food. biotin 1 mg cap Take by mouth. vitamin B complex (VITAMIN B-100 COMPLEX ORAL) Take 1 tablet by mouth once daily. fluocinonide (LIDEX) 0.05 % cream Apply to affected area two times a day as needed (for areas of rash, limit to not more than 2 weeks use at a time.). multivit-min/vit C/herb no.124 (AIRBORNE GUMMY ORAL) Take by mouth. predniSONE (DELTASONE) 10 mg tablet Take by mouth 6 pills on day 1, 5 pills on day 2, 4 pills on day 3, 3 pills on day 4, 2 pills on day 5, 1 pill on day 6 FAMILY HISTORY Problem Relation Age of Onset Anesthesia Father Macular Degen Father other (Other) Father Colon Cancer Father 60 Skin Cancer Father Allergies Mother Heart Mother Hypertension Mother Stroke Mother Hypertension Sister Blindness Sister Lymphoma Sister Allergies Sister other (non-hodgkins lymphoma) Sister other (Jim-Echo Syndrome) Sister Heart Attack Brother 57 other (Leukemia) Paternal Aunt Colon Cancer Paternal Uncle dx 70's other (Leukemia) Paternal Uncle Breast Cancer Other maternal aunt, in her 60's Prostate Cancer Other paternal cousin Cancer Other paternal first cousin dx lacrimal sac tumor d. 25 Cancer Other /paternal first cousin dx tumor size of cabbage on chest wall Social History Tobacco Use Smoking status: Former Packs/day: 0.50 Years: 12.00 Additional pack years: 0.00 Total pack years: 6.00 Types: Cigarettes Quit date: 08/31/2021 Years since quittin.0 Smokeless tobacco: Never Tobacco comments: relapsed 10/2020 Vaping Use Vaping Use: Never used Substance Use Topics Alcohol use: Not Currently Comment: once a month, 1 drink Drug use: Not Currently Comment: History of remote cocaine use(as young adult) BP 126/84 Pulse 73 Resp 16 Wt 72.1 kg (159 lb) SpO2 96% BMI 26.17 kg/m Physical Exam Vitals reviewed. Constitutional: General: She is not in acute distress. Appearance: Normal appearance. She is not ill-appearing or toxic-appearing. Cardiovascular: Rate and Rhythm: Normal rate and regular rhythm. Heart sounds: Normal heart sounds. Pulmonary: Effort: Pulmonary effort is normal. Breath sounds: Normal breath sounds. No wheezing, rhonchi or rales. Abdominal: General: Bowel sounds are normal. There is no distension. Palpations: Abdomen is soft. Tenderness: There is no abdominal tenderness. Musculoskeletal: Lumbar back: No deformity, spasms or tenderness. Normal range of motion. Negative right straight leg raise test and negative left straight leg raise test. Left hip: Tenderness (posterolateral and anterior) present. No deformity or crepitus. Normal range of motion. Normal strength. Left upper leg: No swelling, deformity or tenderness. Left knee: No swelling or deformity. Normal range of motion. No tenderness. Left lower leg: No swelling, deformity or tenderness. Left foot: Normal capillary refill. Normal pulse. Comments: BLE: Reflexes:2+ and symmetric. Muscle strength: 5/5. Skin: General: Skin is warm and dry. Neurological: Mental Status: She is alert. ASSESSMENT/PLAN: 1. Acute left-sided low back pain with left-sided sciatica - ICD9: 724.2, 724.3, ICD10: M54.42 (primary diagnosis) Etiology unclear Red flags: history of malignancy. Imaging: needs further evaluation with x-rays of the hip and spine Start treatment with Percocet as needed. Cautioned patient this can cause drowsiness. Also discussed non-medication measures with ice, heat, stretching; see patient instructions Follow-up pending results of x-rays. To ER for any worsening symptoms Keep appointment with PT - XR LUMBAR GENERAL 3V AP/LAT/L5-S1 - OXYCODONE-ACETAMINOPHEN 5 MG-325 MG TABLET 2. Acute hip pain, left - ICD9: 719.45, ICD10: M25.552 As above - XR HIP GENERAL 3V PELV/AP/LAT LEFT - OXYCODONE-ACETAMINOPHEN 5 MG-325 MG TABLET 3. Acute pain of left lower extremity - ICD9: 729.5, ICD10: M79.605 As above Prescription instructions reviewed with patient as applicable. Potential red flag symptoms discussed with the patient. Reviewed appropriate action plan to take if red flag symptoms occur. Patient agreeable to treatment plan. Cheryl Fisher APRN.PHARMACEUTICAL OFFICER documented in this encounterBlanchard Valley [facility]07-[facility]24 Note[facility]07-26-2024 History of Present illness Narrative* Naldo Peguero MD - 09/08/2023 10:36 AM EDT Patient presents with: Left Hip Pain: left side hip and groin x over 1 week HPI: Back pain: Duration: 3-4 weeks; woke with the pain, no known injury. Seen here 1 week ago. Character: aching, cramping, and sharp. Not resolved since treated, maybe a little better. Location: left lower buttock Radiation: left hip, anterior thigh, and left knee. Now radiating to below the knee. Aggravating: sitting is the worst. Relieving: hot shower Pain relievers: Motrin, prednisone taper, flexeril. Associated: Hx of back injury a couple years ago, sleep disturbance from pain. Pertinent negatives: Denies numbness or weakness, fever, loss of bladder or bowel control. Imaging: Lumbar x-ray 04/07/2021 showed mild degenerative changes of the lower lumbar spine. MRI 06/26/20 showed: 1. Small extruded ascending disc fragment T12-L1 with minimal effacement thecal sac. 2. Disc bulge with ligamentum flavum hypertrophy and mild effacement thecal sac L4-5. 3. Small right paracentral disc protrusion L5-S1 without stenosis. Physical Therapy: yes, after injury a few years ago. Tried some exercises she got off the internet a few weeks ago. PAST MEDICAL HISTORY Diagnosis Date Abnormal uterine bleeding (AUB) 2001 Hysterectomy Breast cancer ([facility]) 03/06/2017 Lump or mass in breast left breast Malignant neoplasm of right breast in female, estrogen receptor positive ([facility]) 03/06/2017 Mitral valve prolapse PVC (premature ventricular contraction) Smoker Supraventricular tachycardia ([facility]) 11/23/2020 PAST SURGICAL HISTORY Procedure Laterality Date AXILLARY LYMPHADENECTOMY 07/31/2012 right axilla BREAST AUGMENTATION W/PROSTHETIC IMPLANT 1999 BREAST BIOPSY CORE 05/30/2012 right breast BREAST BIOPSY CORE 06/06/2012 right breast BREAST RECONSTRUCTION 07/19/2012 right breast single step implant CARPAL TUNNEL Bilateral wrists COLONOSCOPY FLX DX W/COLLJ SPEC WHEN PFRMD 01/01/2013 Normal colonoscopy-5 year followup - family history COLONOSCOPY FLX DX W/COLLJ SPEC WHEN PFRMD 05/08/2013 Colonoscopy EGD TRANSORAL BIOPSY SINGLE/MULTIPLE 01/01/2013 gastritis FNA UNDER GUIDANCE 06/06/2012 right breast by ultrasound INCISE FINGER TENDON SHEATH Right 09/18/2019 Right trigger thumb release LIG/TRNSXJ FLP TUBE ABDL/VAG APPR UNI/BI 1984 MASTECTOMY, SIMPLE, COMPLETE 07/19/2012 right breast with SLND PAST SURGICAL HISTORY OF oral surgery PAST SURGICAL HISTORY OF removal of pingula left eye TONSILLECTOMY HX VAGINAL HYSTERECTOMY UTERUS 250 GM/< 2001 AUB, possible abnormal pap prior to hysterectomy MEDICATIONS: cyclobenzaprine (FLEXERIL) 10 mg tablet Take 1 tablet by mouth three times a day as needed for muscle spasm. predniSONE (DELTASONE) 10 mg tablet Take 4 tabs daily for 3 days, then 2 tabs daily for 3 days, then 1 tab daily for 3 days with food. biotin 1 mg cap Take by mouth. vitamin B complex (VITAMIN B-100 COMPLEX ORAL) Take 1 tablet by mouth once daily. fluocinonide (LIDEX) 0.05 % cream Apply to affected area two times a day as needed (for areas of rash, limit to not more than 2 weeks use at a time.). multivit-min/vit C/herb no.124 (AIRBORNE GUMMY ORAL) Take by mouth. ALLERGIES: ALLERGIES Allergen Reactions Arimidex [Anastrozo* Rash Aromasin [Exemestan* Diarrhea Tamoxifen Rash Letrozole Rash VITALS: BP 128/76 Pulse 78 Temp 36.1 C (97 F) Resp 18 Wt 71.7 kg (158 lb 1.1 oz) SpO2 98% BMI 26.02 kg/m PHYSICAL EXAM: GEN: pleasant, alert, leaning to the side, stressed HEENT: PERRL, EOMI, MMM HEART: regular rate, regular rhythm, no murmurs LUNGS: clear to auscultation, no wheezes or crackles, no increased WOB BACK: Normal curvature of spine. No midline tenderness. Left lumbosacral paraspinal tenderness. Straight leg test negative. Normal lower extremity strength. Antalgic get up and go. ASSESSMENT/PLAN: 1. Acute left-sided low back pain with left-sided sciatica - ICD9: 724.2, 724.3, ICD10: M54.42 Repeat - PREDNISONE 10 MG TABLET taper. Cautioned to avoid Ibuprofen while taking steroid to reducethe risk of ulcer/gastritis. Refill - CYCLOBENZAPRINE 10 MG TABLET - encouraged to avoid alcohol or extra doses to reduce the risk of over-sedation - CONSULT TO PHYSICAL THERAPY. Resume home exercises. She may consider chiropractic manipulation. Off work tomorrow. Schedule follow up with PCP. Seek immediate evaluation for loss of bladder or bowel control, unexplained fever, or progressive weakness or numbness. Naldo Peguero MD documented in this encounterCleveland [id number] NoteChillicothe Hospital07-19-2024 History of Present illness Narrative* Rut Aceves APRN.PHARMACEUTICAL OFFICER - 09/01/2023 6:13 PM EDT This note was created using [employer]. Subjective Shakira Franklin is a 62 year old female. 62 year old female with no significant PMH presents for musculoskeletal problems. Acute onset approximately 2 to 3 weeks ago Endorses that she experienced pain in her upper left buttocks. Small sharp pain States that it has since radiated down hip and to knee Think it is sciatica Denies trauma or injury, but does make notation that 2 to 3 weeks ago she was cleaning her fathers house related to his recent . 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 No irrigation worker was used. Back Pain This is a new problem. The current episode started more than 1 week ago. The problem occurs constantly. The problem has not changed since onset.The pain is associated with no known injury. The pain is present in the sacro-iliac joint. The quality of the pain is described as stabbing, aching and shooting. The pain radiates to the left thigh and left knee. The pain is at a severity of 7/10. The pain is moderate. The symptoms are aggravated by bending, twisting and certain positions. The pain is The same all the time. Stiffness is present All day. Pertinent negatives include no chest pain, no fever, no numbness, no weight loss, no headaches, no abdominal pain, no abdominal swelling, no bowel in continence, no perianal numbness, no bladder incontinence, no dysuria, no pelvic pain, no leg pain,no paresthesias, no paresis, no tingling and no weakness. She has tried nothing for the symptoms. The treatment provided no relief. Risk factors include menopause, lack of exercise and a sedentary lifestyle. PAST MEDICAL HISTORY Diagnosis Date Abnormal uterine bleeding (AUB) 2001 Hysterectomy Breast cancer (HCC) 03/06/2017 Lump or mass in breast left breast Malignant neoplasm of right breast in female, estrogen receptor positive (HCC) 03/06/2017 Mitral valve prolapse PVC (premature ventricular contraction) Smoker Supraventricular tachycardia (HCC) 11/23/2020 PAST SURGICAL HISTORY Procedure Laterality Date AXILLARY LYMPHADENECTOMY 07/31/2012 right axilla BREAST AUGMENTATION W/PROSTHETIC IMPLANT 1999 BREAST BIOPSY CORE 05/30/2012 right breast BREAST BIOPSY CORE 06/06/2012 right breast BREAST RECONSTRUCTION 07/19/2012 right breast single step implant CARPAL TUNNEL Bilateral wrists COLONOSCOPY FLX DX W/COLLJ SPEC WHEN PFRMD 01/01/2013 Normal colonoscopy-5 year followup - family history COLONOSCOPY FLX DX W/COLLJ SPEC WHEN PFRMD 05/08/2013 Colonoscopy EGD TRANSORAL BIOPSY SINGLE/MULTIPLE 01/01/2013 gastritis FNA UNDER GUIDANCE 06/06/2012 right breast by ultrasound INCISE FINGER TENDON SHEATH Right 09/18/2019 Right trigger thumb release LIG/TRNSXJ FLP TUBE ABDL/VAG APPR UNI/BI 1984 MASTECTOMY, SIMPLE, COMPLETE 07/19/2012 right breast with SLND PAST SURGICAL HISTORY OF oral surgery PAST SURGICAL HISTORY OF removal of pingula left eye TONSILLECTOMY HX VAGINAL HYSTERECTOMY UTERUS 250 GM/< 2002 AUB, possible abnormal pap prior to hysterectomy ALLERGIES Arimidex [Anastrozole], Aromasin [Exemestane], Tamoxifen, and Letrozole MEDICATIONS biotin 1 mg cap Take by mouth. vitamin B complex (VITAMIN B-100 COMPLEX ORAL) Take 1 tablet by mouth once daily. fluocinonide (LIDEX) 0.05 % cream Apply to affected area two times a day as needed (for areas of rash, limit to not more than 2 weeks use at a time.). multivit-min/vit C/herb no.124 (A[place] GUMMY ORAL) Take by mouth. cyclobenzaprine (FLEXERIL) 10 mg tablet Take 1 tablet by mouth three times a day as needed for muscle spasm. predniSONE (DELTASONE) 10 mg tablet Take 4 tabs daily for 3 days, then 2 tabs daily for 3 days, then 1 tab daily for 3 days with food. FAMILY HISTORY Problem Relation Age of Onset Anesthesia Father Macular Degen Father other (Other) Father Colon Cancer Father 60 Skin Cancer Father Allergies Mother Heart Mother Hypertension Mother Stroke Mother Hypertension Sister Blindness Sister Lymphoma Sister Allergies Sister other (non-hodgkins lymphoma) Sister other ([place]-Echo Syndrome) Sister Heart Attack Brother 57 other (Leukemia) Paternal Aunt Colon Cancer Paternal Uncle dx 70's other (Leukemia) Paternal Uncle Breast Cancer Other maternal aunt, in her 60's Prostate Cancer Other paternal cousin Cancer Other paternal first cousin dx lacrimal sac tumor d. 25 Cancer Other /paternal first cousin dx tumor size of cabbage on chest wall Social History Tobacco Use Smoking status: Former Packs/day: 0.50 Years: 12.00 Additional pack years: 0.00 Total pack years: 6.00 Types: Cigarettes Quit date: 08/31/2021 Years since quittin.0 Smokeless tobacco: Never Tobacco comments: relapsed 10/2020 Vaping Use Vaping Use: Never used Substance Use Topics Alcohol use: Not Currently Comment: once a month, 1 drink Drug use: Not Currently Comment: History of remote cocaine use(as young adult) Review of Systems Constitutional: Negative for activity change, appetite change, fever and weight loss. Respiratory: Negative for apnea, cough, choking and chest tightness. Cardiovascular: Negative for chest pain. Gastrointestinal: Negative for abdominal pain, bowel incontinence, diarrhea, nausea, rectal pain and vomiting. Genitourinary: Negative for bladder incontinence, dysuria and pelvic pain. Musculoskeletal: Positive for back pain. Negative for gait problem. Skin: Negative for color change, pallor, rash and wound. Allergic/Immunologic: Negative for environmental allergies, food allergies and immunocompromised state. Neurological: Negative for dizziness, tingling, seizures, syncope, facial asymmetry, speech difficulty, weakness, light-headedness, numbness, headaches and paresthesias. Hematological: Negative for adenopathy. Does not bruise/bleed easily. Psychiatric/Behavioral: Negative for agitation and behavioral problems. Objective BP 106/64 Pulse 76 Temp 36.5 C (97.7 F) Resp 16 Wt 73.1 kg (161 lb 2.5 oz) SpO2 97% BMI26.53 kg/m Physical Exam Vitals and nursing note reviewed. Constitutional: General: She is not in acute distress. Appearance: Normal appearance. She is normal weight. She is not ill-appearing, toxic-appearing or diaphoretic. HENT: Head: Normocephalic and atraumatic. Right Ear: Ear canal and external ear normal. Left Ear: Ear canal and external ear normal. Nose: Nose normal. No congestion or rhinorrhea. Mouth/Throat: Mouth: Mucous membranes are moist. Pharynx: No oropharyngeal exudate or posterior oropharyngeal erythema. Eyes: General: Right eye: No discharge. Left eye: No discharge. Extraocular Movements: Extraocular movements intact. Conjunctiva/sclera: Conjunctivae normal. Pupils: Pupils are equal, round, and reactive to light. Cardiovascular: Rate and Rhythm: Normal rate and regular rhythm. Pulses: Normal pulses. Heart sounds: Normal heart sounds. No murmur heard. No friction rub. Pulmonary: Effort: Pulmonary effort is normal. No respiratory distress. Breath sounds: Normal breath sounds. No stridor. No wheezing, rhonchi or rales. Chest: Chest wall: No tenderness. Abdominal: General: Abdomen is flat. There is no distension. Palpations: Abdomen is soft. There is no mass. Tenderness: There is no abdominal tenderness. There is no right CVA tenderness, left CVA tenderness, guarding or rebound. Hernia: No hernia is present. Musculoskeletal: General: Tenderness present. No swelling, deformity or signs of injury. Normal range of motion. Cervical back: Normal range of motion and neck supple. No rigidity. Right lower leg: No edema. Left lower leg: No edema. Comments: Left sided SI joint TTP +straight leg raise right NO midline cervical, thoracic, or lumbar TTP 5/5 strength Ambulatory in exam room Lymphadenopathy: Cervical: No cervical adenopathy. Skin: General: Skin is warm and dry. Capillary Refill: Capillary refill takes less than 2 seconds. Coloration: Skin is not jaundiced or pale. Findings: No bruising, erythema, lesion or rash. Neurological: General: No focal deficit present. Mental Status: She is alert and oriented to person, place, and time. Cranial Nerves: No cranial nerve deficit. Sensory: No sensory deficit. Motor: No weakness. Coordination: Coordination normal. Gait: Gait normal. Psychiatric: Mood and Affect: Mood normal. Behavior: Behavior normal. Thought Content: Thought content normal. Judgment: Judgment normal. Assessment and Plan ASSESSMENT/PLAN: 1. Left sided sciatica - ICD9: 724.3, ICD10: M54.32 Sciatica - Warm moist heat for 20 min three times a day - Prednisone taper see orders - Muscle relaxant- see orders - Patient given instructions use of medications as ordered, intermittent rest, back care exercise program, improved posture, proper lifting techniques, intermittent use of heat, and avoiding sleepingon a heating pad - Follow up in 3 days or sooner if symptoms persist or worsen - CYCLOBENZAPRINE 10 MG TABLET - PREDNISONE 10 MG TABLET Rut Aceves APRN.CNP documented in this encounterBl[facility] Tele[facility] encounter Note * Telephone Encounter - Diane Garza LPN - 08/03/2023 2:23 PM EDT Spoke with pt. Informed no abnormality noted on ultrasound . F/U in 1 year. Pt. Voiced understanding. Diane Garza LPN [facility]06-20-2024 Miscellaneous Notes* Telephone Encounter - Diane Garza LPN - 08/03/2023 2:23 PM EDT Spoke with pt. Informed no abnormality noted on ultrasound . F/U in 1 year. Pt. Voiced understanding. Diane Garza LPN * Telephone Encounter - Alea Langston APRN.CNP - 08/03/2023 2:19 PM EDT Please inform pt. that no abnormality was seen on US. Follow up in one year. Alea Langston APRN.VALERIA documented in this encounterBlanchard Valley [facility]06[facility] Telephone encounter Note * Telephone Encounter - Alea Langston APRN.CNP - 08/03/2023 2:19 PM EDT Please inform pt. that no abnormality was seen on US. Follow up in one year. Alea Langston APRN.CNP [facility]06-19-2024 NoteIMPRESSION: INCOMPLETE: NEEDS ADDITIONAL IMAGING EVALUATION There is no mammographic abnormality seen in the right breast to correspond with the pain and the skin retraction; however, further workup with ultrasound is recommended. Ranjith martinez/abdulkadir:08/02/2023 15:12:32 Director Of Graduate Medical Education(s): RT Art(R)(M), [facility] Mammogram BI-RADS: 0 Incomplete: needs additional imaging evaluation Multiple national specialty organizations have released breast cancer screening guidelines for women at average risk for developing breast cancer - guidelines that are based on both evidence and opinion, yet differ on when to start and how often to screen for breast cancer. With representation from Breast Imaging, Internal Medicine, Women's Health, Family Medicine, and Medical/Surgical Oncology, the [facility] has carefully reviewed the data and reached the following consensus: 1) All women should engage in shared decision-making with their providers to decide when to start and how often to screen; 2) All women should have the opportunity to start screening mammography at age 40; 3) For women ages 45-55, we recommend annual screening mammograms; 4) For women ages 55 and over, we support both the transition from an annual to a biennial interval if this aligns more with patient's values and preferences, or continuation with annual screening; 5) All women should discuss with their providers when to stop screening mammograms. Museum Director: Abdulkadir Transcribe Date/Time: Aug 02 2023 2:24P Dictated by: RANJITH HANNA MD This examination was interpreted and the report reviewed and electronically signed by: RANJITH HANNA MD on Aug 02 2023 3:12PM [facility] DIV[facility] OF [id number] [facility]Ch[facility]06-[facility]-2024 History of Present illness Narrative* Tyson Paez, Mammo Tech - 08/02/2023 2:30 PM EDT Radiology Service Progress Note PATIENT NAME: Shakira Franklin DATE OF SERVICE: August 02, 2023 TIME: 2:57 PM PATIENT IDENTITY VERIFICATION COMPLETED USING TWO (2) IDENTIFIERS: Name and Date of confirmedby patient verbally. FALL SCREENING: Has the patient had 2 falls in the last year or 1 fall with injury or currently using an Ambulatory Assistive Device (Walker, Cane, Wheelchair, Crutches, etc.)? No PATIENT GENDER DATA: Female. status: : No status: NO. PATIENT RELEVANT IMPLANT DATA REVIEWED: Not Applicable PATIENT PRESENTS WITH AN IMPLANTABLE OR ATTACHED WARE CLEANER: No RADIOLOGY DEPARTMENT: Mammography PERIPHERAL IV DATA: Not applicable SIGNED BY: Kory Cordovao Alexander August 02, 2023 2:57 PM documented in this encounterBlanchard Valley [facility]06-19-2024 [facility]Ch[facility]05-28-2024 History of Present illness Narrative* Alea Langston, CHAS.PHARMACEUTICAL OFFICER - 07/11/2023 9:43 AM EDT Chief Complaint Patient presents with: Established Patient HPI: Shakira Franklin is a 62 year old female who presents here today for complaints of R axillary tenderness. Per Dr. Mackey's previous note: H/o pt. appreciated a mass in her right breast in 11/2011. She thought it may have been a cyst as she had one in the past. Her mother had been on hospice at the time for end stage CHF/Alzheimer's disease. She sought care when thought it was enlarging in April 2012. Was seen by a senior sales manager who ordered a mammogram with ultrasound. The studies completed May 22, 2012 demonstrated a 1 x 1 x 1.3 cmhypoechoic irregular mass at the 11:00 position of the right breast in the retroareolar region on ultrasound which corresponded to an abnormality on bilateral diagnostic mammogram. Was referred to Dr. Ayala who performed a US guided biopsy 05/30/12. Pathology significant for an invasive ductal carcinoma, nuclear grade 2, with micropapillary features (see comment). - Lymphovascular invasion is identified. ER/SC both >95% and HER2(ERBB2) gene amplification is absent; the average copy number is 3.4. The HER2(ERBB2)/Chromosome 17 ratio is 1.4 (reference range is 0.8 - 1.7). Because patient had previous breast augmentation, was referred to Dr. Whitaker and Shauna. Underwent right skin-sparing mastectomy and sentinel node biopsy and immediate replacement of implant 07/19/12. Pathology: 1. Right sentinel lymph node #1, biopsy (A) - Metastatic carcinoma involving one lymph node (1/1); metastasis measures 0.6 cm in greatest dimension; with focal extranodal extension identified. 2. Right sentinel lymph node #2, biopsy (B) - One lymph node, negative for malignancy (0/1). 3. Right breast, skin-sparing mastectomy (C) - Invasive ductal carcinoma, Bartlett-Damico grade III (see comment). - Ductal carcinoma in situ, high nuclear grade, solid type with comedo necrosis and microcalcifications. - Atypical ductal hyperplasia. - Fibrocystic change including stromal fibrosis. - Biopsy site reparative changes and biopsy clips x3. 4. Right breast, implant, removal (D) - Breast implant (gross examination only). EDK/johnie/07/20/2012 COMMENT Specimen Laterality: Right Procedure: Type: Skin-sparing mastectomy Wire localization: Not applicable Lymph Node Sampling: [place] lymph nodes Tumor Size: (Size of Largest Invasive Carcinoma) Greatest dimension of largest focus of invasion over 0.1 cm: 1.8 cm Tumor Focality: Single focus of invasive carcinoma Extent of Tumor: Skin: Negative for neoplasm. Nipple: Negative for neoplasm Chest wall: No skeletal muscle is present in the specimen Margins: Invasive carcinoma: Negative Closest margin: Invasive carcinoma is present 0.9 cm from the deep margin of resection DCIS: Negative Closest margin: Ductal carcinoma in situ is present 1 cm from the deep margin of resection Histologic Type of Invasive Carcinoma: Ductal Histologic Grade: Glandular (Acinar)/Tubular Differentiation: 3 Nuclear Grade: 3 Mitotic Rate: 2 Overall Bartlett Damico Grade: III Lymph-Vascular Invasion: Present Ductal Carcinoma In Situ (DCIS): DCIS is present Type: Solid Nuclear Grade: 3 Necrosis: Comedo type Lymph Nodes: (required only if lymph nodes are present in the specimen) Number of sentinel lymph nodes examined: 2 Total number of lymph nodes examined (sentinel and nonsentinel): 2 Number of lymph nodes with macrometastases (>0.2 cm): 1 Number of lymph nodes with micrometastases (>0.2 mm to 0.2 cm and/or >200cells): 0 Number of lymph nodes with isolated tumor cells (less than or equal to 0.2 mm and less than or equal to 200 cells): 0 Number of lymph nodes without tumor cells identified: 1 Size of largest metastatic deposit (if present): 0.6 cm Extranodal Invasion: Present Amount: 0.8 mm Apparently initial specimens were negative for lara involvement (specimen improperly collected in OR), but final path showed tumor presence. So underwent subsequent ALND 07/31/12--Right axillary contents, axillary dissection (A) - Four lymphnodes, negative for metastatic carcinoma (0/4); AJCC stage pN0 Enrolled in S1007. Recurrence sore of 12 (8% average rate of distant recurrence). Randomized to AI therapy. Started exemestane 10/23/12. Couldn't get financial assistance for anastrozole. Underwent evaluation for diarrhea that started soon after beginning exemestane. Repeat colonoscopy with histologic evidence lymphocytic colitis. Patient however continued exemestane as it wasn't clear that it caused the lymphocytic colitis. Self d/c'ed exemestane in May 2013. Diarrhea significantly slowed and she had a two week period of formed stool with BM daily in am. Started Aromasin again and diarrhea started again. Stopped Aromasin after 9 days. Previous therapy: 1) Exemestane 10/2012-05/2013. Stopped due to diarrhea. 2) Letrozole 08/2013-08/2014. Stopped due to angioedema of the lips. 3) Tamoxifen. 09/2014-01/2015. Stopped due to recurrent angioedema. 4) Anastrozole. 5) Raloxifene started 06/2015. Stopped due to diarrhea. Current therapy: 1) None. Pt. noted R axillary pain It's awkward. I push on it but I don't know if it helps. Pts. father one month ago. Appetite:Good. Wt. stable. Energy level:None. Working FT. Denies fevers. Resp:denies cough or sob, quit smoking summer 2021 Cardiac:denies chest pain/occ. palpitations-chronic/stable GI:denies abd pain, n/v, moving bowels regularly-last colonoscopy 2013 :denies dysuria/hematuria Extrem:denies pain Endo:occ. hot flashes Neuro:denies symptoms of neuropathy Skin:chronic rashes/has been seen by DERM Heme:denies bleeding The ROS is otherwise negative. Past medical history, appointments, medications, allergies reviewed. No chagnes. EXAM: BP 108/74 Pulse 71 Temp 36.6 C (97.9 F) (Temporal) Wt 71.5 kg (157 lb 9.6 oz) SpO2 96% BMI 25.94 kg/m APPEARANCE Well appearing, alert, in no acute distress, well-hydrated, well nourished. HEART RRR with normal S1 and S2, no murmurs LUNG clear to auscultation BREAST FEMALE R axillary tenderness, R skin sparing mastectomy-mild dimpling @ 9 o'clock to AC, no surrounding mass/nodule LYMPH NODES No cervical lymphadenopathy, No supraclavicular lymphadenopathy, and No axillary lymphadenopathy. ABDOMEN bowel sounds normoactive, soft, non-tender EXTREMITIES No edema NEURO Awake, alert and oriented x 3, Normal gait, and No involuntary motions. SKIN Skin color, texture, turgor normal, no suspicious rashes or lesions RADIOLOGY: L mammogram 07/04/23: IMPRESSION: BENIGN FINDING There is no mammographic evidence of malignancy. A 1 year screening left mammogram is recommended. ASSESSMENT/PLAN: 1. Personal history of breast cancer - ICD9: V10.3, ICD10: Z85.3 pT1c (1.8 cm; grade III; positive AL invasion) pN1a (1 of 6 LNs positive with extracapsular extension) M0 -ER/SC positive (both >95%) HER2 non-amplified (FISH). Per Dr. Mackey's previous note: Assessment: -pT1c (1.8 cm; grade III; positive AL invasion) pN1a (1 of 6 LNs positive with extracapsular extension) M0 -ER/SC positive (both >95%) HER2 non-amplified (FISH). -PS is 0. -Randomized per protocol S1007 to adjuvant hormonal therapy. -Patient has been intolerant to adjuvant hormonal therapy including all 3 oral aromatase inhibitorsand both SERMs. Plan: -Left-sided diagnostic mammogram and ultrasound. -UA today and ultrasound kidneys. CT scan if ultrasound nonrevealing. -Refill Chantix. -Establish with primary school teacher/general practitioner. - R axillary tenderness/skin dimpling. - Pt. did not tolerate oral AI therapy. - Reviewed L mammogram with pt. - L mammogram due June 2024 - Needs R dx mamm/US soon. - Follow up pending above. - Pt. aware to call office with any questions/concerns. The patient indicates understanding of these issues and agrees with the plan. All documentation from previous visit of 03/23/23-Dr. Mackey/myself was copied and pasted, documentation has been reviewed and edited as necessary for today's visit. Alea Langston APRN.CNP documented in this encounterBlanchard Valley [facility]05-[facility] Telephone encounter Note * Telephone Encounter - Raymond Meenu Persaud - 07/05/2023 12:35 PM EDT I called and spoke to Shakira and scheduled her for a visit on Monday07/11/23 @ 9:30 am, patient confirmed this date/time Meenu Raymond Pss [facility]05-22-2024 Miscellaneous Notes* Telephone Encounter - Raymond Meenu Persaud - 07/05/2023 12:35 PM EDT I called and spoke to Shakira and scheduled her for a visit on Monday07/11/23 @ 9:30 am, patient confirmed this date/time Meenu Raymond Pss * Telephone Encounter - Alea Langston APRN.CNP - 07/05/2023 12:26 PM EDT Noted. OV when able. Alea Langston APRN.CNP * Telephone Encounter - Denia Lares - 07/03/2023 2:33 PM EDT Patient presented at [facility] as she is having symptoms and Dr. Wooten's office was supposed to contact Alea about it. Patient is having pain in her armpit, Feels like theres worms in there, can't lay on that side now, But other symptoms, numbness and tingling are moving /spreading. Please advise. Denia Lares documented in this encounterBlanchard Valley Health System [facility]05-[facility] Telephone encounter Note * Telephone Encounter - Alea Langston APRN.CNP - 07/05/2023 12:26 PM EDT Noted. OV when able. Alea aLngston APRN.PHARMACEUTICAL OFFICER [facility]05-21-2024 Note* Letter - Coordinator, Mammography - 07/04/2023 11:32 AM EDT July 04, 2023 PID: [id number] Shakira Franklin [address] [place] [address] Dear Ms. Franklin, We are pleased to inform you that the results of your recent breast imaging exam on 07/03/2023 are normal. Your mammogram demonstrates that you have dense breast tissue, which could hide abnormalities. Dense breast tissue, in and of itself, is a relatively common condition. Therefore, this information is not provided to cause undue concern; rather, it is to raise your awareness and promote discussion with your health care provider regarding the presence of dense breast tissue in addition to other riskfactors. Early detection of cancer is very important. We also understand recommendations regarding breast cancer screening are controversial. Please discuss with your primary care provider which strategy is best for you and whether a mammogram is right for you. Your imaging studies and report will be kept on file at [facility] as part of your permanent medical record and are available for your continuing care. Thank you for allowing us to help in meeting your health care needs. Sincerely, Dr. Parra Interpreting Radiologist [facility] (Normal over 40) [facility]05-21-2024 Miscellaneous Notes* Letter - Coordinator, Mammography - 07/04/2023 11:32 AM EDT July 04, 2023 PID: [id number] Shakira Franklin [address] [place] [address] Dear Ms. Franklin, We are pleased to inform you that the results of your recent breast imaging exam on 07/03/2023 are normal. Your mammogram demonstrates that you have dense breast tissue, which could hide abnormalities. Dense breast tissue, in and of itself, is a relatively common condition. Therefore, this information is not provided to cause undue concern; rather, it is to raise your awareness and promote discussion with your health care provider regarding the presence of dense breast tissue in addition to other riskfactors. Early detection of cancer is very important. We also understand recommendations regarding breast cancer screening are controversial. Please discuss with your primary care provider which strategy is best for you and whether a mammogram is right for you. Your imaging studies and report will be kept on file at [facility] as part of your permanent medical record and are available for your continuing care. Thank you for allowing us to help in meeting your health care needs. Sincerely, Dr. Parra Interpreting Radiologist [facility] (Normal over 40) documented in this encounterBlanchard Valley Health System [facility]05-[facility] Telephone encounter Note * Telephone Encounter - Denia Lares - 07/03/2023 2:33 PM EDT Patient presented at [facility] as she is having symptoms and Dr. Wooten's office was supposed to contact Alea about it. Patient is having pain in her armpit, Feels like theres worms in there, can't lay on that side now, But other symptoms, numbness and tingling are moving /spreading. Please advise. Denia Lares [facility]05-20-2024 History of Present illness Narrative* Gladys Osorio, Mammo Tech - 07/03/2023 2:10 PM EDT Radiology Service Progress Note PATIENT NAME: Shakira Franklin DATE OF SERVICE: July 03, 2023 TIME: 2:14 PM PATIENT IDENTITY VERIFICATION COMPLETED USING TWO (2) IDENTIFIERS: Name and Date of confirmedby patient verbally. FALL SCREENING: Has the patient had 2 falls in the last year or 1 fall with injury or currently using an Ambulatory Assistive Device (Walker, Cane, Wheelchair, Crutches, etc.)? No PATIENT GENDER DATA: Female. status: : No status: NO. PATIENT RELEVANT IMPLANT DATA REVIEWED: Not Applicable PATIENT PRESENTS WITH AN IMPLANTABLE OR ATTACHED WARE CLEANER: No RADIOLOGY DEPARTMENT: Mammography PERIPHERAL IV DATA: Not applicable SIGNED BY: Kory Lebrono Alexander July 03, 2023 2:14 PM documented in this encounterBlanchard Valley Health System [facility]03-[facility] History of Present illness Narrative* Cheryl Fisher, ACID TREATER.PHARMACEUTICAL OFFICER - 04/26/2023 4:25 PM EDT CC: Patient presents with: Arm Pain: RIGHT underarm tended with swelling x 1.5 month, JESSE upper leg muscle cramps & elevated blood pressure HPI Shakira Franklin is a 62 year old female who presents today for above. Right axillary pain- present for about 1.5 months, discomfort is worsening. Aggravated by pressure such as pressing her arm against her side or sleeping on the right side. Alleviated by holding arm out to the side. Tender with palpation. Feels like there may be some swelling and/or a lump. History of breast cancer with right mastectomy and lymph node removal 10 years ago. Last follow-up with oncology was about one month ago. Denies pain in the shoulder, chest wall or upper back, numbness or tingling. Pain does not increase with shoulder ROM. Has not taken anything for the pain. BP has been elevated intermittently at home since last office visit in primary care about 6 months ago. For the past couple weeks has been as high as 140's/80's. No history of hypertension. Denies: headache, chest pain, palpitations, dyspnea, and peripheral edema. Last 4 Encounter BP Readings: Date: BP: 04/26/2023 124/88 03/23/2023 127/86 09/29/2022 143/84 01/13/2022 142/88 Last 3 Encounter Wt Readings: Date: Wt: 04/26/2023 71.4 kg (157 lb 6.4 oz) 03/23/2023 70.8 kg (156 lb) 09/29/2022 71.2 kg (157 lb) Exercise: denies regular aerobic exercise. Diet: Watch for salt, fat, cholesterol: Yes . Caffeine: limited Alcohol: no Smoking: No Frequent NSAID use: No Decongestants: No Thyroid disorders: No Sleep disorders/snoring: No Chronic nocturnal leg cramps for years, now in the both thighs in addition to the calves. Very painful, hard to sleep at night. Pain was manageable with tonic water which she still drinks every evening but no longer effective. Denies swelling, skin discoloration, numbness/tingling. Review of Systems See HPI PAST MEDICAL HISTORY Diagnosis Date Abnormal uterine bleeding (AUB) 2001 Hysterectomy Breast cancer (HCC) 03/06/2017 Lump or mass in breast left breast Malignant neoplasm of right breast in female, estrogen receptor positive (HCC) 03/06/2017 Mitral valve prolapse PVC (premature ventricular contraction) Smoker Supraventricular tachycardia ([facility]) 11/23/2020 PAST SURGICAL HISTORY Procedure Laterality Date AXILLARY LYMPHADENECTOMY 07/31/2012 right axilla BREAST AUGMENTATION W/PROSTHETIC IMPLANT 1999 BREAST BIOPSY CORE 05/30/2012 right breast BREAST BIOPSY CORE 06/06/2012 right breast BREAST RECONSTRUCTION 07/19/2012 right breast single step implant CARPAL TUNNEL Bilateral wrists COLONOSCOPY FLX DX W/COLLJ SPEC WHEN PFRMD 01/01/2013 Normal colonoscopy-5 year followup - family history COLONOSCOPY FLX DX W/COLLJ SPEC WHEN PFRMD 05/08/2013 Colonoscopy EGD TRANSORAL BIOPSY SINGLE/MULTIPLE 01/01/2013 gastritis FNA UNDER GUIDANCE 06/06/2012 right breast by ultrasound INCISE FINGER TENDON SHEATH Right 09/18/2019 Right trigger thumb release LIG/TRNSXJ FLP TUBE ABDL/VAG APPR UNI/BI 1984 MASTECTOMY, SIMPLE, COMPLETE 07/19/2012 right breast with SLND PAST SURGICAL HISTORY OF oral surgery PAST SURGICAL HISTORY OF removal of pingula left eye TONSILLECTOMY HX VAGINAL HYSTERECTOMY UTERUS 250 GM/< 2001 AUB, possible abnormal pap prior to hysterectomy ALLERGIES Arimidex [Anastrozole], Aromasin [Exemestane], Tamoxifen, and Letrozole MEDICATIONS multivit-min/vit C/herb no.124 (AIRBORNE GUMMY ORAL) Take by mouth. FAMILY HISTORY Problem Relation Age of Onset Anesthesia Father Macular Degen Father other (Other) Father Colon Cancer Father 60 Skin Cancer Father Allergies Mother Heart Mother Hypertension Mother Stroke Mother Hypertension Sister Blindness Sister Lymphoma Sister Allergies Sister other (non-hodgkins lymphoma) Sister other (Jim-Rochester Syndrome) Sister Heart Attack Brother 57 other (Leukemia) Paternal Aunt Colon Cancer Paternal Uncle dx 70's other (Leukemia) Paternal Uncle Breast Cancer Other maternal aunt, in her 60's Prostate Cancer Other paternal cousin Cancer Other paternal first cousin dx lacrimal sac tumor d. 25 Cancer Other /paternal first cousin dx tumor size of cabbage on chest wall Social History Tobacco Use Smoking status: Former Packs/day: 0.50 Years: 12.00 Additional pack years: 0.00 Total pack years: 6.00 Types: Cigarettes Quit date: 08/31/2021 Years since quittin.6 Smokeless tobacco: Never Tobacco comments: relapsed 10/2020 Vaping Use Vaping Use: Never used Substance Use Topics Alcohol use: Not Currently Comment: once a month, 1 drink Drug use: Not Currently Comment: History of remote cocaine use(as young adult) BP 137/91 Pulse 65 Resp 16 Wt 71.4 kg (157 lb 6.4 oz) SpO2 97% BMI 25.91 kg/m Physical Exam Vitals reviewed. Constitutional: Appearance: Normal appearance. Cardiovascular: Rate and Rhythm: Normal rate and regular rhythm. Pulses: Normal pulses. Heart sounds: Normal heart sounds. No murmur heard. Comments: BLE- No edema or skin discoloration. Good cap refill. Skin is warm and dry. Pulmonary: Effort: Pulmonary effort is normal. Breath sounds: Normal breath sounds. No wheezing, rhonchi or rales. Chest: Comments: Right axilla- tender with palpation. no palpable lumps or obvious swelling. No skin discoloration. Lymphadenopathy: Upper Body: Right upper body: No supraclavicular adenopathy. Left upper body: No supraclavicular adenopathy. Skin: General: Skin is warm and dry. Neurological: Mental Status: She is alert. DATA REVIEWED: Most recent labs ASSESSMENT/PLAN: 1. Axillary pain, right - ICD9: 729.5, ICD10: M79.621 (primary diagnosis) No abnormalities on exam other than tenderness. Pain may be due to scar tissue from surgeries. [facility] oncologist for recommendations. 2. Leg cramps - ICD9: 729.82, ICD10: R25.2 Differentials include neuropathy, electrolyte imbalance, anemia Check labs: - COMP METABOLIC PANEL - CBC - MAGNESIUM BLD Further recommendations pending results 3. Elevated blood pressure reading - ICD9: 796.2, ICD10: R03.0 Likely PreHypertension - Encouraged dietary sodium restriction/DASH diet - Recommended regular aerobic exercise. - Recommend home blood pressure monitoring, to bring results in on next visit - Recheck in 3 months, sooner if needed. - Goal of BP <130/80 4. Colon cancer screening - ICD9: V76.51, ICD10: Z12.11 - COLOGUARD Prescription instructions reviewed with patient as applicable. Potential red flag symptoms discussed with the patient. Reviewed appropriate action plan to take if red flag symptoms occur. Patient agreeable to treatment plan. Cheryl Fisher APRN.PHARMACEUTICAL OFFICER documented in this encounterBlanchard Valley [facility] Miscellaneous Notes* Telephone Encounter - Liudmila Segura - 03/23/2023 12:33 PM EST Check out comments: - L mammogram as scheduled. - Needs OV with Dr. Sanz's MARINE FITTER. - Follow up in one year. - Pt. aware to call office with any questions/concerns. Patient refused scheduling 1 yr ov. Recall letter entered. Patient states she will contact PCP office for scheduling. documented in this encounterBlanchard Valley [facility]02-[facility] History of Present illness Narrative* Alea Langston APRN.PHARMACEUTICAL OFFICER - 03/23/2023 11:28 AM EST Chief Complaint Patient presents with: Established Patient: yearly ov HPI: Shakira Franklin is a 62 year old female who presents here today for follow up breast cancer. Per Dr. Mackey's previous note: H/o pt. appreciated a mass in her right breast in 11/2011. She thought it may have been a cyst as she had one in the past. Her mother had been on hospice at the time for end stage CHF/Alzheimer's disease. She sought care when thought it was enlarging in April 2012. Was seen by a senior sales manager who ordered a mammogram with ultrasound. The studies completed May 22, 2012 demonstrated a 1 x 1 x 1.3 cmhypoechoic irregular mass at the 11:00 position of the right breast in the retroareolar region on ultrasound which corresponded to an abnormality on bilateral diagnostic mammogram. Was referred to Dr. Ayala who performed a US guided biopsy 05/30/12. Pathology significant for an invasive ductal carcinoma, nuclear grade 2, with micropapillary features (see comment). - Lymphovascular invasion is identified. ER/SC both >95% and HER2(ERBB2) gene amplification is absent; the average copy number is 3.4. The HER2(ERBB2)/Chromosome 17 ratio is 1.4 (reference range is 0.8 - 1.7). Because patient had previous breast augmentation, was referred to Dr. Whitaker and Shauna. Underwent right skin-sparing mastectomy and sentinel node biopsy and immediate replacement of implant 07/19/12. Pathology: 1. Right sentinel lymph node #1, biopsy (A) - Metastatic carcinoma involving one lymph node (1/1); metastasis measures 0.6 cm in greatest dimension; with focal extranodal extension identified. 2. Right sentinel lymph node #2, biopsy (B) - One lymph node, negative for malignancy (0/1). 3. Right breast, skin-sparing mastectomy (C) - Invasive ductal carcinoma, Bartlett-Damico grade III (see comment). - Ductal carcinoma in situ, high nuclear grade, solid type with comedo necrosis and microcalcifications. - Atypical ductal hyperplasia. - Fibrocystic change including stromal fibrosis. - Biopsy site reparative changes and biopsy clips x3. 4. Right breast, implant, removal (D) - Breast implant (gross examination only). EDK/johnie/07/20/2012 COMMENT Specimen Laterality: Right Procedure: Type: Skin-sparing mastectomy Wire localization: Not applicable Lymph Node Sampling: [place] lymph nodes Tumor Size: (Size of Largest Invasive Carcinoma) Greatest dimension of largest focus of invasion over 0.1 cm: 1.8 cm Tumor Focality: Single focus of invasive carcinoma Extent of Tumor: Skin: Negative for neoplasm. Nipple: Negative for neoplasm Chest wall: No skeletal muscle is present in the specimen Margins: Invasive carcinoma: Negative Closest margin: Invasive carcinoma is present 0.9 cm from the deep margin of resection DCIS: Negative Closest margin: Ductal carcinoma in situ is present 1 cm from the deep margin of resection Histologic Type of Invasive Carcinoma: Ductal Histologic Grade: Glandular (Acinar)/Tubular Differentiation: 3 Nuclear Grade: 3 Mitotic Rate: 2 Overall Bartlett Damico Grade: III Lymph-Vascular Invasion: Present Ductal Carcinoma In Situ (DCIS): DCIS is present Type: Solid Nuclear Grade: 3 Necrosis: Comedo type Lymph Nodes: (required only if lymph nodes are present in the specimen) Number of sentinel lymph nodes examined: 2 Total number of lymph nodes examined (sentinel and nonsentinel): 2 Number of lymph nodes with macrometastases (>0.2 cm): 1 Number of lymph nodes with micrometastases (>0.2 mm to 0.2 cm and/or >200cells): 0 Number of lymph nodes with isolated tumor cells (less than or equal to 0.2 mm and less than or equal to 200 cells): 0 Number of lymph nodes without tumor cells identified: 1 Size of largest metastatic deposit (if present): 0.6 cm Extranodal Invasion: Present Amount: 0.8 mm Apparently initial specimens were negative for lara involvement (specimen improperly collected in OR), but final path showed tumor presence. So underwent subsequent ALND 07/31/12--Right axillary contents, axillary dissection (A) - Four lymphnodes, negative for metastatic carcinoma (0/4); AJCC stage pN0 Enrolled in S1007. Recurrence sore of 12 (8% average rate of distant recurrence). Randomized to AI therapy. Started exemestane 10/23/12. Couldn't get financial assistance for anastrozole. Underwent evaluation for diarrhea that started soon after beginning exemestane. Repeat colonoscopy with histologic evidence lymphocytic colitis. Patient however continued exemestane as it wasn't clear that it caused the lymphocytic colitis. Self d/c'ed exemestane in May 2013. Diarrhea significantly slowed and she had a two week period of formed stool with BM daily in am. Started Aromasin again and diarrhea started again. Stopped Aromasin after 9 days. Previous therapy: 1) Exemestane 10/2012-05/2013. Stopped due to diarrhea. 2) Letrozole 08/2013-08/2014. Stopped due to angioedema of the lips. 3) Tamoxifen. 09/2014-01/2015. Stopped due to recurrent angioedema. 4) Anastrozole. 5) Raloxifene started 06/2015. Stopped due to diarrhea. Current therapy: 1) None. Recent +covid. Recovered at home. No new concerns today. Appetite:Good. Wt. up Energy level:No energy. Working FT. Denies fevers after covid. Resp:denies cough or sob, quit smoking summer 2021 Cardiac:denies chest pain/occ. palpitations-chronic/stable GI:denies abd pain, occ. R sided pain, denies n/v, moving bowels regularly-last colonoscopy 2013 :denies dysuria/hematuria Extrem:denies pain Endo:denies hot flashes Neuro:denies symptoms of neuropathy Skin:denies rashes/lesions Heme:denies bleeding The ROS is otherwise negative. Past medical history, appointments, medications, allergies reviewed. No changes. EXAM: BP 127/86 Pulse 71 Temp 36.8 C (98.2 F) Resp 12 Ht 166 cm (5' 5.35) Wt 70.8 kg (156 lb) SpO2 96% BMI 25.68 kg/m APPEARANCE Well appearing, alert, in no acute distress, well-hydrated, well nourished. HEART RRR with normal S1 and S2, no murmurs LUNG clear to auscultation BREAST FEMALE R skin sparing mastectomy/implant no surrounding mass/nodule, L implant no surrounding mass/nodule LYMPH NODES No cervical lymphadenopathy, No supraclavicular lymphadenopathy, and No axillary lymphadenopathy. ABDOMEN bowel sounds normoactive, soft, non-tender EXTREMITIES No edema NEURO Awake, alert and oriented x 3, Normal gait, and No involuntary motions. SKIN Skin color, texture, turgor normal, no suspicious rashes or lesions ASSESSMENT/PLAN: 1. Personal history of breast cancer - ICD9: V10.3, ICD10: Z85.3 pT1c (1.8 cm; grade III; positive AL invasion) pN1a (1 of 6 LNs positive with extracapsular extension) M0 -ER/SC positive (both >95%) HER2 non-amplified (FISH). Per Dr. Mackey's previous note: Assessment: -pT1c (1.8 cm; grade III; positive AL invasion) pN1a (1 of 6 LNs positive with extracapsular extension) M0 -ER/SC positive (both >95%) HER2 non-amplified (FISH). -PS is 0. -Randomized per protocol S1007 to adjuvant hormonal therapy. -Patient has been intolerant to adjuvant hormonal therapy including all 3 oral aromatase inhibitorsand both SERMs. Plan: -Left-sided diagnostic mammogram and ultrasound. -UA today and ultrasound kidneys. CT scan if ultrasound nonrevealing. -Refill Chantix. -Establish with primary school teacher/general practitioner. - No concerning findings on exam. - Pt. did not tolerate oral AI therapy. - Reviewed L mammogram/L dx mamm/US with pt. - L mammogram as scheduled. - Needs OV with Dr. Sanz's MARINE FITTER. - Follow up in one year. - Pt. aware to call office with any questions/concerns. The patient indicates understanding of these issues and agrees with the plan. All documentation from previous visit of 01/13/22-Dr. Mackey/myself was copied and pasted, documentation has been reviewed and edited as necessary for today's visit. Alea Langston APRN.VALERIA documented in this encounterBlanchard Valley [facility]08-21-2023 History of Present illness Narrative* Misty Cedeno RDMS - 10/03/2022 1:00 PM EDT Radiology Service Progress Note PATIENT NAME: Shakira Franklin DATE OF SERVICE: October 03, 2022 TIME: 1:33 PM PATIENT IDENTITY VERIFICATION COMPLETED USING TWO (2) IDENTIFIERS: Name and Date of confirmedby patient verbally. FALL SCREENING: Has the patient had 2 falls in the last year or 1 fall with injury or currently using an Ambulatory Assistive Device (Walker, Cane, Wheelchair, Crutches, etc.)? No PATIENT GENDER DATA: Female. status: : No status: NO. PATIENT RELEVANT IMPLANT DATA REVIEWED: Not Applicable RADIOLOGY DEPARTMENT: Ultrasound PERIPHERAL IV DATA: Not applicable SIGNED BY: Misty Cedeno RDMS October 03, 2022 1:33 PM documented in this encounterBlanchard Valley [facility]08-21-2023 Miscellaneous Notes* Telephone Encounter - Rut Rowan RDMS - 10/03/2022 11:35 AM EDT Good morning, I need an US FEMALE PELVIS TRANSVAG order or an US FEMALE PELV TRANSABD COMPLETE order placed SUZANNE,this pt is scheduled at 1:00 today. The original order placed is for a limited transabd only pelvicultrasound. Other orders are better for diagnosis. I also sent a staff message and got no response. Thanks, Rut Pryor [facility] documented in this encounterBlanchard Valley Health [facility]08-17-2023 History of Present illness Narrative* Christiano Wooten MD - 09/29/2022 4:07 PM EDT This note was created using [employer]. Subjective Patient presents with: UTI Shakira Franklin is a 61 year old female here with urinary changes noted for 2 or more months. She noted slowed urination, bubbly urine, incomplete emptying, some nocturia for 2 months, infrequent dysuria. She was drinking fluids but this made symptoms worse. Review of Systems Constitutional: Negative for appetite change, chills, diaphoresis, fever and unexpected weight change. Respiratory: Negative for shortness of breath. Cardiovascular: Negative. Gastrointestinal: Negative for abdominal distention, abdominal pain, blood in stool, constipation, diarrhea, nausea and vomiting. Genitourinary: Positive for decreased urine volume, difficulty urinating and dysuria. Negative for dyspareunia, flank pain, frequency, genital sores, hematuria, pelvic pain, urgency, vaginal bleeding, vaginal discharge and vaginal pain. Musculoskeletal: Negative for back pain. ACTIVE PROBLEM LIST Examination of Participant in Clinical Trial Senile Nuclear Cataract Malignant Neoplasm of Right Breast in Female, Estrogen Receptor Positive (Hcc) Tobacco Use Disorder Pharyngeal Dysphagia Cough Supraventricular Tachycardia (Hcc) Social History Tobacco Use Smoking status: Former Packs/day: 0.50 Years: 12.00 Additional pack years: 0.00 Total pack years: 6.00 Types: Cigarettes Quit date: 08/31/2021 Years since quittin.0 Smokeless tobacco: Never Tobacco comments: relapsed 10/2020 Vaping Use Vaping Use: Never used Substance Use Topics Alcohol use: Not Currently Comment: once a month, 1 drink Drug use: Not Currently Comment: History of remote cocaine use(as young adult) Current Outpatient Medications Medication Sig multivit-min/vit C/herb no.124 (AIRBORNE GUMMY ORAL) Take by mouth. No current facility-administered medications for this visit. Objective BP 143/84 (BP Site: Left Arm, BP Position: Sitting, BP Cuff Size: Large Adult) Pulse 63 Resp 16 Wt 71.2 kg (157 lb) BMI 25.08 kg/m Physical Exam Constitutional: General: She is not in acute distress. Appearance: She is not ill-appearing or diaphoretic. HENT: Head: Normocephalic. Eyes: Conjunctiva/sclera: Conjunctivae normal. Cardiovascular: Heart sounds: Normal heart sounds. Pulmonary: Breath sounds: Normal breath sounds. Abdominal: General: Bowel sounds are normal. There is no distension. Palpations: Abdomen is soft. There is no mass. Tenderness: There is abdominal tenderness in the suprapubic area. There is no right CVA tenderness,left CVA tenderness, guarding or rebound. Neurological: Mental Status: She is alert. Assessment and Plan 1. Urinary hesitancy - ICD9: 788.64, ICD10: R39.11 (primary diagnosis) - CBC - COMP METABOLIC PANEL - URINALYSIS, WITH MICROSCOPIC - CONSULT TO GYNECOLOGY - US FEMALE PELVIS TRANSABD LTD 2. Pelvic pain in female - ICD9: 625.9, ICD10: R10.2 - CBC - COMP METABOLIC PANEL - URINALYSIS, WITH MICROSCOPIC - CONSULT TO GYNECOLOGY - US FEMALE PELVIS TRANSABD LTD 3. Screening for lipid disorders - ICD9: V77.91, ICD10: Z13.220 - LIPID PANEL, NONFASTING 4. Encounter for screening mammogram for malignant neoplasm of breast - ICD9: V76.12, ICD10: Z12.31 - JANE SCREENING W QUINTON 5. Elevated blood pressure reading - ICD9: 796.2, ICD10: R03.0 - Encouraged dietary sodium restriction/DASH diet - Recommended regular aerobic exercise. - Discussed need and benefit for weight loss. - Goal of BP <130/80 Christiano Wooten MD documented in this encounterMargaret Ville [id number] History of Present illness Narrative* Rut Rowan RDMS - 06/28/2022 8:30 AM EDT Radiology Service Progress Note PATIENT NAME: Shakira Franklin DATE OF SERVICE: June 28, 2022 TIME: 9:45 AM PATIENT IDENTITY VERIFICATION COMPLETED USING TWO (2) IDENTIFIERS: Name and Date of confirmedby patient verbally. FALL SCREENING: Has the patient had 2 falls in the last year or 1 fall with injury or currently using an Ambulatory Assistive Device (Walker, Cane, Wheelchair, Crutches, etc.)? No PATIENT GENDER DATA: Female. status: : No status: NO. PATIENT RELEVANT IMPLANT DATA REVIEWED: Not Applicable RADIOLOGY DEPARTMENT: Ultrasound PERIPHERAL IV DATA: Not applicable SIGNED BY: Rut Rowan RDMS T June 28, 2022 9:45 AM documented in this encounterBlanchard Valley Health System [facility]05-16-2023 History of Present illness Narrative* Savannah Montalvo RT(R) - 06/28/2022 8:00 AM EDT Radiology Service Progress Note PATIENT NAME: Shakira Franklin DATE OF SERVICE: June 28, 2022 TIME: 8:27 AM PATIENT IDENTITY VERIFICATION COMPLETED USING TWO (2) IDENTIFIERS: Name and Date of confirmedby patient verbally. FALL SCREENING: Has the patient had 2 falls in the last year or 1 fall with injury or currently using an Ambulatory Assistive Device (Walker, Cane, Wheelchair, Crutches, etc.)? No PATIENT GENDER DATA: Female. status: : No status: NO. PATIENT RELEVANT IMPLANT DATA REVIEWED: Yes RADIOLOGY DEPARTMENT: Mammography PERIPHERAL IV DATA: Not applicable SIGNED BY: RT Katie(R) June 28, 2022 8:27 AM documented in this encounterBlanchard Valley Health [facility]04-17-2023 Miscellaneous Notes* Telephone Encounter - Radha Hubbard RN - 05/30/2022 8:05 AM EDT Triage protocol recommended: Call 911 NOW. Patient declining x2 to allow this nurse to call 911 forher. States she will alert one of the [employer] workers to assist her or she will get someone to take her to [facility] ER now. Advised patient not to drive herself and she verbalized understanding. Reason for Disposition [1] Chest pain lasts > 5 minutes AND [2] age > 44 Answer Assessment - Initial Assessment Questions Patient calling from [employer]-states she is not feeling herself. Complaining of: -moderate to severe chest tightness -feels she is in heart arhythmia -lightheaded now -does not feel right -mild SOB -states has quickly gained a lot of weight recently -reports she has kidney issues and has been a bad patient 1. LOCATION: tightness across chest, denies back pain 2. RADIATION: denies any radiating pain 3. ONSET: on and off x 1 week, worse now 4. PATTERN : comes and goes-constant this morning 5. DURATION: days 6. SEVERITY: severe 7. CARDIAC RISK FACTORS: see history 8. PULMONARY RISK FACTORS: see history 9. CAUSE: Patient thinks she is in heart arhythmia 10. OTHER SYMPTOMS: -as stated above DENIES: radiating pain, numbness, tingling, cough 11. : no Protocols used: Chest [id number] documented in this encounterBlanchard Valley Health System [facility]12-02-2022 History of Present illness Narrative* Francie Melissa RN - 01/14/2022 10:52 AM EST SWOG [id number] Phase III, Randomized Clinical Trial of Standard Adjuvant Endocrine Therapy +/- Chemotherapy in Patients with 1-3 Positive Nodes, Hormone Receptor-Positive and HER2-Negative Breast Cancer with Recurrence Score (RS) of 25 or Less. RxPONDER: A Clinical Trial Rx for Positive Node, Endocrine Responsive Breast Cancer Consented:08/20/2012 Randomized: 09/12/2012 Pt ID: [id number] Time Point: Annual OV and Mammogram results - Delayed visit due to extra testing Patient seen today for first time by this RN. Patients questions and concerns answered. Patient will continue to follow-up annually for trial based requirements. Vitals: 01/13/2022 Weight 63.3 kg (139 lb 8 oz) Height 168.5 cm (5' 6.34) BSA 1.72 BMI 22.29 Temp 35.8 C (96.5 F) Pulse 63 BP 142/88 Current Outpatient Medications Medication Sig Start/Stop Use omeprazole (PRILOSEC) 20 mg capsule Take 1 capsule by mouth daily before breakfast. Start:09/22/2021cid Reflux albuterol HFA (PROVENTIL HFA, VENTOLIN HFA) 90 mcg/actuation inhaler Inhale 2 Puffs as instructed every 6 hours as needed for wheezing/shortness of breath. Start: 08/25/2021 Inhaler varenicline (CHANTIX STARTING MONTH BOX) 0.5 mg (11)- 1 mg (42) tablet Take 0.5 mg by mouth once daily on Days 1 through 3, THEN 0.5 mg twice daily on Days 4 through 7, THEN 1 mg twice daily on Day 8and thereafter Start:05/31/2021 Smoking Cession varenicline (CHANTIX CONTINUING MONTH BOX) 1 mg tablet Take 1 tablet by mouth twice daily. Start:05/31/2021 Smoking Cession multivit-min/vit C/herb no.124 (AIRBORNE GUMMY ORAL) Take by mouth. Supplement fluocinonide (LIDEX) 0.05 % cream Apply to affected area twice daily as needed (for areas of rash, limit to not more than 2 weeks use at a time.). Start:09/16/2020 PRN Toxicities: CTCAE V. Five None at this time Patient to return around September for Mammogram - scheduled required in June for 6 month follow-up will follow this time-point.Otherwise, patient will be seen annually in October of 2022 for Research.Patient's questions answered. Patient will call in the interim with questions or concerns. Patient given my business card. TRESA Joshua, RN Clinical Research Nurse [phone] documented in this encounterBlanch[facility] History of Present illness Narrative* Alea Langston, CHAS.PHARMACEUTICAL OFFICER - 01/13/2022 11:25 AM EST Chief Complaint Patient presents with: Established Patient HPI: Shakira Franklin is a 61 year old female who presents here today for follow up breast cancer. Per Dr. Mackey's previous note: H/o pt. appreciated a mass in her right breast in 11/2011. She thought it may have been a cyst as she had one in the past. Her mother had been on hospice at the time for end stage CHF/Alzheimer's disease. She sought care when thought it was enlarging in April 2012. Was seen by a senior sales manager who ordered a mammogram with ultrasound. The studies completed May 22, 2012 demonstrated a 1 x 1 x 1.3 cmhypoechoic irregular mass at the 11:00 position of the right breast in the retroareolar region on ultrasound which corresponded to an abnormality on bilateral diagnostic mammogram. Was referred to Dr. Ayaal who performed a US guided biopsy 05/30/12. Pathology significant for an invasive ductal carcinoma, nuclear grade 2, with micropapillary features (see comment). - Lymphovascular invasion is identified. ER/SC both >95% and HER2(ERBB2) gene amplification is absent; the average copy number is 3.4. The HER2(ERBB2)/Chromosome 17 ratio is 1.4 (reference range is 0.8 - 1.7). Because patient had previous breast augmentation, was referred to Dr. Whitaker and Shauna. Underwent right skin-sparing mastectomy and sentinel node biopsy and immediate replacement of implant 07/19/12. Pathology: 1. Right sentinel lymph node #1, biopsy (A) - Metastatic carcinoma involving one lymph node (1/); metastasis measures 0.6 cm in greatest dimension; with focal extranodal extension identified. 2. Right sentinel lymph node #2, biopsy (B) - One lymph node, negative for malignancy (0/). 3. Right breast, skin-sparing mastectomy (C) - Invasive ductal carcinoma, Bartlett-Damico grade III (see comment). - Ductal carcinoma in situ, high nuclear grade, solid type with comedo necrosis and microcalcifications. - Atypical ductal hyperplasia. - Fibrocystic change including stromal fibrosis. - Biopsy site reparative changes and biopsy clips x3. 4. Right breast, implant, removal (D) - Breast implant (gross examination only). EDK/johnie/07/20/2012 COMMENT Specimen Laterality: Right Procedure: Type: Skin-sparing mastectomy Wire localization: Not applicable Lymph Node Sampling: [place] lymph nodes Tumor Size: (Size of Largest Invasive Carcinoma) Greatest dimension of largest focus of invasion over 0.1 cm: 1.8 cm Tumor Focality: Single focus of invasive carcinoma Extent of Tumor: Skin: Negative for neoplasm. Nipple: Negative for neoplasm Chest wall: No skeletal muscle is present in the specimen Margins: Invasive carcinoma: Negative Closest margin: Invasive carcinoma is present 0.9 cm from the deep margin of resection DCIS: Negative Closest margin: Ductal carcinoma in situ is present 1 cm from the deep margin of resection Histologic Type of Invasive Carcinoma: Ductal Histologic Grade: Glandular (Acinar)/Tubular Differentiation: 3 Nuclear Grade: 3 Mitotic Rate: 2 Overall Bartlett Damico Grade: III Lymph-Vascular Invasion: Present Ductal Carcinoma In Situ (DCIS): DCIS is present Type: Solid Nuclear Grade: 3 Necrosis: Comedo type Lymph Nodes: (required only if lymph nodes are present in the specimen) Number of sentinel lymph nodes examined: 2 Total number of lymph nodes examined (sentinel and nonsentinel): 2 Number of lymph nodes with macrometastases (>0.2 cm): 1 Number of lymph nodes with micrometastases (>0.2 mm to 0.2 cm and/or >200cells): 0 Number of lymph nodes with isolated tumor cells (less than or equal to 0.2 mm and less than or equal to 200 cells): 0 Number of lymph nodes without tumor cells identified: 1 Size of largest metastatic deposit (if present): 0.6 cm Extranodal Invasion: Present Amount: 0.8 mm Apparently initial specimens were negative for lara involvement (specimen improperly collected in OR), but final path showed tumor presence. So underwent subsequent ALND 07/31/12--Right axillary contents, axillary dissection (A) - Four lymphnodes, negative for metastatic carcinoma (0/4); AJCC stage pN0 Enrolled in S1007. Recurrence sore of 12 (8% average rate of distant recurrence). Randomized to AI therapy. Started exemestane 10/23/12. Couldn't get financial assistance for anastrozole. Underwent evaluation for diarrhea that started soon after beginning exemestane. Repeat colonoscopy with histologic evidence lymphocytic colitis. Patient however continued exemestane as it wasn't clear that it caused the lymphocytic colitis. Self d/c'ed exemestane in May 2013. Diarrhea significantly slowed and she had a two week period of formed stool with BM daily in am. Started Aromasin again and diarrhea started again. Stopped Aromasin after 9 days. Previous therapy: 1) Exemestane 10/2012-05/2013. Stopped due to diarrhea. 2) Letrozole 08/2013-08/2014. Stopped due to angioedema of the lips. 3) Tamoxifen. 09/2014-01/2015. Stopped due to recurrent angioedema. 4) Anastrozole. 5) Raloxifene started 06/2015. Stopped due to diarrhea. Current therapy: 1) None. Pt. quit smoking this past summer. Appetite:Normal. Energy level:Still no energy. Working FT. Denies fevers or recent illness. Resp:denies cough or sob, quit smoking summer 2021 Cardiac:denies chest pain/occ. palpitations-stable GI:denies abd pain, n/v, moving bowels regularly :denies dysuria/hematuria Extrem:L clavicle pain-denies injury Endo:hot flashes every now and then. improved Neuro:denies symptoms of neuropathy Skin:denies rashes/lesions Heme:denies bleeding The ROS is otherwise negative. Past medical history, appointments, medications, allergies reviewed. No changes. EXAM: BP 142/88 Pulse 63 Temp (!) 35.8 C (96.5 F) (Temporal) Ht 168.5 cm (5' 6.34) Wt 63.3 kg (139 lb 8 oz) SpO2 99% BMI 22.29 kg/m APPEARANCE Well appearing, alert, in no acute distress, well-hydrated, well nourished. HEART RRR with normal S1 and S2, no murmurs LUNG clear to auscultation BREAST FEMALE R skin sparing mastectomy/implant no surrounding mass/nodule, L implant no surrounding mass/nodule LYMPH NODES No cervical lymphadenopathy, No supraclavicular lymphadenopathy, and No axillary lymphadenopathy. ABDOMEN bowel sounds normoactive, soft, non-tender EXTREMITIES No edema NEURO Awake, alert and oriented x 3, Normal gait, and No involuntary motions. SKIN Skin color, texture, turgor normal, no suspicious rashes or lesions RADIOLOGY: L mammogram 11/19/21: IMPRESSION: INCOMPLETE: NEEDS ADDITIONAL IMAGING EVALUATION The asymmetry in the left breast is indeterminate. Additional views are recommended. L dx mammogram 12/29/21: IMPRESSION: INCOMPLETE: NEEDS ADDITIONAL IMAGING EVALUATION The oval nodule in the left breast resembles an intramammary node and is indeterminate. An ultrasound is recommended. L breast US 12/29/21: IMPRESSION: PROBABLY BENIGN - SHORT TERM INTERVAL FOLLOW-UP RECOMMENDED The 0.7 cm x 0.5 cm x 0.3 cm oval nodule in the left breast most likely is a lymph node and is probably benign. Follow-up mammogram and ultrasound in 6 months is recommended. ASSESSMENT/PLAN: 1. Personal history of breast cancer - ICD9: V10.3, ICD10: Z85.3 pT1c (1.8 cm; grade III; positive AL invasion) pN1a (1 of 6 LNs positive with extracapsular extension) M0 -ER/SC positive (both >95%) HER2 non-amplified (FISH). Per Dr. Maceky's previous note: Assessment: -pT1c (1.8 cm; grade III; positive AL invasion) pN1a (1 of 6 LNs positive with extracapsular extension) M0 -ER/SC positive (both >95%) HER2 non-amplified (FISH). -PS is 0. -Randomized per protocol S1007 to adjuvant hormonal therapy. -Patient has been intolerant to adjuvant hormonal therapy including all 3 oral aromatase inhibitorsand both SERMs. Plan: -Left-sided diagnostic mammogram and ultrasound. -UA today and ultrasound kidneys. CT scan if ultrasound nonrevealing. -Refill Chantix. -Establish with primary school teacher/general practitioner. - New L clavicle pain. - Pt. did not tolerate oral AI therapy. - Reviewed L mammogram/L dx mamm/US with pt. - L dx mamm/US as scheduled. - Xray L clavicle. - Follow up in one year-pending L dx mammogram/L clavicle xray. - Pt. aware to call office with any questions/concerns. The patient indicates understanding of these issues and agrees with the plan. All documentation from previous visit of 11/09/20-Dr. Mackey/myself was copied and pasted, documentation has been reviewed and edited as necessary for today's visit. Alea Langston APRN.PHARMACEUTICAL OFFICER documented in this encounterBlanchard Valley [facility]11[facility]30[facility] Miscellaneous Notes* Telephone Encounter - Denia Lares - 01/12/2022 10:47 AM EST Spoke with patient and scheduled. Denia Lares * Telephone Encounter - Diane Dowling LPN - 01/10/2022 5:04 PM EST When patient calls, please schedule an est simple with Alea. Once scheduled, document and route this note to P TR HEM/ONC PSR for further documentation. Diane Dowling LPN * Telephone Encounter - Paz Boykin - 01/08/2022 12:20 PM EST What visit type is best for this? Is this done in Hem/Onc or with the pt's pcp, or OBGYN and then afollow up in our office? Please advise. Thank you! * Telephone Encounter - Denia Lares - 01/05/2022 10:55 AM EST Per Reseach Nurse: Can we please schedule this patient for an annual OV with Physical exam and breast exam for clinical trial S1007 - Patient is to have an annual visit until 2027 if she ask. Thank you very much! LM for patient to return call. When patient calls, please schedule an est simple with Dr. Mackey/Delilah/Alea. Once scheduled, document and route this note to P TR HEM/ONC PSR for further documentation. Denia Lares documented in this encounterBlanchard Valley [facility]11-16-[facility] Miscellaneous Notes* Letter - Mammography Coordinator - 12/29/2021 9:27 AM EST December 29, 2021 PID: [id number] Shakira Franklin [address] [place] [address] Dear Ms. Franklin, Your recent breast imaging examination performed on 12/29/2021 showed an area that we believe is probably benign (not cancer). Please call [phone] to make an appointment for these tests if you have not already done so. You must have an order/prescription from your physician when calling to schedule your appointment. If your order/prescription is not electronic, you must bring the hard copy with you on the day of your exam to avoid delays. Your mammogram demonstrates that you have dense breast tissue, which could hide abnormalities. Dense breast tissue, in and of itself, is a relatively common condition. Therefore, this information is not provided to cause undue concern; rather, it is to raise your awareness and promote discussion with your health care provider regarding the presence of dense breast tissue in addition to other riskfactors. Early detection of cancer is very important. We also understand recommendations regarding breast cancer screening are controversial. Please discuss with your primary care provider which strategy is best for you and whether a mammogram is right for you. Your imaging studies and report will be kept on file at [facility] as part of your permanent medical record and are available for your continuing care. Thank you for allowing us to help in meeting your health care needs. Sincerely, Dr. Oglesby Interpreting Radiologist [facility] (# mo Follow-up) * Letter - Mammography Coordinator - 12/29/2021 9:27 AM EST December 29, 2021 PID: [id number] Shakira Franklin [address] [place] [address] Dear Ms. Franklin, Your recent breast imaging examination performed on 12/29/2021 showed an area that we believe is probably benign (not cancer). Please call [phone] to make an appointment for these tests if you have not already done so. You must have an order/prescription from your physician when calling to schedule your appointment. If your order/prescription is not electronic, you must bring the hard copy with you on the day of your exam to avoid delays. Your mammogram demonstrates that you have dense breast tissue, which could hide abnormalities. Dense breast tissue, in and of itself, is a relatively common condition. Therefore, this information is not provided to cause undue concern; rather, it is to raise your awareness and promote discussion with your health care provider regarding the presence of dense breast tissue in addition to other riskfactors. Early detection of cancer is very important. We also understand recommendations regarding breast cancer screening are controversial. Please discuss with your primary care provider which strategy is best for you and whether a mammogram is right for you. Your imaging studies and report will be kept on file at [facility] as part of your permanent medical record and are available for your continuing care. Thank you for allowing us to help in meeting your health care needs. Sincerely, Dr. Oglesby Interpreting Radiologist [facility] (# mo Follow-up) documented in this encounterBlanchard Valley Health System [facility]11-16-2022 History of Present illness Narrative* Savannah Montalvo RT(R) - 12/29/2021 8:00 AM EST Radiology Service Progress Note PATIENT NAME: Shakira Franklin DATE OF SERVICE: December 29, 2021 TIME: 8:00 AM PATIENT IDENTITY VERIFICATION COMPLETED USING TWO (2) IDENTIFIERS: Name and Date of confirmedby patient verbally. FALL SCREENING: Has the patient had 2 falls in the last year or 1 fall with injury or currently using an Ambulatory Assistive Device (Walker, Cane, Wheelchair, Crutches, etc.)? No PATIENT GENDER DATA: Female. status: : No status: NO. PATIENT RELEVANT IMPLANT DATA REVIEWED: Not Applicable RADIOLOGY DEPARTMENT: Mammography PERIPHERAL IV DATA: Not applicable SIGNED BY: RT Katie(Madonna) December 29, 2021 8:00 AM documented in this encounterBlanchard Valley Health [facility]10-11-2022 Instructions* Patient Instructions* Ryan Avalos II, OD - 11/23/2021 5:39 PM EDT Assessment and Plan H52.03 Hyperopia, bilateral (primary encounter diagnosis) H52.4 Presbyopia Comment: Good comfort and near vision with Dailies Total 1 MF's however distance is blurred. Will order in trial of My Day MF's to try. I have confirmed and edited as necessary the relevant ophthalmic history, ROS, and the neuro exam findings as obtained by others. I have seen and examined Shakiratruong Franklin. I have discussed the case and the management of this patient's care with the Resident/Fellow, if applicable. I also have reviewed and agree with the assessment and plan as stated above and agree withall of its relevant components. Ryan Avalos II, OD documented in this encounterBlanchard Valley Health [facility]10-[facility] History of Present illness Narrative* Ryan Avalos II, OD - 11/23/2021 5:36 PM EDT Assessment and Plan H52.03 Hyperopia, bilateral (primary encounter diagnosis) H52.4 Presbyopia Comment: Good comfort and near vision with Dailies Total 1 MF's however distance is blurred. Will order in trial of My Day MF's to try. I have confirmed and edited as necessary the relevant ophthalmic history, ROS, and the neuro exam findings as obtained by others. I have seen and examined Shakira Franklin. I have discussed the case and the management of this patient's care with the Resident/Fellow, if applicable. I also have reviewed and agree with the assessment and plan as stated above and agree withall of its relevant components. Ryan Avalos II, OD documented in this encounterBlanchard Valley [facility]10-10-2022 Miscellaneous Notes* Letter - Mammography Coordinator - 11/22/2021 11:07 AM EDT November 22, 2021 PID: [id number] Shakira Mcleod Noemi [address] [place] [address] Dear Ms. Franklin, Your recent breast imaging exam on 11/19/2021 showed a possible finding that requires additional imaging studies for a complete evaluation. Most such findings are probably benign (not cancer). Your mammogram demonstrates that you have dense breast tissue, which could hide abnormalities. Dense breast tissue, in and of itself, is a relatively common condition. Therefore, this information is not provided to cause undue concern; rather, it is to raise your awareness and promote discussion with your health care provider regarding the presence of dense breast tissue in addition to other riskfactors. If you have a healthcare provider who ordered/prescribed your screening mammogram: Please call [phone] or [phone]: [phone] to schedule an appointment for your additional imaging (if youhave not already done so). If you DO NOT have a healthcare provider (ie you did not have an order/prescription for your screening mammogram): Please call to schedule an appointment for your additional imaging (if you have not already done so). You must have an order/prescription from your physician when calling to schedule your appointment. If your order/prescription is not electronic, you must bring the hard copy with you on the day of your exam to avoid delays. Your imaging studies and reports are kept on file at [facility] as part of your permanent medical record, and are available for your continuing care. Thank you for allowing us to help in meeting your health care needs. Sincerely, Dr. Thornton Interpreting Radiologist [facility] (Additional imaging) documented in this encounterBlanchard Valley Health System [facility]10-07-2022 History of Present illness Narrative* Savannah Montalvo, RT(R) - 11/19/2021 2:30 PM EDT Radiology Service Progress Note PATIENT NAME: Shakira Franklin DATE OF SERVICE: November 19, 2021 TIME: 2:26 PM PATIENT IDENTITY VERIFICATION COMPLETED USING TWO (2) IDENTIFIERS: Name and Date of confirmedby patient verbally. FALL SCREENING: Has the patient had 2 falls in the last year or 1 fall with injury or currently using an Ambulatory Assistive Device (Walker, Cane, Wheelchair, Crutches, etc.)? No PATIENT GENDER DATA: Female. status: : No status: NO. PATIENT RELEVANT IMPLANT DATA REVIEWED: Not Applicable RADIOLOGY DEPARTMENT: Mammography PERIPHERAL IV DATA: Not applicable SIGNED BY: RT Katie(R) November 19, 2021 2:26 PM documented in this encounterBlanchard Valley Health [facility]09-27-2022 Instructions* Patient Instructions* Ryan Avalos II, OD - 11/09/2021 5:25 PM EDT Assessment and Plan H52.03 Hyperopia, bilateral (primary encounter diagnosis) H52.4 Presbyopia Comment: Gave new contact lens richardson to see if better adaptation. I have confirmed and edited as necessary the relevant ophthalmic history, ROS, and the neuro exam findings as obtained by others. I have seen and examined Shakira Franklin. I have discussed the case and the management of this patient's care with the Resident/Fellow, if applicable. I also have reviewed and agree with the assessment and plan as stated above and agree withall of its relevant components. Ryan Avalos II, OD documented in this encounterBlanchard Valley [facility]09-27-2022 History of Present illness Narrative* Ryan Avalos II, OD - 11/09/2021 5:23 PM EDT Assessment and Plan H52.03 Hyperopia, bilateral (primary encounter diagnosis) H52.4 Presbyopia Comment: Gave new contact lens richardson to see if better adaptation. I have confirmed and edited as necessary the relevant ophthalmic history, ROS, and the neuro exam findings as obtained by others. I have seen and examined Shakira Franklin. I have discussed the case and the management of this patient's care with the Resident/Fellow, if applicable. I also have reviewed and agree with the assessment and plan as stated above and agree withall of its relevant components. yRan Avalos II, OD documented in this encounterBlanchard Valley Health System [facility]09-23-2022 History of Present illness Narrative* Gila Cruz, OD - 11/05/2021 3:13 PM EDT 1. Hyperopia, bilateral 2. 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 Well tolerated at this time. Discussed possible future affect on daily activities to watch for. Monitor as instructed. 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 Continue observation. If symptoms of retinal tear/detachment noted return to clinic without delay. Recheck in one year. H52.03 Hyperopia, bilateral H52.4 Presbyopia Comment: Good contact lens candidate. Explained contact lens care, wear time, and handling along with need for good compliance with recommendations to minimize possibility of ocular damage and/or vision loss from use of contact lenses. Monovision contact lens fit. Explained strengths and weaknessesof monovision. Goal is 80-90 percent reduction in use of glasses. Recheck trial fit in one week. Update glasses. I have confirmed and edited as necessary the relevant ophthalmic history, ROS, and the neuro exam findings as obtained by others. I have seen and examined Shakira Franklin. I have discussed the case and the management of this patient's care with the Resident/Fellow, if applicable. I also have reviewed and agree with the assessment and plan as stated above and agree withall of its relevant components. 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 Well tolerated at this time. Discussed possible future affect on daily activities to watch for. Monitor as instructed. 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 Continue observation. If symptoms of retinal tear/detachment noted return to clinic without delay. Recheck in one year. H52.03 Hyperopia, bilateral H52.4 Presbyopia Comment: Good contact lens candidate. Explained contact lens care, wear time, and handling along with need for good compliance with recommendations to minimize possibility of ocular damage and/or vision loss from use of contact lenses. Monovision contact lens fit. Explained strengths and weaknessesof monovision. Goal is 80-90 percent reduction in use of glasses. Recheck trial fit in one week. Update glasses. I have confirmed and edited as necessary the relevant ophthalmic history, ROS, and the neuro exam findings as obtained by others. I have seen and examined Shakira Franklin. I have discussed the case and the management of this patient's care with the Resident/Fellow, if applicable. I also have reviewed and agree with the assessment and plan as stated above and agree withall of its relevant components. Ryan Avalos II, OD documented in this encounterBlanchard Valley Health [facility]08-25-2022 NoteHNO ID: [id number] Author: Kindra Romero, [facility]-PRIMARY CARE PEDIATRICIAN Service: ? Author Type: Speech Language Pathologist Type: Progress Notes Filed: 10/07/2021 1:52 PM Note Text: Start of Care Date: 10/07/21 Onset Date: 02/13/21 Patient Identified by Name and Date of : Yes [facility] MODIFIED BARIUM SWALLOW PLAN OF CARE: Impression: Evidence of: Functional oropharyngeal phases of swallow, without identified risk for aspiration An elevated risk for aspiration: No Swallow Efficiency: Preserved RECOMMENDATION: Diet Recommendations: Regular Consistency;Thin Liquids IDDSI Level 0 Swallowing Precautions Recommendations: Self-monitoring Results and Recommendations Discussed With: Patient SUBJECTIVE: Shakira Franklin is a 60 year old female seen today for a Modified Barium Swallow (MBS) Study. 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 -denies any heartburn sensation, nausea, vomiting, sensation of food items sticking -reports a 'knot' like sensation mid-pharyngeal region -denies any unexpected weight loss Patient Goals: determine current swallowing skills Prior Functional Level: Within Functional Limits OBJECTIVE: MEASURES WITH LEVEL OF FUNCTION: Swallow Position Of Patient During Assessment: Standing Consistencies Presented: Thin Liquids IDDSI Level 0;Pureed IDDSI Level 4;Soft and Bite-Sized IDDSI Level 6;Solid Response to Consistencies Presented: able to follow verbal directives without difficulty to complete today's fluoroscopic assessment; able to self-manage rate and volume of all PO presentations Compensatory Strategies Utilized During Assessment: Self-monitoring Instrumental Swallow Assessment Type: Modified Barium Swallow Study Modified Barium Swallow Views: Lateral position MBS Consistencies Tested: Thin Barium Liquids;Pureed with Barium Paste;Soft and Bite-Sized with Barium Paste;Solid with Barium Paste Oral Phase: Lip Closure: No labial escape/anterior loss of bolus Tongue Control During Bolus Hold: Cohesive bolus between tongue to palatal seal Bolus Preparation/Mastication: Timely and efficient mastication skills Bolus Transport/Lingual Motion: Brisk tongue motion for A-P movement of the bolus Oral Residue: Trace residue lining oral structures Initiation Of Pharyngeal Swallow: Bolus head at posterior angle of ramus Pharyngeal Phase: Soft Palate Elevation: No bolus between soft palate/pharyngeal wall Laryngeal Elevation: Complete superior movement of thyroid cartilage with contact of arytenoids to epiglottic petiole Anterior Hyoid Excursion: Complete anterior movement Epiglottic Movement: Complete inversion Laryngeal Vestibular Closure/Height of the Swallow: Complete - no air/contrast in laryngeal vestibule Pharyngeal Stripping Wave: Complete Pharyngoesophageal Segment Opening: Complete distension and complete duration/no obstruction of flow of bolus Tongue Base Retraction: Trace column of contrast or air between tongue base and pharyngeal wall Pharyngeal Residue: Trace residue within or on the pharyngeal structures;Residue within the valleculae following the swallow Esophageal Clearance In An Upright Position: Esophageal retention (dependent on additional time and swallow to effectively clear) Penetration-Aspiration Scale for MBSS Level 1-Material does not enter airway Education: Education Learning Preferences: Explanation Barriers: None Learning/Educational Needs: MBSs results Education Provided: Yes, see treatment interventions for education provided Education Provided To: Patient Education Mode/Type: Explanation/Discussion Response to Education/Teach Back: States/Identifies TREATMENT: Performed Modified Barium Swallowing Study (55088). Education regarding findings from today's Modified Barium Swallowing study (fluoroscopic study) were provided to the patient through verbal / written instruction, and/or demonstration. Patient appeared to be able to demonstrate understanding of education provided this date. Billing: Modified Barium Swallow ([id number]) Total time: 30 minutes Kindra Romero CCC-[facility]08-25-2022 NoteHNO ID: [id number] Author: RT Sloan(R) Service: Radiology Author Type: Technologist Type: Progress Notes Filed: 10/07/2021 1:42 PM Note Text: Radiology Service Progress Note PATIENT NAME: Shakira Franklin DATE OF SERVICE: October 07, 2021 TIME: 1:41 PM PATIENT IDENTITY VERIFICATION COMPLETED USING TWO (2) IDENTIFIERS: Name and Date of confirmed by patient verbally. FALL SCREENING: Has the patient had 2 falls in the last year or 1 fall with injury or currently using an Ambulatory Assistive Device (Walker, Cane, Wheelchair, Crutches, etc.)? No PATIENT GENDER DATA: Female. status: : No status: NO. PATIENT RELEVANT IMPLANT DATA REVIEWED: Not Applicable RADIOLOGY DEPARTMENT: General X-ray: Exam(s) Completed: GI/ Procedure(s): Modified barium swallow with barium contrast PERIPHERAL IV DATA: Not applicable SIGNED BY: RT Sloan(R) October 07, 2021 1:41 PMCleveland Clinic South Pointe [id number] History of Present illness Narrative* Kindra Romero [facility] - 10/07/2021 1:12 PM EDT Start of Care Date: 10/07/21 Onset Date: 02/13/21 Patient Identified by Name and Date of : Yes [facility] MODIFIED BARIUM SWALLOW PLAN OF CARE: Impression: Evidence of: Functional oropharyngeal phases of swallow, without identified risk for aspiration An elevated risk for aspiration: No Swallow Efficiency: Preserved RECOMMENDATION: Diet Recommendations: Regular Consistency;Thin Liquids IDDSI Level 0 Swallowing Precautions Recommendations: Self-monitoring Results and Recommendations Discussed With: Patient SUBJECTIVE: Shakira Franklin is a 60 year old female seen today for a Modified Barium Swallow (MBS) Study. 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 -denies any heartburn sensation, nausea, vomiting, sensation of food items sticking -reports a 'knot' like sensation mid-pharyngeal region -denies any unexpected weight loss Patient Goals: determine current swallowing skills Prior Functional Level: Within Functional Limits OBJECTIVE: MEASURES WITH LEVEL OF FUNCTION: Swallow Position Of Patient During Assessment: Standing Consistencies Presented: Thin Liquids IDDSI Level 0;Pureed IDDSI Level 4;Soft and Bite-Sized IDDSI Level 6;Solid Response to Consistencies Presented: able to follow verbal directives without difficulty to complete today's fluoroscopic assessment; able to self-manage rate and volume of all PO presentations Compensatory Strategies Utilized During Assessment: Self-monitoring Instrumental Swallow Assessment Type: Modified Barium Swallow Study Modified Barium Swallow Views: Lateral position MBS Consistencies Tested: Thin Barium Liquids;Pureed with Barium Paste;Soft and Bite-Sized with Barium Paste;Solid with Barium Paste Oral Phase: Lip Closure: No labial escape/anterior loss of bolus Tongue Control During Bolus Hold: Cohesive bolus between tongue to palatal seal Bolus Preparation/Mastication: Timely and efficient mastication skills Bolus Transport/Lingual Motion: Brisk tongue motion for A-P movement of the bolus Oral Residue: Trace residue lining oral structures Initiation Of Pharyngeal Swallow: Bolus head at posterior angle of ramus Pharyngeal Phase: Soft Palate Elevation: No bolus between soft palate/pharyngeal wall Laryngeal Elevation: Complete superior movement of thyroid cartilage with contact of arytenoids to epiglottic petiole Anterior Hyoid Excursion: Complete anterior movement Epiglottic Movement: Complete inversion Laryngeal Vestibular Closure/Height of the Swallow: Complete - no air/contrast in laryngeal vestibule Pharyngeal Stripping Wave: Complete Pharyngoesophageal Segment Opening: Complete distension and complete duration/no obstruction of flow of bolus Tongue Base Retraction: Trace column of contrast or air between tongue base and pharyngeal wall Pharyngeal Residue: Trace residue within or on the pharyngeal structures;Residue within the valleculae following the swallow Esophageal Clearance In An Upright Position: Esophageal retention (dependent on additional time andswallow to effectively clear) Penetration-Aspiration Scale for MBSS Level 1-Material does not enter airway Education: Education Learning Preferences: Explanation Barriers: None Learning/Educational Needs: MBSs results Education Provided: Yes, see treatment interventions for education provided Education Provided To: Patient Education Mode/Type: Explanation/Discussion Response to Education/Teach Back: States/Identifies TREATMENT: Performed Modified Barium Swallowing Study (67590). Education regarding findings from today's Modified Barium Swallowing study (fluoroscopic study) were provided to the patient through verbal / written instruction, and/or demonstration. Patient appeared to be able to demonstrate understanding of education provided this date. Billing: Modified Barium Swallow ([id number]) Total time: 30 minutes Kindra Romero CCC-PRIMARY CARE PEDIATRICIAN documented in this encounterBl[facility] Miscellaneous Notes* Telephone Encounter - Francie Melissa RN - 10/04/2021 9:30 AM EDT Called patient at this time in regards to annual mammogram. Patient expressed there was not one scheduled yet. Requesting order and appointment for mammogram for this year prior to December. TRESA Joshua, RN Clinical Research Nurse [phone] documented in this encounterBlanchard Valley [facility]08-10-2022 History of Present illness Narrative* Kena Kitchen PA-C - 09/22/2021 10:37 AM EDT Images from the original note were not included. Otolaryngology Consultation/Evaluation Note Head and Neck [place] ASSESSMENT: (J38.7) Laryngeal hyperfunction (primary encounter diagnosis) (J38.4) Vocal cord edema (R49.0) Hoarseness of voice PLAN: - Flexible Laryngoscopy today. No apparent mass, lesion, or infection. TVC movement intact and symmetric. Fluffy edema to medial edges of bilateral true vocal cords, L>R, most prominent during inspiratory phonation. Mild erythema and edema to posterior glottis. 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 - Question episodes of laryngospasm given patient's description of intermittent sensation of choking while talking. Unable to provoke today during flexible laryngoscopy. - Recommend taking small sips of water or straw breathing when this happens. - Recommend PPI x 3 months, vocal hygiene, adequate hydration, and minimize laryngeal irritants. Currently on Chantix for smoking cessation. - Additionally recommend consult to Speech Therapy given possible laryngospasms and laryngeal hyperfunction. Declines today. - Scheduled for MBS later this month per GI recommendations FOLLOW UP: Return 3 months. Call sooner if problems develop. Reason for Consult: Shakira Franklin is a 60 year old female who is seen at the request of Sarah Jefferson APRN.CNP for evaluation of choking. My findings and recommendations will be communicated to the referring provider via the shared electronic medical record. HPI: Shakira Franklin is a 60 year old female who presents for evaluation of episodes of choking/gasping for air while talking x 3 years. Notes sensation occurs at random while talking for extended periods of time. Lasts for ~30-60 seconds then resolves. Feels as though there is a knot in her throat afterwards. Taking sips of water helps. Often feels that throat is very dry. Occ dry cough. Also notes bouts of laryngitis that occur after occupational related voice overuse, vocal strain, or at random.Will rest voice as much as possible when this happens. Throat lozenges help. Voice is hoarse at baseline and has gradually worsened over many years. She admits to limited range. Admits to frequent vocal strain. Can no longer sing like she used to. Denies unintentional weight loss, SOB, dysphagia tosolids or liquids, odynophagia, otalgia, heartburn/reflux, throat clearing, post nasal drip, odynophonia. No h/o thyroid disease. Caffeine: 1 cup of coffee in the AM, 1 soda per day Alcohol: Rarely Tobacco: ~12 year history of 1/2 PPD. Recently started Chantix. H/o breast cancer dx 2012 PAST MEDICAL HISTORY PAST MEDICAL HISTORY Diagnosis Date Abnormal uterine bleeding (AUB) 2001 Hysterectomy Breast cancer (HCC) 03/06/2017 Malignant neoplasm of right breast in female, estrogen receptor positive (HCC) 03/06/2017 Mitral valve prolapse PVC (premature ventricular contraction) Smoker Supraventricular tachycardia (HCC) 11/23/2020 PAST SURGICAL HISTORY PAST SURGICAL HISTORY Procedure Laterality Date AXILLARY LYMPHADENECTOMY 07/31/2012 right axilla BREAST AUGMENTATION W/PROSTHETIC IMPLANT 1999 BREAST BIOPSY CORE 05/30/2012 right breast BREAST BIOPSY CORE 06/06/2012 right breast BREAST RECONSTRUCTION 07/19/2012 right breast single step implant CARPAL TUNNEL Bilateral wrists COLONOSCOPY FLX DX W/COLLJ SPEC WHEN PFRMD 01/01/2013 Normal colonoscopy-5 year followup - family history COLONOSCOPY FLX DX W/COLLJ SPEC WHEN PFRMD 05/08/2013 Colonoscopy EGD TRANSORAL BIOPSY SINGLE/MULTIPLE 01/01/2013 gastritis FNA UNDER GUIDANCE 06/06/2012 right breast by ultrasound INCISE FINGER TENDON SHEATH Right 09/18/2019 Right trigger thumb release LIG/TRNSXJ FLP TUBE ABDL/VAG APPR UNI/BI 1984 MASTECTOMY, SIMPLE, COMPLETE 07/19/2012 right breast with SLND PAST SURGICAL HISTORY OF oral surgery PAST SURGICAL HISTORY OF removal of pingula left eye TONSILLECTOMY HX VAGINAL HYSTERECTOMY UTERUS 250 GM/< 2001 AUB, possible abnormal pap prior to hysterectomy SOCIAL HISTORY Tobacco Use: .5 packs/day, for 12 years. Types: Cigarettes (relapsed 10/2020) Alcohol Use: Not Currently (once a month, 1 drink) FAMILY HISTORY FAMILY HISTORY Problem Relation Age of Onset Allergies Mother Heart Mother Hypertension Mother Stroke Mother Anesthesia Father Macular Degen Father other (Other) Father Colon Cancer Father 60 Skin Cancer Father Hypertension Sister Lymphoma Sister Allergies Sister other (non-hodgkins lymphoma) Sister other ([place]-Echo Syndrome) Sister Heart Attack Brother 57 other (Leukemia) Paternal Aunt Colon Cancer Paternal Uncle dx 70's other (Leukemia) Paternal Uncle Breast Cancer Other maternal aunt, in her 60's Prostate Cancer Other paternal cousin Cancer Other paternal first cousin dx lacrimal sac tumor d. 25 Cancer Other /paternal first cousin dx tumor size of cabbage on chest wall MEDICATIONS albuterol HFA (PROVENTIL HFA, VENTOLIN HFA) 90 mcg/actuation inhaler Inhale 2 Puffs as instructed every 6 hours as needed for wheezing/shortness of breath. varenicline (CHANTIX CONTINUING MONTH BOX) 1 mg tablet Take 1 tablet by mouth twice daily. multivit-min/vit C/herb no.124 (AIRBORNE GUMMY ORAL) Take by mouth. fluocinonide (LIDEX) 0.05 % cream Apply to affected area twice daily as needed (for areas of rash, limit to not more than 2 weeks use at a time.). varenicline (CHANTIX STARTING MONTH BOX) 0.5 mg (11)- 1 mg (42) tablet Take 0.5 mg by mouth once daily on Days 1 through 3, THEN 0.5 mg twice daily on Days 4 through 7, THEN 1 mg twice daily on Day 8and thereafter ALLERGIES Arimidex [Anastrozole], Aromasin [Exemestane], Tamoxifen, and Letrozole REVIEW OF SYSTEMS: See HPI above PHYSICAL EXAM Physical exam template on 09/22/2021 was completed in entirety on day of appointment and negative except where noted below: On physical examination Shakira Franklin is a well-developed, well nourished female. Her speech is normal and her voice is hoarse. Mental status revealed patient to be alert and oriented. Mood is appropriate. Details of the physical examination: Cranial Nerves: II-X Grossly Intact HEAD AND FACE: Physical examination of the head, neck, external nose, external ears, mouth and facefails to demonstrate any significant abnormality or asymmetry to critical face to face observation.Skin and scalp are normal. EARS: RT- EAC patent, TM intact, mobile, free of infection or effusion LT- EAC patent, TM intact, mobile, free of infection or effusion NOSE: Examination of the nasal cavity revealed a septum which is normal . The mucosa is pink, and the visible turbinates are normal on anterior rhinoscopy. There is no purulence or polyps. MASTICATION: The lips and gums are without lesions. ORAL CAVITY AND OROPHARYNX: The oral mucosa, hard and soft palates, tongue, tonsil area, and posterior pharyngeal wall are without lesions. Tonsils absent. NECK: The neck appears symmetric without scars. On palpation, there are no masses or lymphadenopathy. The thyroid is not palpable and was free of masses. No salivary gland masses or hypertrophy is noted. PROCEDURE: FLEXIBLE LARYNGOSCOPY PRE-OPERATIVE DIAGNOSIS: Hoarseness and choking sensation PERSONNEL PERFORMING PROCEDURE: Kena Kitchen PA-C INDICATIONS: Hoarseness and dysphagia/choking not able to be clearly evaluated by indirect laryngoscopy ANESTHESIA: Oxymetazoline and Lidocaine PROCEDURE: With the patient sitting upright in the examining chair and the risks, benefits, personnel and alternatives were discussed and the patient agrees to proceed. After the topical application of anesthesia, and after waiting an appropriate period of time for anesthesia/vasoconstriction to become effective, the flexible laryngoscope was passed through the anterior nares. The nose, nasopharynx, oropharynx, hypopharynx and larynx were examined. FINDINGS: The nasopharynx and oropharynx were normal without any lesions or masses visualized. The base of tongue, vallecula, epiglottis, aryepiglottic folds, pyriform sinuses, and lateral pharyngealwall were normal without any lesions or masses visualized with the exception of: There was erythemaof the posterior glottis, with some mucosal changes, consistent with Acid Reflux. There were no masses, lesions, ulcerations or areas of erythroplasia or leukoplakia identified. Vocal cord motion wasintact, symmetrical and normal in excursion bliaterally. Bilateral fluffy edema to medial aspect ofbilateral true vocal cords most prominent during inspiratory phonation. No lesions visualized. The p atient's airway was widely patent with no evidence of obstruction. Patient tolerated procedure wellwithout difficulty or complication. Please see the top of this note for the Assessment and Plan. Kena Kitchen PA-C Medical Decision Making: Problems: Moderate: 1+ chronic illnesses with change Risk: Moderate: Drug management Medical Decision Making Level: 4 - Moderate documented in this encounterBlanchard [facility]07-26-2022 History of Present illness Narrative* JAZMINE Feliz - 09/07/2021 3:16 PM EDT PULM FUNCTION SMARTBLOCK: Provider: Christiano Wooten MD Assisting Tech: JAZMINE Feliz Spirometry w/BD: 1 LV - Box: 1 documented in this encounterBlanchard Valley [facility]07-21-2022 Instructions* Patient Instructions* Sarah Jefferson APRN.CNP - 09/02/2021 1:52 PM EDT Thank you for seeing me in clinic today. It was very nice to meet you! As we discussed, my recommendations are as follows: 1.MBS (swallowing test) 2.ENT consult 3.benefiber daily If you have any questions about the above treatment plan, please do not hesitate to send me a BetUknow message or call the [facility] at [phone] to route me amessage. documented in this encounterBlanchard Valley [facility]07-21-2022 History and physical note * Sarah Jefferson APRN.CNP - 09/02/2021 1:30 PM EDT Consultation requested by Dr. Lorena Claros for an opinion regarding choking. My final recommendations will be communicated back to the requesting physician by way of shared medical record or fax. REASON FOR VISIT: choking HPI: Shakira Franklin is a 60 year old female who presents for Choking. She admits to intermittent episodes of choking when talking for the past 3 years. She describes this as her throat becoming dry when talking and then coughing, becoming unable to catch her breath. She states it feels as if her vocal cords are swelling up and becoming irritated. She denies difficulty swallowing liquids and solids. She denies reflux and heartburn. She was prescribed a trial of Prilosec which she did not try. She states that she recently had food poisoning in July from [employer] peanut butter. She admits to having bloody diarrhea accompanied by abdominal cramping for 2 days. She was prescribed Cipro and Flagylby her PCP. Her symptoms have resolved. Her last colonoscopy was in 2013 and revealed lymphocytic colitis. She admits that she will never have another colonoscopy. Past Clinical Work-Up: Colonoscopy - 05/08/13 - The entire examined colon is normal. Biopsied. Colon, random, biopsies - Multiple fragments of colonic mucosa with lymphocytic colitis-type pattern. - See comment COMMENT Multiple pieces of colonic mucosa are available for evaluation and demonstrate a lymphocytic colitis pattern of injury. The subepithelial collagen layer appears normal in thickness without evidence of collagenous colitis. Given the patient's history, a drug induced lymphocytic colitis should be clinically excluded EGD - 01/01/13 - Erythematous duodenopathy. - Gastritis. Biopsied. - Normal gastric fundus. - Normal esophagus. - Normal larynx. 1. Stomach, antrum, biopsy (A) - Antral mucosa with reactive gastropathy; no morphologic evidence of Helicobacter pylori infection. CT ABD/PEL - 10/18/18 IMPRESSION: No acute intra-abdominal/pelvic abnormalities are identified. No evidence of metastatic disease. Diverticulosis. No evidence of Hydronephrosis Recent Labs: Component Latest Ref Rng & Units 09/16/2020 IgA 70 - 400 mg/dL 190 Transglutaminase Ab, IgA <20 Units 4 Interpretation (Celiac Screen) No serologic evidence of celiac disease. No serologic evidence of celiac disease. ALLERGIES Allergen Reactions Arimidex [Anastrozo* Rash Aromasin [Exemestan* Diarrhea Tamoxifen Rash Letrozole Rash PAST MEDICAL HISTORY Diagnosis Date Abnormal uterine bleeding (AUB) 2001 Hysterectomy Breast cancer (HCC) 03/06/2017 Malignant neoplasm of right breast in female, estrogen receptor positive (HCC) 03/06/2017 Mitral valve prolapse PVC (premature ventricular contraction) Smoker Supraventricular tachycardia (HCC) 11/23/2020 PAST SURGICAL HISTORY Procedure Laterality Date AXILLARY LYMPHADENECTOMY 07/31/2012 right axilla BREAST AUGMENTATION W/PROSTHETIC IMPLANT 1999 BREAST BIOPSY CORE 05/30/2012 right breast BREAST BIOPSY CORE 06/06/2012 right breast BREAST RECONSTRUCTION 07/19/2012 right breast single step implant CARPAL TUNNEL Bilateral wrists COLONOSCOPY FLX DX W/COLLJ SPEC WHEN PFRMD 01/01/2013 Normal colonoscopy-5 year followup - family history COLONOSCOPY FLX DX W/COLLJ SPEC WHEN PFRMD 05/08/2013 Colonoscopy EGD TRANSORAL BIOPSY SINGLE/MULTIPLE 01/01/2013 gastritis FNA UNDER GUIDANCE 06/06/2012 right breast by ultrasound INCISE FINGER TENDON SHEATH Right 09/18/2019 Right trigger thumb release LIG/TRNSXJ FLP TUBE ABDL/VAG APPR UNI/BI 1984 MASTECTOMY, SIMPLE, COMPLETE 07/19/2012 right breast with SLND PAST SURGICAL HISTORY OF oral surgery PAST SURGICAL HISTORY OF removal of pingula left eye TONSILLECTOMY HX VAGINAL HYSTERECTOMY UTERUS 250 GM/< 2001 AUB, possible abnormal pap prior to hysterectomy FAMILY HISTORY Problem Relation Age of Onset Allergies Mother Heart Mother Hypertension Mother Stroke Mother Anesthesia Father Macular Degen Father other (Other) Father Colon Cancer Father 60 Skin Cancer Father Hypertension Sister Lymphoma Sister Allergies Sister other (non-hodgkins lymphoma) Sister other ([place] Syndrome) Sister Heart Attack Brother 57 other (Leukemia) Paternal Aunt Colon Cancer Paternal Uncle dx 70's other (Leukemia) Paternal Uncle Breast Cancer Other maternal aunt, in her 60's Prostate Cancer Other paternal cousin Cancer Other paternal first cousin dx lacrimal sac tumor d. 25 Cancer Other /paternal first cousin dx tumor size of cabbage on chest wall Social History Tobacco Use Smoking status: Current Some Day Smoker Packs/day: 0.50 Years: 12.00 Pack years: 6.00 Types: Cigarettes Smokeless tobacco: Never Used Tobacco comment: relapsed 10/2020 Vaping Use Vaping Use: Never used Substance Use Topics Alcohol use: Not Currently Comment: once a month, 1 drink Drug use: Not Currently Comment: History of remote cocaine use(as young adult) Current Outpatient Medications Medication Sig albuterol HFA (PROVENTIL HFA, VENTOLIN HFA) 90 mcg/actuation inhaler Inhale 2 Puffs as instructed every 6 hours as needed for wheezing/shortness of breath. varenicline (CHANTIX STARTING MONTH BOX) 0.5 mg (11)- 1 mg (42) tablet Take 0.5 mg by mouth once daily on Days 1 through 3, THEN 0.5 mg twice daily on Days 4 through 7, THEN 1 mg twice daily on Day 8and thereafter varenicline (CHANTIX CONTINUING MONTH BOX) 1 mg tablet Take 1 tablet by mouth twice daily. multivit-min/vit C/herb no.124 (AIRBORNE GUMMY ORAL) Take by mouth. fluocinonide (LIDEX) 0.05 % cream Apply to affected area twice daily as needed (for areas of rash, limit to not more than 2 weeks use at a time.). No current facility-administered medications for this visit. I have confirmed and edited, if necessary, the PFSH obtained by others. REVIEW OF SYSTEMS: CONSTITUTIONAL: Negative for unintentional weight loss, malaise or fevers HEENT: Negative for frequent/significant headaches, changes in hearing/vision, nose bleeds or othernasal problems RESPIRATORY: Negative for cough, hemoptysis, wheezing or dyspnea CARDIOVASCULAR: Negative for chest pain, palpitations, syncope or lightheadedness GI: See HPI PSYCH: Negative for new changes in mood or affect I have confirmed and edited, if necessary, the PFSH obtained by others. PHYSICAL EXAM: BP 98/64 Pulse 76 Wt 59 kg (130 lb) BMI 20.98 kg/m Gen: Comfortable in NAD Head: Normocephalic, atraumatic Skin: No jaundice, rashes or skin lesions Eyes: Sclera anicteric, conjunctiva pink Heart: RRR Lungs: CTAB Abd: Soft, non-distended, non-tender, bowel sounds present, no palpable masses or organomegaly Rectal Exam: Examination deferred by patient Neuro: Alert and oriented, no tremor or gross focal motor deficits Psych: Congruent mood and affect, appropriate insight and judgement ASSESSMENT/PLAN: Ms. Franklin is a 60 year old female with a history of SVT and breast cancer presents for choking. Sheadmits to intermittent episodes of choking when talking for the past 3 years. She describes this deanna throat becoming dry when talking and then coughing, becoming unable to catch her breath. She states it feels as if her vocal cords are swelling up and becoming irritated. She denies difficulty swallowing liquids and solids. She denies reflux and heartburn. She was prescribed a trial of Prilosecwhich she did not try. I recommend an MBS for further evaluation of her symptoms. I also recommend a consult to ENT given her throat dryness and cough. She is agreeable with the above plan and was enc ouraged to call with any questions and concerns. 1. Choking, sequela - ICD9: 908.5, ICD10: T17.308S (primary diagnosis) - XR MODIFIED BARIUM SWALLOW W SPEECH THERAPY 2. Throat dryness - ICD9: 478.29, ICD10: J39.2 - CONSULT TO ENT 3. Cough, unspecified type - ICD9: 786.2, ICD10: R05.9 - CONSULT TO ENT This note was dictated using [employer] speech recognition software and may contain some errors that were a result of the program not accurately transcribing what was dictated. Sarah Jefferson APRN.VALERIA documented in this encounterBl[facility] History of Present illness Narrative* Denis Rankin, RT(R) - 08/25/2021 2:40 PM EDT Radiology Service Progress Note PATIENT NAME: Shakira Franklin DATE OF SERVICE: August 25, 2021 TIME: 2:39 PM PATIENT IDENTITY VERIFICATION COMPLETED USING TWO (2) IDENTIFIERS: Name and Date of confirmedby patient verbally. FALL SCREENING: Has the patient had 2 falls in the last year or 1 fall with injury or currently using an Ambulatory Assistive Device (Walker, Cane, Wheelchair, Crutches, etc.)? No PATIENT GENDER DATA: Female. status: : No status: NO. PATIENT RELEVANT IMPLANT DATA REVIEWED: Not Applicable RADIOLOGY DEPARTMENT: General X-ray: Exam(s) Completed: Chest X-Ray PERIPHERAL IV DATA: Not applicable SIGNED BY: RT Alicia(R) August 25, 2021 2:39 PM documented in this encounterBlanchard Valley [facility]07-13-[facility] History of Present illness Narrative* Christiano Wooten MD - 08/25/2021 11:09 AM EDT This note was created using [employer]. Subjective Shakira Franklin is a 60 year old female. She was seen in the ED on July 08 for gastritis and colitis. She was seeing Dr. Hart and was scheduled for endoscopy. She was seen in the ED July 28 for dyspnea, cough, and wheezing. She was diagnosed with COPD and pneumonia. She just started Chantix. Review of Systems Constitutional: Negative. Respiratory: Negative. Cardiovascular: Negative. Gastrointestinal: Negative. Neurological: Negative. ACTIVE PROBLEM LIST Examination of Participant in Clinical Trial Hyperopia Senile Nuclear Cataract Malignant Neoplasm of Right Breast in Female, Estrogen Receptor Positive (Hcc) Tobacco Use Disorder Pharyngeal Dysphagia Cough Supraventricular Tachycardia (Hcc) Current Outpatient Medications Medication Sig varenicline (CHANTIX CONTINUING MONTH BOX) 1 mg tablet Take 1 tablet by mouth twice daily. multivit-min/vit C/herb no.124 (AIRBORNE GUMMY ORAL) Take by mouth. fluocinonide (LIDEX) 0.05 % cream Apply to affected area twice daily as needed (for areas of rash, limit to not more than 2 weeks use at a time.). varenicline (CHANTIX STARTING MONTH BOX) 0.5 mg (11)- 1 mg (42) tablet Take 0.5 mg by mouth once daily on Days 1 through 3, THEN 0.5 mg twice daily on Days 4 through 7, THEN 1 mg twice daily on Day 8and thereafter No current facility-administered medications for this visit. Objective BP 108/66 (BP Site: Left Arm, BP Position: Sitting, BP Cuff Size: Large Adult) Pulse 72 Temp 36.5 C (97.7 F) (Temporal Artery) Resp 16 Wt 59 kg (130 lb) BMI 20.98 kg/m Physical Exam Constitutional: Appearance: Normal appearance. Cardiovascular: Rate and Rhythm: Normal rate and regular rhythm. Heart sounds: No murmur heard. Pulmonary: Effort: No respiratory distress. Breath sounds: Wheezing present. No rhonchi or rales. Abdominal: Tenderness: There is no abdominal tenderness. Musculoskeletal: Right lower leg: No edema. Left lower leg: No edema. Neurological: Mental Status: She is alert. Assessment and Plan 1. Pneumonia of left lower lobe due to infectious organism - ICD9: 486, ICD10: J18.9 (primary diagnosis) - XR CHEST 2V FRONTAL/LAT 2. Wheezing - ICD9: 786.07, ICD10: R06.2 - XR CHEST 2V FRONTAL/LAT - SPIROMETRY - BASELINE AND POST DILATOR - LUNG VOLUMES - CONSULT TO PULMONARY MEDICINE - ALBUTEROL SULFATE HFA 90 MCG/ACTUATION AEROSOL INHALER 3. Tobacco use disorder - ICD9: 305.1, ICD10: F17.200 - Cessation encouraged. - Chantix started. 4. Need for vaccination - ICD9: V05.9, ICD10: Z23 - PNEUMOCOCCAL VACCINE (PREVNAR 20) Christiano Wooten MD documented in this encounterBlanchard Valley [facility]06[facility] History of Present illness Narrative* Cheryl Denton, ACID TREATER.PHARMACEUTICAL OFFICER - 07/20/2021 11:35 AM EDT CC: Patient presents with: ED Follow-up: [facility] 07/15. Food poisoning HPI Shakira Franklin is a 60 year old female who presents today for ER follow-up. Facility: [facility] Date of visit: 07/08/21 Reason for visit: nausea, vomiting, bloody diarrhea, abdominal cramping x 2 days Hospital course: CMP, CBC, amylase, lipase normal. CT abdomen showed gastritis and colitis. Gastroenterology was consulted. Recommended treatment with Cipro and Protonix and outpatient follow-up withGI. Current symptoms: today patient reports diarrhea has resolved, stools are small and mushy. Still shedding lining in stools that is white in appearance. Denies any further bloody stools and no black/tarry stools. No emesis since ER visit. Still feeling extremely tired and appetite is minimal. Denies fever, chills, dizziness, lightheadedness, nausea, syncope, feeling faint, dark/concentrated urine or decreased urine output. She has an appointment with GI but not until August. She developed URI symptoms about 6 days ago. Reports productive cough, sore throat, hoarse voice. Denies SOB, chest pain, nasal congestion, rhinorrhea, loss of taste/smell, headache. She took two home COVID tests that were both negative. REVIEW OF SYSTEMS See HPI PAST MEDICAL HISTORY Diagnosis Date Breast cancer (HCC) Diarrhea Malignant neoplasm of right breast in female, estrogen receptor positive (HCC) 03/06/2017 Mitral valve prolapse PVC (premature ventricular contraction) Smoker PAST SURGICAL HISTORY Procedure Laterality Date AXILLARY LYMPHADENECTOMY 07/31/2012 right axilla BREAST AUGMENTATION W/PROSTHETIC IMPLANT 1999 BREAST BIOPSY CORE 05/30/2012 right breast BREAST BIOPSY CORE 06/06/2012 right breast BREAST RECONSTRUCTION 07/19/2012 right breast single step implant CARPAL TUNNEL Bilateral wrists COLONOSCOPY FLX DX W/COLLJ SPEC WHEN PFRMD 01/01/13 Normal colonoscopy-5 year followup - family history COLONOSCOPY FLX DX W/COLLJ SPEC WHEN PFRMD 05/08/13 Colonoscopy EGD TRANSORAL BIOPSY SINGLE/MULTIPLE 01/01/13 gastritis FNA UNDER GUIDANCE 06/06/2012 right breast by ultrasound HYSTERECTOMY HX INCISE FINGER TENDON SHEATH Right 09/18/2019 Right trigger thumb release LIG/TRNSXJ FLP TUBE ABDL/VAG APPR UNI/BI 1984 MASTECTOMY, SIMPLE, COMPLETE 07/19/2012 right breast with SLND PAST SURGICAL HISTORY OF oral surgery PAST SURGICAL HISTORY OF removal of pingula left eye TONSILLECTOMY HX VAGINAL HYSTERECTOMY UTERUS 250 GM/< about 2001 AUB, possible abnormal pap prior to hysterectomy ALLERGIES Arimidex [Anastrozole], Aromasin [Exemestane], Tamoxifen, and Letrozole MEDICATIONS varenicline (CHANTIX STARTING MONTH BOX) 0.5 mg (11)- 1 mg (42) tablet Take 0.5 mg by mouth once daily on Days 1 through 3, THEN 0.5 mg twice daily on Days 4 through 7, THEN 1 mg twice daily on Day 8and thereafter varenicline (CHANTIX CONTINUING MONTH BOX) 1 mg tablet Take 1 tablet by mouth twice daily. omeprazole (PRILOSEC) 20 mg capsule Take 2 capsules by mouth once daily. multivit-min/vit C/herb no.124 (AIRBORNE GUMMY ORAL) Take by mouth. fluocinonide (LIDEX) 0.05 % cream Apply to affected area twice daily as needed (for areas of rash, limit to not more than 2 weeks use at a time.). FAMILY HISTORY Problem Relation Age of Onset Allergies Mother Heart Mother Hypertension Mother Stroke Mother Anesthesia Father Macular Degen Father other (Other) Father Colon Cancer Father 60 Skin Cancer Father Hypertension Sister Lymphoma Sister Allergies Sister other (non-hodgkins lymphoma) Sister other (Jim-Rochester Syndrome) Sister Heart Attack Brother 57 other (Leukemia) Paternal Aunt Colon Cancer Paternal Uncle dx 70's other (Leukemia) Paternal Uncle Breast Cancer Other maternal aunt, in her 60's Prostate Cancer Other paternal cousin Cancer Other paternal first cousin dx lacrimal sac tumor d. 25 Cancer Other /paternal first cousin dx tumor size of cabbage on chest wall Social History Tobacco Use Smoking status: Current Some Day Smoker Packs/day: 0.50 Years: 12.00 Pack years: 6.00 Types: Cigarettes Smokeless tobacco: Never Used Tobacco comment: relapsed 10/2020 Vaping Use Vaping Use: Never used Substance Use Topics Alcohol use: Not Currently Comment: once a month, 1 drink Drug use: Not Currently Comment: History of remote cocaine use(as young adult) PHYSICAL EXAM BP 122/86 Pulse 60 Resp 14 Wt 59 kg (130 lb) BMI 20.98 kg/m General Appearance: well appearing, in no acute distress, alert Eyes: conjunctiva pink and moist, no icterus, sclera white, non-injected Ears: external ears normal to inspection and palpation, canals clear, Left tympanic membrane normal. , Right tympanic membrane normal Nose/sinus: No sinus tenderness Neck: Neck supple, No adenopathy Oropharynx: Moist without lesions Lymph nodes: No supraclavicular lymphadenopathy Lungs: Lungs clear to auscultation. No wheezing, rhonchi, rales. Heart: RRR without murmur, gallop, or rubs. No ectopy Abdomen: Soft, non-distended. mild generalized abdominal tenderness with palpation. No guarding or rebound tenderness. Bowel sounds normal and active. No masses, organomegaly DATA REVIEWED: Outside chart from [facility] ER reviewed. ASSESSMENT/PLAN: 1. Colitis presumed to be due to infection - ICD9: 009.1, ICD10: K52.9 (primary diagnosis) Symptoms improved. Diarrhea resolved. Still feeling weak and tired. encouraged patient to continue to push fluids and bland diet Follow-up with GI as scheduled 2. Acute gastritis, presence of bleeding unspecified, unspecified gastritis type - ICD9: 535.00, ICD10: K29.00 As above 3. Viral URI - ICD9: 465.9, ICD10: J06.9 Home COVID tests negative x 2 - Discussed viral etiology and rationale for treatment. - Symptomatic treatment with prn analgesia - Supportive care with fluids and rest - Follow up in one week if symptoms persist or sooner if worsening of symptoms 4. Diarrhea of presumed infectious origin - ICD9: 009.3, ICD10: R19.7 resolved 5. Vomiting, unspecified vomiting type, unspecified whether nausea present - ICD9: 787.03, ICD10: R11.10 Resolved Prescription instructions reviewed with patient as applicable. Potential red flag symptoms discussed with the patient. Reviewed appropriate action plan to take if red flag symptoms occur. Patient agreeable to treatment plan. Cheryl Denton APRN.CNP documented in this encounterBlanchard Valley [facility]05-28-[facility] Miscellaneous Notes* Telephone Encounter - Christiano Wooten MD - 07/10/2021 8:45 AM EDT Noted. * Telephone Encounter - Izzy Bach LPN - 07/08/2021 2:50 PM EDT Patient calling said today she started with odd stools, blood, clots, mucous. She said she has vomited several times. She has not eaten anything today, she is trying to drink gatorade and water. Advised to got to ER for evaluation. Patient plans to go to [facility] ER. documented in this encounterBlanchard Valley [facility]04-18-[facility] History of Present illness Narrative* Lorena Goveas, ACID TREATER.HOSTEL MANAGER - 05/31/2021 12:50 PM EDT SUBJECTIVE: HPV TESTING Never done LIPID SCREEN Never done PAP TESTING due on 11/07/2019 SHINGRIX VACCINE(2 of 2) due on 12/21/2020 COLORECTAL CANCER SCREENING due on 05/22/2021 HPI Shakira Franklin is a 60 year old female. PMH significant for ACTIVE PROBLEM LIST Abdominal Pain, Epigastric Examination of Participant in Clinical Trial Hyperopia Presbyopia Senile Nuclear Cataract Malignant Neoplasm of Right Breast in Female, Estrogen Receptor Positive (Hcc) Tobacco Use Disorder Palpitations Rash and Nonspecific Skin Eruption Pharyngeal Dysphagia Cough Supraventricular Tachycardia (Hcc) Presents today regarding a feeling like she is choking on air. Notes not choking on food. Notes sensation something is in her throat. Notes epigastric discomfort. Follow up abnormal mammogram at [facility] 12/2020, within normal limits. See scanned documents. Current smoker: yes, trying to quit. Colon cancer screen: due for FOBT, notes problem in the past following colonoscopy. Fevers: no Weight loss: no Notes no HB or GERD. Some epigastric discomofort. No N/V/D/C, no BRBPR or black or tarry stools. Coffee one daily. Etoh: 1 time per month Notes she feels her sternum is enlarged. Notes bra is now tighter, had to go up a notch. Notes no weight gain. Review of Systems Constitutional: Negative. Respiratory: Negative. Cardiovascular: Negative. Endocrine: Negative. Objective BP 110/78 Pulse 68 Wt 58.5 kg (129 lb) SpO2 98% BMI 20.82 kg/m Physical Exam Vitals and nursing note reviewed. Constitutional: Appearance: Normal appearance. HENT: Head: Normocephalic and atraumatic. Mouth/Throat: Lips: Avella. Mouth: Mucous membranes are moist. Tongue: No lesions. Palate: No mass. Pharynx: Oropharynx is clear. Eyes: Conjunctiva/sclera: Conjunctivae normal. Neck: Thyroid: No thyroid mass or thyromegaly. Trachea: Trachea normal. Cardiovascular: Rate and Rhythm: Normal rate and regular rhythm. Heart sounds: Normal heart sounds. Abdominal: General: Bowel sounds are normal. Palpations: Abdomen is soft. Tenderness: There is abdominal tenderness (mild epigastric). Musculoskeletal: Right lower leg: No edema. Left lower leg: No edema. Lymphadenopathy: Cervical: Right cervical: No superficial or posterior cervical adenopathy. Left cervical: No superficial or posterior cervical adenopathy. Skin: General: Skin is warm and dry. Neurological: General: No focal deficit present. Mental Status: She is alert and oriented to person, place, and time. ALLERGIES Allergen Reactions Arimidex [Anastrozo* Rash Aromasin [Exemestan* Diarrhea Tamoxifen Rash Letrozole Rash MEDICATIONS multivit-min/vit C/herb no.124 (AIRBORNE GUMMY ORAL) Take by mouth. fluocinonide (LIDEX) 0.05 % cream Apply to affected area twice daily as needed (for areas of rash, limit to not more than 2 weeks use at a time.). varenicline (CHANTIX CONTINUING MONTH BOX) 1 mg tablet Take 1 tablet by mouth twice daily. PAST MEDICAL HISTORY Diagnosis Date Breast cancer (HCC) Diarrhea Malignant neoplasm of right breast in female, estrogen receptor positive (HCC) 03/06/2017 Mitral valve prolapse PVC (premature ventricular contraction) Smoker Social History Tobacco Use Smoking status: Current Some Day Smoker Packs/day: 0.50 Years: 12.00 Pack years: 6.00 Types: Cigarettes Smokeless tobacco: Never Used Tobacco comment: relapsed 10/2020 Vaping Use Vaping Use: Never used Substance Use Topics Alcohol use: Not Currently Comment: once a month, 1 drink Drug use: Not Currently Comment: History of remote cocaine use(as young adult) Component Latest Ref Rng & Units 05/22/2020 05/28/2020 WBC 3.70 - 11.00 k/uL 5.48 RBC 3.90 - 5.20 m/uL 4.65 Hemoglobin 11.5 - 15.5 g/dL 13.2 Hematocrit 36.0 - 46.0 % 39.7 MCV 80.0 - 100.0 fL 85.4 MCH 26.0 - 34.0 pG 28.4 MCHC 30.5 - 36.0 g/dL 33.2 RDW-CV 11.5 - 15.0 % 13.7 Platelet Count 150 - 400 k/uL 219 MPV 9.0 - 12.7 fL 8.4 (L) Neut% % 59.2 Abs Neut (ANC) 1.45 - 7.50 k/uL 3.23 Lymph% % 27.7 Abs Lymph 1.00 - 4.00 k/uL 1.52 Logan% % 7.1 Abs Logan <0.87 k/uL 0.39 Eosin% % 5.5 Abs Eosin <0.46 k/uL 0.30 Baso% % 0.5 Abs Baso <0.11 k/uL 0.03 Nucleated Reds 0 /100 WBC 0.0 Absolute nRBC <0.01 k/uL <0.01 Diff Type Auto Diff Protein, Total 6.3 - 8.0 g/dL 6.9 Albumin 3.9 - 4.9 g/dL 4.4 Calcium 8.5 - 10.2 mg/dL 9.8 Bilirubin, Total 0.2 - 1.3 mg/dL 0.3 Alkaline Phosphatase 34 - 123 U/L 72 AST 13 - 35 U/L 28 Glucose 74 - 99 mg/dL 92 BUN 7 - 21 mg/dL 17 Creatinine 0.58 - 0.96 mg/dL 0.79 Sodium 136 - 144 mmol/L 141 Potassium 3.7 - 5.1 mmol/L 4.1 Chloride 97 - 105 mmol/L 106 (H) CO2 22 - 30 mmol/L 27 Anion Gap 9 - 18 mmol/L 8 (L) ALT 7 - 38 U/L 14 eGFR- >60 eGFR-All Other Races . >60 Occult Blood, Stool Negative Negative TSH 0.270 - 4.200 uU/mL 2.740 ASSESSMENT/PLAN: 1. Globus sensation - ICD9: 306.4, ICD10: R09.89 (primary diagnosis) Start taking PPI for now Schedule with gastroenterology / general surgery, may need EGD to further evaluate - CONSULT TO GENERAL SURGERY - OMEPRAZOLE 20 MG CAPSULE,DELAYED RELEASE - CONSULT TO GASTROENTEROLOGY 2. Colon cancer screening - ICD9: V76.51, ICD10: Z12.11 Notes difficulty with colonoscopy in the past - FECAL OCCULT BLOOD TEST 3. Smoking - ICD9: 305.1, ICD10: F17.200 4. Tobacco use disorder - ICD9: 305.1, ICD10: F17.200 Feels her sternum is increased in size, no CP or back pain reported. CXR to further evauate Smoking cessation endorsed - She will try chantix; previous recall on Pfizer brand chantix. - XR CHEST 2V FRONTAL/LAT - CHANTIX STARTING MONTH BOX 0.5 MG (11)-1 MG (42) TABLETS IN DOSE PACK - VARENICLINE 1 MG TABLET 3-6 mo follow up MD Lorena Walton APRN.HOSTEL MANAGER Medical Decision Making: Problems: Low: Acute, uncomplicated illness or injury Moderate: 1+ chronic illnesses with change Data: Unique test(s) ordered: 2 Risk: Moderate: Drug management Medical Decision Making Level: 4 - Moderate documented in this encounterBlanchard Valley [facility]04-[facility] History of Present illness Narrative* Sarah Hutton Tech (Tech) - 05/22/2020 11:00 AM EDT Radiology Service Progress Note PATIENT NAME: Shakira Franklin DATE OF SERVICE: May 22, 2020 TIME: 10:55 AM PATIENT IDENTITY VERIFICATION COMPLETED USING TWO (2) IDENTIFIERS: Name and Date of confirmedby patient verbally. FALL SCREENING: Has the patient had 2 falls in the last year or 1 fall with injury or currently using an Ambulatory Assistive Device (Walker, Cane, Wheelchair, Crutches, etc.)? No PATIENT GENDER DATA: Female. status: : No status: NO. PATIENT RELEVANT IMPLANT DATA REVIEWED: Not Applicable RADIOLOGY DEPARTMENT: General X-ray: Exam(s) Completed: Chest X-Ray PERIPHERAL IV DATA: Not applicable SIGNED BY: Alexander Page May 22, 2020 10:55 AM documented in this encounterCleveland [id number] History of Past illness Narrative* Problem Noted Date Resolved Date Palpitations 05/21/2020 08/25/2021 Rash and nonspecific skin eruption 05/21/2020 08/25/2021 Strain of lumbar region 01/11/2019 05/22/19 21 Hyperopia 11/19/2014 08/25/2021 Presbyopia 11/19/2014 08/25/2021 Abdominal pain, epigastric 12/26/201208/25 Breast cancer 06/05/2012 05/21/2020 Lump or mass in breast 06/04/2012 6 Diarrhea 05/21/2020 documented as of this encounter (statuses as of 08/25/2021) [facility] History of Past illness Narrative* Problem Noted Date Resolved Date Palpitations 05/21/2020 08/25/2021 Rash and nonspecific skin eruption 05/21/2020 08/25/2021 Strain of lumbar region 01/11/2019 05/22/19 21 Hyperopia 11/19/2014 08/25/2021 Presbyopia 11/19/2014 08/25/2021 Abdominal pain, epigastric 12/26/201208/25 Breast cancer 06/05/2012 05/21/2020 Lump or mass in breast 06/04/2012 6 Diarrhea 05/21/2020 documented as of this encounter (statuses as of 09/02/2021) [facility] History of Past illness Narrative* Problem Noted Date Resolved Date Palpitations 05/21/2020 08/25/2021 Rash and nonspecific skin eruption 05/21/2020 08/25/2021 Strain of lumbar region 01/11/2019 05/22/19 21 Hyperopia 11/19/2014 08/25/2021 Presbyopia 11/19/2014 08/25/2021 Abdominal pain, epigastric 12/26/201208/25 Breast cancer 06/05/2012 05/21/2020 Lump or mass in breast 06/04/2012 6 Diarrhea 05/21/2020 documented as of this encounter (statuses as of 09/07/2021) [address]21 History of Past illness Narrative* Problem Noted Date Resolved Date Palpitations 05/21/2020 08/25/2021 Rash and nonspecific skin eruption 05/21/2020 08/25/2021 Strain of lumbar region 01/11/2019 05/22/19 21 Hyperopia 11/19/2014 08/25/2021 Presbyopia 11/19/2014 08/25/2021 Abdominal pain, epigastric 12/26/201208/25 Breast cancer 06/05/2012 05/21/2020 Lump or mass in breast 06/04/2012 6 Diarrhea 05/21/2020 documented as of this encounter (statuses as of 09/22/2021) [address]21 History of Past illness Narrative* Problem Noted Date Resolved Date Palpitations 05/21/2020 08/25/2021 Rash and nonspecific skin eruption 05/21/2020 08/25/2021 Strain of lumbar region 01/11/2019 05/22/19 21 Hyperopia 11/19/2014 08/25/2021 Presbyopia 11/19/2014 08/25/2021 Abdominal pain, epigastric 12/26/201208/25 Breast cancer 06/05/2012 05/21/2020 Lump or mass in breast 06/04/2012 6 Diarrhea 05/21/2020 documented as of this encounter (statuses as of 10/07/2021) [place] [address]-08-2021 History of Past illness Narrative* Problem Noted Date Resolved Date Palpitations 05/21/2020 08/25/2021 Rash and nonspecific skin eruption 05/21/2020 08/25/2021 Strain of lumbar region 01/11/2019 05/22/19 21 Hyperopia 11/19/2014 08/25/2021 Presbyopia 11/19/2014 08/25/2021 Abdominal pain, epigastric 12/26/201208/25 Breast cancer 06/05/2012 05/21/2020 Lump or mass in breast 06/04/2012 6 Diarrhea 05/21/2020 documented as of this encounter (statuses as of 11/02/2021) [address]21 History of Past illness Narrative* Problem Noted Date Resolved Date Palpitations 05/21/2020 08/25/2021 Rash and nonspecific skin eruption 05/21/2020 08/25/2021 Strain of lumbar region 01/11/2019 05/22/19 21 Hyperopia 11/19/2014 08/25/2021 Presbyopia 11/19/2014 08/25/2021 Abdominal pain, epigastric 12/26/201208/25 Breast cancer 06/05/2012 05/21/2020 Lump or mass in breast 06/04/2012 6 Diarrhea 05/21/2020 documented as of this encounter (statuses as of 11/05/2021) [facility] History of Past illness Narrative* Problem Noted Date Resolved Date Palpitations 05/21/2020 08/25/2021 Rash and nonspecific skin eruption 05/21/2020 08/25/2021 Strain of lumbar region 01/11/2019 05/22/19 21 Hyperopia 11/19/2014 08/25/2021 Presbyopia 11/19/2014 08/25/2021 Abdominal pain, epigastric 12/26/201208/25 Breast cancer 06/05/2012 05/21/2020 Lump or mass in breast 06/04/2012 6 Diarrhea 05/21/2020 documented as of this encounter (statuses as of 11/09/2021) [facility] History of Past illness Narrative* Problem Noted Date Resolved Date Palpitations 05/21/2020 08/25/2021 Rash and nonspecific skin eruption 05/21/2020 08/25/2021 Strain of lumbar region 01/11/2019 05/22/19 21 Hyperopia 11/19/2014 08/25/2021 Presbyopia 11/19/2014 08/25/2021 Abdominal pain, epigastric 12/26/201208/25 Breast cancer 06/05/2012 05/21/2020 Lump or mass in breast 06/04/2012 6 Diarrhea 05/21/2020 documented as of this encounter (statuses as of 11/20/2021) [facility] History of Past illness Narrative* Problem Noted Date Resolved Date Palpitations 05/21/2020 08/25/2021 Rash and nonspecific skin eruption 05/21/2020 08/25/2021 Strain of lumbar region 01/11/2019 05/22/19 21 Hyperopia 11/19/2014 08/25/2021 Presbyopia 11/19/2014 08/25/2021 Abdominal pain, epigastric 12/26/201208/25 Breast cancer 06/05/2012 05/21/2020 Lump or mass in breast 06/04/2012 6 Diarrhea 05/21/2020 documented as of this encounter (statuses as of 11/23/2021) [facility] History of Past illness Narrative* Problem Noted Date Resolved Date Palpitations 05/21/2020 08/25/2021 Rash and nonspecific skin eruption 05/21/2020 08/25/2021 Strain of lumbar region 01/11/2019 05/22/19 21 Hyperopia 11/19/2014 08/25/2021 Presbyopia 11/19/2014 08/25/2021 Abdominal pain, epigastric 12/26/201208/25 Breast cancer 06/05/2012 05/21/2020 Lump or mass in breast 06/04/2012 6 Diarrhea 05/21/2020 documented as of this encounter (statuses as of 11/24/2021) [facility] History of Past illness Narrative* Problem Noted Date Resolved Date Palpitations 05/21/2020 08/25/2021 Rash and nonspecific skin eruption 05/21/2020 08/25/2021 Strain of lumbar region 01/11/2019 05/22/19 21 Hyperopia 11/19/2014 08/25/2021 Presbyopia 11/19/2014 08/25/2021 Abdominal pain, epigastric 12/26/201208/25 Breast cancer 06/05/2012 05/21/2020 Lump or mass in breast 06/04/2012 6 Diarrhea 05/21/2020 documented as of this encounter (statuses as of 12/31/2021) [facility] History of Past illness Narrative* Problem Noted Date Resolved Date Palpitations 05/21/2020 08/25/2021 Rash and nonspecific skin eruption 05/21/2020 08/25/2021 Strain of lumbar region 01/11/2019 05/22/19 21 Hyperopia 11/19/2014 08/25/2021 Presbyopia 11/19/2014 08/25/2021 Abdominal pain, epigastric 12/26/201208/25 Breast cancer 06/05/2012 05/21/2020 Lump or mass in breast 06/04/2012 6 Diarrhea 05/21/2020 documented as of this encounter (statuses as of 01/12/2022) [address]08-2021 History of Past illness Narrative* Problem Noted Date Resolved Date Palpitations 05/21/2020 08/25/2021 Rash and nonspecific skin eruption 05/21/2020 08/25/2021 Strain of lumbar region 01/11/2019 05/22/19 21 Hyperopia 11/19/2014 08/25/2021 Presbyopia 11/19/2014 08/25/2021 Abdominal pain, epigastric 12/26/201208/25 Breast cancer 06/05/2012 05/21/2020 Lump or mass in breast 06/04/2012 6 Diarrhea 05/21/2020 documented as of this encounter (statuses as of 01/14/2022) [address]08-2021 History of Past illness Narrative* Problem Noted Date Resolved Date Palpitations 05/21/2020 08/25/2021 Rash and nonspecific skin eruption 05/21/2020 08/25/2021 Strain of lumbar region 01/11/2019 05/22/19 21 Hyperopia 11/19/2014 08/25/2021 Presbyopia 11/19/2014 08/25/2021 Abdominal pain, epigastric 12/26/201208/25 Breast cancer 06/05/2012 05/21/2020 Lump or mass in breast 06/04/2012 6 Diarrhea 05/21/2020 documented as of this encounter (statuses as of 01/14/2022) [address]-2021 History of Past illness Narrative* Problem Noted Date Resolved Date Palpitations 05/21/2020 08/25/2021 Rash and nonspecific skin eruption 05/21/2020 08/25/2021 Strain of lumbar region 01/11/2019 05/22/19 21 Hyperopia 11/19/2014 08/25/2021 Presbyopia 11/19/2014 08/25/2021 Abdominal pain, epigastric 12/26/201208/25 Breast cancer 06/05/2012 05/21/2020 Lump or mass in breast 06/04/2012 6 Diarrhea 05/21/2020 documented as of this encounter (statuses as of 03/08/2022) [facility] History of Past illness Narrative* Problem Noted Date Resolved Date Palpitations 05/21/2020 08/25/2021 Rash and nonspecific skin eruption 05/21/2020 08/25/2021 Strain of lumbar region 01/11/2019 05/22/19 21 Hyperopia 11/19/2014 08/25/2021 Presbyopia 11/19/2014 08/25/2021 Abdominal pain, epigastric 12/26/201208/25 Breast cancer 06/05/2012 05/21/2020 Lump or mass in breast 06/04/2012 6 Diarrhea 05/21/2020 documented as of this encounter (statuses as of 03/08/2022) [facility] History of Past illness Narrative* Problem Noted Date Resolved Date Palpitations 05/21/2020 08/25/2021 Rash and nonspecific skin eruption 05/21/2020 08/25/2021 Strain of lumbar region 01/11/2019 05/22/19 21 Hyperopia 11/19/2014 08/25/2021 Presbyopia 11/19/2014 08/25/2021 Abdominal pain, epigastric 12/26/201208/25 Breast cancer 06/05/2012 05/21/2020 Lump or mass in breast 06/04/2012 6 Diarrhea 05/21/2020 documented as of this encounter (statuses as of 05/31/2022) [facility] History of Past illness Narrative* Problem Noted Date Diagnosed Date Resolved Date Palpitations 05/21/2020 08/25/2021 Rash and nonspecific skin eruption 05/21/2020 08/25/2021 Strain of lumbar region 01/11/2019 04/0 09/2020 Hyperopia 11/19/2014 08/25/2021 Presbyopia 11/19/2014 08/25/2021 Abdominal pain, epigastric 12/26/2012 0 08/25/2021 Breast cancer 06/05/2012 05/21/2020 Lump or mass in breast 06/04/201206/25 Diarrhea 05/21/2020 documented as of this encounter (statuses as of 09/30/2022) [address]08-2021 History of Past illness Narrative* Problem Noted Date Diagnosed Date Resolved Date Palpitations 05/21/2020 08/25/2021 Rash and nonspecific skin eruption 05/21/2020 08/25/2021 Strain of lumbar region 01/11/2019 04/0 09/2020 Hyperopia 11/19/2014 08/25/2021 Presbyopia 11/19/2014 08/25/2021 Abdominal pain, epigastric 12/26/2012 0 08/25/2021 Breast cancer 06/05/2012 05/21/2020 Lump or mass in breast 06/04/201206/25 Diarrhea 05/21/2020 documented as of this encounter (statuses as of 10/03/2022) [address]08-2021 History of Past illness Narrative* Problem Noted Date Diagnosed Date Resolved Date Palpitations 05/21/2020 08/25/2021 Rash and nonspecific skin eruption 05/21/2020 08/25/2021 Strain of lumbar region 01/11/2019 04/0 09/2020 Hyperopia 11/19/2014 08/25/2021 Presbyopia 11/19/2014 08/25/2021 Abdominal pain, epigastric 12/26/2012 0 08/25/2021 Breast cancer 06/05/2012 05/21/2020 Lump or mass in breast 06/04/201206/25 Diarrhea 05/21/2020 documented as of this encounter (statuses as of 12/18/2022) [address]08-2021 History of Past illness Narrative* Problem Noted Date Diagnosed Date Resolved Date Palpitations 05/21/2020 08/25/2021 Rash and nonspecific skin eruption 05/21/2020 08/25/2021 Strain of lumbar region 01/11/2019 04/0 09/2020 Hyperopia 11/19/2014 08/25/2021 Presbyopia 11/19/2014 08/25/2021 Abdominal pain, epigastric 12/26/2012 0 08/25/2021 Breast cancer 06/05/2012 05/21/2020 Lump or mass in breast 06/04/201206/25 Diarrhea 05/21/2020 documented as of this encounter (statuses as of 12/18/2022) [address]08-2021 History of Past illness Narrative* Problem Noted Date Diagnosed Date Resolved Date Palpitations 05/21/2020 08/25/2021 Rash and nonspecific skin eruption 05/21/2020 08/25/2021 Strain of lumbar region 01/11/2019 04/0 09/2020 Hyperopia 11/19/2014 08/25/2021 Presbyopia 11/19/2014 08/25/2021 Abdominal pain, epigastric 12/26/2012 0 08/25/2021 Breast cancer 06/05/2012 05/21/2020 Lump or mass in breast 06/04/201206/25 Diarrhea 05/21/2020 documented as of this encounter (statuses as of 12/18/2022) [address]08-2021 History of Past illness Narrative* Problem Noted Date Diagnosed Date Resolved Date Palpitations 05/21/2020 08/25/2021 Rash and nonspecific skin eruption 05/21/2020 08/25/2021 Strain of lumbar region 01/11/2019 04/0 09/2020 Hyperopia 11/19/2014 08/25/2021 Presbyopia 11/19/2014 08/25/2021 Abdominal pain, epigastric 12/26/2012 0 08/25/2021 Breast cancer 06/05/2012 05/21/2020 Lump or mass in breast 06/04/201206/25 Diarrhea 05/21/2020 documented as of this encounter (statuses as of 12/18/2022) [address]08-2021 History of Past illness Narrative* Problem Noted Date Diagnosed Date Resolved Date Palpitations 05/21/2020 08/25/2021 Rash and nonspecific skin eruption 05/21/2020 08/25/2021 Strain of lumbar region 01/11/2019 04/0 09/2020 Hyperopia 11/19/2014 08/25/2021 Presbyopia 11/19/2014 08/25/2021 Abdominal pain, epigastric 12/26/2012 0 08/25/2021 Breast cancer 06/05/2012 05/21/2020 Lump or mass in breast 06/04/201206/25 Diarrhea 05/21/2020 documented as of this encounter (statuses as of 12/18/2022) [address]08-2021 History of Past illness Narrative* Problem Noted Date Diagnosed Date Resolved Date Palpitations 05/21/2020 08/25/2021 Rash and nonspecific skin eruption 05/21/2020 08/25/2021 Strain of lumbar region 01/11/2019 04/0 09/2020 Hyperopia 11/19/2014 08/25/2021 Presbyopia 11/19/2014 08/25/2021 Abdominal pain, epigastric 12/26/2012 0 08/25/2021 Breast cancer 06/05/2012 05/21/2020 Lump or mass in breast 06/04/201206/25 Diarrhea 05/21/2020 documented as of this encounter (statuses as of 03/23/2023) [address]08-2021 History of Past illness Narrative* Problem Noted Date Diagnosed Date Resolved Date Palpitations 05/21/2020 08/25/2021 Rash and nonspecific skin eruption 05/21/2020 08/25/2021 Strain of lumbar region 01/11/2019 04/0 09/2020 Hyperopia 11/19/2014 08/25/2021 Presbyopia 11/19/2014 08/25/2021 Abdominal pain, epigastric 12/26/2012 0 08/25/2021 Breast cancer 06/05/2012 05/21/2020 Lump or mass in breast 06/04/201206/25 Diarrhea 05/21/2020 documented as of this encounter (statuses as of 04/03/2023) [address]08-2021 History of Past illness Narrative* Problem Noted Date Diagnosed Date Resolved Date Palpitations 05/21/2020 08/25/2021 Rash and nonspecific skin eruption 05/21/2020 08/25/2021 Strain of lumbar region 01/11/2019 04/0 09/2020 Hyperopia 11/19/2014 08/25/2021 Presbyopia 11/19/2014 08/25/2021 Abdominal pain, epigastric 12/26/2012 0 08/25/2021 Breast cancer 06/05/2012 05/21/2020 Lump or mass in breast 06/04/201206/25 Diarrhea 05/21/2020 documented as of this encounter (statuses as of 04/27/2023) [facility] History of Past illness Narrative* Problem Noted Date Resolved Date Strain of lumbar region 01/11/2019 05/22/19 21 Breast cancer 06/05/2012 05/21/2020 Lump or mass in breast 06/04/2012 6 Diarrhea 05/21/2020 documented as of this encounter (statuses as of 05/31/2021) [facility] History of Past illness Narrative* Problem Noted Date Resolved Date Strain of lumbar region 01/11/2019 05/22/19 21 Breast cancer 06/05/2012 05/21/2020 Lump or mass in breast 06/04/2012 6 Diarrhea 05/21/2020 documented as of this encounter (statuses as of 07/10/2021) [facility] History of Past illness Narrative* Problem Noted Date Resolved Date Strain of lumbar region 01/11/2019 05/22/19 21 Breast cancer 06/05/2012 05/21/2020 Lump or mass in breast 06/04/2012 6 Diarrhea 05/21/2020 documented as of this encounter (statuses as of 07/20/2021) [facility] May 30, 2022 9:33am Note Date/Time May 30, 2022 8:5 6am [facility] Medical Records Department [address] [place] [address] Emergency Department Summary 05/30/22 MR#: [id number] Acct: [id number] Name: SHAKIRA FRANKLIN Rep #:[id number] : [id number] 61 From: Shelton Hendrickson MD PCP: Dr. Christiano Wooten MD Status:R EG ER Location: ED HPI History of Present Illness Chief Complaint: Chest Pain Detail of Chief Complaint: Chest pain, dyspnea, urologic symptoms Informant: patient Onset/Context/Timing Onset: Today (The chest discomfort and shortness of breath started at 0430.) andWeeks (Patient not felt well for approximately 1 week and has noted bubbling of her urine for the past several days) Context: Sudden Onset Timing: Continuous Quality: Sense of unwellness, chest discomfort that is described as dull and pleurit Location: Central chest and generalized Current Severity: Mild Maximum Severity: Moderate Worsened by: Nothing specific Relieved by: Nothing Associated Symptoms Associated Symptoms: Nausea without vomiting or diarrhea Narrative Narrative: Patient is a 61-year-old woman diagnosed with breast cancer in 2012 in a research study. Patient scheduled follow-up with her specialist since there wasa abnormality noted left breast. She states she was estrogen and HER2 positive. The chest discomfort started 0430 getting ready for work. Located in the center of her chest. Describes a dull discomfort. There is no radiation or associated symptoms. She does report shortness of breath. Nothing makes the shortness of breath worse. There is a pleuritic component as well to the chest pain. She denies fever, chills night sweats. She denies upper respiratory tract infectious symptoms. She denies dysuria but states that there is bubbling in her urine and its warm . She has not noted any blood. She does complain of some left lower back pain. There is no history of trauma. She denies headache, visual, ocular auditory symptoms. She denies history of renal ureterolithiasis. She denies history of PE or DVT. She does have history of breast cancer and states there is a new abnormality noted left breast which needs further investigation. Prior similar symptoms: No Recent Illness/Hospitalization: No PFSH PFSH Medical History Breast CA COPD (chronic obstructive pulmonary disease) GERD (gastroesophageal reflux disease) Home Medications biotin 1 mg capsule 2 mg PO QWEEK 03/06/17 [History Last Taken Unknown] mv-min-vit F-ywyn-opnlvs tammy-herb #124 250 mg-12.5 mg chewable tablet (Airborne (with lysine acetate)) 1 ea PO PRN PRN Not Specified 03/06/17 [History Last Taken Unknown] varenicline 0.5 mg tablet 0.5 mg PO BID 07/08/21 [History Last Taken Unknown] albuterol sulfate 90 mcg/actuation aerosol inhaler (Ventolin HFA) 1 - 2 puff inhalation Q4H PRN PRN Wheezing ##1 07/28/21 [Rx Last Taken Unknown] Allergy/AdvReac Type Severity Reaction Status Date / Time anastrozole [From Arimidex] Allergy Unknown Verified 05/30/22 08:24 exemestane [From Aromasin] Allergy Unknown Verified 05/30/22 08:24 letrozole Allergy Unknown Verified 05/30/22 08:24 tamoxifen Allergy Unknown Verified 05/30/22 08:24 Family History Sister Colon cancer Anemia Father Anemia Myocardial infarction Father Bowel disease Heart disease Surgical History H/O total hysterectomy Hx of mastectomy Social History (Updated 05/30/22 @ 08:[address] Shelton Hendrickson MD) Smoking Status: Former smoker quit date: 05/14/21 substance use type: does not use ROS ROS ED Constitutional Constitutional ED: Reports other Details: Patient states her normal weight is 117. She now weighs 150. ; Denies chills, fever(s), subjective, sweats or weight loss Eyes Eyes: Denies blurry vision, change in vision or diplopia ENT ENT ED: Denies ear pain, rhinorrhea or sore throat Cardiovascular Cardiovascular: Reports chest pain and palpitations; Denies orthopnea, paroxysmal nocturnal dyspnea or racing heartbeat Respiratory/Chest Respiratory/Chest: Reports dyspnea; Denies cough, dyspnea on exertion, orthopneaor paroxysmal nocturnal dyspnea Gastrointestinal Gastrointestinal: Reports nausea; Denies abdominal pain, diarrhea or vomiting Genitourinary Genitourinary ED: Denies dysuria, hematuria or urinary frequency Musculoskeletal Musculoskeletal: Reports back pain; Denies arthralgias, myalgias or neck pain Integumentary Denies abscess, Abrasions or rash Neurologic Neurologic: Denies headache(s), paresthesias or weakness Endocrine Endocrinology: Denies cold intolerance or heat intolerance Hematologic/Lymphatic Hematologic/Lymphatic: Reports systems reviewed and no addt'l complaints, exceptas documented EXAM Physical Exam Narrative Exam Narrative: Vital signs are markable for slightly elevated blood pressure. Const Vital Signs: 05/30/22 08:23 05/30/22 08:56 Temperature 97.3 F L Temperature Source Temporal Pulse Rate 67 Respiratory Rate 14 Respiratory Effort Normal Non-Labored Blood Pressure 150/64 H Blood Pressure Mean 92 Pulse Ox 97 Oxygen Delivery Method Room Air Positive well nourished and well developed General Appearance ED: well developed and NAD; Negative for cyanotic, diaphoretic or pallor HEENT Reports moist mucous membranes HEENT Narrative: Head is atraumatic normocephalic. Ears normal. Nares patent. Uvula midline. No abnormality the posterior pharynx. Eyes PERRL Neck no lymphadenopathy, supple and no JVD Chest Wall inspection of chest normal and palpation of chest normal Resp normal respiratory effort and clear to auscultation bilaterally Cardio regular rate, regular rhythm, S1 normal heart sound, S2 normal heart sound and no murmurs GI normal to inspection, nondistended, normoactive bowel sounds, non-tender, non-distended and no masses; Negative for hepatosplenomegaly Back/Spine no CVA tenderness Thoracic Spine / Upper Back: Negative for thoracic spinal tenderness Lumbar Spine / Lower Back: Negative for lumbar spinal tenderness Extremity normal to inspection Extremity Narrative: There is no asymmetry, swelling, discoloration, leg vein distention, palpable cords or tenderness along the distribution of the deep venous system. General Extremety ED: Negative for edema or tenderness General Extremity: Negative for edema Neuro oriented x3, CN's II-XII intact bilaterally and no sensory deficits noted Sensorium / Orientation: alert Psych mental status grossly normal Skin no rashes or lesions noted, no wounds and skin turgor normal General Skin Exam: Negative for jaundice or pallor MDM MDM MDM Narrative Medical decision making narrative: AndWith complaint of chest pain that has a pleuritic component and history of breast cancer with an apparent new left breast lesion shortness of breath we will obtain D-dimer to screen for possible PE as well as chest x-ray. EKG was obtained to assess for cardiac ischemia. Troponin was obtained to evaluate if pain is due to cardiac etiology. Since she complains of urologic symptoms UA was ordered. CBC to assess white count and differential as well as H&H. BMP toassess renal function. History & Record Review Additional record(s) reviewed:: Prior outpatient record (Outside records indicate patient has stage IIIb right breast cancer. Patient is in an experimental trial.) and Prior ED visit (Minimal ER records for minor complaints.) Lab Data Attestation: I reviewed the patient's lab results. Lab results narrative: CBC is unremarkable. UA macro is positive for leukoesterase only and slightly cloudy. Basic metabolic panel is unremarkable. Chloride is slightly evaded 108. D-dimer is less than 0.2's. Troponin is normal with 5 hours of pain. UA reveals pyuria without bacteria. Per recent department meeting and review ofthe literature blood culture was ordered and no antibiotics were started. Labs: Laboratory Results - last 24 hr 05/30/22 05/30/22 05/30/22 08:40 08:40 08:40 WBC 5.3 RBC 4.45 Hgb 12.4 Hct 39.2 MCV 88.1 MCH 27.9 MCHC 31.6 L RDW Std Deviation 41.1 RDW Coeff of Rylee 12.7 Plt Count 172 MPV 9.0 Immature Gran % (Auto) 0.400 Neut % (Auto) 64.2 Lymph % (Auto) 24.8 [place] % (Auto) 6.4 Eos % (Auto) 3.8 Baso % (Auto) 0.4 Absolute Neuts (auto) 3.4 Absolute Lymphs (auto) 1.31 Nucleated RBC % 0 D-Dimer Quant (PE/DVT) Sodium 139 Potassium 3.7 Chloride 108 H Carbon Dioxide 25.0 Anion Gap 6 BUN 13 Creatinine 0.99 Estim Creat Clear Calc 54.45 Est GFR (MDRD) Af Amer 73 Est GFR (MDRD) Non-Af 60 BUN/Creatinine Ratio 13.2 Glucose 103 Calcium 9.4 Troponin I High Sens 9 Urine Color Yellow Urine Clarity Sl. Cloudy Urine pH 7.0 Ur Specific [place] 1.010 Urine Protein Negative Urine Glucose (UA) Normal Urine Ketones Negative Urine Occult Blood Negative Urine Nitrite Negative Urine Bilirubin Negative Urine Urobilinogen Normal Ur Leukocyte Esterase 100 H Urine RBC 0 SEEN Urine WBC 10-25 SEEN Ur Squamous Epith Cells 0-5 SEEN Urine Bacteria 0 SEEN Urine Mucus 0 SEEN 05/30/22 08:40 WBC RBC Hgb Hct MCV MCH MCHC RDW Std Deviation RDW Coeff of [place] Plt Count MPV Immature Gran % (Auto) Neut % (Auto) Lymph % (Auto) [place] % (Auto) Eos % (Auto) Baso % (Auto) Absolute Neuts (auto) Absolute Lymphs (auto) Nucleated RBC % D-Dimer Quant (PE/DVT) < 0.27 L Sodium Potassium Chloride Carbon Dioxide Anion Gap BUN Creatinine Estim Creat Clear Calc Est GFR (MDRD) Af Amer Est GFR (MDRD) Non-Af BUN/Creatinine Ratio Glucose Calcium Troponin I High Sens Urine Color Urine Clarity Urine pH Ur Specific [place] Urine Protein Urine Glucose (UA) Urine Ketones Urine Occult Blood Urine Nitrite Urine Bilirubin Urine Urobilinogen Ur Leukocyte Esterase Urine RBC Urine WBC Ur Squamous Epith Cells Urine Bacteria Urine Mucus Radiography Chest X-Ray - ED: 2 View and Read by ED Physician (Cardiac silhouette size unremarkable. Perihilar region unremarkable. Lung parenchyma shows minimal chronic changes consistent with COPD. Osseous structures unremarkable.) EKG Initial EKG: Attestation: I personally reviewed and interpreted this EKG as follows: Interpretation: Sinus Rhythm (There are no ischemic findings with discomfort. Rate is 63. There is a short SC interval. SC interval is under 2 ms. Cures duration 76 ms. QT duration 402 ms. [place] is normal.) Differential Diagnosis Chest pain/SOB: pulmonary embolism Reason(s) PE less likely: Positive for D- Dimer negative, not tachycardic and not hypoxic, ACS ACS: Positive for no evidence of ACS based on cardiac biomarkers, EKG without ischemia and history not suggestive of ischemia pain, pneumothorax Reason(s) pneumothorax less likely: Positive for bilateral breath sounds and [employer] withhout PTX, aortic dissection Reason(s) Aortic dissection less likely:: Positive for normal vascular exam, no history of HTN, normal neurological exam, no significant risk factors for dissection, no widened mediastinum on CXR, pain not sudden onset, no ripping/tearing pain, no pain to back and other (D-dimer normal) and CHF Reason(s) CHF less likely: Positive for no significant peripheral edema, no orthopnea and no evidence of fluid overload on CXR Treatment and Re-Evaluation :: Patient was informed of results and was discharged to home. Discharge Plan Triage Chief Complaint: Chest Pain Other Complaint: Complaint ED Provider: Shelton Hendrickson Dx/Rx/DC Orders Clinical Impression: Central chest pain, Acute dyspnea, History of cancer of right breast, Pyuria Instructions: ED Chest Pain, Noncardiac, ED Dyspnea Prescriptions: No Action mv-min-vit C-Glu-Kym [id number] [Airborne (with lysine acetate)] 1 EACH tablet,chewable 1 ea PO PRN PRN (Reason: Not Specified) biotin 1 MG capsule 2 mg PO QWEEK varenicline [Chantix] 0.5 mg Tablet 0.5 mg PO BID albuterol sulfate [Ventolin HFA] 90 mcg/actuation HFA aerosol inhaler 1 - 2 puff inhalation Q4H PRN PRN (Reason: Wheezing) Qty: 1 0RF Primary Care Provider: Christiano Wooten Referrals: Christiano Wooten MD [Primary Care Provider] - 3-5 Days if not improving Disposition Disposition: Home, Self Care What to do if you have Problems For any increased pain, shortness of breath, bleeding, nausea or vomiting, chestpain, or any unexpected problems, contact your Primary Care Provider. Call [facility] ([phone]) or report to the closest Emergency Room. Call 911 if necessary. 05/30/22 [id number] <Electronically signed by Shelton Hendrickson MD> Cosigner Signature (if applicable): CC: Dr. Christiano Wooten MD ~ Signed [facility] Work Phone: Evaluation note* Diagnosis Sprain of lumbar region documented in this encounter [facility] note* Diagnosis Globus sensation- Primary Gastrointestinal malfunction arising from mental factors Colon cancer screening Special screening for malignant neoplasms, colon Smoking Tobacco use disorder Tobacco use disorder documented in this encounter [facility]No assessment [facility] Work Phone: [facility] note* Diagnosis Colitis presumed to be due to infection- Primary Colitis, enteritis, and gastroenteritis of presumed infectious origin Acute gastritis, presence of bleeding unspecified, unspecified gastritis type Viral URI Acute upper respiratory infections of unspecified site Diarrhea of presumed infectious origin Vomiting, unspecified vomiting type, unspecified whether nausea present documented in this encounter [facility] note* Diagnosis Pneumonia of left lower lobe due to infectious organism- Primary Wheezing Tobacco use disorder Need for vaccination Need for prophylactic vaccination and inoculation against unspecified single disease documented in this encounter [facility] note* Diagnosis Choking, sequela- Primary Throat dryness Other diseases of pharynx, not elsewhere classified Cough, unspecified type documented [facility] Diagnosis Wheezing documented in this [facility] Diagnosis Wheezing documented in this [facility] Diagnosis Laryngeal hyperfunction- Primary Other diseases of larynx Vocal cord edema Edema of larynx Hoarseness of voice Dysphonia documented in this encounter [facility] Diagnosis Choking on, sequela- Primary documented in this encounter [facility] Diagnosis Combined form of senile cataract of both eyes- Primary Retinal hole, right Hyperopia, bilateral Presbyopia documented in this encounter [facility] Diagnosis Hyperopia, bilateral- Primary Presbyopia documented in this encounter [facility] Diagnosis Hyperopia, bilateral- Primary Presbyopia documented in this encounter [facility] Diagnosis Malignant neoplasm of right breast in female, estrogen receptor positive, unspecified site of breast (HCC) Encounter for screening mammogram for high-risk patient documented in this encounter [facility] Diagnosis Hyperopia, bilateral- Primary Presbyopia documented [facility] Diagnosis Examination of participant in clinical trial- Primary documented in this encounter [facility] Diagnosis Personal history of breast cancer- Primary Personal history of malignant neoplasm of breast Pain of left clavicle Examination of participant in clinical trial documented in this encounter [facility] Diagnosis Urinary hesitancy- Primary Pelvic pain in female Unspecified symptom associated with female genital organs Screening for lipid disorders Encounter for screening mammogram for malignant neoplasm of breast Other screening mammogram Elevated blood pressure reading Elevated blood pressure reading without diagnosis of hypertension documented in this encounter [facility] Diagnosis Urinary hesitancy- Primary Pelvic pain in female Unspecified symptom associated with female genital organs documented in this encounter [facility]* Diagnosis Malignant neoplasm of right breast in female, estrogen receptor positive, unspecified site of breast (HCC) Abnormal mammogram of left breast documented in this encounter [facility] Diagnosis Abnormal mammogram Abnormal mammogram, unspecified documented in this encounter [facility] Diagnosis Abnormal mammogram Abnormal mammogram, unspecified documented in this encounter [facility] Diagnosis Urinary hesitancy Pelvic pain in female Unspecified symptom associated with female genital organs documented in this encounter [facility] Diagnosis Abnormal mammogram Abnormal mammogram, unspecified documented in this encounter [facility] Diagnosis Personal history of breast cancer- Primary Personal history of malignant neoplasm of breast Examination of participant in clinical trial documented in this encounter [facility]* Diagnosis Axillary pain, right- Primary Leg cramps Cramp of limb Elevated blood pressure reading Elevated blood pressure reading without diagnosis of hypertension Colon cancer screening Special screening for malignant neoplasms, colon documented in this encounter [facility]* Diagnosis Encounter for screening mammogram for malignant neoplasm of breast Other screening mammogram documented in this encounter [facility] Diagnosis Personal history of breast cancer- Primary Personal history of malignant neoplasm of breast Axillary pain, right Breast skin changes Changes in skin texture documented in this encounter [facility]* Diagnosis Personal history of breast cancer Personal history of malignant neoplasm of breast Axillary pain, right Breast skin changes Changes in skin texture documented in this encounter [facility]* Diagnosis Personal history of breast cancer Personal history of malignant neoplasm of breast Axillary pain, right Breast skin changes Changes in skin texture documented in this encounter [facility]* Diagnosis Left sided sciatica- Primary Sciatica documented in this encounter [facility] Diagnosis Acute left-sided low back pain with left-sided sciatica- Primary documented in this encounter [facility] Diagnosis Acute left-sided low back pain with left-sided sciatica- Primary Acute hip pain, left Acute pain of left lower extremity Acute hip pain, left Acute left-sided low back pain with left-sided sciatica documented in this encounter [facility]* Diagnosis Acute left-sided low back pain with left-sided sciatica documented in this encounter [facility] Diagnosis Acute left-sided low back pain with left-sided sciatica- Primary documented in this encounter [facility] Diagnosis Acute left-sided low back pain with left-sided sciatica- Primary Diarrhea, unspecified type Numbness and tingling of left lower extremity Weakness of left lower extremity Radiculopathy of lumbar region Thoracic or lumbosacral neuritis or radiculitis, unspecified Acute hip pain, left Left groin pain Abdominal pain, left lower quadrant History of breast cancer Personal history of malignant neoplasm of breast [facility] Diagnosis Acute hip pain, left Acute left-sided low back pain with left-sided sciatica documented in this encounter [facility] note* Diagnosis Numbness and tingling of left lower extremity Weakness of left lower extremity History of breast cancer Personal history of malignant neoplasm of breast Radiculopathy of lumbar region Thoracic or lumbosacral neuritis or radiculitis, unspecified documented in this encounter [facility] note* Diagnosis Left low back pain, unspecified chronicity, unspecified whether sciatica present- Primary Left leg pain Pain in limb Numbness and tingling of left lower extremity documented in this encounter [facility] note* Diagnosis Left leg pain [M79.605]- Primary Pain in limb documented in this encounter [facility] note* Diagnosis Acute left-sided low back pain with left-sided sciatica- Primary Numbness and tingling of left lower extremity Weakness of left lower extremity documented in this encounter [facility] note* Diagnosis Pneumonia of left lower lobe due to infectious organism Wheezing documented in this encounter [facility] note* Diagnosis Smoking Tobacco use disorder documented in this encounter [facility] note* Diagnosis Routine medical exam Routine general medical examination at a [facility] care facility Palpitations documented in this encounter [facility] note* Diagnosis Spinal stenosis, lumbar region, without neurogenic claudication- Primary documented in this encounter [facility] note* Diagnosis Chronic diarrhea- Primary Diarrhea Unintentional weight loss Loss of weight Colon cancer screening Special screening for malignant neoplasms, colon documented in this encounter [facility] note* Diagnosis Chronic diarrhea- Primary Diarrhea documented in this encounter [facility] note* Diagnosis Spinal stenosis, lumbar region, without neurogenic claudication- Primary documented in this encounter [facility] note* Diagnosis Spinal stenosis, lumbar region, without neurogenic claudication- Primary documented in this encounter [facility] note* Diagnosis Chronic diarrhea Diarrhea Colon cancer screening Special screening for malignant neoplasms, colon documented in this encounter [facility] note* Diagnosis 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, unspecified Disproportion of reconstructed breast documented in this encounter [facility] note* Diagnosis Recurrent breast cancer, right (HCC)- Primary LAD (lymphadenopathy) of left cervical region documented in this encounter [facility] note* Diagnosis Recurrent breast cancer, right (HCC) [facility] Diagnosis Malignant neoplasm of upper-outer quadrant of right breast in female, estrogen receptor positive (HCC)- Primary Breast cancer metastasized to axillary lymph node, right (HCC) documented [facility] this [facility]* Diagnosis Chronic diarrhea- Primary Diarrhea Recurrent malignant neoplasm of right breast (HCC) documented in this encounter [facility]* Diagnosis Genetic testing- Primary Other investigation and testing for procreative management Recurrent breast cancer, right (HCC) documented in this encounter [facility] note* Diagnosis Recurrent breast cancer, right (HCC) [facility]* Diagnosis Recurrent breast cancer, right (HCC) documented in this encounter [facility] note* Diagnosis Recurrent breast cancer, right (HCC) LAD (lymphadenopathy) of left cervical region documented in this encounter [facility] note* Diagnosis Recurrent breast cancer, right (HCC) [facility]* Diagnosis 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)- Primary Lymphocytic colitis Other and unspecified noninfectious gastroenteritis and colitis documented in this encounter [facility]* Diagnosis 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 Secondary and unspecified malignant neoplasm of lymph nodes of axilla and upper limb documented in this encounter [facility]* Diagnosis Recurrent breast cancer, right (HCC)- Primary H/O right mastectomy documented in this encounter [facility] note* Diagnosis Chronic diarrhea- Primary Diarrhea Lymphocytic colitis Other and unspecified noninfectious gastroenteritis and colitis documented in this encounter [facility]* Diagnosis 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 Secondary and unspecified malignant neoplasm of lymph nodes of axilla and upper limb [facility] 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)- Primary [facility] Diagnosis Encounter for screening mammogram for high-risk patient- Primary [facility] Diagnosis 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)- Primary [facility] Diagnosis 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)- Primary [facility] Diagnosis Elevated blood pressure reading- Primary Elevated blood pressure reading without diagnosis of hypertension Anxiety Anxiety state, unspecified Dependent edema Edema documented in this encounter [facility]* Diagnosis 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)- Primary documented in this encounter [facility]* Diagnosis 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)- Primary documented in this encounter [facility] note* Diagnosis 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)- Primary documented in this encounter [facility]* Diagnosis 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)- Primary Lymphocytic colitis Other and unspecified noninfectious gastroenteritis and colitis documented in this encounter [facility]* Diagnosis 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)- Primary documented in this encounter [facility]* Diagnosis 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) Secondary and unspecified malignant neoplasm of lymph nodes of axilla and upper limb documented in this encounter [facility]* Diagnosis Diarrhea, unspecified type Malignant neoplasm of right breast in female, estrogen receptor positive, unspecified site of breast (HCC) documented in this encounter [facility] note* Diagnosis Onset Date Resolution Status Admit Date Diarrhea acute August 12 1:18pm GERD (gastroesophageal reflu x disease) acute August 12, 2024 1:18pm [facility] Work Phone: Reason for referral (narrative)* Outpatient Procedure (Routine) - Pending Review Specialty Diagnoses / Procedures Referred By Arvin rashid Referred To [facility] Diagnoses Wheezing Procedures LUNG VOLUMES Christiano Wooten MD [address] [place] [address] [facility] [address] [place] [id number] Referral ID Status Reason Start Date Expiration Date Visits Requested Visits Authorized [id number] Pending Review Auto-Generat ed Referral 08/25/2021 09/24/2022 1 1 * Outpatient Procedure (Routine) - Pending Review Specialty Diagnoses / Procedures Referred By Arvin rashid Referred To [facility] Diagnoses Wheezing Procedures SPIROMETRY - BASELINE AND POST DILATOR BRNCDILAT RSPSE SPMTRY PRE&POST-BRNCDILAT Christiano Hubbard MD [address] [place] [address] [facility] [address] [place] [address] Referral ID Status Reason Start Date Expiration Date Visits Requested Visits Authorized [id number] Pending Review Auto-Generat ed Referral 08/25/2021 09/24/2022 1 1 [facility] for referral (narrative)* Diagnostic Procedure Only (Routine) - Closed Specialty Diagnoses / Procedures Referred By Arvin rashid Referred To Contact [facility] Diagnoses Malignant neoplasm of right breast in female, estrogen receptor positive, unspecified site of breast (HCC) Encounter for screening mammogram for high-risk patient Procedures JANE SCREENING W QUINTON SCREENING DIGITAL BREAST TOMOSYNTHESIS BI SCREENING MAMMOGRAPHY BI 2-VIEW BREAST INC CAD Alea Langston APRN.CNP [address] [place] [address] [facility] [address] [place] [address] Referral ID Status Reason Start Date Expiration Date V isits Requested Visits Authorized [id number] Closed Auto-Generate d Referral 11/03/2021 11/03/2022 1 1 [facility] for referral (narrative)* Diagnostic Procedure Only (Routine) - Pending Review Specialty Diagnoses / Procedures Referred By Arvin rashid Referred To Contact XR IMAGING Diagnoses Personal history of breast cancer Pain of left clavicle Procedures XR CLAVICLE 2V LEFT RADEX CLAVICLE COMPLETE Alea Langston APRN.CNP [address] [place] [address] Xr Imaging Referral ID Status Reason Start Date Expiration Date Visits Requested Visits Authorized [id number] Pending Review Auto-Generat ed Referral 01/13/2022 02/12/2023 1 1 [facility] for referral (narrative)* Diagnostic Procedure Only (Routine) - Pending Review Specialty Diagnoses / Procedures Referred By Arvin rashid Referred To Contact [facility] Diagnoses Encounter for screening mammogram for malignant neoplasm of breast Procedures JANE SCREENING W QUINTON SCREENING DIGITAL BREAST TOMOSYNTHESIS BI SCREENING MAMMOGRAPHY BI 2-VIEW BREAST INC CAD Christiano Wooten MD [address] [place] [address] [facility] [address] [place] [address] Referral ID Status Reason Start Date Expiration Date Visits Requested Visits Authorized [id number] Pending Review Auto-Generat ed Referral 09/29/2022 10/29/2023 1 1 * Diagnostic Procedure Only (Routine) - Authorized Specialty Diagnoses / Procedures Referred By Arvin rashid Referred To Contact [facility] Diagnoses Urinary hesitancy Pelvic pain in female Procedures US FEMALE PELVIS TRANSABD LTD US PELVIC NONOBSTETRIC IMAGE DCMTN LIMITED/F/U Christiano Wooten MD [address] [place] [address] [facility] Referral ID Status Reason Start Date Expiration Date Visits Requested Visits Authorized [id number] Authorized Auto-Generat ed Referral 09/29/2022 10/29/2023 1 1 * Consult, Test, Treat (Routine) - Authorized Specialty Diagnoses / Procedures Referred By Arvin rashid Referred To Contact Gynecology Diagnoses Urinary hesitancy Pelvic pain in female Procedures CONSULT TO GYNECOLOGY OFFICE/OUTPATIENT NEW HIGH MDM 60-74 MINUTES Christiano Wooten MD [address] [place] [address] Referral ID Status Reason Start Date Expiration Date Visits Requested Visits Authorized [id number] Authorized PCP Requested Referral Auto-Generate d Referral 09/29/2022 09/29/2023 1 1 [facility] for referral (narrative)* Diagnostic Procedure Only (Routine) - Closed Specialty Diagnoses / Procedures Referred By Contac t Referred To Contact [facility] Diagnoses Urinary hesitancy Pelvic pain in female Procedures US FEMALE PELVIS TRANSVAG US TRANSVAGINAL Christiano Wooten MD [address] [place] [address] [place] [address] Referral ID Status Reason Start Date Expiration Date V isits Requested Visits Authorized [id number] Closed Auto-Generate d Referral 10/03/2022 02/12/2023 1 1 [facility] for referral (narrative)* Diagnostic Procedure Only (Routine) - Closed Specialty Diagnoses / Procedures Referred By Contac t Referred To Contact [facility] Diagnoses Abnormal mammogram Procedures US BREAST LTD LT US BREAST UNILAT INCL AXILLA LIMITED Miroslava Brooks APRN.PHARMACEUTICAL OFFICER [address] [place] [address] [facility] [address] [place] [address] Referral ID Status Reason Start Date Expiration Date V isits Requested Visits Authorized [id number] Closed Auto-Generate d Referral 12/17/2020 01/16/2022 1 1 [facility] for referral (narrative)* Diagnostic Procedure Only (Routine) - Closed Specialty Diagnoses / Procedures Referred By Contac t Referred To Contact [facility] Diagnoses Urinary hesitancy Pelvic pain in female Procedures US FEMALE PELVIS TRANSVAG US TRANSVAGINAL Christiano Wooten MD [address] [place] [address] [place] [address] Referral ID Status Reason Start Date Expiration Date V isits Requested Visits Authorized [id number] Closed Auto-Generate d Referral 10/03/2022 02/12/2023 1 1 * Diagnostic Procedure Only (Routine) - Closed Specialty Diagnoses / Procedures Referred By Contac t Referred To Contact [facility] Diagnoses Urinary hesitancy Pelvic pain in female Procedures US FEMALE PELVIS TRANSABD LTD US PELVIC NONOBSTETRIC IMAGE DCMTN LIMITED/F/U Christiano Wooten MD [address] [place] [address] [place] [address] Referral ID Status Reason Start Date Expiration Date V isits Requested Visits Authorized [id number] Closed Auto-Generate d Referral 09/29/2022 10/29/2023 1 1 [facility] for referral (narrative)* Diagnostic Procedure Only (Routine) - Closed Specialty Diagnoses / Procedures Referred By Contac t Referred To Contact [facility] Diagnoses Abnormal mammogram Procedures US BREAST LTD LT US BREAST UNI REAL TIME WITH IMAGE LIMITED Miroslava Brooks APRN.PHARMACEUTICAL OFFICER [address] [place] [address] [facility] [address] [place] [address] Referral ID Status Reason Start Date Expiration Date V isits Requested Visits Authorized [id number] Closed Auto-Generate d Referral 06/28/2022 01/28/2023 1 1 [facility] for referral (narrative)* Diagnostic Procedure Only (Routine) - Authorized Specialty Diagnoses / Procedures Referred By Contac t Referred To Contact BR IMAGING Diagnoses Personal history of breast cancer Axillary pain, right Breast skin changes Procedures US BREAST LTD RIGHT US BREAST UNI REAL TIME WITH IMAGE LIMITED Alea Langston APRN.PHARMACEUTICAL OFFICER [address] [place] [address] [facility] [address] [place] [address] Referral ID Status Reason Start Date Expiration Date Visits Requested Visits Authorized [id number] Authorized Auto-Generat ed Referral 07/11/2023 08/09/2024 1 1 * Diagnostic Procedure Only (Routine) - Authorized Specialty Diagnoses / Procedures Referred By Contac t Referred To Contact BR IMAGING Diagnoses Personal history of breast cancer Axillary pain, right Breast skin changes Procedures JANE DIAGNOSTIC RIGHT DIAGNOSTIC MAMMOGRAPHY COMPUTER-AIDED DETCJ [facility] Alea Langston APRN.PHARMACEUTICAL OFFICER [address] [place] [address] [facility] Imaging [address] [place] [address] Referral ID Status Reason Start Date Expiration Date Visits Requested Visits Authorized [id number] Authorized Auto-Generat ed Referral 07/11/2023 08/09/2024 1 1 [facility] for referral (narrative)* Diagnostic Procedure Only (Routine) - Closed Specialty Diagnoses / Procedures Referred By Contac t Referred To Contact BR IMAGING Diagnoses Personal history of breast cancer Axillary pain, right Breast skin changes Procedures US BREAST LTD RIGHT US BREAST UNI REAL TIME WITH IMAGE LIMITED Alea Langston APRN.PHARMACEUTICAL OFFICER [address] [place] [address] [facility] [address] [place] [address] Referral ID Status Reason Start Date Expiration Date V isits Requested Visits Authorized [id number] Closed Auto-Generate d Referral 07/11/2023 08/09/2024 1 1 [facility] for referral (narrative)* Diagnostic Procedure Only (Routine) - Closed Specialty Diagnoses / Procedures [facility] To Contact [facility] Diagnoses Personal history of breast cancer Axillary pain, right Breast skin changes Procedures JANE DIAGNOSTIC RIGHT DIAGNOSTIC MAMMOGRAPHY COMPUTER-AIDED [facility] Alea Langston APRN.PHARMACEUTICAL OFFICER [address] [place] [address] [facility] Imaging [address] [place] [address] Referral ID Status Reason Start Date Expiration Date V isits Requested Visits Authorized [id number] Closed Auto-Generate d Referral 07/11/2023 08/09/2024 1 1 [facility] for referral (narrative)* Diagnostic Procedure Only (Urgent) - Closed Specialty Diagnoses / Procedures Referred By Contac t Referred To Contact XR IMAGING Diagnoses Acute left-sided low back pain with left-sided sciatica Procedures XR LUMBAR GENERAL 3V AP/LAT/L5-S1 RADEX SPINE LUMBOSACRAL 2/3 VIEWS Cheryl Fisher ACID TREATER.PHARMACEUTICAL OFFICER [address] [place] [address] [place] [address] Referral ID Status Reason Start Date Expiration Date V isits Requested Visits Authorized [id number] Closed Auto-Generate d Referral 09/12/2023 10/11/2024 1 1 * Diagnostic Procedure Only (Urgent) - Closed Specialty Diagnoses / Procedures Referred By Contac t Referred To Contact XR IMAGING Diagnoses Acute hip pain, left Procedures XR HIP GENERAL 3V PELV/AP/LAT LEFT RADEX HIP UNILATERAL WITH PELVIS 2-3 VIEWS Cheryl Fisher ACID TREATER.PHARMACEUTICAL OFFICER [address] [place] [address] [place] [address] Referral ID Status Reason Start Date Expiration Date V isits Requested Visits Authorized [id number] Closed Auto-Generate d Referral 09/12/2023 10/11/2024 1 1 [facility] for referral (narrative)* Diagnostic Procedure Only (Urgent) - Closed Specialty Diagnoses / Procedures Referred By Contac t Referred To Contact XR IMAGING Diagnoses Acute left-sided low back pain with left-sided sciatica Procedures XR LUMBAR GENERAL 3V AP/LAT/L5-S1 RADEX SPINE LUMBOSACRAL 2/3 VIEWS Cheryl Fisher ACID TREATER.PHARMACEUTICAL OFFICER [address] [place] [address] [place] [address] Referral ID Status Reason Start Date Expiration Date V isits Requested Visits Authorized [id number] Closed Auto-Generate d Referral 09/12/2023 10/11/2024 1 1 * Diagnostic Procedure Only (Urgent) - Closed Specialty Diagnoses / Procedures Referred By Contac t Referred To Contact XR IMAGING Diagnoses Acute hip pain, left Procedures XR HIP GENERAL 3V PELV/AP/LAT LEFT RADEX HIP UNILATERAL WITH PELVIS 2-3 VIEWS Cheryl Fisher APRN.PHARMACEUTICAL OFFICER [address] [place] [address] [place] [address] Referral ID Status Reason Start Date Expiration Date V isits Requested Visits Authorized [id number] Closed Auto-Generate d Referral 09/12/2023 10/11/2024 1 1 [facility] for referral (narrative)* Outpatient Procedure (Routine) - New Request Specialty Diagnoses / Procedures Referred By Contac t Referred To Contact [facility] Diagnoses Left low back pain, unspecified chronicity, unspecified whether sciatica present Left leg pain Numbness and tingling of left lower extremity Procedures EMG(NEURO/NI) NERVE CONDUCTION STUDIES 9-10 STUDIES Cheryl Fisher APRN.PHARMACEUTICAL OFFICER [address] [place] [address] [facility] [address] [place] [address] Referral ID Status Reason Start Date Expiration Date Visits Requested Visits Authorized [id number] New Request Auto-Generat ed Referral 10/25/2023 10/24/2024 1 1 * Transition of Care (Routine) - Ref Not Required Specialty Diagnoses / Procedures Referred By Contac t Referred To Contact Pain Management Diagnoses Left low back pain, unspecified chronicity, unspecified whether sciatica present Left leg pain Numbness and tingling of left lower extremity Procedures CONSULT TO PAIN MGT Cheryl Fisher ACID TREATER.PHARMACEUTICAL OFFICER [address] [place] [address] Referral ID Status Reason Start Date Expiration Date Visits Requested Visits Authorized [id number] Ref Not Required PCP Requested Referral 10/25/2023 10/24/2024 1 1 [facility] for referral (narrative)No reason for referral information [facility] Work Phone: Reason for visit Narrative* Diagnostic Procedure Only (Routine) - Closed Specialty Diagnoses / Procedures Referred By Arvin rashid Referred To Contact BR IMAGING Diagnoses Malignant neoplasm of right breast in female, estrogen receptor positive, unspecified site of breast (HCC) Encounter for screening mammogram for high-risk patient Procedures JANE SCREENING W QUINTON SCREENING DIGITAL BREAST TOMOSYNTHESIS BI SCREENING MAMMOGRAPHY BI 2-VIEW BREAST INC [facility] Alea Langston, ACID TREATER.PHARMACEUTICAL OFFICER [address] [place] [address] [facility] [address] [place] [address] Referral ID Status Reason Start Date Expiration Date V isits Requested Visits Authorized [id number] Closed Auto-Generate d Referral 11/03/2021 11/03/2022 1 1 [facility] for visit Narrative* Diagnostic Procedure Only (Routine) - Closed Specialty Diagnoses / Procedures Referred By Arvin rashid Referred To Contact BR IMAGING Diagnoses Malignant neoplasm of right breast in female, estrogen receptor positive, unspecified site of breast (HCC) Abnormal mammogram of left breast Procedures JANE DIAGNOSTIC LT DIAGNOSTIC MAMMOGRAPHY COMPUTER-AIDED DETCJ [facility]I Alea Langston, ACID TREATER.PHARMACEUTICAL OFFICER [address] [place] [address] [facility] [address] [place] [address] Referral ID Status Reason Start Date Expiration Date V isits Requested Visits Authorized [id number] Closed Auto-Generate d Referral 11/23/2021 12/23/2022 1 1 [facility] for visit Narrative* Diagnostic Procedure Only (Routine) - Closed Specialty Diagnoses / Procedures Referred By Contac t Referred To Contact BR IMAGING Diagnoses Abnormal mammogram Procedures JANE DIAGNOSTIC LT DIAGNOSTIC MAMMOGRAPHY COMPUTER-AIDED DETCJ [facility] Miroslava Brooks, ACID TREATER.PHARMACEUTICAL OFFICER [address] [place] [address] [facility] [address] [place] [address] Referral ID Status Reason Start Date Expiration Date V isits Requested Visits Authorized [id number] Closed Auto-Generate d Referral 06/28/2022 01/28/2023 1 1 [facility] for visit Narrative* Diagnostic Procedure Only (Routine) - Closed Specialty Diagnoses / Procedures Referred By Arvin t Referred To Contact BR IMAGING Diagnoses Abnormal mammogram Procedures US BREAST LTD LT US BREAST UNILAT INCL AXILLA LIMITED Miroslava Brooks, ACID TREATER.PHARMACEUTICAL OFFICER [address] [place] [address] [facility] [address] [place] [address] Referral ID Status Reason Start Date Expiration Date V isits Requested Visits Authorized [id number] Closed Auto-Generate d Referral 12/17/2020 01/16/2022 1 1 [facility] for visit Narrative* Diagnostic Procedure Only (Routine) - Closed Specialty Diagnoses / Procedures Referred By Arvin t Referred To Contact BR IMAGING Diagnoses Encounter for screening mammogram for malignant neoplasm of breast Procedures JANE SCREENING W QUINTON SCREENING DIGITAL BREAST TOMOSYNTHESIS BI SCREENING MAMMOGRAPHY BI 2-VIEW BREAST INC Christiano Dominique MD [address] [place] [address] [facility] Imaging [address] [place] [address] Referral ID Status Reason Start Date Expiration Date V isits Requested Visits Authorized [id number] Closed Auto-Generate d Referral 09/29/2022 10/29/2023 1 1 [facility] for visit Narrative* Diagnostic Procedure Only (Routine) - Closed Specialty Diagnoses / Procedures Referred By Contac t Referred To Contact BR IMAGING Diagnoses Personal history of breast cancer Axillary pain, right Breast skin changes Procedures US BREAST LTD RIGHT US BREAST UNI REAL TIME WITH IMAGE LIMITED Alea Langston, ACID TREATER.PHARMACEUTICAL OFFICER [address] [place] [address] [facility] [address] [place] [address] Referral ID Status Reason Start Date Expiration Date V isits Requested Visits Authorized [id number] Closed Auto-Generate d Referral 07/11/2023 08/09/2024 1 1 [facility] for visit Narrative* Diagnostic Procedure Only (Routine) - Closed Specialty Diagnoses / Procedures Referred By Arvin t Referred To Contact BR IMAGING Diagnoses Personal history of breast cancer Axillary pain, right Breast skin changes Procedures JANE DIAGNOSTIC RIGHT DIAGNOSTIC MAMMOGRAPHY COMPUTER-AIDED DETCJ UNI Alea Langston, ACID TREATER.PHARMACEUTICAL OFFICER [address] [place] [address] [facility] [address] [place] [address] Referral ID Status Reason Start Date Expiration Date V isits Requested Visits Authorized [id number] Closed Auto-Generate d Referral 07/11/2023 08/09/2024 1 1 [facility] for visit Narrative* Diagnostic Procedure Only (Urgent) - Closed Specialty Diagnoses / Procedures Referred By Arvin rashid Referred To Contact XR IMAGING Diagnoses Acute hip pain, left Procedures XR HIP GENERAL 3V PELV/AP/LAT LEFT RADEX HIP UNILATERAL WITH PELVIS 2-3 VIEWS Cheryl Fisher, ACID TREATER.PHARMACEUTICAL OFFICER [address] [place] [address] [place] [address] Referral ID Status Reason Start Date Expiration Date V isits Requested Visits Authorized [id number] Closed Auto-Generate d Referral 09/12/2023 10/11/2024 1 1 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, unspecified Disproportion of reconstructed breast Procedures SC REVISION OF RECONSTRUCTED BREAST SC IMPLNT BIO IMPLNT FOR SOFT TISSUE REINFORCEMENT SC NERVE PEDICLE TRANSFER FIRST STAGE SC EXC NEUROMA CUTAN NRV SURGLY IDENTIFIABLE REVISION LEFT BREAST RECONSTRUCTION WITH IMPLANT EXCHANGE, ALLODERM, MASTOPEXY, EXPLORATION OF RIGHT AXILLA WITH EXCISION OF NEUROMA AND TARGETED MUSCLE REINNERVATION IMPLANTATION BIOLOGICAL IMPLANT(ACELLULAR DERMAL MATRIX)SOFT TISSUE REINFORCEMENT(E.G.BREAST,TRUNK) ADD-ON TRANSFER, NERVE PEDICLE, STAGE 1 EXCISION, NEUROMA, CUTANEOUS NERVE Diulus, Jaya Reza III, MD [address] [facility] [address] [place] [address] Phone: tel: fax: Referral ID Status Reason Start Date Expiration Date Visits Re quested Visits Authorized [id number] 03/14/2024 1 1 [facility] for visit Narrative* Imaging (Routine) - Closed Specialty Diagnoses / Procedures Referred By Arvin t Referred To Contact Radiology Diagnoses Recurrent breast cancer, right (HCC) Procedures Bilateral breast MR with and without contrast Radha Terry MD [address] [place] [address] Phone: tel: fax: Referral ID Status Reason Start Date Expiration Date Visits Re quested Visits Authorized [id number] Closed 04/10/2024 04/10/2025 1 1 [facility] for visit Narrative* Imaging (Routine) - Closed Specialty Diagnoses / Procedures Referred By Arvin t Referred To Contact Radiology Diagnoses Recurrent breast cancer, right (HCC) Procedures CT chest abdomen pelvis with contrast Radha Terry MD [address] [place] [address] Phone: tel: fax: Referral ID Status Reason Start Date Expiration Date Visits Re quested Visits Authorized [id number] Closed 04/10/2024 04/10/2025 1 1 [facility] for visit Narrative* Imaging (Routine) - Closed Specialty Diagnoses / Procedures Referred By Arvin t Referred To Contact Radiology Diagnoses Recurrent breast cancer, right (HCC) LAD (lymphadenopathy) of left cervical region Procedures CT soft tissue neck w IV contrast Radha Terry MD [address] [place] [address] Phone: tel: fax: Referral ID Status Reason Start Date Expiration Date Visits Re quested Visits Authorized [id number] Closed 04/10/2024 04/10/2025 1 1 [facility] N[facility]* Imaging (Routine) - Closed Specialty Diagnoses / Procedures Referred By Arvin t Referred To Contact Radiology Diagnoses Recurrent breast cancer, right (HCC) Procedures NM bone whole body Radha Terry MD [address] [facility] [address] [place] [address] Phone: tel: fax: Referral ID Status Reason Start Date Expiration Date Visits Re quested Visits Authorized [id number] Closed 04/10/2024 04/10/2025 1 1 [facility] Summary Purpose Family History No Family History Records Found Relationship Condition Age at Onset Recorded Date/T spring sister Malignant neoplasm of colon Unknown Anemia Unknown father Anemia Unknown Myocardial infarction Unknown father Disorder of intestine Unknown Cardiac disease Unknown Advance Directives No Advanced Directives Records FoundDocuments on File Type Date Recorded Patient Assisted Living Manager Expl anation Advance Directives and Livin g Will 06/26/2020 1:33 PM Documents on File Type Date Recorded Patient Assisted Living Manager Expl anation Advance Directive(s) 09/17/2019 8:32 AM Advance Directive(s) 09/10/2019 12:31 PM Advance Directive(s) 02/27/2017 11:18 AM Advance Directive(s) 10/05/2015 9:38 AM Advance Directive(s) 07/06/2012 3:06 PM Advance Directive Response Recorded Date/ Time Living Will Yes July 08, 2021 4 :13pm Power of Secretary Administrative Assistant Yes July 08, 2021 4:13pm Documents on File Type Date Recorded Patient Assisted Living Manager Expl anation Advance Directive(s) 09/17/2019 8:32 AM Advance Directive(s) 09/10/2019 12:31 PM Advance Directive(s) 02/27/2017 11:18 AM Advance Directive(s) 10/05/2015 9:38 AM Advance Directive(s) 07/06/2012 3:06 PM Documents on File Type Date Recorded Patient Assisted Living Manager Expl anation Advance Directive(s) 07/06/2012 3:06 PM Documents on File Type Date Recorded Patient Assisted Living Manager Expl anation Advance Directive(s) 07/06/2012 3:06 PM Advance Directive Response Recorded Date/ Time Living Will No May 30, 2022 8:56am Power of Secretary Administrative Assistant No Sherrie 17th, 20 23 8:56am Reason for Referral Status Reason Specialty Diagnoses / Procedures Referre d By Contact Referred To Contact Closed Radiology Diagnoses Sprain of lumbar region Procedures MR Lumbar Spine Without Contrast Mariam Do, DO [address] [place] [address] Specialty Diagnoses / Procedures Referred By Contac t Referred To Contact Gastroenterology Diagnoses Globus sensation Procedures CONSULT TO GASTROENTEROLOGY OFFICE/OUTPATIENT [facility] 60-74 MINUTES Lorena Claros, ACID TREATER.HOSTEL MANAGER [address] [place] [address] Referral ID Status Reason Start Date Expiration Date Visits Requested Visits Authorized [id number] Authorized PCP Requested Referral 05/31/2021 05/31/2022 1 1 Specialty Diagnoses / Procedures Referred By Contac t Referred To Contact General Surgery Diagnoses Globus sensation Procedures CONSULT TO GENERAL SURGERY OFFICE/OUTPATIENT [facility] 60-74 MINUTES Lorena Claros, ACID TREATER.HOSTEL MANAGER [address] [place] [address] Referral ID Status Reason Start Date Expiration Date Visits Requested Visits Authorized [id number] Authorized PCP Requested Referral 05/31/2021 05/31/2022 1 1 Specialty Diagnoses / Procedures Referred By Contac t Referred To Contact Ent - Otolaryngology Diagnoses Throat dryness Cough, unspecified type Procedures CONSULT TO ENT OFFICE/OUTPATIENT [facility] 60-74 MINUTES Sarah Jefferson APRN.PHARMACEUTICAL OFFICER [address] [facility] [place] [address] Referral ID Status Reason Start Date Expiration Date Visits Requested Visits Authorized [id number] Authorized PCP Requested Referral 09/02/2021 09/02/2022 1 1 Specialty Diagnoses / Procedures Referred By Contac t Referred To Contact XR IMAGING Diagnoses Choking, sequela Procedures XR MODIFIED BARIUM SWALLOW W SPEECH THERAPY RADIOLOGIC EXAM SWALLOW FUNCTION CONTRAST STUDY Sarah Jefferson APRN.PHARMACEUTICAL OFFICER [address] [place] [address] Xr Imaging Referral ID Status Reason Start Date Expiration Date Visits Requested Visits Authorized [id number] Authorized Auto-Generat ed Referral 09/02/2021 10/02/2022 1 1 Specialty Diagnoses / Procedures Referred By Contac t Referred To Contact [facility] Diagnoses Acute left-sided low back pain with left-sided sciatica Procedures CONSULT TO PHYSICAL THERAPY PHYSICAL THERAPY EVALUATION [facility] COMPLEX 45 MINS Naldo Peguero MD [address] [place] [address] [facility] [address] [place] [address] Referral ID Status Reason Start Date Expiration Date Visits Requested Visits Authorized [id number] Authorized Auto-Generat ed Referral 04/14/2023 04/12/2024 60 60 Specialty Diagnoses / Procedures Referred By Contac t Referred To Contact MR IMAGING Diagnoses Numbness and tingling of left lower extremity Weakness of left lower extremity History of breast cancer Radiculopathy of lumbar region Procedures MRI LUMBAR SPINE WO IVCON MRI SPINAL CANAL LUMBAR W/O CONTRAST MATERIAL Cheryl Fisher, ACID TREATER.PHARMACEUTICAL OFFICER [address] [place] [address] [place] [address] Referral ID Status Reason Start Date Expiration Date Visits Requested Visits Authorized [id number] Authorized Auto-Generat ed Referral 10/04/2023 11/02/2024 1 1 Specialty Diagnoses / Procedures Referred By Contac t Referred To Contact General Surgery Diagnoses Chronic diarrhea Colon cancer screening Procedures CONSULT TO GENERAL SURGERY OFFICE/OUTPATIENT [facility] 60 MINUTES Cheryl Fisher, ACID TREATER.PHARMACEUTICAL OFFICER [address] [place] [address] Referral ID Status Reason Start Date Expiration Date Visits Requested Visits Authorized [id number] Pending Review PCP Requested Referral 03/12/2024 03/12/2025 1 1 Chief Complaint and Reason for Visit Chief Complaint diarr Chief Complaint urinary symptoms Chief Complaint Admit Date CHRONIC DIARRHEA August 12, 2024 1:18 pm Reason for Visit Admit Date Diarrhea August 12, 2024 1:18 pm GERD (gastroesophageal reflux disease) J une 2024 1:18pm Additional Source Comments INFORMATION SOURCE (unrecogn ized section and content) DATE CREATED AUTHOR 08/07/2017 [facility] DATE CREATED AUTHOR AUTHOR'S ORGANIZ ATION 07/13/2020 [facility] DATE CREATED AUTHOR AUTHOR'S ORGANIZ ATION 07/15/2020 [facility] DATE CREATED AUTHOR AUTHOR'S ORGANIZ ATION 03/20/2021 [facility] DATE CREATED AUTHOR AUTHOR'S ORGANIZ ATION 04/11/2021 [facility] DATE CREATED AUTHOR AUTHOR'S ORGANIZ ATION 10/09/2021 [facility] DATE CREATED AUTHOR AUTHOR'S ORGANIZ ATION 10/23/2023 [facility] DATE CREATED AUTHOR AUTHOR'S ORGANIZ ATION 10/28/2023 [facility] DATE CREATED AUTHOR AUTHOR'S ORGANIZ ATION 05/05/2024 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) 2WK OV* Procedures OFFICE/OUTPATIENT ESTABLISHED MOD MDM 30 MIN EST COMPLEX Gloria Flowers, Radha [address] [place] [address] Phone: tel: fax: Michael Mackey DO [address] [place] [address] Phone: tel: fax: Referral ID Status Reason Start Date Expiration Date Visits Re quested Visits Authorized [id number] Closed 05/01/2024 02/12/2025 1 1 Reason Comments PT Discharge Specialty Diagnoses / Procedures Referred By Arvin rashid Referred To Contact [facility] Diagnoses Acute left-sided low back pain with left-sided sciatica Procedures CONSULT TO PHYSICAL THERAPY PHYSICAL THERAPY EVALUATION [facility] 45 MINS Naldo Peguero MD [address] [place] [address] [facility] [address] [place] [address] Referral ID Status Reason Start Date Expiration Date Visits Requested Visits Authorized [id number] Authorized Auto-Generat ed Referral 04/14/2023 04/12/2024 60 60 Reason Comments Physical Therapy Reason Comments PT Eval Reason Comments PT Progress Note Status Reason Specialty Diagnoses / Procedures Referre d By Contact Referred To Contact Closed Radiology Diagnoses Sprain of lumbar region Procedures MR Lumbar Spine Without Contrast Mariam Do DO [address] [place] [address] Reason Comments Throat Problem tightness x couple o f months Reason Comments Patient Update Reason Comments ED Follow-up [facility] 07/15. Food poison ing Reason Comments F/U 1 month Reason Comments Consult choking Specialty Diagnoses / Procedures Referred By Larisaac t Referred To Contact General Surgery Diagnoses Globus sensation Procedures CONSULT TO GENERAL SURGERY OFFICE/OUTPATIENT [facility] MDM 60-74 MINUTES Lorena Claros, CHAS.HOSTEL MANAGER [address] [place] [address] Referral ID Status Reason Start Date Expiration Date V isits Requested Visits Authorized [id number] Closed PCP Requested Referral 05/31/2021 05/31/2022 1 1 Reason Comments Spirometry Specialty Diagnoses / Procedures Referred By Arvin t Referred To Contact [facility] Diagnoses Wheezing Procedures SPIROMETRY - BASELINE AND POST DILATOR BRNCDILAT RSPSE SPMTRY PRE&POST-BRNCDILAT ADMN Christiano Wooten MD [address] [place] [address] [facility] [address] [place] [address] Referral ID Status Reason Start Date Expiration Date V isits Requested Visits Authorized [id number] Closed Auto-Generate d Referral 08/25/2021 09/24/2022 1 1 Specialty Diagnoses / Procedures Referred By Arvin t Referred To Contact [facility] Diagnoses Wheezing Procedures LUNG VOLUMES PLETHYSMOGRAPHY LUNG VOLUMES W/[place] [address] [place] [address] [facility] [address] [place] [address] Referral ID Status Reason Start Date Expiration Date V isits Requested Visits Authorized [id number] Closed Auto-Generate d Referral 09/02/2021 02/12/2022 1 1 Reason Comments New Patient Choking when talking , Specialty Diagnoses / Procedures Referred By Contac t Referred To Contact Ent - Otolaryngology Diagnoses Throat dryness Cough, unspecified type Procedures CONSULT TO ENT OFFICE/OUTPATIENT NEW HIGH MDM 60-74 MINUTES Sarah Jefferson APRN.PHARMACEUTICAL OFFICER [address] [facility] [place] [address] Referral ID Status Reason Start Date Expiration Date V isits Requested Visits Authorized [id number] Closed PCP Requested Referral 09/02/2021 09/02/2022 1 1 Reason Comments Speech Instrumental Swallow Eval Speech Discharge Specialty Diagnoses / Procedures Referred By Contac t Referred To Contact XR IMAGING Diagnoses Choking, sequela Procedures XR MODIFIED BARIUM SWALLOW W SPEECH THERAPY RADIOLOGIC EXAM SWALLOW FUNCTION CONTRAST STUDY Sarah Jefferson APRN.PHARMACEUTICAL OFFICER [address] [facility] [place] [address] Xr Imaging Referral ID Status Reason Start Date Expiration Date V isits Requested Visits Authorized [id number] Closed Auto-Generate d Referral 09/02/2021 10/02/2022 1 1 Reason Comments Blurred Vision Both Eyes Contact lens evaluation Reason Comments Contact Lens Follow Up Contact stuck in Left eye Reason Comments Contact Lens Follow Up Reason Comments Future Appointment Reason Comments Appointment Reason Comments Chest Pain Reason Comments UTI Reason Comments Orders Reason Comments Radiology US Specialty Diagnoses / Procedures Referred By Contac t Referred To Contact US IMAGING Diagnoses Urinary hesitancy Pelvic pain in female Procedures US FEMALE PELVIS TRANSABD LTD US PELVIC NONOBSTETRIC IMAGE DCMTN LIMITED/F/U Christiano Wooten MD [address] [place] [address] [place] [id number] Referral ID Status Reason Start Date Expiration Date V isits Requested Visits Authorized [id number] Closed Auto-Generate d Referral 09/29/2022 10/29/2023 1 1 Reason Comments Radiology US Specialty Diagnoses / Procedures Referred By Contac t Referred To Contact BR IMAGING Diagnoses Abnormal mammogram Procedures US BREAST LTD LT US BREAST UNI REAL TIME WITH IMAGE LIMITED Miroslava Brooks, ACID TREATER.PHARMACEUTICAL OFFICER [address] [place] [address] [facility] [address] [place] [address] Referral ID Status Reason Start Date Expiration Date V isits Requested Visits Authorized [id number] Closed Auto-Generate d Referral 06/28/2022 01/28/2023 1 1 Reason Comments Established Patient yearly ov Reason Comments Arm Pain RIGHT underarm tende d with swelling x 1.5 month, JESSE upper leg muscle cramps & elevated blood pressure Reason Comments Symptoms Reason Comments Established Patient Reason Comments Hip Pain left hip to groin mi grating into knee x 2 weeks Reason Comments Left Hip Pain left side hip and gr oin x over 1 week Reason Comments Follow Up Left sciatica Reason Comments Follow Up Left leg and hip celina n Reason Comments Patient Question Specialty Diagnoses / Procedures Referred By Arvin t Referred To Contact MR IMAGING Diagnoses Numbness and tingling of left lower extremity Weakness of left lower extremity History of breast cancer Radiculopathy of lumbar region Procedures MRI LUMBAR SPINE WO IVCON MRI SPINAL CANAL LUMBAR W/O CONTRAST MATERIAL Cheryl Fisher, ACID TREATER.PHARMACEUTICAL OFFICER [address] [place] [address] [place] [address] Referral ID Status Reason Start Date Expiration Date V isits Requested Visits Authorized [id number] Closed Auto-Generate d Referral 10/04/2023 11/02/2024 1 1 Reason Comments Follow Up Reason Comments Radiology XR Reason Comments Diarrhea X 1 month Reason Comments Consult COLONOSCOPY Specialty Diagnoses / Procedures Referred By Contac t Referred To Contact General Surgery / INITIAL DEPT Diagnoses Chronic diarrhea Colon cancer screening Procedures CONSULT TO GENERAL SURGERY OFFICE/OUTPATIENT NEW HIGH MDM 60 MINUTES OFFICE/OUTPATIENT ESTABLISHED MOD MDM 30 MIN Cheryl Fisher, ACID TREATER.PHARMACEUTICAL OFFICER [address] [place] [address] Phone: tel: fax: [place] [address] Referral ID Status Reason Start Date Expiration Date V isits Requested Visits Authorized [id number] Closed PCP Requested Referral 03/21/2024 02/12/2025 1 1 Reason Comments Cancer Treatment Planning Treatment plan judy Reason Comments Established Patient Reason Comments Discussion Breast cancer- RT ly mph nodes Reason Comments Follow-up Breast pain on both breast. Pain 07/23. Reason Onset Date Comments Results 04/26/2024 Reason Onset Date Comments Results 04/29/2024 Genetics Reason Comments Consult Specialty Diagnoses / Procedures Referred By Contac t Referred To Contact Radiation Oncology / RADIATION ONCOLOGY Diagnoses Local recurrence of cancer of right breast (HCC) Dr. Salomon same day if able for opinion on radiation to right axilla for right breast cancer recurrence Procedures NEW/CON UNKNOWN IF TREATED@[facility] Michael Mackey DO [address] [place] [address] Phone: tel: fax: Liz Salomon MD [address] [place] [address] Phone: tel: fax: Referral ID Status Reason Start Date Expiration Date Visits Re quested Visits Authorized [id number] Closed 05/01/2024 02/12/2025 1 1 Reason Comments Follow-up Treatment planning Reason Comments Follow Up Specialty Diagnoses / Procedures Referred By Contac t Referred To Contact General Surgery Diagnoses Lymphocytic colitis Procedures CONSULT TO GENERAL SURGERY OFFICE/OUTPATIENT [facility] HIGH MDM 60 MINUTES Michael Mackey DO [address] [place] [address] Phone: tel: fax: [place] [address] Referral ID Status Reason Start Date Expiration Date V isits Requested Visits Authorized [id number] Closed PCP Requested Referral 05/08/2024 02/12/2025 1 1 Reason Onset Date Comments Simulation Request Form 05/16/2024 Reason Comments Patient Education Reason Comments Patient Question Appointment Reason Comments Radiotherapy On-treatment Visit Reason Comments Medication Problem Medication Question Reason Comments Recheck Blood pressure Reason Onset Date Comments Refill Request 07/22/2024 Source Comments (unrecognize d section and content) In the event this informatio n is protected by the Federal Confidentiality of Alcohol and Drug Abuse Patient Records regulations: The Federal rules restrict any use of the information to criminally investigate or prosecute any alcohol or drug abuse patient.[facility] the event this information is protected by the Federal Confidentiality of Alcohol and Drug Abuse Patient Records regulations: The Federal rules restrict any use of the information to criminally investigate or prosecute any alcohol or drug abuse patient.[facility] the event this information is protected by the Federal Confidentiality of Alcohol and Drug Abuse Patient Records regulations: The Federal rules restrict any use of the information to criminally investigate or prosecute any alcohol or drug abuse patient.[facility] the event this information is protected by the Federal Confidentiality of Alcohol and Drug Abuse Patient Records regulations: The Federal rules restrict any use of the information to criminally investigate or prosecute any alcohol or drug abuse patient.[facility] the event this information is protected by the Federal Confidentiality of Alcohol and Drug Abuse Patient Records regulations: The Federal rules restrict any use of the information to criminally investigate or prosecute any alcohol or drug abuse patient.[facility]In the event this information is protected by the Federal Confidentiality of Alcohol and Drug Abuse Patient Records regulations: The Federal rules restrict any use of the information to criminally investigate or prosecute any alcohol or drug abuse patient.[facility]In the event this information is protected by the Federal Confidentiality of Alcohol and Drug Abuse Patient Records regulations: The Federal rules restrict any use of the information to criminally investigate or prosecute any alcohol or drug abuse patient.[facility]In the event this information is protected by the Federal Confidentiality of Alcohol and Drug Abuse Patient Records regulations: The Federal rules restrict any use of the information to criminally investigate or prosecute any alcohol or drug abuse patient.[facility]In the event this information is protected by the Federal Confidentiality of Alcohol and Drug Abuse Patient Records regulations: The Federal rules restrict any use of the information to criminally investigate or prosecute any alcohol or drug abuse patient.[facility]In the event this information is protected by the Federal Confidentiality of Alcohol and Drug Abuse Patient Records regulations: The Federal rules restrict any use of the information to criminally investigate or prosecute any alcohol or drug abuse patient.[facility]In the event this information is protected by the Federal Confidentiality of Alcohol and Drug Abuse Patient Records regulations: The Federal rules restrict any use of the information to criminally investigate or prosecute any alcohol or drug abuse patient.[facility]In the event this information is protected by the Federal Confidentiality of Alcohol and Drug Abuse Patient Records regulations: The Federal rules restrict any use of the information to criminally investigate or prosecute any alcohol or drug abuse patient.[facility] the event this information is protected by the Federal Confidentiality of Alcohol and Drug Abuse Patient Records regulations: The Federal rules restrict any use of the information to criminally investigate or prosecute any alcohol or drug abuse patient.[facility]In the event this information is protected by the Federal Confidentiality of Alcohol and Drug Abuse Patient Records regulations: The Federal rules restrict any use of the information to criminally investigate or prosecute any alcohol or drug abuse patient.[facility]In the event this information is protected by the Federal Confidentiality of Alcohol and Drug Abuse Patient Records regulations: The Federal rules restrict any use of the information to criminally investigate or prosecute any alcohol or drug abuse patient.[facility] HospitalIn the event this information is protected by the Federal Confidentiality of Alcohol and Drug Abuse Patient Records regulations: The Federal rules restrict any use of the information to criminally investigate or prosecute any alcohol or drug abuse patient.[facility] HospitalIn the event this information is protected by the Federal Confidentiality of Alcohol and Drug Abuse Patient Records regulations: The Federal rules restrict any use of the information to criminally investigate or prosecute any alcohol or drug abuse patient.[facility] HospitalIn the event this information is protected by the Federal Confidentiality of Alcohol and Drug Abuse Patient Records regulations: The Federal rules restrict any use of the information to criminally investigate or prosecute any alcohol or drug abuse patient.[facility] HospitalIn the event this information is protected by the Federal Confidentiality of Alcohol and Drug Abuse Patient Records regulations: The Federal rules restrict any use of the information to criminally investigate or prosecute any alcohol or drug abuse patient.[facility] HospitalIn the event this information is protected by the Federal Confidentiality of Alcohol and Drug Abuse Patient Records regulations: The Federal rules restrict any use of the information to criminally investigate or prosecute any alcohol or drug abuse patient.[facility] HospitalIn the event this information is protected by the Federal Confidentiality of Alcohol and Drug Abuse Patient Records regulations: The Federal rules restrict any use of the information to criminally investigate or prosecute any alcohol or drug abuse patient.[facility] HospitalIn the event this information is protected by the Federal Confidentiality of Alcohol and Drug Abuse Patient Records regulations: The Federal rules restrict any use of the information to criminally investigate or prosecute any alcohol or drug abuse patient.[facility] HospitalIn the event this information is protected by the Federal Confidentiality of Alcohol and Drug Abuse Patient Records regulations: The Federal rules restrict any use of the information to criminally investigate or prosecute any alcohol or drug abuse patient.[facility] HospitalIn the event this information is protected by the Federal Confidentiality of Alcohol and Drug Abuse Patient Records regulations: The Federal rules restrict any use of the information to criminally investigate or prosecute any alcohol or drug abuse patient.[facility] HospitalIn the event this information is protected by the Federal Confidentiality of Alcohol and Drug Abuse Patient Records regulations: The Federal rules restrict any use of the information to criminally investigate or prosecute any alcohol or drug abuse patient.[facility] HospitalIn the event this information is protected by the Federal Confidentiality of Alcohol and Drug Abuse Patient Records regulations: The Federal rules restrict any use of the information to criminally investigate or prosecute any alcohol or drug abuse patient.[facility] HospitalIn the event this information is protected by the Federal Confidentiality of Alcohol and Drug Abuse Patient Records regulations: The Federal rules restrict any use of the information to criminally investigate or prosecute any alcohol or drug abuse patient.[facility] HospitalIn the event this information is protected by the Federal Confidentiality of Alcohol and Drug Abuse Patient Records regulations: The Federal rules restrict any use of the information to criminally investigate or prosecute any alcohol or drug abuse patient.[facility] HospitalIn the event this information is protected by the Federal Confidentiality of Alcohol and Drug Abuse Patient Records regulations: The Federal rules restrict any use of the information to criminally investigate or prosecute any alcohol or drug abuse patient.[facility] HospitalIn the event this information is protected by the Federal Confidentiality of Alcohol and Drug Abuse Patient Records regulations: The Federal rules restrict any use of the information to criminally investigate or prosecute any alcohol or drug abuse patient.[facility] HospitalIn the event this information is protected by the Federal Confidentiality of Alcohol and Drug Abuse Patient Records regulations: The Federal rules restrict any use of the information to criminally investigate or prosecute any alcohol or drug abuse patient.[facility]In the event this information is protected by the Federal Confidentiality of Alcohol and Drug Abuse Patient Records regulations: The Federal rules restrict any use of the information to criminally investigate or prosecute any alcohol or drug abuse patient.[facility]In the event this information is protected by the Federal Confidentiality of Alcohol and Drug Abuse Patient Records regulations: The Federal rules restrict any use of the information to criminally investigate or prosecute any alcohol or drug abuse patient.[facility]In the event this information is protected by the Federal Confidentiality of Alcohol and Drug Abuse Patient Records regulations: The Federal rules restrict any use of the information to criminally investigate or prosecute any alcohol or drug abuse patient.[facility]In the event this information is protected by the Federal Confidentiality of Alcohol and Drug Abuse Patient Records regulations: The Federal rules restrict any use of the information to criminally investigate or prosecute any alcohol or drug abuse patient.[facility]In the event this information is protected by the Federal Confidentiality of Alcohol and Drug Abuse Patient Records regulations: The Federal rules restrict any use of the information to criminally investigate or prosecute any alcohol or drug abuse patient.[facility]In the event this information is protected by the Federal Confidentiality of Alcohol and Drug Abuse Patient Records regulations: The Federal rules restrict any use of the information to criminally investigate or prosecute any alcohol or drug abuse patient.[facility]In the event this information is protected by the Federal Confidentiality of Alcohol and Drug Abuse Patient Records regulations: The Federal rules restrict any use of the information to criminally investigate or prosecute any alcohol or drug abuse patient.[facility]In the event this information is protected by the Federal Confidentiality of Alcohol and Drug Abuse Patient Records regulations: The Federal rules restrict any use of the information to criminally investigate or prosecute any alcohol or drug abuse patient.[facility]In the event this information is protected by the Federal Confidentiality of Alcohol and Drug Abuse Patient Records regulations: The Federal rules restrict any use of the information to criminally investigate or prosecute any alcohol or drug abuse patient.[facility]In the event this information is protected by the Federal Confidentiality of Alcohol and Drug Abuse Patient Records regulations: The Federal rules restrict any use of the information to criminally investigate or prosecute any alcohol or drug abuse patient.[facility]In the event this information is protected by the Federal Confidentiality of Alcohol and Drug Abuse Patient Records regulations: The Federal rules restrict any use of the information to criminally investigate or prosecute any alcohol or drug abuse patient.[facility]In the event this information is protected by the Federal Confidentiality of Alcohol and Drug Abuse Patient Records regulations: The Federal rules restrict any use of the information to criminally investigate or prosecute any alcohol or drug abuse patient.[facility]In the event this information is protected by the Federal Confidentiality of Alcohol and Drug Abuse Patient Records regulations: The Federal rules restrict any use of the information to criminally investigate or prosecute any alcohol or drug abuse patient.[facility]In the event this information is protected by the Federal Confidentiality of Alcohol and Drug Abuse Patient Records regulations: The Federal rules restrict any use of the information to criminally investigate or prosecute any alcohol or drug abuse patient.[facility]In the event this information is protected by the Federal Confidentiality of Alcohol and Drug Abuse Patient Records regulations: The Federal rules restrict any use of the information to criminally investigate or prosecute any alcohol or drug abuse patient.[facility]In the event this information is protected by the Federal Confidentiality of Alcohol and Drug Abuse Patient Records regulations: The Federal rules restrict any use of the information to criminally investigate or prosecute any alcohol or drug abuse patient.[facility]In the event this information is protected by the Federal Confidentiality of Alcohol and Drug Abuse Patient Records regulations: The Federal rules restrict any use of the information to criminally investigate or prosecute any alcohol or drug abuse patient.[facility]In the event this information is protected by the Federal Confidentiality of Alcohol and Drug Abuse Patient Records regulations: The Federal rules restrict any use of the information to criminally investigate or prosecute any alcohol or drug abuse patient.[facility]In the event this information is protected by the Federal Confidentiality of Alcohol and Drug Abuse Patient Records regulations: The Federal rules restrict any use of the information to criminally investigate or prosecute any alcohol or drug abuse patient.[facility]In the event this information is protected by the Federal Confidentiality of Alcohol and Drug Abuse Patient Records regulations: The Federal rules restrict any use of the information to criminally investigate or prosecute any alcohol or drug abuse patient.[facility]In the event this information is protected by the Federal Confidentiality of Alcohol and Drug Abuse Patient Records regulations: The Federal rules restrict any use of the information to criminally investigate or prosecute any alcohol or drug abuse patient.[facility]In the event this information is protected by the Federal Confidentiality of Alcohol and Drug Abuse Patient Records regulations: The Federal rules restrict any use of the information to criminally investigate or prosecute any alcohol or drug abuse patient.[facility]In the event this information is protected by the Federal Confidentiality of Alcohol and Drug Abuse Patient Records regulations: The Federal rules restrict any use of the information to criminally investigate or prosecute any alcohol or drug abuse patient.[facility]In the event this information is protected by the Federal Confidentiality of Alcohol and Drug Abuse Patient Records regulations: The Federal rules restrict any use of the information to criminally investigate or prosecute any alcohol or drug abuse patient.[facility]In the event this information is protected by the Federal Confidentiality of Alcohol and Drug Abuse Patient Records regulations: The Federal rules restrict any use of the information to criminally investigate or prosecute any alcohol or drug abuse patient.[facility]In the event this information is protected by the Federal Confidentiality of Alcohol and Drug Abuse Patient Records regulations: The Federal rules restrict any use of the information to criminally investigate or prosecute any alcohol or drug abuse patient.[facility]In the event this information is protected by the Federal Confidentiality of Alcohol and Drug Abuse Patient Records regulations: The Federal rules restrict any use of the information to criminally investigate or prosecute any alcohol or drug abuse patient.[facility] HospitalIn the event this information is protected by the Federal Confidentiality of Alcohol and Drug Abuse Patient Records regulations: The Federal rules restrict any use of the information to criminally investigate or prosecute any alcohol or drug abuse patient.[facility] HospitalIn the event this information is protected by the Federal Confidentiality of Alcohol and Drug Abuse Patient Records regulations: The Federal rules restrict any use of the information to criminally investigate or prosecute any alcohol or drug abuse patient.[facility] HospitalIn the event this information is protected by the Federal Confidentiality of Alcohol and Drug Abuse Patient Records regulations: The Federal rules restrict any use of the information to criminally investigate or prosecute any alcohol or drug abuse patient.[facility] HospitalIn the event this information is protected by the Federal Confidentiality of Alcohol and Drug Abuse Patient Records regulations: The Federal rules restrict any use of the information to criminally investigate or prosecute any alcohol or drug abuse patient.[facility] the event this information is protected by the Federal Confidentiality of Alcohol and Drug Abuse Patient Records regulations: The Federal rules restrict any use of the information to criminally investigate or prosecute any alcohol or drug abuse patient.[facility] HospitalIn the event this information is protected by the Federal Confidentiality of Alcohol and Drug Abuse Patient Records regulations: The Federal rules restrict any use of the information to criminally investigate or prosecute any alcohol or drug abuse patient.[facility] HospitalIn the event this information is protected by the Federal Confidentiality of Alcohol and Drug Abuse Patient Records regulations: The Federal rules restrict any use of the information to criminally investigate or prosecute any alcohol or drug abuse patient.[facility] HospitalIn the event this information is protected by the Federal Confidentiality of Alcohol and Drug Abuse Patient Records regulations: The Federal rules restrict any use of the information to criminally investigate or prosecute any alcohol or drug abuse patient.[facility] HospitalIn the event this information is protected by the Federal Confidentiality of Alcohol and Drug Abuse Patient Records regulations: The Federal rules restrict any use of the information to criminally investigate or prosecute any alcohol or drug abuse patient.[facility] HospitalIn the event this information is protected by the Federal Confidentiality of Alcohol and Drug Abuse Patient Records regulations: The Federal rules restrict any use of the information to criminally investigate or prosecute any alcohol or drug abuse patient.[facility] HospitalIn the event this information is protected by the Federal Confidentiality of Alcohol and Drug Abuse Patient Records regulations: The Federal rules restrict any use of the information to criminally investigate or prosecute any alcohol or drug abuse patient.[facility] HospitalIn the event this information is protected by the Federal Confidentiality of Alcohol and Drug Abuse Patient Records regulations: The Federal rules restrict any use of the information to criminally investigate or prosecute any alcohol or drug abuse patient.[facility] HospitalIn the event this information is protected by the Federal Confidentiality of Alcohol and Drug Abuse Patient Records regulations: The Federal rules restrict any use of the information to criminally investigate or prosecute any alcohol or drug abuse patient.[facility] HospitalIn the event this information is protected by the Federal Confidentiality of Alcohol and Drug Abuse Patient Records regulations: The Federal rules restrict any use of the information to criminally investigate or prosecute any alcohol or drug abuse patient.[facility] HospitalIn the event this information is protected by the Federal Confidentiality of Alcohol and Drug Abuse Patient Records regulations: The Federal rules restrict any use of the information to criminally investigate or prosecute any alcohol or drug abuse patient.[facility] HospitalIn the event this information is protected by the Federal Confidentiality of Alcohol and Drug Abuse Patient Records regulations: The Federal rules restrict any use of the information to criminally investigate or prosecute any alcohol or drug abuse patient.[facility] HospitalIn the event this information is protected by the Federal Confidentiality of Alcohol and Drug Abuse Patient Records regulations: The Federal rules restrict any use of the information to criminally investigate or prosecute any alcohol or drug abuse patient.[facility] HospitalIn the event this information is protected by the Federal Confidentiality of Alcohol and Drug Abuse Patient Records regulations: The Federal rules restrict any use of the information to criminally investigate or prosecute any alcohol or drug abuse patient.[facility] HospitalIn the event this information is protected by the Federal Confidentiality of Alcohol and Drug Abuse Patient Records regulations: The Federal rules restrict any use of the information to criminally investigate or prosecute any alcohol or drug abuse patient.[facility] HospitalIn the event this information is protected by the Federal Confidentiality of Alcohol and Drug Abuse Patient Records regulations: The Federal rules restrict any use of the information to criminally investigate or prosecute any alcohol or drug abuse patient.[facility] HospitalIn the event this information is protected by the Federal Confidentiality of Alcohol and Drug Abuse Patient Records regulations: The Federal rules restrict any use of the information to criminally investigate or prosecute any alcohol or drug abuse patient.[facility] HospitalIn the event this information is protected by the Federal Confidentiality of Alcohol and Drug Abuse Patient Records regulations: The Federal rules restrict any use of the information to criminally investigate or prosecute any alcohol or drug abuse patient.[facility] HospitalIn the event this information is protected by the Federal Confidentiality of Alcohol and Drug Abuse Patient Records regulations: The Federal rules restrict any use of the information to criminally investigate or prosecute any alcohol or drug abuse patient.[facility] HospitalIn the event this information is protected by the Federal Confidentiality of Alcohol and Drug Abuse Patient Records regulations: The Federal rules restrict any use of the information to criminally investigate or prosecute any alcohol or drug abuse patient.[facility] HospitalIn the event this information is protected by the Federal Confidentiality of Alcohol and Drug Abuse Patient Records regulations: The Federal rules restrict any use of the information to criminally investigate or prosecute any alcohol or drug abuse patient.[facility] HospitalIn the event this information is protected by the Federal Confidentiality of Alcohol and Drug Abuse Patient Records regulations: The Federal rules restrict any use of the information to criminally investigate or prosecute any alcohol or drug abuse patient.[facility] HospitalIn the event this information is protected by the Federal Confidentiality of Alcohol and Drug Abuse Patient Records regulations: The Federal rules restrict any use of the information to criminally investigate or prosecute any alcohol or drug abuse patient.[facility] HospitalIn the event this information is protected by the Federal Confidentiality of Alcohol and Drug Abuse Patient Records regulations: The Federal rules restrict any use of the information to criminally investigate or prosecute any alcohol or drug abuse patient.[facility] HospitalIn the event this information is protected by the Federal Confidentiality of Alcohol and Drug Abuse Patient Records regulations: The Federal rules restrict any use of the information to criminally investigate or prosecute any alcohol or drug abuse patient.[facility] HospitalIn the event this information is protected by the Federal Confidentiality of Alcohol and Drug Abuse Patient Records regulations: The Federal rules restrict any use of the information to criminally investigate or prosecute any alcohol or drug abuse patient.[facility] HospitalIn the event this information is protected by the Federal Confidentiality of Alcohol and Drug Abuse Patient Records regulations: The Federal rules restrict any use of the information to criminally investigate or prosecute any alcohol or drug abuse patient.[facility] HospitalIn the event this information is protected by the Federal Confidentiality of Alcohol and Drug Abuse Patient Records regulations: The Federal rules restrict any use of the information to criminally investigate or prosecute any alcohol or drug abuse patient.[facility] Care Teams (unrecognized sec tion and content) Plating Stripper Relationship Specialty Start Date End Date Christiano Wooten MD [address] [place] [address] PCP - General Internal Medicine 05/21/20 Michael Mackey, DO [address] [place] [address] Attending Hematology/Oncology 08/21/13 Plating Stripper Relationship Specialty Start Date End Date Christiano Wooten MD [address] [place] [address] PCP - General Internal Medicine 05/21/20 Michael Mackey, DO [address] [place] [address] Attending Hematology/Oncology 08/21/13 Plating Stripper Relationship Specialty Start Date End Date Christiano Wooten MD [address] [place] [address] PCP - General Internal Medicine 05/21/20 Michael Mackey, DO [address] [place] [facility] [address] Attending Hematology/Oncology 08/21/13 Plating Stripper Relationship Specialty Start Date End Date Christiano Wooten MD [address] [place] [address] PCP - General Internal Medicine 05/21/20 Michael Mackey, DO [address] [place] [address] Attending Hematology/Oncology 08/21/13 Plating Stripper Relationship Specialty Start Date End Date Christiano Wooten MD [address] [place] [address] PCP - General Internal Medicine 05/21/20 Michael Mackey, DO [address] [place] [address] Attending Hematology/Oncology 08/21/13 Plating Stripper Relationship Specialty Start Date End Date Christiano Wooten MD [address] [place] [address] PCP - General Internal Medicine 05/21/20 Mihcael Mackey, DO [address] [place] [address] Attending Hematology/Oncology 08/21/13 Plating Stripper Relationship Specialty Start Date End Date Christiano Wooten MD [address] [place] [address] PCP - General Internal Medicine 05/21/20 Michael Mackey, DO [address] [place] [address] Attending Hematology/Oncology 08/21/13 Plating Stripper Relationship Specialty Start Date End Date Christiano Wooten MD [address] [place] [address] PCP - General Internal Medicine 05/21/20 Michael Mackey, DO [address] [place] [address] Attending Hematology/Oncology 08/21/13 Plating Stripper Relationship Specialty Start Date End Date Christiano Wooten MD [address] [place] [address] PCP - General Internal Medicine 05/21/20 Michael Mackey, DO [address] [place] [address] Attending Hematology/Oncology 08/21/13 Plating Stripper Relationship Specialty Start Date End Date Christiano Wooten MD [address] [place] [address] PCP - General Internal Medicine 05/21/20 Michael Mackey, DO [address] [place] [address] Attending Hematology/Oncology 08/21/13 Plating Stripper Relationship Specialty Start Date End Date Christiano Wooten MD [address] [place] [address] PCP - General Internal Medicine 05/21/20 Michael Mackey, DO [address] [place] [address] Attending Hematology/Oncology 08/21/13 Plating Stripper Relationship Specialty Start Date End Date Christiano Wooten MD [address] [place] [address] PCP - General Internal Medicine 05/21/20 Michael Mackey, DO [address] [place] [address] Attending Hematology/Oncology 08/21/13 Plating Stripper Relationship Specialty Start Date End Date Christiano Wooten MD [address] [place] [address] PCP - General Internal Medicine 05/21/20 Michael Mackey, DO [address] [place] [address] Attending Hematology/Oncology 08/21/13 Plating Stripper Relationship Specialty Start Date End Date Christiano Wooten MD [address] [place] [address] PCP - General Internal Medicine 05/21/20 Michael Mackey, DO [address] [place] [address] Attending Hematology/Oncology 08/21/13 Plating Stripper Relationship Specialty Start Date End Date Christiano Wooten MD [address] [place] [address] PCP - General Internal Medicine 05/21/20 Michael Mackey, DO [address] [place] [address] Attending Hematology/Oncology 08/21/13 Plating Stripper Relationship Specialty Start Date End Date Christiano Wooten MD [address] [place] [address] PCP - General Internal Medicine 05/21/20 Michael Mackey, DO [address] [place] [address] Attending Hematology/Oncology 08/21/13 Plating Stripper Relationship Specialty Start Date End Date Christiano Wooten MD [address] [place] [address] PCP - General Internal Medicine 05/21/20 Michael Mackey, DO [address] [place] [address] Attending Hematology/Oncology 08/21/13 Team Status: Active Member Role Status Dates No Primary Care Physician Family Provider Active Dr. Christiano Wooten MD Primary Care Provider Active Team Status: Inactive Member Role Status Dates Dr. Christiano Wooten MD Primary Care Provider Active Dr. Shelton Hendrickson MD Emergency Provider Active Plating Stripper Relationship Specialty Start Date End Date Christiano Wooten MD [address] [place] [address] PCP - General Internal Medicine 05/21/20 Michael Mackey DO [address] [place] [facility] [address] Attending Hematology/Oncology 08/21/13 Plating Stripper Relationship Specialty Start Date End Date Christiano Wooten MD [address] [place] [address] PCP - General Internal Medicine 05/21/20 Michael Mackey DO [address] [place] [facility] [address] Attending Hematology/Oncology 08/21/13 Plating Stripper Relationship Specialty Start Date End Date Christiano Wooten MD [address] [place] [address] PCP - General Internal Medicine 05/21/20 Michael Mackey DO [address] [place] [facility] [address] Attending Hematology/Oncology 08/21/13 Plating Stripper Relationship Specialty Start Date End Date Christiano Wooten MD [address] [place] [address] PCP - General Internal Medicine 05/21/20 Michael Mackey DO [address] [place] [address] Attending Hematology/Oncology 08/21/13 Plating Stripper Relationship Specialty Start Date End Date Christiano Wooten MD [address] [place] [address] PCP - General Internal Medicine 05/21/20 Michael Mackey DO [address] [place] [facility] [address] Attending Hematology/Oncology 08/21/13 Plating Stripper Relationship Specialty Start Date End Date Christiano Wooten MD [address] [facility] [address] PCP - General Internal Medicine 05/21/20 Michael Mackey DO [address] [place] [address] Attending Hematology/Oncology 08/21/13 Plating Stripper Relationship Specialty Start Date End Date Christiano Wooten MD [address] [place] [address] PCP - General Internal Medicine 05/21/20 Michael Mackey DO [address] [place] [address] Attending Hematology/Oncology 08/21/13 Plating Stripper Relationship Specialty Start Date End Date Christiano Wooten MD [address] [place] [address] PCP - General Internal Medicine 05/21/20 Michael Mackey DO [address] [place] [address] Attending Hematology/Oncology 08/21/13 Plating Stripper Relationship Specialty Start Date End Date Christiano Wooten MD [address] [place] [address] PCP - General Internal Medicine 05/21/20 Michael Mackey DO [address] [place] [address] Attending Hematology/Oncology 08/21/13 Plating Stripper Relationship Specialty Start Date End Date Christiano Wooten MD [address] [place] [address] PCP - General Internal Medicine 05/21/20 Michael Mackey DO [address] [place] [address] Attending Hematology/Oncology 08/21/13 Plating Stripper Relationship Specialty Start Date End Date Christiano Wooten MD [address] [place] [address] PCP - General Internal Medicine 05/21/20 Michael Mackey DO [address] [place] [address] Attending Hematology/Oncology 08/21/13 Plating Stripper Relationship Specialty Start Date End Date Christiano Wooten MD [address] [place] [address] PCP - General Internal Medicine 05/21/20 Michael Mackey DO [address] [place] [address] Attending Hematology/Oncology 08/21/13 Plating Stripper Relationship Specialty Start Date End Date Christiano Wooten MD [address] [place] [address] PCP - General Internal Medicine 05/21/20 Michael Mackey DO [address] [place] [address] Attending Hematology/Oncology 08/21/13 Plating Stripper Relationship Specialty Start Date End Date Christiano Wooten MD [address] [place] [address] PCP - General Internal Medicine 05/21/20 Michael Mackey DO [address] [place] [address] Attending Hematology/Oncology 08/21/13 Plating Stripper Relationship Specialty Start Date End Date Christiano Wooten MD [address] [place] [address] PCP - General Internal Medicine 05/21/20 Michael Mackey DO [address] [place] [address] Attending Hematology/Oncology 08/21/13 Plating Stripper Relationship Specialty Start Date End Date Christiano Wooten MD [address] [place] [address] PCP - General Internal Medicine 05/21/20 Michael Mackey DO [address] [place] [address] Attending Hematology/Oncology 08/21/13 Plating Stripper Relationship Specialty Start Date End Date Christiano Wooten MD [address] [place] [address] PCP - General Internal Medicine 05/21/20 Michael Mackey DO [address] [place] [address] Attending Hematology/Oncology 08/21/13 Plating Stripper Relationship Specialty Start Date End Date Christiano Wooten MD [address] [place] [address] PCP - General Internal Medicine 05/21/20 Michael Mackey DO [address] [place] [address] Attending Hematology/Oncology 08/21/13 Plating Stripper Relationship Specialty Start Date End Date Christiano Wooten MD [address] [place] [address] PCP - General Internal Medicine 05/21/20 Michael Mackey DO [address] [place] [address] Attending Hematology/Oncology 08/21/13 Plating Stripper Relationship Specialty Start Date End Date Christiano Wooten MD [address] [place] [address] PCP - General Internal Medicine 05/21/20 Michael Mackey DO [address] [place] [address] Attending Hematology/Oncology 08/21/13 Plating Stripper Relationship Specialty Start Date End Date Christiano Wooten MD [address] [place] [address] PCP - General Internal Medicine 05/21/20 Michael Mackey DO [address] [place] [address] Attending Hematology/Oncology 08/21/13 Plating Stripper Relationship Specialty Start Date End Date Christiano Wooten MD [address] [place] [address] PCP - General Internal Medicine 05/21/20 Michael Mackey DO [address] [facility] [place] [address] Attending Hematology/Oncology 08/21/13 Plating Stripper Relationship Specialty Start Date End Date Christiano Wooten MD [address] [place] [address] PCP - General Internal Medicine 05/21/20 Michael Mackey DO [address] [place] [address] Attending Hematology/Oncology 08/21/13 Plating Stripper Relationship Specialty Start Date End Date Christiano Wooten MD [address] [place] [address] PCP - General Internal Medicine 05/21/20 Michael Mackey DO [address] [facility] [place] [address] Attending Hematology/Oncology 08/21/13 Plating Stripper Relationship Specialty Start Date End Date Christiano Wooten MD [address] [facility] [place] [id number] [phone] PCP - General Internal Medicine 05/21/20 Michael Mackey DO [address] [place] [address] Attending Hematology/Oncology 08/21/13 Plating Stripper Relationship Specialty Start Date End Date Christiano Wooten MD [address] [facility] [place], [place] [address] PCP - General Internal Medicine 05/21/20 Michael Mackey DO [address] [place] [address] Attending Hematology/Oncology 08/21/13 Plating Stripper Relationship Specialty Start Date End Date Christiano Wooten MD [address] [place] [address] PCP - General Internal Medicine 05/21/20 Michael Mackey DO [address] [place] [address] Attending Hematology/Oncology 08/21/13 Cheryl Fisher, CHAS.PHARMACEUTICAL OFFICER [address] [facility] [place] [id number] [phone] Professor Of Sport Management Internal Medicine 01/22/24 Plating Stripper Relationship Specialty Start Date End Date Christiano Wooten MD [address] [facility] [place] [id number] PCP - General Internal Medicine 05/21/20 Michael Mackey DO [address] [place] [address] Attending Hematology/Oncology 08/21/13 Cheryl Fisher, ACID TREATER.PHARMACEUTICAL OFFICER [address] [place] [address] Professor Of Sport Management Internal Medicine 01/22/24 Plating Stripper Relationship Specialty Start Date End Date Christiano Wooten MD [address] [place] [address] PCP - General Internal Medicine 05/21/20 Michael Mackey DO [address] [place] [address] Attending Hematology/Oncology 08/21/13 Cheryl Fisher, ACID TREATER.PHARMACEUTICAL OFFICER [address] [place] [place] [address] Professor Of Sport Management Internal Medicine 01/22/24 Plating Stripper Relationship Specialty Start Date End Date Christiano Wooten MD [address] [place] [place] [address] PCP - General Internal Medicine 05/21/20 Michael Mackey DO [address] [place] [address] Attending Hematology/Oncology 08/21/13 Cheryl Fisher, ACID TREATER.PHARMACEUTICAL OFFICER [address] [place] [address] Professor Of Sport Management Internal Medicine 01/22/24 Plating Stripper Relationship Specialty Start Date End Date Christiano Wooten MD [address] [place] [address] PCP - General Internal Medicine 05/21/20 Michael Mackey DO [address] [place] [address] Attending Hematology/Oncology 08/21/13 Cheryl Fisher, ACID TREATER.PHARMACEUTICAL OFFICER [address] [place] [address] Professor Of Sport Management Internal Medicine 01/22/24 Plating Stripper Relationship Specialty Start Date End Date Christiano Wooten MD [address] [place] [address] PCP - General Internal Medicine 05/21/20 Michael Mackey DO [address] [place] [address] Attending Hematology/Oncology 08/21/13 Cheryl Fisher, ACID TREATER.PHARMACEUTICAL OFFICER [address] [place] [address] Professor Of Sport Management Internal Medicine 01/22/24 Plating Stripper Relationship Specialty Start Date End Date Christiano Wooten MD [address] [place] [address] PCP - General Internal Medicine 05/21/20 Michael Mackey DO [address] [place] [address] Attending Hematology/Oncology 08/21/13 Cheryl Fisher, ACID TREATER.PHARMACEUTICAL OFFICER [address] [place], [place] [address] Professor Of Sport Management Internal Medicine 01/22/24 Plating Stripper Relationship Specialty Start Date End Date Christiano Wooten [address] [place], [place] [address]271 PCP - General Internal Medicine 04/10/24 Radha Terry MD [address] [place] [address] Surgeon General Surgery 04/10/24 Eli Hernández, DARIAN Nurse Navigator Oncology 04/10/24 Plating Stripper Relationship Specialty Start Date End Date Christiano Wooten [address] [place] [address] PCP - General Internal Medicine 04/10/24 Radha Terry MD [address] [place] [address] Surgeon General Surgery 04/10/24 Eli Hernández, RN Nurse Navigator Oncology 04/10/24 Plating Stripper Relationship Specialty Start Date End Date Christiano Wooten MD [address] [place] [address] PCP - General Internal Medicine 05/21/20 Michael Mackey DO [address] [place] [address] Attending Hematology/Oncology 08/21/13 Cheryl Fisher, ACID TREATER.PHARMACEUTICAL OFFICER [address] [place] [address] Professor Of Sport Management Internal Medicine 01/22/24 Radha Terry [address] [phone] General Surgery 04/16/24 Plating Stripper Relationship Specialty Start Date End Date Christiano Wooten MD [address] [place], [place] [address] PCP - General Internal Medicine 05/21/20 Michael Mackey DO [address] [place] [address] Attending Hematology/Oncology 08/21/13 Cheryl Fisher, ACID TREATER.PHARMACEUTICAL OFFICER [address] [place], [place] [address] Professor Of Sport Management Internal Medicine 01/22/24 Radha Terry [address] [phone] General Surgery 04/16/24 Plating Stripper Relationship Specialty Start Date End Date Christiano Wooten [address] [place], [place] [address]511 PCP - General Internal Medicine 04/10/24 Radha Terry MD [address], [place] [id number] Surgeon General Surgery 04/10/24 Eli Hernández, DARIAN Nurse Navigator Oncology 04/10/24 Plating Stripper Relationship Specialty Start Date End Date Christiano Wooten [address] [place], [place] [id number] PCP - General Internal Medicine 04/10/24 Radha Terry MD [address] [place] [address] Surgeon General Surgery 04/10/24 Eli Hernández, RN Nurse Navigator Oncology 04/10/24 Plating Stripper Relationship Specialty Start Date End Date Christiano Wooten [address] [place] [address] PCP - General Internal Medicine 04/10/24 Radha Terry MD [address] [facility] [place] [address] Surgeon General Surgery 04/10/24 Eli Hernández, DARIAN Nurse Navigator Oncology 04/10/24 Plating Stripper Relationship Specialty Start Date End Date Christiano Wooten [address] [place] [address] PCP - General Internal Medicine 04/10/24 Radha Terry MD [address] [facility] [place] [address] Surgeon General Surgery 04/10/24 Eli Hernández, RN Nurse Navigator Oncology 04/10/24 Plating Stripper Relationship Specialty Start Date End Date Christiano Wooten [address] [place] [address] PCP - General Internal Medicine 04/10/24 Radha Terry MD [address] [facility] [place], [place] [phone] Surgeon General Surgery 04/10/24 Eli Hernández RN Nurse Navigator Oncology 04/10/24 Plating Stripper Relationship Specialty Start Date End Date Christiano Wooten [address] [place], [place] [address]41 PCP - General Internal Medicine 04/10/24 Radha Terry MD [address] [place] [address] [id number] Surgeon General Surgery 04/10/24 Eli Hernández RN Nurse Navigator Oncology 04/10/24 Plating Stripper Relationship Specialty Start Date End Date Christiano Wooten MD [address] [place], [place] [address]31 PCP - General Internal Medicine 05/21/20 Michael Mackey DO [address] [place], [place] [address]81 Attending Hematology/Oncology 08/21/13 Cheryl Fisher, ACID TREATER.PHARMACEUTICAL OFFICER [address] [place], [place] 317771 Professor Of Sport Management Internal Medicine 01/22/24 Radha Terry [address] [place] [phone] General Surgery 04/16/24 Liz Salomon MD [address] [place], [place] [address]221 Physician Radiation Oncology 04/18/24 Plating Stripper Relationship Specialty Start Date End Date Christiano Wooten MD [address] [place] [address] PCP - General Internal Medicine 05/21/20 Michael Mackey DO [address] [place] [address] Attending Hematology/Oncology 08/21/13 Cheryl Fisher, ACID TREATER.PHARMACEUTICAL OFFICER [address] [place] [address] Professor Of Sport Management Internal Medicine 01/22/24 Radha Terry [address] [place] [phone] General Surgery 04/16/24 Liz Salomon MD [address] [place] [address] Physician Radiation Oncology 04/18/24 Plating Stripper Relationship Specialty Start Date End Date Christiano Wooten MD [address] [place] [address] PCP - General Internal Medicine 05/21/20 Michael Mackey DO [address] [place] [address] Attending Hematology/Oncology 08/21/13 Cheryl Fisher, ACID TREATER.PHARMACEUTICAL OFFICER [address] [place] [address] Professor Of Sport Management Internal Medicine 01/22/24 Radha Terry [address] [place] [phone] General Surgery 04/16/24 Liz Salomon MD [address] [place] [address] Physician Radiation Oncology 04/18/24 Plating Stripper Relationship Specialty Start Date End Date Christiano Wooten MD [address] [place] [address] PCP - General Internal Medicine 05/21/20 Michael Mackey DO [address] [place] [address] Attending Hematology/Oncology 08/21/13 Cheryl Fisher, ACID TREATER.PHARMACEUTICAL OFFICER [address] [place] [address] Professor Of Sport Management Internal Medicine 01/22/24 Radha Terry [address] [place] [phone] General Surgery 04/16/24 Liz Salomon MD [address] [place] [address] Physician Radiation Oncology 04/18/24 Plating Stripper Relationship Specialty Start Date End Date Christiano Wooten MD [address] [place] [address] PCP - General Internal Medicine 05/21/20 Michael Mackey DO [address] [place] [address] Attending Hematology/Oncology 08/21/13 Cheryl Fisher, ACID TREATER.PHARMACEUTICAL OFFICER [address] [place] [address] Professor Of Sport Management Internal Medicine 01/22/24 Radha Terry [address] [place] [phone] General Surgery 04/16/24 Liz Salomon MD [address] [place] [address] Physician Radiation Oncology 04/18/24 Plating Stripper Relationship Specialty Start Date End Date Christiano Wooten MD [address] [place] [address] PCP - General Internal Medicine 05/21/20 Michael Mackey DO [address] [place] [address] Attending Hematology/Oncology 08/21/13 Cheryl Fisher, ACID TREATER.[facility] [address] [place] [address] Professor Of Sport Management Internal Medicine 01/22/24 Radha Terry 95 [facility] [address] [place] [phone] General Surgery 04/16/24 Liz Salomon MD [address] [place] [address] Physician Radiation Oncology 04/18/24 Plating Stripper Relationship Specialty Start Date End Date Christiano Wooten MD [address] [place] [address] PCP - General Internal Medicine 05/21/20 Michael aMckey DO [address] [place] [address] Attending Hematology/Oncology 08/21/13 Cheryl Fisher, ACID TREATER.PHARMACEUTICAL OFFICER [address] [place] [address] Professor Of Sport Management Internal Medicine 01/22/24 Radha Terry [address] [facility] [place] [phone] General Surgery 04/16/24 Liz Salomon MD [address] [place] [address] Physician Radiation Oncology 04/18/24 Plating Stripper Relationship Specialty Start Date End Date Christiano Wooten MD [address] [place] [address] PCP - General Internal Medicine 05/21/20 Michael Mackey DO [address] [place] [address] Attending Hematology/Oncology 08/21/13 Cheryl Fisher, ACID TREATER.PHARMACEUTICAL OFFICER [address] [place] [address] Professor Of Sport Management Internal Medicine 01/22/24 Radha Terry [address] [place] [phone] General Surgery 04/16/24 Liz Salomon MD [address] [place] [address] Physician Radiation Oncology 04/18/24 Plating Stripper Relationship Specialty Start Date End Date Christiano Wooten MD [address] [place] [address] PCP - General Internal Medicine 05/21/20 Michael Mackey DO [address] [place] [address] Attending Hematology/Oncology 08/21/13 Cheryl Fisher, ACID TREATER.PHARMACEUTICAL OFFICER [address] [place] [address] Professor Of Sport Management Internal Medicine 01/22/24 Radha Terry [address] [place] [phone] General Surgery 04/16/24 Liz Salomon MD [address] [place] [address] Physician Radiation Oncology 04/18/24 Plating Stripper Relationship Specialty Start Date End Date Christiano Wooten MD [address] [place] [address] PCP - General Internal Medicine 05/21/20 Michael Mackey DO [address] [place] [address] Attending Hematology/Oncology 08/21/13 Cheryl Fisher, ACID TREATER.PHARMACEUTICAL OFFICER [address] [place] [address] Professor Of Sport Management Internal Medicine 01/22/24 Radha Terry [address] [place] [address] General Surgery 04/16/24 Liz Salomon MD [address] [place] [address] Physician Radiation Oncology 04/18/24 Plating Stripper Relationship Specialty Start Date End Date Christiano Wooten MD [address] [place] [address] PCP - General Internal Medicine 05/21/20 Michael Mackey DO [address] [place] [address] Attending Hematology/Oncology 08/21/13 Cheryl Fisher, ACID TREATER.PHARMACEUTICAL OFFICER [address] [place] [address] Professor Of Sport Management Internal Medicine 01/22/24 Radha Terry [address] [place] [address] General Surgery 04/16/24 Liz Salomon MD [address] [place] [address] Physician Radiation Oncology 04/18/24 Plating Stripper Relationship Specialty Start Date End Date Christiano Wooten MD [address] [place] [address] PCP - General Internal Medicine 05/21/20 Michael Mackey DO [address] [place] [address] Attending Hematology/Oncology 08/21/13 Cheryl Fisher, ACID TREATER.PHARMACEUTICAL OFFICER [address] [place] [address] Professor Of Sport Management Internal Medicine 01/22/24 Radha Terry [address] [place] [phone] General Surgery 04/16/24 Liz Salomon MD [address] [place] [address] Physician Radiation Oncology 04/18/24 Plating Stripper Relationship Specialty Start Date End Date Christiano Wooten MD [address] [place] [address] PCP - General Internal Medicine 05/21/20 Michael Mackey DO [address] [place] [address] Attending Hematology/Oncology 08/21/13 Cheryl Fisher, ACID TREATER.PHARMACEUTICAL OFFICER [address] [place] [address] Professor Of Sport Management Internal Medicine 01/22/24 Radha Terry [address] [place] [phone] General Surgery 04/16/24 Liz Salomon MD [address] [place] [address] Physician Radiation Oncology 04/18/24 Plating Stripper Relationship Specialty Start Date End Date Christiano Wooten MD [address] [place] [address] PCP - General Internal Medicine 05/21/20 Michael Mackey DO [address] [place] [address] Attending Hematology/Oncology 08/21/13 Cheryl Fisher, ACID TREATER.PHARMACEUTICAL OFFICER [address] [place] [address] Professor Of Sport Management Internal Medicine 01/22/24 Radha Terry [address] [place] [phone] General Surgery 04/16/24 Liz Salomon MD [address] [place] [address] Physician Radiation Oncology 04/18/24 Plating Stripper Relationship Specialty Start Date End Date Christiano Wooten MD [address] [place] [address] PCP - General Internal Medicine 05/21/20 Michael Mackey DO [address] [place] [address] Attending Hematology/Oncology 08/21/13 Cheryl Fisher, ACID TREATER.PHARMACEUTICAL OFFICER [address] [place] [address] Professor Of Sport Management Internal Medicine 01/22/24 Radha Terry [address] [place] [phone] General Surgery 04/16/24 Liz Salomon MD [address] [place] [address] Physician Radiation Oncology 04/18/24 Plating Stripper Relationship Specialty Start Date End Date Christiano Wooten MD [address] [place] [address] PCP - General Internal Medicine 05/21/20 Michael Mackey DO [address] [place] [address] Attending Hematology/Oncology 08/21/13 Cheryl Fisher, ACID TREATER.[facility] [address] [place] [address] Professor Of Sport Management Internal Medicine 01/22/24 Radha Terry [address] [place] [phone] General Surgery 04/16/24 Liz Salomon MD [address] [place] [address] Physician Radiation Oncology 04/18/24 Plating Stripper Relationship Specialty Start Date End Date Christiano Wooten MD [address] [place] [address] PCP - General Internal Medicine 05/21/20 Michael Mackey DO [address] [place] [address] Attending Hematology/Oncology 08/21/13 Cheryl Fisher, ACID TREATER.PHARMACEUTICAL OFFICER [address] [place] [address] Professor Of Sport Management Internal Medicine 01/22/24 Radha Terry [address] [place] [phone] General Surgery 04/16/24 Liz Salomon MD [address] [place] [address] Physician Radiation Oncology 04/18/24 Plating Stripper Relationship Specialty Start Date End Date Christiano Wooten MD [address] [place] [address] PCP - General Internal Medicine 05/21/20 Michael Mackey DO [address] [place] [address] Attending Hematology/Oncology 08/21/13 Cheryl Fisher, ACID TREATER.PHARMACEUTICAL OFFICER [address] [place] [address] Professor Of Sport Management Internal Medicine 01/22/24 Radha Terry [address] [place] [phone] General Surgery 04/16/24 Liz Salomon MD [address] [place] [address] Physician Radiation Oncology 04/18/24 Plating Stripper Relationship Specialty Start Date End Date Christiano Wooten MD [address] [place], [place] [address] PCP - General Internal Medicine 05/21/20 Michael Mackey DO [address] [place] [address]691 Attending Hematology/Oncology 08/21/13 Cheryl Fisher, ACID TREATER.PHARMACEUTICAL OFFICER [address] [place], [place] [address] Professor Of Sport Management Internal Medicine 01/22/24 Radha Terry [address] [phone] General Surgery 04/16/24 Liz Salomon MD [address] [facility] [place] [place] [phone] Physician Radiation Oncology 04/18/24 Team Status: Active Member Role/Relationship Status Dates No Primary Care Physician Family Provider Active Dr. Christiano Wooten MD Primary Care Provider Active Team Status: Inactive Member Role/Relationship Status Dates Dr. Christiano Wooten MD Primary Care Provider Active Start: August 12, 2024 End: August 12, 2024 Dr. Christiano Wooten MD Referring Provider Active Start: August 12, 2024 End: August 12, 2024 RITA Renee Attending Provider Active S tart: August 12, 2024 End: August 12, 2024 Goals (unrecognized section and content) Goals may be documented in a n alternate sectionGoals may be documented in an alternate sectionGoals may be documented in an alternate section Scheduled Active and Recently Administ ered Medications (unrecognized section and content) Medication Order 03/31/2024 04/01/2024 04/02/2024 acetaminophen (Tylenol) tablet 1,000 mg 1,000 mg, Oral, Once, On Mon04/02/24 at 0545, For 1 dose, Preprocedure, Administer 60 minutes prior to surgery. 0545 (Not Given - Pr ovider: Savannah Jara RN - Reason: Other - Comment: Patient took 1,000 mg this morning) ceFAZolin in dextrose 4% (Ancef) IVPB 2,000 mg (COMPLETED) 2,000 mg, IntraVENous, Administer over 30 Minutes, Product Engineer to O.R., On Mon04/02/24 at 0545, For 1 dose, Preprocedure, Administer within 1 hour prior to incision. Recommend to repeat in 3-4 hours after initial dose if still intra-op. premix bag, Suspected Indication (Select all that apply): Surgical Prophylaxis 0741 (Given - Provid er: Yarelis Wise CRNA)1010 (Anesthesia Volume Adjustment - Provider: Yarelis Wise CRNA) enoxaparin (Lovenox) syringe 40 mg (COMPLETED) 40 mg, SubCUTAneous, Once, On Mon04/02/24 at 0545, For 1 dose, Preprocedure, Indication of Use: Prophylaxis-DVT/PE 0623 (Given - Provid er: Savannah Jara RN) famotidine (Pepcid) tablet 20 mg (COMPLETED)(Linked Group 1) 20 mg, Oral, Once, On Mon04/02/24 at 0545, For 1 dose, Preprocedure, IV or Oral 0624 (Given - Provid er: Savannah Jara RN) Nozin Nasal Plaster Maker Popswab 2 Swab (COMPLETED) 2 Swab (1 Package), Topical, Once, On Mon04/02/24 at 0545, For 1 dose, Preprocedure, Flip ampule around in paper sleeve to expose swab tip. Shake well. With sleeve on ampule, crush at dot to pop. Squeeze to wet swab tip. Swab around nostril rims 8 times in each direction. Squeeze to rewet swab tip and repeat. Repeat for other nostril. Caution : Do not extend in nose beyond swab tip. Appy to skin only. Discard after use. 0624 (Given - Provid er: Savannah Jara RN) sodium chloride 0.9% (NS) flush 10 mL 10 mL, IntraVENous, Every 12 hours scheduled (2 times per day), First dose on Mon04/02/24 at 0900, Preprocedure 0900 (Canceled Entry - Provider: Automatic Discharge Provider - Comment: Automatically canceled at discontinue of medication order) sodium chloride 0.9% (NS) flush 10 mL 10 mL, IntraVENous, Every 12 hours scheduled (2 times per day), First dose on Mon04/02/24 at 1030, Recovery (only) 1030 (Canceled Entry - Provider: Automatic Discharge Provider - Comment: Automatically canceled at discontinue of medication order) sodium chloride 0.9% (NS) flush 5-40 mL 5-40 mL, IntraVENous, Every 12 hours, First dose on Mon04/02/24 at 0545, Preprocedure, For Line Patency: Peripheral IV = 5 mL; Midline or Central Line = 10 mL/lumen. If following IV push medication, administer flush at same rate as the IV push. Flush volume is determined by type of infusion therapy being given. For non-viscous solutions use: Peripheral IV = 5 mL Midline or Central Line = 10 mL/lumen For viscous solutions (i.e. blood components, parenteral nutrition, contrast media, or after obtaining blood sample) use: Peripheral IV = 10 mL Midline or Central Line = 20 mL/lumen 0545 (Canceled Entry - Provider: Automatic Discharge Provider - Comment: Automatically canceled at discontinue of medication order) Continuous Medication Order 03/31/2024 04/01/2024 04/02/2024 lactated Ringer's (LR) infusion 50 mL/hr, IntraVENous, Continuous, Starting on Mon04/02/24 at 0545, Preprocedure, Upon admission to sameday - please start iv if patient does not have iv access. Use 500ml NS for patients on dialysis. 0730 (New Bag - Prov ider: Yarelis Wise CRNA)1005 (Stopped - Provider: Yarelis Wise CRNA) lactated ringers infusion 125 mL/hr, IntraVENous, Continuous, Starting on Mon04/02/24 at 1030, Recovery (only) 1030 (Canceled Entry - Provider: Automatic Discharge Provider - Comment: Automatically canceled at discontinue of medication order) PRN Medication Order 03/31/2024 04/01/2024 04/02/2024 ALPRAZolam (Xanax) disintegrating tablet 0.25 mg (COMPLETED) 0.25 mg, Oral, Once PRN, anxiety, Starting on Mon04/02/24 at 0542, For 1 dose, Preprocedure, Please do not administer prior to obtaining consent and/or history and physical. 0624 (Given - Provid er: Savannah Jara RN) artiss fibrin sealant syringe (CANCELED) As needed, Starting on Mon04/02/24 at 0952, Intraprocedure 0952 (Given - Provid er: Jaya Cazares III, MD - Comment: right axilla) bupivacaine-EPINEPHrine PF (Marcaine w/EPI) 0.25% -[id number] injection (CANCELED) As needed, Starting on Mon04/02/24 at 0810, Intraprocedure 0810 (Given - Provid er: Jaya Cazares III, MD) ceFAZolin (Ancef) 2,000 mg, gentamicin PF (Garamycin) 160 mg in sodium chloride 0.9 % 1,000 mL OR irrigation (CANCELED) As needed, Starting on Mon04/02/24 at 0759, Intraprocedure 0759 (Given - Provid er: Jaya Cazares III, MD - Comment: MIXED W/ 118ML PVP POVIDONE-IODINE 7.5% STERILE SOLUTION) diphenhydrAMINE (BENADryl) injection 12.5 mg 12.5 mg, IntraVENous, Once PRN, itching, Starting on Mon04/02/24 at 1019, For 1 dose, Recovery (only) fentaNYL (Sublimaze) injection 25 mcg 25 mcg, IntraVENous, Every 5 min PRN, moderate pain (4-6), Starting on Mon04/02/24 at 1019, For 3 doses, Recovery (only), Phase I and Phase II- Initial therapy for moderate pain (4-6). Restricted to a 90 minute time frame starting when the patient can verbally state their pain score. If after 2 doses the pain score does not decrease by more than one point, then call the provider. If oral meds are utilized, do not return to initial therapy medications. 1127 (Given - Provid er: Dayana Morel RN) fentaNYL (Sublimaze) injection 50 mcg 50 mcg, IntraVENous, Every 5 min PRN, severe pain (7-10), Starting on Mon04/02/24 at 1019, For 3 doses, Recovery (only), Phase I and Phase II- Initial therapy for severe pain (7-10). Restricted to a 90 minute time frame starting when the patient can verbally state their pain score. If after 2 doses the pain score does not decrease by more than one point, then call the provider. If oral meds are utilized, do not return to initial therapy medications. 1102 (Given - Provid er: Dayana Morel RN) hydrALAZINE (Apresoline) injection 5 mg(Linked Group 2) 5 mg, IntraVENous, Every 15 min PRN, high blood pressure, for SBP greater than 160 mmHg for 2 consecutive measurements taken from different sites, Starting on Mon04/02/24 at 1019, For 2 doses, Recovery (only), PRN for SBP > 160 for 2 consecutive measurements, and if one of the following conditions is met: 1) If IV labetolol is ineffective. 2) If HR is under 60. 3) If patient has heart block, COPD or asthma. If both labetalol and hydralazine ineffective, notify anesthesia provider. labetalol (Normodyne,Trandate) injection 5 mg(Linked Group 2) 5 mg, IntraVENous, Every 10 min PRN, high blood pressure, for SBP greater than 160 mmHg for 2 consecutive measurements taken from different sites., Starting on Mon04/02/24 at 1019, For 2 doses, Recovery (only), PRN for SBP >160 for 2 consecutive measurements, if HR is 60 or greater. If beta wanda is contraindicated (HR less than 60, heart block, COPD or asthma) use hydralazine IV order. ondansetron (Zofran) injection 4 mg 4 mg, IntraVENous, Once PRN, nausea, Starting on Mon04/02/24 at 1019, For 1 dose, Recovery (only), Initial antiemetic therapy. oxyCODONE (Roxicodone) immediate release tablet 10 mg (COMPLETED)(Linked Group 3) 10 mg, Oral, Every 4 hours PRN, severe pain (7-10), Starting on Mon04/02/24 at 1019, For 1 dose, Recovery (only), PHASE II 1228 (Given - Provid er: Dayana Morel RN) sodium chloride 0.9 % bolus 500 mL 500 mL, IntraVENous, at 1,000 mL/hr, Administer over 0.5 Hours, PRN, Anti-nausea, Starting on Mon04/02/24 at 1019, Recovery (only), Indications: Anti-nausea sodium chloride 0.9 % infusion 5-250 mL/hr, IntraVENous, PRN, if patient receiving piggyback infusions and maintenance fluids are not ordered OR KVO fluids to protect IV site / prevent frequent line interruptions / long duration, Starting on Mon04/02/24 at 0542, Preprocedure, For piggyback infusion, administer at same rate as piggyback for a total of 25 mL. Enter 25 mL into dose field and piggyback rate into rate field of order. If piggyback is infusing at a rate less than 100 mL/hr, enter 25 mL into dose field and 100 mL/hr into rate field of order. For KVO fluids, enter rate of 20 mL/hr or less into rate field of order. sodium chloride 0.9 % infusion 5-250 mL/hr, IntraVENous, PRN, if patient receiving piggyback infusions and maintenance fluids are not ordered OR KVO fluids to protect IV site / prevent frequent line interruptions/ long duration, Starting on Mon04/02/24 at 0542, Preprocedure, For piggyback infusion, administer at same rate as piggyback for a total of 25 mL. Enter 25 mL into dose field and piggyback rate into rate field of order. If piggyback is infusing at a rate less than 100 mL/hr, enter 25 mL into dose field and 100 mL/hr into rate field of order. For KVO fluids, enter rate of 20 mL/hr or less into rate field of order. sodium chloride 0.9 % infusion 5-250 mL/hr, IntraVENous, PRN, if patient receiving piggyback infusions and maintenance fluids are not ordered OR KVO fluids to protect IV site / prevent frequent line interruptions/ long duration, Starting on Mon04/02/24 at 1019, Recovery (only), For piggyback infusion, administer at same rate as piggyback for a total of 25 mL. Enter 25 mL into dose field and piggyback rate into rate field of order. If piggyback is infusing at a rate less than 100 mL/hr, enter 25 mL into dose field and 100 mL/hr into rate field of order. For KVO fluids, enter rate of 20 mL/hr or less into rate field of order. sodium chloride 0.9 % irrigation solution (CANCELED) As needed, Starting on Mon04/02/24 at 0759, Intraprocedure 0759 (Given - Provid er: Jaya Cazares III, MD) sodium chloride 0.9% (NS) flush 10 mL 10 mL, IntraVENous, PRN, line care, Starting on Mon04/02/24 at 0542, Preprocedure, After every IV line use sodium chloride 0.9% (NS) flush 10 mL 10 mL, IntraVENous, PRN, line care, Starting on Mon04/02/24 at 1019, Recovery (only), After every IV line use sodium chloride 0.9% (NS) flush 5-40 mL 5-40 mL, IntraVENous, PRN, line care, After every IV line use, Starting on Mon04/02/24 at 0542, Preprocedure, For Line Patency: Peripheral IV = 5 mL; Midline or Central Line = 10 mL/lumen. If following IV push medication, administer flush at same rate as the IV push. Flush volume is determined by type of infusion therapy being given. For non-viscous solutions use: Peripheral IV = 5 mL Midline or Central Line = 10 mL/lumen For viscous solutions (i.e. blood components, parenteral nutrition, contrast media, or after obtaining blood sample) use: Peripheral IV = 10 mL Midline or Central Line = 20 mL/lumen Linked Groups Order Group 1: famotidine (Pepcid) tablet 20 mg (COMPLETED)Jump to med 20 mg, Oral, Once, On Mon04/02/24 at 0545, For 1 dose, Preprocedure, IV or Oral Or famotidine (Pepcid) 20 mg in sodium chloride (PF) 0.9 % 10 mL injection (COMPLETED) 20 mg, IntraVENous, Administer over 2 Minutes, Once, On Mon04/02/24 at 0545, For 1 dose, Preprocedure, IV or Oral Group 2: labetalol (Normodyne,Trandate) injection 5 mgJump to med 5 mg, IntraVENous, Every 10 min PRN, high blood pressure, for SBP greater than 160 mmHg for 2 consecutive measurements taken from different sites., Starting on Mon04/02/24 at 1019, For 2 doses, Recovery (only), PRN for SBP >160 for 2 consecutive measurements, if HR is 60 or greater. If beta wanda is contraindicated (HR less than 60, heart block, COPD or asthma) use hydralazine IV order. Or hydrALAZINE (Apresoline) injection 5 mgJump to med 5 mg, IntraVENous, Every 15 min PRN, high blood pressure, for SBP greater than 160 mmHg for 2 consecutive measurements taken from different sites, Starting on Mon04/02/24 at 1019, For 2 doses, Recovery (only), PRN for SBP > 160 for 2 consecutive measurements, and if one of the following conditions is met: 1) If IV labetolol is ineffective. 2) If HR is under 60. 3) If patient has heart block, COPD or asthma. If both labetalol and hydralazine ineffective, notify anesthesia provider. Group 3: oxyCODONE (Roxicodone) immediate release tablet 5 mg (COMPLETED) 5 mg, Oral, Every 4 hours PRN, moderate pain (4-6), Starting on Mon04/02/24 at 1019, For 1 dose, Recovery (only), PHASE II Or oxyCODONE (Roxicodone) immediate release tablet 10 mg (COMPLETED)Jump to med 10 mg, Oral, Every 4 hours PRN, severe pain (7-10), Starting on Mon04/02/24 at 1019, For 1 dose, Recovery (only), PHASE II FOR RECORDS PERTAINING TO PATIENTS WHO ARE OR HAVE BEEN ENROLLED IN A CHEMICAL DEPENDENCY/SUBSTANCEABUSE PROGRAM, SOME INFORMATION MAY BE OMITTED. This clinical summary was aggregated from multiple sources. Caution should be exercised in using it in the provision of clinical care. This summary normalizes information from multiple sources, and as a consequence, information in this document may materially change the coding, format and clinical context of patient data. In addition, data may be omitted in some cases. CLINICAL DECISIONS SHOULD BE BASED ON THE PRIMARY CLINICAL RECORDS. [facility]. provides no warranty or guarantee of the accuracy or completeness of information in this document.
[2024-08-15 00:07] LABS: Giardia Lamblia, Stool EIA Negative (Negative); Pancreatic Elastase, Fecal 518 (>200)
[2024-08-15 01:07] LABS: Calprotectin, Stool 275 ug/g (0-120)
== END | disposition home or self-care (01) ==
LOC: LABSPEC 07:00
PROVIDERS: PCP Internal Medicine
DX: K58.9 Irritable bowel syndrome, unspecified (principal); K21.9 Gastro-esophageal reflux disease without esophagitis; R19.7 Diarrhea, unspecified
CPT/HCPCS: 82653; 83993; 87329; 87493; 87506